=== PATIENT | female | born 1940 | race Caucasian/White ===

== ENCOUNTER 2017-10-11 08:23 | Emergency (ER) | payer MEDICARE, SELFPAY ==
[2017-10-11 08:24] VITALS: BP 131/67; PULSE 88; RESP 16; TEMP 36.7; O2SAT 97; BMI 22.8
--- NOTE | 2017-10-11 08:36 | CT_ITS ---
STUDY: CT ABDOMEN AND PELVIS WITH CONTRAST REASON FOR EXAM: Female, 77 years old. Right lower quadrant and abdominal pain since Saturday. RADIATION DOSAGE (If Supplied By Facility): CTDIvol = ( 9.75 ) mGy, DLP = ( 471.64 ) mGycm TECHNIQUE: Transaxial images were obtained from the dome of the diaphragm to the symphysis pubis without oral contrast. 100 ml of Isovue 300 contrast was administered. Sagittal and coronal images were reconstructed. Individualized dose optimization techniques were used for this CT. COMPARISON: Comparison is made with prior study dated April 11, 2013. FINDINGS: Stable mild degree of increased markings at the lung bases suggestive of scarring. Coronary artery calcification. Mild degree of intrahepatic biliary ductal dilatation. The patient is status post cholecystectomy. The common bile duct is slightly dilated measuring 9.3 mm. This is unchanged. Normal spleen. Normal pancreas. Normal bilateral adrenal glands. Normal right kidney. Normal left kidney. There is a small hiatal hernia. There is evidence of prior subtotal gastric resection and gastric bypass surgery with anastomosis with the proximal small bowel. Normal small intestine. Fecal material is seen in the colon worse in the right hemicolon. Scattered sigmoid diverticula. The appendix is visualized and appears normal. There is diffuse atherosclerotic calcification of the abdominal aorta, without a demonstrated aneurysm. Normal inferior vena cava. Normal retroperitoneum. Normal urinary bladder. The patient is status post ventral hernia repair with mesh. There are diffuse degenerative changes of the visualized lumbar spine. CT/Abdomen/Pelvis W IV Cont ONLY IMPRESSION: Status post gastric surgery and anastomosis. No acute abnormality is seen. Electronically Signed: Terrell Jules MD at 10:36 EDT Tel [phone], Service support ,
--- NOTE | 2017-10-11 08:40 | ED.DCSUM_ITS ---
- ER Visit Summary Date of Service: 10/11/17 Chief Complaint: Abdominal pain History of Present Illness: The patient is a 77 F right lower quadrant abdominal pain for 3 days. The pain sometimes radiates down her right leg and sometimes into her right upper quadrant, but it is mostly in her right lower quadrant. She has chronic diarrhea, but says this has stopped and now she is not having bowel movements. She did have some fecal incontinence when this started, but is no longer having bowel movements. History of Mica-en-Y gastric bypass and cholecystectomy. Also history of pancreatic mass. Physical Examination: Vital signs are unremarkable. Afebrile. Nontoxic and in no acute distress. Heart regular. Lungs clear. Abdomen soft, nontender, nondistended, normal bowel sounds. Back nontender. Skin appears normal. Test Results: Laboratory studies, urinalysis, and CT pending. Emergency Department Course and Treatment: Exam was fairly unremarkable. No sign of obstruction. No infectious symptoms. We will check basic labs, urinalysis, CT given her age and surgical history. Hemoglobin 11.6. CO2 33, glucose 126, creatinine 1.06. Lipase and hepatic function unremarkable. Urinalysis shows positive leuk esterase, positive nitrites, 0-5 white cells and 1+ bacteria. Culture is pending. CT abdomen showed postoperative changes but nothing acute. Patient's vital signs and exam are unremarkable. Laboratory studies reassuring. No sign of sepsis. No sign of organ failure. She does have some evidence of a UTI. I will start her on Keflex. She will follow-up closely with her doctor. Return for any new or worsening issues. Treatment Plan: As above Disposition: Discharged Impression: 1. UTI acute cystitis This note was generated with [employer] dictation software. It may contain incorrect words, spelling, and punctuation that were not noted in review of the chart prior to signing ED Disposition - Plan for ED Patient: Chief Complaint: Abd Pain Referrals: Melissa Montes MD [Primary Care Provider] -
[2017-10-11] MEDS: 0.9% Normal Saline 1,000 ML 125 ML IV (08:55)
[2017-10-11] MEDS: Morphine 2 MG/ML Syringe IV (08:55)
[2017-10-11 08:58] LABS: Absolute Lymphocyte Count 1.94 X10^3/ul (0.83-4.51); Absolute Neutrophil Count 3.1 X10^3/uL (2.0-7.7); Basophil# 0.03 X10^3/uL; Basophil% 0.5 % (0-1); Eosinophil# 0.61 X10^3/uL; Eosinophils% 9.9 % (0-5); Hematocrit 37.3 % (37-47); Hemoglobin 11.6 g/dl (12.0-15.0); Lymphocyte # 1.94 X10^3/ul (4.0); Lymphocyte % 31.4 % (19-41); Mean Corp Hgb Conc 31.1 g/gl (32-36); Mean Corpuscular Hgb 29.4 pg (27.0-32.0); Mean Corpuscular Volume 94.7 fL (81-99); Mean Platelet Vol. 9.5 fl (6.2-12.0); Monocyte# 0.48 X10^3/uL; Monocyte% 7.8 % (0-10); Neutrophil # 3.12 X10^3/uL (2.7-7.7); Neutrophil % 50.4 % (47-70); POSITIVE COUNT NO; POSITIVE DIFFERENTIAL NO; POSITIVE MORPHOLOGY NO; Platelet Count 265 K/mm3 (150-450); RBC Distribution Width CV 12.7 % (11.6-14.6); RBC Distribution Width SD 44.2 fl (35.1-43.9); Red Blood Count 3.94 M/mm3 (4.2-5.4); White Blood Count 6.2 K/mm3 (4.4-11.0)
[2017-10-11 09:13] LABS: AST(SGOT) 14 U/L (15-37); Alanine Aminotransfer ALT/SGPT 16 U/L (13-56); Albumin, Serum 3.7 g/dL (3.2-5.0); Alkaline Phosphatase 96 U/L (45-117); Anion Gap 5 (5-15); BUN 14 mg/dL (7-18); BUN/Creat Ratio 13.2 RATIO (10-20); Calcium,Total 8.8 mg/dL (8.5-10.1); Chloride 103 mmol/L (98-107); Creatinine, Serum 1.06 mg/dL (0.55-1.02); EST Glomerular Filtration Rate 53 mL/min (>60); Est Glom Filt Rate - Afr Amer 65 mL/min (>60); Estimated Creatinine Clearance 35.15 ml/min; Globulin 3.7 g/dL (2.2-4.2); Glucose 126 mg/dL (74-106); Lipase 120 U/L (73-393); Potassium 4.2 mmol/L (3.5-5.1); Protein, Total 7.4 g/dL (6.4-8.2); Sodium Level 141 mmol/L (136-145)
[2017-10-11 10:31] LABS: Mucous, Urine 0 SEEN /hpf (<or=2+); Red Blood Cells-Urine 0 SEEN /hpf (0-5)
[2017-10-11 10:38] LABS: Color, Urine Yellow (Yellow); Glucose, Dipstick Normal (Normal); Ketone-Dipstick Negative (Negative); Leukocyte Esterase-Dipstick 25 /ul (Negative); Nitrite-Dipstick Positive (Negative); Occult Blood-Urine Negative /ul (Negative); Protein-Dipstick Negative (Negative); Urine Bilirubin Dipstick Negative (Negative); Urine Clarity Sl. Cloudy (Clear); Urine Urobilinogen Normal (Normal)
[2017-10-11 10:58] VITALS: BP 126/59; PULSE 62; RESP 15; O2SAT 97
[2017-10-11 10:58] LABS: Bacteria 1+ /hpf (None Seen); Squamous Epithelial Cells - UA 0-5 SEEN /hpf (5-10); White Blood Cells 0-5 SEEN /hpf (0-5)
--- NOTE | 2017-10-11 11:40 | ED.DEP ---
ED Disposition - Plan for ED Patient: Chief Complaint: Abd Pain Instructions: ED UTI Cystitis Female Prescriptions: Cephalexin [Keflex] 500 mg PO Q6 #28 cap Referrals: Melissa Montes MD [Primary Care Provider] -
== END 2017-10-11 12:04 | disposition home or self-care (01) ==
PROVIDERS: Emergency Provider Emergency Medicine; Family Provider Internal Medicine; PCP Internal Medicine
DX: N30.00 Acute cystitis without hematuria (principal); E11.9 Type 2 diabetes mellitus without complications; I10 Essential (primary) hypertension; E03.9 Hypothyroidism, unspecified; K52.9 Noninfective gastroenteritis and colitis, unspecified; G25.81 Restless legs syndrome; Z79.84 Long term (current) use of oral hypoglycemic drugs; Z79.899 Other long term (current) drug therapy; Z98.84 Bariatric surgery status; Z90.49 Acquired absence of other specified parts of digestive tract
CPT/HCPCS: 74177; 80053; 81001; 83690; 85025; 87086; 87088; 87186; 96361; 96374; 99282; J7030; Q9967

== ENCOUNTER → 2018-03-13 11:30 | Outpatient (CLI) | payer MEDICARE, SELFPAY ==
--- NOTE | 2018-03-13 11:35 | RAD_ITS ---
STUDY: X-RAY - PELVIS AND RIGHT HIP REASON FOR EXAM: Female, 77 years old. Low back pain and right hip pain x years. TECHNIQUE: Radiological exam, hip, unilateral, with pelvis when performed; 2 or 3 views. COMPARISON: None. FINDINGS: There is a non-specific bowel gas pattern. Normal visualized soft tissue structures. Normal bilateral iliac wings, sacroiliac joints and visualized sacrum. Normal bilateral superior and inferior pubic rami. Normal pubic symphysis. Normal bilateral ischial tuberosities. Normal visualized femoral head. Normal acetabulum. Normal hip joint. RAD/HIP, UNI W/ Pelvis 2-3 Views IMPRESSION: Normal x-ray examination of the pelvis and right hip. Electronically Signed: Miky Ramos MD at 9:03 EDT , Service support ,
--- NOTE | 2018-03-13 11:35 | RAD_ITS ---
STUDY: X-RAY - LUMBAR SPINE REASON FOR EXAM: Female, 77 years old. Low back pain and right hip pain x years. TECHNIQUE: 5 view(s) of the lumbar spine were obtained. COMPARISON: 12/14/2016. FINDINGS: Normal lumbar lordosis. There is no substantial scoliosis. Mild degenerative anterolisthesis of L3 on L4 is unchanged. Normal vertebral bodies and endplates. Mild L3-L4 disc space height narrowing. The remaining lumbar disc space heights are normal. No suspicious acute fractures. No lytic or blastic lesions. The soft tissue structures are unremarkable. RAD/L/S Spine Min 4 Views IMPRESSION: 1. Mild degenerative anterolisthesis of L3 on L4 with mild L3-L4 disc space height narrowing. 2. No acute fractures or acute osseous abnormality of the lumbar spine. 3. No interval change when compared to 12/14/2016. Electronically Signed: Miky Ramos MD at 9:02 EDT , Service support ,
== END ==
PROVIDERS: Family Provider Internal Medicine; PCP Internal Medicine; Visit Provider Nurse Practitioner Family
DX: M25.551 Pain in right hip (principal); M54.9 Dorsalgia, unspecified
CPT/HCPCS: 72110; 73502

== ENCOUNTER 2018-05-08 07:48 | Inpatient (IN) | payer MEDICARE, SELFPAY ==
[2018-05-08] VITALS (9 sets, daily range): BP systolic 93–119; BP diastolic 42–67; PULSE 97–111; RESP 14–18; TEMP 36.6–36.8; O2SAT 93–100; BMI 21.9; BMI 23.0
--- NOTE | 2018-05-08 08:07 | EKG12_ITS ---
Test Reason : GI BLEED Blood Pressure : / mmHG Vent. Rate : 105 BPM Atrial Rate : 105 BPM P-R Int : 134 ms QRS Dur : 078 ms QT Int : 340 ms P-R-T Axes : 064 -06 063 degrees QTc Int : 449 ms Sinus tachycardia Otherwise normal ECG Confirmed by SAKINA COHEN ([id number]), photographic editor CHANDLER WATSON ([id number]) on 05/12/2018 2:29:20 PM Referred By: JAZMIN Confirmed By:SAKINA COHEN
--- NOTE | 2018-05-08 08:15 | ED.VISSUMM ---
- ER Visit Summary Date of Service: 05/08/18 Chief Complaint: Diarrhea History of Present Illness: The patient is a 78 F with diarrhea. This is the third day. Her bowel movements are loose and dark. She believes she can smell blood. She does have some associated upper abdominal pain. She has a history of a Mica-en-Y gastric bypass which, according to the patient, required surgical revision, years ago. She had had some bleeding at that time. She does not use blood thinners. She has not seen gross blood. She denies any fevers, recent antibiotics, recent hospitalization. Physical Examination: Blood pressure 93/42 and heart rate 111. Otherwise vitals unremarkable. Afebrile. Patient is alert and oriented. Sitting comfortably. Slightly pale. Heart regular. Lungs clear. Upper hemiabdomen is slightly tender to palpation diffusely. No guarding or rebound. Chaperoned rectal exam showed no gross blood, masses, or tenderness. Test Results: EKG, laboratory studies, type and screen pending at this time. CT pending. Emergency Department Course and Treatment: Patient was placed on a monitor. She was treated with a fluid bolus and Protonix. It is unclear at this time if she is bleeding. Hemoccult testing is pending. Type and screen and coags pending. Imaging was ordered because of her pain. She declined pain medicine while awaiting results. Hemoccult testing was positive. Her hemoglobin was normal. Glucose 239, BUN 48, creatinine 4.35. Coags normal. Type and screen done. CT showed pancolitis. Patient will need admission. I spoke with the hospitalist who requested a lactate. She also requested we hold antibiotics until their evaluation first. Treatment Plan: As above Disposition: Admission Impression: 1. Acute kidney injury 2. Pancolitis This note was generated with [employer] dictation software. It may contain incorrect words, spelling, and punctuation that were not noted in review of the chart prior to signing ED Disposition - Plan for ED Patient: Chief Complaint: GI Bleed Referrals: Melissa Montes MD [Primary Care Provider] -
[2018-05-08 08:37] LABS: Absolute Neutrophil Count 6.8 X10^3/uL (2.0-7.7); Basophil# 0.02 X10^3/uL; Eosinophil# 0.01 X10^3/uL; Hematocrit 37.4 % (37-47); Lymphocyte # 1.27 X10^3/ul (4.0); Mean Corp Hgb Conc 32.1 g/gl (32-36); Mean Corpuscular Hgb 30.3 pg (27.0-32.0); Mean Corpuscular Volume 94.4 fL (81-99); Mean Platelet Vol. 10.1 fl (6.2-12.0); Monocyte# 1.85 X10^3/uL; Neutrophil # 6.82 X10^3/uL (2.7-7.7); Platelet Count 331 K/mm3 (150-450); RBC Distribution Width CV 13.3 % (11.6-14.6); RBC Distribution Width SD 45.9 fl (35.1-43.9); Red Blood Count 3.96 M/mm3 (4.2-5.4)
[2018-05-08] MEDS: 0.9% Normal Saline 1,000 ML 1000 ML IV (08:37)
[2018-05-08 08:38] LABS: Differential Indicated SCAN CRITERIA MET; POSITIVE COUNT NO; POSITIVE DIFFERENTIAL YES; POSITIVE MORPHOLOGY YES
[2018-05-08 08:48] LABS: ALB/GLOB Ratio 0.8 RATIO (0.9-2.4); AST(SGOT) 13 U/L (15-37); Alanine Aminotransfer ALT/SGPT 18 U/L (13-56); Albumin, Serum 3.4 g/dL (3.2-5.0); Alkaline Phosphatase 106 U/L (45-117); Anion Gap 9 (5-15); BUN 48 mg/dL (7-18); Calcium,Total 8.2 mg/dL (8.5-10.1); Chloride 106 mmol/L (98-107); Creatinine, Serum 4.35 mg/dL (0.55-1.02); EST Glomerular Filtration Rate 10 mL/min (>60); Est Glom Filt Rate - Afr Amer 13 mL/min (>60); Estimated Creatinine Clearance 8.43 ml/min; Globulin 4.1 g/dL (2.2-4.2); Glucose 239 mg/dL (74-106); Lipase 86 U/L (73-393); Potassium 4.7 mmol/L (3.5-5.1); Protein, Total 7.5 g/dL (6.4-8.2); Sodium Level 132 mmol/L (136-145)
--- NOTE | 2018-05-08 08:56 | CT_ITS ---
STUDY: CT ABDOMEN AND PELVIS WITHOUT CONTRAST REASON FOR EXAM: Female, 78 years old. One-week history of rectal/vaginal bleeding and dizziness. RADIATION DOSAGE (If Supplied By Facility): CTDIvol = ( 10.54 ) mGy, DLP = ( 453.60 ) mGycm TECHNIQUE: Transaxial images were obtained from the dome of the diaphragm to the symphysis pubis with oral contrast, and without intravenous contrast. Sagittal and coronal images were reconstructed. Individualized dose optimization techniques were used for this CT. COMPARISON: Comparison is made with prior study dated October 11, 2017. FINDINGS: Minimal thickening of the left major fissure suggestive of scarring. There is evidence of coronary artery calcification. Normal liver. There are surgical clips in the gallbladder fossa consistent with a prior cholecystectomy. Normal spleen. Normal pancreas. Normal bilateral adrenal glands. Normal right kidney. Normal left kidney. Once again, the patient is status post subtotal gastrectomy. An anastomosis is seen in the region of the second portion of the duodenum. I suspect a duodenal diverticulum. There is thickening of the terminal ileum. Crohn's disease should be ruled out. There is evidence of a mural thickening of the colon with increased markings in the surrounding peritoneal fat suggestive of colitis. This extends into the sigmoid colon. Scattered sigmoid diverticula. The appendix is visualized and appears normal. Normal abdominal aorta. Normal inferior vena cava. Normal retroperitoneum. Normal urinary bladder. There is evidence of a prior anterior abdominal wall hernia repair with a mesh. There are degenerative changes of the visualized lumbar spine. CT/Abdomen/Pel W ORAL Cont Only IMPRESSION: Findings suggestive of a bower colitis with thickening of the terminal ileum. The patient is status post subtotal gastrectomy with anastomosis. Electronically Signed: Terrell Jules MD at 10:38 EST Tel [phone], Service support ,
[2018-05-08 08:58] LABS: Lymphocyte 9 % (19-41); Metamyelocyte 8 % (0-1); Monocyte 15 % (0-10); Neutrophil-Band 15 % (0-5); Neutrophil-Segmented 53 % (47-70)
[2018-05-08 08:59] LABS: Platelet Estimate ADEQUATE (ADEQ); Red Cell Morphology NORM C+C NORMAL (NORM C&C)
[2018-05-08 09:00] LABS: Scan Smear per Review Criteria MANUAL DIFF
[2018-05-08 09:24] LABS: International Normalized Ratio 1.2; Prothrombin Time (Protime)PT. 14.7 SECONDS (11.7-14.9)
[2018-05-08 09:25] LABS: Partial Thromboplast Time 29.3 Seconds (24.1-36.2)
[2018-05-08] MEDS: 0.9% Normal Saline 1,000 ML 150 ML IV ×3 (10:18→21:52)
--- NOTE | 2018-05-08 10:21 | NURSING ---
CALLED MEET [facility] FOR A MED LIST. THEY WILL FAX IT
--- NOTE | 2018-05-08 11:34 | HP.PCM_ITS ---
Problem List (1) Diarrhea Status: Acute (2) Diarrhea Status: Acute (3) Weakness Status: Acute History of Present Illness Date of Admission: 05/08/18 Chief Complaint: diarrhea, generalised weakness The patient is a 78 year old F with an extensive past medical history as listed below. He was admitted through the ED on 05/08/2018 with a complaint of generalized weakness and diarrhea for 1 week. Patient states she ate ice cream about a week ago with a group of friends. Subsequently started having diarrhea and thought it would resolve. Diarrhea however persisted all week and is dark, goes about 3 times a day. She has not noticed any meenakshi blood. She is also been getting progressively weaker and has had to be helped by her to mobilize around the house. She denies any fever or chills, cough or chest pain and admits to mild generalized abdominal pain denies any vomiting. He decided coming to the ED today as his symptoms were not resolving. Blood pressure 106/66 in the ED and vitals were otherwise stable. Chemistry shows sodium of 132 and creatinine of 4.35 with baseline being less than 1. Bicarb was 17 and anion gap was 9. CBC showed no leukocytosis and abdominal CT done showed pancolitis with thickening of the terminal ileum suggesting that Crohn's should be ruled out. She is been admitted to be managed for AK I due to dehydration and generalized debility due to dehydration as well as pancolitis. 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) Hypothyroid (Chronic) Diabetes mellitus (Chronic) Allergies Benzodiazepines Allergy (Verified 05/08/18 07:51) Unknown ciprofloxacin [From Cipro] Allergy (Verified 05/08/18 07:51) Itching ciprofloxacin HCl [From Cipro] Allergy (Verified 05/08/18 07:51) Itching meperidine HCl [From Demerol] Allergy (Verified 05/08/18 07:51) Unknown lorazepam [From Ativan] Adverse Reaction (Verified 05/08/18 07:51) Other physcosis nitrofurantoin [From Macrobid] Adverse Reaction (Verified 05/08/18 07:51) Vomiting nitrofurantoin macrocrystalline [From Macrobid] Adverse Reaction (Verified 05/08/18 07:51) Vomiting Sulfa (Sulfonamide Antibiotics) Adverse Reaction (Verified 05/08/18 07:51) Vomiting Xanthines Adverse Reaction (Verified 05/08/18 07:51) Vomiting Home Medications: Ambulatory Orders Medication Instructions Recorded Cyanocobalamin [Vitamin B12] 1,000 mcg IM UD 04/11/13 Gabapentin [Neurontin] 600 mg PO BID 04/11/13 Glimepiride [Amaryl] 1 mg PO DAILY 04/11/13 Levothyroxine [Synthroid] 25 mcg PO DAILY 04/11/13 Melatonin 10 mg PO QHS 04/11/13 Metformin HCl [Glucophage] 850 mg PO BIDCM 04/11/13 Mirtazapine [Remeron] 15 mg PO QHS 04/11/13 Paroxetine HCl [Paxil] 10 mg PO DAILY 04/11/13 Cyclobenzaprine [Flexeril] 10 mg PO QHS 11/06/15 buPROPion XL [Wellbutrin Xl] 150 mg PO DAILY 11/06/15 Hydrocodone Bitart/Apap 5-325 1 - 2 tablet PO Q4H PRN PRN #12 12/14/16 [[place] 5/325] tablet Acyclovir [Zovirax] 1 applic TOPICAL 5X/DAY 05/08/18 Cholecalciferol (VIT D3) [Vitamin 2,000 unit PO DAILY 05/08/18 D] Lisinopril [Zestril] 10 mg PO BID 05/08/18 Surgical History: cholecystectomy, gastric bypass, - - herniorraphy Psychiatric History: Anxiety 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 Denies: Chills, Fever Eyes: Denies: Blurred vision HEENT: Denies: Head Aches, Sinus Congestion, Sinus Drainage Cardiovascular: Denies: Chest Pain, Chest Pressure, Chest Tightness, Palpitations Respiratory: Denies: Cough, Shortness of Breath, Shortness of breath at rest, Sputum production Gastrointestinal: Reports: Abdominal Pain, Diarrhea, Nausea, - - complains of dark coloured stools- ?melena. Denies: Constipation, Dyspepsia, Hematemesis, Hematochezia, Melena, Vomiting Genitourinary: Denies: Dysuria Musculoskeletal: Denies: Joint Pain, Joint Tenderness Skin: Denies: Rash, Wounds Neurological: Denies: Numbness, Tingling, Focal weakness Psychiatric: Denies: Anxiety, Depression, Homicidal Ideations, Suicidal Ideations Hematologic/ Lymphatic: Denies: Easy Bruising, Easy Bleeding VTE Information - Inpt Only VTE Present on Admission: No VTE Mechan Device Prophylaxis: SCD's Patient Problems: Active and Suspected Problems Diarrhea (Acute) Diarrhea (Acute) Weakness (Acute) - Physical Exam General: Alert, Oriented x3, Cooperative, No apparent distress, Lethargic HEENT: Atraumatic, PERRLA, EOMI, Normocephalic Oral: Dry Mucosa Neck: Supple, No JVD, Negative Carotid Bruits Lungs: Clear to auscultation, Normal air movement, No rhonchi, No wheeze, No rales Cardiovascular: Regular rate, Regular Rhythm, Normal S1, Normal S2, No murmurs Abdomen: Bowel Sounds Present, Soft, Non-Distended, No Hepato-splenomegaly, - - mild generalised tenderness, no guarding or rebound tenderness Extremities: No clubbing, No cyanosis, No edema, Capillary Refill Less than 3 S econds Skin: No rashes, No breakdown Musculoskeletal: No Tenderness to Palpation of Joints or Extremities Lymphatic: No Cervical, Supraclavicular, or Inguinal Adenopathy Neurological: Cranial nerves II-XII grossly intact, Neuro grossly intact, Motor Exam 5/5 strength throughout Psych/Mental Status: Normal Affect, Appropriate, Alert and oriented to time, place, person, mood and affect Vital Signs Temp Pulse Resp BP Pulse Ox 98 F 99 14 106/66 96 05/08/18 07:49 05/08/18 10:07 05/08/18 10:07 05/08/18 10:07 05/08/18 10:07 Oxygen Delivery Method Room Air Weight: 120 lb Body Mass Index (BMI) 21.9 Microbiology Past 72 Hours 05/08/18 08:10 Stool Occult Blood ([facility]) - Final Stool Occult Blood Positive Laboratory Tests Past 24 Hrs 05/08/18 05/08/18 05/08/18 08:15 08:15 08:15 WBC 10.0 RBC 3.96 L Hgb 12.0 Hct 37.4 MCV 94.4 MCH 30.3 MCHC 32.1 RDW 13.3 RDW Differential 45.9 H Plt Count 331 MPV 10.1 Immature Gran % (Auto) DIRECTOR OF PRIMARY Neut % (Auto) DIRECTOR OF PRIMARY Lymph % (Auto) DIRECTOR OF PRIMARY [place] % (Auto) DIRECTOR OF PRIMARY Eos % (Auto) DIRECTOR OF PRIMARY Baso % (Auto) DIRECTOR OF PRIMARY Absolute Neuts (auto) 6.8 Absolute Lymphs (auto) 0.90 Total Counted Not Reportable Neutrophils % (Manual) 53 Band Neutrophils % 15 H Lymphocytes % (Manual) 9 L Monocytes % (Manual) 15 H Metamyelocytes % 8 H Diff Path Review May foll Platelet Estimate ADEQUATE RBC Morphology NORM C+C PT Cancelled INR Cancelled APTT Cancelled Sodium 132 L Potassium 4.7 Chloride 106 Carbon Dioxide 17.0 L Anion Gap 9 BUN 48 H Creatinine 4.35 H Estim Creat Clear Calc 8.43 Est GFR (MDRD) Af Amer 13 L Est GFR (MDRD) Non-Af 10 L BUN/Creatinine Ratio 11.0 Glucose 239 H Calcium 8.2 L Total Bilirubin 0.50 AST 13 L ALT 18 Alkaline Phosphatase 106 Total Protein 7.5 Albumin 3.4 Globulin 4.1 Albumin/Globulin Ratio 0.8 L Lipase 86 Blood Type Antibody Screen 05/08/18 05/08/18 08:15 08:50 WBC RBC Hgb Hct MCV MCH MCHC RDW RDW Differential Plt Count MPV Immature Gran % (Auto) Neut % (Auto) Lymph % (Auto) [place] % (Auto) Eos % (Auto) Baso % (Auto) Absolute Neuts (auto) Absolute Lymphs (auto) Total Counted Neutrophils % (Manual) Band Neutrophils % Lymphocytes % (Manual) Monocytes % (Manual) Metamyelocytes % Diff Path Review Platelet Estimate RBC Morphology PT 14.7 INR 1.2 APTT 29.3 Sodium Potassium Chloride Carbon Dioxide Anion Gap BUN Creatinine Estim Creat Clear Calc Est GFR (MDRD) Af Amer Est GFR (MDRD) Non-Af BUN/Creatinine Ratio Glucose Calcium Total Bilirubin AST ALT Alkaline Phosphatase Total Protein Albumin Globulin Albumin/Globulin Ratio Lipase Blood Type B POSITIVE Antibody Screen NEGATIVE Diagnostic Data Abdomen CT 05/08/18 08:56 IMPRESSION: Findings suggestive of a bower colitis with thickening of the terminal ileum. The patient is status post subtotal gastrectomy with anastomosis. Electronically Signed: Terrell Jules MD at 10:38 EST Tel [phone], Service support , Assessment/Plan All Active Problems Diarrhea (Acute) Diarrhea (Acute) Weakness (Acute) Chronic diarrhea (Acute) Pancreatic mass (Acute) Chest pain at rest (Acute) 78-year-old female admitted with a complaint of diarrhea of one week and generalized weakness. 1. Gastroenteritis * diarrhea hasnt resolved over one week. Stools are dark * very lethargic and dehydrated. Oral mucosa very dry * CT abdomen showed pancolitis with thickening of terminal ileum. is post subtotal gastrectomy with anastomosis. * admit to med surg with telemetry * IV NS @ 150cc/hr * keep NPO for now * check C diff; if negative, give loperamide * stool for ova and parasites and enteric stool pathogens * stool for occult blood * 2. General debility due to diarhea * treat diarrhea as under 1. * PT/OT consult * 3. ROMI likely pre-renal due to dehydration * Creatinine is 4.35 with baseline being less than 1. * Will hydrate with IV fluids and monitor. Will check urine electrolytes. Renal ultrasound. * If creatinine does not improve with IVF, will get nephrology on board. * 3. Nonanion gap acidosis * bicarb is 17,a nd anion gap is 9 * likely due to GI loss from diarrhea * Will likely resolve his diarrhea also resolved. * 4. Hyponatremia: * Likely hypovolemic hypotonic hyponatremia from dehydration. * Will hydrate with IV fluids and monitor. * 5. Hypothyroidism: On Synthroid. Will continue. Will check TSH 6. Diabetes mellitus: On metformin and gimepiride. Will hold this on account of diarrhea and ROMI. Insulin sliding scale. Accu-Cheks AC at bedtime. 6. Hypertension: On lisinopril. Will hold in light of severe AK. Hydralazine as needed 7. Depression: On Wellbutrin and Remeron. DVT prophylaxis: SCDs GI prophylaxis: Famotidine CODE STATUS: Full code Patient has been counseled extensively about different types of CODE STATUS including full code, DNR CCA and DNR CCA. Patient elects for full code. Total [id number] time was 17 minutes. Code Visit Inpatient E&M: 55452 Init Hosp L3 Procedures: 04949 Advncd Care Plan 30 Min
--- NOTE | 2018-05-08 11:54 | NURSING ---
313 KORAM PANCOLITIS, ROMI
[2018-05-08] MEDS: Acetaminophen 325 MG Tablet 975 MG PO (13:22)
[2018-05-08] MEDS: Gabapentin 600 MG Tablet PO (16:17)
[2018-05-08] MEDS: Insulin Lispro 100 UNIT/ML INSULN.PEN SQ ×2 (16:38→22:38)
[2018-05-08 16:40] LABS: Bedside Glucose 168 mg/dL (70-110)
[2018-05-08] MEDS: HYDROcodone Bitartrate/Apap 5/325 Tablet PO (20:09)
[2018-05-08] MEDS: Mirtazapine 15 MG Tablet PO (22:38)
[2018-05-08] MEDS: MELATONIN 10 MG TABLET PO (22:38)
[2018-05-08 22:46] LABS: Bedside Glucose 191 mg/dL (70-110)
[2018-05-09] VITALS (9 sets, daily range): BP systolic 98–126; BP diastolic 47–80; PULSE 99–111; RESP 16–18; TEMP 36.5–36.8; O2SAT 93–97
[2018-05-09 05:14] LABS: Bacteria 0 SEEN /hpf (None Seen); Mucous, Urine 0 SEEN /hpf (<or=2+); Red Blood Cells-Urine 0 SEEN /hpf (0-5); Squamous Epithelial Cells - UA 0 SEEN /hpf (5-10)
[2018-05-09 05:31] LABS: Glucose, Dipstick Normal (Normal); Ketone-Dipstick 5 mg/dl (Negative); Leukocyte Esterase-Dipstick 100 /ul (Negative); Nitrite-Dipstick Positive (Negative); Occult Blood-Urine 50 /ul (Negative); Protein-Dipstick 100 mg/dl (Negative); Specific Gravity, Urine 1.015 (1.002-1.030); Urine Bilirubin Dipstick Negative (Negative); Urine Urobilinogen Normal (Normal)
[2018-05-09 05:39] LABS: Color, Urine Yellow (Yellow); Hyaline Cast 0-5 SEEN /lpf (0-5); Urine Clarity Clear (Clear); White Blood Cells 0-5 SEEN /hpf (0-5)
[2018-05-09] MEDS: 0.9% Normal Saline 1,000 ML 150 ML IV ×3 (06:30→21:21)
[2018-05-09] MEDS: Levothyroxine 25 MCG TABLET PO (06:30)
[2018-05-09 06:41] LABS: Bedside Glucose 105 mg/dL (70-110)
[2018-05-09 06:57] LABS: Absolute Lymphocyte Count 1.73 X10^3/ul (0.83-4.51); Absolute Neutrophil Count 3.8 X10^3/uL (2.0-7.7); Basophil# 0.03 X10^3/uL; Basophil% 0.4 % (0-1); Eosinophil# 0.11 X10^3/uL; Eosinophils% 1.5 % (0-5); Hematocrit 29.7 % (37-47); Hemoglobin 9.6 g/dl (12.0-15.0); Lymphocyte # 1.73 X10^3/ul (4.0); Lymphocyte % 23.9 % (19-41); Mean Corp Hgb Conc 32.3 g/gl (32-36); Mean Corpuscular Hgb 30.5 pg (27.0-32.0); Mean Corpuscular Volume 94.3 fL (81-99); Mean Platelet Vol. 10.3 fl (6.2-12.0); Monocyte# 1.49 X10^3/uL; Monocyte% 20.6 % (0-10); Neutrophil # 3.82 X10^3/uL (2.7-7.7); Neutrophil % 52.8 % (47-70); Platelet Count 265 K/mm3 (150-450); RBC Distribution Width CV 13.1 % (11.6-14.6); RBC Distribution Width SD 43.4 fl (35.1-43.9); Red Blood Count 3.15 M/mm3 (4.2-5.4); White Blood Count 7.2 K/mm3 (4.4-11.0)
[2018-05-09 07:00] LABS: POSITIVE COUNT NO; POSITIVE DIFFERENTIAL NO; POSITIVE MORPHOLOGY NO
[2018-05-09 07:11] LABS: Anion Gap 8 (5-15); BUN 45 mg/dL (7-18); BUN/Creat Ratio 16.4 RATIO (10-20); Chloride 115 mmol/L (98-107); Creatinine, Serum 2.74 mg/dL (0.55-1.02); EST Glomerular Filtration Rate 18 mL/min (>60); Est Glom Filt Rate - Afr Amer 22 mL/min (>60); Estimated Creatinine Clearance 13.38 ml/min; Glucose 104 mg/dL (74-106); Sodium Level 138 mmol/L (136-145)
[2018-05-09] MEDS: buPROPion (XL) 150 MG TABLET.XL PO (09:14)
[2018-05-09] MEDS: Gabapentin 600 MG Tablet PO ×2 (09:14→16:56)
[2018-05-09] MEDS: PARoxetine 10 MG Tablet PO (09:14)
--- NOTE | 2018-05-09 09:30 | CASEMGMT ---
LUDIN BISHOP INITIAL ASSESSMENT D/C PLAN: Home Face to Face with patient for initial transition planning/care coordination assessment. LUDIN BISHOP introduced self and [facility]. Care providers, pharmacy, and demographics verified. PCP: Jyoti Lynch Pharmacy: [facility] Retail day of discharge only. [facility]: Yes Living Will/HPOA: Has both. Copies found in e-chart. , Ramírez, is HPOA LNOK: , Ramírez Living Arrangements: Lives with in a bi-level home. 5 steps to enter. Transportation: Self, . DME: Denies using any DME and denies needs. HHC: Has never used HHC in the past and denies needs. Pt wishes to return home on discharge. No needs identified. CM to follow for any further discharge planning needs that may arise. Jennifer FLOOD RN, CM
--- NOTE | 2018-05-09 10:39 | PCM.PN.HOSP ---
Patient Problems: Active and Suspected Problems Diarrhea (Acute) Diarrhea (Acute) Weakness (Acute) Subjective: Patient seen and examined. She was admitted yesterday with complaint of diarrhea and generalized weaknesses and is been managed for pancolitis and AK I. Patient feels better today though she still having diarrhea. She denies any fever or chills, cough or chest pain, shortness of breath abdominal pain or vomiting. She says the frequency of the diarrhea has reduced but she is still having loose watery stools. C. difficile screen is pending. Vitals/I&O's: Vital Signs Temp Pulse Resp BP Pulse Ox 98.1 F 102 H 18 98/47 L 93 05/09/18 08:41 05/09/18 08:41 05/09/18 08:41 05/09/18 08:41 05/09/18 08:41 Oxygen Delivery Method Room Air Weight: 126 lb Body Mass Index (BMI) 23.0 Intake and Output for Last 24 Hours 05/07/18 05/08/18 05/09/18 23:59 23:59 23:59 Intake Total 2297 / 2297 Balance 2297 / 2297 General: Alert, Oriented x3, Cooperative, No apparent distress HEENT: Atraumatic, PERRLA, EOMI, Normocephalic Oral: Dry Mucosa Neck: Supple, No JVD, Negative Carotid Bruits Lungs: Clear to auscultation, Normal air movement, No rhonchi, No wheeze, No rales Cardiovascular: Regular rate, Regular Rhythm, Normal S1, Normal S2, No murmurs Abdomen: Bowel Sounds Present, Soft, - - mild generalised tenderness, no guarding or rebound tenderness Extremities: No clubbing, No cyanosis, No edema, Capillary Refill Less than 3 Seconds Skin: No rashes, No breakdown Musculoskeletal: No Tenderness to Palpation of Joints or Extremities Lymphatic: No Cervical, Supraclavicular, or Inguinal Adenopathy Neurological: Cranial nerves II-XII grossly intact Psych/Mental Status: Normal Affect, Appropriate, Alert and oriented to time, place, person, mood and affect Microbiology Past 72 Hours 05/08/18 08:10 Stool Stool Occult Blood (ENOCH) - Final Occult Blood Positive Laboratory Results 05/08/18 12:15: Lactic Acid 1.0 05/08/18 16:35: POC Glucose 168 H 05/08/18 22:36: POC Glucose 191 H 05/09/18 04:45: Urine Color Yellow, Urine Clarity Clear, Urine pH 5.0, Ur Specific [place] 1.015, Urine Protein 100 H, Urine Glucose (UA) Normal, Urine Ketones 5 H, Urine Occult Blood 50 H, Urine Nitrite Positive H, Urine Bilirubin Negative, Urine Urobilinogen Normal, Ur Leukocyte Esterase 100 H, Urine RBC 0 SEEN, Urine WBC 0-5 SEEN, Ur Squamous Epith Cells 0 SEEN, Urine Bacteria 0 SEEN, Hyaline Casts 0-5 SEEN, Urine Mucus 0 SEEN 05/09/18 06:28: WBC 7.2, RBC 3.15 L, Hgb 9.6 L, Hct 29.7 L, MCV 94.3, MCH 30.5, MCHC 32.3, RDW 13.1, RDW Differential 43.4, Plt Count 265, MPV 10.3, Immature Gran % (Auto) 0.800, Neut % (Auto) 52.8, Lymph % (Auto) 23.9, [place] % (Auto) 20.6 H, Eos % (Auto) 1.5, Baso % (Auto) 0.4, Absolute Neuts (auto) 3.8, Absolute Lymphs (auto) 1.73, Total Counted Not Reportable 05/09/18 06:28: Sodium 138, Potassium 4.0, Chloride 115 H, Carbon Dioxide 15.0 L, Anion Gap 8, BUN 45 H, Creatinine 2.74 H, Estim Creat Clear Calc 13.38, Est GFR (MDRD) Af Amer 22 L, Est GFR (MDRD) Non-Af 18 L, BUN/Creatinine Ratio 16.4, Glucose 104, Calcium 7.0 L 05/09/18 06:29: POC Glucose [address] 05/08/18 08:56 IMPRESSION: Findings suggestive of a bower colitis with thickening of the terminal ileum. The patient is status post subtotal gastrectomy with anastomosis. Electronically Signed: Terrell Jules MD at 10:38 EST Tel [phone], Service support , Current Medications Hydrocodone Bitart/Acetaminophen ([place] 5mg-325mg) 1 tablet PO Q4H PRN PRN PRN Reason: PAIN Last Admin: 05/08/18 20:09 Dose: 1 tablet Bupropion HCl (Wellbutrin Xl) 150 mg PO DAILY [facility] Last Admin: 05/09/18 09:14 Dose: 150 mg Cholecalciferol (Vitamin D) 2,000 unit PO DAILY [facility] Last Admin: 05/09/18 09:14 Dose: 2,000 unit Cyclobenzaprine HCl (Flexeril) 10 mg PO QHS [facility] Last Admin: 05/08/18 22:38 Dose: 10 mg Dextrose (D50w Syringe) 0 gm IV X1 PRN; Protocol PRN Reason: Hypoglycemia Gabapentin (Neurontin) 600 mg PO BIDCM [facility] Last Admin: 05/09/18 09:14 Dose: 600 mg Glucagon () 1 mg IM .X1 PRN PRN Reason: Hypoglycemia Sodium Chloride () 1,000 mls @ 150 mls/hr IV .Q6H40M [facility] Last Admin: 05/09/18 06:30 Dose: 150 mls/hr Metronidazole (Flagyl) 500 mg in 100 mls @ 100 mls/hr IV Q8 [facility] Last Admin: 05/09/18 06:30 Dose: 100 mls/hr Insulin Human Lispro (Humalog Kwikpen (Bkc)) 0 unit SQ ACHS [facility]; Protocol Last Admin: 05/09/18 06:31 Dose: Not Given Levothyroxine Sodium (Synthroid) 25 mcg PO DAILY@0600 [facility] Last Admin: 05/09/18 06:30 Dose: 25 mcg Melatonin (Melatonin) 10 mg PO QHS [facility] Last Admin: 05/08/18 22:38 Dose: 10 mg Mirtazapine (Remeron) 15 mg PO QHS [facility] Last Admin: 05/08/18 22:38 Dose: 15 mg Paroxetine HCl (Paxil) 10 mg PO DAILY [facility] Last Admin: 05/09/18 09:14 Dose: 10 mg Sodium Chloride () 5 - 30 ml IV UD PRN PRN Reason: SALINE FLUSH Medical Necessity - Tobacco Use Smoking Status: Former smoker Assessment/Plan All Active Problems Diarrhea (Acute) Diarrhea (Acute) Weakness (Acute) Chronic diarrhea (Acute) Pancreatic mass (Acute) Chest pain at rest (Acute) 78-year-old female admitted with a complaint of diarrhea of one week and generalized weakness. 1. Gastroenteritis still having diarrhea though frequency has reduced Does not feel as lethargic as previously. Oral mucosa still dry. CT abdomen showed pancolitis with thickening of terminal ileum. is post subtotal gastrectomy with anastomosis. continue IV NS @ 150cc/hr C diff is pending. If its negative give loperamide. check C diff; if negative, give loperamide stool for ova and parasites and enteric stool pathogens pending Stool for occult blood is positive. Patient did complain of dark stools. Will consult general surgery o/a of findings of terminal ileitis per CT scan and positive stool for occult bloo on flagyl. She is allergic to ciprofloxacin 2. General debility due to diarhea treat diarrhea as under 1. PT/OT consult 3. ROMI likely pre-renal due to dehydration Cr trended down to 2.74 today with IVF NS aministration. Was 4.35 on admission. renal USG pending UA showed leukocyte esterase of 100 and positive nitrite but no bacteria or white blood cells. 4. Nonanion gap acidosis Bicarb is 15. Anion gap is 8. Still think is due to GI losses. will monitor for resolution with improvement in diarrhea if it persists, will consult nephrology 5. Hyponatremia: resolved. Was likely due to dehydration. 6. Hypothyroidism: On Synthroid. 7. Diabetes mellitus: On metformin and gimepiride. Will hold this on account of diarrhea and ROMI. Insulin sliding scale. Accu-Cheks AC at bedtime. 8. Hypertension: On lisinopril. Will hold in light of severe AK. Hydralazine as needed 9. Depression: On Wellbutrin and Remeron. DVT prophylaxis: SCDs GI prophylaxis: Famotidine CODE STATUS: Full code Patient has been counseled extensively about different types of CODE STATUS including full code, DNR CCA and DNR CCA. Patient elects for full code. Total [id number] time was 17 minutes. Code Visit Inpatient E&M: [id number] [facility] Hosp L3
--- NOTE | 2018-05-09 10:46 | US_ITS ---
STUDY: RENAL ULTRASOUND - COMPLETE REASON FOR EXAM: Female, 78 years old. Acute renal failure. TECHNIQUE: Ultrasound evaluation of the kidneys was performed with real-time and static vanegas-scale imaging. COMPARISON: CT of the abdomen and pelvis, May 08, 2018. FINDINGS: RIGHT KIDNEY: Normal location of the right kidney, which is normal in size. The right kidney measures 9.8 cm. There is increased renal cortical echogenicity. The renal cortex measures 11.3 cm. There is no right renal mass or cyst. There are no right renal calculi. There is no right hydronephrosis. DISTAL RIGHT URETER: There is non-visualization of the distal right ureter. There is no demonstrated right ureterovesical junction calculus. There is a visualized right ureteral jet. LEFT KIDNEY: Normal location of the left kidney, which is normal in size. The left kidney measures 9.0 cm. There is increased renal cortical echogenicity The renal cortex measures 1.5 cm. There is no left renal mass or cyst. There are no left renal calculi. There is no left hydronephrosis. DISTAL LEFT URETER: There is non-visualization of the distal left ureter. There is no demonstrated left ureterovesical junction calculus. There is a visualized left ureteral jet. BLADDER: The distended urinary bladder has a volume of 79.6 ml. There is a normal wall thickness of the distended urinary bladder. There is no demonstrated mass within the urinary bladder. There are no demonstrated bladder calculi. US/Kidney and Bladder IMPRESSION: Increased echogenicity of the bilateral renal cortices, suggestive medical renal disease. The study is otherwise unremarkable. Electronically Signed: Kannan Mccann DO at 17:05 EST Tel [phone], Service support ,
--- NOTE | 2018-05-09 10:52 | PN_ITS ---
Patient Problems: Active and Suspected Problems Diarrhea (Acute) Diarrhea (Acute) Weakness (Acute) Subjective: Patient seen and examined. She was admitted yesterday with complaint of diarrhea and generalized weaknesses and is been managed for pancolitis and AK I. Patient feels better today though she still having diarrhea. She denies any fever or chills, cough or chest pain, shortness of breath abdominal pain or vomiting. She says the frequency of the diarrhea has reduced but she is still having loose watery stools. C. difficile screen is pending. Vitals/I&O's: Vital Signs Temp Pulse Resp BP Pulse Ox 98.1 F 102 H 18 98/47 L 93 05/09/18 08:41 05/09/18 08:41 05/09/18 08:41 05/09/18 08:41 05/09/18 08:41 Oxygen Delivery Method Room Air Weight: 126 lb Body Mass Index (BMI) 23.0 Intake and Output for Last 24 Hours 05/07/18 05/08/18 05/09/18 23:59 23:59 23:59 Intake Total 2297 / 2297 Balance 2297 / 2297 General: Alert, Oriented x3, Cooperative, No apparent distress HEENT: Atraumatic, PERRLA, EOMI, Normocephalic Oral: Dry Mucosa Neck: Supple, No JVD, Negative Carotid Bruits Lungs: Clear to auscultation, Normal air movement, No rhonchi, No wheeze, No rales Cardiovascular: Regular rate, Regular Rhythm, Normal S1, Normal S2, No murmurs Abdomen: Bowel Sounds Present, Soft, - - mild generalised tenderness, no guarding or rebound tenderness Extremities: No clubbing, No cyanosis, No edema, Capillary Refill Less than 3 Seconds Skin: No rashes, No breakdown Musculoskeletal: No Tenderness to Palpation of Joints or Extremities Lymphatic: No Cervical, Supraclavicular, or Inguinal Adenopathy Neurological: Cranial nerves II-XII grossly intact Psych/Mental Status: Normal Affect, Appropriate, Alert and oriented to time, place, person, mood and affect Microbiology Past 72 Hours 05/08/18 08:10 Stool Stool Occult Blood (ENOCH) - Final Occult Blood Positive Laboratory Results 05/08/18 12:15: Lactic Acid 1.0 05/08/18 16:35: POC Glucose 168 H 05/08/18 22:36: POC Glucose 191 H 05/09/18 04:45: Urine Color Yellow, Urine Clarity Clear, Urine pH 5.0, Ur Specific [place] 1.015, Urine Protein 100 H, Urine Glucose (UA) Normal, Urine Ketones 5 H, Urine Occult Blood 50 H, Urine Nitrite Positive H, Urine Bilirubin Negative, Urine Urobilinogen Normal, Ur Leukocyte Esterase 100 H, Urine RBC 0 SEEN, Urine WBC 0-5 SEEN, Ur Squamous Epith Cells 0 SEEN, Urine Bacteria 0 SEEN, Hyaline Casts 0-5 SEEN, Urine Mucus 0 SEEN 05/09/18 06:28: WBC 7.2, RBC 3.15 L, Hgb 9.6 L, Hct 29.7 L, MCV 94.3, MCH 30.5, MCHC 32.3, RDW 13.1, RDW Differential 43.4, Plt Count 265, MPV 10.3, Immature Gran % (Auto) 0.800, Neut % (Auto) 52.8, Lymph % (Auto) 23.9, [place] % (Auto) 20.6 H, Eos % (Auto) 1.5, Baso % (Auto) 0.4, Absolute Neuts (auto) 3.8, Absolute Lymphs (auto) 1.73, Total Counted Not Reportable 05/09/18 06:28: Sodium 138, Potassium 4.0, Chloride 115 H, Carbon Dioxide 15.0 L , Anion Gap 8, BUN 45 H, Creatinine 2.74 H, Estim Creat Clear Calc 13.38, Est GFR (MDRD) Af Amer 22 L, Est GFR (MDRD) Non-Af 18 L, BUN/Creatinine Ratio 16.4, Glucose 104, Calcium 7.0 L 05/09/18 06:29: POC Glucose [address] 05/08/18 08:56 IMPRESSION: Findings suggestive of a bower colitis with thickening of the terminal ileum. The patient is status post subtotal gastrectomy with anastomosis. Electronically Signed: Terrell Jules MD at 10:38 EST Tel [phone], Service support , Current Medications Hydrocodone Bitart/Acetaminophen ([place] 5mg-325mg) 1 tablet PO Q4H PRN PRN PRN Reason: PAIN Last Admin: 05/08/18 20:09 Dose: 1 tablet Bupropion HCl (Wellbutrin Xl) 150 mg PO DAILY [facility] Last Admin: 05/09/18 09:14 Dose: 150 mg Cholecalciferol (Vitamin D) 2,000 unit PO DAILY [facility] Last Admin: 05/09/18 09:14 Dose: 2,000 unit Cyclobenzaprine HCl (Flexeril) 10 mg PO QHS [facility] Last Admin: 05/08/18 22:38 Dose: 10 mg Dextrose (D50w Syringe) 0 gm IV X1 PRN; Protocol PRN Reason: Hypoglycemia Gabapentin (Neurontin) 600 mg PO BIDCM [facility] Last Admin: 05/09/18 09:14 Dose: 600 mg Glucagon () 1 mg IM .X1 PRN PRN Reason: Hypoglycemia Sodium Chloride () 1,000 mls @ 150 mls/hr IV .Q6H40M [facility] Last Admin: 05/09/18 06:30 Dose: 150 mls/hr Metronidazole (Flagyl) 500 mg in 100 mls @ 100 mls/hr IV Q8 [facility] Last Admin: 05/09/18 06:30 Dose: 100 mls/hr Insulin Human Lispro (Humalog Kwikpen (Bkc)) 0 unit SQ ACHS [facility]; Protocol Last Admin: 05/09/18 06:31 Dose: Not Given Levothyroxine Sodium (Synthroid) 25 mcg PO DAILY@0600 [facility] Last Admin: 05/09/18 06:30 Dose: 25 mcg Melatonin (Melatonin) 10 mg PO QHS [facility] Last Admin: 05/08/18 22:38 Dose: 10 mg Mirtazapine (Remeron) 15 mg PO QHS [facility] Last Admin: 05/08/18 22:38 Dose: 15 mg Paroxetine HCl (Paxil) 10 mg PO DAILY [facility] Last Admin: 05/09/18 09:14 Dose: 10 mg Sodium Chloride () 5 - 30 ml IV UD PRN PRN Reason: SALINE FLUSH Medical Necessity - Tobacco Use Smoking Status: Former smoker Assessment/Plan All Active Problems Diarrhea (Acute) Diarrhea (Acute) Weakness (Acute) Chronic diarrhea (Acute) Pancreatic mass (Acute) Chest pain at rest (Acute) 78-year-old female admitted with a complaint of diarrhea of one week and generalized weakness. 1. Gastroenteritis * still having diarrhea though frequency has reduced * Does not feel as lethargic as previously. * Oral mucosa still dry. * CT abdomen showed pancolitis with thickening of terminal ileum. is post subtotal gastrectomy with anastomosis. * continue IV NS @ 150cc/hr * C diff is pending. If its negative give loperamide. * check C diff; if negative, give loperamide * stool for ova and parasites and enteric stool pathogens pending * Stool for occult blood is positive. Patient did complain of dark stools. * Will consult general surgery o/a of findings of terminal ileitis per CT scan and positive stool for occult bloo * on flagyl. She is allergic to ciprofloxacin * 2. General debility due to diarhea * treat diarrhea as under 1. * PT/OT consult * 3. ROMI likely pre-renal due to dehydration * Cr trended down to 2.74 today with IVF NS aministration. Was 4.35 on admissi on. * renal USG pending * UA showed leukocyte esterase of 100 and positive nitrite but no bacteria or white blood cells. * 4. Nonanion gap acidosis * Bicarb is 15. Anion gap is 8. Still think is due to GI losses. * will monitor for resolution with improvement in diarrhea * if it persists, will consult nephrology * 5. Hyponatremia: * resolved. Was likely due to dehydration. * * 6. Hypothyroidism: On Synthroid. 7. Diabetes mellitus: On metformin and gimepiride. Will hold this on account of diarrhea and ROMI. Insulin sliding scale. Accu-Cheks AC at bedtime. 8. Hypertension: On lisinopril. Will hold in light of severe AK. Hydralazine as needed 9. Depression: On Wellbutrin and Remeron. DVT prophylaxis: SCDs GI prophylaxis: Famotidine CODE STATUS: Full code Patient has been counseled extensively about different types of CODE STATUS including full code, DNR CCA and DNR CCA. Patient elects for full code. Total muyr-mj-qaer time was 17 minutes. Code Visit Inpatient E&M: [id number] [facility] Hosp L3
[2018-05-09 11:51] LABS: Bedside Glucose 139 mg/dL (70-110)
[2018-05-09 12:46] LABS: Pathologist Review Reviewed
[2018-05-09 16:31] LABS: Urine Chloride 80 mmol/L (Not Establ.)
[2018-05-09 16:38] LABS: Urine Sodium 61 mmol/L (Not Establ.)
[2018-05-09] MEDS: Insulin Lispro 100 UNIT/ML INSULN.PEN SQ ×2 (16:52→21:21)
[2018-05-09 17:00] LABS: Bedside Glucose 178 mg/dL (70-110)
[2018-05-09] MEDS: HYDROcodone Bitartrate/Apap 5/325 Tablet PO (20:09)
[2018-05-09] MEDS: Mirtazapine 15 MG Tablet PO (21:21)
[2018-05-09] MEDS: MELATONIN 10 MG TABLET PO (21:21)
[2018-05-09 21:31] LABS: Bedside Glucose 234 mg/dL (70-110)
[2018-05-10] VITALS (11 sets, daily range): BP systolic 121–138; BP diastolic 69–77; PULSE 87–99; RESP 16; TEMP 36.2–36.5; O2SAT 95–98
[2018-05-10] MEDS: Levothyroxine 25 MCG TABLET PO (05:56)
[2018-05-10] MEDS: 0.9% Normal Saline 1,000 ML 150 ML IV ×3 (05:56→22:02)
[2018-05-10 06:41] LABS: Bedside Glucose 123 mg/dL (70-110)
[2018-05-10] MEDS: Gabapentin 600 MG Tablet PO ×2 (08:16→17:16)
[2018-05-10] MEDS: HYDROcodone Bitartrate/Apap 5/325 Tablet PO ×3 (08:16→23:48)
--- NOTE | 2018-05-10 08:29 | RAD_ITS ---
STUDY: X-RAY - ABDOMEN/PELVIS REASON FOR EXAM: Female, 78 years old. Colitis TECHNIQUE: Two AP supine views of the abdomen and pelvis. COMPARISON: None. FINDINGS: Normal visualized lung bases. There is an unremarkable bowel gas pattern. There is no demonstrated free abdominal air. The visualized liver, spleen and kidneys are grossly normal in size and morphology. Normal soft tissue structures. Normal visualized osseous structures. RAD/Abdomen Single View (Portable) IMPRESSION: Normal x-ray examination of the abdomen and pelvis. Electronically Signed: Pipe Sun MD at 17:04 EST , Service support ,
--- NOTE | 2018-05-10 08:32 | PCM.CONS.GEN ---
Problem List (1) Colitis Status: Acute Reason for Consult Date of Consultation: 05/10/18 Reason for Consultation: Colitis and diarrhea History of Present Illness: The patient is a 78 year old F who reports that she has been having diarrhea for a little over a week. She says that it started when she was eating ice cream. She says she has never had issues like this in the past. She says she has no family history of inflammatory bowel disease. She says there was no gross blood in her stool. She said she was having diarrhea and weakness until last night. Her diarrhea stopped last night and she developed abdominal pain. She describes the abdominal pain is diffuse but worse in the right lower quadrant. She is not having any nausea or vomiting. 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) Hypothyroid (Chronic) Diabetes mellitus (Chronic) Allergies Benzodiazepines Allergy (Verified 05/08/18 07:51) Unknown ciprofloxacin [From Cipro] Allergy (Verified 05/08/18 07:51) Itching ciprofloxacin HCl [From Cipro] Allergy (Verified 05/08/18 07:51) Itching meperidine HCl [From Demerol] Allergy (Verified 05/08/18 07:51) Unknown lorazepam [From Ativan] Adverse Reaction (Verified 05/08/18 07:51) Other physcosis nitrofurantoin [From Macrobid] Adverse Reaction (Verified 05/08/18 07:51) Vomiting nitrofurantoin macrocrystalline [From Macrobid] Adverse Reaction (Verified 05/08/18 07:51) Vomiting Sulfa (Sulfonamide Antibiotics) Adverse Reaction (Verified 05/08/18 07:51) Vomiting Xanthines Adverse Reaction (Verified 05/08/18 07:51) Vomiting Home Medications: Ambulatory Orders Medication Instructions Recorded Cyanocobalamin [Vitamin B12] 1,000 mcg IM UD 04/11/13 Gabapentin [Neurontin] 600 mg PO BID 04/11/13 Glimepiride [Amaryl] 1 mg PO DAILY 04/11/13 Levothyroxine [Synthroid] 25 mcg PO DAILY 04/11/13 Melatonin 10 mg PO QHS 04/11/13 Metformin HCl [Glucophage] 850 mg PO BIDCM 04/11/13 Mirtazapine [Remeron] 15 mg PO QHS 04/11/13 Paroxetine HCl [Paxil] 10 mg PO DAILY 04/11/13 Cyclobenzaprine [Flexeril] 10 mg PO QHS 11/06/15 buPROPion XL [Wellbutrin Xl] 150 mg PO DAILY 11/06/15 Hydrocodone Bitart/Apap 5-325 1 - 2 tablet PO Q4H PRN PRN #12 12/14/16 [[place] 5/325] tablet Acyclovir [Zovirax] 1 applic TOPICAL 5X/DAY 05/08/18 Cholecalciferol (VIT D3) [Vitamin 2,000 unit PO DAILY 05/08/18 D] Lisinopril [Zestril] 10 mg PO BID 05/08/18 Surgical History: cholecystectomy, gastric bypass, - - herniorraphy Psychiatric History: Anxiety MOVEMAN History: No pertinent MOVEMAN history Lives: Spouse/ Significant Other Smoking Status: Former smoker Alcohol: None Drugs: None - *Family History Maternal History Items: Heart Disease Review of Systems Constitutional: Denies: Anorexia, Fever HEENT: Denies: Difficulty Swallowing Cardiovascular: Denies: Chest Pain Respiratory: Denies: Cough, Shortness of Breath Gastrointestinal: Reports: Abdominal Pain, Diarrhea. Denies: Hematemesis, Hematochezia, Nausea, Vomiting Genitourinary: Denies: Dysuria Musculoskeletal: Denies: Joint Tenderness Skin: Denies: Jaundice Neurological: Denies: Focal weakness Hematologic/ Lymphatic: Reports: Anemia Patient Problems: Active and Suspected Problems Diarrhea (Acute) Diarrhea (Acute) Weakness (Acute) Colitis (Acute) - Physical Exam General: Alert, Oriented x3, Cooperative HEENT: Atraumatic Neck: Supple Lungs: Normal air movement Cardiovascular: Regular rate, Regular Rhythm Abdomen: Soft, Non-Distended, Tender - Tender in the right lower quadrant but no guarding or rebound. Extremities: No clubbing Skin: No rashes Musculoskeletal: No Muscle Wasting Neurological: Cranial nerves II-XII grossly intact Psych/Mental Status: Normal Affect Vital Signs Temp Pulse Resp BP Pulse Ox 97.6 F L 90 16 131/69 H 98 05/10/18 07:59 05/10/18 08:05 05/10/18 07:59 05/10/18 07:59 05/10/18 07:59 Oxygen Delivery Method Room Air Weight: 126 lb Body Mass Index (BMI) 23.0 Intake and Output for Last 24 Hours 05/08/18 05/09/18 05/10/18 23:59 23:59 23:59 Intake Total 2297 / 2297 2482 / 2482 Output Total 400 / 400 Balance 1897 / 1897 2482 / 2482 Microbiology Past 72 Hours 05/08/18 08:10 Stool Occult Blood (ENOCH) - Final Stool Occult Blood Positive Laboratory Tests Past 24 Hrs 05/08/18 05/09/18 05/09/18 08:15 16:10 16:10 Diff Path Review Reviewed Ur Random Sodium Urine Potassium 8.0 Urine Chloride 80 05/09/18 16:10 Diff Path Review Ur Random Sodium 61 Urine Potassium Urine Chloride POC Glucose 05/10/18 05/09/18 05/09/18 06:38 21:17 16:50 POC Glucose 123 H 234 H 178 H 05/09/18 11:37 POC Glucose 139 H Clinical Impression(s) from Imaging Studies Abdomen CT 05/08/18 08:56 IMPRESSION: Findings suggestive of a bower colitis with thickening of the terminal ileum. The patient is status post subtotal gastrectomy with anastomosis. Electronically Signed: Terrell Jules MD at 10:38 EST Tel [phone], Service support , Renal Ultrasound 05/09/18 10:46 IMPRESSION: Increased echogenicity of the bilateral renal cortices, suggestive medical renal disease. The study is otherwise unremarkable. Electronically Signed: Kannan Mccann DO at 17:05 EST Tel [phone], Service support , Assessment/Plan All Active Problems Diarrhea (Acute) Diarrhea (Acute) Weakness (Acute) Colitis (Acute) Chronic diarrhea (Acute) Pancreatic mass (Acute) Chest pain at rest (Acute) 78-year-old female with colitis and diarrhea 1. The patient reports that she was having no pain during this episode of diarrhea. CT scan shows pancolitis with inflammation of the terminal ileum. She says that her diarrhea stopped last night but now she is having abdominal pain. I will obtain an x-ray to rule out toxic megacolon and I am waiting on labs. 2. I would recommend backing her diabetic down to clears to allow the colon to rest. 3. As long as her clinical condition does not change I will plan for colonoscopy on Saturday. 4. I explained endoscopy in detail to the patient. I explained the risks including but not limited to stroke or heart attack with anesthesia, perforation of the GI tract, bleeding, infection. I explained that any of these could necessitate further emergency surgery. The patient understands and all questions were answered sufficiently. The patient wishes to proceed with procedure. Joshua Khanna MD Pager: [facility] [address] [place] [address], [address] [place] [address] Office:
--- NOTE | 2018-05-10 08:37 | CON.PCM_ITS ---
Problem List (1) Colitis Status: Acute Reason for Consult Date of Consultation: 05/10/18 Reason for Consultation: Colitis and diarrhea History of Present Illness: The patient is a 78 year old F who reports that she has been having diarrhea for a little over a week. She says that it started when she was eating ice cream. She says she has never had issues like this in the past. She says she has no family history of inflammatory bowel disease. She says there was no gross blood in her stool. She said she was having diarrhea and weakness until last night. Her diarrhea stopped last night and she developed abdominal pain. She describes the abdominal pain is diffuse but worse in the right lower quadrant. She is not having any nausea or vomiting. 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) Hypothyroid (Chronic) Diabetes mellitus (Chronic) Allergies Benzodiazepines Allergy (Verified 05/08/18 07:51) Unknown ciprofloxacin [From Cipro] Allergy (Verified 05/08/18 07:51) Itching ciprofloxacin HCl [From Cipro] Allergy (Verified 05/08/18 07:51) Itching meperidine HCl [From Demerol] Allergy (Verified 05/08/18 07:51) Unknown lorazepam [From Ativan] Adverse Reaction (Verified 05/08/18 07:51) Other physcosis nitrofurantoin [From Macrobid] Adverse Reaction (Verified 05/08/18 07:51) Vomiting nitrofurantoin macrocrystalline [From Macrobid] Adverse Reaction (Verified 05/08/18 07:51) Vomiting Sulfa (Sulfonamide Antibiotics) Adverse Reaction (Verified 05/08/18 07:51) Vomiting Xanthines Adverse Reaction (Verified 05/08/18 07:51) Vomiting Home Medications: Ambulatory Orders Medication Instructions Recorded Cyanocobalamin [Vitamin B12] 1,000 mcg IM UD 04/11/13 Gabapentin [Neurontin] 600 mg PO BID 04/11/13 Glimepiride [Amaryl] 1 mg PO DAILY 04/11/13 Levothyroxine [Synthroid] 25 mcg PO DAILY 04/11/13 Melatonin 10 mg PO QHS 04/11/13 Metformin HCl [Glucophage] 850 mg PO BIDCM 04/11/13 Mirtazapine [Remeron] 15 mg PO QHS 04/11/13 Paroxetine HCl [Paxil] 10 mg PO DAILY 04/11/13 Cyclobenzaprine [Flexeril] 10 mg PO QHS 11/06/15 buPROPion XL [Wellbutrin Xl] 150 mg PO DAILY 11/06/15 Hydrocodone Bitart/Apap 5-325 1 - 2 tablet PO Q4H PRN PRN #12 12/14/16 [[place] 5/325] tablet Acyclovir [Zovirax] 1 applic TOPICAL 5X/DAY 05/08/18 Cholecalciferol (VIT D3) [Vitamin 2,000 unit PO DAILY 05/08/18 D] Lisinopril [Zestril] 10 mg PO BID 05/08/18 Surgical History: cholecystectomy, gastric bypass, - - herniorraphy Psychiatric History: Anxiety [employer]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 Denies: Hematemesis, Hematochezia, Nausea, Vomiting Genitourinary: Denies: Dysuria Musculoskeletal: Denies: Joint Tenderness Skin: Denies: Jaundice Neurological: Denies: Focal weakness Hematologic/ Lymphatic: Reports: Anemia Patient Problems: Active and Suspected Problems Diarrhea (Acute) Diarrhea (Acute) Weakness (Acute) Colitis (Acute) - Physical Exam General: Alert, Oriented x3, Cooperative HEENT: Atraumatic Neck: Supple Lungs: Normal air movement Cardiovascular: Regular rate, Regular Rhythm Abdomen: Soft, Non-Distended, Tender - Tender in the right lower quadrant but no guarding or rebound. Extremities: No clubbing Skin: No rashes Musculoskeletal: No Muscle Wasting Neurological: Cranial nerves II-XII grossly intact Psych/Mental Status: Normal Affect Vital Signs Temp Pulse Resp BP Pulse Ox 97.6 F L 90 16 131/69 H 98 05/10/18 07:59 05/10/18 08:05 05/10/18 07:59 05/10/18 07:59 05/10/18 07:59 Oxygen Delivery Method Room Air Weight: 126 lb Body Mass Index (BMI) 23.0 Intake and Output for Last 24 Hours 05/08/18 05/09/18 05/10/18 23:59 23:59 23:59 Intake Total 2297 / 2297 2482 / 2482 Output Total 400 / 400 Balance 1897 / 1897 2482 / 2482 Microbiology Past 72 Hours 05/08/18 08:10 Stool Occult Blood (ENOCH) - Final Stool Occult Blood Positive Laboratory Tests Past 24 Hrs 05/08/18 05/09/18 05/09/18 08:15 16:10 16:10 Diff Path Review Reviewed Ur Random Sodium Urine Potassium 8.0 Urine Chloride 80 05/09/18 16:10 Diff Path Review Ur Random Sodium 61 Urine Potassium Urine Chloride POC Glucose 05/10/18 05/09/18 05/09/18 06:38 21:17 16:50 POC Glucose 123 H 234 H 178 H 05/09/18 11:37 POC Glucose 139 H Clinical Impression(s) from Imaging Studies Abdomen CT 05/08/18 08:56 IMPRESSION: Findings suggestive of a bower colitis with thickening of the terminal ileum. The patient is status post subtotal gastrectomy with anastomosis. Electronically Signed: Terrell Jules MD at 10:38 EST Tel [phone], Service support , Renal Ultrasound 05/09/18 10:46 IMPRESSION: Increased echogenicity of the bilateral renal cortices, suggestive medical renal disease. The study is otherwise unremarkable. Electronically Signed: Kannan Mccann DO at 17:05 EST Tel [phone], Service support , Assessment/Plan All Active Problems Diarrhea (Acute) Diarrhea (Acute) Weakness (Acute) Colitis (Acute) Chronic diarrhea (Acute) Pancreatic mass (Acute) Chest pain at rest (Acute) 78-year-old female with colitis and diarrhea 1. The patient reports that she was having no pain during this episode of diarrhea. CT scan shows pancolitis with inflammation of the terminal ileum. She says that her diarrhea stopped last night but now she is having abdominal pain. I will obtain an x-ray to rule out toxic megacolon and I am waiting on labs. 2. I would recommend backing her diabetic down to clears to allow the colon to rest. 3. As long as her clinical condition does not change I will plan for colonoscopy on Saturday. 4. I explained endoscopy in detail to the patient. I explained the risks including but not limited to stroke or heart attack with anesthesia, perforation of the GI tract, bleeding, infection. I explained that any of these could necessitate further emergency surgery. The patient understands and all questions were answered sufficiently. The patient wishes to proceed with procedure. Joshua Khanan MD Pager: [facility] [address] [place] [address], [address] [place] [address] Office:
[2018-05-10 08:50] LABS: Absolute Neutrophil Count 3.9 X10^3/uL (2.0-7.7); Basophil# 0.08 X10^3/uL; Basophil% 1.1 % (0-1); Eosinophil# 0.12 X10^3/uL; Eosinophils% 1.7 % (0-5); Hematocrit 28.7 % (37-47); Hemoglobin 9.3 g/dl (12.0-15.0); Lymphocyte % 23.9 % (19-41); Mean Corp Hgb Conc 32.4 g/gl (32-36); Mean Corpuscular Hgb 30.2 pg (27.0-32.0); Mean Corpuscular Volume 93.2 fL (81-99); Mean Platelet Vol. 9.4 fl (6.2-12.0); Monocyte# 1.13 X10^3/uL; Monocyte% 15.9 % (0-10); Neutrophil # 3.87 X10^3/uL (2.7-7.7); Neutrophil % 54.6 % (47-70); Platelet Count 292 K/mm3 (150-450); RBC Distribution Width CV 13.9 % (11.6-14.6); RBC Distribution Width SD 47.2 fl (35.1-43.9); Red Blood Count 3.08 M/mm3 (4.2-5.4); White Blood Count 7.1 K/mm3 (4.4-11.0)
[2018-05-10 08:51] LABS: POSITIVE COUNT YES; POSITIVE DIFFERENTIAL NO; POSITIVE MORPHOLOGY YES
[2018-05-10 09:09] LABS: Anion Gap 7 (5-15); BUN 23 mg/dL (7-18); BUN/Creat Ratio 19.2 RATIO (10-20); Calcium,Total 7.3 mg/dL (8.5-10.1); Chloride 120 mmol/L (98-107); EST Glomerular Filtration Rate 46 mL/min (>60); Est Glom Filt Rate - Afr Amer 56 mL/min (>60); Estimated Creatinine Clearance 30.56 ml/min; Glucose 129 mg/dL (74-106); Potassium 3.8 mmol/L (3.5-5.1); Sodium Level 144 mmol/L (136-145)
[2018-05-10] MEDS: 0.9% NaCl Peripheral Flush Adult/Peds IV (10:10)
[2018-05-10] MEDS: buPROPion (XL) 150 MG TABLET.XL PO (10:10)
[2018-05-10] MEDS: PARoxetine 10 MG Tablet PO (10:11)
--- NOTE | 2018-05-10 11:14 | PCM.PN.HOSP ---
Patient Problems: Active and Suspected Problems Diarrhea (Acute) Diarrhea (Acute) Weakness (Acute) Colitis (Acute) Subjective: Patient seen and examined. Her diarrhea has resolved but she is now having right lower quadrant pain started yesterday. Pain is pretty decent with no aggravating or relieving factors. She denies any fever chills, no chest pain or shortness of breath or vomiting. No single any bleeding per rectum. Labs and vitals reviewed. General surgery on board and is planning for colonoscopy on Saturday and she is now on clear liquid diet to help with bowel rest. Vitals/I&O's: Vital Signs Temp Pulse Resp BP Pulse Ox 97.6 F L 88 16 131/69 H 98 05/10/18 07:59 05/10/18 10:00 05/10/18 07:59 05/10/18 07:59 05/10/18 07:59 Oxygen Delivery Method Room Air Weight: 126 lb Body Mass Index (BMI) 23.0 Intake and Output for Last 24 Hours 05/08/18 05/09/18 05/10/18 23:59 23:59 23:59 Intake Total 2297 / 2297 2482 / 2482 Output Total 400 / 400 Balance 1897 / 1897 2482 / 2482 General: Alert, Oriented x3, Cooperative, No apparent distress HEENT: Atraumatic, PERRLA, EOMI, Normocephalic Oral: Moist Mucosa Neck: Supple, No JVD, Negative Carotid Bruits Lungs: Clear to auscultation, Normal air movement, No rhonchi, No wheeze, No rales Cardiovascular: Regular rate, Regular Rhythm, Normal S1, Normal S2, No murmurs Abdomen: Bowel Sounds Present, Soft, Non-Distended, No Hepato-splenomegaly, - - mild right lower quadrant tenderness, with no guarding or rebound tenderness. Extremities: No clubbing, No cyanosis, No edema, Capillary Refill Less than 3 Seconds Skin: No rashes, No breakdown Musculoskeletal: No Tenderness to Palpation of Joints or Extremities Lymphatic: No Cervical, Supraclavicular, or Inguinal Adenopathy Neurological: Cranial nerves II-XII grossly intact, Neuro grossly intact, Motor Exam 5/5 strength throughout Psych/Mental Status: Normal Affect, Appropriate, Alert and oriented to time, place, person, mood and affect Microbiology Past 72 Hours 05/08/18 08:10 Stool Stool Occult Blood (ENOCH) - Final Occult Blood Positive Laboratory Results 05/08/18 08:15: Diff Path Review Reviewed 05/09/18 11:37: POC Glucose 139 H 05/09/18 16:10: Urine Chloride 80 05/09/18 16:10: Urine Potassium 8.0 05/09/18 16:10: Ur Random Sodium 61 05/09/18 16:50: POC Glucose 178 H 05/09/18 21:17: POC Glucose 234 H 05/10/18 06:38: POC Glucose 123 H 05/10/18 08:17: WBC 7.1, RBC 3.08 L, Hgb 9.3 L, Hct 28.7 L, MCV 93.2, MCH 30.2, MCHC 32.4, RDW 13.9, RDW Differential 47.2 H, Plt Count 292, MPV 9.4, Immature Gran % (Auto) 2.800 H, Neut % (Auto) 54.6, Lymph % (Auto) 23.9, [place] % (Auto) 15.9 H, Eos % (Auto) 1.7, Baso % (Auto) 1.1 H, Absolute Neuts (auto) 3.9, Absolute Lymphs (auto) 1.70, Total Counted Not Reportable, Diff Path Review May 05/10/18 08:17: Sodium 144, Potassium 3.8, Chloride 120 H, Carbon Dioxide 17.0 L, Anion Gap 7, BUN 23 H, Creatinine 1.20 H, Estim Creat Clear Calc 30.56, Est GFR (MDRD) Af Amer 56 L, Est GFR (MDRD) Non-Af 46 L, BUN/Creatinine Ratio 19.2, Glucose 129 H, Calcium 7.3 L Diagnostic Data Abdomen CT 05/08/18 08:56 IMPRESSION: Findings suggestive of a bower colitis with thickening of the terminal ileum. The patient is status post subtotal gastrectomy with anastomosis. Electronically Signed: Terrell Jules MD at 10:38 EST Tel [phone], Service support , Renal Ultrasound 05/09/18 10:46 IMPRESSION: Increased echogenicity of the bilateral renal cortices, suggestive medical renal disease. The study is otherwise unremarkable. Electronically Signed: Kannan Mccann DO at 17:05 EST Tel [phone], Service support , Current Medications Hydrocodone Bitart/Acetaminophen ([place] 5mg-325mg) 1 tablet PO Q4H PRN PRN PRN Reason: PAIN Last Admin: 05/10/18 08:16 Dose: 1 tablet Bupropion HCl (Wellbutrin Xl) 150 mg PO DAILY [facility] Last Admin: 05/10/18 10:10 Dose: 150 mg Cholecalciferol (Vitamin D) 2,000 unit PO DAILY [facility] Last Admin: 05/10/18 10:11 Dose: 2,000 unit Cyclobenzaprine HCl (Flexeril) 10 mg PO QHS [facility] Last Admin: 05/09/18 21:21 Dose: 10 mg Dextrose (D50w Syringe) 0 gm IV X1 PRN; Protocol PRN Reason: Hypoglycemia Gabapentin (Neurontin) 600 mg PO BIDCM [facility] Last Admin: 05/10/18 08:16 Dose: 600 mg Glucagon () 1 mg IM .X1 PRN PRN Reason: Hypoglycemia Sodium Chloride () 1,000 mls @ 150 mls/hr IV .Q6H40M [facility] Last Admin: 05/10/18 05:56 Dose: 150 mls/hr Metronidazole (Flagyl) 500 mg in 100 mls @ 100 mls/hr IV Q8 [facility] Last Admin: 05/10/18 05:56 Dose: 100 mls/hr Insulin Human Lispro (Humalog Kwikpen (Bkc)) 0 unit SQ ACHS [facility]; Protocol Last Admin: 05/10/18 06:42 Dose: Not Given Levothyroxine Sodium (Synthroid) 25 mcg PO DAILY@0600 [facility] Last Admin: 05/10/18 05:56 Dose: 25 mcg Melatonin (Melatonin) 10 mg PO QHS [facility] Last Admin: 05/09/18 21:21 Dose: 10 mg Mirtazapine (Remeron) 15 mg PO QHS [facility] Last Admin: 05/09/18 21:21 Dose: 15 mg Paroxetine HCl (Paxil) 10 mg PO DAILY [facility] Last Admin: 05/10/18 10:11 Dose: 10 mg Sodium Chloride () 5 - 30 ml IV UD PRN PRN Reason: SALINE FLUSH Last Admin: 05/10/18 10:10 Dose: 10 ml Medical Necessity - Tobacco Use Smoking Status: Former smoker Assessment/Plan All Active Problems Diarrhea (Acute) Diarrhea (Acute) Weakness (Acute) Colitis (Acute) Chronic diarrhea (Acute) Pancreatic mass (Acute) Chest pain at rest (Acute) 78-year-old female admitted with a complaint of diarrhea of one week and generalized weakness. 1. Gastroenteritis Diarrhea has resolved. She is now having right lower pain. Stool for enteric pathogen and C. difficile was not done because diarrhea resolved. On IV fluids. General surgery on board. Planning for Colonoscopy on Saturday. KUB ordered to assess for megacolon since diarrhea resolved spontaneously. on IV Flagyl. 2. General debility due to gastroenteritis treat diarrhea as under 1. PT/OT consult 3. ROMI likely pre-renal due to dehydration Creatinine trended down from 4.35 admission to 1.20 with initiation of IV fluids. Renal ultrasound showed mild bilateral echogenicity indicating of medical renal disease. We will continue to monitor. 4. Nonanion gap acidosis Bicarb is 17 today. Anion gap is 7. urine anion gap is -11, indicating a GI cause; and is likely due to diarrhea. will monitor for resolution 5. Hyponatremia: resolved. 6. Hypothyroidism: On Synthroid. 7. Diabetes mellitus: On metformin and gimepiride. Will hold this on account of diarrhea and ROIM. Insulin sliding scale. Accu-Cheks AC at bedtime. 8. Hypertension: Lisinopril on hold on account of severe AK I. As needed hydralazine. 9. Depression: On Wellbutrin and Remeron. DVT prophylaxis: SCDs GI prophylaxis: Famotidine CODE STATUS: Full code Code Visit Inpatient E&M: 35297 Subs Hosp L3
--- NOTE | 2018-05-10 11:23 | PN_ITS ---
Patient Problems: Active and Suspected Problems Diarrhea (Acute) Diarrhea (Acute) Weakness (Acute) Colitis (Acute) Subjective: Patient seen and examined. Her diarrhea has resolved but she is now having right lower quadrant pain started yesterday. Pain is pretty decent with no aggravating or relieving factors. She denies any fever chills, no chest pain or shortness of breath or vomiting. No single any bleeding per rectum. Labs and vitals reviewed. General surgery on board and is planning for colonoscopy on Saturday and she is now on clear liquid diet to help with bowel rest. Vitals/I&O's: Vital Signs Temp Pulse Resp BP Pulse Ox 97.6 F L 88 16 131/69 H 98 05/10/18 07:59 05/10/18 10:00 05/10/18 07:59 05/10/18 07:59 05/10/18 07:59 Oxygen Delivery Method Room Air Weight: 126 lb Body Mass Index (BMI) 23.0 Intake and Output for Last 24 Hours 05/08/18 05/09/18 05/10/18 23:59 23:59 23:59 Intake Total 2297 / 2297 2482 / 2482 Output Total 400 / 400 Balance 1897 / 1897 2482 / 2482 General: Alert, Oriented x3, Cooperative, No apparent distress HEENT: Atraumatic, PERRLA, EOMI, Normocephalic Oral: Moist Mucosa Neck: Supple, No JVD, Negative Carotid Bruits Lungs: Clear to auscultation, Normal air movement, No rhonchi, No wheeze, No rales Cardiovascular: Regular rate, Regular Rhythm, Normal S1, Normal S2, No murmurs Abdomen: Bowel Sounds Present, Soft, Non-Distended, No Hepato-splenomegaly, - - mild right lower quadrant tenderness, with no guarding or rebound tenderness. Extremities: No clubbing, No cyanosis, No edema, Capillary Refill Less than 3 Seconds Skin: No rashes, No breakdown Musculoskeletal: No Tenderness to Palpation of Joints or Extremities Lymphatic: No Cervical, Supraclavicular, or Inguinal Adenopathy Neurological: Cranial nerves II-XII grossly intact, Neuro grossly intact, Motor Exam 5/5 strength throughout Psych/Mental Status: Normal Affect, Appropriate, Alert and oriented to time, place, person, mood and affect Microbiology Past 72 Hours 05/08/18 08:10 Stool Stool Occult Blood (ENOCH) - Final Occult Blood Positive Laboratory Results 05/08/18 08:15: Diff Path Review Reviewed 05/09/18 11:37: POC Glucose 139 H 05/09/18 16:10: Urine Chloride 80 05/09/18 16:10: Urine Potassium 8.0 05/09/18 16:10: Ur Random Sodium 61 05/09/18 16:50: POC Glucose 178 H 05/09/18 21:17: POC Glucose 234 H 05/10/18 06:38: POC Glucose 123 H 05/10/18 08:17: WBC 7.1, RBC 3.08 L, Hgb 9.3 L, Hct 28.7 L, MCV 93.2, MCH 30.2, MCHC 32.4, RDW 13.9, RDW Differential 47.2 H, Plt Count 292, MPV 9.4, Immature Gran % (Auto) 2.800 H, Neut % (Auto) 54.6, Lymph % (Auto) 23.9, [place] % (Auto) 15.9 H, Eos % (Auto) 1.7, Baso % (Auto) 1.1 H, Absolute Neuts (auto) 3.9, Absolute Lymphs (auto) 1.70, Total Counted Not Reportable, Diff Path Review May 05/10/18 08:17: Sodium 144, Potassium 3.8, Chloride 120 H, Carbon Dioxide 17.0 L , Anion Gap 7, BUN 23 H, Creatinine 1.20 H, Estim Creat Clear Calc 30.56, Est GFR (MDRD) Af Amer 56 L, Est GFR (MDRD) Non-Af 46 L, BUN/Creatinine Ratio 19.2, Glucose 129 H, Calcium 7.3 L Diagnostic Data Abdomen CT 05/08/18 08:56 IMPRESSION: Findings suggestive of a bower colitis with thickening of the terminal ileum. The patient is status post subtotal gastrectomy with anastomosis. Electronically Signed: Terrell Jules MD at 10:38 EST Tel [phone], Service support , Renal Ultrasound 05/09/18 10:46 IMPRESSION: Increased echogenicity of the bilateral renal cortices, suggestive medical renal disease. The study is otherwise unremarkable. Electronically Signed: Kannan Mccann DO at 17:05 EST Tel [phone], Service support , Current Medications Hydrocodone Bitart/Acetaminophen ([place] 5mg-325mg) 1 tablet PO Q4H PRN PRN PRN Reason: PAIN Last Admin: 05/10/18 08:16 Dose: 1 tablet Bupropion HCl (Wellbutrin Xl) 150 mg PO DAILY [facility] Last Admin: 05/10/18 10:10 Dose: 150 mg Cholecalciferol (Vitamin D) 2,000 unit PO DAILY [facility] Last Admin: 05/10/18 10:11 Dose: 2,000 unit Cyclobenzaprine HCl (Flexeril) 10 mg PO QHS [facility] Last Admin: 05/09/18 21:21 Dose: 10 mg Dextrose (D50w Syringe) 0 gm IV X1 PRN; Protocol PRN Reason: Hypoglycemia Gabapentin (Neurontin) 600 mg PO BIDCM [facility] Last Admin: 05/10/18 08:16 Dose: 600 mg Glucagon () 1 mg IM .X1 PRN PRN Reason: Hypoglycemia Sodium Chloride () 1,000 mls @ 150 mls/hr IV .Q6H40M [facility] Last Admin: 05/10/18 05:56 Dose: 150 mls/hr Metronidazole (Flagyl) 500 mg in 100 mls @ 100 mls/hr IV Q8 [facility] Last Admin: 05/10/18 05:56 Dose: 100 mls/hr Insulin Human Lispro (Humalog Kwikpen (Bkc)) 0 unit SQ ACHS [facility]; Protocol Last Admin: 05/10/18 06:42 Dose: Not Given Levothyroxine Sodium (Synthroid) 25 mcg PO DAILY@0600 [facility] Last Admin: 05/10/18 05:56 Dose: 25 mcg Melatonin (Melatonin) 10 mg PO QHS [facility] Last Admin: 05/09/18 21:21 Dose: 10 mg Mirtazapine (Remeron) 15 mg PO QHS [facility] Last Admin: 05/09/18 21:21 Dose: 15 mg Paroxetine HCl (Paxil) 10 mg PO DAILY [facility] Last Admin: 05/10/18 10:11 Dose: 10 mg Sodium Chloride () 5 - 30 ml IV UD PRN PRN Reason: SALINE FLUSH Last Admin: 05/10/18 10:10 Dose: 10 ml Medical Necessity - Tobacco Use Smoking Status: Former smoker Assessment/Plan All Active Problems Diarrhea (Acute) Diarrhea (Acute) Weakness (Acute) Colitis (Acute) Chronic diarrhea (Acute) Pancreatic mass (Acute) Chest pain at rest (Acute) 78-year-old female admitted with a complaint of diarrhea of one week and generalized weakness. 1. Gastroenteritis * Diarrhea has resolved. She is now having right lower pain. * Stool for enteric pathogen and C. difficile was not done because diarrhea resolved. * On IV fluids. General surgery on board. Planning for * Colonoscopy on Saturday. * KUB ordered to assess for megacolon since diarrhea resolved spontaneously. * on IV Flagyl. * 2. General debility due to gastroenteritis * treat diarrhea as under 1. * PT/OT consult * 3. ROMI likely pre-renal due to dehydration * Creatinine trended down from 4.35 admission to 1.20 with initiation of IV fluids. * Renal ultrasound showed mild bilateral echogenicity indicating of medical renal disease. * We will continue to monitor. * 4. Nonanion gap acidosis * Bicarb is 17 today. Anion gap is 7. * urine anion gap is -11, indicating a GI cause; and is likely due to diarrhea. * will monitor for resolution * 5. Hyponatremia: * resolved. * * 6. Hypothyroidism: On Synthroid. 7. Diabetes mellitus: On metformin and gimepiride. Will hold this on account of diarrhea and ROMI. Insulin sliding scale. Accu-Cheks AC at bedtime. 8. Hypertension: Lisinopril on hold on account of severe [place] I. As needed hydralazine. 9. Depression: On Wellbutrin and Remeron. DVT prophylaxis: SCDs GI prophylaxis: Famotidine CODE STATUS: Full code Code Visit Inpatient E&M: 89475 Subs Hosp L3
[2018-05-10] MEDS: Insulin Lispro 100 UNIT/ML INSULN.PEN SQ ×3 (11:46→22:01)
[2018-05-10 12:10] LABS: Bedside Glucose 156 mg/dL (70-110)
[2018-05-10 16:46] LABS: Bedside Glucose 171 mg/dL (70-110)
[2018-05-10] MEDS: MELATONIN 10 MG TABLET PO (21:59)
[2018-05-10] MEDS: Mirtazapine 15 MG Tablet PO (22:00)
[2018-05-10 23:56] LABS: Bedside Glucose 174 mg/dL (70-110)
[2018-05-11 02:43] VITALS: PULSE 90
[2018-05-11 03:30] VITALS: BP 147/72; PULSE 92; RESP 16; TEMP 36.4; O2SAT 96
[2018-05-11] MEDS: HYDROcodone Bitartrate/Apap 5/325 Tablet PO ×2 (05:46→12:06)
[2018-05-11] MEDS: 0.9% Normal Saline 1,000 ML 150 ML IV (05:47)
[2018-05-11] MEDS: Levothyroxine 25 MCG TABLET PO (06:18)
[2018-05-11 06:56] LABS: Bedside Glucose 137 mg/dL (70-110)
[2018-05-11 07:08] LABS: Anion Gap 8 (5-15); BUN 9 mg/dL (7-18); BUN/Creat Ratio 10.5 RATIO (10-20); Calcium,Total 7.4 mg/dL (8.5-10.1); Chloride 119 mmol/L (98-107); Creatinine, Serum 0.86 mg/dL (0.55-1.02); EST Glomerular Filtration Rate 68 mL/min (>60); Est Glom Filt Rate - Afr Amer 82 mL/min (>60); Estimated Creatinine Clearance 42.64 ml/min; Glucose 147 mg/dL (74-106); Potassium 3.8 mmol/L (3.5-5.1); Sodium Level 145 mmol/L (136-145)
[2018-05-11 07:14] LABS: Hematocrit 31.1 % (37-47); Hemoglobin 10.1 g/dl (12.0-15.0); Mean Corp Hgb Conc 32.5 g/gl (32-36); Mean Corpuscular Hgb 30.3 pg (27.0-32.0); Mean Corpuscular Volume 93.4 fL (81-99); Mean Platelet Vol. 9.6 fl (6.2-12.0); Platelet Count 315 K/mm3 (150-450); RBC Distribution Width SD 47.7 fl (35.1-43.9); Red Blood Count 3.33 M/mm3 (4.2-5.4); White Blood Count 7.8 K/mm3 (4.4-11.0)
[2018-05-11 07:19] LABS: POSITIVE COUNT YES; POSITIVE DIFFERENTIAL NO; POSITIVE MORPHOLOGY YES
[2018-05-11 07:20] LABS: Differential Indicated MANUAL DIFF
[2018-05-11 07:49] LABS: Basophil 1 % (0-1); Eosinophil 1 % (0-5); Lymphocyte 29 % (19-41); Metamyelocyte 5 % (0-1); Monocyte 3 % (0-10); Myelocyte 3 (0-0); Neutrophil-Band 2 % (0-5); Neutrophil-Segmented 56 % (47-70); Total Cells Counted 100 (MANUAL DIFF)
[2018-05-11 07:50] LABS: Absolute Neutrophil Count 4.5 X10^3/uL (2.0-7.7); Platelet Estimate ADEQUATE (ADEQ); Red Cell Morphology NORM C+C NORMAL (NORM C&C)
[2018-05-11 08:00] VITALS: PULSE 97
[2018-05-11] MEDS: Gabapentin 600 MG Tablet PO ×2 (09:20→16:50)
[2018-05-11] MEDS: buPROPion (XL) 150 MG TABLET.XL PO (09:20)
[2018-05-11] MEDS: PARoxetine 10 MG Tablet PO (09:20)
[2018-05-11 09:22] VITALS: BP 156/86; PULSE 90; RESP 18; TEMP 36.6; O2SAT 96
[2018-05-11 09:27] VITALS: PULSE 80
--- NOTE | 2018-05-11 10:06 | PCM.PN.HOSP ---
Patient Problems: Active and Suspected Problems Diarrhea (Acute) Diarrhea (Acute) Weakness (Acute) Colitis (Acute) Subjective: Patient seen and examined. Diarrhea has stopped. She denies any fever or chills, chest pain, shortness of breath or abdominal pain. Her diabetes is resolved. This is currently a clear liquid diet it is scheduled to have colonoscopy tomorrow. Labs and vitals reviewed. Vitals/I&O's: Vital Signs Temp Pulse Resp BP Pulse Ox 97.9 F 80 18 156/86 H 96 05/11/18 09:22 05/11/18 09:27 05/11/18 09:22 05/11/18 09:22 05/11/18 09:22 Oxygen Delivery Method Room Air Weight: 126 lb 0.013 oz Body Mass Index (BMI) 23.0 Intake and Output for Last 24 Hours 05/09/18 05/10/18 05/11/18 23:59 23:59 23:59 Intake Total 2297 / 2297 4273 / 4273 2254 / 2254 Output Total 400 / 400 200 / 200 Balance 1897 / 1897 4073 / 4073 2254 / 2254 General: Alert, Oriented x3, Cooperative HEENT: Atraumatic, PERRLA, EOMI, Normocephalic Oral: Moist Mucosa Neck: Supple, No JVD, Negative Carotid Bruits Lungs: Clear to auscultation, Normal air movement, No rhonchi, No wheeze, No rales Cardiovascular: Regular rate, Regular Rhythm, Normal S1, Normal S2, No murmurs Abdomen: Bowel Sounds Present, Soft, Non Tender, Non-Distended, No Hepato-splenomegaly Extremities: No clubbing, No cyanosis, No edema, Capillary Refill Less than 3 Seconds Skin: No rashes Musculoskeletal: No Tenderness to Palpation of Joints or Extremities Lymphatic: No Cervical, Supraclavicular, or Inguinal Adenopathy Neurological: Cranial nerves II-XII grossly intact, Neuro grossly intact, Motor Exam 5/5 strength throughout Psych/Mental Status: Normal Affect, Appropriate, Alert and oriented to time, place, person, mood and affect Microbiology Past 72 Hours 05/08/18 08:10 Stool Stool Occult Blood (ENOCH) - Final Occult Blood Positive Laboratory Results 05/10/18 11:40: POC Glucose 156 H 05/10/18 16:31: POC Glucose 171 H 05/10/18 21:53: POC Glucose 174 H 05/11/18 05:54: WBC 7.8, RBC 3.33 L, Hgb 10.1 L, Hct 31.1 L, MCV 93.4, MCH 30.3, MCHC 32.5, RDW 14.0, RDW Differential 47.7 H, Plt Count 315, MPV 9.6, Neut % (Auto) Not Reportable, Absolute Neuts (auto) 4.5, Absolute Lymphs (auto) 2.20, Total Counted 100, Neutrophils % (Manual) 56, Band Neutrophils % 2, Lymphocytes % (Manual) 29, Monocytes % (Manual) 3, Eosinophils % (Manual) 1, Basophils % (Manual) 1, Metamyelocytes % 5 H, Myelocytes % 3 H, Diff Path Review October, Platelet Estimate ADEQUATE, RBC Morphology NORM C+C 05/11/18 05:54: Sodium 145, Potassium 3.8, Chloride 119 H, Carbon Dioxide 18.0 L, Anion Gap 8, BUN 9, Creatinine 0.86, Estim Creat Clear Calc 42.64, Est GFR (MDRD) Af Amer 82, Est GFR (MDRD) Non-Af 68, BUN/Creatinine Ratio 10.5, Glucose 147 H, Calcium 7.4 L 05/11/18 06:15: POC Glucose 137 H Current Medications Hydrocodone Bitart/Acetaminophen ([place] 5mg-325mg) 1 tablet PO Q4H PRN PRN PRN Reason: PAIN Last Admin: 05/11/18 05:46 Dose: 1 tablet Bupropion HCl (Wellbutrin Xl) 150 mg PO DAILY [facility] Last Admin: 05/11/18 09:20 Dose: 150 mg Cholecalciferol (Vitamin D) 2,000 unit PO DAILY [facility] Last Admin: 05/11/18 09:20 Dose: 2,000 unit Cyclobenzaprine HCl (Flexeril) 10 mg PO QHS [facility] Last Admin: 05/10/18 22:00 Dose: 10 mg Dextrose (D50w Syringe) 0 gm IV X1 PRN; Protocol PRN Reason: Hypoglycemia Gabapentin (Neurontin) 600 mg PO BIDCM [facility] Last Admin: 05/11/18 09:20 Dose: 600 mg Glucagon () 1 mg IM .X1 PRN PRN Reason: Hypoglycemia Sodium Chloride () 1,000 mls @ 150 mls/hr IV .Q6H40M [facility] Last Admin: 05/11/18 05:47 Dose: 150 mls/hr Metronidazole (Flagyl) 500 mg in 100 mls @ 100 mls/hr IV Q8 [facility] Last Admin: 05/11/18 05:47 Dose: 100 mls/hr Insulin Human Lispro (Humalog Kwikpen (Bkc)) 0 unit SQ ACHS [facility]; Protocol Last Admin: 05/11/18 06:23 Dose: Not Given Levothyroxine Sodium (Synthroid) 25 mcg PO DAILY@0600 [facility] Last Admin: 05/11/18 06:18 Dose: 25 mcg Melatonin (Melatonin) 10 mg PO QHS [facility] Last Admin: 05/10/18 21:59 Dose: 10 mg Mirtazapine (Remeron) 15 mg PO QHS [facility] Last Admin: 05/10/18 22:00 Dose: 15 mg Paroxetine HCl (Paxil) 10 mg PO DAILY [facility] Last Admin: 05/11/18 09:20 Dose: 10 mg Sodium Chloride () 5 - 30 ml IV UD PRN PRN Reason: SALINE FLUSH Last Admin: 05/10/18 10:10 Dose: 10 ml Sodium Chloride/Electrolytes (Nulytely) 2,000 ml PO X1 ONE Stop: 05/11/18 14:01 Medical Necessity - Tobacco Use Smoking Status: Former smoker Assessment/Plan All Active Problems Diarrhea (Acute) Diarrhea (Acute) Weakness (Acute) Colitis (Acute) Chronic diarrhea (Acute) Pancreatic mass (Acute) Chest pain at rest (Acute) 78-year-old female admitted with a complaint of diarrhea of one week and generalized weakness. 1. Gastroenteritis Diarrhea has resolved. abdominal painhas also resolved Stool for enteric pathogen and C. difficile was not done because diarrhea resolved. On IV fluids. General surgery on board. for colonoscopy tomorrow curently on clear liquid diet. Keep NPO past midnight. bowel prep as per general surgery KUB was normal. 2. General debility due to gastroenteritis treat diarrhea as under 1. PT/OT on board 3. ROMI likely pre-renal due to dehydration resolved. Cr down to 0.86, from 4.35 on admission. Renal ultrasound showed mild bilateral echogenicity indicating of medical renal disease. will decrease IVf and monitor 4. Nonanion gap acidosis Bicarb is 18 today. Anion gap is 8 today urine anion gap was -11, indicating a GI cause; and is likely due to diarrhea. will monitor for resolution 5. Hyponatremia: resolved. 6. Hypothyroidism: On Synthroid. 7. Diabetes mellitus: On metformin and gimepiride. These are currently on hold o/a of diarrhea and ROMI. Insulin sliding scale. Accu-Cheks AC at bedtime. 8. Hypertension: will resume lisinopril as ROMI has resolved. As needed hydralazine. 9. Depression: On Wellbutrin and Remeron. DVT prophylaxis: SCDs GI prophylaxis: Famotidine CODE STATUS: Full code Code Visit Inpatient E&M: 40656 Subs Hosp L2
--- NOTE | 2018-05-11 10:18 | PN_ITS ---
Patient Problems: Active and Suspected Problems Diarrhea (Acute) Diarrhea (Acute) Weakness (Acute) Colitis (Acute) Subjective: Patient seen and examined. Diarrhea has stopped. She denies any fever or chills, chest pain, shortness of breath or abdominal pain. Her diabetes is resolved. This is currently a clear liquid diet it is scheduled to have colonoscopy tomorrow. Labs and vitals reviewed. Vitals/I&O's: Vital Signs Temp Pulse Resp BP Pulse Ox 97.9 F 80 18 156/86 H 96 05/11/18 09:22 05/11/18 09:27 05/11/18 09:22 05/11/18 09:22 05/11/18 09:22 Oxygen Delivery Method Room Air Weight: 126 lb 0.013 oz Body Mass Index (BMI) 23.0 Intake and Output for Last 24 Hours 05/09/18 05/10/18 05/11/18 23:59 23:59 23:59 Intake Total 2297 / 2297 4273 / 4273 2254 / 2254 Output Total 400 / 400 200 / 200 Balance 1897 / 1897 4073 / 4073 2254 / 2254 General: Alert, Oriented x3, Cooperative HEENT: Atraumatic, PERRLA, EOMI, Normocephalic Oral: Moist Mucosa Neck: Supple, No JVD, Negative Carotid Bruits Lungs: Clear to auscultation, Normal air movement, No rhonchi, No wheeze, No rales Cardiovascular: Regular rate, Regular Rhythm, Normal S1, Normal S2, No murmurs Abdomen: Bowel Sounds Present, Soft, Non Tender, Non-Distended, No Hepato- splenomegaly Extremities: No clubbing, No cyanosis, No edema, Capillary Refill Less than 3 Seconds Skin: No rashes Musculoskeletal: No Tenderness to Palpation of Joints or Extremities Lymphatic: No Cervical, Supraclavicular, or Inguinal Adenopathy Neurological: Cranial nerves II-XII grossly intact, Neuro grossly intact, Motor Exam 5/5 strength throughout Psych/Mental Status: Normal Affect, Appropriate, Alert and oriented to time, place, person, mood and affect Microbiology Past 72 Hours 05/08/18 08:10 Stool Stool Occult Blood (ENOCH) - Final Occult Blood Positive Laboratory Results 05/10/18 11:40: POC Glucose 156 H 05/10/18 16:31: POC Glucose 171 H 05/10/18 21:53: POC Glucose 174 H 05/11/18 05:54: WBC 7.8, RBC 3.33 L, Hgb 10.1 L, Hct 31.1 L, MCV 93.4, MCH 30.3, MCHC 32.5, RDW 14.0, RDW Differential 47.7 H, Plt Count 315, MPV 9.6, Neut % (Auto) Not Reportable, Absolute Neuts (auto) 4.5, Absolute Lymphs (auto) 2.20, Total Counted 100, Neutrophils % (Manual) 56, Band Neutrophils % 2, Lymphocytes % (Manual) 29, Monocytes % (Manual) 3, Eosinophils % (Manual) 1, Basophils % (Manual) 1, Metamyelocytes % 5 H, Myelocytes % 3 H, Diff Path Review October, Platelet Estimate ADEQUATE, RBC Morphology NORM C+C 05/11/18 05:54: Sodium 145, Potassium 3.8, Chloride 119 H, Carbon Dioxide 18.0 L , Anion Gap 8, BUN 9, Creatinine 0.86, Estim Creat Clear Calc 42.64, Est GFR (MDRD) Af Amer 82, Est GFR (MDRD) Non-Af 68, BUN/Creatinine Ratio 10.5, Glucose 147 H, Calcium 7.4 L 05/11/18 06:15: POC Glucose 137 H Current Medications Hydrocodone Bitart/Acetaminophen ([place] 5mg-325mg) 1 tablet PO Q4H PRN PRN PRN Reason: PAIN Last Admin: 05/11/18 05:46 Dose: 1 tablet Bupropion HCl (Wellbutrin Xl) 150 mg PO DAILY [facility] Last Admin: 05/11/18 09:20 Dose: 150 mg Cholecalciferol (Vitamin D) 2,000 unit PO DAILY [facility] Last Admin: 05/11/18 09:20 Dose: 2,000 unit Cyclobenzaprine HCl (Flexeril) 10 mg PO QHS [facility] Last Admin: 05/10/18 22:00 Dose: 10 mg Dextrose (D50w Syringe) 0 gm IV X1 PRN; Protocol PRN Reason: Hypoglycemia Gabapentin (Neurontin) 600 mg PO BIDCM [facility] Last Admin: 05/11/18 09:20 Dose: 600 mg Glucagon () 1 mg IM .X1 PRN PRN Reason: Hypoglycemia Sodium Chloride () 1,000 mls @ 150 mls/hr IV .Q6H40M [facility] Last Admin: 05/11/18 05:47 Dose: 150 mls/hr Metronidazole (Flagyl) 500 mg in 100 mls @ 100 mls/hr IV Q8 [facility] Last Admin: 05/11/18 05:47 Dose: 100 mls/hr Insulin Human Lispro (Humalog Kwikpen (Bkc)) 0 unit SQ ACHS [facility]; Protocol Last Admin: 05/11/18 06:23 Dose: Not Given Levothyroxine Sodium (Synthroid) 25 mcg PO DAILY@0600 [facility] Last Admin: 05/11/18 06:18 Dose: 25 mcg Melatonin (Melatonin) 10 mg PO QHS [facility] Last Admin: 05/10/18 21:59 Dose: 10 mg Mirtazapine (Remeron) 15 mg PO QHS [facility] Last Admin: 05/10/18 22:00 Dose: 15 mg Paroxetine HCl (Paxil) 10 mg PO DAILY [facility] Last Admin: 05/11/18 09:20 Dose: 10 mg Sodium Chloride () 5 - 30 ml IV UD PRN PRN Reason: SALINE FLUSH Last Admin: 05/10/18 10:10 Dose: 10 ml Sodium Chloride/Electrolytes (Nulytely) 2,000 ml PO X1 ONE Stop: 05/11/18 14:01 Medical Necessity - Tobacco Use Smoking Status: Former smoker Assessment/Plan All Active Problems Diarrhea (Acute) Diarrhea (Acute) Weakness (Acute) Colitis (Acute) Chronic diarrhea (Acute) Pancreatic mass (Acute) Chest pain at rest (Acute) 78-year-old female admitted with a complaint of diarrhea of one week and generalized weakness. 1. Gastroenteritis * Diarrhea has resolved. abdominal painhas also resolved * Stool for enteric pathogen and C. difficile was not done because diarrhea resolved. * On IV fluids. General surgery on board. * for colonoscopy tomorrow * curently on clear liquid diet. Keep NPO past midnight. * bowel prep as per general surgery * KUB was normal. * 2. General debility due to gastroenteritis * treat diarrhea as under 1. * PT/OT on board * 3. ROMI likely pre-renal due to dehydration * resolved. Cr down to 0.86, from 4.35 on admission. * Renal ultrasound showed mild bilateral echogenicity indicating of medical renal disease. * will decrease IVf and monitor * 4. Nonanion gap acidosis * Bicarb is 18 today. Anion gap is 8 today * urine anion gap was -11, indicating a GI cause; and is likely due to diarrhea. * will monitor for resolution * 5. Hyponatremia: * resolved. * 6. Hypothyroidism: On Synthroid. 7. Diabetes mellitus: On metformin and gimepiride. These are currently on hold o/a of diarrhea and ROMI. Insulin sliding scale. Accu-Cheks AC at bedtime. 8. Hypertension: will resume lisinopril as ROMI has resolved. As needed hydralazine. 9. Depression: On Wellbutrin and Remeron. DVT prophylaxis: SCDs GI prophylaxis: Famotidine CODE STATUS: Full code Code Visit Inpatient E&M: 01640 Subs Hosp L2
[2018-05-11 11:00] LABS: Bedside Glucose 168 mg/dL (70-110)
[2018-05-11] MEDS: Lisinopril 10 MG Tablet PO ×2 (12:00→22:55)
[2018-05-11] MEDS: Insulin Lispro 100 UNIT/ML INSULN.PEN SQ ×2 (12:00→16:51)
[2018-05-11] MEDS: Electrolyte Solution/Peg's 4000 ML 2000 ML PO (14:26)
[2018-05-11] MEDS: 0.9% Normal Saline 1,000 ML 100 ML IV (14:46)
[2018-05-11 18:16] LABS: Bedside Glucose 181 mg/dL (70-110)
[2018-05-11 20:07] VITALS: BP 156/87; PULSE 92; RESP 18; TEMP 36.4; O2SAT 97
[2018-05-11] MEDS: MELATONIN 10 MG TABLET PO (22:55)
[2018-05-11] MEDS: Mirtazapine 15 MG Tablet PO (22:55)
[2018-05-11 23:26] LABS: Bedside Glucose 133 mg/dL (70-110)
[2018-05-12] VITALS (10 sets, daily range): BP systolic 124–173; BP diastolic 68–103; PULSE 76–100; RESP 16–18; TEMP 36.5–38.1; O2SAT 92–100
--- NOTE | 2018-05-12 | COLBX_PTH ---
PATIENT: SONNY DENNIS LOC: MS3 U#:[id number] AGE/SX: 78/F ROOM: PA313 RE05/08/[address]: Dr. Rosa Pond MD : [id number] BED: 1 DIS: 05/12/2018 SPEC #: [id number] RECD: 05/12/18 14:32 STATUS: TERESITA VIC #: [id number] BAUDILIO: 05/12/18 00:[address]: Rosa Pond DEPT: SURGICAL PATHOLOGY RECD BY: Cristopher Watkins ENTERED: 05/12/18 14:32 SP TYPE: COLON BX OTHR DR: MD Dr. Melissa Poe MD Tissues: A - Cecum, NOS B - COLON BIOPSY Procedures: Surgery Specimen Level IV HEADER OPERATION: Colonoscopy (MAC) PRE-OP DIAGNOSIS: Colitis TISSUE SUBMITTED: A. Cecal biopsy, B. Random colonic biopsy MICROSCOPIC DIAGNOSIS A. Cecal biopsy: Diffuse acute colitis. See microscopic description and comment. B. Random biopsy: Diffuse acute colitis. See microscopic description and comment. DIPIKA:vicki 05/13/18 COMMENT Correlation with clinical, endoscopic findings and appropriate followup are necessary. MICROSCOPIC DESCRIPTION Slides are reviewed. A & B. Both specimens show similar morphologic changes, showing fragments of colonic mucosa with diffuse acute on chronic inflammatory cell infiltrate in the lamina propria, cryptitis and crypt abscesses. Significant glandular distortion or granuloma are not seen. GROSS DESCRIPTION A. Received is one container labeled with the patient name and designated cecal biopsy. The specimen consists of two irregular fragments of light coombs soft tissue that in aggregate measure 0.5 x 0.3 x 0.1 cm. The specimen is totally submitted in one cassette. B. Received is one container labeled with the patient name and designated random colon biopsy. The specimen consists of multiple irregular fragments of light coombs soft tissue that in aggregate measure 1.5 x 0.4 x 0.1 cm. The specimen is totally submitted in one cassette. / DIPIKA:vicki 05/12/18 TC: 2 CPT: 39773 x2
[2018-05-12] MEDS: 0.9% Normal Saline 1,000 ML 100 ML IV ×2 (03:06→11:48)
[2018-05-12] MEDS: HYDROcodone Bitartrate/Apap 5/325 Tablet PO ×2 (06:06→13:49)
[2018-05-12] MEDS: Levothyroxine 25 MCG TABLET PO (06:06)
[2018-05-12 06:27] LABS: Anion Gap 11 (5-15); BUN 4 mg/dL (7-18); BUN/Creat Ratio 5.5 RATIO (10-20); Calcium,Total 7.1 mg/dL (8.5-10.1); Chloride 114 mmol/L (98-107); Creatinine, Serum 0.73 mg/dL (0.55-1.02); EST Glomerular Filtration Rate 82 mL/min (>60); Est Glom Filt Rate - Afr Amer 100 mL/min (>60); Estimated Creatinine Clearance 36.67 ml/min; Glucose 141 mg/dL (74-106); Potassium 3.1 mmol/L (3.5-5.1); Sodium Level 144 mmol/L (136-145)
[2018-05-12 06:35] LABS: Hematocrit 29.2 % (37-47); Hemoglobin 9.5 g/dl (12.0-15.0); Mean Corp Hgb Conc 32.5 g/gl (32-36); Mean Corpuscular Hgb 30.2 pg (27.0-32.0); Mean Corpuscular Volume 92.7 fL (81-99); Mean Platelet Vol. 9.4 fl (6.2-12.0); Platelet Count 326 K/mm3 (150-450); RBC Distribution Width SD 47.2 fl (35.1-43.9); Red Blood Count 3.15 M/mm3 (4.2-5.4); White Blood Count 8.1 K/mm3 (4.4-11.0)
[2018-05-12] MEDS: Insulin Lispro 100 UNIT/ML INSULN.PEN SQ ×2 (06:40→16:27)
[2018-05-12 06:41] LABS: Thyroid Stim Hormone (TSH) 2.82 uIU/mL (0.358-3.74)
[2018-05-12 06:42] LABS: Differential Indicated MANUAL DIFF; POSITIVE COUNT YES; POSITIVE DIFFERENTIAL NO; POSITIVE MORPHOLOGY YES
[2018-05-12 06:55] LABS: Bedside Glucose 153 mg/dL (70-110)
[2018-05-12 06:59] LABS: Basophil 1 % (0-1); Eosinophil 1 % (0-5); Lymphocyte 28 % (19-41); Metamyelocyte 1 % (0-1); Monocyte 8 % (0-10); Myelocyte 3 (0-0); Neutrophil-Band 2 % (0-5); Neutrophil-Segmented 56 % (47-70); Platelet Estimate ADEQUATE (ADEQ); Red Cell Morphology NORM C+C NORMAL (NORM C&C); Total Cells Counted 100 (MANUAL DIFF); Toxic Granulation 2+
[2018-05-12 07:00] LABS: Absolute Lymphocyte Count 2.24 X10^3/ul (0.83-4.51); Absolute Neutrophil Count 4.7 X10^3/uL (2.0-7.7); Lymphocyte # 2.24 X10^3/ul (4.0); Neutrophil # 4.67 X10^3/uL (2.7-7.7)
[2018-05-12] MEDS: PARoxetine 10 MG Tablet PO (09:05)
[2018-05-12] MEDS: Lisinopril 10 MG Tablet PO (09:05)
[2018-05-12] MEDS: Gabapentin 600 MG Tablet PO ×2 (09:05→16:29)
[2018-05-12] MEDS: buPROPion (XL) 150 MG TABLET.XL PO (09:05)
[2018-05-12 09:13] LABS: Hemoglobin A1c 7.3 % (4.2-6.3)
--- NOTE | 2018-05-12 10:13 | NURSING ---
left floor around 1000 for colonoscopy. called report to Мария in [facility] at this time.
--- NOTE | 2018-05-12 10:20 | PCM.PN.HOSP ---
Patient Problems: Active and Suspected Problems Diarrhea (Acute) Diarrhea (Acute) Weakness (Acute) Colitis (Acute) Subjective: Patient seen and examined. Diarrhea has stopped. She denies any fever or chills, chest pain, shortness of breath or abdominal pain. She is scheduled to have colonoscopy at 11 AM today. She did screen was negative. Labs and vitals reviewed. Vitals/I&O's: Vital Signs Temp Pulse Resp BP Pulse Ox 98.2 F 91 16 147/87 H 99 05/12/18 08:45 05/12/18 08:45 05/12/18 08:45 05/12/18 10:08 05/12/18 08:45 Oxygen Delivery Method Room Air Weight: 126 lb 0.013 oz Body Mass Index (BMI) 23.0 Intake and Output for Last 24 Hours 05/10/18 05/11/18 05/12/18 23:59 23:59 23:59 Intake Total 4273 / 4273 5900 / 5900 1600 / 1600 Output Total 200 / 200 Balance 4073 / 4073 5900 / 5900 1600 / 1600 General: Alert, Oriented x3, Cooperative, No apparent distress HEENT: Atraumatic, PERRLA, EOMI, Normocephalic Oral: Moist Mucosa Neck: Supple, No JVD, Negative Carotid Bruits Lungs: Clear to auscultation, Normal air movement, No rhonchi, No wheeze, No rales Cardiovascular: Regular rate, Regular Rhythm, Normal S1, Normal S2, No murmurs Abdomen: Bowel Sounds Present, Soft, Non Tender, Non-Distended, No Hepato-splenomegaly Extremities: No clubbing, No cyanosis, No edema, Capillary Refill Less than 3 Seconds Skin: No rashes, No breakdown Musculoskeletal: No Tenderness to Palpation of Joints or Extremities Lymphatic: No Cervical, Supraclavicular, or Inguinal Adenopathy Neurological: Cranial nerves II-XII grossly intact Psych/Mental Status: Normal Affect, Appropriate, Alert and oriented to time, place, person, mood and affect Microbiology Past 72 Hours 05/11/18 14:30 Stool Enteric Bacteriology - Final 05/11/18 14:30 Stool C. difficile DNA Amplification - Final 05/11/18 14:30 Stool Stool Occult Blood (ENOCH) - Final Occult Blood Positive Laboratory Results 05/11/18 10:52: POC Glucose 168 H 05/11/18 16:47: POC Glucose 181 H 05/11/18 22:53: POC Glucose 133 H 05/12/18 05:30: WBC 8.1, RBC 3.15 L, Hgb 9.5 L, Hct 29.2 L, MCV 92.7, MCH 30.2, MCHC 32.5, RDW 14.0, RDW Differential 47.2 H, Plt Count 326, MPV 9.4, Neut % (Auto) Not Reportable, Absolute Neuts (auto) 4.7, Absolute Lymphs (auto) 2.24, Total Counted 100, Neutrophils % (Manual) 56, Band Neutrophils % 2, Lymphocytes % (Manual) 28, Monocytes % (Manual) 8, Eosinophils % (Manual) 1, Basophils % (Manual) 1, Metamyelocytes % 1, Myelocytes % 3 H, Diff Path Review May foll, Toxic Granulation 2+, Platelet Estimate ADEQUATE, RBC Morphology NORM C+C 05/12/18 05:30: Sodium 144, Potassium 3.1 L, Chloride 114 H, Carbon Dioxide 19.0 L, Anion Gap 11, BUN 4 L, Creatinine 0.73, Estim Creat Clear Calc 36.67, Est GFR (MDRD) Af Amer 100, Est GFR (MDRD) Non-Af 82, BUN/Creatinine Ratio 5.5 L, Glucose 141 H, Calcium 7.1 L 05/12/18 05:30: TSH 2.82 05/12/18 05:30: Hemoglobin A1c 7.3 H 05/12/18 06:38: POC Glucose 153 H Current Medications Hydrocodone Bitart/Acetaminophen ([place] 5mg-325mg) 1 tablet PO Q4H PRN PRN PRN Reason: PAIN Last Admin: 05/12/18 06:06 Dose: 1 tablet Bupropion HCl (Wellbutrin Xl) 150 mg PO DAILY [facility] Last Admin: 05/12/18 09:05 Dose: 150 mg Cholecalciferol (Vitamin D) 2,000 unit PO DAILY [facility] Last Admin: 05/12/18 09:05 Dose: 2,000 unit Cyclobenzaprine HCl (Flexeril) 10 mg PO QHS [facility] Last Admin: 05/11/18 22:55 Dose: 10 mg Dextrose (D50w Syringe) 0 gm IV X1 PRN; Protocol PRN Reason: Hypoglycemia Gabapentin (Neurontin) 600 mg PO BIDCM [facility] Last Admin: 05/12/18 09:05 Dose: 600 mg Glucagon () 1 mg IM .X1 PRN PRN Reason: Hypoglycemia Metronidazole (Flagyl) 500 mg in 100 mls @ 100 mls/hr IV Q8 [facility] Last Admin: 05/12/18 06:06 Dose: 100 mls/hr Sodium Chloride () 1,000 mls @ 100 mls/hr IV .Q10H [facility] Last Admin: 05/12/18 03:06 Dose: 100 mls/hr Potassium Chloride (Kcl 10meq/100ml) 10 meq in 100 mls @ 100 mls/hr IV BOLUS Q1H [facility] Stop: 05/12/18 11:59 Last Admin: 05/12/18 09:04 Dose: 100 mls/hr Insulin Human Lispro (Humalog Kwikpen (Bkc)) 0 unit SQ ACHS [facility]; Protocol Last Admin: 05/12/18 06:40 Dose: 1 u Levothyroxine Sodium (Synthroid) 25 mcg PO DAILY@0600 [facility] Last Admin: 05/12/18 06:06 Dose: 25 mcg Lisinopril (Zestril) 10 mg PO BID [facility] Last Admin: 05/12/18 09:05 Dose: 10 mg Melatonin (Melatonin) 10 mg PO QHS [facility] Last Admin: 05/11/18 22:55 Dose: 10 mg Mirtazapine (Remeron) 15 mg PO QHS [facility] Last Admin: 05/11/18 22:55 Dose: 15 mg Paroxetine HCl (Paxil) 10 mg PO DAILY [facility] Last Admin: 05/12/18 09:05 Dose: 10 mg Sodium Chloride () 5 - 30 ml IV UD PRN PRN Reason: SALINE FLUSH Last Admin: 05/10/18 10:10 Dose: 10 ml Medical Necessity - Tobacco Use Smoking Status: Former smoker Assessment/Plan All Active Problems Diarrhea (Acute) Diarrhea (Acute) Weakness (Acute) Colitis (Acute) Chronic diarrhea (Acute) Pancreatic mass (Acute) Chest pain at rest (Acute) 78-year-old female admitted with a complaint of diarrhea of one week and generalized weakness. 1. Gastroenteritis Diarrhea has resolved. abdominal painhas also resolved C Diff screen negative for colonoscopy todayt general surgery on board 2. POsitive FOBT for colonoscopy today 3. General debility due to gastroenteritis treat diarrhea as under 1. PT/OT on board 4. ROMI likely pre-renal due to dehydration resolved. 5. Nonanion gap acidosis resolving. Bicarb is 19 today. Anion gap is 11 today urine anion gap was -11, indicating a GI cause; and is likely due to diarrhea. 6. Hypocalcemia: calcium is 7.1 Albumin has been ~ 3.4, so corrected calcium will still be low. Will replace and monitor 7. Hypokalemia: K is 3.1 today. WIll replace and monitor 8. Hyponatremia: resolved. 9. Hypothyroidism: On Synthroid. 10. Diabetes mellitus: On metformin and gimepiride. will resume after colonoscopy. Accuchecks ACHS. ISS. Accuchecks ACHS 11. Hypertension: will resume lisinopril. PRN hydralazine 12. Depression: On Wellbutrin and Remeron. DVT prophylaxis: SCDs GI prophylaxis: Famotidine CODE STATUS: Full code Code Visit Inpatient E&M: 92140 Subs Hosp L3
--- NOTE | 2018-05-12 10:27 | PN_ITS ---
Patient Problems: Active and Suspected Problems Diarrhea (Acute) Diarrhea (Acute) Weakness (Acute) Colitis (Acute) Subjective: Patient seen and examined. Diarrhea has stopped. She denies any fever or chills, chest pain, shortness of breath or abdominal pain. She is scheduled to have colonoscopy at 11 AM today. She did screen was negative. Labs and vitals reviewed. Vitals/I&O's: Vital Signs Temp Pulse Resp BP Pulse Ox 98.2 F 91 16 147/87 H 99 05/12/18 08:45 05/12/18 08:45 05/12/18 08:45 05/12/18 10:08 05/12/18 08:45 Oxygen Delivery Method Room Air Weight: 126 lb 0.013 oz Body Mass Index (BMI) 23.0 Intake and Output for Last 24 Hours 05/10/18 05/11/18 05/12/18 23:59 23:59 23:59 Intake Total 4273 / 4273 5900 / 5900 1600 / 1600 Output Total 200 / 200 Balance 4073 / 4073 5900 / 5900 1600 / 1600 General: Alert, Oriented x3, Cooperative, No apparent distress HEENT: Atraumatic, PERRLA, EOMI, Normocephalic Oral: Moist Mucosa Neck: Supple, No JVD, Negative Carotid Bruits Lungs: Clear to auscultation, Normal air movement, No rhonchi, No wheeze, No rales Cardiovascular: Regular rate, Regular Rhythm, Normal S1, Normal S2, No murmurs Abdomen: Bowel Sounds Present, Soft, Non Tender, Non-Distended, No Hepato- splenomegaly Extremities: No clubbing, No cyanosis, No edema, Capillary Refill Less than 3 Seconds Skin: No rashes, No breakdown Musculoskeletal: No Tenderness to Palpation of Joints or Extremities Lymphatic: No Cervical, Supraclavicular, or Inguinal Adenopathy Neurological: Cranial nerves II-XII grossly intact Psych/Mental Status: Normal Affect, Appropriate, Alert and oriented to time, place, person, mood and affect Microbiology Past 72 Hours 05/11/18 14:30 Stool Enteric Bacteriology - Final 05/11/18 14:30 Stool C. difficile DNA Amplification - Final 05/11/18 14:30 Stool Stool Occult Blood (ENOCH) - Final Occult Blood Positive Laboratory Results 05/11/18 10:52: POC Glucose 168 H 05/11/18 16:47: POC Glucose 181 H 05/11/18 22:53: POC Glucose 133 H 05/12/18 05:30: WBC 8.1, RBC 3.15 L, Hgb 9.5 L, Hct 29.2 L, MCV 92.7, MCH 30.2, MCHC 32.5, RDW 14.0, RDW Differential 47.2 H, Plt Count 326, MPV 9.4, Neut % (Auto) Not Reportable, Absolute Neuts (auto) 4.7, Absolute Lymphs (auto) 2.24, Total Counted 100, Neutrophils % (Manual) 56, Band Neutrophils % 2, Lymphocytes % (Manual) 28, Monocytes % (Manual) 8, Eosinophils % (Manual) 1, Basophils % (Manual) 1, Metamyelocytes % 1, Myelocytes % 3 H, Diff Path Review May foll, Toxic Granulation 2+, Platelet Estimate ADEQUATE, RBC Morphology NORM C+C 05/12/18 05:30: Sodium 144, Potassium 3.1 L, Chloride 114 H, Carbon Dioxide 19.0 L, Anion Gap 11, BUN 4 L, Creatinine 0.73, Estim Creat Clear Calc 36.67, Est GFR (MDRD) Af Amer 100, Est GFR (MDRD) Non-Af 82, BUN/Creatinine Ratio 5.5 L, Glucose 141 H, Calcium 7.1 L 05/12/18 05:30: TSH 2.82 05/12/18 05:30: Hemoglobin A1c 7.3 H 05/12/18 06:38: POC Glucose 153 H Current Medications Hydrocodone Bitart/Acetaminophen ([place] 5mg-325mg) 1 tablet PO Q4H PRN PRN PRN Reason: PAIN Last Admin: 05/12/18 06:06 Dose: 1 tablet Bupropion HCl (Wellbutrin Xl) 150 mg PO DAILY DEB Last Admin: 05/12/18 09:05 Dose: 150 mg Cholecalciferol (Vitamin D) 2,000 unit PO DAILY DEB Last Admin: 05/12/18 09:05 Dose: 2,000 unit Cyclobenzaprine HCl (Flexeril) 10 mg PO QHS DEB Last Admin: 05/11/18 22:55 Dose: 10 mg Dextrose (D50w Syringe) 0 gm IV X1 PRN; Protocol PRN Reason: Hypoglycemia Gabapentin (Neurontin) 600 mg PO BIDCM [facility] Last Admin: 05/12/18 09:05 Dose: 600 mg Glucagon () 1 mg IM .X1 PRN PRN Reason: Hypoglycemia Metronidazole (Flagyl) 500 mg in 100 mls @ 100 mls/hr IV Q8 [facility] Last Admin: 05/12/18 06:06 Dose: 100 mls/hr Sodium Chloride () 1,000 mls @ 100 mls/hr IV .Q10H [facility] Last Admin: 05/12/18 03:06 Dose: 100 mls/hr Potassium Chloride (Kcl 10meq/100ml) 10 meq in 100 mls @ 100 mls/hr IV BOLUS Q1H [facility] Stop: 05/12/18 11:59 Last Admin: 05/12/18 09:04 Dose: 100 mls/hr Insulin Human Lispro (Humalog Kwikpen (Bkc)) 0 unit SQ ACHS [facility]; Protocol Last Admin: 05/12/18 06:40 Dose: 1 u Levothyroxine Sodium (Synthroid) 25 mcg PO DAILY@0600 [facility] Last Admin: 05/12/18 06:06 Dose: 25 mcg Lisinopril (Zestril) 10 mg PO BID [facility] Last Admin: 05/12/18 09:05 Dose: 10 mg Melatonin (Melatonin) 10 mg PO QHS [facility] Last Admin: 05/11/18 22:55 Dose: 10 mg Mirtazapine (Remeron) 15 mg PO QHS [facility] Last Admin: 05/11/18 22:55 Dose: 15 mg Paroxetine HCl (Paxil) 10 mg PO DAILY [facility] Last Admin: 05/12/18 09:05 Dose: 10 mg Sodium Chloride () 5 - 30 ml IV UD PRN PRN Reason: SALINE FLUSH Last Admin: 05/10/18 10:10 Dose: 10 ml Medical Necessity - Tobacco Use Smoking Status: Former smoker Assessment/Plan All Active Problems Diarrhea (Acute) Diarrhea (Acute) Weakness (Acute) Colitis (Acute) Chronic diarrhea (Acute) Pancreatic mass (Acute) Chest pain at rest (Acute) 78-year-old female admitted with a complaint of diarrhea of one week and generalized weakness. 1. Gastroenteritis * Diarrhea has resolved. abdominal painhas also resolved * C Diff screen negative * for colonoscopy todayt * general surgery on board * * 2. POsitive FOBT * for colonoscopy today * 3. General debility due to gastroenteritis * treat diarrhea as under 1. * PT/OT on board * 4. ROMI likely pre-renal due to dehydration * resolved. * 5. Nonanion gap acidosis * resolving. Bicarb is 19 today. Anion gap is 11 today * urine anion gap was -11, indicating a GI cause; and is likely due to diarrhea. * 6. Hypocalcemia: calcium is 7.1 Albumin has been ~ 3.4, so corrected calcium will still be low. Will replace and monitor 7. Hypokalemia: K is 3.1 today. WIll replace and monitor 8. Hyponatremia: * resolved. * 9. Hypothyroidism: On Synthroid. 10. Diabetes mellitus: On metformin and gimepiride. will resume after colonoscopy. Accuchecks ACHS. ISS. Accuchecks ACHS 11. Hypertension: will resume lisinopril. PRN hydralazine 12. Depression: On Wellbutrin and Remeron. DVT prophylaxis: SCDs GI prophylaxis: Famotidine CODE STATUS: Full code Code Visit Inpatient E&M: 90142 Subs Hosp L3
--- NOTE | 2018-05-12 11:32 | PCM.PN.BLA ---
Progress Note Colon looked essentially normal on colonoscopy, mild colitis. Random biopsies of colon performed. OK to resume clears and advance as tolerated. Discharge home when tolerating diet.
--- NOTE | 2018-05-12 11:40 | OP.ENDO_ITS ---
Patient Name: Giselle Pickett Procedure Date: 05/12/2018 10:49 AM Date of : 1940 Age: 78 Procedure: Colonoscopy Indications: Suspected colitis Providers: Joshua Khanna MD Medicines: Monitored Anesthesia Care Patient Profile: This is a 78 year old female. Refer to note in patient chart for documentation of history and physical. Last Colonoscopy: 5 years ago. Complications: No immediate complications. Estimated blood loss: Minimal. Procedure: Pre-Anesthesia Assessment: - Prior to the procedure, a History and Physical was performed, and patient medications and allergies were reviewed. The patient's tolerance of previous anesthesia was also reviewed. The risks and benefits of the procedure and the sedation options and risks were discussed with the patient. All questions were answered, and informed consent was obtained. Prior Anticoagulants: The patient has taken Lovenox (enoxaparin), last dose was 1 day prior to procedure. After reviewing the risks and benefits, the patient was deemed in satisfactory condition to undergo the procedure. After I obtained informed consent, the scope was passed under direct vision. Throughout the procedure, the patient's blood pressure, pulse, and oxygen saturations were monitored continuously. The colonoscope was introduced through the anus and advanced to the cecum, identified by appendiceal orifice and ileocecal valve. The colonoscopy was performed without difficulty. The patient tolerated the procedure well. The quality of the bowel preparation was good. Scope In: 11:06:16 AM Scope Withdrawal Time 0 hours 19 minutes 7 seconds Scope Out: 11:30:10 AM Total Procedure Duration Time 0 hours 23 minutes 54 seconds Findings: I was unable to intubate terminal ileum due to patient anatomy. Ileocecal valve appeared normal. No bleeding. There was mild inflammation of mucosa. This was patch and diffuse. One biopsy was taken every 10 cm with a cold forceps from the entire colon for evaluation of microscopic colitis. These biopsy specimens were sent to Pathology. The exam was otherwise without abnormality on direct and retroflexion views. Impression: - Erythematous mucosa. Biopsied. - The examination was otherwise normal on direct and retroflexion views. Recommendation: - Return patient to hospital [facility] for observation. - Advance diet as tolerated. - Continue present medications. - Physician's office will call you with pathology results and recommendations for when to repeat colonoscopy. - Repeat colonoscopy is recommended. The colonoscopy date will be determined after pathology results from today's exam become available for review. Procedure Code(s): --- Professional --- 39637, Colonoscopy, flexible; with biopsy, single or multiple Diagnosis Code(s): --- Professional --- K63.89, Other specified diseases of intestine CPT copyright 2017 [employer]. All rights reserved. The codes documented in this report are preliminary and upon yarding supervisor review may be revised to meet current compliance requirements. Joshua Khanna MD 05/12/2018 11:39:35 AM This report has been signed electronically. Number of Addenda: 0 Note Initiated On: 05/12/2018 10:49 AM
[2018-05-12 12:41] LABS: Bedside Glucose 129 mg/dL (70-110)
[2018-05-12 14:05] LABS: Pathologist Review Reviewed
[2018-05-12 14:10] LABS: Pathologist Review Reviewed
[2018-05-12 14:12] LABS: Pathologist Review Reviewed
[2018-05-12 16:35] LABS: Bedside Glucose 292 mg/dL (70-110)
--- NOTE | 2018-05-12 18:29 | PCM.DC ---
- Discharge Diagnoses Current Active Problems: Current Active and Chronic Problems Diarrhea (Acute) Diarrhea (Acute) Weakness (Acute) Colitis (Acute) You will use the following diet at home:: No restrictions - Advance as tolerated Discharge Activity: Return to Normal Activity Call your doctor if you observe: Fever of 101 or Higher, Shortness of breath, Dizziness, Fainting spells Allergies/Adverse Reactions: Allergies Benzodiazepines Allergy (Verified 05/08/18 07:51) Unknown ciprofloxacin [From Cipro] Allergy (Verified 05/08/18 07:51) Itching ciprofloxacin HCl [From Cipro] Allergy (Verified 05/08/18 07:51) Itching meperidine HCl [From Demerol] Allergy (Verified 05/08/18 07:51) Unknown lorazepam [From Ativan] Adverse Reaction (Verified 05/08/18 07:51) Other physcosis nitrofurantoin [From Macrobid] Adverse Reaction (Verified 05/08/18 07:51) Vomiting nitrofurantoin macrocrystalline [From Macrobid] Adverse Reaction (Verified 05/08/18 07:51) Vomiting Sulfa (Sulfonamide Antibiotics) Adverse Reaction (Verified 05/08/18 07:51) Vomiting Xanthines Adverse Reaction (Verified 05/08/18 07:51) Vomiting Medications to take at Discharge Cyanocobalamin [Vitamin B12] 1,000 mcg IM UD 04/11/13 Gabapentin [Neurontin] 600 mg PO BID 04/11/13 Glimepiride [Amaryl] 1 mg PO DAILY 04/11/13 Levothyroxine [Synthroid] 25 mcg PO DAILY 04/11/13 Melatonin 10 mg PO QHS 04/11/13 Metformin HCl [Glucophage] 850 mg PO BIDCM 04/11/13 Mirtazapine [Remeron] 15 mg PO QHS 04/11/13 Paroxetine HCl [Paxil] 10 mg PO DAILY 04/11/13 Cyclobenzaprine [Flexeril] 10 mg PO QHS 11/06/15 buPROPion XL [Wellbutrin Xl] 150 mg PO DAILY 11/06/15 Hydrocodone Bitart/Apap 5-325 [[place] 5/325] 1 - 2 tablet PO Q4H PRN PRN #12 tablet 12/14/16 Acyclovir [Zovirax] 1 applic TOPICAL 5X/DAY 05/08/18 Cholecalciferol (VIT D3) [Vitamin D3] 2,000 unit PO DAILY 05/08/18 Lisinopril [Zestril] 10 mg PO BID 05/08/18 Primary Care Physician: Melissa Montes MD [Primary Care Provider] - Please follow up with your Primary Care Physician in: 1 Week Test Results: Test results from this visit will be discussed in further detail at your follow-up appointment, if applicable. Please Follow Up With: Joshua Khanna MD When: Call for follow up Proposed Discharge Date: 05/12/18
--- NOTE | 2018-05-12 18:34 | DCINST_ITS ---
- Discharge Diagnoses Current Active Problems: Current Active and Chronic Problems Diarrhea (Acute) Diarrhea (Acute) Weakness (Acute) Colitis (Acute) You will use the following diet at home:: No restrictions - Advance as tolerated Discharge Activity: Return to Normal Activity Call your doctor if you observe: Fever of 101 or Higher, Shortness of breath, Dizziness, Fainting spells Allergies/Adverse Reactions: Allergies Benzodiazepines Allergy (Verified 05/08/18 07:51) Unknown ciprofloxacin [From Cipro] Allergy (Verified 05/08/18 07:51) Itching ciprofloxacin HCl [From Cipro] Allergy (Verified 05/08/18 07:51) Itching meperidine HCl [From Demerol] Allergy (Verified 05/08/18 07:51) Unknown lorazepam [From Ativan] Adverse Reaction (Verified 05/08/18 07:51) Other physcosis nitrofurantoin [From Macrobid] Adverse Reaction (Verified 05/08/18 07:51) Vomiting nitrofurantoin macrocrystalline [From Macrobid] Adverse Reaction (Verified 05/08/18 07:51) Vomiting Sulfa (Sulfonamide Antibiotics) Adverse Reaction (Verified 05/08/18 07:51) Vomiting Xanthines Adverse Reaction (Verified 05/08/18 07:51) Vomiting Medications to take at Discharge Cyanocobalamin [Vitamin B12] 1,000 mcg IM UD 04/11/13 Gabapentin [Neurontin] 600 mg PO BID 04/11/13 Glimepiride [Amaryl] 1 mg PO DAILY 04/11/13 Levothyroxine [Synthroid] 25 mcg PO DAILY 04/11/13 Melatonin 10 mg PO QHS 04/11/13 Metformin HCl [Glucophage] 850 mg PO BIDCM 04/11/13 Mirtazapine [Remeron] 15 mg PO QHS 04/11/13 Paroxetine HCl [Paxil] 10 mg PO DAILY 04/11/13 Cyclobenzaprine [Flexeril] 10 mg PO QHS 11/06/15 buPROPion XL [Wellbutrin Xl] 150 mg PO DAILY 11/06/15 Hydrocodone Bitart/Apap 5-325 [[place] 5/325] 1 - 2 tablet PO Q4H PRN PRN #12 tablet 12/14/16 Acyclovir [Zovirax] 1 applic TOPICAL 5X/DAY 05/08/18 Cholecalciferol (VIT D3) [Vitamin D3] 2,000 unit PO DAILY 05/08/18 Lisinopril [Zestril] 10 mg PO BID 05/08/18 Primary Care Physician: Melissa Montes MD [Primary Care Provider] - Please follow up with your Primary Care Physician in: 1 Week Test Results: Test results from this visit will be discussed in further detail at your follow- up appointment, if applicable. Please Follow Up With: Joshua Khanna MD When: Call for follow up Proposed Discharge Date: 05/12/18
--- NOTE | 2018-05-14 19:05 | PCM.DC.SUM ---
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 The patient is status post subtotal gastrectomy with anastomosis. Electronically Signed: Terrell Jules MD at 10:38 EST Tel [phone], Service support , Renal Ultrasound 05/09/18 10:46 IMPRESSION: Increased echogenicity of the bilateral renal cortices, suggestive medical renal disease. The study is otherwise unremarkable. Electronically Signed: Kannan Mccann DO at 17:05 EST Tel [phone], Service support , KUB X-Ray 05/10/18 08:29 IMPRESSION: Normal x-ray examination of the abdomen and pelvis. Electronically Signed: Pipe Sun MD at 17:04 EST , Service support , general surgery- Dr Khanna Operations: None Procedures: Colonoscopy Summary of Care Provided: The patient is a 78 year old F with an extensive past medical history as listed below. He was admitted through the ED on 05/08/2018 with a complaint of generalized weakness and diarrhea for 1 week. Patient states she ate ice cream about a week prior to admission with a group of friends. Subsequently she started having diarrhea and thought it would resolve. Diarrhea however persisted all week and was dark, goes about 3 times a day. She had not noticed any meenakshi blood. She had also been getting progressively weaker and had to be helped by her to mobilize around the house. Chemistry shows sodium of 132 and creatinine of 4.35 with baseline being less than 1. Bicarb was 17 and anion gap was 9. CBC showed no leukocytosis and abdominal CT done showed pancolitis with thickening of the terminal ileum suggesting that Crohn's should be ruled out. She was admitted to be managed for AK I due to dehydration and generalized debility due to dehydration as well as pancolitis. She was started on IV ciprofloxacin. Diarrhea subsequently resolved. C. difficile screen was negative. However she had stool occult blood that tested positive. General surgery was consulted and she had a colonoscopy which only showed mild inflammation of the mucosa which was patchy and diffuse she had biopsies taken. Terminal ileum was not assessed due to patient anatomy. Patient remained stable and tolerated us regular diet afterwards. She was discharged home on 05/12/2018 to follow-up with her primary care doctor. Patient seen and examined prior to discharge. She had no complaints and denied any fever or chills, cough or chest pain, shortness of breath, abdominal pain, diarrhea vomiting. Review of systems otherwise negative. Labs and vitals reviewed. Examination: Vitals: [] Vital Signs Height 5 ft 2 in Weight: 126 lb 0.013 oz Weight in Pounds 126.0 lbs Pulse Ox 100 Temperature 97.8 F Pulse Rate 96 Respiratory Rate 18 Blood Pressure [BP] 147/87 Blood Pressure 151/80 Blood Pressure Position [BP] Semi-Fowlers Blood Pressure Position Semi-Fowlers General: Alert, Oriented x3, Cooperative, No apparent distress HEENT: Atraumatic, PERRLA, EOMI, Normocephalic Oral: Moist Mucosa Neck: Supple, No JVD, Negative Carotid Bruits Lungs: Clear to auscultation, Normal air movement, No rhonchi, No wheeze, No rales Cardiovascular: Regular rate, Regular Rhythm, Normal S1, Normal S2, No murmurs Abdomen: Bowel Sounds Present, Soft, Non Tender, Non-Distended, No Hepato-splenomegaly Extremities: No clubbing, No cyanosis, No edema, Capillary Refill Less than 3 Seconds Skin: No rashes, No breakdown Musculoskeletal: No Tenderness to Palpation of Joints or Extremities Lymphatic: No Cervical, Supraclavicular, or Inguinal Adenopathy Neurological: Cranial nerves II-XII grossly intact Psych/Mental Status: Normal Affect, Appropriate, Alert and oriented to time, place, person, mood and affect Plan as stated above. - Physical Exam Vital Signs Temp Pulse Resp BP Pulse Ox 97.8 F 96 18 151/80 H 100 05/12/18 18:20 05/12/18 18:20 05/12/18 18:20 05/12/18 18:20 05/12/18 18:20 Oxygen Delivery Method Room Air Weight: 126 lb 0.013 oz Body Mass Index (BMI) 23.0 Intake and Output for Last 24 Hours 05/12/18 05/13/18 05/14/18 23:59 23:59 23:59 Intake Total 3684 / 3684 Balance 3684 / 3684 Microbiology Past 72 Hours 05/11/18 14:30 Enteric Bacteriology - Final Stool 05/11/18 14:30 C. difficile DNA Amplification - Final Stool 05/11/18 14:30 Stool Occult Blood ([facility]) - Final Stool Occult Blood Positive Discharge Diet: Low fat/ Low Cholesterol Discharge Activity: Return to Normal Activity Weight Bearing Status: Weight bearing as tolerated Call your doctor if you observe: Fever of 101 or Higher, Shortness of breath, Dizziness, Fainting spells Home Medications: Medications to take at Discharge Cyanocobalamin [Vitamin B12] 1,000 mcg IM UD 04/11/13 Gabapentin [Neurontin] 600 mg PO BID 04/11/13 Glimepiride [Amaryl] 1 mg PO DAILY 04/11/13 Levothyroxine [Synthroid] 25 mcg PO DAILY 04/11/13 Melatonin 10 mg PO QHS 04/11/13 Metformin HCl [Glucophage] 850 mg PO BIDCM 04/11/13 Mirtazapine [Remeron] 15 mg PO QHS 04/11/13 Paroxetine HCl [Paxil] 10 mg PO DAILY 04/11/13 Cyclobenzaprine [Flexeril] 10 mg PO QHS 11/06/15 buPROPion XL [Wellbutrin Xl] 150 mg PO DAILY 11/06/15 Hydrocodone Bitart/Apap 5-325 [[place] 5/325] 1 - 2 tablet PO Q4H PRN PRN #12 tablet 12/14/16 Acyclovir [Zovirax] 1 applic TOPICAL 5X/DAY 05/08/18 Cholecalciferol (VIT D3) [Vitamin D3] 2,000 unit PO DAILY 05/08/18 Lisinopril [Zestril] 10 mg PO BID 05/08/18 Primary Care Physician: Melissa Montes MD [Primary Care Provider] - Please follow up with your Primary Care Physician in: 1 Week Please Follow Up With: Joshua Khanna MD When: Call for follow up Disposition: Home Minutes spent on discharge:: 40 Patient Condition:: Stable Medical Necessity - Tobacco Use Smoking Status: Former smoker Meaningful Use Info Meaningful Use Diagnoses (Choose all that apply): None applicable Code Visit Inpatient E&M: 06650 Disch Hosp
--- NOTE | 2018-05-14 19:10 | DS.PCM_ITS ---
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 The patient is status post subtotal gastrectomy with anastomosis. Electronically Signed: Terrell Jules MD at 10:38 EST Tel [phone], Service support , Renal Ultrasound 05/09/18 10:46 IMPRESSION: Increased echogenicity of the bilateral renal cortices, suggestive medical renal disease. The study is otherwise unremarkable. Electronically Signed: Kannan Mccann DO at 17:05 EST Tel [phone], Service support , KUB X-Ray 05/10/18 08:29 IMPRESSION: Normal x-ray examination of the abdomen and pelvis. Electronically Signed: Pipe Sun MD at 17:04 EST , Service support , general surgery- Dr Khanna Operations: None Procedures: Colonoscopy Summary of Care Provided: The patient is a 78 year old F with an extensive past medical history as listed below. He was admitted through the ED on 05/08/2018 with a complaint of generalized weakness and diarrhea for 1 week. Patient states she ate ice cream about a week prior to admission with a group of friends. Subsequently she started having diarrhea and thought it would resolve. Diarrhea however persisted all week and was dark, goes about 3 times a day. She had not noticed any meenakshi blood. She had also been getting progressively weaker and had to be helped by her to mobilize around the house. Chemistry shows sodium of 132 and creatinine of 4.35 with baseline being less than 1. Bicarb was 17 and anion gap was 9. CBC showed no leukocytosis and abdominal CT done showed pancolitis with thickening of the terminal ileum suggesting that Crohn's should be ruled out. She was admitted to be managed for AK I due to dehydration and generalized debility due to dehydration as well as pancolitis. She was started on IV ciprofloxacin. Diarrhea subsequently resolved. C. difficile screen was negative. However she had stool occult blood that tested positive. General surgery was consulted and she had a colonoscopy which only showed mild inflammation of the mucosa which was patchy and diffuse she had biopsies taken. Terminal ileum was not assessed due to patient anatomy. Patient remained stable and tolerated us regular diet afterwards. She was discharged home on 05/12/2018 to follow-up with her primary care doctor. Patient seen and examined prior to discharge. She had no complaints and denied any fever or chills, cough or chest pain, shortness of breath, abdominal pain, diarrhea vomiting. Review of systems otherwise negative. Labs and vitals reviewed. Examination: Vitals: [] Vital Signs Height 5 ft 2 in Weight: 126 lb 0.013 oz Weight in Pounds 126.0 lbs Pulse Ox 100 Temperature 97.8 F Pulse Rate 96 Respiratory Rate 18 Blood Pressure [BP] 147/87 Blood Pressure 151/80 Blood Pressure Position [BP] Semi-Fowlers Blood Pressure Position Semi-Fowlers General: Alert, Oriented x3, Cooperative, No apparent distress HEENT: Atraumatic, PERRLA, EOMI, Normocephalic Oral: Moist Mucosa Neck: Supple, No JVD, Negative Carotid Bruits Lungs: Clear to auscultation, Normal air movement, No rhonchi, No wheeze, No rales Cardiovascular: Regular rate, Regular Rhythm, Normal S1, Normal S2, No murmurs Abdomen: Bowel Sounds Present, Soft, Non Tender, Non-Distended, No Hepato- splenomegaly Extremities: No clubbing, No cyanosis, No edema, Capillary Refill Less than 3 Seconds Skin: No rashes, No breakdown Musculoskeletal: No Tenderness to Palpation of Joints or Extremities Lymphatic: No Cervical, Supraclavicular, or Inguinal Adenopathy Neurological: Cranial nerves II-XII grossly intact Psych/Mental Status: Normal Affect, Appropriate, Alert and oriented to time, place, person, mood and affect Plan as stated above. - Physical Exam Vital Signs Temp Pulse Resp BP Pulse Ox 97.8 F 96 18 151/80 H 100 05/12/18 18:20 05/12/18 18:20 05/12/18 18:20 05/12/18 18:20 05/12/18 18:20 Oxygen Delivery Method Room Air Weight: 126 lb 0.013 oz Body Mass Index (BMI) 23.0 Intake and Output for Last 24 Hours 05/12/18 05/13/18 05/14/18 23:59 23:59 23:59 Intake Total 3684 / 3684 Balance 3684 / 3684 Microbiology Past 72 Hours 05/11/18 14:30 Enteric Bacteriology - Final Stool 05/11/18 14:30 C. difficile DNA Amplification - Final Stool 05/11/18 14:30 Stool Occult Blood (ENOCH) - Final Stool Occult Blood Positive Discharge Diet: Low fat/ Low Cholesterol Discharge Activity: Return to Normal Activity Weight Bearing Status: Weight bearing as tolerated Call your doctor if you observe: Fever of 101 or Higher, Shortness of breath, Dizziness, Fainting spells Home Medications: Medications to take at Discharge Cyanocobalamin [Vitamin B12] 1,000 mcg IM UD 04/11/13 Gabapentin [Neurontin] 600 mg PO BID 04/11/13 Glimepiride [Amaryl] 1 mg PO DAILY 04/11/13 Levothyroxine [Synthroid] 25 mcg PO DAILY 04/11/13 Melatonin 10 mg PO QHS 04/11/13 Metformin HCl [Glucophage] 850 mg PO BIDCM 04/11/13 Mirtazapine [Remeron] 15 mg PO QHS 04/11/13 Paroxetine HCl [Paxil] 10 mg PO DAILY 04/11/13 Cyclobenzaprine [Flexeril] 10 mg PO QHS 11/06/15 buPROPion XL [Wellbutrin Xl] 150 mg PO DAILY 11/06/15 Hydrocodone Bitart/Apap 5-325 [Sterling 5/325] 1 - 2 tablet PO Q4H PRN PRN #12 tablet 12/14/16 Acyclovir [Zovirax] 1 applic TOPICAL 5X/DAY 05/08/18 Cholecalciferol (VIT D3) [Vitamin D3] 2,000 unit PO DAILY 05/08/18 Lisinopril [Zestril] 10 mg PO BID 05/08/18 Primary Care Physician: Melissa Montes MD [Primary Care Provider] - Please follow up with your Primary Care Physician in: 1 Week Please Follow Up With: Joshua Khanna MD When: Call for follow up Disposition: Home Minutes spent on discharge:: 40 Patient Condition:: Stable Medical Necessity - Tobacco Use Smoking Status: Former smoker Meaningful Use Info Meaningful Use Diagnoses (Choose all that apply): None applicable Code Visit Inpatient E&M: 55112 Disch Hosp
--- NOTE | 2018-05-15 16:03 | CASEMGMT ---
LUDIN BISHOP Discharge Follow-up Phone Call: SEVEN: Triston Strata: 3 Call Date: 05/15/18 Discharge Date: 05/12/18 Time of Call: 1605 Duration: 3 min Admitting Diagnosis: ROMI, Pancolitis LUDIN BISHOP completed follow-up phone call after recent hospitalization. Patient doing well, no questions regarding discharge instructions. Patient has follow-up appt scheduled with PCP.
== END 2018-05-12 18:47 | disposition home or self-care (01) | DRG 392 ==
LOC: ED 08:20 → MS3 11:49
PROVIDERS: Anesthesiology; Surgery; Admitting Provider Student in an Organized Health Care Education/Training Program; Emergency Provider Emergency Medicine; Family Provider Internal Medicine; PCP Internal Medicine; Visit Provider Student in an Organized Health Care Education/Training Program
PROC: 0DJD8ZZ Inspection of Lower Intestinal Tract, Via Natural or Artificial Opening Endoscopic (ICD-10-PCS; CPT 45378; principal; 2018-05-12 10:55)
DX: K52.9 Noninfective gastroenteritis and colitis, unspecified (principal); N17.9 Acute kidney failure, unspecified; E87.2 Acidosis; E87.1 Hypo-osmolality and hyponatremia; E03.9 Hypothyroidism, unspecified; E11.9 Type 2 diabetes mellitus without complications; Z79.84 Long term (current) use of oral hypoglycemic drugs; F32.9 Major depressive disorder, single episode, unspecified; I10 Essential (primary) hypertension; Z90.3 Acquired absence of stomach [part of]; Z87.891 Personal history of nicotine dependence; E83.51 Hypocalcemia; E87.6 Hypokalemia; E86.0 Dehydration; R19.5 Other fecal abnormalities
CPT/HCPCS: 36415; 74018; 74176; 76770; 80048; 80053; 81001; 82274; 82436; 82962; 83036; 83605; 83690; 84133; 84300; 84443; 85025; 85610; 85730; 86850; 86900; 87177; 87209; 87493; 87506; 88305; 93005; 99283; J7030; A4216; J0610; J3490

== ENCOUNTER → 2018-09-05 08:56 | Outpatient (CLI) | payer MEDICARE, SELFPAY ==
--- NOTE | 2018-09-05 09:19 | MRI_ITS ---
STUDY: MRI LUMBAR SPINE WITHOUT CONTRAST REASON FOR EXAM: Female, 78 years old. DDD.RADICULOPATHY pain in bilat buttocks and legs x 4 months. TECHNIQUE: Standardized fat and water weighted pulse sequences were obtained in the sagittal and axial planes. COMPARISON: None FINDINGS: T12-L1: Normal endplates. Normal disc height, hydration and morphology. Normal bilateral facet joints. Normal central canal and bilateral lateral recesses. Normal bilateral intervertebral neural foramina. Normal lumbar lordosis. There is no substantial scoliosis. Normal conus medullaris that terminates at the L1 level. L1-2: Normal endplates. Small right para midline disc herniation impinging on the right L2 nerve root. Normal bilateral facet joints. Normal central canal and bilateral lateral recesses. Normal bilateral intervertebral neural foramina. L2-3: Endplate spondylosis. Decreased disc height and small circumferential disc bulge. Degenerative changes of the bilateral facet joints. Mild narrowing of the central canal and bilateral intervertebral neural foramina. L3-4: Endplate spondylosis. Decreased disc height and large circumferential disc bulge. Degenerative changes of the bilateral facet joints. Severe narrowing of the central canal and bilateral intervertebral neural foramina. L4-5: Endplate spondylosis. Decreased disc height and small circumferential disc bulge. Right para midline and right foraminal disc herniation impinging on the right L5 and right L4 nerve roots. Degenerative changes of the bilateral facet joints. Mild narrowing of the central canal and severe narrowing of the bilateral intervertebral neural foramina. L5-S1: Endplate spondylosis. Decreased disc height and small circumferential disc bulge. Degenerative changes of the bilateral facet joints. Mild narrowing of the central canal and bilateral intervertebral neural foramina. Normal visualized sacral ala. Normal visualized paraspinous soft tissue structures. MRI/Spine Lumbar (Routine) IMPRESSION: Multilevel degenerative changes, as described above. Electronically Signed: Johnathan Abbasi, at 7:22 EST Tel , Service support ,
== END ==
PROVIDERS: Family Provider Internal Medicine; PCP Internal Medicine; Referring Provider Nurse Practitioner Family; Visit Provider Nurse Practitioner Family
DX: M46.96 Unspecified inflammatory spondylopathy, lumbar region (principal); M51.17 Intervertebral disc disorders with radiculopathy, lumbosacral region; M47.27 Other spondylosis with radiculopathy, lumbosacral region
CPT/HCPCS: 72148

== ENCOUNTER 2018-09-25 12:30 | Outpatient (RCR) | payer MEDICARE, SELFPAY ==
--- NOTE | 2018-09-09 10:50 | HP.PTEVAL_ITS ---
Patient's Visit Information SONNY DENNIS is a 78 year old F referred to Physical Therapy by CHRISTOS Gant with a diagnosis of lumbar DDD, sacralitis, radiculopathy, R hip pain. Date of Evaluation: 09/04/18 Physical Therapist: mJ Guy DPT - Visit Plan Frequency: 2x /Week Duration: 4-6 Weeks Plan: Start with postural exercises, core stability, deep water hanging as tolerated in aquatic setting. (Pt. wants to avoid swimming and getting her hair wet). Progress functional postural stability exercises as tolerated. - Subjective Findings: Pt. is here today for her initial evaluation with diagnosis of lumbar DDD, sacralitis, radiculopathy, R hip pain. Pt. reports having increased pain for ~4+ months now that has been progressively getting worse. Pt. reports having pain and tingling in B LEs. Pt. reprots that her pain in bilateral hips now. Pt. reports increased pain with walking and prolonged sitting. Pt. does have some tinglinging into her BLEs. 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 Pt. has not trialed any exercises at this point in time. She has trialed ice and heat without decrease in symptoms. Pt. is hopeful to reduce symptoms in order to get back to all recreational activities without limitations. No recent xrays or MRI. Pt. is to have MRI tomorrow. - Pain lumbar spine Pain Intensity (Out of 10): 5 Pain Intensity Range: 2, 6 B hips Pain Intensity (Out of 10): 5 Pain Intensity Range: 2, 8 - Objective POSTURE: Pt. has decreased lumbar lordosis. Pt. has increased thoracic kyphosis, erect posture increases her symptoms. PALPATION: Pt. has increased tenderness throughout B hips and lumbar spine. Pt. has increased erector spinea symptoms. NEURO: Pt. has normal sensation throughout and normal DTR of BLEs. Pt. is able to rise on heels and toes without issues, but uses balance aide. ROM: LUMBAR SPINE: flexion mod loss increase NW, ext mod loss increase NW, SB min loss bilat increase NW, rotation mod loss bilat increase NW. Pt. has tight B HS and hip flexors. MMT: BLE 4/5 throughout with increased pain with hip flexor testing. Core strength- poor. Difficult to maintain PPT with any core stability exercises. GAIT: Pt. has normal step length bilaterally. Pt. has increased lateral hip sway. Pt. has generally flexed posture in stance and worsens with increased ambulation. STAIRS: Step to pattern with use of BHR. - Goals Goal 1:: Pt. to be I with HEP. Goal Time Frame: 4-6 Weeks Goal 2:: Pt. to have increased lumbar ROM by 25% without increase in symptoms. Goal Time Frame: 4-6 Weeks Goal 3:: Pt. to have increased core and BLE strength by 1/2 grade of all effected musculature. Goal Time Frame: 4-6 Weeks Goal 4:: Pt. to have increased postural awareness evident by maintaining improved posture throughout therapy session. Goal Time Frame: 4-6 Weeks Goal 5:: Pt. to ambulate community distances without AD with 0-2/10 lumbar and B hip pain. Goal Time Frame: 4-6 Weeks Goal 6:: Pt. to sleep throughout the night without increase in symptoms. Goal Time Frame: 4-6 Weeks - Rehabilitation Potential Physical Therapy Diagnosis: lumbar DDD, sacralitis, radiculopathy, R hip pain. Pt. has marked core weakness and decraesed ROM. I would like the patient to work on core stability adn postural exercises in aquatic setting to increase core stability in gravity reduced enviornment Rehabilitation Potential: Fair - Anticipated Interventions Patient/Client Instruction: Educate patient on: Condition, Plan of Care, Risk Factors, Benefits of Fitness Program For the Purpose of:: To improve decision making, To facilitate caregiver knowledge, To improve self management, To prevent re-injury, To improve ability to perform tasks related to life management, To improve tolerance to ADL's Therapeutic Exercise to Include: Strength training, Power training, Endurance training, Balance training, Flexibilty training, Gait and locomotor training, In an aquatic setting, Active ROM, Dynamic Lumbar Stabilization, Genie Exercises For the Purpose of:: To decrease pain, To decrease swelling/inflammation, To increase ROM, To improve nutrient delivery to tissue, To increase oxygenation perfusion, To improve muscle performance and motor function, To decrease level of supervision to perform tasks, To improve ability of physical actions for home/community/work/leisure, To improve gait and locomotor functions, To improve health of tissue, To decrease soft tissue restriction, To increase flexibility/ROM Thank you for the opportunity to evaluate your patient. For Medicare and Medicare HMO plans, please review the plan of care and approve it. It will need to be FAXED BACK to us at [phone] for Medicare purposes. For Medicare only, by signing this I certify the plan of care. Please let me know if there are questions or concerns regarding this plan of care. Physician Signature: Date:
--- NOTE | 2019-03-09 13:43 | HP.PT.NRP ---
HP - Discharge Summary (1) - Patient Information SONNY DENNIS was seen in my office for initial evaluation on 09/04/18. The following Plan of Care was established for this patient: Initial Frequency: 2x /Week Initial Duration: 4-6 Weeks - Anticipated Interventions Patient/Client Instruction: Educate patient on: Condition, Plan of Care, Risk Factors, Benefits of Fitness Program For the Purpose of:: To improve decision making, To facilitate caregiver knowledge, To improve self management, To prevent re-injury, To improve ability to perform tasks related to life management, To improve tolerance to ADL's Therapeutic Exercise to Include: Strength training, Power training, Endurance training, Balance training, Flexibilty training, Gait and locomotor training, In an aquatic setting, Active ROM, Dynamic Lumbar Stabilization, Genie Exercises For the Purpose of:: To decrease pain, To decrease swelling/inflammation, To increase ROM, To improve nutrient delivery to tissue, To increase oxygenation perfusion, To improve muscle performance and motor function, To decrease level of supervision to perform tasks, To improve ability of physical actions for home/community/work/leisure, To improve gait and locomotor functions, To improve health of tissue, To decrease soft tissue restriction, To increase flexibility/ROM This patient was last seen in our office 09/25/18. Pertinent comments regarding their Physical therapy will appear below: Pt. was seen in aquatic setting her her low back pain. Pt. did not attend her last visits and has not been seen in several months. Pt. will be DC from PT at this point in time. At this point I will be discontinuing this patient from physical therapy. I would be happy to see this patient again in the future if found appropriate by the physician. Thank you! Jm Guy, ENDERT
== END 2018-09-25 19:00 | disposition home or self-care (01) ==
LOC: PT 12:30
PROVIDERS: Family Provider Internal Medicine; PCP Internal Medicine; Referring Provider Nurse Practitioner Family; Visit Provider Nurse Practitioner Family
DX: M51.37 Other intervertebral disc degeneration, lumbosacral region (principal); M47.817 Spondylosis without myelopathy or radiculopathy, lumbosacral region; M54.17 Radiculopathy, lumbosacral region; M46.96 Unspecified inflammatory spondylopathy, lumbar region; M25.551 Pain in right hip; M79.10 Myalgia, unspecified site
CPT/HCPCS: 97113; 97161

== ENCOUNTER 2019-03-27 11:00 | Outpatient (RCR) | payer MEDICARE, SELFPAY ==
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
--- NOTE | 2019-03-27 11:27 | HP.PTDCSUM_ITS ---
HP - PT D/C Summary It has been my pleasure to treat SONNY DENNIS under orders from CHRISTOS Sy, for the diagnosis of HECTOR POST MICRODECOMP L3L5, MICRODISC R L45, PL FUSION L3-L5 JANUARY 16 2019 for a total of 9 visit(s). Discharge Date: Please see the following information for a summary of their discharge status. - Subjective Subjective: PATIENT REPORTS SHE IS BETTER. SHE REPORTS THE PAIN SHE HAS NOW IS BESIDE HER INCISION. SHE REPORTS SHE CAN BEND OVER NOW. SHE STATES SHE HELPED HER TRISTEN, USES THE SWIFFER AND IS DOING OTHER HOUSEWORK NOW THAT SHE COULDN'T BEFORE. STATES THAT HER REDUCTION IN PAIN ALONE HAS MADE THE SURGERY WORTH IT. SHE REPORTS HER PAIN COMES AND GOES NOW AND SHE HAS NO PAIN SITTING WITH ME RIGHT NOW. LOW BACK PAIN UP TO 7/10 AT WORST NOW BUT SHE REPORTS SHE CAN GET IT TO GO AWAY QUICKLY JUST BY SITTING DOWN. PATIENT REPORTS SHE WANTS TO TRY TO JUST DO HER HOME EX'S NOW AND JOIN [employer] TO USE THE [employer] WITH [employer]NE[employer]. PEOPLE ARE AMAZED AT HOW WELL I AM GETTING ALONE. GOT A PUPPY. - Pain bilat. LB Pain Intensity (Out of 10): 0 - Overall Improvement % Improvement: 80 - Objective Objective/Function: INDEP GAIT AND TRANSFERS. NO LOB. Motor deficit: HECTOR LE'S 4-5/5 WITH MMT'ING. Sensory deficit: NO. ROM deficit: TIGHT HECTOR HS'S. Dural Signs: NEGATIVE HECTOR LE'S. Lumbar mvmt loss: FLEX - MOD. EXT - AARTI. RSG - AARTI. LSG - AARTI. Core strength: POOR. 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 - Goals Goal 1:: DECREASE C/O HECTOR LOW BACK AND LE SX'S Goal Progress: Goal Met Goal 2:: IMPROVE, BENDING, WALKING, ADL, HOMEMAKING AND RECREATIONAL FUNCTION Goal Progress: Goal Met Goal 3:: INSTRUCT IN PROPHYLAXIS Goal Progress: Goal Met - Plan Plan: D/C TO INDEP EX. PATIENT IS HAPPY TO BE BEING DISCHARGED. - D/C Information If there are questions or concerns regarding this patient's physical therapy, please feel free to call me at [phone]. Thank you for the referral of this patient. Sincerely, Valeri Caal, PT, Cert MDT
== END 2019-03-27 19:00 | disposition home or self-care (01) ==
LOC: PT 11:00
PROVIDERS: Family Provider Internal Medicine; PCP Internal Medicine; Referring Provider Nurse Practitioner Acute Care; Visit Provider Nurse Practitioner Acute Care
DX: Z98.1 Arthrodesis status (principal)
CPT/HCPCS: 97110; 97162; 97530

== ENCOUNTER 2019-04-14 16:11 | Emergency (ER) | payer MEDICARE, SELFPAY ==
[2019-04-14 16:12] VITALS: BP 127/98; PULSE 99; RESP 16; TEMP 36.8; O2SAT 95; BMI 21.9
--- NOTE | 2019-04-14 16:51 | CT_ITS ---
STUDY: CTA HEAD AND NECK WITH CONTRAST REASON FOR EXAM: Female, 78 years old. Headache and neck pain RADIATION DOSAGE (If Supplied By Facility): CTDIvol = ( 25.12 ) mGy, DLP = ( 1207.21 ) mGycm TECHNIQUE: CT angiography was performed with a multi-detector CT scanner. Data acquisition was obtained from the skull base through the vertex following intravenous administration of IV 100mL [id number]-370 100ML. MIP images were reconstructed from the axial data set. Post-processing of the angiographic images was performed, with multiplanar reformation and 3D reconstruction. Individualized dose optimization techniques were used for this CT. COMPARISON: No relevant priors. FINDINGS: Normal bilateral petrous carotid arteries. Moderate calcific plaquing of the right cavernous carotid artery with a normal supraclinoid bifurcation. Moderate calcific plaquing of the left cavernous carotid artery with a normal supraclinoid bifurcation. Normal right A1 segments of the anterior cerebral artery. Normal left A1 segments of the anterior cerebral artery. Anterior communicating artery not visualized consistent with normal variant Normal bilateral A2 segments of the anterior cerebral arteries. Normal right M1 and M2 segments of the middle cerebral arteries, with a normal M1 bifurcation. Normal left M1 and M2 segments of the middle cerebral arteries, with a normal M1 bifurcation. Posterior communicating arteries are not visualized consistent with normal variant. Normal bilateral vertebral arteries. Normal basilar artery with a normal basilar bifurcation. The visualized bilateral superior cerebellar (SCA) arteries are normal. Normal bilateral P1, P2 and visualized P3 segments of the posterior cerebral arteries. There is no demonstrated aneurysm of the [place]. There is no demonstrated abnormality of the visualized brain. AORTIC ARCH: Normal visualized aortic arch. Normal origins of the brachiocephalic, left common carotid, and left subclavian arteries. RIGHT CAROTID ARTERIES: Normal right common carotid artery (CCA). Mild calcific plaquing of the right common carotid bulb. Normal origin of the right internal carotid (ICA) artery without a hemodynamically significant stenosis. Normal visualized cervical portion of the right internal carotid artery. Normal origin of the right external carotid artery (ECA). LEFT CAROTID ARTERIES: Mild calcific plaquing of the left common carotid artery (and left common carotid bulb Normal origin of the left internal carotid (ICA) artery without a hemodynamically significant stenosis. Normal visualized cervical portion of the left internal carotid artery. Normal origin of the left external carotid artery (ECA). VERTEBRAL ARTERIES: Normal bilateral vertebral arteries. CT/CTA Head AND Neck W/ Contrast IMPRESSION: Atherosclerotic disease without evidence for hemodynamically significant stenosis, aneurysm or dissection Electronically Signed: Kwesi Sullivan MD at 18:33 EDT , Service support ,
--- NOTE | 2019-04-14 16:53 | ED.VISSUMM ---
- ER Visit Summary Date of Service: 04/14/19 Chief Complaint: Headache History of Present Illness: The patient is a 78 F presenting with headache. Patient states she woke up with these symptoms last Saturday. She has pain to the right side of her head and neck. It is worsened when she turns her head to the right. She has tried Tylenol at home. She denies recent injury. Denies numbness or weakness. Denies fever. She called her primary care physician and was advised to come to the ED for further evaluation. Physical Examination: Vitals are stable. Patient is afebrile. Alert no acute distress. HEENT exam is unremarkable. Neck is supple. no meningismus. Right paraspinal cervical muscle tenderness. No midline tenderness. Lungs are clear and equal bilaterally. Heart is regular rate and rhythm. Abdomen is soft nontender nondistended. Extremities are unremarkable. Skin is warm and dry. No focal neurologic deficit. Normal strength and sensation Remainder of exam is unremarkable. Emergency Department Course and Treatment: Patient was given morphine, Zofran IV. CTA head and neck show atherosclerotic disease without evidence for hemodynamically significant stenosis, aneurysm or dissection. On reevaluation, patient is resting comfortably. Her pain is likely musculoskeletal in nature. She is given short course of [place] due to multiple allergies. She is advised to follow-up with her primary care physician. Advised return to ED for worsening complaints. Disposition: Discharge home Impression: Neck sprain, headache This note was generated with [employer] dictation software. It may contain incorrect words, spelling, and punctuation that were not noted in review of the chart prior to signing ED Disposition - Plan for ED Patient: Instructions: Neck Sprain/Strain Prescriptions: Hydrocodone Bitart/Apap 5-325 [[place] 5MG-325MG] 1 tab PO Q6H PRN PRN 3 Days #10 tab PRN Reason: Pain Prescription Printed Referrals: Melissa Montes MD [Primary Care Provider] -
[2019-04-14 17:15] VITALS: BP 130/81; PULSE 90; RESP 18; O2SAT 97
[2019-04-14] MEDS: Morphine 2 MG/ML Syringe IV (17:18)
[2019-04-14] MEDS: Ondansetron 4 MG/2 ML Vial IV (17:18)
[2019-04-14 17:53] LABS: Anion Gap 6 (5-15); BUN 25 mg/dL (7-18); BUN/Creat Ratio 18.2 RATIO (10-20); Calcium,Total 8.8 mg/dL (8.5-10.1); Chloride 106 mmol/L (98-107); Creatinine, Serum 1.37 mg/dL (0.55-1.02); EST Glomerular Filtration Rate 40 mL/min (>60); Est Glom Filt Rate - Afr Amer 48 mL/min (>60); Estimated Creatinine Clearance 26.77 ml/min; Glucose 208 mg/dL (74-106); Potassium 4.6 mmol/L (3.5-5.1); Sodium Level 140 mmol/L (136-145)
[2019-04-14 18:21] VITALS: BP 142/67; RESP 18; O2SAT 96
--- NOTE | 2019-04-14 19:00 | DCINST.ED_ITS ---
ED Disposition - Plan for ED Patient: Instructions: Neck Sprain/Strain Prescriptions: Hydrocodone Bitart/Apap 5-325 [[place] 5MG-325MG] 1 tablet PO Q6H PRN PRN 3 Days #10 tablet PRN Reason: Pain Referrals: Melissa Montes MD [Primary Care Provider] -
[2019-04-14 19:13] VITALS: BP 153/79; PULSE 84; RESP 18
== END 2019-04-14 19:15 | disposition home or self-care (01) ==
LOC: ED 17:01
PROVIDERS: Emergency Provider Emergency Medicine; Family Provider Internal Medicine; PCP Internal Medicine
DX: S13.9XXA Sprain of joints and ligaments of unspecified parts of neck, initial encounter (principal); R51 Headache; X58.XXXA Exposure to other specified factors, initial encounter; Y93.9 Activity, unspecified; Y92.9 Unspecified place or not applicable; Y99.9 Unspecified external cause status; E11.9 Type 2 diabetes mellitus without complications; G25.81 Restless legs syndrome; M79.7 Fibromyalgia; Z79.84 Long term (current) use of oral hypoglycemic drugs; Z79.899 Other long term (current) drug therapy; Z98.84 Bariatric surgery status
CPT/HCPCS: 70496; 70498; 80048; 96374; 96375; 99285; Q9967; A4216; J2405

== ENCOUNTER 2019-10-24 11:47 | Emergency (ER) | payer MEDICARE, SELFPAY ==
[2019-10-24 11:49] VITALS: BP 119/64; PULSE 107; RESP 18; TEMP 36.2; O2SAT 94; BMI 22.5
--- NOTE | 2019-10-24 11:59 | RAD_ITS ---
STUDY: X-RAY - PELVIS AND LEFT HIP REASON FOR EXAM: Female, 79 years old. LT HIP PAIN X 3 MONTHS. NKI. HX BACK SURGERY TECHNIQUE: 3 views of the pelvis and hip. COMPARISON: None. FINDINGS: There is a non-specific bowel gas pattern. Normal visualized soft tissue structures. Normal bilateral iliac wings, sacroiliac joints and visualized sacrum. Normal bilateral superior and inferior pubic rami. Normal pubic symphysis. Normal bilateral ischial tuberosities. Normal visualized femoral head. Normal acetabulum. Normal hip joint. RAD/HIP, UNI W/ Pelvis 2-3 Views IMPRESSION: Normal x-ray examination of the pelvis and left hip. Electronically Signed: Miky Ramos MD at 13:05 EDT , Service support ,
--- NOTE | 2019-10-24 12:04 | ED.DCSUM_ITS ---
History of Present Illness Chief Complaint: Lower Extremity Injury Informant: Patient Onset: Weeks Context: Sudden Onset Timing: Continuous Quality: Pain Location: Proximal anterior lateral left thigh Current Severity: Mild Maximum Severity: Severe Worsened by: Certain types of movement especially flexion at the hip Relieved by: Diminished significantly if patient remains still Associated Symptoms: No associated symptoms Narrative: Patient is a 79-year-old woman who hadt fusion performed at the [facility] December 2018. She states she had multi levels. She did follow-up with the surgeon when the pain started. She informed me on further questioning that he believes she has bursitis. She was not prescribed anything for the bursitis. She denies fever, chills night sweats. She denies pain of the left thigh or extremity, discoloration or calf pain. There is no history of trauma. She does have diabetes. States her diabetes is well controlled. She denies foot drop with walking. She states when the pain becomes intense her knee does buckle. She denies bowel bladder dysfunction. She denies saddle paresthesia or anesthesia. 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 (7) Hypothyroid Status: Chronic (8) Postsurgical dumping syndrome Status: Chronic (9) Restless legs syndrome (RLS) Status: Chronic Past Medical History - Allergies and Home Meds Allergies/Adverse Reactions: Allergies Benzodiazepines Allergy (Verified 10/24/19 11:49) Unknown ciprofloxacin [From Cipro] Allergy (Verified 10/24/19 11:49) Itching ciprofloxacin HCl [From Cipro] Allergy (Verified 10/24/19 11:49) Itching meperidine HCl [From Demerol] Allergy (Verified 10/24/19 11:49) Unknown lorazepam [From Ativan] Adverse Reaction (Verified 10/24/19 11:49) Other physcosis nitrofurantoin [From Macrobid] Adverse Reaction (Verified 10/24/19 11:49) Vomiting nitrofurantoin macrocrystalline [From Macrobid] Adverse Reaction (Verified 10/24/19 11:49) Vomiting Sulfa (Sulfonamide Antibiotics) Adverse Reaction (Verified 10/24/19 11:49) Vomiting Xanthines Adverse Reaction (Verified 10/24/19 11:49) Vomiting Primary Care Physician: Melissa Montes MD [Primary Care Provider] - Surgical History: cholecystectomy, gastric bypass, - - herniorraphy Lives: Alone Smoking Status: Former smoker Alcohol: None Drugs: None - Family History Maternal Family History: Reports: Heart Disease Review of Systems General: Denies: Chills, Fever, Sweats Eyes: Denies: Visual changes - bilaterally, Blurred Vision - bilaterally ENT: Denies: Rhinorrhea, Sore throat Cardiovascular: Denies: Chest pain, Palpitations Respiratory: Denies: Dyspnea, Cough, Dyspnea on exertion Gastrointestinal: Denies: Abdominal pain, Nausea, Vomiting, Melena, Hematochezia Genitourinary: Denies: Dysuria, Hematuria, Frequency Musculoskeletal: Reports: Back pain, Extremity Pain. Denies: Myalgias, Arthralgias, Neck pain, Swelling Skin: Denies: Rash, Wounds Neurological: Denies: Headache, Weakness, Parasthesia, Numbness Endocrine: Denies: Polyuria, Polydipsia Hematologic: Denies: Easy bruising, Easy bleeding Physical Exam Vital Signs/Narrative: Vital Signs Temp Pulse Resp BP Pulse Ox 10/24/19 11:49 97.2 F L 107 H 18 119/64 94 Inital Vital Signs reviewed: Yes General: Well nourished, Well developed, No Acute Distress Head: Normocephalic, Atraumatic Eyes: Perrl, EOMI. Negative for: Pale conjunctiva, Scleral icterus ENT: Moist mucous membranes, No rhinorrhea Neck: Supple, Nontender, No lymphadenopathy, No JVD Cardiovascular: Regular rate, Regular rhythm, No murmurs, Normal S1, Normal S2 Respiratory: No distress, CTA bilaterally, Chest nontender Abdomen: Soft, Nontender, Nondistended, Normal bowel sounds Rectal: Deferred Back: Nontender. Negative for: Normal Inspection - Well-healed scar., CVA tenderness Extremities: No edema, Tenderness - Tenderness over the left greater trochanteric region.. Negative for: Nontender Skin: Normal color, No rash, No Trauma. Negative for: Cyanosis, Diaphoresis, Jaundice Neurological: Alert, Oriented x3, Cranial nerves II-XII grossly intact, Normal Strength, Normal DTR - 1+ at the patella and ankle. EHL is intact. Normal sensation over L4-L5 nerve root. Patient unable to bear weight because of pain and reason she was not asked to perform 1 legged squat. Psychological: Normal affect, Normal Mood Diagnostic/Tx/Re-eval Chest X-Ray - ED: Read by ED Physician, - - You x-ray of the hip was interpreted by me at 1232 as negative for fracture. There is no arthritic changes noted. There is no soft tissue swelling noted. There is no foreign body. The lower portion of the lumbar spine is visualized with Miller rods noted bilaterally. 10/24/19 11:59 HIP, UNI W/ Pelvis 2-3 Views [RAD] Stat Laboratory Results 10/24/19 10/24/19 12:05 12:05 WBC 5.8 RBC 3.57 L Hgb 10.8 L Hct 34.6 L MCV 96.9 MCH 30.3 MCHC 31.2 L RDW Std Deviation 43.8 RDW Coeff of Rommel 12.3 Plt Count 317 MPV 9.3 Immature Gran % (Auto) 0.300 Neut % (Auto) 39.6 L Lymph % (Auto) 37.3 [place] % (Auto) 11.3 H Eos % (Auto) 10.1 H Baso % (Auto) 1.4 H Absolute Neuts (auto) 2.3 Absolute Lymphs (auto) 2.17 Nucleated RBC % 0 ESR 12 Sodium 137 Potassium 4.1 Chloride 102 Carbon Dioxide 28.0 Anion Gap 7 BUN 18 Creatinine 1.21 H Estim Creat Clear Calc 29.82 Est GFR (MDRD) Af Amer 55 L Est GFR (MDRD) Non-Af 46 L BUN/Creatinine Ratio 14.9 Glucose 118 H Calcium 9.2 - Medical Decision Making Suspect patient has a left greater trochanter enteric bursitis. Because she is diabetic BMP was obtained to assess glucose, anion gap and electrolytes. Since this has been present for several weeks CBC was obtained as well as ESR. Images were obtained as well. Differential diagnosis is muscle strain, pyogenic bursitis, noninfectious bursitis, doubt DVT based on history and location and doubt due to herniated disc. With a normal white count, ESR and x-ray will treat with burst of prednisone for greater trochanteric bursitis. ED Disposition - Plan for ED Patient: Disposition: Home or Assisted Living Diagnosis: Greater trochanteric bursitis of left hip Instructions: ED Bursitis Prescriptions: Prednisone [Deltasone] 40 mg PO DAILY #10 tab Prescription Printed Referrals: Melissa Montes MD [Primary Care Provider] - 1 Week if not improving
[2019-10-24 12:16] LABS: Absolute Lymphocyte Count 2.17 X10^3/uL (0.83-4.51); Absolute Neutrophil Count 2.3 X10^3/uL (2.0-7.7); Basophil# 0.08 X10^3/uL; Basophil% 1.4 % (0-1); Eosinophil# 0.59 X10^3/uL; Eosinophils% 10.1 % (0-5); Hematocrit 34.6 % (37-47); Hemoglobin 10.8 g/dL (12.0-15.0); Lymphocyte # 2.17 X10^3/ul (4.0); Lymphocyte % 37.3 % (19-41); Mean Corp Hgb Conc 31.2 g/dL (32-36); Mean Corpuscular Hgb 30.3 pg (27.0-32.0); Mean Corpuscular Volume 96.9 fL (81-99); Mean Platelet Vol. 9.3 fl (6.2-12.0); Monocyte# 0.66 X10^3/uL; Monocyte% 11.3 % (0-10); NRBC Flagged by Analyzer 0 % (0-5); Neutrophil % 39.6 % (47-70); Platelet Count 317 K/mm3 (150-450); RBC Distribution Width CV 12.3 % (11.6-14.6); RBC Distribution Width SD 43.8 fl (35.1-43.9); Red Blood Count 3.57 M/mm3 (4.2-5.4); White Blood Count 5.8 K/mm3 (4.4-11.0)
[2019-10-24 12:22] LABS: Erythrocyte Sedimentation Rate 12 mm/hr (0-30)
[2019-10-24 12:27] LABS: Anion Gap 7 (5-15); BUN 18 mg/dL (7-18); BUN/Creat Ratio 14.9 RATIO (10-20); Calcium,Total 9.2 mg/dL (8.5-10.1); Chloride 102 mmol/L (98-107); Creatinine, Serum 1.21 mg/dL (0.55-1.02); EST Glomerular Filtration Rate 46 mL/min (>60); Est Glom Filt Rate - Afr Amer 55 mL/min (>60); Estimated Creatinine Clearance 29.82 ml/min; Glucose 118 mg/dL (74-106); Potassium 4.1 mmol/L (3.5-5.1); Sodium Level 137 mmol/L (136-145)
[2019-10-24] MEDS: predniSONE 20 MG Tablet 60 MG PO (13:03)
[2019-10-24 13:05] VITALS: BP 119/68; PULSE 88; RESP 16; O2SAT 96
== END 2019-10-24 13:13 | disposition home or self-care (01) ==
PROVIDERS: Emergency Provider Emergency Medicine; PCP Internal Medicine
DX: M70.62 Trochanteric bursitis, left hip (principal); Y93.9 Activity, unspecified; E11.9 Type 2 diabetes mellitus without complications; M79.7 Fibromyalgia; K91.1 Postgastric surgery syndromes; E03.9 Hypothyroidism, unspecified; G25.81 Restless legs syndrome; F32.9 Major depressive disorder, single episode, unspecified; Z79.84 Long term (current) use of oral hypoglycemic drugs; Z79.899 Other long term (current) drug therapy; Z88.5 Allergy status to narcotic agent; Z88.2 Allergy status to sulfonamides; Z88.1 Allergy status to other antibiotic agents; Z87.891 Personal history of nicotine dependence; Z98.84 Bariatric surgery status; Z90.49 Acquired absence of other specified parts of digestive tract
CPT/HCPCS: 73502; 80048; 85025; 85652; 99283

== ENCOUNTER 2019-12-09 17:38 | Emergency (ER) | payer MEDICARE, SELFPAY ==
[2019-12-09 17:40] VITALS: BP 150/44; PULSE 110; RESP 18; TEMP 36.1; O2SAT 95; BMI 23.2
--- NOTE | 2019-12-09 17:59 | RAD_ITS ---
STUDY: X-RAY - LUMBAR SPINE REASON FOR EXAM: Female, 79 years old. Chronic back pain. Back surgery. TECHNIQUE: 3 view(s) of the lumbar spine were obtained. COMPARISON: MRI 09/05/2018 FINDINGS: Since prior studies patient has had posterior laminectomy and posterior fixation with radicular screws and posterior rods from L3-L5. Normal alignment and appearance on the lateral view. Disc heights are maintained. On the frontal view, slight dextroconvex scoliosis is seen, also present previously. No compression fractures or acute abnormalities. RAD/Lumbar Spine 2 or 3 Views IMPRESSION: Grossly satisfactory postoperative appearance with no acute abnormality, significant disc narrowing, or malalignment. Electronically Signed: Leo Huerta MD at 18:41 EDT , Service support ,
--- NOTE | 2019-12-09 17:59 | RAD_ITS ---
STUDY: X-RAY - PELVIS AND LEFT HIP REASON FOR EXAM: Female, 79 years old. PT HAS CHRONIC BACK PAIN WITH SURGERY IN MAR 2019. TECHNIQUE: 3 views of the pelvis and hip. COMPARISON: None. FINDINGS: There is a non-specific bowel gas pattern. Normal visualized soft tissue structures. Normal bilateral iliac wings, sacroiliac joints and visualized sacrum. Normal bilateral superior and inferior pubic rami. Normal pubic symphysis. Normal bilateral ischial tuberosities. Normal visualized femoral head. Normal acetabulum. Normal hip joint. RAD/HIP, UNI W/ Pelvis 2-3 Views IMPRESSION: Normal x-ray examination of the pelvis and hip. Electronically Signed: Leo Huerta MD at 18:44 EDT , Service support ,
--- NOTE | 2019-12-09 18:04 | ED.VISSUMM ---
- ER Visit Summary Date of Service: 12/09/19 Chief Complaint: Back and leg pain History of Present Illness: The patient is a 79 F with a history of lower back pain. She had lumbar surgery [address] Florencio Ibrahim. She had been doing well, and then about 6 months ago, she had increasing lower back pain. Denies any interval traumas or procedures. She said the pain is radiating down from her left lower back into her left hip and left knee. She tried Gambell at home, but is having severe pain. Denies any bowel or bladder changes. Denies fevers. Denies any other associated symptoms. Physical Examination: Lumbar inspection is normal. There is some pain on palpation to the left lower lumbar paraspinal region. Straight leg raise is negative. Hips and knees show normal range of motion. Good strength and sensation. Neurovascularly intact. Abdomen soft and nontender. Test Results: X-rays of the lumbar spine and left hip were performed. Emergency Department Course and Treatment: This is likely chronic pain with some sciatica symptoms. Patient received pain medicine and will check x-rays. X-rays show chronic and postoperative changes. No red flag features on exam or history. I believe she is appropriate for outpatient care. She will resume her Gambell at home. Follow-up with her outpatient physician. Return for any new or worsening issues. Treatment Plan: As above Disposition: Discharge Impression: Chronic back pain This note was generated with [employer] dictation software. It may contain incorrect words, spelling, and punctuation that were not noted in review of the chart prior to signing ED Disposition - Plan for ED Patient: Referrals: Melissa Montes MD [Primary Care Provider] -
[2019-12-09] MEDS: Morphine 4 MG/ML Syringe SC (18:08)
--- NOTE | 2019-12-09 18:50 | ED.DEP ---
ED Disposition - Plan for ED Patient: Instructions: ED Back Pain Acute or Chronic Referrals: Melissa Montes MD [Primary Care Provider] -
[2019-12-09 19:09] VITALS: RESP 16
--- OUTSIDE RECORDS SUMMARY | 2020-04-17 11:23 | XMS RPT_ITS | CCD ---
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 ADHESIVE TAPE] - Orthopaedic Surgeons [facility] (51080) Adhesive Tape Other: See 03-03-2013 - [place] [facility] Comments (63475) Benzodiazepines Mental Status Critical, 12-22-2002 - [facility] Change Critical [facility] Orthopaedic Surgeons [facility] (85542) Ciprofloxacin Critical, 11-13-2018 - [facility] Orthopaedic Surgeons [facility] (65625) Ciprofloxacin Itching 04-27-2008 - [place] [facility] (28488) Latex Translations: [ Rash Critical, 12-22-2002 - [facility] LATEX] Critical [facility] Orthopaedic Surgeons [facility] (90364) LORazepam Critical, 11-13-2018 - [facility] Critical [facility]edic Surgeons [facility] (78225) LORazepam Mental Status 12-27-2015 - [place] [facility] Change (53088) Meperidine Critical, 11-13-2018 - [facility] Orthopaedic Surgeons [facility] (08200) Meperidine 05-04-2005 - [facility] (89971) Nitrofurantoin Critical, 11-13-2018 - [facility] Critical [facility] Orthopaedic [facility] (11880) NITROFURANTOIN, GI Upset Moderate 01-10-2009 - [place] [facility] MACROCRYSTALS / (45152) Nitrofurantoin, Monohydrate Sulfacetamide Critical, 11-13-2018 - [facility] Orth[facility]edic [facility] (55778) Sulfonamides Other: See 12-22-2002 - [facility] (Antibiotic) Comments (90061) XANTHINES Critical, 12-22-2002 - [facility] (88961) Medications Medication Name Sig Date Prescriber Location Acetaminophen / HYDROcodone-acetami 01-07-2020 [facility] ([facility] HYDROcodone nophen (NORCO) - [place] [facility] 5-325 mg per tablet 05-01-2020 - Orthop aedic Indications: [facility] 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 Do not start before February 06, 2020. 60 tablet 0 02/06/2020 04/01/2020 Discontinued NORCO 5-325 MG TABS one tablet every six 06-30-2019 [facility] Orthopaedic hours as needed for pain [place] [facility] Surgeons HYDROCODONE-ACETAMINOPHEN [phone] [facility] ([id number]) Brianda Ibrahim DO Comment: Take 1 tablet by mouth every 6 hours as needed for Pain for up to 8 days. May fill today secondary to increased pain after surgery Take 1 tablet by mouth every 6 hours as needed for Pain for up to 30 days. Do not start before January. Take 1 tablet by mouth every 6 hours as needed for Pain for up to 30 days. Acetaminophen / PERCOCET 5-325 MG TABS Take 01-26-2019 - [facility] oxyCODONE 1 tablet by mouth every 6 02-10-2019 [place] [facility] thopaedic hours as needed for pain MATERIAL CHASER-ASSISTANT PROFESSOR OF CHEMISTRY [facility] ter - Orthop aedic OXYCODONE-ACETAMINOPHEN Surg eons [phone] [employer] (06987) [place] MATERIAL [facility]ASER[facility] Acyclovir ACYCLOVIR 5 % OINT apply 11-13-2018 [facility] stal [facility] for 6 days as needed Orthopa edic ACYCLOVIR [place] - [phone] Leigh Romeo [facility] [place] MATERIAL CHASER-[facility] (82776) acyclovir (ZOVIRAX) 5 % 04-25-2012 Mati Montenegro [facility] Orthopaedic ointment Apply [address] - Orthopaedic Surgeons for 7 days for cold sores 15 Cli bria (01783) g 3 04/25/2012 Active Comment: Apply 6 times daily for 7 da ys for cold sores atorvastatin atorvastatin (LIPITOR) 06-23-2019 Mati Montenegro [facility] 20 mg tablet Take 1 Orthopae dic Center - tablet by mouth once Orthopa edic Surgeons daily. 90 tablet 3 Clinic ([id number]) 06/23/2019 Active ATORVASTATIN CALCIUM TABS 1 tab daily 11-13-2018 [facility] - ATORVASTATIN CALCIUM TABS Orthopaedic Surgeons [facility] (73413) [phone] Leigh Larios MATERIAL CHASER[facility] ATORVASTATIN CALCIUM TABS 1 tab daily 11-13-2018 [facility] - ATORVASTATIN CALCIUM TABS [facility]opaedic Surgeons [facility] (05905) [phone] Leigh Larios MATERIAL CHASER[facility] ATORVASTATIN CALCIUM TABS 1 tab daily 11-13-2018 [facility] - ATORVASTATIN CALCIUM TABS [facility] (58823) [phone] Leigh Larios MATERIAL CHASER-[facility] ATORVASTATIN CALCIUM TABS 1 tab daily 11-13-2018 [facility] - ATORVASTATIN CALCIUM TABS Orthopaedic Surgeons [facility] (39869) [phone] Leigh Larios MATERIAL CHASER[facility] Comment: Take 1 tablet by mouth once daily. BD LUER-MARLIN SYRINGE BD LUER-MARLIN SYRINGE 04-04-2017 Mati Brianda Luceroa [facility] 3 mL 23 x 1 syrg 3 mL 23 x 1 syrg ([id number]) USE FOR B-12 INJECTIONS EVERY 3 WEEKS OR DIRECTED 8 Syringe 3 04/04/2017 Active BD LUER-MARLIN SYRINGE 3 mL 23 x 1 04-04-2017 Mati D [facility] (39665) syrg USE FOR B-12 INJECTIONS EVERY 3 WEEKS OR DIRECTED 8 Syringe 3 04/04/2017 Active BD LUER-MARLIN SYRINGE 3 mL 23 x 1 04-04-2017 Mati D [facility] (34857) syrg USE FOR B-12 INJECTIONS EVERY 3 WEEKS OR DIRECTED 8 Syringe 3 04/04/2017 Active BD LUER-MARLIN SYRINGE 3 mL 23 x 1 04-04-2017 Mati D [facility] (09362) syrg USE FOR B-12 INJECTIONS EVERY 3 WEEKS OR DIRECTED 8 Syringe 3 04/04/2017 Active BD LUER-MARLIN SYRINGE 3 mL 23 x 1 04-04-2017 Mati D [facility] (06197) syrg USE FOR B-12 INJECTIONS EVERY 3 WEEKS OR DIRECTED 8 Syringe 3 04/04/2017 Active Comment: USE FOR B-12 INJECTIONS EVER Y 3 WEEKS OR DIRECTED Betamethasone / betamethasone 09-07-2019 Vidal Dennis [place] Betamethasone acetate-betamethasone Clini (87750) acetate sodium phosphate 6 mg injection (CELESTONE) Blood-Glucose Meter Blood-Glucose Meter 03-05-2018 [facility] monitoring [facility]ucose [facility] (33818[facility] Meter of Choice - Kit - Dx: Type 2 DM - Controlled E11.9 Test blood sugar 1 time daily. 1 Each 0 03/05/2018 Active Blood-Glucose Meter monitoring 03-05-2018 Mati D [place] [facility] (08956) kit Glucose Meter of Choice - Kit - Dx: Type 2 DM - Controlled E11.9 Test blood sugar 1 time daily. 1 Each 0 03/05/2018 Active Blood-Glucose Meter monitoring 03-05-2018 Mati D [place] [facility] (46739) kit Glucose Meter of Choice - Kit - Dx: Type 2 DM - Controlled E11.9 Test blood sugar 1 time daily. 1 Each 0 03/05/2018 Active Blood-Glucose Meter monitoring 03-05-2018 Mati D [place] [facility] (19150) kit Glucose Meter of Choice - Kit - Dx: Type 2 DM - Controlled E11.9 Test blood sugar 1 time daily. 1 Each 0 03/05/2018 Active Blood-Glucose Meter monitoring 03-05-2018 Mati D [place] [facility] (95386) kit Glucose Meter of Choice - Kit - Dx: Type 2 DM - Controlled E11.9 Test blood sugar 1 time daily. 1 Each 0 03/05/2018 Active Blood-Glucose Meter monitoring 02-20-2018 Mayra he [facility] (19675) kit Indications: Controlled type 2 diabetes mellitus without complication, without long-term current use of insulin ([facility]) Glucose Meter of Choice, insurance preferred - Kit - Dx: Type 2 DM - Controlled E11.9 1 Each 0 02/20/2018 Active Blood-Glucose Meter monitoring 02-20-2018 [facility] (07507) kit Indications: Controlled type 2 diabetes mellitus without complication, without long-term current use of insulin ([facility]) Glucose Meter of Choice, insurance preferred - Kit - Dx: Type 2 DM - Controlled E11.9 1 Each 0 02/20/2018 Active Blood-Glucose Meter monitoring 02-20-2018 Mayra ([facility] (78432) kit Indications: Controlled type 2 diabetes mellitus without complication, without long-term current use of insulin ([facility]) Glucose Meter of Choice, insurance preferred - Kit - Dx: Type 2 DM - Controlled E11.9 1 Each 0 02/20/2018 Active Blood-Glucose Meter monitoring 02-20-2018 [facility] (42030) kit Indications: Controlled type 2 diabetes mellitus without complication, without long-term current use of insulin ([facility]) Glucose Meter of Choice, insurance preferred - Kit - Dx: Type 2 DM - Controlled E11.9 1 Each 0 02/20/2018 Active Blood-Glucose Meter monitoring 02-20-2018 Mayra ([facility]) [facility] (07013) kit Indications: Controlled type 2 diabetes mellitus without complication, without long-term current use of insulin ([facility]) Glucose Meter of Choice, insurance preferred - Kit - Dx: Type 2 DM - Controlled E11.9 1 Each 0 02/20/2018 Active Comment: Glucose Meter of Choice, ins urance preferred - Kit - Dx: Type 2 DM - Controlled E11.9 Glucose Meter of Choice - Ki t - Dx: Type 2 DM - Controlled E11.9 Test blood sugar 1 time daily. buPROPion buPROPion XL 11-13-2018 Jake ([facility]) [facility] linic (WELLBUTRIN XL) 150 mg Ortho paedic Center - 24 hr tablet Take 1 Orthopae dic Surgeons tablet by mouth once Clinic (19316) daily. ID# [id number] 90 tablet 3 12/10/2019 Active Comment: Take 1 tablet by mouth once daily. ID# [id number] Calcium Carbonate calcium carbonate (CALCIUM Ccf Provi kimmy [facility] (56050) 600 ORAL) Take by mouth. 0 Active calcium carbonate (CALCIUM 600 ORAL) Take by Ccf Provider [facility] (71037) mouth. 0 Active calcium carbonate (CALCIUM 600 ORAL) Take by [facility]cf Provider [facility] (42711) mouth. 0 Active calcium carbonate (CALCIUM 600 ORAL) Take by [facility] Provider [facility] (59187) mouth. 0 Active calcium carbonate (CALCIUM 600 ORAL) Take by [facility] Provider [facility] (86128) mouth. 0 Active Comment: Take by mouth. Cholecalciferol VITAMIN D 1000 UNIT ORAL 11-13-2018 [facility] Orthopaedic TABLET 1 tab daily [place] - [facility] CHOLECALCIFEROL [phone] [facility] (29729) Leigh Larios MATERIAL CHASER-ASSISTANT PROFESSOR OF CHEMISTRY cholecalciferol (VITAMIN D) 01-13-2016 Mati Montenegro [facility] Orthopaedic 1,000 unit tab tablet Take 2 [facility] - Orthopaedic tablets by mouth once daily. 0 [facility] (34936) 01/13/2016 Active Comment: Take 2 tablets by mouth once daily. colesevelam WELCHOL 625 MG TABS 11-13-2018 [facility] 1 tab twice daily Orthopaedi c Center - Orthopaedic Sujey geons [facility] (4433 3) [phone] Leigh Larios MATERIAL CHASER-ASSISTANT PROFESSOR OF CHEMISTRY Cranberry preparation Cranberry Extract Ccf Provider [facility] 200 mg cap Take 800 (35485) mg by mouth. 0 Active Comment: Take 800 mg by mouth. cyclobenzaprine cyclobenzaprine 06-30-2019 Mati Montenegro [facility] (FLEXERIL) 10 mg tablet (441 95) Indications: Fibromyalgia Take 1 tablet by mouth daily at bedtime. ID# [id number] 90 tablet 3 06/30/2019 Active Comment: Take 1 tablet by mouth daily at bedtime. ID# [id number] Docusate docusate sodium (COLACE) 01-07-2020 Jake ([facility] [employer] 100 mg capsule Take 1 (32703 ) capsule by mouth twice daily as needed for Constipation. While taking hydrocodone ([place]) 60 capsule 2 01/07/2020 Active Comment: Take 1 capsule by mouth twic e daily as needed for Constipation. While taking hydrocodone ([place]) Famotidine famotidine (PEPCID) 20 mg 12-10-2019 Jake ([facility]) Cl jennifer Clinic tablet Indications: [place] (55985) gastroesophageal reflux disease Take 1 tablet by mouth twice daily. take for one month while taking celocoxib 60 tablet 0 12/10/2019 Active Comment: Take 1 tablet by mouth twice daily. take for one month while taking celocoxib Furosemide furosemide (LASIX) 20 09-14-2019 Jake ([facility]) [facility] mg tablet Take 1 tablet (441 95) by mouth once daily. as needed for leg swelling. 30 tablet 0 09/14/2019 Active Comment: Take 1 tablet by mouth once daily. as needed for leg swelling. gabapentin gabapentin 12-10-2019 - [facility] ([facility]) [facility] (NEURONTIN) 300 mg 06-10-2020 [place] [facility] capsule Indications: - Ortho paedic Chronic back pain Surgeons C linic greater than 3 months (29527 ) duration Take 2 capsules in the morning, 3 capsules at bedtime 450 capsule 3 12/10/2019 06/10/2020 Active GABAPENTIN 300 MG CAPS 2 caps once 11-13-2018 [facility] Orthopaedic [place] - daily and 3 caps at bedtime [facility] (21953) GABAPENTIN [id number] Sobeida Chavez MATERIAL CHASER-ASSISTANT PROFESSOR OF CHEMISTRY GABAPENTIN 300 MG CAPS 2 caps twice 11-13-2018 [facility] Orthopaedic [place] - daily GABAPENTIN Orth [facility] (68062) [phone] Leigh Larios MATERIAL CHASER-ASSISTANT PROFESSOR OF CHEMISTRY Comment: Take 2 capsules in the morni ng, 3 capsules at bedtime glimepiride glimepiride (AMARYL) 11-13-2018 - [facility] ([facility]) [facility] 1 mg tablet Take 1 03-31-2020 [place] [facility] tablet by mouth - Orthopaedi c daily with Surgeons Clinic breakfast. ID# ([id number]) [id number] 90 tablet 3 03/31/2020 Active Comment: Take 1 tablet by mouth daily with breakfast. ID# [id number] levothyroxine levothyroxine 12-07-2019 - [facility] Lamar [place] [facility] (SYNTHROID) 50 mcg 03-15-2020 [facility] Center tablet Take 1 tablet - Orth[facility] paedic by mouth daily before [facility] breakfast. ID# ([id number]) [id number] 30 tablet 5 03/15/2020 Active LEVOTHYROXINE SODIUM 25 MCG TABS 1 11-13-2018 [facility] Orthopaedic [place] - tab daily LEVOTHYROXINE [facility] (00930) SODIUM [phone] Leigh Larios MATERIAL CHASER-ASSISTANT PROFESSOR OF CHEMISTRY Comment: Take 1 tablet by mouth daily before breakfast. ID# [id number] Lidocaine lidocaine (PF) 10 mg/mL 09-07-2019 Vidal Dennis [facility] (1 %) 2 mL injection (40753) (XYLOCAINE) Lisinopril lisinopril (ZESTRIL, 08-13-2019 Jake ([facility]) [facility] rystal Clinic PRINIVIL) 10 mg tablet Ortho paedic Center - Take 1 tablet by mouth Ortho paedic Surgeons once daily. As directed Clin ic (20490) ID# [id number] 90 tablet 3 08/13/2019 Active LISINOPRIL 10 MG TABS 1 tab twice 11-13-2018 [facility] Orthopaedic [place] - daily LISINOPRIL Orth opaedic [facility] Clinic (66004) [phone] Leigh Larios MATERIAL CHASER-ASSISTANT PROFESSOR OF CHEMISTRY Comment: Take 1 tablet by mouth once daily. As directed ID# [id number] Melatonin melatonin 10 mg tab 10-11-2014 Mat[facility] Indications: Insomnia Orthop aedic Center - Take 10 mg by mouth daily Or thopaedic Surgeons at bedtime. 0 10/11/2014 Cli b[facility] (81848) Active Comment: Take 10 mg by mouth daily at bedtime. metFORMIN metFORMIN (GLUCOPHAGE) 11-13-2018 Jake ([facility]) [facility] 850 mg tablet [facility] nter - Indications: Controlled Orth opaedic Surgeons type 2 diabetes mellitus Cli b[facility] (27812) without complication, without long-term current use of insulin (HCC) Take 1 tablet by mouth twice daily with meals. ID# [id number] 60 tablet 1 11/09/2019 Active Comment: Take 1 tablet by mouth twice daily with meals. ID# [id number] Mirtazapine mirtazapine (REMERON) 11-13-2018 Mati [place] 15 mg tablet Take 1 Orthopae dic Center - tablet by mouth daily Orthop aedic Surgeons at bedtime. ID# Clinic ([id number] 3) [id number] 90 tablet 3 06/23/2019 Active Comment: Take 1 tablet by mouth daily at bedtime. ID# [id number] Multivitamin capsule Multivitamin capsule 10-11-2016 [facility] Take 1 capsule by (01300) mouth once daily. 0 10/11/2016 Active Multivitamin capsule Take 1 capsule 10-11-2016 [facility] (86155) by mouth once daily. 0 10/11/2016 Active Multivitamin capsule Take 1 capsule 10-11-2016 [facility] (57281) by mouth once daily. 0 10/11/2016 Active Multivitamin capsule Take 1 capsule 10-11-2016 [facility] (21251) by mouth once daily. 0 10/11/2016 Active Multivitamin capsule Take 1 capsule 10-11-2016 [facility] (63057) by mouth once daily. 0 10/11/2016 Active Comment: Take 1 capsule by mouth once daily. Nystatin nystatin (MYCOSTATIN) 08-13-2019 Jake ([facility] 100,000 unit/mL (34568) suspension One teaspoon swish in mouth for several minutes then swallow (or expectorate) four times daily. Use until gone. 200 mL 0 08/13/2019 Active Comment: One teaspoon swish in mouth for several minutes then swallow (or expectorate) four times miriam y. Use until gone. PARoxetine PARoxetine (PAXIL) 10 11-13-2018 Mati Montenegro [facility] mg tablet Take 1 tablet Orth [facility] - by mouth once daily. Orthopa edic Surgeons ID# [id number] 90 tablet Clini c (79164) 3 06/23/2019 Active Comment: Take 1 tablet by mouth once daily. ID# [id number] perflutren lipid perflutren lipid 02-04-2020 - Clara Eric nd microspheres microspheres (DEFINITY) 02-03-2021 Jas Iraheta [facility] (65472) (DEFINITY) 1.1 1.1 mg/mL injection (to mg/mL injection be provided with echo (to be provided procedure) Inject 1.3 with echo mL intravenously as procedure) directed. Administration Instructions: If no IV access, insert saline lock prior to administering contrast. Discontinue saline lock post exam. If patient has central line or IVAD, may access for administration according to line specific nursing protocol. Once exam is complete, flush line and de-access per line specific nursing protocol. Diluted IV Bolus: Dilute 1.3 ml of Definity with 8.7 ml of preservative-free saline. 1.3 mL 0 02/04/2020 02/03/2021 Active perflutren lipid 02-04-2020 - [facility] Clini c microspheres (DEFINITY) 1.1 02-03-2021 [place] (441 95) mg/mL injection (to be provided with echo procedure) Inject 1.3 mL intravenously as directed. Administration Instructions: If no IV access, insert saline lock prior to administering contrast. Discontinue saline lock post exam. If patient has central line or IVAD, may access for administration according to line specific nursing protocol. Once exam is complete, flush line and de-access per line specific nursing protocol. Diluted IV Bolus: Dilute 1.3 ml of Definity with 8.7 ml of preservative-free saline. 1.3 mL 0 02/04/2020 02/03/2021 Active perflutren lipid 02-04-2020 - [facility] Clini c microspheres (DEFINITY) 1.1 02-03-2021 [place] (441 95) mg/mL injection (to be provided with echo procedure) Inject 1.3 mL intravenously as directed. Administration Instructions: If no IV access, insert saline lock prior to administering contrast. Discontinue saline lock post exam. If patient has central line or IVAD, may access for administration according to line specific nursing protocol. Once exam is complete, flush line and de-access per line specific nursing protocol. Diluted IV Bolus: Dilute 1.3 ml of Definity with 8.7 ml of preservative-free saline. 1.3 mL 0 02/04/2020 02/03/2021 Active perflutren lipid 02-04-2020 - [facility] Clini c microspheres (DEFINITY) 1.1 02-03-2021 [place] (441 95) mg/mL injection (to be provided with echo procedure) Inject 1.3 mL intravenously as directed. Administration Instructions: If no IV access, insert saline lock prior to administering contrast. Discontinue saline lock post exam. If patient has central line or IVAD, may access for administration according to line specific nursing protocol. Once exam is complete, flush line and de-access per line specific nursing protocol. Diluted IV Bolus: Dilute 1.3 ml of Definity with 8.7 ml of preservative-free saline. 1.3 mL 0 02/04/2020 02/03/2021 Active perflutren lipid 02-04-2020 - [facility] Clini c microspheres (DEFINITY) 1.1 02-03-2021 [place] (441 95) mg/mL injection (to be provided with echo procedure) Inject 1.3 mL intravenously as directed. Administration Instructions: If no IV access, insert saline lock prior to administering contrast. Discontinue saline lock post exam. If patient has central line or IVAD, may access for administration according to line specific nursing protocol. Once exam is complete, flush line and de-access per line specific nursing protocol. Diluted IV Bolus: Dilute 1.3 ml of Definity with 8.7 ml of preservative-free saline. 1.3 mL 0 02/04/2020 02/03/2021 Active perflutren lipid 06-09-2019 - [facility] Clini c microspheres (DEFINITY) 1.1 06-08-2020 [place] (441 95) mg/mL injection (to be provided with echo procedure) Inject 1.3 mL intravenously as directed. 1.3 mL 0 06/09/2019 06/08/2020 [facility]flutren lipid [facility] (DEFINITY) 1.1 06-08-2020 [place] (441 95) mg/mL injection (to be provided with echo procedure) Inject 1.3 mL intravenously as directed. 1.3 mL 0 06/09/2019 06/08/2020 Active perflutren lipid 06-09-2019 [facility] microspheres (DEFINITY) 1.1 06-08-2020 [place] (441 95) mg/mL injection (to be provided with echo procedure) Inject 1.3 mL intravenously as directed. 1.3 mL 0 06/09/2019 06/08/2020 Active perflutren lipid 06-09-2019 - Clara Mark [place] [facility] c microspheres (DEFINITY) 1.1 06-08-2020 [place] (441 95) mg/mL injection (to be provided with echo procedure) Inject 1.3 mL intravenously as directed. 1.3 mL 0 06/09/2019 06/08/2020 Active perflutren lipid 06-09-2019 - Clara Mark [place] [facility] c microspheres (DEFINITY) 1.1 06-08-2020 [place] (441 95) mg/mL injection (to be provided with echo procedure) Inject 1.3 mL intravenously as directed. 1.3 mL 0 06/09/2019 06/08/2020 Active Comment: Inject 1.3 mL intravenously as directed. Administration Instructions: If no IV access, insert saline lock prior to administering contrast. Discontinue saline lock post exam. If patient has central line or IVAD, may access for admi nistration according to line specific nursing protocol. Once exam is complete, flush line and de-access per line specific nursing protocol. Diluted IV Bolus: Dilute 1.3 ml of Definity with 8.7 ml of preservative-free saline. Inject 1.3 mL intravenously as directed. PNV Cmb#[id number] Acid PNV Cmb#[id number] Acid Ccf Provider [facility] ( COMPLETE) 14 mg ( COMPLETE) 14 mg (07960) iron- 400 mcg tab iron- 400 mcg tab Take by mouth. Pt is taking 2 tablets daily 0 Active PNV Cmb#08-Fwqq-Axhrr Acid ( Ccf Provide [facility] ([id number]) COMPLETE) 14 mg iron- 400 mcg tab Take by mouth. Pt is taking 2 tablets daily 0 Active PNV Cmb#73-Ejmf-Jygrr Acid ( [facility] Provide [facility] ([id number]) COMPLETE) 14 mg iron- 400 mcg tab Take by mouth. Pt is taking 2 tablets daily 0 Active PNV Cmb#32-Rrfw-Pprer Acid ( [facility] Provide [facility] ([id number]) COMPLETE) 14 mg iron- 400 mcg tab Take by mouth. Pt is taking 2 tablets daily 0 Active PNV Cmb#24-Vdrr-Naxij Acid ( [facility] Provide [facility] (56305) COMPLETE) 14 mg iron- 400 mcg tab Take by mouth. Pt is taking 2 tablets daily 0 Active Comment: Take by mouth. Pt is taking 2 tablets daily Potassium Chloride potassium chloride SR 05-20-2018 [facility] ([facility]) [facility] (MICRO-K) 10 mEq CR Fish (51235) capsule Take 1 capsule by mouth once daily. once daily for three days then once daily when taking furosemide. 30 capsule 0 05/20/2018 Active Comment: Take 1 capsule by mouth once daily. once daily for three days then once daily when taking furosemide . Vitamin B 12 cyanocobalamin 1,000 10-29-2019 [facility] ([facility]) [facility] mcg/mL 1 mL IM every 3 [facility] paedic [place] - weeks 18 Vial 1 [facility] 10/29/2019 Active Clinic ([id number]) B-12 1000 MCG TABS 1 tab daily 11-13-2018 [facility] Orthopaedic CYANOCOBALAMIN Center - [facility] [phone] Leigh Larios C linic ([id number]) MATERIAL CHASER-ASSISTANT PROFESSOR OF CHEMISTRY cyanocobalamin (VITAMIN B-12) Ccf Provider [facility] Orthopaedic 500 mcg tab tab(s) Take by mouth Center - [facility] once daily. 0 Active Clinic ([id number]) Comment: 1 mL IM every 3 weeks Take by mouth once daily. Vitamin D VITAMIN D 1000 UNIT TABS 1 11-13-2018 [facility] tab daily Orthopa edic Center - CHOLECALCIFEROL [phone] [facility] Leigh Larios MATERIAL CHASER-ASSISTANT PROFESSOR OF CHEMISTRY Clinic (94159) Vitamin E Vitamin E, dl, acetate, Ccf Provider [facility] (VITAMIN E) 400 unit capsule (77867) Take 400 Units by mouth once daily. 0 Active Comment: Take 400 Units by mouth once daily. 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 Deficiency and other Pernicious anemia Active [facility] anemia (27652) Deficiency and other Iron deficiency anemia Active [facility] anemia (85864) Diabetes mellitus Type 2 diabetes mellitus Active 05-07-2005 [facility] without complication without complication - (24460) Disorders of lipid Hyperlipidemia Active [facility] metabolism (95449) Diverticulosis and Diverticulosis of colon Active 10-23-2005 [facility] diverticulitis - (35182) Essential hypertension Hypertensive disorder Active 9 [facility] - (30374) Gastroduodenal ulcer Peptic ulcer Active 10-23-2005 [facility] (except hemorrhage) - (19529)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 244.9, ICD10: E03.9 Most recent labwork within normal limits. 4. Controlled type 2 diabetes mellitus without complication, without long-term current use of insulin (HCC) - ICD9: 250.00, ICD10 : E11.9 Controlled, continue treatment unchanged 5. Essential hypertension - ICD9: 401.9, ICD10: I10 Controlled, continue treatment unchanged 6. Mixed hyperlipidemia - ICD9: 272.2, ICD10: E78.2 7. Iron deficiency anemia, unspecified iron deficiency anemi a type - ICD9: 280.9, ICD10: D50.9 currently without abnormalities 8. Pernicious anemia - ICD9: 281.0, ICD10: D51.0 Jake Fish APRN.CNS cnov on 2020-02-05 CNOV Office Visit (INTMWS) Normal 02-05-20 [facility] SONNY DENNIS ([id number]) [address] [facility] Date Time Provider Department ([id number]) 02/05/20 8:00 AM JAKE FISH ([facility]) INTMWS During your visit today, we recorded the following informati on about you: Pulse Respiration Blood pressure Weight 88/minute 14/minute 108/50 52.6 kg Jake Fish APRN.LAB ASST 02/05/2020 9:25 AM Signed SUBJECTIVE: Sonny M Sonny is a 79 year old female. ADVANCE DIRECTIVE DISCUSSION due on 11/05/2013 URINE ALBUMIN:CREATININE RATIO due on 08/19/2018 DIABETIC FOOT EXAM due on 12/13/2019 HPI Presents today for preoperative visit in internal medicine.. Exploration possible removal fusion L2-L 3 under general anesthesia at [facility] with Dr. Armin Ibrahim 02/08/2020. She was seen by her cardiolo gist Dr.Gregory Iraheta who advised an echocardiogram to check the status of moderate aortic s tenosis prior to her surgery. The echo is scheduled for later today. Without report of shortness of breath on exertion,syncope, presyncope, or chest pain. Limited in activities due to back pain, no noted chest yenny n or shortness of breath with activities reported. No recent hospitalization or infection reported. Preoperative EKG and labs completed at [facility]. EKG completed January 29, 2020 showed sinus rhythm with low voltage in extremity and precordial leads. Early transition of R waves. No ischemic changes or ectopy n oted. Labs 01/28/2020. Metabolic panel: Sodium 137 p otassium 4.3 chloride 100 CO2 25 anion gap 11 glucose 143 BUN 15 creatinine 1.0 2 estimated GFR. CBC: WBK 5.2, Hgb12.9 Hct 38.7 Platelets 370. albumin 4.3. Urine with many bacteri a, positive nitrates, positive leukocytes. No urine culture in fax ed information. HgbA1c 6.8% ACS NSQIP Surgical Risk Calculator 1. Age Group: 75 - 84 years 2. Sex: female 3. Functional Status: Independent 4. Emergency Case: No 5. ASA Class: Mild systemic disease 6. Steroid use for chronic condition: No 7. Ascites within 30 days prior to surgery: No 8. Systemic Sepsis within 48 hours prior to surgery: None 9. Ventilator Dependent: No 10. Disseminated Cancer: No 11. Diabetes: Oral 12. Hypertension requiring medication: Yes 13. Congestive Heart Failure in 30 days prior to surgery: No 14. Dyspnea: No 15. Current Smoker within 1 Year: No 16. History of COPD: No 17. Dialysis: No 18. Acute Renal Failure: No 19. BMI Class Calculation: Normal Review of Systems Constitutional: Negative. Respiratory: Negative. Cardiovascular: Negative. Musculoskeletal: Positive for back pain and gait problem. Objective BP 108/50 Pulse 88 Resp 14 Wt 52.6 kg (116 lb) BMI 2 1.92 kg/m? Physical Exam Vitals signs and nursing note reviewed. Constitutional: General: She is not in acute distress. Appearance: She is normal weight. She is not ill-appearing , toxic-appearing or diaphoretic. HENT: Head: Normocephalic and atraumatic. Eyes: General: No scleral icterus. Right eye: No discharge. Left eye: No discharge. Conjunctiva/sclera: Conjunctivae normal. Cardiovascular: Rate and Rhythm: Normal rate and regular rhythm. Pulses: Carotid pulses are 2+ on the right side and 2+ on the left s ladonna. Radial pulses are 2+ on the right side and 2+ on the left si de. Heart sounds: Murmur (systolic 3/6 RUSB) present. Pulmonary: Effort: Pulmonary effort is normal. Breath sounds: Normal breath sounds. Abdominal: General: Bowel sounds are normal. Palpations: Abdomen is soft. Musculoskeletal: Right lower leg: No edema. Left lower leg: No edema. Skin: General: Skin is warm and dry. Neurological: Mental Status: She is alert and oriented to person, place, and time. Mental status is at baseline. Psychiatric: Mood and Affect: Mood normal. Behavior: Behavior normal. Thought Content: Thought content normal. Judgment: Judgment normal. ALLERGIES Allergen Reactions - Macrobid [Nitrofura* GI Upset - Adhesive Tape (Lisa* Other: See Comments redness - Ativan [Lorazepam] Mental Status Change - Benzodiazepines Mental Status Change ativan--made her loopy while in hospital - Ciprofloxacin Itching Oral Yeast Infection Thrush - Demerol [Meperidine* - Latex Rash Pt notes is a sensitivity, not allergy - Sulfa (Sulfonamide * Other: See Comments Patient was treated for UTI in October 2011 after told nurse gregorio t reaction was just yeast infection (not vomiting as was previously listed) - Xanthines darvon perflutren lipid microspheres (DEFINITY) 1.1 mg/mL inj ection (to be provided with echo procedure) Inject 1.3 mL intravenously as di rected. Administration Instructions: If no IV access, insert saline lock prior to a dministering contrast. Discontinue saline lock post exam. If patient carreno s central line or IVAD, may access for administration according to line specif ic nursing protocol. Once exam is complete, flush line and de-access per line specific nursing protocol.Diluted IV Bolus: Dilute 1.3 ml of Defini ty with 8.7 ml of preservative-free saline. docusate sodium (COLACE) 100 mg capsule Take 1 capsule by mouth twice daily as needed for Constipation. While taking hydrocodone ([place]) [START ON 02/06/2020] HYDROcodone-acetamin ophen (NORCO) 5-325 mg per tablet Take 1 tablet by mouth every 6 hours as needed for Pain for up to 30 days. Do not start before February 06, 2020. HYDROcodone-acetaminophen (NORCO) 5-325 mg per tablet Take 1 tablet by mouth every 6 hours as needed for Pain for up to 30 days. buPROPion XL (WELLBUTRIN XL) 150 mg 24 hr tablet Take 1 tablet by mouth once daily. ID# [id number] gabapentin (NEURONTIN) 300 mg capsule Take 2 capsules in the morning, 3 capsules at bedtime famotidine (PEPCID) 20 mg tablet Take 1 tablet b y mouth twice daily. take for one month while taking celocoxib levothyroxine (SYNTHROID) 50 mcg tablet Take 1 tablet by m outh daily before breakfast. ID# [id number] metFORMIN (GLUCOPHAGE) 850 mg tablet Take 1 tablet by mouth twice daily with meals. ID# [id number] metFORMIN (GLUCOPHAGE) 850 mg tablet Take 1 tablet by mouth twice daily with meals. ID# [id number] cyanocobalamin 1,000 mcg/mL 1 mL IM every 3 weeks furosemide (LASIX) 20 mg tablet Take 1 tablet by mouth once daily. as needed for leg swelling. lisinopril (ZESTRIL, PRINIVIL) 10 mg tab let Take 1 tablet by mouth once daily. As directed ID# [id number] nystatin (MYCOSTATIN) 100,000 unit/mL suspension One t easpoon swish in mouth for several minutes then swallow (or expectorate ) four times daily. Use until gone. cyclobenzaprine (FLEXERIL) 10 mg tablet Take 1 tablet by angela th daily at bedtime. ID# [id number] atorvastatin (LIPITOR) 20 mg tablet Take 1 tablet by mouth o nce daily. mirtazapine (REMERON) 15 mg tablet Take 1 tablet by mouth daily at bedtime. ID# [id number] PARoxetine (PAXIL) 10 mg tab let Take 1 tablet by mouth once daily. ID# [id number] perflutren lipid microspheres (DEFINITY) 1.1 mg/mL inj ection (to be provided with echo procedure) Inject 1.3 mL intravenously as directed . calcium carbonate (CALCIUM 600 ORAL) Take by mouth. Vitamin E, dl, acetate, (VITAMIN E) 400 unit capsule T génesis 400 Units by mouth once daily. cyanocobalamin (VITAMIN B-12) 500 mcg tab tab(s) Take by angela th once daily. Cranberry Extract 200 mg cap Take 800 mg by mouth. blood sugar diagnostic (BLOOD GLUCOSE TEST) test strip Test blood sugar(s) 1 times daily. Dx: Type 2 DM - Controlled E11.9 Insulin: No glimepiride (AMARYL) 1 mg tablet Take 1 tablet b y mouth daily with breakfast. ID# [id number] PNV Cmb#[id number] Acid ( COM PLETE) 14 mg iron- 400 mcg tab Take by mouth. Pt is taking 2 tablets daily potassium chloride SR (MICRO-K) 10 mEq C R capsule Take 1 capsule by mouth once daily. once daily for three days then once daily when taking furosemide. Blood-Glucose Meter monitoring kit Glucose Meter of Choice - Kit - Dx: Type 2 DM - Controlled E11.9 Test blood sugar 1 time daily. Lancets lancets Test blood sugar(s) 1 times miriam y. Dx: Type 2 DM - Controlled E11.9 Insulin: No Blood-Glucose Meter monitori ng kit Glucose Meter of Choice, insurance preferred - Kit - Dx: Type 2 DM - Controlled E11.9 blood sugar diagnostic (BLOOD GLUCOSE TEST) test strip Test blood sugar(s) 1x daily. Dx: Controlled DM type 2. Insulin: No BD LUER-MARLIN SYRINGE 3 mL 23 x 1 syrg US E FOR B-12 INJECTIONS EVERY 3 WEEKS OR DIRECTED Multivitamin capsule Take 1 capsule by mouth once daily. cholecalciferol (VITAMIN D) 1,000 unit t ab tablet Take 2 tablets by mouth once daily. melatonin 10 mg tab Take 10 mg by mouth daily at bedtime. acyclovir (ZOVIRAX) 5 % ointment Apply 6 times daily for 7 days for cold sores Lancets (ACCU-CHEK MULTICLIX LANCET) Misc lancets Use as ins tructed PAST MEDICAL HISTORY Diagnosis Date - Abdominal pain, generalized - Abdominal pain, right upper quadrant - Abdominal pain, unspecified site - Anxiety state, unspecified - Depressive disorder, not elsewhere classified - Disorder of bone and cartilage, unspecified osteopenia - Diverticulosis of colon (without mention of hemorrhage) - DJD (degenerative joint disease) - Essential hypertension 01/06/2016 - Fibromyalgia - Iron deficiency anemia, unspecified - Other and unspecified hyperlipidemia - Pernicious anemia - Type II or unspecified type diabetes mellitus without ment ion of complication, not stated as uncontrolled dx'd early 30s Social History Tobacco Use - Smoking status: Former Smoker Packs/day: 1.00 Years: 5.00 Pack years: 5.00 Types: Cigarettes Quit date: 01/05/1971 Years since quittin.1 - Smokeless tobacco: Never Used Substance Use Topics - Alcohol use: Yes Comment: Rarely - Drug use: No Creatinine Date Value Ref Range Status 12/08/2019 0.96 0.58 - 0.96 mg/dL Final 05/07/2019 1.19 (H) 0.58 - 0.96 mg/dL Final 12/15/2018 1.23 (H) 0.58 - 0.96 mg/dL Final 07/16/2018 0.93 0.58 - 0.96 mg/dL Final Component Latest Ref Rng AND Units 12/08/2019 Protein, Total 6.3 - 8.0 g/dL 7.1 Albumin 3.9 - 4.9 g/dL 4.4 Calcium 8.5 - 10.2 mg/dL 9.9 Bilirubin, Total 0.2 - 1.3 mg/dL 0.2 Alkaline Phosphatase 34 - 123 U/L 65 AST 13 - 35 U/L 24 Glucose 74 - 99 mg/dL 117 (H) BUN 7 - 21 mg/dL 13 Creatinine 0.58 - 0.96 mg/dL 0.96 Sodium 136 - 144 mmol/L 138 Potassium 3.7 - 5.1 mmol/L 4.6 Chloride 97 - 105 mmol/L 98 CO2 22 - 30 mmol/L 25 Anion Gap 9 - 18 mmol/L 15 ALT 7 - 38 U/L 13 eGFR- >60 eGFR-All Other Races . 56 WBC 3.70 - 11.00 k/uL 5.25 RBC 3.90 - 5.20 m/uL 3.92 Hemoglobin 11.5 - 15.5 g/dL 12.0 Hematocrit 36.0 - 46.0 % 38.5 MCV 80.0 - 100.0 fL 98.2 MCH 26.0 - 34.0 pG 30.6 MCHC 30.5 - 36.0 g/dL 31.2 RDW-CV 11.5 - 15.0 % 13.1 Platelet Count 150 - 400 k/uL 333 MPV 9.0 - 12.7 fL 10.0 Absolute nRBC <0.01 k/uL <0.01 Cholesterol, Total <200 mg/dL 132 Triglyceride <150 mg/dL 100 HDL Cholesterol >39 mg/dL 64 LDL Cholesterol <100 mg/dL 48 Non HDL Cholesterol <130 mg/dL 68 Fasting Time hrs 12 VLDL Cholesterol <30 mg/dL 20 TC:HDL Ratio <5.10 2.06 LDL:HDL Ratio <2.54 0.75 Hemoglobin A1C 4.3 - 5.6 % 7.2 (H) Estimated Average Glucose mg/dL 160 TSH 0.270 - 4.200 uU/mL 2.880 Free T4 0.9 - 1.7 ng/dL 1.3 Echo 09/15/2018 CONCLUSIONS: - Exam indication: Aortic valve disorder - The left ventricle is smal l. Left ventricular systolic function is normal. EF = 68 ? 5% (2D 4-ch.) Grade I left ventricular diastolic dysfun ction. - The right ventricle is nor mal in size. Right ventricular systolic function is normal. - The visualized aorta is borderline dilated with a ma ximal dimension of 3.9 cm. - There is moderate aortic v alve stenosis caused by calcified valve. AV area is 1.11 cm? (0.69 cm?/m?) by continuity, VTI. The peak gr adient is 22 mmHg, the mean gradient is 12 mmHg and the dimensionless valve index is 0.43. Valve morphology is ?difficult to ascertain by limitations of this study. The valve appears nerve then ?gradients would suggest. Clinical correlation is suggested. - Mild degenerative changes of the mitral valve leafle ts with severe annular calcification. ASSESSMENT/PLAN: 1. Preop exam for internal medicine - ICD9: V72.83, ICD10: Z01.818 (primary diagnosis) She has been seen by her car diologist Dr. Iraheta, echocardiogram to be completed later today. From internal medicine perspective she is low risk for compl ications. ACS-NSQIP risk calculation Risk 2.7% for serious complicatio n -3.5% any complication. [facility] labwork showed possible UTI, culture not included, n o voiced symptoms today, consider treatment if indicated for UTI prior to surg bon. 2. Nonrheumatic aortic valve stenosis - ICD9: 424.1, ICD10: I35.0 see above 3. Acquired hypothyroidism - ICD9: 244.9, ICD10: E03.9 Most recent labwork within normal limits. 4. Controlled type 2 diabetes mellitus w ithout complication, without long-term current use of insulin (HCC) - ICD9: 250.00, ICD10: E11.9 Controlled, continue treatment unchanged 5. Essential hypertension - ICD9: 401.9, ICD10: I10 Controlled, continue treatment unchanged 6. Mixed hyperlipidemia - ICD9: 272.2, ICD10: E78.2 7. Iron deficiency anemia, unspecified iron deficiency anemi a type - ICD9: 280.9, ICD10: D50.9 currently without abnormalities 8. Pernicious anemia - ICD9: 281.0, ICD10: D51.0 Jake Fish APRN.LAB ASST Referring Provider: SELF [[id number]] Allergies As of Date: 02/05/2020 Noted Allergy Reaction MACROBID (NITROFURANTOIN MONOHYD/*01/10/2009 8 - GI Upset ADHESIVE TAPE (ROSINS) 03/03/2013 14 - Other: See Comments Comments: redness ATIVAN (LORAZEPAM) 12/27/2015 1 - Mental Status Change BENZODIAZEPINES 12/22/2002 1 - Mental Status Change Comments: ativan--made her loopy while in hospital CIPROFLOXACIN 04/27/2008 9 - Itching Comments: Oral Yeast Infection Thrush DEMEROL (MEPERIDINE HCL) 05/04/2005 LATEX 12/22/2002 2 - Rash Comments: Pt notes is a sensitivity, not allergy SULFA (SULFONAMIDE ANTIBIOTICS) 12/22/2002 14 - Other: See C omments Comments: Patient was treated for UTI in October 2011 after told nurse that reaction was just yeast infection (not vomiting as was previously listed) XANTHINES 12/22/2002 Comments: matti Date Reviewed: 02/05/2020 Reviewed by: Magali Choudhury LPN - Fully Assessed Reason for Visit: Pre-Op Exam [87] Primary Visit Diagnosis:Preop exam for internal medicine [Z0 1.818] Other Visit Diagnoses:Nonrheumatic aortic valve stenosis [I3 5.0] Acquired hypothyroidism [E03.9] Controlled type 2 diabetes mellitus without complication, without long-term current use of insulin (HCC) [E11.9] Essential hypertension [I10] Mixed hyperlipidemia [E78.2] Iron deficiency anemia, unspecified iron deficiency anemia type [D50.9] Pernicious anemia [D51.0] Gastroesophageal reflux disease, esophagitis presence not specified [K21.9] Urge incontinence [N39.41] Prescriptions as of 02/05/2020 Sig: PERFLUTREN LIPID MICROSPHERES* Inject 1.3 mL intravenously a * DOCUSATE SODIUM 100 MG CAPSULE Take 1 capsule by mouth twice * HYDROCODONE 5 MG-ACETAMINOPHE* Take 1 tablet by mouth every * HYDROCODONE 5 MG-ACETAMINOPHE* Take 1 tablet by mouth every * BUPROPION XL 150 MG TAB Take 1 tablet by mouth once d* GABAPENTIN 300 MG CAPSULE Take 2 capsules in the mornin* FAMOTIDINE 20 MG TABLET Take 1 tablet by mouth twice * LEVOTHYROXINE 50 MCG TABLET Take 1 tablet by mouth daily * METFORMIN 850 MG TABLET Take 1 tablet by mouth twice * METFORMIN 850 MG TABLET Take 1 tablet by mouth twice * CYANOCOBALAMIN (VIT B-12) 1,0* 1 mL IM every 3 weeks FUROSEMIDE 20 MG TABLET Take 1 tablet by mouth once d* LISINOPRIL 10 MG TABLET Take 1 tablet by mouth once d* NYSTATIN 100,000 UNIT/ML ORAL* One teaspoon swish in mouth f * CYCLOBENZAPRINE 10 MG TABLET Take 1 tablet by mouth daily * ATORVASTATIN 20 MG TABLET Take 1 tablet by mouth once d* MIRTAZAPINE 15 MG TABLET Take 1 tablet by mouth daily * PAROXETINE 10 MG TABLET Take 1 tablet by mouth once d* PERFLUTREN LIPID MICROSPHERES* Inject 1.3 mL intravenously a * CALCIUM 600 ORAL Take by mouth. VITAMIN E 400 UNIT CAPSULE Take 400 Units by mouth once * CYANOCOBALAMIN (VIT B-12) 500* Take by mouth once daily. CRANBERRY EXTRACT 200 MG CAPS* Take 800 mg by mouth. BLOOD SUGAR DIAGNOSTIC STRIPS Test blood sugar(s) 1 times d* GLIMEPIRIDE 1 MG TABLET Take 1 tablet by mouth daily * VITS,CALCIUM 21-IRON* Take by mouth. Pt is taking 2 * POTASSIUM CHLORIDE ER 10 MEQ * Take 1 capsule by mouth once * BLOOD-GLUCOSE METER KIT Glucose Meter of Choice - Kit* LANCETS Test blood sugar(s) 1 times d* BLOOD-GLUCOSE METER KIT Glucose Meter of Choice, insu* BLOOD SUGAR DIAGNOSTIC STRIPS Test blood sugar(s) 1x daily.* BD LUER-MARLIN SYRINGE 3 ML 23 X* USE FOR B-12 INJECTIONS EVERY * MULTIVITAMIN CAPSULE Take 1 capsule by mouth once * CHOLECALCIFEROL (VITAMIN D3) * Take 2 tablets by mouth once * MELATONIN 10 MG TABLET Take 10 mg by mouth daily at * ACYCLOVIR 5 % TOPICAL OINTMENT Apply 6 times daily for 7 day * LANCETS Use as instructed Problem List As Of Date 02/05/2020 Noted Resolved ROTATOR CUFF SYND NOS [M71.9, M67.919] 12/22/2002 Lateral epicondylitis of elbow [M77.10] 12/22/2002 0 JOINT PAIN-UP/ARM [M25.529] 02/02/2003 TRIGGER FINGER [M65.30] 03/30/2003 More... Follow-up examination following surgery [V67.0] 07/18/2004 1 Other tenosynovitis of hand and wrist [M65.849,*05/01/2005 1 Hyperlipidemia [E78.5] More... Iron deficiency anemia [D50.9] More... PERNICIOUS ANEMIA [D51.0] More... More... More... Diabetes mellitus type 2, controlled, without c*05/07/2005 More... Pain in soft tissues of limb [M79.609] 05/15/2005 04/18/2010 INSOMNIA NOS [G47.00] 07/25/2005 More... OSTEOPENIA [M89.9, M94.9] 10/23/2005 More... PEPTIC ULCER NOS [K27.9] 10/23/2005 Unspecified ventral hernia without mention of o*10/23/2005 1 DIVERTICULOSIS OF COLON W/O BLEED [K57.30] 10/23/2005 IRRITABLE COLON [K58.9] 11/28/2005 Abdominal pain, right upper quadrant [R10.11] 04/05/2006 RECURRENT UTI's [N39.0] 03/22/2008 04/18/2010 Fibromyalgia [M79.7] 06/29/2008 More... Abdominal pain, other specified site [R10.9] 06/29/200803/31 HEMORRHOIDS NOS [K64.9] 06/29/2008 DISLOC DIST RADIOULN-CLOSE [S63.016A] 07/13/2008 Abdominal pain, generalized [R10.84] 10/29/2008 04/18/2010 PULMONARY NODULE [R22.2] 01/17/2009 More... ATROPHIC VAGINITIS [N95.2] 01/17/2009 FELIPE (Generalized Anxiety Disorder) [F41.1] 03/20/2010 Cervicalgia [M54.2] 05/22/2010 Other physical therapy [CPY4279] 06/21/2010 01/06/2016 Other specified disorder of bladder [596.8] 07/25/201001/05 Recurrent UTI [N39.0] 07/03/2011 01/06/2016 Polypharmacy [Z79.899] 07/03/2011 Abnormality of urethral meatus [Q64.70] 07/16/2011 Generalized abdominal pain [R10.84] 07/16/2011 Urinary retention [R33.9] 07/16/2011 Hypothyroidism [E03.9] 01/07/2012 Urgency of urination [R39.15] 03/19/2012 Urge incontinence [N39.41] 03/19/2012 Trigger index finger of right hand [M65.321] 12/25/2012 DJD (degenerative joint disease) [M19.90] Marital conflict [Z63.0] 03/15/2014 Vitamin D deficiency [E55.9] 07/13/2014 Attention deficit hyperactivity disorder (ADHD)*02/10/2015 Bilateral low back pain with right-sided sciati*06/02/2015 Right hip pain [M25.551] 06/02/2015 Recurrent major depressive disorder, in partial*09/26/2015 Pain in right hip [M25.551] 10/25/2015 Trochanteric bursitis of both hips [M70.61, M70*10/25/2015 Chronic bilateral low back pain without sciatic*10/25/2015 Trigger little finger of left hand [M65.352] 01/23/2016 Trigger ring finger of left hand [M65.342] 01/23/2016 Trigger middle finger of left hand [M65.332] 01/23/2016 Bilateral hip pain [M25.551, M25.552] 09/20/2016 Greater trochanteric bursitis of both hips [M70*09/20/2016 Status post bariatric surgery [Z98.84] 10/11/2016 Dysuria [R30.0] 11/21/2017 Nonrheumatic aortic valve stenosis [I35.0] 12/19/2018 HTN, goal below 130/80 [I10] 12/19/2018 Lumbar back pain with radiculopathy affecting l*10/13/2019 Encounter Status:Closed by FISH JAKE VEGA on 02/05/20 progress on 2020-01 PROGRESS HNO ID: [id number] Normal 02-04-2020 [facility] Author: Clara Iraheta, DO [place] ([id number]) Service: ? Author Type: Physician Type: Progress Notes Filed: 02/04/2020 2:52 PM Note Text: [facility] [place] [facility] OUTPATIENT VISIT DATE February 04, 2020 PRIMARY CARE PHYSICIAN: Mati Montenegro MD [address] [place] [address] HISTORY OF PRESENT ILLNESS: Ms. Dennis is a 79 year old female. The patient returns f or follow-up secondary history of aortic stenosis in the moderate range r eports needing preoperative recommendations and treatment options prior to proposed back surgery. The patient denies chest discomfort, dyspnea, ortho pnea, paroxysmal nocturnal dyspnea, palpations, near-syncope or sy ncope. She has additional history of hypertension, hyperlipidemia and d iabetes. She has not had her echocardiogram checked in over a year. Her E KG performed today demonstrates normal sinus rhythm with low voltage but is otherwise normal. PLAN AND RECOMMENDATIONS: The patient remained stable without symptoms of suggest catrina na or cardiac decompensation. We will update an echo cardiac exam as soon as possible. She is apparently having surgical intervention to her back i n the next 2 working days. If her echocardiogram demonstrates stability o f her aortic stenosis, should be acceptable although at least moderate ri sk. Should there be progression, surgery may need to be delayed. We hav e made no additions or changes. Dietary and lifestyle medication were reemphasized to facilitate risk factor reduction. We will look for to see ing her in 6 months time regardless. Vitals: BP 110/62 Pulse 95 Ht 154.9 cm (5' 1) Wt 53.1 kg (117 lb) SpO2 96% BMI 22.11 kg/m? Physical Exam Constitutional: Appearance: She is well-developed. HENT: Head: Normocephalic and atraumatic. Eyes: Pupils: Pupils are equal, round, and reactive to light. Neck: Musculoskeletal: Normal range of motion and neck supple. Thyroid: No thyromegaly. Vascular: No JVD. Cardiovascular: Rate and Rhythm: Normal rate and regular rhythm. Heart sounds: Murmur present. Crescendo decrescendo systolic murmur present with a grade of 2/6. No friction rub. No gallop. Pulmonary: Effort: Pulmonary effort is normal. No respiratory distress. Breath sounds: Normal breath sounds. No wheezing or rales. Abdominal: General: Bowel sounds are normal. Palpations: Abdomen is soft. Musculoskeletal: Normal range of motion. Skin: General: Skin is warm and dry. Coloration: Skin is not pale. Neurological: Mental Status: She is alert and oriented to person, place, a nd time. Cranial Nerves: No cranial nerve deficit. Psychiatric: Behavior: Behavior normal. Thought Content: Thought content normal. Judgment: Judgment normal. Review of Systems Constitutional: Negative for activity change and fatigue. HENT: Negative for ear pain and facial swelling. Eyes: Negative for pain and discharge. Respiratory: Negative for chest tightness and shortness of b reath. Cardiovascular: Negative for chest pain, palpitations and le g swelling. Gastrointestinal: Negative for abdominal pain, blood in stoo l, nausea and vomiting. Endocrine: Negative for cold intolerance and heat intoleranc e. Genitourinary: Negative for frequency and hematuria. Musculoskeletal: Positive for gait problem and myalgias. Neg ative for arthralgias. Skin: Negative for color change, pallor and rash. Allergic/Immunologic: Negative for immunocompromised state. Neurological: Negative for dizziness, syncope, light-headedn ess and headaches. Hematological: Negative for adenopathy. Does not bruise/blee d easily. Psychiatric/Behavioral: Negative for confusion. The patient is not nervous/anxious. PAST MEDICAL HISTORY Diagnosis Date - Abdominal pain, generalized - Abdominal pain, right upper quadrant - Abdominal pain, unspecified site - Anxiety state, unspecified - Depressive disorder, not elsewhere classified - Disorder of bone and cartilage, unspecified osteopenia - Diverticulosis of colon (without mention of hemorrhage) - DJD (degenerative joint disease) - Essential hypertension 01/06/2016 - Fibromyalgia - Iron deficiency anemia, unspecified - Other and unspecified hyperlipidemia - Pernicious anemia - Type II or unspecified type diabetes mellitus without ment ion of complication, not stated as uncontrolled dx'd early 30s PAST SURGICAL HISTORY Procedure Laterality Date - COLONOSCOP W/ OR W/O BRS SPEC 01/29 Colonoscopy - COLONOSCOP W/ OR W/O BRSH SPEC 01/29, 04/05/06 - COLONOSCOPY W/BX 10/29/08 Diverticulosis - COLONOSCOPY W/BX 07/18/11 Repeat in - EGD W/O BRSH SPECIMEN W/BX 10/02, 04/05/06 - EGD W/O BRSH SPECIMEN W/BX 10/29/08 Patent gastrojejunostomy - EGD W/O OR W/BRUSH/WASH EGD - HYSTEROSCOPY, DIAGNOSTIC (SEPARATE 1997 Hysteroscopy - INCISE FINGER TENDON SHEATH 02/20/2013 Right index trigger finger release - LIGATE FALLOPIAN TUBE Tubal ligation - PAST SURGICAL HISTORY OF vagotomy - PAST SURGICAL HISTORY OF 2005 Right thumb and middle trigger finger release - PAST SURGICAL HISTORY OF Right shoulder - PAST SURGICAL HISTORY OF 1997 Right elbow - [facility] - PAST SURGICAL HISTORY OF Left 01-27-16 left middle, ring and small trigger finger releases - REMOVAL GALLBLADDER 1974 Cholecystectomy - REMV STOM,PART,DISTAL,GASTRODUOD 07/04/2000 Gastrectomy, partial, X-2 - REPAIR INCISIONAL HERNIA,REDUCIBLE 06/25/2001 Hernia repair, incisional - WRIST ARTHROSCOP,EXCIS TRIANG CART 2008 Right wrist Social History Tobacco Use - Smoking status: Former Smoker Packs/day: 1.00 Years: 5.00 Pack years: 5.00 Types: Cigarettes Quit date: 01/05/1971 Years since quittin.1 - Smokeless tobacco: Never Used Substance Use Topics - Alcohol use: Yes Comment: Rarely - Drug use: No FAMILY HISTORY Problem Relation Age of Onset - Stroke Mother - Hypertension Mother - Heart Mother - Stroke Father - Hypertension Father - Heart Brother - other (Lung Cancer) Brother mesothelioma - Heart Sister - other (Parkinson's Disease) Sister - Cancer Daughter melanoma - Ovarian cancer Sister diagnosed at Stage IV - Arthritis Sister Through out the whole family ALLERGIES Allergen Reactions - Macrobid [Nitrofura* GI Upset - Adhesive Tape (Lisa* Other: See Comments redness - Ativan [Lorazepam] Mental Status Change - Benzodiazepines Mental Status Change ativan--made her loopy while in hospital - Ciprofloxacin Itching Oral Yeast Infection Thrush - Demerol [Meperidine* - Latex Rash Pt notes is a sensitivity, not allergy - Sulfa (Sulfonamide * Other: See Comments Patient was treated for UTI in October 2011 after told nurse gregorio t reaction was just yeast infection (not vomiting as was previously lis rod) - Xanthines darvon CURRENT MEDICATIONS: docusate sodium (COLACE) 100 mg capsule Take 1 capsule by mo uth twice daily as needed for Constipation. While taking hydrocodone ( [place]) [START ON 02/06/2020] HYDROcodone-acetaminophen (NORCO) 5-325 mg per tablet Take 1 tablet by mouth every 6 hours as needed for Pain for up to 30 days. Do not start before February 06, 2020. HYDROcodone-acetaminophen (NORCO) 5-325 mg per tablet Take 1 tablet by mouth every 6 hours as needed for Pain for up to 30 days. buPROPion XL (WELLBUTRIN XL) 150 mg 24 hr tablet Take 1 tabl et by mouth once daily. ID# [id number] gabapentin (NEURONTIN) 300 mg capsule Take 2 capsules in the morning, 3 capsules at bedtime famotidine (PEPCID) 20 mg tablet Take 1 tablet by mouth twic e daily. take for one month while taking celocoxib levothyroxine (SYNTHROID) 50 mcg tablet Take 1 tablet by angela th daily before breakfast. ID# [id number] metFORMIN (GLUCOPHAGE) 850 mg tablet Take 1 tablet by mouth twice daily with meals. ID# [id number] metFORMIN (GLUCOPHAGE) 850 mg tablet Take 1 tablet by mouth twice daily with meals. ID# [id number] cyanocobalamin 1,000 mcg/mL 1 mL IM every 3 weeks furosemide (LASIX) 20 mg tablet Take 1 tablet by mouth once daily. as needed for leg swelling. lisinopril (ZESTRIL, PRINIVIL) 10 mg tablet Take 1 tablet by mouth once daily. As directed ID# [id number] nystatin (MYCOSTATIN) 100,000 unit/mL suspension One teaspoo n swish in mouth for several minutes then swallow (or expectorate) four times daily. Use until gone. cyclobenzaprine (FLEXERIL) 10 mg tablet Take 1 tablet by angela th daily at bedtime. ID# [id number] atorvastatin (LIPITOR) 20 mg tablet Take 1 tablet by mouth o nce daily. mirtazapine (REMERON) 15 mg tablet Take 1 tablet by mouth da eb at bedtime. ID# [id number] PARoxetine (PAXIL) 10 mg tablet Take 1 tablet by mouth once daily. ID# [id number] perflutren lipid microspheres (DEFINITY) 1.1 mg/mL injection (to be provided with echo procedure) Inject 1.3 mL intravenously as directed. calcium carbonate (CALCIUM 600 ORAL) Take by mouth. Vitamin E, dl, acetate, (VITAMIN E) 400 unit capsule Take 40 0 Units by mouth once daily. cyanocobalamin (VITAMIN B-12) 500 mcg tab tab(s) Take by angela th once daily. Cranberry Extract 200 mg cap Take 800 mg by mouth. blood sugar diagnostic (BLOOD GLUCOSE TEST) test strip Test blood sugar(s) 1 times daily. Dx: Type 2 DM - Controlled E11.9 Insulin: No glimepiride (AMARYL) 1 mg tablet Take 1 tablet by mouth miriam y with breakfast. ID# [id number] PNV Cmb#[id number] Acid ( COMPLETE) 14 mg iron- 4 00 mcg tab Take by mouth. Pt is taking 2 tablets daily potassium chloride SR (MICRO-K) 10 mEq CR capsule Take 1 cap emily by mouth once daily. once daily for three days then once daily when t aking furosemide. Blood-Glucose Meter monitoring kit Glucose Meter of Choice - Kit - Dx: Type 2 DM - Controlled E11.9 Test blood sugar 1 time daily. Lancets lancets Test blood sugar(s) 1 times daily. Dx: Type 2 DM - Controlled E11.9 Insulin: No Blood-Glucose Meter monitoring kit Glucose Meter of Choice, insurance preferred - Kit - Dx: Type 2 DM - Controlled E11.9 blood sugar diagnostic (BLOOD GLUCOSE TEST) test strip Test blood sugar(s) 1x daily. Dx: Controlled DM type 2. Insulin: No BD LUER-MARLIN SYRINGE 3 mL 23 x 1 syrg USE FOR B-12 INJECTION S EVERY 3 WEEKS OR DIRECTED Multivitamin capsule Take 1 capsule by mouth once daily. cholecalciferol (VITAMIN D) 1,000 unit tab tablet Take 2 tab lets by mouth once daily. melatonin 10 mg tab Take 10 mg by mouth daily at bedtime. acyclovir (ZOVIRAX) 5 % ointment Apply 6 times daily for 7 d ays for cold sores Lancets (ACCU-CHEK MULTICLIX LANCET) Misc lancets Use as ins tructed Clara Iraheta DO, FACC, FACOI Clinical and Preventive Cardiology Department of Medicine and Division of Cardiology, [facility] Staff Registered Representative, Kavita Sutton Department o f Cardiovascular Medicine/Heart and Vascular [place], [facility] Clinical visitor services information assistant Profressor of Medicine, [facility] ? [facility] Please note: This note has been produced using [employer] software and may contain errors related to that system including gram angelica, punctuation, spelling, words, gender and phrases that may be inappropriate. ecg complete on ECG COMPLETE NAME : SONNY DENNIS Normal 0 02-04-2020 [facility] PID : [id number] Alejandro quintana ([id number]) : 1940 Gender : Female Race : ORD : [id number] Procedure Date : Feb 04 2020 14:03:41 Edit Date : Feb 18 2020 08:55:01 Diagnosis:NORMAL SINUS RHYTHM LOW VOLTAGE QRS, CONSIDER PU LMONARY DISEASE, PERICARDIAL EFFUSION, OR NORMAL VARIANT BORDERLINE ECG Confirmed by MD IRAHETA GREGORY () on 02/18/2020 8:54:59 AM Ventricular Rate : 95 BPM Atrial Rate : 95 BPM P-R Interval : 132 ms QRS Duration : 60 ms Q-T Interval : 340 ms QTC Calculation(Bazett) : 427 ms P Cardinal : 73 degrees R Cardinal : 16 degrees T Cardinal : 47 degrees Test Reason : Location : 158 : [facility] Overread By : MD IRAHETA GREGORY Edited By : MD IRAHETA GREGORY Referred By : CLARA IRAHETA Acquired by : madi WATERS on 2020-02-04 CNPN Telephone (FAMPWS) Normal 02-04-[address] [place] [facility] SONNY DENNIS ([id number]) 1940 [facility] Date Time Provider Department ([id number]) 02/04/20 MATI MONTENEGRO During your visit today, we recorded the following informati on about you: Enrrique Wagner LPN 02/04/2020 4:32 PM Signed Efraín from Dr Florencio Ibrahim's office calling stati ng pt is having spine surgery 02/07. Pt saw Dr Iraheta in cardiology today and wants pt to do an updated echo which is scheduled tomorrow at [address] Iraheta wrote that as long as echo shows stability of aortic stenosis surgery matt uld be acceptable although it would be at least moderate risk. Office is questioning if you would feel comfortable writing on the form (pt has 8 am appt with you tomorro w) that she is cleared medically pending results of cardiac testing. She is afraid that with the testing done at 2 pm and not sure how late you w ould be in the office that it is cutting it close to have pt cleared. Please contact office if you are not comfortable in doing this. Form was previously faxed to Dr Wanda eaton. Call Efraín [phone] ext [phone] ok to ms. Enrrique Polo PN Jake Fish, NBA.LAB ASST 02/04/2020 5:[address] Iraheta office? I can complete the pro op form that notes she is seeing card iologist and completing an echo. I'm assuming he will send along his note as well to the surg aura Allergies As of Date: 02/04/2020 Noted Allergy Reaction MACROBID (NITROFURANTOIN MONOHYD/*01/10/2009 8 - GI Upset ADHESIVE TAPE (ROSINS) 03/03/2013 14 - Other: See Comments Comments: redness ATIVAN (LORAZEPAM) 12/27/2015 1 - Mental Status Change BENZODIAZEPINES 12/22/2002 1 - Mental Status Change Comments: ativan--made her loopy while in hospital CIPROFLOXACIN 04/27/2008 9 - Itching Comments: Oral Yeast Infection Thrush DEMEROL (MEPERIDINE HCL) 05/04/2005 LATEX 12/22/2002 2 - Rash Comments: Pt notes is a sensitivity, not allergy SULFA (SULFONAMIDE ANTIBIOTICS) 12/22/2002 14 - Other: See C omments Comments: Patient was treated for UTI in October 2011 after told nurse that reaction was just yeast infection (not vomiting as was previously listed) XANTHINES 12/22/2002 Comments: matti Date Reviewed: 02/04/2020 Reviewed by: Clara Iraheta DO - Fully Assessed Reason for Visit: Pre-Op Exam [87] Prescriptions as of 02/04/2020 Sig: PERFLUTREN LIPID MICROSPHERES* Inject 1.3 mL intravenously a * DOCUSATE SODIUM 100 MG CAPSULE Take 1 capsule by mouth twice * HYDROCODONE 5 MG-ACETAMINOPHE* Take 1 tablet by mouth every * HYDROCODONE 5 MG-ACETAMINOPHE* Take 1 tablet by mouth every * BUPROPION XL 150 MG TAB Take 1 tablet by mouth once d* GABAPENTIN 300 MG CAPSULE Take 2 capsules in the mornin* FAMOTIDINE 20 MG TABLET Take 1 tablet by mouth twice * LEVOTHYROXINE 50 MCG TABLET Take 1 tablet by mouth daily * METFORMIN 850 MG TABLET Take 1 tablet by mouth twice * METFORMIN 850 MG TABLET Take 1 tablet by mouth twice * CYANOCOBALAMIN (VIT B-12) 1,0* 1 mL IM every 3 weeks FUROSEMIDE 20 MG TABLET Take 1 tablet by mouth once d* LISINOPRIL 10 MG TABLET Take 1 tablet by mouth once d* NYSTATIN 100,000 UNIT/ML ORAL* One teaspoon swish in mouth f * CYCLOBENZAPRINE 10 MG TABLET Take 1 tablet by mouth daily * ATORVASTATIN 20 MG TABLET Take 1 tablet by mouth once d* MIRTAZAPINE 15 MG TABLET Take 1 tablet by mouth daily * PAROXETINE 10 MG TABLET Take 1 tablet by mouth once d* PERFLUTREN LIPID MICROSPHERES* Inject 1.3 mL intravenously a * CALCIUM 600 ORAL Take by mouth. VITAMIN E 400 UNIT CAPSULE Take 400 Units by mouth once * CYANOCOBALAMIN (VIT B-12) 500* Take by mouth once daily. CRANBERRY EXTRACT 200 MG CAPS* Take 800 mg by mouth. BLOOD SUGAR DIAGNOSTIC STRIPS Test blood sugar(s) 1 times d* GLIMEPIRIDE 1 MG TABLET Take 1 tablet by mouth daily * VITS,CALCIUM 21-IRON* Take by mouth. Pt is taking 2 * POTASSIUM CHLORIDE ER 10 MEQ * Take 1 capsule by mouth once * BLOOD-GLUCOSE METER KIT Glucose Meter of Choice - Kit* LANCETS Test blood sugar(s) 1 times d* BLOOD-GLUCOSE METER KIT Glucose Meter of Choice, insu* BLOOD SUGAR DIAGNOSTIC STRIPS Test blood sugar(s) 1x daily.* BD LUER-MARLIN SYRINGE 3 ML 23 X* USE FOR B-12 INJECTIONS EVERY * MULTIVITAMIN CAPSULE Take 1 capsule by mouth once * CHOLECALCIFEROL (VITAMIN D3) * Take 2 tablets by mouth once * MELATONIN 10 MG TABLET Take 10 mg by mouth daily at * ACYCLOVIR 5 % TOPICAL OINTMENT Apply 6 times daily for 7 day * LANCETS Use as instructed Problem List As Of Date 02/04/2020 Noted Resolved ROTATOR CUFF SYND NOS [M71.9, M67.919] 12/22/2002 Lateral epicondylitis of elbow [M77.10] 12/22/2002 0 JOINT PAIN-UP/ARM [M25.529] 02/02/2003 TRIGGER FINGER [M65.30] 03/30/2003 More... Follow-up examination following surgery [V67.0] 07/18/2004 1 Other tenosynovitis of hand and wrist [M65.849,*05/01/2005 1 Hyperlipidemia [E78.5] More... Iron deficiency anemia [D50.9] More... PERNICIOUS ANEMIA [D51.0] More... More... More... Diabetes mellitus type 2, controlled, without c*05/07/2005 More... Pain in soft tissues of limb [M79.609] 05/15/2005 04/18/2010 INSOMNIA NOS [G47.00] 07/25/2005 More... OSTEOPENIA [M89.9, M94.9] 10/23/2005 More... PEPTIC ULCER NOS [K27.9] 10/23/2005 Unspecified ventral hernia without mention of o*10/23/2005 1 DIVERTICULOSIS OF COLON W/O BLEED [K57.30] 10/23/2005 IRRITABLE COLON [K58.9] 11/28/2005 Abdominal pain, right upper quadrant [R10.11] 04/05/2006 RECURRENT UTI's [N39.0] 03/22/2008 04/18/2010 Fibromyalgia [M79.7] 06/29/2008 More... Abdominal pain, other specified site [R10.9] 06/29/200803/31 HEMORRHOIDS NOS [K64.9] 06/29/2008 DISLOC DIST RADIOULN-CLOSE [S63.016A] 07/13/2008 Abdominal pain, generalized [R10.84] 10/29/2008 04/18/2010 PULMONARY NODULE [R22.2] 01/17/2009 More... ATROPHIC VAGINITIS [N95.2] 01/17/2009 FELIPE (Generalized Anxiety Disorder) [F41.1] 03/20/2010 Cervicalgia [M54.2] 05/22/2010 Other physical therapy [CGA1325] 06/21/2010 01/06/2016 Other specified disorder of bladder [596.8] 07/25/201001/05 Recurrent UTI [N39.0] 07/03/2011 01/06/2016 Polypharmacy [Z79.899] 07/03/2011 Abnormality of urethral meatus [Q64.70] 07/16/2011 Generalized abdominal pain [R10.84] 07/16/2011 Urinary retention [R33.9] 07/16/2011 Hypothyroidism [E03.9] 01/07/2012 Urgency of urination [R39.15] 03/19/2012 Urge incontinence [N39.41] 03/19/2012 Trigger index finger of right hand [M65.321] 12/25/2012 DJD (degenerative joint disease) [M19.90] Marital conflict [Z63.0] 03/15/2014 Vitamin D deficiency [E55.9] 07/13/2014 Attention deficit hyperactivity disorder (ADHD)*02/10/2015 Bilateral low back pain with right-sided sciati*06/02/2015 Right hip pain [M25.551] 06/02/2015 Recurrent major depressive disorder, in partial*09/26/2015 Pain in right hip [M25.551] 10/25/2015 Trochanteric bursitis of both hips [M70.61, M70*10/25/2015 Chronic bilateral low back pain without sciatic*10/25/2015 Trigger little finger of left hand [M65.352] 01/23/2016 Trigger ring finger of left hand [M65.342] 01/23/2016 Trigger middle finger of left hand [M65.332] 01/23/2016 Bilateral hip pain [M25.551, M25.552] 09/20/2016 Greater trochanteric bursitis of both hips [M70*09/20/2016 Status post bariatric surgery [Z98.84] 10/11/2016 Dysuria [R30.0] 11/21/2017 Nonrheumatic aortic valve stenosis [I35.0] 12/19/2018 HTN, goal below 130/80 [I10] 12/19/2018 Lumbar back pain with radiculopathy affecting l*10/13/2019 Encounter Status:Closed by MAGALI CHOUDHURY LPN on 02/05/20 cnov on 2020-02-04 CNOV Office Visit (GAETANO) Normal 02-04-[address] [place] [facility] SONNY DENNIS ([id number]) 1940 [facility] Time Provider Department ([id number]) 02/04/20 2:00 PM CLARA IRAHETA During your visit today, we recorded the following informati on about you: Pulse Blood pressure Weight Height 95/minute 110/62 53.1 kg 1.549 m Clara Iraheta DO, 02/04/2020 2:52 PM [facility] [place] [facility] OUTPATIENT VISIT DATE February 04, 2020 PRIMARY CARE PHYSICIAN: Mati Montenegro MD [address] [place] [address] HISTORY OF PRESENT ILLNESS: Ms. Dennis is a 79 year old female. The patient returns f or follow-up secondary history of aortic stenosis in the moderate range r eports needing preoperative recommendations and treatment options prior to proposed back surgery. The patient denies chest discomfort, dyspnea, orthopnea, paroxysmal nocturnal dyspnea, palpations, near-syncope or syncope. She has additional history of hypertension, hyperlipidemia and diabetes. She carreno s not had her echocardiogram checked in over a year. Her EKG performed t isabel demonstrates normal sinus rhythm with low voltage but is otherwise normal . PLAN AND RECOMMENDATIONS: The patient remained stable without symptoms of suggest catrina na or cardiac decompensation. We will update an echo cardiac exam as soon as possible. She is apparently having surgical intervention to her back in the next 2 working days. If her echocardiogram demonstrates stability of her ao rtic stenosis, should be acceptable although at least moderate risk. Should there be progression, surgery may need to be delayed. We have made no additions or changes. Dietary and lifestyle medicatio n were reemphasized to facilitate risk factor reduction. We will look for to seeing her in 6 months time regardless. Vitals: BP 110/62 Pulse 95 Ht 154.9 cm (5' 1) Wt 53.1 kg (117 lb) SpO2 96% BMI 22.11 kg/m? Physical Exam Constitutional: Appearance: She is well-developed. HENT: Head: Normocephalic and atraumatic. Eyes: Pupils: Pupils are equal, round, and reactive to light. Neck: Musculoskeletal: Normal range of motion and neck supple. Thyroid: No thyromegaly. Vascular: No JVD. Cardiovascular: Rate and Rhythm: Normal rate and regular rhythm. Heart sounds: Murmur present. Crescendo decrescendo systolic murmur present with a grade of 2/6. No friction rub. No gallop. Pulmonary: Effort: Pulmonary effort is normal. No respiratory distress. Breath sounds: Normal breath sounds. No wheezing or rales. Abdominal: General: Bowel sounds are normal. Palpations: Abdomen is soft. Musculoskeletal: Normal range of motion. Skin: General: Skin is warm and dry. Coloration: Skin is not pale. Neurological: Mental Status: She is alert and oriented to person, place, a nd time. Cranial Nerves: No cranial nerve deficit. Psychiatric: Behavior: Behavior normal. Thought Content: Thought content normal. Judgment: Judgment normal. Review of Systems Constitutional: Negative for activity change and fatigue. HENT: Negative for ear pain and facial swelling. Eyes: Negative for pain and discharge. Respiratory: Negative for chest tightness and shortness of b reath. Cardiovascular: Negative for chest pain, palpitations and le g swelling. Gastrointestinal: Negative for abdominal pain, blood in stoo l, nausea and vomiting. Endocrine: Negative for cold intolerance and heat intoleranc e. Genitourinary: Negative for frequency and hematuria. Musculoskeletal: Positive for gait problem and myalgias. Neg ative for arthralgias. Skin: Negative for color change, pallor and rash. Allergic/Immunologic: Negative for immunocompromised state. Neurological: Negative for dizziness, sy ncope, light-headedness and headaches. Hematological: Negative for adenopathy. Does not bruise/blee d easily. Psychiatric/Behavioral: Negative for confusion. The patient is not nervous/anxious. PAST MEDICAL HISTORY Diagnosis Date - Abdominal pain, generalized - Abdominal pain, right upper quadrant - Abdominal pain, unspecified site - Anxiety state, unspecified - Depressive disorder, not elsewhere classified - Disorder of bone and cartilage, unspecified osteopenia - Diverticulosis of colon (without mention of hemorrhage) - DJD (degenerative joint disease) - Essential hypertension 01/06/2016 - Fibromyalgia - Iron deficiency anemia, unspecified - Other and unspecified hyperlipidemia - Pernicious anemia - Type II or unspecified type diabetes mellitus without ment ion of complication, not stated as uncontrolled dx'd early 30s PAST SURGICAL HISTORY Procedure Laterality Date - COLONOSCOP W/ OR W/O [facility] SPEC 01/29 Colonoscopy - COLONOSCOP W/ OR W/O [facility] SPEC 01/29, 04/05/06 - COLONOSCOPY W/BX 10/29/08 Diverticulosis - COLONOSCOPY W/BX 07/18/11 Repeat in - EGD W/O [facility] SPECIMEN W/BX 10/02, 04/05/06 - EGD W/O [facility] SPECIMEN W/BX 10/29/08 Patent gastrojejunostomy - EGD W/O OR W/BRUSH/WASH EGD - HYSTEROSCOPY, DIAGNOSTIC (SEPARATE 1997 Hysteroscopy - INCISE FINGER TENDON SHEATH 02/20/2013 Right index trigger finger release - LIGATE FALLOPIAN TUBE Tubal ligation - PAST SURGICAL HISTORY OF vagotomy - PAST SURGICAL HISTORY OF 2005 Right thumb and middle trigger finger release - PAST SURGICAL HISTORY OF Right shoulder - PAST SURGICAL HISTORY OF 1997 Right elbow - [facility] - PAST SURGICAL HISTORY OF Left 29-16 left middle, ring and small trigger finger releases - REMOVAL GALLBLADDER 1974 Cholecystectomy - REMV STOM,PART,DISTAL,GASTRODUOD 07/04/2000 Gastrectomy, partial, X-2 - REPAIR INCISIONAL HERNIA,REDUCIBLE 06/25/2001 Hernia repair, incisional - WRIST ARTHROSCOP,EXCIS TRIANG CART 2008 Right wrist Social History Tobacco Use - Smoking status: Former Smoker Packs/day: 1.00 Years: 5.00 Pack years: 5.00 Types: Cigarettes Quit date: 01/05/1971 Years since quittin.1 - Smokeless tobacco: Never Used Substance Use Topics - Alcohol use: Yes Comment: Rarely - Drug use: No FAMILY HISTORY Problem Relation Age of Onset - Stroke Mother - Hypertension Mother - Heart Mother - Stroke Father - Hypertension Father - Heart Brother - other (Lung Cancer) Brother mesothelioma - Heart Sister - other (Parkinson's Disease) Sister - Cancer Daughter melanoma - Ovarian cancer Sister diagnosed at Stage IV - Arthritis Sister Through out the whole family ALLERGIES Allergen Reactions - Macrobid [Nitrofura* GI Upset - Adhesive Tape (Lisa* Other: See Comments redness - Ativan [Lorazepam] Mental Status Change - Benzodiazepines Mental Status Change ativan--made her loopy while in hospital - Ciprofloxacin Itching Oral Yeast Infection Thrush - Demerol [Meperidine* - Latex Rash Pt notes is a sensitivity, not allergy - Sulfa (Sulfonamide * Other: See Comments Patient was treated for UTI in October 2011 after told nurse gregorio t reaction was just yeast infection (not vomiting as was previously listed) - Xanthines darvon CURRENT MEDICATIONS: docusate sodium (COLACE) 100 mg capsule Take 1 capsule by mouth twice daily as needed for Constipation. While taking hydrocodone ([place]) [START ON 02/06/2020] HYDROcodone-acetamin ophen (NORCO) 5-325 mg per tablet Take 1 tablet by mouth every 6 hours as needed for Pain for up to 30 days. Do not start before February 06, 2020. HYDROcodone-acetaminophen (NORCO) 5-325 mg per tablet Take 1 tablet by mouth every 6 hours as needed for Pain for up to 30 days. buPROPion XL (WELLBUTRIN XL) 150 mg 24 hr tablet Take 1 tablet by mouth once daily. ID# [id number] gabapentin (NEURONTIN) 300 mg capsule Take 2 capsules in the morning, 3 capsules at bedtime famotidine (PEPCID) 20 mg tablet Take 1 tablet b y mouth twice daily. take for one month while taking celocoxib levothyroxine (SYNTHROID) 50 mcg tablet Take 1 tablet by m outh daily before breakfast. ID# [id number] metFORMIN (GLUCOPHAGE) 850 mg tablet Take 1 tablet by mouth twice daily with meals. ID# [id number] metFORMIN (GLUCOPHAGE) 850 mg tablet Take 1 tablet by mouth twice daily with meals. ID# [id number] cyanocobalamin 1,000 mcg/mL 1 mL IM every 3 weeks furosemide (LASIX) 20 mg tablet Take 1 tablet by mouth once daily. as needed for leg swelling. lisinopril (ZESTRIL, PRINIVIL) 10 mg tab let Take 1 tablet by mouth once daily. As directed ID# [id number] nystatin (MYCOSTATIN) 100,000 unit/mL suspension One t easpoon swish in mouth for several minutes then swallow (or expectorate ) four times daily. Use until gone. cyclobenzaprine (FLEXERIL) 10 mg tablet Take 1 tablet by angela th daily at bedtime. ID# [id number] atorvastatin (LIPITOR) 20 mg tablet Take 1 tablet by mouth o nce daily. mirtazapine (REMERON) 15 mg tablet Take 1 tablet by mouth daily at bedtime. ID# [id number] PARoxetine (PAXIL) 10 mg tab let Take 1 tablet by mouth once daily. ID# [id number] perflutren lipid microspheres (DEFINITY) 1.1 mg/mL inj ection (to be provided with echo procedure) Inject 1.3 mL intravenously as directed . calcium carbonate (CALCIUM 600 ORAL) Take by mouth. Vitamin E, dl, acetate, (VITAMIN E) 400 unit capsule T génesis 400 Units by mouth once daily. cyanocobalamin (VITAMIN B-12) 500 mcg tab tab(s) Take by angela th once daily. Cranberry Extract 200 mg cap Take 800 mg by mouth. blood sugar diagnostic (BLOOD GLUCOSE TEST) test strip Test blood sugar(s) 1 times daily. Dx: Type 2 DM - Controlled E11.9 Insulin: No glimepiride (AMARYL) 1 mg tablet Take 1 tablet b y mouth daily with breakfast. ID# [id number] PNV Cmb#[id number] Acid ( COM PLETE) 14 mg iron- 400 mcg tab Take by mouth. Pt is taking 2 tablets daily potassium chloride SR (MICRO-K) 10 mEq C R capsule Take 1 capsule by mouth once daily. once daily for three days then once daily when taking furosemide. Blood-Glucose Meter monitoring kit Glucose Meter of Choice - Kit - Dx: Type 2 DM - Controlled E11.9 Test blood sugar 1 time daily. Lancets lancets Test blood sugar(s) 1 times miriam y. Dx: Type 2 DM - Controlled E11.9 Insulin: No Blood-Glucose Meter monitori ng kit Glucose Meter of Choice, insurance preferred - Kit - Dx: Type 2 DM - Controlled E11.9 blood sugar diagnostic (BLOOD GLUCOSE TEST) test strip Test blood sugar(s) 1x daily. Dx: Controlled DM type 2. Insulin: No BD LUER-MARLIN SYRINGE 3 mL 23 x 1 syrg US E FOR B-12 INJECTIONS EVERY 3 WEEKS OR DIRECTED Multivitamin capsule Take 1 capsule by mouth once daily. cholecalciferol (VITAMIN D) 1,000 unit t ab tablet Take 2 tablets by mouth once daily. melatonin 10 mg tab Take 10 mg by mouth daily at bedtime. acyclovir (ZOVIRAX) 5 % ointment Apply 6 times daily for 7 days for cold sores Lancets (ACCU-CHEK MULTICLIX LANCET) Misc lancets Use as ins tructed Clara Iraheta, DO, FACC, FACOI Clinical and Preventive Cardiology Department of Medicine and Division of Cardiology, [facility] Staff Registered Representative, [facility] Depart ment of Cardiovascular Medicine/Heart and Vascular [place], [facility] Clinical visitor services information assistant Profressor of Medicine, [facility] ? [facility] Please note: This note has been produced using speech recognition software and may contain errors related to that system including varinder, punctuation, spelling, words, gender and phrases that may be inappropriat e. Referring Provider: CLARA IRAHETA [[id number]] Allergies As of Date: 02/04/2020 Noted Allergy Reaction MACROBID (NITROFURANTOIN MONOHYD/*01/10/2009 8 - GI Upset ADHESIVE TAPE (ROSINS) 03/03/2013 14 - Other: See Comments Comments: redness ATIVAN (LORAZEPAM) 12/27/2015 1 - Mental Status Change BENZODIAZEPINES 12/22/2002 1 - Mental Status Change Comments: ativan--made her loopy while in hospital CIPROFLOXACIN 04/27/2008 9 - Itching Comments: Oral Yeast Infection Thrush DEMEROL (MEPERIDINE HCL) 05/04/2005 LATEX 12/22/2002 2 - Rash Comments: Pt notes is a sensitivity, not allergy SULFA (SULFONAMIDE ANTIBIOTICS) 12/22/2002 14 - Other: See C amina Comments: Patient was treated for UTI in October 2011 after told nurse that reaction was just yeast infection (not vomiting as was previously listed) XANTHINES 12/22/2002 Comments: darvon Date Reviewed: 02/04/2020 Reviewed by: Clara Iraheta DO - Fully Assessed Reason for Visit: CARD New Patient Consult [1228] Primary Visit Diagnosis:Nonrheumatic aortic valve stenosis [ I35.0] Other Visit Diagnoses:HTN, goal below 130/80 [I10] Mixed hyperlipidemia [E78.2] Preop cardiovascular exam [Z01.810] Order(s):ECG COMPLETE [ECG01] Order #: [id number] FUTURE ECHO [732960] Order #: [id number]: 1 FUTURE perflutren lipid microspheres (DEFINITY) 1.1 mg/mL injection (to be provided with echo procedure)Inject 1.3 mL intravenously as directed. Administration Instructions: If no IV access, insert saline lock prior to administering contrast. Discontinue saline lock post exam . If patient has central line or IVAD, may access for administrat ion according to line specific nursing protocol. Once exam is co mplete, flush line and de-access per line specific nursing protocol. Diluted IV Bolus: Dilute 1.3 ml of Definity with 8.7 ml of preservative-free saline.Disp: 1.3 mLRfl: 0 Prescriptions as of 02/04/2020 Sig: DOCUSATE SODIUM 100 MG CAPSULE Take 1 capsule by mouth twice * HYDROCODONE 5 MG-ACETAMINOPHE* Take 1 tablet by mouth every * HYDROCODONE 5 MG-ACETAMINOPHE* Take 1 tablet by mouth every * BUPROPION XL 150 MG TAB Take 1 tablet by mouth once d* GABAPENTIN 300 MG CAPSULE Take 2 capsules in the mornin* FAMOTIDINE 20 MG TABLET Take 1 tablet by mouth twice * LEVOTHYROXINE 50 MCG TABLET Take 1 tablet by mouth daily * METFORMIN 850 MG TABLET Take 1 tablet by mouth twice * METFORMIN 850 MG TABLET Take 1 tablet by mouth twice * CYANOCOBALAMIN (VIT B-12) 1,0* 1 mL IM every 3 weeks FUROSEMIDE 20 MG TABLET Take 1 tablet by mouth once d* LISINOPRIL 10 MG TABLET Take 1 tablet by mouth once d* NYSTATIN 100,000 UNIT/ML ORAL* One teaspoon swish in mouth f * CYCLOBENZAPRINE 10 MG TABLET Take 1 tablet by mouth daily * ATORVASTATIN 20 MG TABLET Take 1 tablet by mouth once d* MIRTAZAPINE 15 MG TABLET Take 1 tablet by mouth daily * PAROXETINE 10 MG TABLET Take 1 tablet by mouth once d* PERFLUTREN LIPID MICROSPHERES* Inject 1.3 mL intravenously a * CALCIUM 600 ORAL Take by mouth. VITAMIN E 400 UNIT CAPSULE Take 400 Units by mouth once * CYANOCOBALAMIN (VIT B-12) 500* Take by mouth once daily. CRANBERRY EXTRACT 200 MG CAPS* Take 800 mg by mouth. BLOOD SUGAR DIAGNOSTIC STRIPS Test blood sugar(s) 1 times d* GLIMEPIRIDE 1 MG TABLET Take 1 tablet by mouth daily * VITS,CALCIUM 21-IRON* Take by mouth. Pt is taking 2 * POTASSIUM CHLORIDE ER 10 MEQ * Take 1 capsule by mouth once * BLOOD-GLUCOSE METER KIT Glucose Meter of Choice - Kit* LANCETS Test blood sugar(s) 1 times d* BLOOD-GLUCOSE METER KIT Glucose Meter of Choice, insu* BLOOD SUGAR DIAGNOSTIC STRIPS Test blood sugar(s) 1x daily.* BD LUER-MARLIN SYRINGE 3 ML 23 X* USE FOR B-12 INJECTIONS EVERY * MULTIVITAMIN CAPSULE Take 1 capsule by mouth once * CHOLECALCIFEROL (VITAMIN D3) * Take 2 tablets by mouth once * MELATONIN 10 MG TABLET Take 10 mg by mouth daily at * ACYCLOVIR 5 % TOPICAL OINTMENT Apply 6 times daily for 7 day * LANCETS Use as instructed PERFLUTREN LIPID MICROSPHERES* Inject 1.3 mL intravenously a * Problem List As Of Date 02/04/2020 Noted Resolved ROTATOR CUFF SYND NOS [M71.9, M67.919] 12/22/2002 Lateral epicondylitis of elbow [M77.10] 12/22/2002 0 JOINT PAIN-UP/ARM [M25.529] 02/02/2003 TRIGGER FINGER [M65.30] 03/30/2003 More... Follow-up examination following surgery [V67.0] 07/18/2004 1 Other tenosynovitis of hand and wrist [M65.849,*05/01/2005 1 Hyperlipidemia [E78.5] More... Iron deficiency anemia [D50.9] More... PERNICIOUS ANEMIA [D51.0] More... More... More... Diabetes mellitus type 2, controlled, without c*05/07/2005 More... Pain in soft tissues of limb [M79.609] 05/15/2005 04/18/2010 INSOMNIA NOS [G47.00] 07/25/2005 More... OSTEOPENIA [M89.9, M94.9] 10/23/2005 More... PEPTIC ULCER NOS [K27.9] 10/23/2005 Unspecified ventral hernia without mention of o*10/23/2005 1 DIVERTICULOSIS OF COLON W/O BLEED [K57.30] 10/23/2005 IRRITABLE COLON [K58.9] 11/28/2005 Abdominal pain, right upper quadrant [R10.11] 04/05/2006 RECURRENT UTI's [N39.0] 03/22/2008 04/18/2010 Fibromyalgia [M79.7] 06/29/2008 More... Abdominal pain, other specified site [R10.9] 06/29/200803/31 HEMORRHOIDS NOS [K64.9] 06/29/2008 DISLOC DIST RADIOULN-CLOSE [S63.016A] 07/13/2008 Abdominal pain, generalized [R10.84] 10/29/2008 04/18/2010 PULMONARY NODULE [R22.2] 01/17/2009 More... ATROPHIC VAGINITIS [N95.2] 01/17/2009 FELIPE (Generalized Anxiety Disorder) [F41.1] 03/20/2010 Cervicalgia [M54.2] 05/22/2010 Other physical therapy [SHW9701] 06/21/2010 01/06/2016 Other specified disorder of bladder [596.8] 07/25/201001/05 Recurrent UTI [N39.0] 07/03/2011 01/06/2016 Polypharmacy [Z79.899] 07/03/2011 Abnormality of urethral meatus [Q64.70] 07/16/2011 Generalized abdominal pain [R10.84] 07/16/2011 Urinary retention [R33.9] 07/16/2011 Hypothyroidism [E03.9] 01/07/2012 Urgency of urination [R39.15] 03/19/2012 Urge incontinence [N39.41] 03/19/2012 Trigger index finger of right hand [M65.321] 12/25/2012 DJD (degenerative joint disease) [M19.90] Marital conflict [Z63.0] 03/15/2014 Vitamin D deficiency [E55.9] 07/13/2014 Attention deficit hyperactivity disorder (ADHD)*02/10/2015 Bilateral low back pain with right-sided sciati*06/02/2015 Right hip pain [M25.551] 06/02/2015 Recurrent major depressive disorder, in partial*09/26/2015 Pain in right hip [M25.551] 10/25/2015 Trochanteric bursitis of both hips [M70.61, M70*10/25/2015 Chronic bilateral low back pain without sciatic*10/25/2015 Trigger little finger of left hand [M65.352] 01/23/2016 Trigger ring finger of left hand [M65.342] 01/23/2016 Trigger middle finger of left hand [M65.332] 01/23/2016 Bilateral hip pain [M25.551, M25.552] 09/20/2016 Greater trochanteric bursitis of both hips [M70*09/20/2016 Status post bariatric surgery [Z98.84] 10/11/2016 Dysuria [R30.0] 11/21/2017 Nonrheumatic aortic valve stenosis [I35.0] 12/19/2018 HTN, goal below 130/80 [I10] 12/19/2018 Lumbar back pain with radiculopathy affecting l*10/13/2019 Prescriptions ordered this encounter Disp Refills Start End PERFLUTREN LIPID MICROSPHERES 1.1 MG* 1.3 * 0 02/04/202011/2020 Class: In Office Route: INTRAVENOUS Sig: Inject 1.3 mL intravenously as directed. Ad ministration Instructions: If no IV access, insert saline lock prior to administering cont rast. Discontinue saline lock post exam. If patient has central li ne or IVAD, may access for administration according to line specific chidi sing protocol. Once exam is complete, flush line and de-access pe r line specific nursing protocol. Diluted IV Bolus: Dilute 1.3 ml of Definity with 8.7 ml of preservative-free saline. Disposition: Return in about 6 months (around 08/06/2020), or if symptoms worsen or fail to improve, for Follow-up. Follow-up and Disposition History Recorded Letter Text Encounter Status:Closed by CLARA IRAHETA on 02/04/20 madi on 2020-01-29 [facility] Telephone (GAETANO) Normal 01-29-[address] [facility] SONNY DENNIS ([id number]) 1940 [facility] Date Time Provider Department ([id number]) 01/29/20 CLARA IRAHETA During your visit today, we recorded the following informati on about you: Mariano Elizabeth, RN, RN 01/29/2020 3:16 PM Signed Received cardiac risk assessment request. Forward to Ivelisse Aquino for review. Magdalena Ellison RN, RN 02/04/2020 3:59 PM Signed Sharon from Dr Ibrahim's office wants cardiac clear ance for pt's surgery Saturday. Informed her pt has echo tomorrow at 2pm to determine her ri sk assessment. Request that we fax results with Dr Levin s recommendations written on it after. Fax number is [phone] Phone number [phone] Magdalena Ellison, RN, RN 02/05/2020 4:09 PM Signed Faxed signed form and all documentation to provided number. Allergies As of Date: 01/29/2020 Noted Allergy Reaction MACROBID (NITROFURANTOIN MONOHYD/*01/10/2009 8 - GI Upset ADHESIVE TAPE (ROSINS) 03/03/2013 14 - Other: See Comments Comments: redness ATIVAN (LORAZEPAM) 12/27/2015 1 - Mental Status Change BENZODIAZEPINES 12/22/2002 1 - Mental Status Change Comments: ativan--made her loopy while in hospital CIPROFLOXACIN 04/27/2008 9 - Itching Comments: Oral Yeast Infection Thrush DEMEROL (MEPERIDINE HCL) 05/04/2005 LATEX 12/22/2002 2 - Rash Comments: Pt notes is a sensitivity, not allergy SULFA (SULFONAMIDE ANTIBIOTICS) 12/22/2002 14 - Other: See C omments Comments: Patient was treated for UTI in October 2011 after told nurse that reaction was just yeast infection (not vomiting as was previously listed) XANTHINES 12/22/2002 Comments: darvon Date Reviewed: 01/07/2020 Reviewed by: Jake ([employer]) Abe - Fully Assessed Reason for Visit: cardiac risk assessment [Other] Cmt: [facility] Prescriptions as of 01/29/2020 Sig: DOCUSATE SODIUM 100 MG CAPSULE Take 1 capsule by mouth twice * HYDROCODONE 5 MG-ACETAMINOPHE* Take 1 tablet by mouth every * HYDROCODONE 5 MG-ACETAMINOPHE* Take 1 tablet by mouth every * BUPROPION XL 150 MG TAB Take 1 tablet by mouth once d* GABAPENTIN 300 MG CAPSULE Take 2 capsules in the mornin* FAMOTIDINE 20 MG TABLET Take 1 tablet by mouth twice * LEVOTHYROXINE 50 MCG TABLET Take 1 tablet by mouth daily * METFORMIN 850 MG TABLET Take 1 tablet by mouth twice * METFORMIN 850 MG TABLET Take 1 tablet by mouth twice * CYANOCOBALAMIN (VIT B-12) 1,0* 1 mL IM every 3 weeks FUROSEMIDE 20 MG TABLET Take 1 tablet by mouth once d* LISINOPRIL 10 MG TABLET Take 1 tablet by mouth once d* NYSTATIN 100,000 UNIT/ML ORAL* One teaspoon swish in mouth f * CYCLOBENZAPRINE 10 MG TABLET Take 1 tablet by mouth daily * ATORVASTATIN 20 MG TABLET Take 1 tablet by mouth once d* MIRTAZAPINE 15 MG TABLET Take 1 tablet by mouth daily * PAROXETINE 10 MG TABLET Take 1 tablet by mouth once d* PERFLUTREN LIPID MICROSPHERES* Inject 1.3 mL intravenously a * CALCIUM 600 ORAL Take by mouth. VITAMIN E 400 UNIT CAPSULE Take 400 Units by mouth once * CYANOCOBALAMIN (VIT B-12) 500* Take by mouth once daily. CRANBERRY EXTRACT 200 MG CAPS* Take 800 mg by mouth. BLOOD SUGAR DIAGNOSTIC STRIPS Test blood sugar(s) 1 times d* GLIMEPIRIDE 1 MG TABLET Take 1 tablet by mouth daily * VITS,CALCIUM 21-IRON* Take by mouth. Pt is taking 2 * POTASSIUM CHLORIDE ER 10 MEQ * Take 1 capsule by mouth once * BLOOD-GLUCOSE METER KIT Glucose Meter of Choice - Kit* LANCETS Test blood sugar(s) 1 times d* BLOOD-GLUCOSE METER KIT Glucose Meter of Choice, insu* BLOOD SUGAR DIAGNOSTIC STRIPS Test blood sugar(s) 1x daily.* BD LUER-MARLIN SYRINGE 3 ML 23 X* USE FOR B-12 INJECTIONS EVERY * MULTIVITAMIN CAPSULE Take 1 capsule by mouth once * CHOLECALCIFEROL (VITAMIN D3) * Take 2 tablets by mouth once * MELATONIN 10 MG TABLET Take 10 mg by mouth daily at * ACYCLOVIR 5 % TOPICAL OINTMENT Apply 6 times daily for 7 day * LANCETS Use as instructed Problem List As Of Date 01/29/2020 Noted Resolved ROTATOR CUFF SYND NOS [M71.9, M67.919] 12/22/2002 Lateral epicondylitis of elbow [M77.10] 12/22/2002 0 JOINT PAIN-UP/ARM [M25.529] 02/02/2003 TRIGGER FINGER [M65.30] 03/30/2003 More... Follow-up examination following surgery [V67.0] 07/18/2004 1 Other tenosynovitis of hand and wrist [M65.849,*05/01/2005 1 Hyperlipidemia [E78.5] More... Iron deficiency anemia [D50.9] More... PERNICIOUS ANEMIA [D51.0] More... More... More... Diabetes mellitus type 2, controlled, without c*05/07/2005 More... Pain in soft tissues of limb [M79.609] 05/15/2005 04/18/2010 INSOMNIA NOS [G47.00] 07/25/2005 More... OSTEOPENIA [M89.9, M94.9] 10/23/2005 More... PEPTIC ULCER NOS [K27.9] 10/23/2005 Unspecified ventral hernia without mention of o*10/23/2005 1 DIVERTICULOSIS OF COLON W/O BLEED [K57.30] 10/23/2005 IRRITABLE COLON [K58.9] 11/28/2005 Abdominal pain, right upper quadrant [R10.11] 04/05/2006 RECURRENT UTI's [N39.0] 03/22/2008 04/18/2010 Fibromyalgia [M79.7] 06/29/2008 More... Abdominal pain, other specified site [R10.9] 06/29/200803/31 HEMORRHOIDS NOS [K64.9] 06/29/2008 DISLOC DIST RADIOULN-CLOSE [S63.016A] 07/13/2008 Abdominal pain, generalized [R10.84] 10/29/2008 04/18/2010 PULMONARY NODULE [R22.2] 01/17/2009 More... ATROPHIC VAGINITIS [N95.2] 01/17/2009 FELIPE (Generalized Anxiety Disorder) [F41.1] 03/20/2010 Cervicalgia [M54.2] 05/22/2010 Other physical therapy [[id number]] 06/21/2010 01/06/2016 Other specified disorder of bladder [596.8] 07/25/201001/05 Recurrent UTI [N39.0] 07/03/2011 01/06/2016 Polypharmacy [Z79.899] 07/03/2011 Abnormality of urethral meatus [Q64.70] 07/16/2011 Generalized abdominal pain [R10.84] 07/16/2011 Urinary retention [R33.9] 07/16/2011 Hypothyroidism [E03.9] 01/07/2012 Urgency of urination [R39.15] 03/19/2012 Urge incontinence [N39.41] 03/19/2012 Trigger index finger of right hand [M65.321] 12/25/2012 DJD (degenerative joint disease) [M19.90] Marital conflict [Z63.0] 03/15/2014 Vitamin D deficiency [E55.9] 07/13/2014 Attention deficit hyperactivity disorder (ADHD)*02/10/2015 Bilateral low back pain with right-sided sciati*06/02/2015 Right hip pain [M25.551] 06/02/2015 Recurrent major depressive disorder, in partial*09/26/2015 Pain in right hip [M25.551] 10/25/2015 Trochanteric bursitis of both hips [M70.61, M70*10/25/2015 Chronic bilateral low back pain without sciatic*10/25/2015 Trigger little finger of left hand [M65.352] 01/23/2016 Trigger ring finger of left hand [M65.342] 01/23/2016 Trigger middle finger of left hand [M65.332] 01/23/2016 Bilateral hip pain [M25.551, M25.552] 09/20/2016 Greater trochanteric bursitis of both hips [M70*09/20/2016 Status post bariatric surgery [Z98.84] 10/11/2016 Dysuria [R30.0] 11/21/2017 Nonrheumatic aortic valve stenosis [I35.0] 12/19/2018 HTN, goal below 130/80 [I10] 12/19/2018 Lumbar back pain with radiculopathy affecting l*10/13/2019 Encounter Status:Closed by MARIANO ELIZABETH on 01/29/20 cnpn on 2020[facility]01[facility] Normal 01-12-[address] [facility] SONNY DENNIS ([id number]) 1940 [facility] Date Time Provider Department ([id number]) 01/12/20 JAKE FISH ([facility]) FAMPWS During your visit today, we recorded the following informati on about you: Radha Owens LPN 01/12/2020 4:21 PM Signed Patient calling for the results of last lab work. Alphonso montiel advise. Rdaha Fish APRN.JANNY 01/12/2020 4:33 PM Signed Tox screen and pain panel not completed in November. All labs in acceptable range (metabolic panel, CBC HgbA1c, thyroid). Stable DM control. OK to mail a copy of her labs if she wants a copy Component Latest Ref Rng AND Units 02/18/2018 10/24/2018201812/08/2019 Hemoglobin A1C 4.3 - 5.6 % 7.1 (H) 6.6 (H) 7.0 (H) 7.2 (H) Estimated Average Glucose mg/dL 157 143 154 160 Component Latest Ref Rng AND Units 12/08/2019 Protein, Total 6.3 - 8.0 g/dL 7.1 Albumin 3.9 - 4.9 g/dL 4.4 Calcium 8.5 - 10.2 mg/dL 9.9 Bilirubin, Total 0.2 - 1.3 mg/dL 0.2 Alkaline Phosphatase 34 - 123 U/L 65 AST 13 - 35 U/L 24 Glucose 74 - 99 mg/dL 117 (H) BUN 7 - 21 mg/dL 13 Creatinine 0.58 - 0.96 mg/dL 0.96 Sodium 136 - 144 mmol/L 138 Potassium 3.7 - 5.1 mmol/L 4.6 Chloride 97 - 105 mmol/L 98 CO2 22 - 30 mmol/L 25 Anion Gap 9 - 18 mmol/L 15 ALT 7 - 38 U/L 13 eGFR- >60 eGFR-All Other Races . 56 WBC 3.70 - 11.00 k/uL 5.25 RBC 3.90 - 5.20 m/uL 3.92 Hemoglobin 11.5 - 15.5 g/dL 12.0 Hematocrit 36.0 - 46.0 % 38.5 MCV 80.0 - 100.0 fL 98.2 MCH 26.0 - 34.0 pG 30.6 MCHC 30.5 - 36.0 g/dL 31.2 RDW-CV 11.5 - 15.0 % 13.1 Platelet Count 150 - 400 k/uL 333 MPV 9.0 - 12.7 fL 10.0 Absolute nRBC <0.01 k/uL <0.01 Cholesterol, Total <200 mg/dL 132 Triglyceride <150 mg/dL 100 HDL Cholesterol >39 mg/dL 64 LDL Cholesterol <100 mg/dL 48 Non HDL Cholesterol <130 mg/dL 68 Fasting Time hrs 12 VLDL Cholesterol <30 mg/dL 20 TC:HDL Ratio <5.10 2.06 LDL:HDL Ratio <2.54 0.75 Hemoglobin A1C 4.3 - 5.6 % 7.2 (H) Estimated Average Glucose mg/dL 160 TSH 0.270 - 4.200 uU/mL 2.880 Free T4 0.9 - 1.7 ng/dL 1.3 Verito E Christina RAMOS 01/13/2020 9:50 AM Signed Left message to call office and speak to nurse re: Non-urgen t results. Verito Vasquez LPN Verito He Christina RAMOS 01/21/2020 3:10 PM Signed Patient notified of below results/recommendation, she has already received a copy of Labs results. Patient did not want to schedule Lab Appt, she will just sto p in. Verito Vasquez LPN Allergies As of Date: 01/12/2020 Noted Allergy Reaction MACROBID (NITROFURANTOIN MONOHYD/*01/10/2009 8 - GI Upset ADHESIVE TAPE (ROSINS) 03/03/2013 14 - Other: See Comments Comments: redness ATIVAN (LORAZEPAM) 12/27/2015 1 - Mental Status Change BENZODIAZEPINES 12/22/2002 1 - Mental Status Change Comments: ativan--made her loopy while in hospital CIPROFLOXACIN 04/27/2008 9 - Itching Comments: Oral Yeast Infection Thrush DEMEROL (MEPERIDINE HCL) 05/04/2005 LATEX 12/22/2002 2 - Rash Comments: Pt notes is a sensitivity, not allergy SULFA (SULFONAMIDE ANTIBIOTICS) 12/22/2002 14 - Other: See C omments Comments: Patient was treated for UTI in October 2011 after told nurse that reaction was just yeast infection (not vomiting as was previously listed) XANTHINES 12/22/2002 Comments: monaevon Date Reviewed: 01/07/2020 Reviewed by: Jkae (Chief Of Harbor Patrol) Abe - Fully Assessed Reason for Visit: Results [95] Prescriptions as of 01/12/2020 Sig: DOCUSATE SODIUM 100 MG CAPSULE Take 1 capsule by mouth twice * HYDROCODONE 5 MG-ACETAMINOPHE* Take 1 tablet by mouth every * HYDROCODONE 5 MG-ACETAMINOPHE* Take 1 tablet by mouth every * BUPROPION XL 150 MG TAB Take 1 tablet by mouth once d* GABAPENTIN 300 MG CAPSULE Take 2 capsules in the mornin* FAMOTIDINE 20 MG TABLET Take 1 tablet by mouth twice * LEVOTHYROXINE 50 MCG TABLET Take 1 tablet by mouth daily * METFORMIN 850 MG TABLET Take 1 tablet by mouth twice * METFORMIN 850 MG TABLET Take 1 tablet by mouth twice * CYANOCOBALAMIN (VIT B-12) 1,0* 1 mL IM every 3 weeks FUROSEMIDE 20 MG TABLET Take 1 tablet by mouth once d* LISINOPRIL 10 MG TABLET Take 1 tablet by mouth once d* NYSTATIN 100,000 UNIT/ML ORAL* One teaspoon swish in mouth f * CYCLOBENZAPRINE 10 MG TABLET Take 1 tablet by mouth daily * ATORVASTATIN 20 MG TABLET Take 1 tablet by mouth once d* MIRTAZAPINE 15 MG TABLET Take 1 tablet by mouth daily * PAROXETINE 10 MG TABLET Take 1 tablet by mouth once d* PERFLUTREN LIPID MICROSPHERES* Inject 1.3 mL intravenously a * CALCIUM 600 ORAL Take by mouth. VITAMIN E 400 UNIT CAPSULE Take 400 Units by mouth once * CYANOCOBALAMIN (VIT B-12) 500* Take by mouth once daily. CRANBERRY EXTRACT 200 MG CAPS* Take 800 mg by mouth. BLOOD SUGAR DIAGNOSTIC STRIPS Test blood sugar(s) 1 times d* GLIMEPIRIDE 1 MG TABLET Take 1 tablet by mouth daily * VITS,CALCIUM 21-IRON* Take by mouth. Pt is taking 2 * POTASSIUM CHLORIDE ER 10 MEQ * Take 1 capsule by mouth once * BLOOD-GLUCOSE METER KIT Glucose Meter of Choice - Kit* LANCETS Test blood sugar(s) 1 times d* BLOOD-GLUCOSE METER KIT Glucose Meter of Choice, insu* BLOOD SUGAR DIAGNOSTIC STRIPS Test blood sugar(s) 1x daily.* BD LUER-MARLIN SYRINGE 3 ML 23 X* USE FOR B-12 INJECTIONS EVERY * MULTIVITAMIN CAPSULE Take 1 capsule by mouth once * CHOLECALCIFEROL (VITAMIN D3) * Take 2 tablets by mouth once * MELATONIN 10 MG TABLET Take 10 mg by mouth daily at * ACYCLOVIR 5 % TOPICAL OINTMENT Apply 6 times daily for 7 day * LANCETS Use as instructed Problem List As Of Date 01/12/2020 Noted Resolved ROTATOR CUFF SYND NOS [M71.9, M67.919] 12/22/2002 Lateral epicondylitis of elbow [M77.10] 12/22/2002 0 JOINT PAIN-UP/ARM [M25.529] 02/02/2003 TRIGGER FINGER [M65.30] 03/30/2003 More... Follow-up examination following surgery [V67.0] 07/18/2004 1 Other tenosynovitis of hand and wrist [M65.849,*05/01/2005 1 Hyperlipidemia [E78.5] More... Iron deficiency anemia [D50.9] More... PERNICIOUS ANEMIA [D51.0] More... More... More... Diabetes mellitus type 2, controlled, without c*05/07/2005 More... Pain in soft tissues of limb [M79.609] 05/15/2005 04/18/2010 INSOMNIA NOS [G47.00] 07/25/2005 More... OSTEOPENIA [M89.9, M94.9] 10/23/2005 More... PEPTIC ULCER NOS [K27.9] 10/23/2005 Unspecified ventral hernia without mention of o*10/23/2005 1 DIVERTICULOSIS OF COLON W/O BLEED [K57.30] 10/23/2005 IRRITABLE COLON [K58.9] 11/28/2005 Abdominal pain, right upper quadrant [R10.11] 04/05/2006 RECURRENT UTI's [N39.0] 03/22/2008 04/18/2010 Fibromyalgia [M79.7] 06/29/2008 More... Abdominal pain, other specified site [R10.9] 06/29/200803/31 HEMORRHOIDS NOS [K64.9] 06/29/2008 DISLOC DIST RADIOULN-CLOSE [S63.016A] 07/13/2008 Abdominal pain, generalized [R10.84] 10/29/2008 04/18/2010 PULMONARY NODULE [R22.2] 01/17/2009 More... ATROPHIC VAGINITIS [N95.2] 01/17/2009 FELIPE (Generalized Anxiety Disorder) [F41.1] 03/20/2010 Cervicalgia [M54.2] 05/22/2010 Other physical therapy [EDF9874] 06/21/2010 01/06/2016 Other specified disorder of bladder [596.8] 07/25/201001/05 Recurrent UTI [N39.0] 07/03/2011 01/06/2016 Polypharmacy [Z79.899] 07/03/2011 Abnormality of urethral meatus [Q64.70] 07/16/2011 Generalized abdominal pain [R10.84] 07/16/2011 Urinary retention [R33.9] 07/16/2011 Hypothyroidism [E03.9] 01/07/2012 Urgency of urination [R39.15] 03/19/2012 Urge incontinence [N39.41] 03/19/2012 Trigger index finger of right hand [M65.321] 12/25/2012 DJD (degenerative joint disease) [M19.90] Marital conflict [Z63.0] 03/15/2014 Vitamin D deficiency [E55.9] 07/13/2014 Attention deficit hyperactivity disorder (ADHD)*02/10/2015 Bilateral low back pain with right-sided sciati*06/02/2015 Right hip pain [M25.551] 06/02/2015 Recurrent major depressive disorder, in partial*09/26/2015 Pain in right hip [M25.551] 10/25/2015 Trochanteric bursitis of both hips [M70.61, M70*10/25/2015 Chronic bilateral low back pain without sciatic*10/25/2015 Trigger little finger of left hand [M65.352] 01/23/2016 Trigger ring finger of left hand [M65.342] 01/23/2016 Trigger middle finger of left hand [M65.332] 01/23/2016 Bilateral hip pain [M25.551, M25.552] 09/20/2016 Greater trochanteric bursitis of both hips [M70*09/20/2016 Status post bariatric surgery [Z98.84] 10/11/2016 Dysuria [R30.0] 11/21/2017 Nonrheumatic aortic valve stenosis [I35.0] 12/19/2018 HTN, goal below 130/80 [I10] 12/19/2018 Lumbar back pain with radiculopathy affecting l*10/13/2019 Encounter Status:Closed by VERITO VASQUEZ LPN on 01/21/20 progress on 2019-12 PROGRESS HNO ID: [id number] Normal 01-07-2020 [facility] Author: Jake (Chief Of Harbor Patrol) Abe Santiago ([id number]) Service: ? Author Type: Nurse Specialist Type: Progress Notes Filed: 01/07/2020 12:22 PM Note Text: DISTANCE HEALTH VISIT This Team Access Model visit is a phone encounter. It requir ed patient-provider interaction for the medical decision making as documented below. Sonny Dennis is a 79 year old female seen for [facility] e follow up. Subjective HPI excerpted from last visit: She is s/p lumbar fusion 01/05/[address] Florencio Ibrahim [facility], intially felt she was doing better following surgery, but carreno s had trouble with left sided low back pain radiation down left leg recent ly. She was seen at [facility] emergency departm ent yesterday for back and leg pain. She had lumbar surgery [address] Florencio Ibrahim. She noted doing well until about 6 months ago and has had increasing lower back pain since that time. No injury or tra lisandra or intervening procedures. She notes pain in low back on the le ft side into her left hip and left knee. She reported trying [place] at [facility] but was having severe pain. No bowel or bladder changes no fever no other associated symptoms. Exam in ER showed negative straight leg raise, hip and knee showed normal range of motion good strength and sen sation neurovascularly intact, some pain palpation left lower lumba r paraspinal region. X-ray of lumbar spine and left hip were performed an d showed chronic changes only, no acute. Impression was chronic pain with some sciatica noted. She was treated with pain medication, advise d to resume [place] at home to follow-up in outpatient setting. Today she notes she is not sure if gabapentin is helping prisca y much. She reports not sedated with current dosing. Reports Norfolk does help. She reports receiving morphine in the ER yesterday and this did help but caused her to sleep in this morning. She still takes Tylenol for back pain, has not noticed much difference with this. She did see pain management previously in [place] but did not find relief wit h this provider. Does not have upcoming appointment with Dr. Ibrahim , back surgeon. Last visit her dose of gabapentin was increased. She notes that the dose increase did not seem to help much. She was also started on Celebrex which also did not seem to help very much. She notes she is getting relief of pain with [place]. No repor rod adverse effects. PDMP website checked and validated. All prescriptions have b een APPROPRIATELY filled. No suspicious activity was identified. 01/07/2020 by Jake Fish APRN.LAB ASST Since last year she has been seen by her surgeon Dr. Ibrahim, Xrays completed, MRI scheduled at [facility]. To be seen in [facility] up 01/17. She notes that he thought she may have had impingement off a nd nerve causing her pain. Review of Systems Constitutional: Negative. Respiratory: Negative. Cardiovascular: Negative. Musculoskeletal: Positive for back pain. Objective There were no vitals taken for this visit. PHYSICAL EXAMINATION: General: Answering questions appropriately in full sentences without cough wheeze or shortness of breath ALLERGIES Allergen Reactions - Macrobid [Nitrofura* GI Upset - Adhesive Tape (Lisa* Other: See Comments redness - Ativan [Lorazepam] Mental Status Change - Benzodiazepines Mental Status Change ativan--made her loopy while in hospital - Ciprofloxacin Itching Oral Yeast Infection Thrush - Demerol [Meperidine* - Latex Rash Pt notes is a sensitivity, not allergy - Sulfa (Sulfonamide * Other: See Comments Patient was treated for UTI in October 2011 after told nurse gregorio t reaction was just yeast infection (not vomiting as was previously lis rod) - Xanthines darvon Current Outpatient Medications Medication Sig - docusate sodium (COLACE) 100 mg capsule Take 1 capsule by mouth twice daily as needed for Constipation. While taking hydrocodone ( Norfolk) - [START ON 02/06/2020] HYDROcodone-acetaminophen (NORCO) 5-32 5 mg per tablet Take 1 tablet by mouth every 6 hours as needed for Pa in for up to 30 days. Do not start before February 06, 2020. - HYDROcodone-acetaminophen (NORCO) 5-325 mg per tablet Take 1 tablet by mouth every 6 hours as needed for Pain for up to 30 days. - buPROPion XL (WELLBUTRIN XL) 150 mg 24 hr tablet Take 1 ta blet by mouth once daily. ID# [id number] - gabapentin (NEURONTIN) 300 mg capsule Take 2 capsules in t he morning, 3 capsules at bedtime - famotidine (PEPCID) 20 mg tablet Take 1 tablet by mouth tw ice daily. take for one month while taking celocoxib - levothyroxine (SYNTHROID) 50 mcg tablet Take 1 tablet by m outh daily before breakfast. ID# [id number] - metFORMIN (GLUCOPHAGE) 850 mg tablet Take 1 tablet by mout h twice daily with meals. ID# [id number] - metFORMIN (GLUCOPHAGE) 850 mg tablet Take 1 tablet by mout h twice daily with meals. ID# [id number] - cyanocobalamin 1,000 mcg/mL 1 mL IM every 3 weeks - furosemide (LASIX) 20 mg tablet Take 1 tablet by mouth onc e daily. as needed for leg swelling. - lisinopril (ZESTRIL, PRINIVIL) 10 mg tablet Take 1 tablet by mouth once daily. As directed ID# [id number] - nystatin (MYCOSTATIN) 100,000 unit/mL suspension One teasp oon swish in mouth for several minutes then swallow (or expectorate) four times daily. Use until gone. - cyclobenzaprine (FLEXERIL) 10 mg tablet Take 1 tablet by m outh daily at bedtime. ID# [id number] - atorvastatin (LIPITOR) 20 mg tablet Take 1 tablet by mouth once daily. - mirtazapine (REMERON) 15 mg tablet Take 1 tablet by mouth daily at bedtime. ID# [id number] - PARoxetine (PAXIL) 10 mg tablet Take 1 tablet by mouth onc e daily. ID# [id number] - perflutren lipid microspheres (DEFINITY) 1.1 mg/mL injecti on (to be provided with echo procedure) Inject 1.3 mL intravenously as directed. - calcium carbonate (CALCIUM 600 ORAL) Take by mouth. - Vitamin E, dl, acetate, (VITAMIN E) 400 unit capsule Take 400 Units by mouth once daily. - cyanocobalamin (VITAMIN B-12) 500 mcg tab tab(s) Take by m outh once daily. - Cranberry Extract 200 mg cap Take 800 mg by mouth. - blood sugar diagnostic (BLOOD GLUCOSE TEST) test strip Willie t blood sugar(s) 1 times daily. Dx: Type 2 DM - Controlled E11.9 Ins ulin: No - glimepiride (AMARYL) 1 mg tablet Take 1 tablet by mouth da eb with breakfast. ID# [id number] - PNV Cmb#[id number] Acid ( COMPLETE) 14 mg iron- 400 mcg tab Take by mouth. Pt is taking 2 tablets daily - potassium chloride SR (MICRO-K) 10 mEq CR capsule Take 1 c apsule by mouth once daily. once daily for three days then once daily when taking furosemide. - Blood-Glucose Meter monitoring kit Glucose Meter of Choice - Kit - Dx: Type 2 DM - Controlled E11.9 Test blood sugar 1 time daily. - Lancets lancets Test blood sugar(s) 1 times daily. Dx: Typ e 2 DM - Controlled E11.9 Insulin: No - Blood-Glucose Meter monitoring kit Glucose Meter of Choice , insurance preferred - Kit - Dx: Type 2 DM - Controlled E11.9 - blood sugar diagnostic (BLOOD GLUCOSE TEST) test strip Willie t blood sugar(s) 1x daily. Dx: Controlled DM type 2. Insulin: No - BD LUER-MARLIN SYRINGE 3 mL 23 x 1 syrg USE FOR B-12 INJECTI ONS EVERY 3 WEEKS OR DIRECTED - Multivitamin capsule Take 1 capsule by mouth once daily. - cholecalciferol (VITAMIN D) 1,000 unit tab tablet Take 2 t ablets by mouth once daily. - melatonin 10 mg tab Take 10 mg by mouth daily at bedtime. - acyclovir (ZOVIRAX) 5 % ointment Apply 6 times daily for 7 days for cold sores - Lancets (ACCU-CHEK MULTICLIX LANCET) Misc lancets Use as i nstructed Current Facility-Administered Medications Medication Dose Route Frequency - betamethasone acetate-betamethasone sodium phosphate 6 mg injection (CELESTONE) 6 mg Injection - FOR ORTHO USE ONLY - lidocaine (PF) 10 mg/mL (1 %) 2 mL injection (XYLOCAINE) 2 mL Injection - FOR ORTHO USE ONLY - betamethasone acetate-betamethasone sodium phosphate 6 mg injection (CELESTONE) 6 mg Injection - FOR ORTHO USE ONLY - lidocaine (PF) 10 mg/mL (1 %) 2 mL injection (XYLOCAINE) 2 mL Injection - FOR ORTHO USE ONLY Component Latest Ref Rng AND Units 12/08/2019 Protein, Total 6.3 - 8.0 g/dL 7.1 Albumin 3.9 - 4.9 g/dL 4.4 Calcium 8.5 - 10.2 mg/dL 9.9 Bilirubin, Total 0.2 - 1.3 mg/dL 0.2 Alkaline Phosphatase 34 - 123 U/L 65 AST 13 - 35 U/L 24 Glucose 74 - 99 mg/dL 117 (H) BUN 7 - 21 mg/dL 13 Creatinine 0.58 - 0.96 mg/dL 0.96 Sodium 136 - 144 mmol/L 138 Potassium 3.7 - 5.1 mmol/L 4.6 Chloride 97 - 105 mmol/L 98 CO2 22 - 30 mmol/L 25 Anion Gap 9 - 18 mmol/L 15 ALT 7 - 38 U/L 13 eGFR- >60 eGFR-All Other Races . 56 WBC 3.70 - 11.00 k/uL 5.25 RBC 3.90 - 5.20 m/uL 3.92 Hemoglobin 11.5 - 15.5 g/dL 12.0 Hematocrit 36.0 - 46.0 % 38.5 MCV 80.0 - 100.0 fL 98.2 MCH 26.0 - 34.0 pG 30.6 MCHC 30.5 - 36.0 g/dL 31.2 RDW-CV 11.5 - 15.0 % 13.1 Platelet Count 150 - 400 k/uL 333 MPV 9.0 - 12.7 fL 10.0 Absolute nRBC <0.01 k/uL <0.01 Cholesterol, Total <200 mg/dL 132 Triglyceride <150 mg/dL 100 HDL Cholesterol >39 mg/dL 64 LDL Cholesterol <100 mg/dL 48 Non HDL Cholesterol <130 mg/dL 68 Fasting Time hrs 12 VLDL Cholesterol <30 mg/dL 20 TC:HDL Ratio <5.10 2.06 LDL:HDL Ratio <2.54 0.75 Hemoglobin A1C 4.3 - 5.6 % 7.2 (H) Estimated Average Glucose mg/dL 160 TSH 0.270 - 4.200 uU/mL 2.880 Free T4 0.9 - 1.7 ng/dL 1.3 Assessment and Plan 1.. Chronic bilateral low back pain with bilateral sciatica - ICD9: 724.2, 724.3, 338.29, ICD10: M54.42, M54.41, G89.29 s/p fusion with increased pain, recent ER visit for low back pain. Since last here she has been seen by her spine surgeon Dr. Agueda johansen at [facility]. An x-ray was completed. MRI is scheduled. Fo llow-up visit is scheduled. She reports he did not make any changes to her medications. At her last visit here her dose of gabapentin w as increased. She notes not much change with this increase. She will marco nue on this dose unchanged for now. Celebrex did not seem to help with her back pain, will disco ntinue that for now. Consideration for addition of Cymbalta to her current medica tions but she is already on Wellbutrin and paroxetine so holding off on th at for now. She is getting relief from [place] for her pain so we will inc rease the dose, currently taking twice daily typically, can increase t o 3 times daily as needed. Addition of Colace in the event she has con stipation while taking these medications. ER visit for concerning or red flag symptoms. follow up PCP 6 mos, continue with Q2 mo visits for chronic pain medication. 30 min spent in visit Jake Fish APRN.LAB ASST clinical summary: [email or web address] on 2019-12-31 OOP 12-31-2019 - 12-31-2019 [facility] [place] ([id number]) progress on 2019-11 PROGRESS HNO ID: [id number] Normal 12-22-2019 [facility] Author: Juany (Rac) Jessica [place] ([id number]) Service: ? Author Type: Diplomat of Acupuncture Type: Progress Notes Filed: 12/22/2019 9:19 AM Note Text: Sonny Dennis a 79 year old female presents to the ac upuncture clinic on 12/22/19 for an initial consultation. Patient identity confirmed by name and : Yes SUBJECTIVE Chief Complaint: Left hip pain The patient's history is well detailed in the EMR. Patient seen today for left hip pain. Patient had a back sujey vishal in December 2018 and the left hip pain started in March 2019. There were no previous injuries to her hip. The pain is constant with a sh rod, burning, and aching sensation. Patient notice the pain starts in her left calf and radiate laterally and upward to her left hip and left lower back. The pain does not go to the right side of her back. The pain is worst when she is walking and alleviate when sitting. However, sitting will tr igger a throbbing sensation in her leg. Overall pain 10/10. Past Medical History Relevant to Chief Complaint: Yes PAIN ASSESSMENT: CURRENTLY HAVING PAIN; LOCATION/DISTRIBUTIO N: left hip/leg PAIN SCALE: 10 on 0-10 scale per patient PAIN CHARACTER: aching, burning and sharp AGGRAVATING FACTORS: walking ALLEVIATING FACTORS: sitting Treatments to Date Relevant to Chief Complaint: MD and PT SECONDARY COMPLAINT: None The same as above if there is a secondary REVIEW OF SYSTEMS: Overall Temperature and KD Function: Cold Hands, Cold Feet, Sensation of hot body temperature, Perspire easily and Fatigue Overall Energy (SONAL, KD Function): Negative for shortness of breath, general weakness, easily catch colds, and feeling worse afte r exercise. Blood (LV, SP, HT Function):Negative for dizziness and float ing black spots. HT Function: Negative for palpations, anxiety, sores on the tip of tongue, restlessness, mental confusion, chest pain, frequent vivid d priya, and waking un-refreshed. SONAL Function: Dry Mouth SP Function: Gurgling noise in stomach and Poor appetite SP, ST, LI, SI Function: Loose stool, diarrhea, and hemorrho ids ST Function: Negative for acid reflux, GERD, large appetite, bad breath, mouth sores, bleeding/swollen AND painful gums, ulcers, belc kimmy, hiccups, stomach pain, and vomiting. LV, GB Function: Frustruated, irritable/angry, depressed, sa d, and worry Eyes (LV Functions): Dry KD, BL Function: Sore/weak knees, Lower back Pain, Poor corinna ry and Frequent UTI, High pitched ear ringing Urination: Dark yellow OBJECTIVE Physical Exam Tenderness bilateral hip Pain with palpation Yes ROM slightly limited Visual inspection Redness None Edema None Gait/Ambulation Need a cane to assist with walking d/t left hip pain Imaging reports Images on file 06/04/2019 XR Hip Images have been reviewed Yes IMPRESSION: No acute osseous finding left hip. ?Left hip is maintained. ? Chondrocalcinosis. RESULT: No fracture or dislocation. ?Joint spaces are maintained. ? Chondrocalcinosis. ?SI joints and pubic symphysis are intact . ? Postsurgical changes in the lower lumbar spine. TCM Tongue: n/a at this time TCM Pulse: Right: middle-thin, rapid; deep-weak, small; Left : middle-long, wiry, and rapid; deep-weak GENERAL APPEARANCE Alert Pleasant Normal ASSESSMENT Patient presents with signs and symptoms consistent with the diagnosis. Patient would benefit from acupuncture therapy to address li sted deficiencies and return to PLOF. Pt was educated on symptoms , prognosis, plan of care and activity modifications. Pt verbalized under standing and agreed to begin care. TCM Pattern: Left hip pain due to Qi and blood stagnation le ading to internal heat with Liver Qi stagnation with underlying Splee n and Kidney Qi deficiency TCM Treatment Principle: Soothe Qi, Remove blood stasis, Manny ar heat Plan of Care: Counseled patient on risks of acupuncture treatment includin g pain, infection, bleeding, and no relief of pain. Patient agreed t o treatment and provided consent. The patient was positioned comfortably . There was no evidence of infection at the site of needle insertions. Counseled patient on differences between Shared Acupuncture Medical Appointment and Private Visit follow-ups. Patient is a suitable candidate for Shared Acupuncture Medic al Appointments (VANDA): No Treatment schedule: Acupuncture once a week. Then re-evaluat ed for therapeutic effect. Prognosis: Fair SHORT TERM GOALS: Reduce pain by 20% - 25% in 6 weeks. Improve ROM by 20% - 25% in 6 weeks Improve ADLs CORRECTION GOALS: Reduce pain by 50% - 55% in 3 months. Improve ROM by 50% - 55% in 3 months . INFORMED CONSENT CAPTURE: RBAPC and equipment discussed with patient and Informed Cons ent was gathered. Intake form located in patient file. ACUPUNCTURE TREATMENT Treatment/Needle Set 1, Supine: Points: UB40-B, GB30-B, GB31-B, Ren12-C, Ren4-C 15 minutes face to face with patient for set 1 Treatment/Needle Set 2, Supine: Points: PC6-B, ST36-B, GB34-B, KY6-B, LV3-B 16 minutes face to face with patient for set 2 Adjunct techniques used: TDP Infrared Heat Lamp TDP lamp applied to feet # of needles inserted: 18 # of needles withdrawn: 18 Patient tolerated the procedure well. TCM topicals used: none [place] Protocol Safety Checklist Worksheet Complete? : Ye s Home-Going Instructions: Avoid anything cold (food/drinks) at this time. If applying heat/cold packs, should try to alternate between the two (10 minutes w arm and 5 minutes cold). Provider Name: Ayaz Arzate 30 Total minutes face to face time spent with patient Acupuncture and Cuban herbal therapy is not a substitute f or conventional medical diagnosis and treatment. Patient agrees that either: 1. A diagnostic exam has been performed by a physician or ch iropractor within the last six months regarding the condition for which they are seeking acupuncture treatment. or 2. If no diagnostic exam by a physician or chiropractor has been done within the last six months regarding the condition for which patient is seeking treatment, the Applications Programmer, per [place] Law, recommends that this diagnostic exam be performed. cnov on 2019-12-22 CNOV Office Visit (WELCIM) Normal 12-22-19 [facility] SONNY DENNIS ([id number]) 1940 [facility] Date Time Provider Department ([id number]) 12/22/19 8:00 AM [facility] During your visit today, we recorded the following informati on about you: Ayaz Arzate 12/22/2019 9:19 AM Signed Sonny Dennis a 79 ye ar old female presents to the acupuncture clinic on 12/22/19 for an initial consultation. Patient identity confirmed by name and : Yes SUBJECTIVE Chief Complaint: Left hip pain The patient's history is well detailed in the EMR. Patient seen today for left hip pain. Patient carreno d a back surgery in December 2018 and the left hip pain started in March 2019. There were no previous injuries to her hip. The pain is constant with a sharp, bu rning, and aching sensation. Patient notice the pain starts in her left calf a nd radiate laterally and upward to her left hip and left lower back. The pain does not go to the right side of her back. The pain is worst when she is walking and alleviate when sitting. However, sitting will trigger a throbbing sensation in her leg. Overall pain 10/10. Past Medical History Relevant to Chief Complaint: Yes PAIN ASSESSMENT: CURRENTLY HAVING PAIN; LOCATION/DISTRIBUT ION: left hip/leg PAIN SCALE: 10 on 0-10 scale per patient PAIN CHARACTER: aching, burning and sharp AGGRAVATING FACTORS: walking ALLEVIATING FACTORS: sitting Treatments to Date Relevant to Chief Complaint: MD and PT SECONDARY COMPLAINT: None The same as above if there is a secondary REVIEW OF SYSTEMS: Overall Temperature and KD Function: Cold Hands, Cold Feet, Sensation of hot body temperature, Perspire easily and Fatigue Overall Energy (SONAL, KD Function): Negative for shortness o f breath, general weakness, easily catch colds, and feeling worse after exerci se. Blood (LV, SP, HT Function):Negative for dizziness and floating black spots. HT Function: Negative for palpations, anxiety, sores on the tip of tongue, restlessness, mental confusion, chest pain, freq uent vivid dreams, and waking un-refreshed. SONAL Function: Dry Mouth SP Function: Gurgling noise in stomach and Poor appetite SP, ST, LI, SI Function: Loose stool, diarrhea, and hemorrho ids ST Function: Negative for acid reflux, G ERD, large appetite, bad breath, mouth sores, bleeding/swollen AND painful gums, ulcers, belc kimmy, hiccups, stomach pain, and vomiting. LV, GB Function: Frustruated, irritable/angry, depressed, sa d, and worry Eyes (LV Functions): Dry KD, BL Function: Sore/weak knees, Lower back Pain, Poor me raya and Frequent UTI, High pitched ear ringing Urination: Dark yellow OBJECTIVE Physical Exam Tenderness bilateral hip Pain with palpation Yes ROM slightly limited Visual inspection Redness None Edema None Gait/Ambulation Need a cane to assist with walking d/t left hip pain Imaging reports Images on file 06/04/2019 XR Hip Images have been reviewed Yes IMPRESSION: No acute osseous finding left hip. ?Left hip is maintained. ? Chondrocalcinosis. RESULT: No fracture or dislocation. ?Joint spaces are maintained. ? Chondrocalcinosis. ?SI joints and pubic symphysis are intact . ? Postsurgical changes in the lower lumbar spine. TCM Tongue: n/a at this time TCM Pulse: Right: middle-thin, rapid; deep-weak, small; Left : middle-long, wiry, and rapid; deep-weak GENERAL APPEARANCE Alert Pleasant Normal ASSESSMENT Patient presents with signs and symptoms consistent with the diagnosis. Patient would benefit from acupuncture therapy to address listed def iciencies and return to PLOF. Pt was educated on symptoms, prognosis, plan of care and activity modifications. Pt verbalized understand ing and agreed to begin care. TCM Pattern: Left hip pain due to Qi and blood s tagnation leading to internal heat with Liver Qi stagnation with underlying Sp kameron and Kidney Qi deficiency TCM Treatment Principle: Soothe Qi, Remove blood stasis, Manny ar heat Plan of Care: Counseled patient on risks of acupunctur e treatment including pain, infection, bleeding, and no relief of pain. Patient agreed to treatment and provided consent. The patient was positioned comfortably. There was n o evidence of infection at the site of needle insertions. Counseled patient on differe nces between Shared Acupuncture Medical Appointment and Private Visit follow-ups. Patient is a suitable candidate for Shared Acupuncture Med ical Appointments (VANDA): No Treatment schedule: Acupuncture once a w hopi. Then re-evaluated for therapeutic effect. Prognosis: Fair SHORT TERM GOALS: Reduce pain by 20% - 25% in 6 weeks. Improve ROM by 20% - 25% in 6 weeks Improve ADLs CORRECTION GOALS: Reduce pain by 50% - 55% in 3 months. Improve ROM by 50% - 55% in 3 months . INFORMED CONSENT CAPTURE: RBAPC and equipment discussed with patient and I nformed Consent was gathered. Intake form located in patient file. ACUPUNCTURE TREATMENT Treatment/Needle Set 1, Supine: Points: UB40-B, GB30-B, GB31-B, Ren12-C, Ren4-C 15 minutes face to face with patient for set 1 Treatment/Needle Set 2, Supine: Points: PC6-B, ST36-B, GB34-B, KY6-B, LV3-B 16 minutes face to face with patient for set 2 Adjunct techniques used: TDP Infrared Heat Lamp TDP lamp applied to feet # of needles inserted: 18 # of needles withdrawn: 18 Patient tolerated the procedure well. TCM topicals used: none [place] Protocol Safety Checklist Worksheet Complete? : Ye s Home-Going Instructions: Avoid anything cold (food/drinks) at this time. If bari lying heat/cold packs, should try to alternate between the two (10 virginie willie warm and 5 minutes cold). Provider Name: Juany Young, R Ac 30 Total minutes face to face time spent with patient Acupuncture and Cuban herbal therapy is not a substitute for conventional medical diagnosis and treatment. Patient agrees that either: 1. A diagnostic exam has been performed by a phy sician or chiropractor within the last six months regarding the condition for which they a re seeking acupuncture treatment. or 2. If no diagnostic exam by a physician or chiropracto r has been done within the last six months regarding the condition for which patien t is seeking treatment, the Applications Programmer, per [place] Law, recomme nds that this diagnostic exam be performed. Referring Provider: SELF [[id number]] Allergies As of Date: 12/22/2019 Noted Allergy Reaction MACROBID (NITROFURANTOIN MONOHYD/*01/10/2009 8 - GI Upset ADHESIVE TAPE (ROSINS) 03/03/2013 14 - Other: See Comments Comments: redness ATIVAN (LORAZEPAM) 12/27/2015 1 - Mental Status Change BENZODIAZEPINES 12/22/2002 1 - Mental Status Change Comments: ativan--made her loopy while in hospital CIPROFLOXACIN 04/27/2008 9 - Itching Comments: Oral Yeast Infection Thrush DEMEROL (MEPERIDINE HCL) 05/04/2005 LATEX 12/22/2002 2 - Rash Comments: Pt notes is a sensitivity, not allergy SULFA (SULFONAMIDE ANTIBIOTICS) 12/22/2002 14 - Other: See C omments Comments: Patient was treated for UTI in October 2011 after told nurse that reaction was just yeast infection (not vomiting as was previously listed) XANTHINES 12/22/2002 Comments: matti Date Reviewed: 12/22/2019 Reviewed by: Juany GarzaBanner Behavioral Health HospitalKarina Young - Fully Assessed Reason for Visit: Left Hip Pain [1555] Primary Visit Diagnosis:Chronic left hip pain [M25.552, G89. 29] Prescriptions as of 12/22/2019 Sig: CELECOXIB 200 MG CAPSULE Take 1 capsule by mouth once * HYDROCODONE 5 MG-ACETAMINOPHE* Take 1 tablet by mouth every * HYDROCODONE 5 MG-ACETAMINOPHE* Take 1 tablet by mouth every * BUPROPION XL 150 MG TAB Take 1 tablet by mouth once d* GABAPENTIN 300 MG CAPSULE Take 2 capsules in the mornin* FAMOTIDINE 20 MG TABLET Take 1 tablet by mouth twice * LEVOTHYROXINE 50 MCG TABLET Take 1 tablet by mouth daily * METFORMIN 850 MG TABLET Take 1 tablet by mouth twice * METFORMIN 850 MG TABLET Take 1 tablet by mouth twice * CYANOCOBALAMIN (VIT B-12) 1,0* 1 mL IM every 3 weeks FUROSEMIDE 20 MG TABLET Take 1 tablet by mouth once d* LISINOPRIL 10 MG TABLET Take 1 tablet by mouth once d* NYSTATIN 100,000 UNIT/ML ORAL* One teaspoon swish in mouth f * CYCLOBENZAPRINE 10 MG TABLET Take 1 tablet by mouth daily * ATORVASTATIN 20 MG TABLET Take 1 tablet by mouth once d* MIRTAZAPINE 15 MG TABLET Take 1 tablet by mouth daily * PAROXETINE 10 MG TABLET Take 1 tablet by mouth once d* PERFLUTREN LIPID MICROSPHERES* Inject 1.3 mL intravenously a * CALCIUM 600 ORAL Take by mouth. VITAMIN E 400 UNIT CAPSULE Take 400 Units by mouth once * CYANOCOBALAMIN (VIT B-12) 500* Take by mouth once daily. CRANBERRY EXTRACT 200 MG CAPS* Take 800 mg by mouth. BLOOD SUGAR DIAGNOSTIC STRIPS Test blood sugar(s) 1 times d* GLIMEPIRIDE 1 MG TABLET Take 1 tablet by mouth daily * VITS,CALCIUM 21-IRON* Take by mouth. Pt is taking 2 * POTASSIUM CHLORIDE ER 10 MEQ * Take 1 capsule by mouth once * BLOOD-GLUCOSE METER KIT Glucose Meter of Choice - Kit* LANCETS Test blood sugar(s) 1 times d* BLOOD-GLUCOSE METER KIT Glucose Meter of Choice, insu* BLOOD SUGAR DIAGNOSTIC STRIPS Test blood sugar(s) 1x daily.* BD LUER-MARLIN SYRINGE 3 ML 23 X* USE FOR B-12 INJECTIONS EVERY * MULTIVITAMIN CAPSULE Take 1 capsule by mouth once * CHOLECALCIFEROL (VITAMIN D3) * Take 2 tablets by mouth once * MELATONIN 10 MG TABLET Take 10 mg by mouth daily at * ACYCLOVIR 5 % TOPICAL OINTMENT Apply 6 times daily for 7 day * LANCETS Use as instructed Problem List As Of Date 12/22/2019 Noted Resolved ROTATOR CUFF SYND NOS [M71.9, M67.919] 12/22/2002 Lateral epicondylitis of elbow [M77.10] 12/22/2002 0 JOINT PAIN-UP/ARM [M25.529] 02/02/2003 TRIGGER FINGER [M65.30] 03/30/2003 More... Follow-up examination following surgery [V67.0] 07/18/2004 1 Other tenosynovitis of hand and wrist [M65.849,*05/01/2005 1 Hyperlipidemia [E78.5] More... Iron deficiency anemia [D50.9] More... PERNICIOUS ANEMIA [D51.0] More... More... More... Diabetes mellitus type 2, controlled, without c*05/07/2005 More... Pain in soft tissues of limb [M79.609] 05/15/2005 04/18/2010 INSOMNIA NOS [G47.00] 07/25/2005 More... OSTEOPENIA [M89.9, M94.9] 10/23/2005 More... PEPTIC ULCER NOS [K27.9] 10/23/2005 Unspecified ventral hernia without mention of o*10/23/2005 1 DIVERTICULOSIS OF COLON W/O BLEED [K57.30] 10/23/2005 IRRITABLE COLON [K58.9] 11/28/2005 Abdominal pain, right upper quadrant [R10.11] 04/05/2006 RECURRENT UTI's [N39.0] 03/22/2008 04/18/2010 Fibromyalgia [M79.7] 06/29/2008 More... Abdominal pain, other specified site [R10.9] 06/29/200803/31 HEMORRHOIDS NOS [K64.9] 06/29/2008 DISLOC DIST RADIOULN-CLOSE [S63.016A] 07/13/2008 Abdominal pain, generalized [R10.84] 10/29/2008 04/18/2010 PULMONARY NODULE [R22.2] 01/17/2009 More... ATROPHIC VAGINITIS [N95.2] 01/17/2009 FELIPE (Generalized Anxiety Disorder) [F41.1] 03/20/2010 Cervicalgia [M54.2] 05/22/2010 Other physical therapy [QFP9281] 06/21/2010 01/06/2016 Other specified disorder of bladder [596.8] 07/25/201001/05 Recurrent UTI [N39.0] 07/03/2011 01/06/2016 Polypharmacy [Z79.899] 07/03/2011 Abnormality of urethral meatus [Q64.70] 07/16/2011 Generalized abdominal pain [R10.84] 07/16/2011 Urinary retention [R33.9] 07/16/2011 Hypothyroidism [E03.9] 01/07/2012 Urgency of urination [R39.15] 03/19/2012 Urge incontinence [N39.41] 03/19/2012 Trigger index finger of right hand [M65.321] 12/25/2012 DJD (degenerative joint disease) [M19.90] Marital conflict [Z63.0] 03/15/2014 Vitamin D deficiency [E55.9] 07/13/2014 Attention deficit hyperactivity disorder (ADHD)*02/10/2015 Bilateral low back pain with right-sided sciati*06/02/2015 Right hip pain [M25.551] 06/02/2015 Recurrent major depressive disorder, in partial*09/26/2015 Pain in right hip [M25.551] 10/25/2015 Trochanteric bursitis of both hips [M70.61, M70*10/25/2015 Chronic bilateral low back pain without sciatic*10/25/2015 Trigger little finger of left hand [M65.352] 01/23/2016 Trigger ring finger of left hand [M65.342] 01/23/2016 Trigger middle finger of left hand [M65.332] 01/23/2016 Bilateral hip pain [M25.551, M25.552] 09/20/2016 Greater trochanteric bursitis of both hips [M70*09/20/2016 Status post bariatric surgery [Z98.84] 10/11/2016 Dysuria [R30.0] 11/21/2017 Nonrheumatic aortic valve stenosis [I35.0] 12/19/2018 HTN, goal below 130/80 [I10] 12/19/2018 Lumbar back pain with radiculopathy affecting l*10/13/2019 Encounter Status:Closed by JUANY YOUNG on 12/22/19 progress on 2019-11 PROGRESS HNO ID: [id number] Normal 12-10-2019 [facility] Author: Jake (Janny) Abe Santiago ([id number]) Service: ? Author Type: Nurse Specialist Type: Progress Notes Filed: 12/10/2019 8:46 AM Note Text: She was seen at [facility] emergency departm ent yesterday for back and leg pain. She had lumbar surgery [address] Florencio Ibrahim. She noted doing well until about 6 months ago and has had increasing lower back pain since that time. No injury or tra lisandra or intervening procedures. She notes pain in low back on the le ft side into her left hip and left knee. She reported trying [place] at naresh e but was having severe pain. No bowel or bladder changes no fever no other associated symptoms. Exam in ER showed negative straight leg raise, hip and knee showed normal range of motion good strength and sen sation neurovascularly intact, some pain palpation left lower lumba r paraspinal region. X-ray of lumbar spine and left hip were performed an d showed chronic changes only, no acute. Impression was chronic pain with some sciatica noted. She was treated with pain medication, advise d to resume [place] at home to follow-up in outpatient setting. PROGRESS HNO ID: [id number] Normal 12-10-2019 [facility] Author: Jake (Chief Of Harbor Patrol) Abe [place] ([id number]) Service: ? Author Type: Nurse Specialist Type: Progress Notes Filed: 12/10/2019 9:40 AM Note Text: DISTANCE HEALTH VISIT This Team Access Model visit is a phone encounter. It requir ed patient-provider interaction for the medical decision making as documented below. Sonny Dennis is a 79 year old female seen for [facility] e follow up. Subjective She is s/p lumbar fusion 01/05/[address] Florencio Ibrahim [facility], intially felt she was doing better following surgery, but carreno s had trouble with left sided low back pain radiation down left leg recent ly. She was seen at [facility] emergency departm ent yesterday for back and leg pain. She had lumbar surgery [address] Florencio Ibrahim. She noted doing well until about 6 months ago and has had increasing lower back pain since that time. No injury or tra lisandra or intervening procedures. She notes pain in low back on the le ft side into her left hip and left knee. She reported trying [place] at naresh e but was having severe pain. No bowel or bladder changes no fever no other associated symptoms. Exam in ER showed negative straight leg raise, hip and knee showed normal range of motion good strength and sen sation neurovascularly intact, some pain palpation left lower lumba r paraspinal region. X-ray of lumbar spine and left hip were performed an d showed chronic changes only, no acute. Impression was chronic pain with some sciatica noted. She was treated with pain medication, advise d to resume [place] at home to follow-up in outpatient setting. Today she notes she is not sure if gabapentin is helping prisca y much. She reports not sedated with current dosing. Reports [place] does help. She reports receiving morphine in the ER yesterday and this did help but caused her to sleep in this morning. She still takes Tylenol for back pain, has not noticed much difference with this. She did see pain management previously in [place] but did not find relief wit h this provider. Does not have upcoming appointment with Dr. Ibrahim , back surgeon. Has seen Dr. Iraheta for follow up of aortic stenosis. Ms. Prasad fierro indicates daily that she is without headache, chest pain, pr esyncope or syncope, palpitations, dyspnea, peripheral edema, orthopnea, fatigue and PND. DIABETES MELLITUS: She notes that her blood sugars have rece ntly been higher, recently is 198, 288. She was recently on methylpred nisolone. Without excessive thirst or increased frequency of urination , chest pain or dyspnea , numbness, tingling or pain in extremities, new or unusual visual symptoms, low sugar/hypoglycemic reactions, weight lo ss/gain, lightheadedness/dizziness and bowel changes/loose stools. Arcenio miles's last HgA1C was Hemoglobin A1C (%) Date Value 12/08/2019 7.2 05/07/2019 7.0 Hypothyroidism. She is doing well on her current dose of Syn throid. Denies fatigue, cold intolerance, constipation and swelling in feet. TSH (uU/mL) Date Value 12/08/2019 2.880 05/07/2019 5.690 HTN: Last 3 Encounter BP Readings: Date: BP: 10/13/2019 88/56 07/06/2019 100/48 06/23/2019 114/62 05/07/2019 106/60 04/16/2019 128/60 12/19/2018 112/58 12/12/2018 122/60 12/09/2018 116/62 11/27/2018 112/62 11/17/2018 122/68 10/24/2018 130/70 09/04/2018 134/64 06/03/2018 138/70 05/20/2018 130/72 02/20/2018 136/70 01/02/2018 90/60 12/03/2017 130/80 Mood seems good, stable, no voiced concerns. Review of Systems Constitutional: Negative. Respiratory: Negative. Cardiovascular: Negative. Musculoskeletal: Positive for back pain. Objective There were no vitals taken for this visit. PHYSICAL EXAMINATION: General: Answering questions appropriately in full sentences without cough wheeze or shortness of breath ALLERGIES Allergen Reactions - Macrobid [Nitrofura* GI Upset - Adhesive Tape (Lisa* Other: See Comments redness - Ativan [Lorazepam] Mental Status Change - Benzodiazepines Mental Status Change ativan--made her loopy while in hospital - Ciprofloxacin Itching Oral Yeast Infection Thrush - Demerol [Meperidine* - Latex Rash Pt notes is a sensitivity, not allergy - Sulfa (Sulfonamide * Other: See Comments Patient was treated for UTI in October 2011 after told nurse gregorio t reaction was just yeast infection (not vomiting as was previously lis rod) - Xanthines darvon Current Outpatient Medications Medication Sig - levothyroxine (SYNTHROID) 50 mcg tablet Take 1 tablet by m outh daily before breakfast. ID# [id number] - HYDROcodone-acetaminophen (NORCO) 5-325 mg per tablet Take 1 tablet by mouth every 6 hours as needed for Pain for up to 14 days. - metFORMIN (GLUCOPHAGE) 850 mg tablet Take 1 tablet by mout h twice daily with meals. ID# [id number] - metFORMIN (GLUCOPHAGE) 850 mg tablet Take 1 tablet by mout h twice daily with meals. ID# [id number] - cyanocobalamin 1,000 mcg/mL 1 mL IM every 3 weeks - gabapentin (NEURONTIN) 300 mg capsule Take 2 capsules by m outh twice daily for 180 days. ID# [id number] - furosemide (LASIX) 20 mg tablet Take 1 tablet by mouth onc e daily. as needed for leg swelling. (Patient not taking: Reported on ) - lisinopril (ZESTRIL, PRINIVIL) 10 mg tablet Take 1 tablet by mouth once daily. As directed ID# [id number] - nystatin (MYCOSTATIN) 100,000 unit/mL suspension One teasp oon swish in mouth for several minutes then swallow (or expectorate) four times daily. Use until gone. (Patient not taking: Reported on 11/16/2019 ) - famotidine (PEPCID) 20 mg tablet Take 1 tablet by mouth tw ice daily. (Patient not taking: Reported on 11/16/2019 ) - cyclobenzaprine (FLEXERIL) 10 mg tablet Take 1 tablet by m outh daily at bedtime. ID# [id number] - atorvastatin (LIPITOR) 20 mg tablet Take 1 tablet by mouth once daily. - mirtazapine (REMERON) 15 mg tablet Take 1 tablet by mouth daily at bedtime. ID# [id number] - PARoxetine (PAXIL) 10 mg tablet Take 1 tablet by mouth onc e daily. ID# [id number] - perflutren lipid microspheres (DEFINITY) 1.1 mg/mL injecti on (to be provided with echo procedure) Inject 1.3 mL intravenously as directed. - calcium carbonate (CALCIUM 600 ORAL) Take by mouth. - Vitamin E, dl, acetate, (VITAMIN E) 400 unit capsule Take 400 Units by mouth once daily. - cyanocobalamin (VITAMIN B-12) 500 mcg tab tab(s) Take by m outh once daily. - Cranberry Extract 200 mg cap Take 800 mg by mouth. - blood sugar diagnostic (BLOOD GLUCOSE TEST) test strip Willie t blood sugar(s) 1 times daily. Dx: Type 2 DM - Controlled E11.9 Ins ulin: No - glimepiride (AMARYL) 1 mg tablet Take 1 tablet by mouth da eb with breakfast. ID# [id number] - PNV Cmb#50-Xgsy-Louzy Acid ( COMPLETE) 14 mg iron- 400 mcg tab Take by mouth. Pt is taking 2 tablets daily - buPROPion XL (WELLBUTRIN XL) 150 mg 24 hr tablet Take 1 ta blet by mouth once daily. ID# [id number] - potassium chloride SR (MICRO-K) 10 mEq CR capsule Take 1 c apsule by mouth once daily. once daily for three days then once daily when taking furosemide. (Patient not taking: Reported on 07/06/2019 ) - Blood-Glucose Meter monitoring kit Glucose Meter of Choice - Kit - Dx: Type 2 DM - Controlled E11.9 Test blood sugar 1 time daily. - Lancets lancets Test blood sugar(s) 1 times daily. Dx: Typ e 2 DM - Controlled E11.9 Insulin: No - Blood-Glucose Meter monitoring kit Glucose Meter of Choice , insurance preferred - Kit - Dx: Type 2 DM - Controlled E11.9 - blood sugar diagnostic (BLOOD GLUCOSE TEST) test strip Willie t blood sugar(s) 1x daily. Dx: Controlled DM type 2. Insulin: No - BD LUER-MARLIN SYRINGE 3 mL 23 x 1 syrg USE FOR B-12 INJECTI ONS EVERY 3 WEEKS OR DIRECTED - Multivitamin capsule Take 1 capsule by mouth once daily. - cholecalciferol (VITAMIN D) 1,000 unit tab tablet Take 2 t ablets by mouth once daily. - melatonin 10 mg tab Take 10 mg by mouth daily at bedtime. - acyclovir (ZOVIRAX) 5 % ointment Apply 6 times daily for 7 days for cold sores - Lancets (ACCU-CHEK MULTICLIX LANCET) Misc lancets Use as i nstructed Current Facility-Administered Medications Medication Dose Route Frequency - betamethasone acetate-betamethasone sodium phosphate 6 mg injection (CELESTONE) 6 mg Injection - FOR ORTHO USE ONLY - lidocaine (PF) 10 mg/mL (1 %) 2 mL injection (XYLOCAINE) 2 mL Injection - FOR ORTHO USE ONLY - betamethasone acetate-betamethasone sodium phosphate 6 mg injection (CELESTONE) 6 mg Injection - FOR ORTHO USE ONLY - lidocaine (PF) 10 mg/mL (1 %) 2 mL injection (XYLOCAINE) 2 mL Injection - FOR ORTHO USE ONLY Component Latest Ref Rng AND Units 12/08/2019 Protein, Total 6.3 - 8.0 g/dL 7.1 Albumin 3.9 - 4.9 g/dL 4.4 Calcium 8.5 - 10.2 mg/dL 9.9 Bilirubin, Total 0.2 - 1.3 mg/dL 0.2 Alkaline Phosphatase 34 - 123 U/L 65 AST 13 - 35 U/L 24 Glucose 74 - 99 mg/dL 117 (H) BUN 7 - 21 mg/dL 13 Creatinine 0.58 - 0.96 mg/dL 0.96 Sodium 136 - 144 mmol/L 138 Potassium 3.7 - 5.1 mmol/L 4.6 Chloride 97 - 105 mmol/L 98 CO2 22 - 30 mmol/L 25 Anion Gap 9 - 18 mmol/L 15 ALT 7 - 38 U/L 13 eGFR- >60 eGFR-All Other Races . 56 WBC 3.70 - 11.00 k/uL 5.25 RBC 3.90 - 5.20 m/uL 3.92 Hemoglobin 11.5 - 15.5 g/dL 12.0 Hematocrit 36.0 - 46.0 % 38.5 MCV 80.0 - 100.0 fL 98.2 MCH 26.0 - 34.0 pG 30.6 MCHC 30.5 - 36.0 g/dL 31.2 RDW-CV 11.5 - 15.0 % 13.1 Platelet Count 150 - 400 k/uL 333 MPV 9.0 - 12.7 fL 10.0 Absolute nRBC <0.01 k/uL <0.01 Cholesterol, Total <200 mg/dL 132 Triglyceride <150 mg/dL 100 HDL Cholesterol >39 mg/dL 64 LDL Cholesterol <100 mg/dL 48 Non HDL Cholesterol <130 mg/dL 68 Fasting Time hrs 12 VLDL Cholesterol <30 mg/dL 20 TC:HDL Ratio <5.10 2.06 LDL:HDL Ratio <2.54 0.75 Hemoglobin A1C 4.3 - 5.6 % 7.2 (H) Estimated Average Glucose mg/dL 160 TSH 0.270 - 4.200 uU/mL 2.880 Free T4 0.9 - 1.7 ng/dL 1.3 Assessment and Plan 1. Essential hypertension - ICD9: 401.9, ICD10: I10 (primary diagnosis) - good control - Continue current medication(s) - Encouraged dietary sodium restriction/DASH diet - Recommended regular aerobic exercise. - Goal of BP <130/80 2. Chronic bilateral low back pain with bilateral sciatica - ICD9: 724.2, 724.3, 338.29, ICD10: M54.42, M54.41, G89.29 s/p fusion with increased pain, recent ER visit for low back pain. Today increased her dose of gabapentin from 600 mg twice yamilex ly to 600 mg in the morning and 100 mg at bedtime. Addition of Celebrex for 1 month to see if this helps, take with famotidine to protect stomach, avoid GERD symptoms. Will refer to local pain management with [facility], Dr Lopez. 3. Controlled type 2 diabetes mellitus without complication, without long-term current use of insulin (HCC) - ICD9: 250.00, ICD10 : E11.9 Controlled. - Continue current medications - HGB A1C - COMP METABOLIC PANEL - CBC - LIPID PANEL BASIC - ALBUMIN/CREAT RATIO RND UR 4. Hyperlipidemia, unspecified hyperlipidemia type - ICD9: 2 72.4, ICD10: E78.5 - COMP METABOLIC PANEL - LIPID PANEL BASIC 5. Iron deficiency anemia, unspecified iron deficiency anemi a type - ICD9: 280.9, ICD10: D50.9 - CBC 6. Acquired hypothyroidism - ICD9: 244.9, ICD10: E03.9 - Instructed patient on importance of taking on an empty sto mach either first thing in the morning or at bedtime. Stable - COMP METABOLIC PANEL 7. Pernicious anemia - ICD9: 281.0, ICD10: D51.0 - VITAMIN B12 BLOOD 8. Folate deficiency - ICD9: 266.2, ICD10: E53.8 9. TSH (thyroid-stimulating hormone deficiency) - ICD9: 244. 8, ICD10: E03.8 - TSH BLD - T4 FREE/FREE THYROX 10. Nonrheumatic aortic valve stenosis - ICD9: 424.1, ICD10: I35.[address] Iraheta, NO current CP, syncope or other ca rdiac complaints follow up one month back pain, follow up PCP 6 mos, continue with Q2 mo visits for chronic pain medication. 30 min spent in visit Jake Fish APRN.LAB ASST tsh on 2019-12-08 TSH Qn 2.880 0.270-4.200 uU/mL Normal 12-08-2019 [facility] (11097) Comment: Performed By: #### LIPB, TSH , HBA1C, CMP, CBC, FT4 ####[facility] [address] [place], [place] [phone] lipid panel, basic on 2019-12-08 Cholesterol [Mass/Vol] 132 <200 mg/dL Normal 12-07- 020 [facility] (10698) Comment: Result Comment: <200 mg/dL, Desirable 200-239 mg/dL, Borderline hi gh >239 mg/dL, High Performed By: #### LIPB, TSH , HBA1C, CMP, CBC, FT4 ####[facility] [place], [place] [phone] Cholesterol in HDL 64 >39 mg/dL Normal 12-08-2019 [facility] [Mass/Vol] (23453) Comment: Result Comment: 40-59 mg/dL, Acceptable >59 mg/dL, High: Negative ri sk factor for coronary heart disease <40 mg/dL, Low: Positive ris k factor for coronary heart disease Performed By: #### LIPB, TSH , HBA1C, CMP, CBC, FT4 ####[place] [address] [place], [place] [phone] Cholesterol in LDL 48 <100 mg/dL Normal 12-08-2019 [facility] [Mass/Vol] [place] (99846) Comment: Result Comment: <100 mg/dL, Optimal 100-129 mg/dL, Near optimal/ above optimal 130-159 mg/dL, Borderline hi gh 160-189 mg/dL, High >189 mg/dL, Very high Secondary prevention optimal LDL Cholesterol levels are recommended to be < 70 mg/dL Performed By: #### LIPB, TSH , HBA1C, CMP, CBC, FT4 ####[facility] [place], [place] [phone] Fasting Time 12 hrs Normal 12-08-2019 [facility] (23088) Comment: Performed By: #### LIPB, TSH , HBA1C, CMP, CBC, FT4 ####[place] [address] [place], [place] [phone] LDL:HDL Ratio 0.75 <2.54 Normal 12-08-2019 [facility] (58441) Comment: Result Comment: Reference: 1. National Cholesterol Educ ation Program ATP III Guideline At-A-Glance Quick Desk Reference: National Heart, Lung, and Blood [place]. National Institutes of Health. 2001: NIH Publication No. 01-3305. 2. An International Atherosc lerosis Society position paper: global recommendations for the management of dyslipidemia: executive summary, Atherosclerosis. 2014: 232(2):410-413. Performed By: #### LIPB, TSH , HBA1C, CMP, CBC, FT4 ####[place] [address] [place], [place] [phone] Non HDL Cholesterol 68 <130 mg/dL Normal 12-08-2019 [facility] (59836) Comment: Result Comment: <130 mg/dL, Optimal 130-159 mg/dL, Near optimal/ above optimal 160-189 mg/dL, Borderline hi gh 190-219 mg/dL, High >219 mg/dL, Very high Secondary prevention optimal non HDL Cholesterol levels are recommended to be < 100 mg/dL Performed By: #### LIPB, TSH , HBA1C, CMP, CBC, FT4 ####[place] [address] [place], [place] [phone] TC:HDL Ratio 2.06 <5.10 Normal 12-08-2019 [facility] (46992) Comment: Performed By: #### LIPB, TSH , HBA1C, CMP, CBC, FT4 ####[place] [address] [place], [place] [phone] Triglyceride [Mass/Vol] 100 <150 mg/dL Normal 2019 [facility] (82833) Comment: Result Comment: <150 mg/dL, Normal 150-199 mg/dL, Borderline hi gh 200-499 mg/dL, High >499 mg/dL, Very high Performed By: #### LIPB, TSH , HBA1C, CMP, CBC, FT4 ####[place] [address] [place], [place] [phone] VLDL Cholesterol 20 <30 mg/dL Normal 12-08-2019 [facility] (82208) Comment: Performed By: #### LIPB, TSH , HBA1C, CMP, CBC, FT4 ####[place] [address] [place], [place] [phone] hemoglobin a1c on 2 HbA1c (Bld) [Mass fraction] 7.2 4.3-5.6 % High [facility] (45163) Comment: Result Comment: [place] Jessica betes Association guidelines indicate that patients with HgbA1c in the range 5.7-6.4% are at increased risk for development of diabetes, and intervention by lifestyle modification may be beneficial. HgbA1c greater o r equal to 6.5% is considered diagnostic of diabetes. Performed By: #### LIPB, TSH , HBA1C, CMP, CBC, FT4 ####[place] [address] [place], [place] [phone] HbA1c (Bld) [Mass fraction] 160 mg/dL Normal [facility] (79448) Comment: Result Comment: eAG: (Estima rod average glucose) is a calculated value from HgbA1c and is training representative of the average blood glucose level in the last 2-3 month period. Performed By: #### LIPB, TSH , HBA1C, CMP, CBC, FT4 ####[place] [address] [place] [phone] free t4 on Free T4 [Mass/Vol] 1.3 0.9-1.7 ng/dL Normal 12-08-2019 [facility] (92973) Comment: Performed By: #### LIPB, TSH , HBA1C, CMP, CBC, FT4 ####[place] [address] [place], [place] [phone] comp metabolic panel on 2019-12-08 Albumin [Mass/Vol] 4.4 3.9-4.9 g/dL Normal 12-08-2019 [facility] (61619) Comment: Performed By: #### LIPB, TSH , HBA1C, CMP, CBC, FT4 ####[place] [address] [place], [place] [phone] ALP [Catalytic activity/Vol] 65 34-123 U/L Normal 0 12-08-2019 [facility] (89790) Comment: Performed By: #### LIPB, TSH , HBA1C, CMP, CBC, FT4 ####[place] [address] [place], [place] [phone] ALT [Catalytic activity/Vol] 13 7-38 U/L Normal 0 12-08-2019 [facility] (56946) Comment: Performed By: #### LIPB, TSH , HBA1C, CMP, CBC, FT4 ####[facility] [place], [place] [phone] Anion gap [Moles/Vol] 15 9-18 mmol/L Normal 12-08-19 20 [facility] (92774) Comment: Performed By: #### LIPB, TSH , HBA1C, CMP, CBC, FT4 ####[facility] [place], [place] [phone] AST [Catalytic activity/Vol] 24 13-35 U/L Normal 0 12-08-2019 [facility] (52426) Comment: Performed By: #### LIPB, TSH , HBA1C, CMP, CBC, FT4 ####[facility] [place], [place] [phone] Bilirubin [Mass/Vol] 0.2 0.2-1.3 mg/dL Normal 0 [facility] (85692) Comment: Performed By: #### LIPB, TSH , HBA1C, CMP, CBC, FT4 ####[facility] [place], [place] [phone] Calcium [Mass/Vol] 9.9 8.5-10.2 mg/dL Normal 12-08-2019 [facility] (31780) Comment: Performed By: #### LIPB, TSH , HBA1C, CMP, CBC, FT4 ####[facility] [address] [place], [place] [phone] Chloride [Moles/Vol] 98 97-105 mmol/L Normal 0 [facility] (78351) Comment: Performed By: #### LIPB, TSH , HBA1C, CMP, CBC, FT4 ####[facility] [place], [place] [phone] CO2 [Moles/Vol] 25 22-30 mmol/L Normal 12-08-2019 [facility] (14926) Comment: Performed By: ####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 daily. CRANBERRY EXTRACT 200 MG CAPS* Take 800 mg by mouth. BLOOD SUGAR DIAGNOSTIC STRIPS Test blood sugar(s) 1 times d* GLIMEPIRIDE 1 MG TABLET Take 1 tablet by mouth daily * VITS,CALCIUM 21-IRON* Take by mouth. Pt is taking 2 * BUPROPION XL 150 MG TAB Take 1 tablet by mouth once d* POTASSIUM CHLORIDE ER 10 MEQ * Take 1 capsule by mouth once * Patient not taking: Reported on 07/06/2019 BLOOD-GLUCOSE METER KIT Glucose Meter of Choice - Kit* LANCETS Test blood sugar(s) 1 times d* BLOOD-GLUCOSE METER KIT Glucose Meter of Choice, insu* BLOOD SUGAR DIAGNOSTIC STRIPS Test blood sugar(s) 1x daily.* BD LUER-MARLIN SYRINGE 3 ML 23 X* USE FOR B-12 INJECTIONS EVERY * MULTIVITAMIN CAPSULE Take 1 capsule by mouth once * CHOLECALCIFEROL (VITAMIN D3) * Take 2 tablets by mouth once * MELATONIN 10 MG TABLET Take 10 mg by mouth daily at * ACYCLOVIR 5 % TOPICAL OINTMENT Apply 6 times daily for 7 day * LANCETS Use as instructed Problem List As Of Date 11/23/2019 Noted Resolved ROTATOR CUFF SYND NOS [M71.9, M67.919] 12/22/2002 Lateral epicondylitis of elbow [M77.10] 12/22/2002 0 JOINT PAIN-UP/ARM [M25.529] 02/02/2003 TRIGGER FINGER [M65.30] 03/30/2003 More... Follow-up examination following surgery [V67.0] 07/18/2004 1 Other tenosynovitis of hand and wrist [M65.849,*05/01/2005 1 Hyperlipidemia [E78.5] More... Iron deficiency anemia [D50.9] More... PERNICIOUS ANEMIA [D51.0] More... More... More... Diabetes mellitus type 2, controlled, without c*05/07/2005 More... Pain in soft tissues of limb [M79.609] 05/15/2005 04/18/2010 INSOMNIA NOS [G47.00] 07/25/2005 More... OSTEOPENIA [M89.9, M94.9] 10/23/2005 More... PEPTIC ULCER NOS [K27.9] 10/23/2005 Unspecified ventral hernia without mention of o*10/23/2005 1 DIVERTICULOSIS OF COLON W/O BLEED [K57.30] 10/23/2005 IRRITABLE COLON [K58.9] 11/28/2005 Abdominal pain, right upper quadrant [R10.11] 04/05/2006 RECURRENT UTI's [N39.0] 03/22/2008 04/18/2010 Fibromyalgia [M79.7] 06/29/2008 More... Abdominal pain, other specified site [R10.9] 06/29/200803/31 HEMORRHOIDS NOS [K64.9] 06/29/2008 DISLOC DIST RADIOULN-CLOSE [S63.016A] 07/13/2008 Abdominal pain, generalized [R10.84] 10/29/2008 04/18/2010 PULMONARY NODULE [R22.2] 01/17/2009 More... 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] 07/16/2011 Generalized abdominal pain [R10.84] 07/16/2011 Urinary retention [R33.9] 07/16/2011 Hypothyroidism [E03.9] 01/07/2012 Urgency of urination [R39.15] 03/19/2012 Urge incontinence [N39.41] 03/19/2012 Trigger index finger of right hand [M65.321] 12/25/2012 DJD (degenerative joint disease) [M19.90] Marital conflict [Z63.0] 03/15/2014 Vitamin D deficiency [E55.9] 07/13/2014 Attention deficit hyperactivity disorder (ADHD)*02/10/2015 Bilateral low back pain with right-sided sciati*06/02/2015 Right hip pain [M25.551] 06/02/2015 Recurrent major depressive disorder, in partial*09/26/2015 Pain in right hip [M25.551] 10/25/2015 Trochanteric bursitis of both hips [M70.61, M70*10/25/2015 Chronic bilateral low back pain without sciatic*10/25/2015 Trigger little finger of left hand [M65.352] 01/23/2016 Trigger ring finger of left hand [M65.342] 01/23/2016 Trigger middle finger of left hand [M65.332] 01/23/2016 Bilateral hip pain [M25.551, M25.552] 09/20/2016 Greater trochanteric bursitis of both hips [M70*09/20/2016 Status post bariatric surgery [Z98.84] 10/11/2016 Dysuria [R30.0] 11/21/2017 Nonrheumatic aortic valve stenosis [I35.0] 12/19/2018 HTN, goal below 130/80 [I10] 12/19/2018 Lumbar back pain with radiculopathy affecting l*10/13/2019 Prescriptions ordered this encounter Disp Refills Start End HYDROCODONE 5 MG-ACETAMINOPHEN 325 M* 56 t* 0 11/24/201903/2020 Route: ORAL Sig: Take 1 tablet by mouth every 6 hours as needed for Pain for up to 14 days. Medications Discontinued During This Encounter HYDROcodone-acetaminophen (NORCO) 5-* 56 t* 0 10/26/201911/23 Route: ORAL Sig: Take 1 tablet by mouth every 6 hours as needed for Pain for up to 14 days. Do not start before October 26, 2019. Disc: Reason for discontinue is not on file. Encounter Status:Closed by TREASURE BALLARD on 11/27/19 progress on 2019-10 PROGRESS HNO ID: [id number] Normal 11-16-2019 [facility] Author: Vidal Dennis [place] Service: ? ([id number]) Author Type: Physician Type: Progress Notes Filed: 11/16/2019 12:37 PM Note Text: Vidal Dennis MD Department of Orthopaedics Orthopaedics [address] [facility] [address] Dept: [phone] Dept November 16, 2019 CHIEF COMPLAINT: Established Patient and Pain of the Left Hi p HPI Patient returns with quite a bit of trouble in the left hip and even down to the knee. She reports 10 out of 10 sharp and stabbing yenny n. She did state that the previous injection helped a small amount. Is also a bit of a difficult situation as she has a long history of lumbar is sues and prior surgery. Therapy for the leg has given her troubles in the p ast as well. ASSESSMENT: M70.62 Trochanteric bursitis of left hip (primary encounter diagnosis) M25.552 Left hip pain PLAN: She certainly has tenderness directly over the greater troch anter and short external rotators. Certainly a component of this is fr om bursitis, though difficult to tell what other symptoms she is having s econdary to a limited exam. Her plain films of the hip appear to show only some mild arthritis and I do not suspect this is joint pathology. I do not think it can all be related to radiculopathy as well. We will give her a repeat injection today. I really encourag ed her with continued strengthening and stretching exercises. Even a TEN S unit may be helpful. Ms. Sonny M Sonny was advised as to contrast therapie s and/or to take analgesics/anti-inflammatories as needed and all contra indications were reviewed. OBJECTIVE: Ms. Sonny Dennis is a pleasant 79 year old in no bari arent distress. Gen:There were no vitals taken for this visit. nl development, non obese, no deformities ENT: Normocephalic, normal hearing, moist mucosa CV: Pulses:DP/PT= 2+ and symmetric, capillary refill < 2 sec s, no peripheral edema/varicosities Skin: no rash, bruising or lesions. Good turgor. Psych: cooperative and appropriate, alert and oriented x 3, good mood and affect. Musculoskeletal: Quite a labored gait as well as difficulty getting up to the exam table. She is exquisitely tender over the greater trochanter and ab ductors, short external rotators. Pain with resisted abduction as well. Large Joint Arthro/Inj: L greater trochanteric bursa The risks, benefits and alternatives of the procedure were r eviewed with the patient/surrogate, who agreed to proceed. Written Consent Obtained: N/A Sign In Communication: Completed Time Out: Time Out completed The Time-Out verifies the correct patient, procedure, side /site, position (if applicable) and completion and review of [facility] r isk assessment/protocols (if appropriate): Affirmation of Time Out: Yes Signout Discussion: Yes 11/16/2019 9:29 AM The procedure site was prepped in the usual sterile fashion. Allergies were reviewed Site: L greater trochanteric bursa Medications: 6 mg betamethasone acetate-betamethasone sodium phosphate 6 mg/mL Anesthetics: 2 mL lidocaine (PF) 10 mg/mL (1 %) Outcome: Tolerated well, no immediate complications Post-injection instructions were reviewed with the patient a nd the patient voiced understanding of these instructions. Imaging: Deferred today Supporting Subjective Information Below: Past Surgical History: PAST SURGICAL HISTORY Procedure Laterality Date - COLONOSCOP W/ OR W/O [facility] SPEC 01/29 Colonoscopy - COLONOSCOP W/ OR W/O [facility] SPEC 01/29, 04/05/06 - COLONOSCOPY W/BX 10/29/08 Diverticulosis - COLONOSCOPY W/BX 07/18/11 Repeat in - EGD W/O [facility] SPECIMEN W/BX 10/02, 04/05/06 - EGD W/O [facility] SPECIMEN W/BX 10/29/08 Patent gastrojejunostomy - EGD W/O OR W/BRUSH/WASH EGD - HYSTEROSCOPY, DIAGNOSTIC (SEPARATE 1997 Hysteroscopy - INCISE FINGER TENDON SHEATH 02/20/2013 Right index trigger finger release - LIGATE FALLOPIAN TUBE Tubal ligation - PAST SURGICAL HISTORY OF vagotomy - PAST SURGICAL HISTORY OF 2005 Right thumb and middle trigger finger release - PAST SURGICAL HISTORY OF Right shoulder - PAST SURGICAL HISTORY OF 1997 Right elbow - [facility] - PAST SURGICAL HISTORY OF Left 01-27-16 left middle, ring and small trigger finger releases - REMOVAL GALLBLADDER 1974 Cholecystectomy - REMV STOM,PART,DISTAL,GASTRODUOD 07/04/2000 Gastrectomy, partial, X-2 - REPAIR INCISIONAL HERNIA,REDUCIBLE 06/25/2001 Hernia repair, incisional - WRIST ARTHROSCOP,EXCIS TRIANG CART 2008 Right wrist Medications: Current Outpatient Medications Medication Sig - metFORMIN (GLUCOPHAGE) 850 mg tablet Take 1 tablet by mout h twice daily with meals. ID# [id number] - cyanocobalamin 1,000 mcg/mL 1 mL IM every 3 weeks - HYDROcodone-acetaminophen (NORCO) 5-325 mg per tablet Take 1 tablet by mouth every 6 hours as needed for Pain for up to 14 days. Do not start before October 26, 2019. - levothyroxine (SYNTHROID) 50 mcg tablet Take 1 tablet by m outh daily before breakfast. ID# [id number] - gabapentin (NEURONTIN) 300 mg capsule Take 2 capsules by m outh twice daily for 180 days. ID# [id number] - lisinopril (ZESTRIL, PRINIVIL) 10 mg tablet Take 1 tablet by mouth once daily. As directed ID# [id number] - cyclobenzaprine (FLEXERIL) 10 mg tablet Take 1 tablet by m outh daily at bedtime. ID# [id number] - atorvastatin (LIPITOR) 20 mg tablet Take 1 tablet by mouth once daily. - mirtazapine (REMERON) 15 mg tablet Take 1 tablet by mouth daily at bedtime. ID# [id number] - PARoxetine (PAXIL) 10 mg tablet Take 1 tablet by mouth onc e daily. ID# [id number] - calcium carbonate (CALCIUM 600 ORAL) Take by mouth. - Vitamin E, dl, acetate, (VITAMIN E) 400 unit capsule Take 400 Units by mouth once daily. - cyanocobalamin (VITAMIN B-12) 500 mcg tab tab(s) Take by m outh once daily. - Cranberry Extract 200 mg cap Take 800 mg by mouth. - blood sugar diagnostic (BLOOD GLUCOSE TEST) test strip Willie t blood sugar(s) 1 times daily. Dx: Type 2 DM - Controlled E11.9 Ins ulin: No - glimepiride (AMARYL) 1 mg tablet Take 1 tablet by mouth da eb with breakfast. ID# [id number] - PNV Cmb#55-[id number] Acid ( COMPLETE) 14 mg iron- 400 mcg tab Take by mouth. Pt is taking 2 tablets daily - buPROPion XL (WELLBUTRIN XL) 150 mg 24 hr tablet Take 1 ta blet by mouth once daily. ID# [id number] - Blood-Glucose Meter monitoring kit Glucose Meter of Choice - Kit - Dx: Type 2 DM - Controlled E11.9 Test blood sugar 1 time daily. - Lancets lancets Test blood sugar(s) 1 times daily. Dx: Typ e 2 DM - Controlled E11.9 Insulin: No - Blood-Glucose Meter monitoring kit Glucose Meter of Choice , insurance preferred - Kit - Dx: Type 2 DM - Controlled E11.9 - blood sugar diagnostic (BLOOD GLUCOSE TEST) test strip Willie t blood sugar(s) 1x daily. Dx: Controlled DM type 2. Insulin: No - Multivitamin capsule Take 1 capsule by mouth once daily. - cholecalciferol (VITAMIN D) 1,000 unit tab tablet Take 2 t ablets by mouth once daily. - melatonin 10 mg tab Take 10 mg by mouth daily at bedtime. - Lancets (ACCU-CHEK MULTICLIX LANCET) Misc lancets Use as i nstructed - metFORMIN (GLUCOPHAGE) 850 mg tablet Take 1 tablet by mout h twice daily with meals. ID# [id number] - furosemide (LASIX) 20 mg tablet Take 1 tablet by mouth onc e daily. as needed for leg swelling. (Patient not taking: Reported on ) - nystatin (MYCOSTATIN) 100,000 unit/mL suspension One teasp oon swish in mouth for several minutes then swallow (or expectorate) four times daily. Use until gone. (Patient not taking: Reported on 11/16/2019 ) - famotidine (PEPCID) 20 mg tablet Take 1 tablet by mouth tw ice daily. (Patient not taking: Reported on 11/16/2019 ) - perflutren lipid microspheres (DEFINITY) 1.1 mg/mL injecti on (to be provided with echo procedure) Inject 1.3 mL intravenously as directed. - potassium chloride SR (MICRO-K) 10 mEq CR capsule Take 1 c apsule by mouth once daily. once daily for three days then once daily when taking furosemide. (Patient not taking: Reported on 07/06/2019 ) - BD LUER-MARLIN SYRINGE 3 mL 23 x 1 syrg USE FOR B-12 INJECTI ONS EVERY 3 WEEKS OR DIRECTED - acyclovir (ZOVIRAX) 5 % ointment Apply 6 times daily for 7 days for cold sores Current Facility-Administered Medications Medication Dose Route Frequency - betamethasone acetate-betamethasone sodium phosphate 6 mg injection (CELESTONE) 6 mg Injection - FOR ORTHO USE ONLY - lidocaine (PF) 10 mg/mL (1 %) 2 mL injection (XYLOCAINE) 2 mL Injection - FOR ORTHO USE ONLY Allergies: Macrobid [Nitrofurantoin Monohyd/M-Cryst]; Adhesi ve Tape (Rosins); Ativan [Lorazepam]; Benzodiazepines; Ciprofloxacin ; Demerol [Meperidine Hcl]; Latex; Sulfa (Sulfonamide Antibiotics); Xa nthines ROS: General (negative for fatigue, malaise, weight loss/gain) HEENT (negative for headache, earache, recent vision changes , sinus pain, sore throat) Respiratory (no recent shortness of breath, hem optysis) CV (negative for chest tightness, palpitations) Musculoskeletal (see HPI) Psych (no depression, anxiety) This note was partially generated using Compliance Control recogni tion system, and there may be some incorrect words, spellings, and punctu ation that were not noted in checking the note before saving. Vidal Dennis MD PROGRESS HNO ID: [id number] Normal 11-16-2019 [facility] Author: Syl Arreola [facility] Service: ? ([id number]) Author Type: ? Type: Progress Notes Filed: 11/16/2019 12:37 PM Note Text: AMB ROOMING INTAKE FLOWSHEET DATA Risk Screening Do you have concerns about personal safety or safety in the home?: No Pain Pain Level: 10 Pain Location: Knee-Left Description: Sharp, Stabbing Duration Amount of Time: (ongoing) Frequency: Continuous Intervention: Medication, Cold Patient here today 10 weeks post visit trochanteric bursitis left hip with injection given. Patient states injection only helped a smal l amount. She reports pain the entire thigh and into the left buttock. Stairs are really difficult for her. cnov on 2019-11-16 CNOV Office Visit (ORTHWS) Normal 11-16-[address] [place] [facility] SONNY DENNIS ([id number]) 1940 [facility] Date Time Provider Department ([id number]) 11/16/19 9:20 AM VIDAL DENNIS During your visit today, we recorded the following informati on about you: Syl Arreola Ma 11/16/2019 12:37 PM Signed [facility] ROOMING INTAKE FLOWSHEET DATA Risk Screening Do you have concerns about personal safety or safety in the home?: No Pain Pain Level: 10 Pain Location: Knee-Left Description: Sharp, Stabbing Duration Amount of Time: (ongoing) Frequency: Continuous Intervention: Medication, Cold Patient here today 10 weeks post visit trochanteric bursitis left hip with injection given. Patient states injection only helped a smal l amount. She reports pain the entire thigh and into the left buttock. Sta irs are really difficult for her. Vidal Dennis MD 11/16/2019 12:37 PM Signed Vidal Dennis MD Department of Orthopaedics Orthopaedics [address] [place] [id number] Dept: [phone] Dept November 16, 2019 CHIEF COMPLAINT: Established Patient and Pain of the Left Hi p HPI Patient returns with quite a bit of trouble in the lef t hip and even down to the knee. She reports 10 out of 10 sharp and stabbing pain. She did state that the previous injection helped a small amount. Is also a bit of a difficult situation as she has a long history of lumbar issu es and prior surgery. Therapy for the leg has given her troubles in the p ast as well. ASSESSMENT: M70.62 Trochanteric bursitis of left hip (primary encounter diagnosis) M25.552 Left hip pain PLAN: She certainly has tenderness directly over the greater tro chanter and short external rotators. Certainly a component of this is from bur sitis, though difficult to tell what other symptoms she is having secondar y to a limited exam. Her plain films of the hip appear to show only some mild arthritis and I do not suspect this is joint pathology. I do not think it can all be related to radiculopathy as well. We will give her a repeat injection today. I really encourag ed her with continued strengthening and stretching exercises. Even a TEN S unit may be helpful. Ms. Sonny Dennis was advised as to contrast th erapies and/or to take analgesics/anti-inflammatories as needed and all contraindic ations were reviewed. OBJECTIVE: Ms. Sonny Dennis is a pleasant 79 year old in no a pparent distress. Gen:There were no vitals taken for this visit. nl development, non obese, no deformities ENT: Normocephalic, normal hearing, moist mucosa CV: Pulses:DP/PT= 2+ and symmetric, capillary refill < 2 secs, no peripheral edema/varicosities Skin: no rash, bruising or lesions. Good turgor. Psych: cooperative and appropriate, alert and oriented x 3, good mood and affect. Musculoskeletal: Quite a labored gait as well as difficulty getting up to the exam table. She is exquisitely tender over t he greater trochanter and abductors, short external rotators. Pain with resisted abduction as well. Large Joint Arthro/Inj: L greater trochanteric bursa The risks, benefits and alternatives of the procedure were reviewed with the patient/surrogate, who agreed to proceed. Written Consent Obtained: N/A Sign In Communication: Completed Time Out: Time Out completed The Time-Out verifies the correct patient, procedure, side/site, position (if applicable) and completion and review of fire risk assessm ent/protocols (if appropriate): Affirmation of Time Out: Yes Signout Discussion: Yes 11/16/2019 9:29 AM The procedure site was prepped in the usual sterile fashion. Allergies were reviewed Site: L greater trochanteric bursa Medications: 6 mg betamethasone acetate- betamethasone sodium phosphate 6 mg/mL Anesthetics: 2 mL lidocaine (PF) 10 mg/mL (1 %) Outcome: Tolerated well, no immediate complications Post-injection instructions were reviewed with the patient a nd the patient voiced understanding of these instructions. Imaging: Deferred today Supporting Subjective Information Below: Past Surgical History: PAST SURGICAL HISTORY Procedure Laterality Date - COLONOSCOP W/ OR W/O BRSH SPEC 01/29 Colonoscopy - COLONOSCOP W/ OR W/O BRSH SPEC 01/29, 04/05/06 - COLONOSCOPY W/BX 10/29/08 Diverticulosis - COLONOSCOPY W/BX 07/18/11 Repeat in - EGD W/O BRSH SPECIMEN W/BX 10/02, 04/05/06 - EGD W/O BRSH SPECIMEN W/BX 10/29/08 Patent gastrojejunostomy - EGD W/O OR W/BRUSH/WASH EGD - HYSTEROSCOPY, DIAGNOSTIC (SEPARATE 1997 Hysteroscopy - INCISE FINGER TENDON SHEATH 02/20/2013 Right index trigger finger release - LIGATE FALLOPIAN TUBE Tubal ligation - PAST SURGICAL HISTORY OF vagotomy - PAST SURGICAL HISTORY OF 2005 Right thumb and middle trigger finger release - PAST SURGICAL HISTORY OF Right shoulder - PAST SURGICAL HISTORY OF 1997 Right elbow - [facility] - PAST SURGICAL HISTORY OF Left 16 left middle, ring and small trigger finger releases - REMOVAL GALLBLADDER 1974 Cholecystectomy - REMV STOM,PART,DISTAL,GASTRODUOD 07/04/2000 Gastrectomy, partial, X-2 - REPAIR INCISIONAL HERNIA,REDUCIBLE 06/25/2001 Hernia repair, incisional - WRIST ARTHROSCOP,EXCIS TRIANG CART 2008 Right wrist Medications: Current Outpatient Medications Medication Sig - metFORMIN (GLUCOPHAGE) 850 mg tablet T génesis 1 tablet by mouth twice daily with meals. ID# [id number] - cyanocobalamin 1,000 mcg/mL 1 mL IM every 3 weeks - HYDROcodone-acetaminophen (NORCO) 5-32 5 mg per tablet Take 1 tablet by mouth every 6 hours as needed for Pain for up to 14 da ys. Do not start before October 26, 2019. - levothyroxine (SYNTHROID) 50 mcg tablet Take 1 tablet by mouth daily before breakfast. ID# [id number] - gabapentin (NEURONTIN) 300 mg capsule Take 2 capsule s by mouth twice daily for 180 days. ID# [id number] - lisinopril (ZESTRIL, PRINIVIL) 10 mg tablet Take 1 tablet by mouth once daily. As directed ID# [id number] - cyclobenzaprine (FLEXERIL) 10 mg tablet Take 1 tablet by m outh daily at bedtime. ID# [id number] - atorvastatin (LIPITOR) 20 mg tablet Take 1 tablet by mouth once daily. - mirtazapine (REMERON) 15 mg tablet Take 1 tabl et by mouth daily at bedtime. ID# [id number] - PARoxetine (PAXIL) 10 mg tablet Take 1 tablet by mouth onc e daily. ID# [id number] - calcium carbonate (CALCIUM 600 ORAL) Take by mouth. - Vitamin E, dl, acetate, (VITAMIN E) 40 0 unit capsule Take 400 Units by mouth once daily. - cyanocobalamin (VITAMIN B-12) 500 mcg tab tab(s) Sofiya e by mouth once daily. - Cranberry Extract 200 mg cap Take 800 mg by mouth. - blood sugar diagnostic (BLOOD GLUCOSE TEST) test strip Test blood sugar(s) 1 times daily. Dx: Type 2 DM - Controlled E11.9 Insulin: No - glimepiride (AMARYL) 1 mg tablet Take 1 tablet by mouth daily with breakfast. ID# [id number] - PNV Cmb#74-Sllg-Rqsuz Acid ( COMPLETE) 14 mg iron- 400 mcg tab Take by mouth. Pt is taking 2 tablets daily - buPROPion XL (WELLBUTRIN XL) 150 mg 24 hr tablet Take 1 tablet by mouth once daily. ID# [id number] - Blood-Glucose Meter monitoring kit Glucose Met er of Choice - Kit - Dx: Type 2 DM - Controlled E11.9 Test blood sugar 1 time daily. - Lancets lancets Test blood sugar(s) 1 times daily. Dx: Typ e 2 DM - Controlled E11.9 Insulin: No - Blood-Glucose Meter monitoring kit Glucose Meter of Choice , insurance preferred - Kit - Dx: Type 2 DM - Controlled E11.9 - blood sugar diagnostic (BL OOD GLUCOSE TEST) test strip Test blood sugar(s) 1x daily. Dx: Controlled DM type 2. Insulin: No - Multivitamin capsule Take 1 capsule by mouth once daily. - cholecalciferol (VITAMIN D) 1,000 unit tab tablet Take 2 tablets by mouth once daily. - melatonin 10 mg tab Take 10 mg by mouth daily at bedtime. - Lancets (ACCU-CHEK MULTICLIX LANCET) Misc lancets Use as i nstructed - metFORMIN (GLUCOPHAGE) 850 mg tablet T génesis 1 tablet by mouth twice daily with meals. ID# [id number] - furosemide (LASIX) 20 mg tablet Take 1 tablet by mouth once daily. as needed for leg swelling. (Patient not taking: Reported on 11/16/2019 ) - nystatin (MYCOSTATIN) 100,000 unit/mL suspension One teaspoon swish in mouth for several minutes then swallow (or expectorate ) four times daily. Use until gone. (Patient not taking: Reported on 11/16/2019 ) - famotidine (PEPCID) 20 mg tablet Take 1 tablet by mouth twice daily. (Patient not taking: Reported on 11/16/2019 ) - perflutren lipid microspheres (DEFINIT Y) 1.1 mg/mL injection (to be provided with echo procedure) Inject 1.3 mL intravenously as directed . - potassium chloride SR (MICRO-K) 10 mEq CR capsule Take 1 capsule by mouth once daily. once daily for three days then once daily when taking furosemide. (Patient not taking: Reported on 07/06/2019 ) - BD LUER-MARLIN SYRINGE 3 mL 23 x 1 syrg USE FOR B-12 INJECTIONS EVERY 3 WEEKS OR DIRECTED - acyclovir (ZOVIRAX) 5 % ointment Apply 6 times daily for 7 days for cold sores Current Facility-Administered Medications Medication Dose Route Frequency - betamethasone acetate-betamethasone sodium phosphate 6 mg injection (CELESTONE) 6 mg Injection - FOR ORTHO USE ONLY - lidocaine (PF) 10 mg/mL (1 %) 2 mL injection (XYLOCAINE) 2 mL Injection - FOR ORTHO USE ONLY Allergies: Macrobid [Nitrofurantoin Monohyd/M-Cr yst]; Adhesive Tape (Rosins); Ativan [Lorazepam]; Benzodiazepines; Ciprofloxac in; Demerol [Meperidine Hcl]; Latex; Sulfa (Sulfonamide Antibiotics); Xanthines ROS: General (negative for fatigue, malaise, weight loss/gain) HEENT (negative for headache, earache, r ecent vision changes, sinus pain, sore throat) Respiratory (no recent shortness of breath, hemoptys is) CV (negative for chest tightness, palpitations) Musculoskeletal (see HPI) Psych (no depression, anxiety) This note was partially generated using [employer] system, and there may be some incorrect words, spellings, and punctuat ion that were not noted in checking the note before saving. Vidal Dennis MD Referring Provider: JAKE FISH ([facility]) [[id number]] Allergies As of Date: 11/16/2019 Noted Allergy Reaction MACROBID (NITROFURANTOIN MONOHYD/*01/10/2009 8 - GI Upset ADHESIVE TAPE (ROSINS) 03/03/2013 14 - Other: See Comments Comments: redness ATIVAN (LORAZEPAM) 12/27/2015 1 - Mental Status Change BENZODIAZEPINES 12/22/2002 1 - Mental Status Change Comments: ativan--made her loopy while in hospital CIPROFLOXACIN 04/27/2008 9 - Itching Comments: Oral Yeast Infection Thrush DEMEROL (MEPERIDINE HCL) 05/04/2005 LATEX 12/22/2002 2 - Rash Comments: Pt notes is a sensitivity, not allergy SULFA (SULFONAMIDE ANTIBIOTICS) 12/22/2002 14 - Other: See C omments Comments: Patient was treated for UTI in October 2011 after told nurse that reaction was just yeast infection (not vomiting as was previously listed) XANTHINES 12/22/2002 Comments: matti Date Reviewed: 11/16/2019 Reviewed by: Vidal Dennis - Fully Assessed Reason for Visit: Established Patient [175] Pain [78] Primary Visit Diagnosis:Trochanteric bursitis of left hip [M 70.62] Other Visit Diagnosis:Left hip pain [M25.552] Order(s):CONSULT TO ORTHOPAEDICS [9031] Order #: [id number] ty: 1 Large Joint Arthro/Inj: L greater trochanteric bursa [[id number] ] Order #: [id number] betamethasone acetate-betamethasone sodium phosphate 6 mg in jection (CELESTONE)Disp: Rfl: lidocaine (PF) 10 mg/mL (1 %) 2 mL injection (XYLOCAINE)Disp : Rfl: Prescriptions as of 11/16/2019 Sig: METFORMIN 850 MG TABLET Take 1 tablet by mouth twice * CYANOCOBALAMIN (VIT B-12) 1,0* 1 mL IM every 3 weeks HYDROCODONE 5 MG-ACETAMINOPHE* Take 1 tablet by mouth every * LEVOTHYROXINE 50 MCG TABLET Take 1 tablet by mouth daily * GABAPENTIN 300 MG CAPSULE Take 2 capsules by mouth twic* LISINOPRIL 10 MG TABLET Take 1 tablet by mouth once d* CYCLOBENZAPRINE 10 MG TABLET Take 1 tablet by mouth daily * ATORVASTATIN 20 MG TABLET Take 1 tablet by mouth once d* MIRTAZAPINE 15 MG TABLET Take 1 tablet by mouth daily * PAROXETINE 10 MG TABLET Take 1 tablet by mouth once d* CALCIUM 600 ORAL Take by mouth. VITAMIN E 400 UNIT CAPSULE Take 400 Units by mouth once * CYANOCOBALAMIN (VIT B-12) 500* Take by mouth once daily. CRANBERRY EXTRACT 200 MG CAPS* Take 800 mg by mouth. BLOOD SUGAR DIAGNOSTIC STRIPS Test blood sugar(s) 1 times d* GLIMEPIRIDE 1 MG TABLET Take 1 tablet by mouth daily * VITS,CALCIUM 21-IRON* Take by mouth. Pt is taking 2 * BUPROPION XL 150 MG TAB Take 1 tablet by mouth once d* BLOOD-GLUCOSE METER KIT Glucose Meter of Choice - Kit* LANCETS Test blood sugar(s) 1 times d* BLOOD-GLUCOSE METER KIT Glucose Meter of Choice, insu* BLOOD SUGAR DIAGNOSTIC STRIPS Test blood sugar(s) 1x daily.* MULTIVITAMIN CAPSULE Take 1 capsule by mouth once * CHOLECALCIFEROL (VITAMIN D3) * Take 2 tablets by mouth once * MELATONIN 10 MG TABLET Take 10 mg by mouth daily at * LANCETS Use as instructed METFORMIN 850 MG TABLET Take 1 tablet by mouth twice * FUROSEMIDE 20 MG TABLET Take 1 tablet by mouth once d* Patient not taking: Reported on 11/16/2019 NYSTATIN 100,000 UNIT/ML ORAL* One teaspoon swish in mouth f * Patient not taking: Reported on 11/16/2019 FAMOTIDINE 20 MG TABLET Take 1 tablet by mouth twice * Patient not taking: Reported on 11/16/2019 PERFLUTREN LIPID MICROSPHERES* Inject 1.3 mL intravenously a * POTASSIUM CHLORIDE ER 10 MEQ * Take 1 capsule by mouth once * Patient not taking: Reported on 07/06/2019 BD LUER-MARLIN SYRINGE 3 ML 23 X* USE FOR B-12 INJECTIONS EVERY * ACYCLOVIR 5 % TOPICAL OINTMENT Apply 6 times daily for 7 day * Medication notes this encounter FUROSEMIDE 20 MG TABLET >> Syl Arreola Ma 11/16/2019 9:02 AM >> SYL ARREOLA MA Mon November 16, 2019 9:02 AM Takes PRN. Problem List As Of Date 11/16/2019 Noted Resolved ROTATOR CUFF SYND NOS [M71.9, M67.919] 12/22/2002 Lateral epicondylitis of elbow [M77.10] 12/22/2002 0 JOINT PAIN-UP/ARM [M25.529] 02/02/2003 TRIGGER FINGER [M65.30] 03/30/2003 More... Follow-up examination following surgery [V67.0] 07/18/2004 1 Other tenosynovitis of hand and wrist [M65.849,*05/01/2005 1 Hyperlipidemia [E78.5] More... Iron deficiency anemia [D50.9] More... PERNICIOUS ANEMIA [D51.0] More... More... More... Diabetes mellitus type 2, controlled, without c*05/07/2005 More... Pain in soft tissues of limb [M79.609] 05/15/2005 04/18/2010 INSOMNIA NOS [G47.00] 07/25/2005 More... OSTEOPENIA [M89.9, M94.9] 10/23/2005 More... PEPTIC ULCER NOS [K27.9] 10/23/2005 Unspecified ventral hernia without mention of o*10/23/2005 1 DIVERTICULOSIS OF COLON W/O BLEED [K57.30] 10/23/2005 IRRITABLE COLON [K58.9] 11/28/2005 Abdominal pain, right upper quadrant [R10.11] 04/05/2006 RECURRENT UTI's [N39.0] 03/22/2008 04/18/2010 Fibromyalgia [M79.7] 06/29/2008 More... Abdominal pain, other specified site [R10.9] 06/29/200803/31 HEMORRHOIDS NOS [K64.9] 06/29/2008 DISLOC DIST RADIOULN-CLOSE [S63.016A] 07/13/2008 Abdominal pain, generalized [R10.84] 10/29/2008 04/18/2010 PULMONARY NODULE [R22.2] 01/17/2009 More... ATROPHIC VAGINITIS [N95.2] 01/17/2009 FELIPE (Generalized Anxiety Disorder) [F41.1] 03/20/2010 Cervicalgia [M54.2] 05/22/2010 Other physical therapy [[id number]] 06/21/2010 01/06/2016 Other specified disorder of bladder [596.8] 07/25/201001/05 Recurrent UTI [N39.0] 07/03/2011 01/06/2016 Polypharmacy [Z79.899] 07/03/2011 Abnormality of urethral meatus [Q64.70] 07/16/2011 Generalized abdominal pain [R10.84] 07/16/2011 Urinary retention [R33.9] 07/16/2011 Hypothyroidism [E03.9] 01/07/2012 Urgency of urination [R39.15] 03/19/2012 Urge incontinence [N39.41] 03/19/2012 Trigger index finger of right hand [M65.321] 12/25/2012 DJD (degenerative joint disease) [M19.90] Marital conflict [Z63.0] 03/15/2014 Vitamin D deficiency [E55.9] 07/13/2014 Attention deficit hyperactivity disorder (ADHD)*02/10/2015 Bilateral low back pain with right-sided sciati*06/02/2015 Right hip pain [M25.551] 06/02/2015 Recurrent major depressive disorder, in partial*09/26/2015 Pain in right hip [M25.551] 10/25/2015 Trochanteric bursitis of both hips [M70.61, M70*10/25/2015 Chronic bilateral low back pain without sciatic*10/25/2015 Trigger little finger of left hand [M65.352] 01/23/2016 Trigger ring finger of left hand [M65.342] 01/23/2016 Trigger middle finger of left hand [M65.332] 01/23/2016 Bilateral hip pain [M25.551, M25.552] 09/20/2016 Greater trochanteric bursitis of both hips [M70*09/20/2016 Status post bariatric surgery [Z98.84] 10/11/2016 Dysuria [R30.0] 11/21/2017 Nonrheumatic aortic valve stenosis [I35.0] 12/19/2018 HTN, goal below 130/80 [I10] 12/19/2018 Lumbar back pain with radiculopathy affecting l*10/13/2019 Prescriptions ordered this encounter Disp Refills Start End BETAMETHASONE ACETATE AND SODIUM NORIS* 11/16/2019 Route: Inj-ORTHO LIDOCAINE (PF) 10 MG/ML (1 %) INJECT* 11/16/2019 Route: Inj-ORTHO Encounter Status:Closed by VIDAL DENNIS MD on 11/16/19 obsolete on 2019-10 OBSOLETE Refill (INTMWS) Normal 11-09-[address] [facility] SONNY DENNIS ([id number]) 1940 [facility] Time Provider Department ([id number]) 11/09/19 JAKE FISH (JANNY) INTMWS During your visit today, we recorded the following informati on about you: Radha Parnell RN 11/09/2019 9:44 AM Signed Patient has been identified by name and date of : Yes Patient phones for refill(s): Pending Prescriptions Disp Refills METFORMIN 850 MG TABLET 180 tablet 3 Sig: Take 1 tablet by mouth twice daily with meals. ID# [id number] ROSARIO: No METFORMIN 850 MG TABLET 60 tablet 1 Sig: Take 1 tablet by mouth twice daily with meals. ID# [id number] ROSARIO: No Date of last office visit in primary care: 07/06/19, future ap pt. 12/07/19 Last 2 Encounter Wt Readings: Date: Wt: 07/06/2019 53.5 kg (118 lb) 06/23/2019 55.3 kg (122 lb) Previous labs/tests for medication: Diabetes: Hemoglobin A1C (%) Date Value 05/07/2019 7.0 10/24/2018 6.6 Please advise. Thank you. Radha Parnell RN Allergies As of Date: 11/09/2019 Noted Allergy Reaction MACROBID (NITROFURANTOIN MONOHYD/*01/10/2009 8 - GI Upset ADHESIVE TAPE (ROSINS) 03/03/2013 14 - Other: See Comments Comments: redness ATIVAN (LORAZEPAM) 12/27/2015 1 - Mental Status Change BENZODIAZEPINES 12/22/2002 1 - Mental Status Change Comments: ativan--made her loopy while in hospital CIPROFLOXACIN 04/27/2008 9 - Itching Comments: Oral Yeast Infection Thrush DEMEROL (MEPERIDINE HCL) 05/04/2005 LATEX 12/22/2002 2 - Rash Comments: Pt notes is a sensitivity, not allergy SULFA (SULFONAMIDE ANTIBIOTICS) 12/22/2002 14 - Other: See C omments Comments: Patient was treated for UTI in October 2011 after told nurse that reaction was just yeast infection (not vomiting as was previously listed) XANTHINES 12/22/2002 Comments: darvon Date Reviewed: 09/07/2019 Reviewed by: Vidal Dennis - Fully Assessed Reason for Visit: Refill Request [94] Visit Diagnosis:Controlled type 2 diabetes mellitus without complication, without long-term current use of insulin (HCC) [E11.9] Order(s):metFORMIN (GLUCOPHAGE) 850 mg tabletTake 1 tablet b y mouth twice daily with meals. ID# [id number]: 180 tabletRfl: 3 metFORMIN (GLUCOPHAGE) 850 mg tabletTake 1 tablet by mouth t wice daily with meals. ID# [id number]: 60 tabletRfl: 1 Prescriptions as of 11/09/2019 Sig: METFORMIN 850 MG TABLET Take 1 tablet by mouth twice * METFORMIN 850 MG TABLET Take 1 tablet by mouth twice * METHYLPREDNISOLONE 4 MG TABLE* Follow dosing instructions, t * OXAPROZIN 600 MG TABLET Take 1 tablet by mouth once d* CYANOCOBALAMIN (VIT B-12) 1,0* 1 mL IM every 3 weeks HYDROCODONE 5 MG-ACETAMINOPHE* Take 1 tablet by mouth every * LEVOTHYROXINE 50 MCG TABLET Take 1 tablet by mouth daily * GABAPENTIN 300 MG CAPSULE Take 2 capsules by mouth twic* FUROSEMIDE 20 MG TABLET Take 1 tablet by mouth once d* LISINOPRIL 10 MG TABLET Take 1 tablet by mouth once d* NYSTATIN 100,000 UNIT/ML ORAL* One teaspoon swish in mouth f * FAMOTIDINE 20 MG TABLET Take 1 tablet by mouth twice * CYCLOBENZAPRINE 10 MG TABLET Take 1 tablet by mouth daily * ATORVASTATIN 20 MG TABLET Take 1 tablet by mouth once d* MIRTAZAPINE 15 MG TABLET Take 1 tablet by mouth daily * PAROXETINE 10 MG TABLET Take 1 tablet by mouth once d* PERFLUTREN LIPID MICROSPHERES* Inject 1.3 mL intravenously a * CALCIUM 600 ORAL Take by mouth. VITAMIN E 400 UNIT CAPSULE Take 400 Units by mouth once * CYANOCOBALAMIN (VIT B-12) 500* Take by mouth once daily. CRANBERRY EXTRACT 200 MG CAPS* Take 800 mg by mouth. BLOOD SUGAR DIAGNOSTIC STRIPS Test blood sugar(s) 1 times d* GLIMEPIRIDE 1 MG TABLET Take 1 tablet by mouth daily * VITS,CALCIUM 21-IRON* Take by mouth. Pt is taking 2 * BUPROPION XL 150 MG TAB Take 1 tablet by mouth once d* POTASSIUM CHLORIDE ER 10 MEQ * Take 1 capsule by mouth once * Patient not taking: Reported on 07/06/2019 BLOOD-GLUCOSE METER KIT Glucose Meter of Choice - Kit* LANCETS Test blood sugar(s) 1 times d* BLOOD-GLUCOSE METER KIT Glucose Meter of Choice, insu* BLOOD SUGAR DIAGNOSTIC STRIPS Test blood sugar(s) 1x daily.* BD LUER-MARLIN SYRINGE 3 ML 23 X* USE FOR B-12 INJECTIONS EVERY * MULTIVITAMIN CAPSULE Take 1 capsule by mouth once * CHOLECALCIFEROL (VITAMIN D3) * Take 2 tablets by mouth once * MELATONIN 10 MG TABLET Take 10 mg by mouth daily at * ACYCLOVIR 5 % TOPICAL OINTMENT Apply 6 times daily for 7 day * LANCETS Use as instructed Problem List As Of Date 11/09/2019 Noted Resolved ROTATOR CUFF SYND NOS [M71.9, M67.919] 12/22/2002 Lateral epicondylitis of elbow [M77.10] 12/22/2002 0 JOINT PAIN-UP/ARM [M25.529] 02/02/2003 TRIGGER FINGER [M65.30] 03/30/2003 More... Follow-up examination following surgery [V67.0] 07/18/2004 1 Other tenosynovitis of hand and wrist [M65.849,*05/01/2005 1 Hyperlipidemia [E78.5] More... Iron deficiency anemia [D50.9] More... PERNICIOUS ANEMIA [D51.0] More... More... More... Diabetes mellitus type 2, controlled, without c*05/07/2005 More... Pain in soft tissues of limb [M79.609] 05/15/2005 04/18/2010 INSOMNIA NOS [G47.00] 07/25/2005 More... OSTEOPENIA [M89.9, M94.9] 10/23/2005 More... PEPTIC ULCER NOS [K27.9] 10/23/2005 Unspecified ventral hernia without mention of o*10/23/2005 1 DIVERTICULOSIS OF COLON W/O BLEED [K57.30] 10/23/2005 IRRITABLE COLON [K58.9] 11/28/2005 Abdominal pain, right upper quadrant [R10.11] 04/05/2006 RECURRENT UTI's [N39.0] 03/22/2008 04/18/2010 Fibromyalgia [M79.7] 06/29/2008 More... Abdominal pain, other specified site [R10.9] 06/29/200803/31 HEMORRHOIDS NOS [K64.9] 06/29/2008 DISLOC DIST RADIOULN-CLOSE [S63.016A] 07/13/2008 Abdominal pain, generalized [R10.84] 10/29/2008 04/18/2010 PULMONARY NODULE [R22.2] 01/17/2009 More... ATROPHIC VAGINITIS [N95.2] 01/17/2009 FELIPE (Generalized Anxiety Disorder) [F41.1] 03/20/2010 Cervicalgia [M54.2] 05/22/2010 Other physical therapy [[id number]] 06/21/2010 01/06/2016 Other specified disorder of bladder [596.8] 07/25/201001/05 Recurrent UTI [N39.0] 07/03/2011 01/06/2016 Polypharmacy [Z79.899] 07/03/2011 Abnormality of urethral meatus [Q64.70] 07/16/2011 Generalized abdominal pain [R10.84] 07/16/2011 Urinary retention [R33.9] 07/16/2011 Hypothyroidism [E03.9] 01/07/2012 Urgency of urination [R39.15] 03/19/2012 Urge incontinence [N39.41] 03/19/2012 Trigger index finger of right hand [M65.321] 12/25/2012 DJD (degenerative joint disease) [M19.90] Marital conflict [Z63.0] 03/15/2014 Vitamin D deficiency [E55.9] 07/13/2014 Attention deficit hyperactivity disorder (ADHD)*02/10/2015 Bilateral low back pain with right-sided sciati*06/02/2015 Right hip pain [M25.551] 06/02/2015 Recurrent major depressive disorder, in partial*09/26/2015 Pain in right hip [M25.551] 10/25/2015 Trochanteric bursitis of both hips [M70.61, M70*10/25/2015 Chronic bilateral low back pain without sciatic*10/25/2015 Trigger little finger of left hand [M65.352] 01/23/2016 Trigger ring finger of left hand [M65.342] 01/23/2016 Trigger middle finger of left hand [M65.332] 01/23/2016 Bilateral hip pain [M25.551, M25.552] 09/20/2016 Greater trochanteric bursitis of both hips [M70*09/20/2016 Status post bariatric surgery [Z98.84] 10/11/2016 Dysuria [R30.0] 11/21/2017 Nonrheumatic aortic valve stenosis [I35.0] 12/19/2018 HTN, goal below 130/80 [I10] 12/19/2018 Lumbar back pain with radiculopathy affecting l*10/13/2019 Prescriptions ordered this encounter Disp Refills Start End METFORMIN 850 MG TABLET 180 * 3 11/09/2019 Class: [employer] [facility] Home Delivery Route: ORAL Sig: Take 1 tablet by mouth twice daily with meals. ID# [id number] METFORMIN 850 MG TABLET 60 t* 1 11/09/2019 Cmt: Short term supply until mail order arrives Route: ORAL Sig: Take 1 tablet by mouth twice daily with meals. ID# [id number] Medications Discontinued During This Encounter metFORMIN (GLUCOPHAGE) 850 mg tablet 180 * 3 09/04/2018 020 Route: ORAL Sig: Take 1 tablet by mouth twice daily with meals. ID# [id number] Disc: Reason for discontinue is not on file. Encounter Status:Closed by JAKE BLACKMON on 11/09/19 paulinon on [facility]11[facility] Normal 11-06-[address] [place] [facility] SONNY DENNIS ([id number]) 1940 [facility] Date Time Provider Department ([id number]) 11/06/19 MATI MONTENEGRO INTMWS During your visit today, we recorded the following informati on about you: Arley Glover RN 11/06/2019 2:08 PM Signed Pt called, verified by name and birthdate. Pt st ates she is having ongoing lt hip/thigh pain. Pt states pa in woke her up this morning in tears. Pt states she is not taking anything for pain control at this time. Please advise Arley Pond APRN.PAULINO 11/06/2019 4:05 PM Signed Can try medrol dose pack. I see patient is prescribed norco, she make use this as well for severe pain if she has any available. Otherwis e the medrol dose pack and ES Tylenol. The following approved medic ation requests have been transmitted electronically. Signed Prescriptions Disp Refills methylPREDNISolone (MEDROL, VIDYA,) 4 mg Dose-Pack 1 Package 0 Sig: Follow dosing instructions, take with food. Authorizing Provider: MAYRA POND ([facility]) Mayra Pond APRN.PAULINO Damon Ma 11/06/2019 4:14 PM Signed Patient notified. Arley Glover RN 11/06/2019 4:46 PM Signed Pt called, verified by name and birthdate. Reviewed below no te with pt. Pt upset that she has norco rx to take. Pt states s he does not have any. Advised pt to contact [facility] about this rx. Arley Glover RN Allergies As of Date: 11/06/2019 Noted Allergy Reaction MACROBID (NITROFURANTOIN MONOHYD/*01/10/2009 8 - GI Upset ADHESIVE TAPE (ROSINS) 03/03/2013 14 - Other: See Comments Comments: redness ATIVAN (LORAZEPAM) 12/27/2015 1 - Mental Status Change BENZODIAZEPINES 12/22/2002 1 - Mental Status Change Comments: ativan--made her loopy while in hospital CIPROFLOXACIN 04/27/2008 9 - Itching Comments: Oral Yeast Infection Thrush DEMEROL (MEPERIDINE HCL) 05/04/2005 LATEX 12/22/2002 2 - Rash Comments: Pt notes is a sensitivity, not allergy SULFA (SULFONAMIDE ANTIBIOTICS) 12/22/2002 14 - Other: See C omments Comments: Patient was treated for UTI in October 2011 after told nurse that reaction was just yeast infection (not vomiting as was previously listed) XANTHINES 12/22/2002 Comments: darvon Date Reviewed: 09/07/2019 Reviewed by: Vidal Dennis - Fully Assessed Reason for Visit: Pain [78] Order(s):methylPREDNISolone (MEDROL, VIDYA,) 4 mg Dose-PackFol low dosing instructions, take with food.Disp: 1 PackageRfl: 0 Prescriptions as of 11/06/2019 Sig: METHYLPREDNISOLONE 4 MG TABLE* Follow dosing instructions, t * OXAPROZIN 600 MG TABLET Take 1 tablet by mouth once d* CYANOCOBALAMIN (VIT B-12) 1,0* 1 mL IM every 3 weeks HYDROCODONE 5 MG-ACETAMINOPHE* Take 1 tablet by mouth every * LEVOTHYROXINE 50 MCG TABLET Take 1 tablet by mouth daily * GABAPENTIN 300 MG CAPSULE Take 2 capsules by mouth twic* FUROSEMIDE 20 MG TABLET Take 1 tablet by mouth once d* LISINOPRIL 10 MG TABLET Take 1 tablet by mouth once d* NYSTATIN 100,000 UNIT/ML ORAL* One teaspoon swish in mouth f * FAMOTIDINE 20 MG TABLET Take 1 tablet by mouth twice * CYCLOBENZAPRINE 10 MG TABLET Take 1 tablet by mouth daily * ATORVASTATIN 20 MG TABLET Take 1 tablet by mouth once d* MIRTAZAPINE 15 MG TABLET Take 1 tablet by mouth daily * PAROXETINE 10 MG TABLET Take 1 tablet by mouth once d* PERFLUTREN LIPID MICROSPHERES* Inject 1.3 mL intravenously a * CALCIUM 600 ORAL Take by mouth. VITAMIN E 400 UNIT CAPSULE Take 400 Units by mouth once * CYANOCOBALAMIN (VIT B-12) 500* Take by mouth once daily. CRANBERRY EXTRACT 200 MG CAPS* Take 800 mg by mouth. BLOOD SUGAR DIAGNOSTIC STRIPS Test blood sugar(s) 1 times d* GLIMEPIRIDE 1 MG TABLET Take 1 tablet by mouth daily * VITS,CALCIUM 21-IRON* Take by mouth. Pt is taking 2 * BUPROPION XL 150 MG TAB Take 1 tablet by mouth once d* METFORMIN 850 MG TABLET Take 1 tablet by mouth twice * POTASSIUM CHLORIDE ER 10 MEQ * Take 1 capsule by mouth once * Patient not taking: Reported on 07/06/2019 BLOOD-GLUCOSE METER KIT Glucose Meter of Choice - Kit* LANCETS Test blood sugar(s) 1 times d* BLOOD-GLUCOSE METER KIT Glucose Meter of Choice, insu* BLOOD SUGAR DIAGNOSTIC STRIPS Test blood sugar(s) 1x daily.* BD LUER-MARLIN SYRINGE 3 ML 23 X* USE FOR B-12 INJECTIONS EVERY * MULTIVITAMIN CAPSULE Take 1 capsule by mouth once * CHOLECALCIFEROL (VITAMIN D3) * Take 2 tablets by mouth once * MELATONIN 10 MG TABLET Take 10 mg by mouth daily at * ACYCLOVIR 5 % TOPICAL OINTMENT Apply 6 times daily for 7 day * LANCETS Use as instructed Problem List As Of Date 11/06/2019 Noted Resolved ROTATOR CUFF SYND NOS [M71.9, M67.919] 12/22/2002 Lateral epicondylitis of elbow [M77.10] 12/22/2002 0 JOINT PAIN-UP/ARM [M25.529] 02/02/2003 TRIGGER FINGER [M65.30] 03/30/2003 More... Follow-up examination following surgery [V67.0] 07/18/2004 1 Other tenosynovitis of hand and wrist [M65.849,*05/01/2005 1 Hyperlipidemia [E78.5] More... Iron deficiency anemia [D50.9] More... PERNICIOUS ANEMIA [D51.0] More... More... More... Diabetes mellitus type 2, controlled, without c*05/07/2005 More... Pain in soft tissues of limb [M79.609] 05/15/2005 04/18/2010 INSOMNIA NOS [G47.00] 07/25/2005 More... OSTEOPENIA [M89.9, M94.9] 10/23/2005 More... PEPTIC ULCER NOS [K27.9] 10/23/2005 Unspecified ventral hernia without mention of o*10/23/2005 1 DIVERTICULOSIS OF COLON W/O BLEED [K57.30] 10/23/2005 IRRITABLE COLON [K58.9] 11/28/2005 Abdominal pain, right upper quadrant [R10.11] 04/05/2006 RECURRENT UTI's [N39.0] 03/22/2008 04/18/2010 Fibromyalgia [M79.7] 06/29/2008 More... Abdominal pain, other specified site [R10.9] 06/29/200803/31 HEMORRHOIDS NOS [K64.9] 06/29/2008 DISLOC DIST RADIOULN-CLOSE [S63.016A] 07/13/2008 Abdominal pain, generalized [R10.84] 10/29/2008 04/18/2010 PULMONARY NODULE [R22.2] 01/17/2009 More... ATROPHIC VAGINITIS [N95.2] 01/17/2009 FELIPE (Generalized Anxiety Disorder) [F41.1] 03/20/2010 Cervicalgia [M54.2] 05/22/2010 Other physical therapy [[id number]] 06/21/2010 01/06/2016 Other specified disorder of bladder [596.8] 07/25/201001/05 Recurrent UTI [N39.0] 07/03/2011 01/06/2016 Polypharmacy [Z79.899] 07/03/2011 Abnormality of urethral meatus [Q64.70] 07/16/2011 Generalized abdominal pain [R10.84] 07/16/2011 Urinary retention [R33.9] 07/16/2011 Hypothyroidism [E03.9] 01/07/2012 Urgency of urination [R39.15] 03/19/2012 Urge incontinence [N39.41] 03/19/2012 Trigger index finger of right hand [M65.321] 12/25/2012 DJD (degenerative joint disease) [M19.90] Marital conflict [Z63.0] 03/15/2014 Vitamin D deficiency [E55.9] 07/13/2014 Attention deficit hyperactivity disorder (ADHD)*02/10/2015 Bilateral low back pain with right-sided sciati*06/02/2015 Right hip pain [M25.551] 06/02/2015 Recurrent major depressive disorder, in partial*09/26/2015 Pain in right hip [M25.551] 10/25/2015 Trochanteric bursitis of both hips [M70.61, M70*10/25/2015 Chronic bilateral low back pain without sciatic*10/25/2015 Trigger little finger of left hand [M65.352] 01/23/2016 Trigger ring finger of left hand [M65.342] 01/23/2016 Trigger middle finger of left hand [M65.332] 01/23/2016 Bilateral hip pain [M25.551, M25.552] 09/20/2016 Greater trochanteric bursitis of both hips [M70*09/20/2016 Status post bariatric surgery [Z98.84] 10/11/2016 Dysuria [R30.0] 11/21/2017 Nonrheumatic aortic valve stenosis [I35.0] 12/19/2018 HTN, goal below 130/80 [I10] 12/19/2018 Lumbar back pain with radiculopathy affecting l*10/13/2019 Prescriptions ordered this encounter Disp Refills Start End METHYLPREDNISOLONE 4 MG TABLETS IN A* 1 Pa* 0 11/06/2019 Sig: Follow dosing instructions, take with food. Encounter Status:Closed by CIERA DAMON MA on 11/06/19 cnpn on 2019-10-29 [facility] Normal 10-29-[address] [facility] SONNY DENNIS ([id number]) 1940 [facility] Date Time Provider Department ([id number]) 10/29/19 MATI MONTENEGRO INTMWS During your visit today, we recorded the following informati on about you: Agueda Goldstein RN 10/29/2019 2:01 PM Signed Patient requesting refill on B12 inj. Pended. Also reports E R prescribed prednisone 40 mg daily for 10 days on, 10-24-19, for bursitis in left leg. She is out of medication and ER advised her to call pcp for refill. Please advise patient. Jake Fish APRN.LAB ASST 10/29/2019 5:06 PM Signed Please get ER record to verify dosing of prednisone Ivis Montelongo LPN 10/30/2019 11:03 AM Signed Printed and in POD to review. The rx was prednisone 40 mg daily #10. Jake Fish APRN.LAB ASST 10/30/2019 11:39 AM Signed No mention of repeating prednisone, only to foll ow up with PCP in one week in ER record. did suspect hip bursitis. If still having pain, may resume daypro, refill sent to [facility]. Can offer appt with ortho doctor if she would fabrice rucker, may be able to treat with injection. Creatinine Date Value Ref Range Status 05/07/2019 1.19 (H) 0.58 - 0.96 mg/dL Final 12/15/2018 1.23 (H) 0.58 - 0.96 mg/dL Final 07/16/2018 0.93 0.58 - 0.96 mg/dL Final 07/10/2018 1.02 (H) 0.58 - 0.96 mg/dL Final If back pain present, recommend follow u p with [facility] doctor - history of spinal fusion, donovan rods on [facility] XR. Ivis Lon NITRATOR OPERATOR 10/31/2019 8:46 AM Signed Called pt and all reviewed. She would fabrice rucker an ortho consult. Please call pt to arrange consult. Zeina Dennis Pss 11/04/2019 1:41 PM Signed Patient scheduled for 11/[address] Dennis. Patient voiced u nderstanding. Allergies As of Date: 10/29/2019 Noted Allergy Reaction MACROBID (NITROFURANTOIN MONOHYD/*01/10/2009 8 - GI Upset ADHESIVE TAPE (ROSINS) 03/03/2013 14 - Other: See Comments Comments: redness ATIVAN (LORAZEPAM) 12/27/2015 1 - Mental Status Change BENZODIAZEPINES 12/22/2002 1 - Mental Status Change Comments: ativan--made her loopy while in hospital CIPROFLOXACIN 04/27/2008 9 - Itching Comments: Oral Yeast Infection Thrush DEMEROL (MEPERIDINE HCL) 05/04/2005 LATEX 12/22/2002 2 - Rash Comments: Pt notes is a sensitivity, not allergy SULFA (SULFONAMIDE ANTIBIOTICS) 12/22/2002 14 - Other: See C omments Comments: Patient was treated for UTI in October 2011 after told nurse that reaction was just yeast infection (not vomiting as was previously listed) XANTHINES 12/22/2002 Comments: darvon Date Reviewed: 09/07/2019 Reviewed by: Vidal Dennis - Fully Assessed Reason for Visit: Medication [Other] Primary Visit Diagnosis:Left hip pain [M25.552] Order(s):cyanocobalamin 1,000 mcg/mL1 mL IM every 3 we eksDisp: 18 VialRfl: 1 oxaprozin (DAYPRO) 600 mg tabletTake 1 tablet by mouth once daily for 15 days.Disp: 15 tabletRfl: 0 CONSULT TO ORTHOPAEDICS [9023] Order #: [id number]: 1 FUT URE Prescriptions as of 10/29/2019 Sig: OXAPROZIN 600 MG TABLET Take 1 tablet by mouth once d* CYANOCOBALAMIN (VIT B-12) 1,0* 1 mL IM every 3 weeks HYDROCODONE 5 MG-ACETAMINOPHE* Take 1 tablet by mouth every * LEVOTHYROXINE 50 MCG TABLET Take 1 tablet by mouth daily * GABAPENTIN 300 MG CAPSULE Take 2 capsules by mouth twic* FUROSEMIDE 20 MG TABLET Take 1 tablet by mouth once d* LISINOPRIL 10 MG TABLET Take 1 tablet by mouth once d* NYSTATIN 100,000 UNIT/ML ORAL* One teaspoon swish in mouth f * FAMOTIDINE 20 MG TABLET Take 1 tablet by mouth twice * CYCLOBENZAPRINE 10 MG TABLET Take 1 tablet by mouth daily * ATORVASTATIN 20 MG TABLET Take 1 tablet by mouth once d* MIRTAZAPINE 15 MG TABLET Take 1 tablet by mouth daily * PAROXETINE 10 MG TABLET Take 1 tablet by mouth once d* PERFLUTREN LIPID MICROSPHERES* Inject 1.3 mL intravenously a * CALCIUM 600 ORAL Take by mouth. VITAMIN E 400 UNIT CAPSULE Take 400 Units by mouth once * CYANOCOBALAMIN (VIT B-12) 500* Take by mouth once daily. CRANBERRY EXTRACT 200 MG CAPS* Take 800 mg by mouth. BLOOD SUGAR DIAGNOSTIC STRIPS Test blood sugar(s) 1 times d* GLIMEPIRIDE 1 MG TABLET Take 1 tablet by mouth daily * VITS,CALCIUM 21-IRON* Take by mouth. Pt is taking 2 * BUPROPION XL 150 MG TAB Take 1 tablet by mouth once d* METFORMIN 850 MG TABLET Take 1 tablet by mouth twice * POTASSIUM CHLORIDE ER 10 MEQ * Take 1 capsule by mouth once * Patient not taking: Reported on 07/06/2019 BLOOD-GLUCOSE METER KIT Glucose Meter of Choice - Kit* LANCETS Test blood sugar(s) 1 times d* BLOOD-GLUCOSE METER KIT Glucose Meter of Choice, insu* BLOOD SUGAR DIAGNOSTIC STRIPS Test blood sugar(s) 1x daily.* BD LUER-MARLIN SYRINGE 3 ML 23 X* USE FOR B-12 INJECTIONS EVERY * MULTIVITAMIN CAPSULE Take 1 capsule by mouth once * CHOLECALCIFEROL (VITAMIN D3) * Take 2 tablets by mouth once * MELATONIN 10 MG TABLET Take 10 mg by mouth daily at * ACYCLOVIR 5 % TOPICAL OINTMENT Apply 6 times daily for 7 day * LANCETS Use as instructed Problem List As Of Date 10/29/2019 Noted Resolved ROTATOR CUFF SYND NOS [M71.9, M67.919] 12/22/2002 Lateral epicondylitis of elbow [M77.10] 12/22/2002 0 JOINT PAIN-UP/ARM [M25.529] 02/02/2003 TRIGGER FINGER [M65.30] 03/30/2003 More... Follow-up examination following surgery [V67.0] 07/18/2004 1 Other tenosynovitis of hand and wrist [M65.849,*05/01/2005 1 Hyperlipidemia [E78.5] More... Iron deficiency anemia [D50.9] More... PERNICIOUS ANEMIA [D51.0] More... More... More... Diabetes mellitus type 2, controlled, without c*05/07/2005 More... Pain in soft tissues of limb [M79.609] 05/15/2005 04/18/2010 INSOMNIA NOS [G47.00] 07/25/2005 More... OSTEOPENIA [M89.9, M94.9] 10/23/2005 More... PEPTIC ULCER NOS [K27.9] 10/23/2005 Unspecified ventral hernia without mention of o*10/23/2005 1 DIVERTICULOSIS OF COLON W/O BLEED [K57.30] 10/23/2005 IRRITABLE COLON [K58.9] 11/28/2005 Abdominal pain, right upper quadrant [R10.11] 04/05/2006 RECURRENT UTI's [N39.0] 03/22/2008 04/18/2010 Fibromyalgia [M79.7] 06/29/2008 More... Abdominal pain, other specified site [R10.9] 06/29/200803/31 HEMORRHOIDS NOS [K64.9] 06/29/2008 DISLOC DIST RADIOULN-CLOSE [S63.016A] 07/13/2008 Abdominal pain, generalized [R10.84] 10/29/2008 04/18/2010 PULMONARY NODULE [R22.2] 01/17/2009 More... ATROPHIC VAGINITIS [N95.2] 01/17/2009 FELIPE (Generalized Anxiety Disorder) [F41.1] 03/20/2010 Cervicalgia [M54.2] 05/22/2010 Other physical therapy [[id number]] 06/21/2010 01/06/2016 Other specified disorder of bladder [596.8] 07/25/201001/05 Recurrent UTI [N39.0] 07/03/2011 01/06/2016 Polypharmacy [Z79.899] 07/03/2011 Abnormality of urethral meatus [Q64.70] 07/16/2011 Generalized abdominal pain [R10.84] 07/16/2011 Urinary retention [R33.9] 07/16/2011 Hypothyroidism [E03.9] 01/07/2012 Urgency of urination [R39.15] 03/19/2012 Urge incontinence [N39.41] 03/19/2012 Trigger index finger of right hand [M65.321] 12/25/2012 DJD (degenerative joint disease) [M19.90] Marital conflict [Z63.0] 03/15/2014 Vitamin D deficiency [E55.9] 07/13/2014 Attention deficit hyperactivity disorder (ADHD)*02/10/2015 Bilateral low back pain with right-sided sciati*06/02/2015 Right hip pain [M25.551] 06/02/2015 Recurrent major depressive disorder, in partial*09/26/2015 Pain in right hip [M25.551] 10/25/2015 Trochanteric bursitis of both hips [M70.61, M70*10/25/2015 Chronic bilateral low back pain without sciatic*10/25/2015 Trigger little finger of left hand [M65.352] 01/23/2016 Trigger ring finger of left hand [M65.342] 01/23/2016 Trigger middle finger of left hand [M65.332] 01/23/2016 Bilateral hip pain [M25.551, M25.552] 09/20/2016 Greater trochanteric bursitis of both hips [M70*09/20/2016 Status post bariatric surgery [Z98.84] 10/11/2016 Dysuria [R30.0] 11/21/2017 Nonrheumatic aortic valve stenosis [I35.0] 12/19/2018 HTN, goal below 130/80 [I10] 12/19/2018 Lumbar back pain with radiculopathy affecting l*10/13/2019 Prescriptions ordered this encounter Disp Refills Start End CYANOCOBALAMIN (VIT B-12) 1,000 MCG/* 18 V* 1 10/29/2019 Si mL IM every 3 weeks OXAPROZIN 600 MG TABLET 15 t* 0 10/30/2019 11/14/2019 Route: ORAL Sig: Take 1 tablet by mouth once daily for 15 days. Medications Discontinued During This Encounter cyanocobalamin 1,000 mcg/mL soln 18 V* 1 11/27/2018 10/29/2019 Si mL IM every 3 weeks Disc: Reason for discontinue is not on file. oxaprozin (DAYPRO) 600 mg tablet 14 t* 0 10/06/2019 10/30/2019 Route: ORAL Sig: Take 1 tablet by mouth once daily. Disc: Reason for discontinue is not on file. Encounter Status:Closed by ZEINA RODRIGUEZ on 11/04/19 cnpn on 2019-10-26 CNPN Telephone (PTWS) Normal 10-26-[address] [facility] SONNY DENNIS ([id number]) 1940 [facility] Time Provider Department ([id number]) 10/26/19 KRANTHI LARKIN (PT) PTWS During your visit today, we recorded the following informati on about you: Kranthi Larkin, PT 10/26/2019 10:33 AM Signed Pt called this morning to report that she had increased leg pain over the weekend and difficulty walking. She reports that she was r eferred to ED for evaluation and therefore she was seen at [facility] on Saturd ay 10/24/19. Pt reports being told that the source of her pain was an inflamed bu rsa and that she should rest and not participate in thera py. She has canceled future telehealth visits and stated that she w ould call if she had any future issues or PT needs. Kranthi Larkin PT Allergies As of Date: 10/26/2019 Noted Allergy Reaction MACROBID (NITROFURANTOIN MONOHYD/*01/10/2009 8 - GI Upset ADHESIVE TAPE (ROSINS) 03/03/2013 14 - Other: See Comments Comments: redness ATIVAN (LORAZEPAM) 12/27/2015 1 - Mental Status Change BENZODIAZEPINES 12/22/2002 1 - Mental Status Change Comments: ativan--made her loopy while in hospital CIPROFLOXACIN 04/27/2008 9 - Itching Comments: Oral Yeast Infection Thrush DEMEROL (MEPERIDINE HCL) 05/04/2005 LATEX 12/22/2002 2 - Rash Comments: Pt notes is a sensitivity, not allergy SULFA (SULFONAMIDE ANTIBIOTICS) 12/22/2002 14 - Other: See C omments Comments: Patient was treated for UTI in October 2011 after told nurse that reaction was just yeast infection (not vomiting as was previously listed) XANTHINES 12/22/2002 Comments: matti Date Reviewed: 09/07/2019 Reviewed by: Vidal Dennis - Fully Assessed Reason for Visit: ER F/U [41] Prescriptions as of 10/26/2019 Sig: HYDROCODONE 5 MG-ACETAMINOPHE* Take 1 tablet by mouth every * OXAPROZIN 600 MG TABLET Take 1 tablet by mouth once d* LEVOTHYROXINE 50 MCG TABLET Take 1 tablet by mouth daily * GABAPENTIN 300 MG CAPSULE Take 2 capsules by mouth twic* FUROSEMIDE 20 MG TABLET Take 1 tablet by mouth once d* LISINOPRIL 10 MG TABLET Take 1 tablet by mouth once d* NYSTATIN 100,000 UNIT/ML ORAL* One teaspoon swish in mouth f * FAMOTIDINE 20 MG TABLET Take 1 tablet by mouth twice * CYCLOBENZAPRINE 10 MG TABLET Take 1 tablet by mouth daily * ATORVASTATIN 20 MG TABLET Take 1 tablet by mouth once d* MIRTAZAPINE 15 MG TABLET Take 1 tablet by mouth daily * PAROXETINE 10 MG TABLET Take 1 tablet by mouth once d* PERFLUTREN LIPID MICROSPHERES* Inject 1.3 mL intravenously a * CALCIUM 600 ORAL Take by mouth. VITAMIN E 400 UNIT CAPSULE Take 400 Units by mouth once * CYANOCOBALAMIN (VIT B-12) 500* Take by mouth once daily. CRANBERRY EXTRACT 200 MG CAPS* Take 800 mg by mouth. BLOOD SUGAR DIAGNOSTIC STRIPS Test blood sugar(s) 1 times d* GLIMEPIRIDE 1 MG TABLET Take 1 tablet by mouth daily * VITS,CALCIUM 21-IRON* Take by mouth. Pt is taking 2 * CYANOCOBALAMIN (VIT B-12) 1,0* 1 mL IM every 3 weeks BUPROPION XL 150 MG TAB Take 1 tablet by mouth once d* METFORMIN 850 MG TABLET Take 1 tablet by mouth twice * POTASSIUM CHLORIDE ER 10 MEQ * Take 1 capsule by mouth once * Patient not taking: Reported on 07/06/2019 BLOOD-GLUCOSE METER KIT Glucose Meter of Choice - Kit* LANCETS Test blood sugar(s) 1 times d* BLOOD-GLUCOSE METER KIT Glucose Meter of Choice, insu* BLOOD SUGAR DIAGNOSTIC STRIPS Test blood sugar(s) 1x daily.* BD LUER-MARLIN SYRINGE 3 ML 23 X* USE FOR B-12 INJECTIONS EVERY * MULTIVITAMIN CAPSULE Take 1 capsule by mouth once * CHOLECALCIFEROL (VITAMIN D3) * Take 2 tablets by mouth once * MELATONIN 10 MG TABLET Take 10 mg by mouth daily at * ACYCLOVIR 5 % TOPICAL OINTMENT Apply 6 times daily for 7 day * LANCETS Use as instructed Problem List As Of Date 10/26/2019 Noted Resolved ROTATOR CUFF SYND NOS [M71.9, M67.919] 12/22/2002 Lateral epicondylitis of elbow [M77.10] 12/22/2002 0 JOINT PAIN-UP/ARM [M25.529] 02/02/2003 TRIGGER FINGER [M65.30] 03/30/2003 More... Follow-up examination following surgery [V67.0] 07/18/2004 1 Other tenosynovitis of hand and wrist [M65.849,*05/01/2005 1 Hyperlipidemia [E78.5] More... Iron deficiency anemia [D50.9] More... PERNICIOUS ANEMIA [D51.0] More... More... More... Diabetes mellitus type 2, controlled, without c*05/07/2005 More... Pain in soft tissues of limb [M79.609] 05/15/2005 04/18/2010 INSOMNIA NOS [G47.00] 07/25/2005 More... OSTEOPENIA [M89.9, M94.9] 10/23/2005 More... PEPTIC ULCER NOS [K27.9] 10/23/2005 Unspecified ventral hernia without mention of o*10/23/2005 1 DIVERTICULOSIS OF COLON W/O BLEED [K57.30] 10/23/2005 IRRITABLE COLON [K58.9] 11/28/2005 Abdominal pain, right upper quadrant [R10.11] 04/05/2006 RECURRENT UTI's [N39.0] 03/22/2008 04/18/2010 Fibromyalgia [M79.7] 06/29/2008 More... Abdominal pain, other specified site [R10.9] 06/29/200803/31 HEMORRHOIDS NOS [K64.9] 06/29/2008 DISLOC DIST RADIOULN-CLOSE [S63.016A] 07/13/2008 Abdominal pain, generalized [R10.84] 10/29/2008 04/18/2010 PULMONARY NODULE [R22.2] 01/17/2009 More... ATROPHIC VAGINITIS [N95.2] 01/17/2009 FELIPE (Generalized Anxiety Disorder) [F41.1] 03/20/2010 Cervicalgia [M54.2] 05/22/2010 Other physical therapy [[id number]] 06/21/2010 01/06/2016 Other specified disorder of bladder [596.8] 07/25/201001/05 Recurrent UTI [N39.0] 07/03/2011 01/06/2016 Polypharmacy [Z79.899] 07/03/2011 Abnormality of urethral meatus [Q64.70] 07/16/2011 Generalized abdominal pain [R10.84] 07/16/2011 Urinary retention [R33.9] 07/16/2011 Hypothyroidism [E03.9] 01/07/2012 Urgency of urination [R39.15] 03/19/2012 Urge incontinence [N39.41] 03/19/2012 Trigger index finger of right hand [M65.321] 12/25/2012 DJD (degenerative joint disease) [M19.90] Marital conflict [Z63.0] 03/15/2014 Vitamin D deficiency [E55.9] 07/13/2014 Attention deficit hyperactivity disorder (ADHD)*02/10/2015 Bilateral low back pain with right-sided sciati*06/02/2015 Right hip pain [M25.551] 06/02/2015 Recurrent major depressive disorder, in partial*09/26/2015 Pain in right hip [M25.551] 10/25/2015 Trochanteric bursitis of both hips [M70.61, M70*10/25/2015 Chronic bilateral low back pain without sciatic*10/25/2015 Trigger little finger of left hand [M65.352] 01/23/2016 Trigger ring finger of left hand [M65.342] 01/23/2016 Trigger middle finger of left hand [M65.332] 01/23/2016 Bilateral hip pain [M25.551, M25.552] 09/20/2016 Greater trochanteric bursitis of both hips [M70*09/20/2016 Status post bariatric surgery [Z98.84] 10/11/2016 Dysuria [R30.0] 11/21/2017 Nonrheumatic aortic valve stenosis [I35.0] 12/19/2018 HTN, goal below 130/80 [I10] 12/19/2018 Lumbar back pain with radiculopathy affecting l*10/13/2019 Encounter Status:Closed by KRANHTI LARKIN PT on 10/26/19 progress on 2019-09 PROGRESS HNO ID: [id number] Normal 10-20-2019 [facility] Author: Kranthi (Davion) Chaya Santiago ([id number]) Service: ? Author Type: Physical Therapist Type: Progress Notes Filed: 10/20/2019 11:15 AM Note Text: [facility] PHYSICAL THERAPY TELEVISIT NOTE Patient initiated and consented to Televisit to consult chiquis jauregui their Physical Therapy reason for Televisit is [facility]. Persons Present: patient Chief Complaint/Reason: L lumbar radiculopathy. SUBJECTIVE: Pt reports that overall she is feeling much bett er today than she was yesterday. Yesterday she called to report a sig nificant increase in pain that made it very difficult for her to walk . Therapist clarified her HEP instructions yesterday. Since that time he r pain has been a lot better. She attributes the improvements to the HEP issued at evaluation that was clarified yesterday. Reported Functional Gains: Improved tolerance for standing, sitting and walking Improved quality of movement Increased independence with HEP Decreased intensity of pain Pain: Yes: Low back / Lumbar Spine left; Intensity: 4/10 at most. Pain is described as aching. Duration of pain is constant and dull. Duration of pain is constant. Hip left; Intensity: 4/10 at most. Pain is described as achi ng. Duration of pain is constant and dull. Duration of pain is constant. Thigh left; Intensity: 4/10 at most. Pain is described as ac kimmy. Duration of pain is constant and dull. Duration of pain is constant. Pt reports that pain is constant but varies in intensity. HOME PROGRAM REVIEW AND RECOMMENDATIONS: L SKTC and DKTC iss ued at evaluation were reviewed and corrected again with continuati on encouraged to tolerance. This has been effective with pain management andrea baker yesterday. Two new core strengthening exercises added to HEP today: supine isometric abdominal exercise via shoulder extension w ith 2 second hold 2x10 and supine mini-crunches 2x10 in pain-free range. Handout created and texted to patient at her request. She does not k now how to use [employer] and does not have a functioning email account. I f text method does not work, a handout will be mailed to her. PLAN: Plan: Follow up phone call in 1 weeks for re-check and HEP modification prn. She will call sooner prn. Total Time Spent: 11-20 minutes Kranthi Larkin PT cntherapy on 10-19 CNTHERAPY OT/PT/Speech Visit (PTWS) Normal - [facility] SONNY DENNIS ([id number]) 1940 [facility] Date Time Provider Department [facility] 10/20/19 10:45 AM KRANTHI LARKIN (PT) PTWS ([id number]) Date Time Provider Department [facility] 10/20/2019 10:45 AM [id number], BRENT (PT) PTWS [facility] R Reason for Visit: Rehab Televisit [8152] Physical Therapy [503] Primary Visit Diagnosis:Lumbar back pain with radiculopathy affecting left lower extremity [M54.16] Allergies As of Date: 10/20/2019 Noted Allergy Reaction MACROBID (NITROFURANTOIN MONOHYD/*01/10/2009 8 - GI Upset ADHESIVE TAPE (ROSINS) 03/03/2013 14 - Other: See Comments Comments: redness ATIVAN (LORAZEPAM) 12/27/2015 1 - Mental Status Change BENZODIAZEPINES 12/22/2002 1 - Mental Status Change Comments: ativan--made her loopy while in hospital CIPROFLOXACIN 04/27/2008 9 - Itching Comments: Oral Yeast Infection Thrush DEMEROL (MEPERIDINE HCL) 05/04/2005 LATEX 12/22/2002 2 - Rash Comments: Pt notes is a sensitivity, not allergy SULFA (SULFONAMIDE ANTIBIOTICS) 12/22/2002 14 - Other: See Palmira huynh Comments: Patient was treated for UTI in October 2011 after told nurse that reaction was just yeast infection (not vomiting as was previously listed) XANTHINES 12/22/2002 Comments: matti Date Reviewed: 09/07/2019 Reviewed by: Vidal Dennis - Fully Assessed Prescriptions as of 10/20/2019 Sig: OXAPROZIN 600 MG TABLET Take 1 tablet by mouth once d* HYDROCODONE 5 MG-ACETAMINOPHE* Take 1 tablet by mouth every * LEVOTHYROXINE 50 MCG TABLET Take 1 tablet by mouth daily * GABAPENTIN 300 MG CAPSULE Take 2 capsules by mouth twic* FUROSEMIDE 20 MG TABLET Take 1 tablet by mouth once d* LISINOPRIL 10 MG TABLET Take 1 tablet by mouth once d* NYSTATIN 100,000 UNIT/ML ORAL* One teaspoon swish in mouth f * FAMOTIDINE 20 MG TABLET Take 1 tablet by mouth twice * CYCLOBENZAPRINE 10 MG TABLET Take 1 tablet by mouth daily * ATORVASTATIN 20 MG TABLET Take 1 tablet by mouth once d* MIRTAZAPINE 15 MG TABLET Take 1 tablet by mouth daily * PAROXETINE 10 MG TABLET Take 1 tablet by mouth once d* PERFLUTREN LIPID MICROSPHERES* Inject 1.3 mL intravenously a * CALCIUM 600 ORAL Take by mouth. VITAMIN E 400 UNIT CAPSULE Take 400 Units by mouth once * CYANOCOBALAMIN (VIT B-12) 500* Take by mouth once daily. CRANBERRY EXTRACT 200 MG CAPS* Take 800 mg by mouth. BLOOD SUGAR DIAGNOSTIC STRIPS Test blood sugar(s) 1 times d* GLIMEPIRIDE 1 MG TABLET Take 1 tablet by mouth daily * VITS,CALCIUM 21-IRON* Take by mouth. Pt is taking 2 * CYANOCOBALAMIN (VIT B-12) 1,0* 1 mL IM every 3 weeks BUPROPION XL 150 MG TAB Take 1 tablet by mouth once d* METFORMIN 850 MG TABLET Take 1 tablet by mouth twice * POTASSIUM CHLORIDE ER 10 MEQ * Take 1 capsule by mouth once * Patient not taking: Reported on 07/06/2019 BLOOD-GLUCOSE METER KIT Glucose Meter of Choice - Kit* LANCETS Test blood sugar(s) 1 times d* BLOOD-GLUCOSE METER KIT Glucose Meter of Choice, insu* BLOOD SUGAR DIAGNOSTIC STRIPS Test blood sugar(s) 1x daily.* BD LUER-MARLIN SYRINGE 3 ML 23 X* USE FOR B-12 INJECTIONS EVERY * MULTIVITAMIN CAPSULE Take 1 capsule by mouth once * CHOLECALCIFEROL (VITAMIN D3) * Take 2 tablets by mouth once * MELATONIN 10 MG TABLET Take 10 mg by mouth daily at * ACYCLOVIR 5 % TOPICAL OINTMENT Apply 6 times daily for 7 day * LANCETS Use as instructed Progress Notes: Kranthi Larkin, PT 10/20/2019 11:15 AM Signed [facility] PHYSICAL THERAPY TELEVISIT NOTE Patient initiated and consen rod to Televisit to consult regarding their Physical Therapy reason for Televisit is based on COVID-19 guidelines . Persons Present: patient Chief Complaint/Reason: L lumbar radiculopathy. SUBJECTIVE: Pt reports that overall she is feeli ng much better today than she was yesterday. Yesterday she called to report a signif icant increase in pain that made it very difficult for her to walk. Therapist loretta fied her HEP instructions yesterday. Since that time her pain has been a lot better. She attributes the improvements to the HEP i ssued at evaluation that was clarified yesterday. Reported Functional Gains: I mproved tolerance for standing, sitting and walking Improved quality of movement Increased independence with HEP Decreased intensity of pain Pain: Yes: Low back / Lumbar Spine left; Intensity: 4/10 at most. Pain is described as aching. Duratio n of pain is constant and dull. Duration of pain is constant. Hip left; Intensity: 4/10 at most. Pain is described as aching. Duration of pain is constant and dull. Duration of pain is constant. Thigh left; Intensity: 4/10 at most. Pain is consuelo cribed as aching. Duration of pain is constant and dull. Duration of pain is constant. Pt reports that pain is constant but varies in intensity. HOME PROGRAM REVIEW AND RECOMMENDATIONS: L SKTC and DKTC issued at evaluation were reviewed and corrected again with continuation en couraged to tolerance. This has been effective with pain management since yesterday . Two new core strengthening exercises adde d to HEP today: supine isometric abdominal exercise via shoulder extension with 2 second hold 2x10 and supine mini-crunches 2x10 in pain-free range. Handout created and texted to patient at he r request. She does not know how to use [employer] and does not have a functioning email account. If text method does not work, a handout will be mailed to he r. PLAN: Plan: Follow up phone call in 1 weeks for re-check and HEP modification prn. She will call sooner prn. Total Time Spent: 11-20 minutes Kranthi Larkin PT cnpn on 2019-10-20 CNPN Telephone (INTMWS) Normal 10-20-[address] [place] [facility] SONNY DENNIS ([id number]) 1940 [facility] Date Time Provider Department ([id number]) 10/20/19 MATI MONTENEGRO INTMERA During your visit today, we recorded the following informati on about you: Radha Owens LPN 10/20/2019 4:54 PM Signed Patient calling to see what she needs to do to g et a refill on her [place]. She does not have a smart phone. Can she do another phone apt or does it have to be a virtual apt. She was thinking maybe she could go thru her special effects technician maybe. Please advise. She has only 2 days of [place] left. PH: . Radha Montelongo LPN 10/21/2019 9:59 AM Signed Not really sure what else to do. pcp has said what is needed for refills. nursing has nothing else to add. Mati Montenegro MD 10/22/2019 8:55 AM Signed The prescription was written for her to take 1 p ill 4 times daily for 14 days and filled 10/11 so should last till 10/25. Her PT distance health note indicated pain was starting to i mprove. Can give a refill since have not changed medication from wha t she was on before--just gave more in setting of inc reased pain. But need to make sure not taking more than prescribed without discussing to avoid unintentional overdose. See how many pills she has left and how she has been taking it. Plan on at least a telephone visit in [facility] if not able to bring her in for Face to Face visit in October (depends on COVID [address] [facility]) Ivis Montelongo RACHEL 10/22/2019 10:03 AM Signed Called pt and she reports she had been t aking them every 6 hours but trying to strength this out. When asked how she been taki ng them the last couple days she says again every 6 hours. She says she has 28 pills left. Mati Montenegro MD 10/22/2019 4:48 PM Signed Will send RX so may get on or after 10/25 --since has 28 pill, that will last at least until that day. When she called 10/19, Radha put in th e note that patient said she only had a couple days worth of pills left (that would've been 8 pills). So it does look like she was a ble to stretch out the pills since has more pills left than if was taking one 4 times daily routine ly. Hoping that as pain continues to improve, then will ab le to cut back on RXs. The following approved medic ation requests have been transmitted electronically. Signed Prescriptions Disp Refills HYDROcodone-acetaminophen (NORCO) 5-325 mg per tablet 56 tab let 0 Sig: Take 1 tablet by mouth every 6 hours as needed for Pain for up to 14 days. Do not start before October 26, 2019. JOSE Class: C-II ROSARIO: No Authorizing Provider: MATI MONTENEGRO MD Allergies As of Date: 10/20/2019 Noted Allergy Reaction MACROBID (NITROFURANTOIN MONOHYD/*01/10/2009 8 - GI Upset ADHESIVE TAPE (ROSINS) 03/03/2013 14 - Other: See Comments Comments: redness ATIVAN (LORAZEPAM) 12/27/2015 1 - Mental Status Change BENZODIAZEPINES 12/22/2002 1 - Mental Status Change Comments: ativan--made her loopy while in hospital CIPROFLOXACIN 04/27/2008 9 - Itching Comments: Oral Yeast Infection Thrush DEMEROL (MEPERIDINE HCL) 05/04/2005 LATEX 12/22/2002 2 - Rash Comments: Pt notes is a sensitivity, not allergy SULFA (SULFONAMIDE ANTIBIOTICS) 12/22/2002 14 - Other: See C omments Comments: Patient was treated for UTI in October 2011 after told nurse that reaction was just yeast infection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 Take 1 tablet by mouth daily * PAROXETINE 10 MG TABLET Take 1 tablet by mouth once d* PERFLUTREN LIPID MICROSPHERES* Inject 1.3 mL intravenously a * CALCIUM 600 ORAL Take by mouth. VITAMIN E 400 UNIT CAPSULE Take 400 Units by mouth once * CYANOCOBALAMIN (VIT B-12) 500* Take by mouth once daily. CRANBERRY EXTRACT 200 MG CAPS* Take 800 mg by mouth. BLOOD SUGAR DIAGNOSTIC STRIPS Test blood sugar(s) 1 times d* GLIMEPIRIDE 1 MG TABLET Take 1 tablet by mouth daily * VITS,CALCIUM 21-IRON* Take by mouth. Pt is taking 2 * CYANOCOBALAMIN (VIT B-12) 1,0* 1 mL IM every 3 weeks BUPROPION XL 150 MG TAB Take 1 tablet by mouth once d* METFORMIN 850 MG TABLET Take 1 tablet by mouth twice * POTASSIUM CHLORIDE ER 10 MEQ * Take 1 capsule by mouth once * Patient not taking: Reported on 07/06/2019 BLOOD-GLUCOSE METER KIT Glucose Meter of Choice - Kit* LANCETS Test blood sugar(s) 1 times d* BLOOD-GLUCOSE METER KIT Glucose Meter of Choice, insu* BLOOD SUGAR DIAGNOSTIC STRIPS Test blood sugar(s) 1x daily.* BD LUER-MARLIN SYRINGE 3 ML 23 X* USE FOR B-12 INJECTIONS EVERY * MULTIVITAMIN CAPSULE Take 1 capsule by mouth once * CHOLECALCIFEROL (VITAMIN D3) * Take 2 tablets by mouth once * MELATONIN 10 MG TABLET Take 10 mg by mouth daily at * ACYCLOVIR 5 % TOPICAL OINTMENT Apply 6 times daily for 7 day * LANCETS Use as instructed Problem List As Of Date 09/28/2019 Noted Resolved ROTATOR CUFF SYND NOS [M71.9, M67.919] 12/22/2002 Lateral epicondylitis of elbow [M77.10] 12/22/2002 0 JOINT PAIN-UP/ARM [M25.529] 02/02/2003 TRIGGER FINGER [M65.30] 03/30/2003 More... Follow-up examination following surgery [V67.0] 07/18/2004 1 Other tenosynovitis of hand and wrist [M65.849,*05/01/2005 1 Hyperlipidemia [E78.5] More... Iron deficiency anemia [D50.9] More... PERNICIOUS ANEMIA [D51.0] More... More... More... Diabetes mellitus type 2, controlled, without c*05/07/2005 More... Pain in soft tissues of limb [M79.609] 05/15/2005 04/18/2010 INSOMNIA NOS [G47.00] 07/25/2005 More... OSTEOPENIA [M89.9, M94.9] 10/23/2005 More... PEPTIC ULCER NOS [K27.9] 10/23/2005 Unspecified ventral hernia without mention of o*10/23/2005 1 DIVERTICULOSIS OF COLON W/O BLEED [K57.30] 10/23/2005 IRRITABLE COLON [K58.9] 11/28/2005 Abdominal pain, right upper quadrant [R10.11] 04/05/2006 RECURRENT UTI's [N39.0] 03/22/2008 04/18/2010 Fibromyalgia [M79.7] 06/29/2008 More... Abdominal pain, other specified site [R10.9] 06/29/200803/31 HEMORRHOIDS NOS [K64.9] 06/29/2008 DISLOC DIST RADIOULN-CLOSE [S63.016A] 07/13/2008 Abdominal pain, generalized [R10.84] 10/29/2008 04/18/2010 PULMONARY NODULE [R22.2] 01/17/2009 More... ATROPHIC VAGINITIS [N95.2] 01/17/2009 FELIPE (Generalized Anxiety Disorder) [F41.1] 03/20/2010 Cervicalgia [M54.2] 05/22/2010 Other physical therapy [[id number]] 06/21/2010 01/06/2016 Other specified disorder of bladder [596.8] 07/25/201001/05 Recurrent UTI [N39.0] 07/03/2011 01/06/2016 Polypharmacy [Z79.899] 07/03/2011 Abnormality of urethral meatus [Q64.70] 07/16/2011 Generalized abdominal pain [R10.84] 07/16/2011 Urinary retention [R33.9] 07/16/2011 Hypothyroidism [E03.9] 01/07/2012 Urgency of urination [R39.15] 03/19/2012 Urge incontinence [N39.41] 03/19/2012 Trigger index finger of right hand [M65.321] 12/25/2012 DJD (degenerative joint disease) [M19.90] Marital conflict [Z63.0] 03/15/2014 Vitamin D deficiency [E55.9] 07/13/2014 Attention deficit hyperactivity disorder (ADHD)*02/10/2015 Bilateral low back pain with right-sided sciati*06/02/2015 Right hip pain [M25.551] 06/02/2015 Recurrent major depressive disorder, in partial*09/26/2015 Pain in right hip [M25.551] 10/25/2015 Trochanteric bursitis of both hips [M70.61, M70*10/25/2015 Chronic bilateral low back pain without sciatic*10/25/2015 Trigger little finger of left hand [M65.352] 01/23/2016 Trigger ring finger of left hand [M65.342] 01/23/2016 Trigger middle finger of left hand [M65.332] 01/23/2016 Bilateral hip pain [M25.551, M25.552] 09/20/2016 Greater trochanteric bursitis of both hips [M70*09/20/2016 Status post bariatric surgery [Z98.84] 10/11/2016 Dysuria [R30.0] 11/21/2017 Nonrheumatic aortic valve stenosis [I35.0] 12/19/2018 HTN, goal below 130/80 [I10] 12/19/2018 Encounter Status:Closed by CHELSEA FARRIS LPN on 09/29/19 obsolete on 2019-08 OBSOLETE Refill (INTMWS) Normal 09-23-[address] [facility] SONNY DENNIS ([id number]) 1940 [facility] Time Provider Department ([id number]) 09/23/19 MATI MONTENEGRO INTMWS During your visit today, we recorded the following informati on about you: Mauro Romeo [facility] 09/23/2019 11:46 AM Signed Patient stated she was taking 2, 25 mcg Levothyr oxines, but the list shows 1, 50 mcg in the am before breakfast. Please review and then submit to mail order please, Thanks, Mauro Owens LPN 09/23/2019 12:11 PM Signed Patient also having severe left leg pain, no red ness but it is warm to touch. She had surgery in December. Dr. Radha Owens LPN 09/23/2019 1:[address] Dennis gave her an injection 2 weeks ago and patient doi [facility]. Was not able to go to PT. Patient has some [place] left over and she is wondering if she can take this. Reports again in severe pain to the point it makes her cry. Please advise patient. Mati Montenegro MD 09/23/2019 2:17 PM Signed [facility] Prescriptions shows filled levothyroxine 50 mcg pil ls in 08/04/19 oer medication dispense history. Looks fabrice rucker was sent for 30 instead of 90 pills in August by [facility] have her check her bottle to see if says 25 or 50 since might have been taking two 50's by mistake or she still has been taking prior bottl e of 25s Looks should have been getti ng 50mcg pills since last May but that as sent to [facility] of [facility] then August was sent again for only 30 pills so she might have been getting 25 mg pills instead. For now, local RX till straighten this out The following approved medic ation requests have been transmitted electronically. Signed Prescriptions Disp Refills levothyroxine (SYNTHROID) 50 mcg tablet 30 tablet 2 Sig: Take 1 tablet by mouth daily before breakfast. ID# [id number] ROSARIO: No Authorizing Provider: MATI MONTENEGRO MD Last RX for hydrocodone was from 08/19/19 Okay to take what she has left for pain that is severe Virtual visit if need to address pain meds before November appoi kellie Ballard 09/23/2019 4:56 PM Signed Patient returned call and message from provider given with v oiced understanding. She says she has been taking the 25 mcg pills . Allergies As of Date: 09/23/2019 Noted Allergy Reaction MACROBID (NITROFURANTOIN MONOHYD/*01/10/2009 8 - GI Upset ADHESIVE TAPE (ROSINS) 03/03/2013 14 - Other: See Comments Comments: redness ATIVAN (LORAZEPAM) 12/27/2015 1 - Mental Status Change BENZODIAZEPINES 12/22/2002 1 - Mental Status Change Comments: ativan--made her loopy while in hospital CIPROFLOXACIN 04/27/2008 9 - Itching Comments: Oral Yeast Infection Thrush DEMEROL (MEPERIDINE HCL) 05/04/2005 LATEX 12/22/2002 2 - Rash Comments: Pt notes is a sensitivity, not allergy SULFA (SULFONAMIDE ANTIBIOTICS) 12/22/2002 14 - Other: See C omments Comments: Patient was treated for UTI in October 2011 after told nurse that reaction was just yeast infection (not vomiting as was previously listed) XANTHINES 12/22/2002 Comments: matti Date Reviewed: 09/07/2019 Reviewed by: Vidal Dennis - Fully Assessed Reason for Visit: Refill Request [94] Order(s):levothyroxine (SYNTHROID) 50 mcg tabletTake 1 tablet by mouth daily before breakfast. ID# [id number]: 30 tabletRfl: 2 Prescriptions as of 09/23/2019 Sig: LEVOTHYROXINE 50 MCG TABLET Take 1 tablet by mouth daily * GABAPENTIN 300 MG CAPSULE Take 2 capsules by mouth twic* FUROSEMIDE 20 MG TABLET Take 1 tablet by mouth once d* HYDROCODONE 5 MG-ACETAMINOPHE* Take 0.5-1 tablets by mouth o * LISINOPRIL 10 MG TABLET Take 1 tablet by mouth once d* NYSTATIN 100,000 UNIT/ML ORAL* One teaspoon swish in mouth f * FAMOTIDINE 20 MG TABLET Take 1 tablet by mouth twice * CYCLOBENZAPRINE 10 MG TABLET Take 1 tablet by mouth daily * ATORVASTATIN 20 MG TABLET Take 1 tablet by mouth once d* MIRTAZAPINE 15 MG TABLET Take 1 tablet by mouth daily * PAROXETINE 10 MG TABLET Take 1 tablet by mouth once d* PERFLUTREN LIPID MICROSPHERES* Inject 1.3 mL intravenously a * CALCIUM 600 ORAL Take by mouth. VITAMIN E 400 UNIT CAPSULE Take 400 Units by mouth once * CYANOCOBALAMIN (VIT B-12) 500* Take by mouth once daily. CRANBERRY EXTRACT 200 MG CAPS* Take 800 mg by mouth. BLOOD SUGAR DIAGNOSTIC STRIPS Test blood sugar(s) 1 times d* GLIMEPIRIDE 1 MG TABLET Take 1 tablet by mouth daily * VITS,CALCIUM 21-IRON* Take by mouth. Pt is taking 2 * CYANOCOBALAMIN (VIT B-12) 1,0* 1 mL IM every 3 weeks BUPROPION XL 150 MG TAB Take 1 tablet by mouth once d* METFORMIN 850 MG TABLET Take 1 tablet by mouth twice * POTASSIUM CHLORIDE ER 10 MEQ * Take 1 capsule by mouth once * Patient not taking: Reported on 07/06/2019 BLOOD-GLUCOSE METER KIT Glucose Meter of Choice - Kit* LANCETS Test blood sugar(s) 1 times d* BLOOD-GLUCOSE METER KIT Glucose Meter of Choice, insu* BLOOD SUGAR DIAGNOSTIC STRIPS Test blood sugar(s) 1x daily.* BD LUER-MARLIN SYRINGE 3 ML 23 X* USE FOR B-12 INJECTIONS EVERY * MULTIVITAMIN CAPSULE Take 1 capsule by mouth once * CHOLECALCIFEROL (VITAMIN D3) * Take 2 tablets by mouth once * MELATONIN 10 MG TABLET Take 10 mg by mouth daily at * ACYCLOVIR 5 % TOPICAL OINTMENT Apply 6 times daily for 7 day * LANCETS Use as instructed Problem List As Of Date 09/23/2019 Noted Resolved ROTATOR CUFF SYND NOS [M71.9, M67.919] 12/22/2002 Lateral epicondylitis of elbow [M77.10] 12/22/2002 0 JOINT PAIN-UP/ARM [M25.529] 02/02/2003 TRIGGER FINGER [M65.30] 03/30/2003 More... Follow-up examination following surgery [V67.0] 07/18/2004 1 Other tenosynovitis of hand and wrist [M65.849,*05/01/2005 1 Hyperlipidemia [E78.5] More... Iron deficiency anemia [D50.9] More... PERNICIOUS ANEMIA [D51.0] More... More... More... Diabetes mellitus type 2, controlled, without c*05/07/2005 More... Pain in soft tissues of limb [M79.609] 05/15/2005 04/18/2010 INSOMNIA NOS [G47.00] 07/25/2005 More... OSTEOPENIA [M89.9, M94.9] 10/23/2005 More... PEPTIC ULCER NOS [K27.9] 10/23/2005 Unspecified ventral hernia without mention of o*10/23/2005 1 DIVERTICULOSIS OF COLON W/O BLEED [K57.30] 10/23/2005 IRRITABLE COLON [K58.9] 11/28/2005 Abdominal pain, right upper quadrant [R10.11] 04/05/2006 RECURRENT UTI's [N39.0] 03/22/2008 04/18/2010 Fibromyalgia [M79.7] 06/29/2008 More... Abdominal pain, other specified site [R10.9] 06/29/200803/31 HEMORRHOIDS NOS [K64.9] 06/29/2008 DISLOC DIST RADIOULN-CLOSE [S63.016A] 07/13/2008 Abdominal pain, generalized [R10.84] 10/29/2008 04/18/2010 PULMONARY NODULE [R22.2] 01/17/2009 More... ATROPHIC VAGINITIS [N95.2] 01/17/2009 FELIPE (Generalized Anxiety Disorder) [F41.1] 03/20/2010 Cervicalgia [M54.2] 05/22/2010 Other physical therapy [[id number]] 06/21/2010 01/06/2016 Other specified disorder of bladder [596.8] 07/25/201001/05 Recurrent UTI [N39.0] 07/03/2011 01/06/2016 Polypharmacy [Z79.899] 07/03/2011 Abnormality of urethral meatus [Q64.70] 07/16/2011 Generalized abdominal pain [R10.84] 07/16/2011 Urinary retention [R33.9] 07/16/2011 Hypothyroidism [E03.9] 01/07/2012 Urgency of urination [R39.15] 03/19/2012 Urge incontinence [N39.41] 03/19/2012 Trigger index finger of right hand [M65.321] 12/25/2012 DJD (degenerative joint disease) [M19.90] Marital conflict [Z63.0] 03/15/2014 Vitamin D deficiency [E55.9] 07/13/2014 Attention deficit hyperactivity disorder (ADHD)*02/10/2015 Bilateral low back pain with right-sided sciati*06/02/2015 Right hip pain [M25.551] 06/02/2015 Recurrent major depressive disorder, in partial*09/26/2015 Pain in right hip [M25.551] 10/25/2015 Trochanteric bursitis of both hips [M70.61, M70*10/25/2015 Chronic bilateral low back pain without sciatic*10/25/2015 Trigger little finger of left hand [M65.352] 01/23/2016 Trigger ring finger of left hand [M65.342] 01/23/2016 Trigger middle finger of left hand [M65.332] 01/23/2016 Bilateral hip pain [M25.551, M25.552] 09/20/2016 Greater trochanteric bursitis of both hips [M70*09/20/2016 Status post bariatric surgery [Z98.84] 10/11/2016 Dysuria [R30.0] 11/21/2017 Nonrheumatic aortic valve stenosis [I35.0] 12/19/2018 HTN, goal below 130/80 [I10] 12/19/2018 Prescriptions ordered this encounter Disp Refills Start End LEVOTHYROXINE 50 MCG TABLET 30 t* 2 09/23/2019 Route: ORAL Sig: Take 1 tablet by mouth daily before breakfast. ID# [id number] Medications Discontinued During This Encounter levothyroxine (SYNTHROID) 50 mcg tab* 30 t* 11 08/03/201909/22 Route: ORAL Sig: Take 1 tablet by mouth daily before breakfast. ID# [id number] Disc: Reason for discontinue is not on file. Encounter Status:Closed by IVIS MONTELONGO LPN on 09/23/19 cnpn on 2019-09-17 CNPN Telephone (FAMPWS) Normal 09-17-2019 [place] SONNY Lopez ([id number]) 1940 [facility] Date Time Provider Department ([id number]) 09/17/19 MATI MONTENEGROWS During your visit today, we recorded the following informati on about you: Mayra Ruiz LPN 09/17/2019 4:30 PM Signed Pt calls to state she had an injection w/ Dr. Dennis on 09/06 for L hip bursitis. She states she called Dr. Dennis today with upda te on pain level and was told she needed to contact PCP for rx. (See p dax note from Dr. Dennis- recommended NSAIDS if ok per PCP). She states pain is L uppe r leg (L knee to L hip) rates pain 10/10, sharp, constant. She states she is currently using aleve 2 tablets every 8hrs, ice and heat. This nurse ask ed several times if pt was using Aleve that often, pt states yes. She does intend to start PT on Saturday unless this gets cancelled d/t COVID19 concerns. Please advise. Mayra Fish APRN.[facility] 09/18/2019 11:48 AM Signed Aleve should be Q 12 hours If she is taking one OTC strength Q 8 hours that is OK (3 pe r day). No more than 4 OTC strength Aleve per day. She has history of ulcer, would take with food, add PP I or H2 jaguar if not already taking. NSAID for one month, then reassess. PCP may have alternate recommendations Martinez Hairston [facility] 09/18/2019 2:10 PM Signed Patient is notified of all information and verbalizes unders kofi Hairston [facility] September 18, 2019 2:10 PM Allergies As of Date: 09/17/2019 Noted Allergy Reaction MACROBID (NITROFURANTOIN MONOHYD/*01/10/2009 8 - GI Upset ADHESIVE TAPE (ROSINS) 03/03/2013 14 - Other: See Comments Comments: redness ATIVAN (LORAZEPAM) 12/27/2015 1 - Mental Status Change BENZODIAZEPINES 12/22/2002 1 - Mental Status Change Comments: ativan--made her loopy while in hospital CIPROFLOXACIN 04/27/2008 9 - Itching Comments: Oral Yeast Infection Thrush DEMEROL (MEPERIDINE HCL) 05/04/2005 LATEX 12/22/2002 2 - Rash Comments: Pt notes is a sensitivity, not allergy SULFA (SULFONAMIDE ANTIBIOTICS) 12/22/2002 14 - Other: See C omments Comments: Patient was treated for UTI in October 2011 after told nurse that reaction was just yeast infection (not vomiting as was previously listed) XANTHINES 12/22/2002 Comments: matti Date Reviewed: 09/07/2019 Reviewed by: Vidal Dennis - Fully Assessed Reason for Visit: Pain [78] Prescriptions as of 09/17/2019 Sig: GABAPENTIN 300 MG CAPSULE Take 2 capsules by mouth twic* FUROSEMIDE 20 MG TABLET Take 1 tablet by mouth once d* HYDROCODONE 5 MG-ACETAMINOPHE* Take 0.5-1 tablets by mouth o * LISINOPRIL 10 MG TABLET Take 1 tablet by mouth once d* NYSTATIN 100,000 UNIT/ML ORAL* One teaspoon swish in mouth f * LEVOTHYROXINE 50 MCG TABLET Take 1 tablet by mouth daily * FAMOTIDINE 20 MG TABLET Take 1 tablet by mouth twice * CYCLOBENZAPRINE 10 MG TABLET Take 1 tablet by mouth daily * ATORVASTATIN 20 MG TABLET Take 1 tablet by mouth once d* MIRTAZAPINE 15 MG TABLET Take 1 tablet by mouth daily * PAROXETINE 10 MG TABLET Take 1 tablet by mouth once d* PERFLUTREN LIPID MICROSPHERES* Inject 1.3 mL intravenously a * CALCIUM 600 ORAL Take by mouth. VITAMIN E 400 UNIT CAPSULE Take 400 Units by mouth once * CYANOCOBALAMIN (VIT B-12) 500* Take by mouth once daily. CRANBERRY EXTRACT 200 MG CAPS* Take 800 mg by mouth. BLOOD SUGAR DIAGNOSTIC STRIPS Test blood sugar(s) 1 times d* GLIMEPIRIDE 1 MG TABLET Take 1 tablet by mouth daily * VITS,CALCIUM 21-IRON* Take by mouth. Pt is taking 2 * CYANOCOBALAMIN (VIT B-12) 1,0* 1 mL IM every 3 weeks BUPROPION XL 150 MG TAB Take 1 tablet by mouth once d* METFORMIN 850 MG TABLET Take 1 tablet by mouth twice * POTASSIUM CHLORIDE ER 10 MEQ * Take 1 capsule by mouth once * Patient not taking: Reported on 07/06/2019 BLOOD-GLUCOSE METER KIT Glucose Meter of Choice - Kit* LANCETS Test blood sugar(s) 1 times d* BLOOD-GLUCOSE METER KIT Glucose Meter of Choice, insu* BLOOD SUGAR DIAGNOSTIC STRIPS Test blood sugar(s) 1x daily.* BD LUER-MARLIN SYRINGE 3 ML 23 X* USE FOR B-12 INJECTIONS EVERY * MULTIVITAMIN CAPSULE Take 1 capsule by mouth once * CHOLECALCIFEROL (VITAMIN D3) * Take 2 tablets by mouth once * MELATONIN 10 MG TABLET Take 10 mg by mouth daily at * ACYCLOVIR 5 % TOPICAL OINTMENT Apply 6 times daily for 7 day * LANCETS Use as instructed Problem List As Of Date 09/17/2019 Noted Resolved ROTATOR CUFF SYND NOS [M71.9, M67.919] 12/22/2002 Lateral epicondylitis of elbow [M77.10] 12/22/2002 0 JOINT PAIN-UP/ARM [M25.529] 02/02/2003 TRIGGER FINGER [M65.30] 03/30/2003 More... Follow-up examination following surgery [V67.0] 07/18/2004 1 Other tenosynovitis of hand and wrist [M65.849,*05/01/2005 1 Hyperlipidemia [E78.5] More... Iron deficiency anemia [D50.9] More... PERNICIOUS ANEMIA [D51.0] More... More... More... Diabetes mellitus type 2, controlled, without c*05/07/2005 More... Pain in soft tissues of limb [M79.609] 05/15/2005 04/18/2010 INSOMNIA NOS [G47.00] 07/25/2005 More... OSTEOPENIA [M89.9, M94.9] 10/23/2005 More... PEPTIC ULCER NOS [K27.9] 10/23/2005 Unspecified ventral hernia without mention of o*10/23/2005 1 DIVERTICULOSIS OF COLON W/O BLEED [K57.30] 10/23/2005 IRRITABLE COLON [K58.9] 11/28/2005 Abdominal pain, right upper quadrant [R10.11] 04/05/2006 RECURRENT UTI's [N39.0] 03/22/2008 04/18/2010 Fibromyalgia [M79.7] 06/29/2008 More... Abdominal pain, other specified site [R10.9] 06/29/200803/31 HEMORRHOIDS NOS [K64.9] 06/29/2008 DISLOC DIST RADIOULN-CLOSE [S63.016A] 07/13/2008 Abdominal pain, generalized [R10.84] 10/29/2008 04/18/2010 PULMONARY NODULE [R22.2] 01/17/2009 More... ATROPHIC VAGINITIS [N95.2] 01/17/2009 FELIPE (Generalized Anxiety Disorder) [F41.1] 03/20/2010 Cervicalgia [M54.2] 05/22/2010 Other physical therapy [[id number]] 06/21/2010 01/06/2016 Other specified disorder of bladder [596.8] 07/25/201001/05 Recurrent UTI [N39.0] 07/03/2011 01/06/2016 Polypharmacy [Z79.899] 07/03/2011 Abnormality of urethral meatus [Q64.70] 07/16/2011 Generalized abdominal pain [R10.84] 07/16/2011 Urinary retention [R33.9] 07/16/2011 Hypothyroidism [E03.9] 01/07/2012 Urgency of urination [R39.15] 03/19/2012 Urge incontinence [N39.41] 03/19/2012 Trigger index finger of right hand [M65.321] 12/25/2012 DJD (degenerative joint disease) [M19.90] Marital conflict [Z63.0] 03/15/2014 Vitamin D deficiency [E55.9] 07/13/2014 Attention deficit hyperactivity disorder (ADHD)*02/10/2015 Bilateral low back pain with right-sided sciati*06/02/2015 Right hip pain [M25.551] 06/02/2015 Recurrent major depressive disorder, in partial*09/26/2015 Pain in right hip [M25.551] 10/25/2015 Trochanteric bursitis of both hips [M70.61, M70*10/25/2015 Chronic bilateral low back pain without sciatic*10/25/2015 Trigger little finger of left hand [M65.352] 01/23/2016 Trigger ring finger of left hand [M65.342] 01/23/2016 Trigger middle finger of left hand [M65.332] 01/23/2016 Bilateral hip pain [M25.551, M25.552] 09/20/2016 Greater trochanteric bursitis of both hips [M70*09/20/2016 Status post bariatric surgery [Z98.84] 10/11/2016 Dysuria [R30.0] 11/21/2017 Nonrheumatic aortic valve stenosis [I35.0] 12/19/2018 HTN, goal below 130/80 [I10] 12/19/2018 Encounter Status:Closed by MARTINEZ HAIRSTON CMA on 09/18/19 cnpn on 2019-09-16 CNPN Telephone (ORTHWS) Normal 09-16-[address] [place] [facility] SONNY DENNIS ([id number]) 1940 [facility] Date Time Provider Department ([id number]) 09/16/19 VIDAL DENNIS During your visit today, we recorded the following informati on about you: Candaec Luukadi Stephen 09/16/2019 3:15 PM Signed Patient calling stating that she is still having pain in L leg and hip. Rates pain 8-10/10 and states it is sharp and stabbing. Patient had injection at [facility] on 09/06 OV. Vidal Dennis MD 09/17/2019 8:49 AM Signed She has a condition that requires physical therapy and yaquelin atments. There is nothing from a surgical standpoint that can help hip bursiti s. I would recommend a stretching and strengthening program and treatme nts with PT. NSAIDs if her medical condit ions allow, would get the OK from her PCP for that. Teresa Naranjo Ma 09/17/2019 4:22 PM Signed Patient called and given provider's resp onse. States she has therapy scheduled and verbalized understanding. Allergies As of Date: 09/16/2019 Noted Allergy Reaction MACROBID (NITROFURANTOIN MONOHYD/*01/10/2009 8 - GI Upset ADHESIVE TAPE (ROSINS) 03/03/2013 14 - Other: See Comments Comments: redness ATIVAN (LORAZEPAM) 12/27/2015 1 - Mental Status Change BENZODIAZEPINES 12/22/2002 1 - Mental Status Change Comments: ativan--made her loopy while in hospital CIPROFLOXACIN 04/27/2008 9 - Itching Comments: Oral Yeast Infection Thrush DEMEROL (MEPERIDINE HCL) 05/04/2005 LATEX 12/22/2002 2 - Rash Comments: Pt notes is a sensitivity, not allergy SULFA (SULFONAMIDE ANTIBIOTICS) 12/22/2002 14 - Other: See C omments Comments: Patient was treated for UTI in October 2011 after told nurse that reaction was just yeast infection (not vomiting as was previously listed) XANTHINES 12/22/2002 Comments: darvon Date Reviewed: 09/07/2019 Reviewed by: Vidal Dennis - Fully Assessed Reason for Visit: Patient Update [1234] Prescriptions as of 09/16/2019 Sig: GABAPENTIN 300 MG CAPSULE Take 2 capsules by mouth twic* FUROSEMIDE 20 MG TABLET Take 1 tablet by mouth once d* HYDROCODONE 5 MG-ACETAMINOPHE* Take 0.5-1 tablets by mouth o * LISINOPRIL 10 MG TABLET Take 1 tablet by mouth once d* NYSTATIN 100,000 UNIT/ML ORAL* One teaspoon swish in mouth f * LEVOTHYROXINE 50 MCG TABLET Take 1 tablet by mouth daily * FAMOTIDINE 20 MG TABLET Take 1 tablet by mouth twice * CYCLOBENZAPRINE 10 MG TABLET Take 1 tablet by mouth daily * ATORVASTATIN 20 MG TABLET Take 1 tablet by mouth once d* MIRTAZAPINE 15 MG TABLET Take 1 tablet by mouth daily * PAROXETINE 10 MG TABLET Take 1 tablet by mouth once d* PERFLUTREN LIPID MICROSPHERES* Inject 1.3 mL intravenously a * CALCIUM 600 ORAL Take by mouth. VITAMIN E 400 UNIT CAPSULE Take 400 Units by mouth once * CYANOCOBALAMIN (VIT B-12) 500* Take by mouth once daily. CRANBERRY EXTRACT 200 MG CAPS* Take 800 mg by mouth. BLOOD SUGAR DIAGNOSTIC STRIPS Test blood sugar(s) 1 times d* GLIMEPIRIDE 1 MG TABLET Take 1 tablet by mouth daily * VITS,CALCIUM 21-IRON* Take by mouth. Pt is taking 2 * CYANOCOBALAMIN (VIT B-12) 1,0* 1 mL IM every 3 weeks BUPROPION XL 150 MG TAB Take 1 tablet by mouth once d* METFORMIN 850 MG TABLET Take 1 tablet by mouth twice * POTASSIUM CHLORIDE ER 10 MEQ * Take 1 capsule by mouth once * Patient not taking: Reported on 07/06/2019 BLOOD-GLUCOSE METER KIT Glucose Meter of Choice - Kit* LANCETS Test blood sugar(s) 1 times d* BLOOD-GLUCOSE METER KIT Glucose Meter of Choice, insu* BLOOD SUGAR DIAGNOSTIC STRIPS Test blood sugar(s) 1x daily.* BD LUER-MARLIN SYRINGE 3 ML 23 X* USE FOR B-12 INJECTIONS EVERY * MULTIVITAMIN CAPSULE Take 1 capsule by mouth once * CHOLECALCIFEROL (VITAMIN D3) * Take 2 tablets by mouth once * MELATONIN 10 MG TABLET Take 10 mg by mouth daily at * ACYCLOVIR 5 % TOPICAL OINTMENT Apply 6 times daily for 7 day * LANCETS Use as instructed Problem List As Of Date 09/16/2019 Noted Resolved ROTATOR CUFF SYND NOS [M71.9, M67.919] 12/22/2002 Lateral epicondylitis of elbow [M77.10] 12/22/2002 0 JOINT PAIN-UP/ARM [M25.529] 02/02/2003 TRIGGER FINGER [M65.30] 03/30/2003 More... Follow-up examination following surgery [V67.0] 07/18/2004 1 Other tenosynovitis of hand and wrist [M65.849,*05/01/2005 1 Hyperlipidemia [E78.5] More... Iron deficiency anemia [D50.9] More... PERNICIOUS ANEMIA [D51.0] More... More... More... Diabetes mellitus type 2, controlled, without c*05/07/2005 More... Pain in soft tissues of limb [M79.609] 05/15/2005 04/18/2010 INSOMNIA NOS [G47.00] 07/25/2005 More... OSTEOPENIA [M89.9, M94.9] 10/23/2005 More... PEPTIC ULCER NOS [K27.9] 10/23/2005 Unspecified ventral hernia without mention of o*10/23/2005 1 DIVERTICULOSIS OF COLON W/O BLEED [K57.30] 10/23/2005 IRRITABLE COLON [K58.9] 11/28/2005 Abdominal pain, right upper quadrant [R10.11] 04/05/2006 RECURRENT UTI's [N39.0] 03/22/2008 04/18/2010 Fibromyalgia [M79.7] 06/29/2008 More... Abdominal pain, other specified site [R10.9] 06/29/200803/31 HEMORRHOIDS NOS [K64.9] 06/29/2008 DISLOC DIST RADIOULN-CLOSE [S63.016A] 07/13/2008 Abdominal pain, generalized [R10.84] 10/29/2008 04/18/2010 PULMONARY NODULE [R22.2] 01/17/2009 More... ATROPHIC VAGINITIS [N95.2] 01/17/2009 FELIPE (Generalized Anxiety Disorder) [F41.1] 03/20/2010 Cervicalgia [M54.2] 05/22/2010 Other physical therapy [[id number]] 06/21/2010 01/06/2016 Other specified disorder of bladder [596.8] 07/25/201001/05 Recurrent UTI [N39.0] 07/03/2011 01/06/2016 Polypharmacy [Z79.899] 07/03/2011 Abnormality of urethral meatus [Q64.70] 07/16/2011 Generalized abdominal pain [R10.84] 07/16/2011 Urinary retention [R33.9] 07/16/2011 Hypothyroidism [E03.9] 01/07/2012 Urgency of urination [R39.15] 03/19/2012 Urge incontinence [N39.41] 03/19/2012 Trigger index finger of right hand [M65.321] 12/25/2012 DJD (degenerative joint disease) [M19.90] Marital conflict [Z63.0] 03/15/2014 Vitamin D deficiency [E55.9] 07/13/2014 Attention deficit hyperactivity disorder (ADHD)*02/10/2015 Bilateral low back pain with right-sided sciati*06/02/2015 Right hip pain [M25.551] 06/02/2015 Recurrent major depressive disorder, in partial*09/26/2015 Pain in right hip [M25.551] 10/25/2015 Trochanteric bursitis of both hips [M70.61, M70*10/25/2015 Chronic bilateral low back pain without sciatic*10/25/2015 Trigger little finger of left hand [M65.352] 01/23/2016 Trigger ring finger of left hand [M65.342] 01/23/2016 Trigger middle finger of left hand [M65.332] 01/23/2016 Bilateral hip pain [M25.551, M25.552] 09/20/2016 Greater trochanteric bursitis of both hips [M70*09/20/2016 Status post bariatric surgery [Z98.84] 10/11/2016 Dysuria [R30.0] 11/21/2017 Nonrheumatic aortic valve stenosis [I35.0] 12/19/2018 HTN, goal below 130/80 [I10] 12/19/2018 Encounter Status:Closed by TERESA NARANJO MA on 09/17/19 obsolete on 2019-08 OBSOLETE Refill (INTMWS) Normal 09-14-[address] [facility] SONNY DENNIS ([id number]) 1940 [facility] Date Time Provider Department ([id number]) 09/14/19 MATI MONTENEGRO INTMWS During your visit today, we recorded the following informati on about you: Denise Traore Pss 09/14/2019 4:10 PM Signed Patient has been identified by name and date of : Yes Pending Prescriptions Disp Refills GABAPENTIN 300 MG CAPSULE 360 capsule 1 Sig: Take 2 capsules by mouth twice daily for 180 days. ID# [id number] ROSARIO: No FUROSEMIDE 20 MG TABLET 30 tablet 0 Sig: Take 1 tablet by mouth once daily. as needed for leg sw elling. ROSARIO: No RX INSTRUCTIONS: Patient aware RX will be sent to pharmacy. No need to notify patient. Patient aware RX escripted to mail away pharmacy. No n eed to notify patient. Denise Traore Pss Jake Fish APRN.LAB ASST 09/14/2019 4:49 PM Signed rx sent Allergies As of Date: 09/14/2019 Noted Allergy Reaction MACROBID (NITROFURANTOIN MONOHYD/*01/10/2009 8 - GI Upset ADHESIVE TAPE (ROSINS) 03/03/2013 14 - Other: See Comments Comments: redness ATIVAN (LORAZEPAM) 12/27/2015 1 - Mental Status Change BENZODIAZEPINES 12/22/2002 1 - Mental Status Change Comments: ativan--made her loopy while in hospital CIPROFLOXACIN 04/27/2008 9 - Itching Comments: Oral Yeast Infection Thrush DEMEROL (MEPERIDINE HCL) 05/04/2005 LATEX 12/22/2002 2 - Rash Comments: Pt notes is a sensitivity, not allergy SULFA (SULFONAMIDE ANTIBIOTICS) 12/22/2002 14 - Other: See C omments Comments: Patient was treated for UTI in October 2011 after told nurse that reaction was just yeast infection (not vomiting as was previously listed) XANTHINES 12/22/2002 Comments: kiaran Date Reviewed: 09/07/2019 Reviewed by: Vidal Dennis - Fully Assessed Reason for Visit: Refill Request [94] Visit Diagnosis:Chronic back pain greater than 3 months duration [M54.9, G89.29] Order(s):gabapentin (NEURONTIN) 300 mg capsuleTake 2 c apsules by mouth twice daily for 180 days. ID# [id number]: 360 capsuleRfl: 1 furosemide (LASIX) 20 mg tabletTake 1 tablet by mouth once d aily. as needed for leg swelling.Disp: 30 tabletRfl: 0 Prescriptions as of 09/14/2019 Sig: GABAPENTIN 300 MG CAPSULE Take 2 capsules by mouth twic* FUROSEMIDE 20 MG TABLET Take 1 tablet by mouth once d* HYDROCODONE 5 MG-ACETAMINOPHE* Take 0.5-1 tablets by mouth o * LISINOPRIL 10 MG TABLET Take 1 tablet by mouth once d* NYSTATIN 100,000 UNIT/ML ORAL* One teaspoon swish in mouth f * LEVOTHYROXINE 50 MCG TABLET Take 1 tablet by mouth daily * FAMOTIDINE 20 MG TABLET Take 1 tablet by mouth twice * CYCLOBENZAPRINE 10 MG TABLET Take 1 tablet by mouth daily * ATORVASTATIN 20 MG TABLET Take 1 tablet by mouth once d* MIRTAZAPINE 15 MG TABLET Take 1 tablet by mouth daily * PAROXETINE 10 MG TABLET Take 1 tablet by mouth once d* PERFLUTREN LIPID MICROSPHERES* Inject 1.3 mL intravenously a * CALCIUM 600 ORAL Take by mouth. VITAMIN E 400 UNIT CAPSULE Take 400 Units by mouth once * CYANOCOBALAMIN (VIT B-12) 500* Take by mouth once daily. CRANBERRY EXTRACT 200 MG CAPS* Take 800 mg by mouth. BLOOD SUGAR DIAGNOSTIC STRIPS Test blood sugar(s) 1 times d* GLIMEPIRIDE 1 MG TABLET Take 1 tablet by mouth daily * VITS,CALCIUM 21-IRON* Take by mouth. Pt is taking 2 * CYANOCOBALAMIN (VIT B-12) 1,0* 1 mL IM every 3 weeks BUPROPION XL 150 MG TAB Take 1 tablet by mouth once d* METFORMIN 850 MG TABLET Take 1 tablet by mouth twice * POTASSIUM CHLORIDE ER 10 MEQ * Take 1 capsule by mouth once * Patient not taking: Reported on 07/06/2019 BLOOD-GLUCOSE METER KIT Glucose Meter of Choice - Kit* LANCETS Test blood sugar(s) 1 times d* BLOOD-GLUCOSE METER KIT Glucose Meter of Choice, insu* BLOOD SUGAR DIAGNOSTIC STRIPS Test blood sugar(s) 1x daily.* BD LUER-MARLIN SYRINGE 3 ML 23 X* USE FOR B-12 INJECTIONS EVERY * MULTIVITAMIN CAPSULE Take 1 capsule by mouth once * CHOLECALCIFEROL (VITAMIN D3) * Take 2 tablets by mouth once * MELATONIN 10 MG TABLET Take 10 mg by mouth daily at * ACYCLOVIR 5 % TOPICAL OINTMENT Apply 6 times daily for 7 day * LANCETS Use as instructed Problem List As Of Date 09/14/2019 Noted Resolved ROTATOR CUFF SYND NOS [M71.9, M67.919] 12/22/2002 Lateral epicondylitis of elbow [M77.10] 12/22/2002 0 JOINT PAIN-UP/ARM [M25.529] 02/02/2003 TRIGGER FINGER [M65.30] 03/30/2003 More... Follow-up examination following surgery [V67.0] 07/18/2004 1 Other tenosynovitis of hand and wrist [M65.849,*05/01/2005 1 Hyperlipidemia [E78.5] More... Iron deficiency anemia [D50.9] More... PERNICIOUS ANEMIA [D51.0] More... More... More... Diabetes mellitus type 2, controlled, without c*05/07/2005 More... Pain in soft tissues of limb [M79.609] 05/15/2005 04/18/2010 INSOMNIA NOS [G47.00] 07/25/2005 More... OSTEOPENIA [M89.9, M94.9] 10/23/2005 More... PEPTIC ULCER NOS [K27.9] 10/23/2005 Unspecified ventral hernia without mention of o*10/23/2005 1 DIVERTICULOSIS OF COLON W/O BLEED [K57.30] 10/23/2005 IRRITABLE COLON [K58.9] 11/28/2005 Abdominal pain, right upper quadrant [R10.11] 04/05/2006 RECURRENT UTI's [N39.0] 03/22/2008 04/18/2010 Fibromyalgia [M79.7] 06/29/2008 More... Abdominal pain, other specified site [R10.9] 06/29/200803/31 HEMORRHOIDS NOS [K64.9] 06/29/2008 DISLOC DIST RADIOULN-CLOSE [S63.016A] 07/13/2008 Abdominal pain, generalized [R10.84] 10/29/2008 04/18/2010 PULMONARY NODULE [R22.2] 01/17/2009 More... ATROPHIC VAGINITIS [N95.2] 01/17/2009 FELIPE (Generalized Anxiety Disorder) [F41.1] 03/20/2010 Cervicalgia [M54.2] 05/22/2010 Other physical therapy [[id number]] 06/21/2010 01/06/2016 Other specified disorder of bladder [596.8] 07/25/201001/05 Recurrent UTI [N39.0] 07/03/2011 01/06/2016 Polypharmacy [Z79.899] 07/03/2011 Abnormality of urethral meatus [Q64.70] 07/16/2011 Generalized abdominal pain [R10.84] 07/16/2011 Urinary retention [R33.9] 07/16/2011 Hypothyroidism [E03.9] 01/07/2012 Urgency of urination [R39.15] 03/19/2012 Urge incontinence [N39.41] 03/19/2012 Trigger index finger of right hand [M65.321] 12/25/2012 DJD (degenerative joint disease) [M19.90] Marital conflict [Z63.0] 03/15/2014 Vitamin D deficiency [E55.9] 07/13/2014 Attention deficit hyperactivity disorder (ADHD)*02/10/2015 Bilateral low back pain with right-sided sciati*06/02/2015 Right hip pain [M25.551] 06/02/2015 Recurrent major depressive disorder, in partial*09/26/2015 Pain in right hip [M25.551] 10/25/2015 Trochanteric bursitis of both hips [M70.61, M70*10/25/2015 Chronic bilateral low back pain without sciatic*10/25/2015 Trigger little finger of left hand [M65.352] 01/23/2016 Trigger ring finger of left hand [M65.342] 01/23/2016 Trigger middle finger of left hand [M65.332] 01/23/2016 Bilateral hip pain [M25.551, M25.552] 09/20/2016 Greater trochanteric bursitis of both hips [M70*09/20/2016 Status post bariatric surgery [Z98.84] 10/11/2016 Dysuria [R30.0] 11/21/2017 Nonrheumatic aortic valve stenosis [I35.0] 12/19/2018 HTN, goal below 130/80 [I10] 12/19/2018 Prescriptions ordered this encounter Disp Refills Start End GABAPENTIN 300 MG CAPSULE 360 * 1 09/14/2019 03/12/2020 Route: ORAL Sig: Take 2 capsules by mouth twice daily for 180 days. ID# [id number] FUROSEMIDE 20 MG TABLET 30 t* 0 09/14/2019 Route: ORAL Sig: Take 1 tablet by mouth once daily. as needed for leg sw elling. Medications Discontinued During This Encounter gabapentin (NEURONTIN) 300 mg capsule 360 * 1 09/04/20182019 Route: ORAL Sig: Take 2 capsules by mouth twice daily for 180 days. ID# [id number] Disc: Reason for discontinue is not on file. furosemide (LASIX) 20 mg tablet 30 t* 0 05/26/2019 09/14/2019 Route: ORAL Sig: Take 1 tablet by mouth once daily. as needed for leg sw elling. Disc: Reason for discontinue is not on file. Encounter Status:Closed by ABE VEGACARLOSI on 09/14/19 progress on 2019-08 PROGRESS HNO ID: [id number] Normal 09-07-2019 [facility] Author: Vidal Dennis [place] Service: ? ([id number]) Author Type: Physician Type: Progress Notes Filed: 09/07/2019 9:16 AM Note Text: Vidal Dennis MD Department of Orthopaedics Orthopa[facility] [address] [facility] [address] Dept: [phone] Dept September 07, 2019 CHIEF COMPLAINT: Established Patient and Pain of the Left Hi p AMB ROOMING INTAKE FLOWSHEET DATA Risk Screening Do you have concerns about personal safety or safety in the home?: No Pain Pain Level: 10 Pain Location: Hip-Left Description: Sharp, Stabbing Duration Amount of Time: 2 Duration Units: Months Frequency: Continuous Intervention: Medication, Cold Patient here today with her spouse for left hip pain x 2 mon ths. She did have low back surgery 12/2018 and was doing great until the h ip started bothering her. Back surgeon referred patient to return to [place] in management. She did have an injection with pain management s hortly after this pain started and she did not get any relief. X-ray at [facility] on 06/04/2019. ASSESSMENT: M25.552 Greater trochanteric pain syndrome of left lower ext remity PLAN: Patient would like a cortisone injection in the office today . Physical therapy program as advised. FOLLOW UP INSTRUCTIONS: As needed Ms. Sonny Dennis was advised as to contrast therapie s and/or to take analgesics/anti-inflammatories as needed and all contra indications were reviewed. OBJECTIVE: Ms. Sonny Dennis is a pleasant 79 year old in no bari arent distress. Gen:There were no vitals taken for this visit. nl development, non obese, no deformities ENT: Normocephalic, normal hearing, moist mucosa CV: Pulses:DP/PT= 2+ and symmetric, capillary refill < 2 sec s, no peripheral edema/varicosities Skin: no rash, bruising or lesions. Good turgor. Psych: cooperative and appropriate, alert and oriented x 3, good mood and affect. Musculoskeletal: Patient with an antalgic gait to the left. Exquisite tendern ess to palpation over the greater trochanter. Pain with resisted ab duction. Gentle flexion and internal rotation is without pain of the hip. Good range of motion of the hip. Large Joint Arthro/Inj: L greater trochanteric bursa The risks, benefits and alternatives of the procedure were r eviewed with the patient/surrogate, who agreed to proceed. Written Consent Obtained: N/A Sign In Communication: Completed Time Out: Time Out completed The Time-Out verifies the correct patient, procedure, side /site, position (if applicable) and completion and review of fire r isk assessment/protocols (if appropriate): Affirmation of Time Out: Yes Signout Discussion: Yes 09/07/2019 9:07 AM The procedure site was prepped in the usual sterile fashion. Allergies were reviewed Site: L greater trochanteric bursa Medications: 6 mg betamethasone acetate-betamethasone sodium phosphate 6 mg/mL Anesthetics: 2 mL lidocaine (PF) 10 mg/mL (1 %) Outcome: Tolerated well, no immediate complications Post-injection instructions were reviewed with the patient a nd the patient voiced understanding of these instructions. IMAGING: IMPRESSION: No acute osseous finding left hip. ?Left hip is maintained. ? Chondrocalcinosis. Salesperson Parts: WILLIE ? Transcribe Date/Time: May 12:03P Dictated by : DAMARI DOHERTY MD This examination was interpreted and the report reviewed and electronically signed by: DAMARI DOHERTY MD on May 12:04PM ?EST Results-Findings * * *Final Report* * * DATE OF EXAM: May ?9:54AM ? WOX ? [id number] ?- ?XR HIP 3V PELV+ AP/LAT LT ?/ [id number] PROCEDURE REASON: Left leg pain ?? ? * * * * Physician Interpretation * * * * ?EXAMINATION: ?XR HIP 3V PELV+ AP/LAT LT CLINICAL HISTORY: ? Left sided groin pain that radiates down the left leg x 1 week without injury Left leg pain Technique: ? XR HIP 3V PELV+ AP/LAT LT -- LEFT with 3 views on 3 images Comparison: None RESULT: No fracture or dislocation. ?Joint spaces are maintained. ? Chondrocalcinosis. ?SI joints and pubic symphysis are intact . ? Postsurgical changes in the lower lumbar spine. Supporting Subjective Information Below: Past Medical History: PAST MEDICAL HISTORY Diagnosis Date - Abdominal pain, generalized - Abdominal pain, right upper quadrant - Abdominal pain, unspecified site - Anxiety state, unspecified - Depressive disorder, not elsewhere classified - Disorder of bone and cartilage, unspecified osteopenia - Diverticulosis of colon (without mention of hemorrhage) - DJD (degenerative joint disease) - Essential hypertension 01/06/2016 - Fibromyalgia - Iron deficiency anemia, unspecified - Other and unspecified hyperlipidemia - Pernicious anemia - Type II or unspecified type diabetes mellitus without ment ion of complication, not stated as uncontrolled dx'd early 30s Past Surgical History: PAST SURGICAL HISTORY Procedure Laterality Date - COLONOSCOP W/ OR W/O [facility] SPEC 01/29 Colonoscopy - COLONOSCOP W/ OR W/O [facility] SPEC 01/29, 04/05/06 - COLONOSCOPY W/BX 10/29/08 Diverticulosis - COLONOSCOPY W/BX 07/18/11 Repeat in - EGD W/O [facility] SPECIMEN W/BX 10/02, 04/05/06 - EGD W/O [facility] SPECIMEN W/BX 10/29/08 Patent gastrojejunostomy - EGD W/O OR W/BRUSH/WASH EGD - HYSTEROSCOPY, DIAGNOSTIC (SEPARATE 1998 Hysteroscopy - INCISE FINGER TENDON SHEATH 02/20/2013 Right index trigger finger release - LIGATE FALLOPIAN TUBE Tubal ligation - PAST SURGICAL HISTORY OF vagotomy - PAST SURGICAL HISTORY OF 2005 Right thumb and middle trigger finger release - PAST SURGICAL HISTORY OF Right shoulder - PAST SURGICAL HISTORY OF 1997 Right elbow - [facility] - PAST SURGICAL HISTORY OF Left 16 left middle, ring and small trigger finger releases - REMOVAL GALLBLADDER 1974 Cholecystectomy - REMV STOM,PART,DISTAL,GASTRODUOD 07/04/2000 Gastrectomy, partial, X-2 - REPAIR INCISIONAL HERNIA,REDUCIBLE 06/25/2001 Hernia repair, incisional - WRIST ARTHROSCOP,EXCIS TRIANG CART 2008 Right wrist Family History: FAMILY HISTORY Problem Relation Age of Onset - Stroke Mother - Hypertension Mother - Heart Mother - Stroke Father - Hypertension Father - Heart Brother - other (Lung Cancer) Brother mesothelioma - Heart Sister - other (Parkinson's Disease) Sister - Cancer Daughter melanoma - Ovarian cancer Sister diagnosed at Stage IV - Arthritis Sister Through out the whole family Social History: Social History Tobacco Use - Smoking status: Former Smoker Packs/day: 1.00 Years: 5.00 Pack years: 5.00 Types: Cigarettes Last attempt to quit: 01/05/1971 Years since quittin.7 - Smokeless tobacco: Never Used Substance Use Topics - Alcohol use: Yes Comment: Rarely - Drug use: No Medications: Current Outpatient Medications Medication Sig - HYDROcodone-acetaminophen (NORCO) 5-325 mg per tablet Take 0.5-1 tablets by mouth once daily as needed for up to 60 days. - lisinopril (ZESTRIL, PRINIVIL) 10 mg tablet Take 1 tablet by mouth once daily. As directed ID# [id number] - levothyroxine (SYNTHROID) 50 mcg tablet Take 1 tablet by m outh daily before breakfast. ID# [id number] - famotidine (PEPCID) 20 mg tablet Take 1 tablet by mouth tw ice daily. - cyclobenzaprine (FLEXERIL) 10 mg tablet Take 1 tablet by m outh daily at bedtime. ID# [id number] - atorvastatin (LIPITOR) 20 mg tablet Take 1 tablet by mouth once daily. - mirtazapine (REMERON) 15 mg tablet Take 1 tablet by mouth daily at bedtime. ID# [id number] - PARoxetine (PAXIL) 10 mg tablet Take 1 tablet by mouth onc e daily. ID# [id number] - furosemide (LASIX) 20 mg tablet Take 1 tablet by mouth onc e daily. as needed for leg swelling. - calcium carbonate (CALCIUM 600 ORAL) Take by mouth. - Vitamin E, dl, acetate, (VITAMIN E) 400 unit capsule Take 400 Units by mouth once daily. - cyanocobalamin (VITAMIN B-12) 500 mcg tab tab(s) Take by m outh once daily. - Cranberry Extract 200 mg cap Take 800 mg by mouth. - blood sugar diagnostic (BLOOD GLUCOSE TEST) test strip Willie t blood sugar(s) 1 times daily. Dx: Type 2 DM - Controlled E11.9 Ins ulin: No - glimepiride (AMARYL) 1 mg tablet Take 1 tablet by mouth da eb with breakfast. ID# [id number] - PNV Cmb#[id number] Acid ( COMPLETE) 14 mg iron- 400 mcg tab Take by mouth. Pt is taking 2 tablets daily - buPROPion XL (WELLBUTRIN XL) 150 mg 24 hr tablet Take 1 ta blet by mouth once daily. ID# [id number] - gabapentin (NEURONTIN) 300 mg capsule Take 2 capsules by m outh twice daily for 180 days. ID# [id number] - metFORMIN (GLUCOPHAGE) 850 mg tablet Take 1 tablet by mout h twice daily with meals. ID# [id number] - Blood-Glucose Meter monitoring kit Glucose Meter of Choice - Kit - Dx: Type 2 DM - Controlled E11.9 Test blood sugar 1 time daily. - Lancets lancets Test blood sugar(s) 1 times daily. Dx: Typ e 2 DM - Controlled E11.9 Insulin: No - Blood-Glucose Meter monitoring kit Glucose Meter of Choice , insurance preferred - Kit - Dx: Type 2 DM - Controlled E11.9 - blood sugar diagnostic (BLOOD GLUCOSE TEST) test strip Willie t blood sugar(s) 1x daily. Dx: Controlled DM type 2. Insulin: No - BD LUER-MARLIN SYRINGE 3 mL 23 x 1 syrg USE FOR B-12 INJECTI ONS EVERY 3 WEEKS OR DIRECTED - Multivitamin capsule Take 1 capsule by mouth once daily. - cholecalciferol (VITAMIN D) 1,000 unit tab tablet Take 2 t ablets by mouth once daily. - melatonin 10 mg tab Take 10 mg by mouth daily at bedtime. - Lancets (ACCU-CHEK MULTICLIX LANCET) Misc lancets Use as i nstructed - nystatin (MYCOSTATIN) 100,000 unit/mL suspension One teasp oon swish in mouth for several minutes then swallow (or expectorate) four times daily. Use until gone. - perflutren lipid microspheres (DEFINITY) 1.1 mg/mL injecti on (to be provided with echo procedure) Inject 1.3 mL intravenously as directed. - cyanocobalamin 1,000 mcg/mL soln 1 mL IM every 3 weeks - potassium chloride SR (MICRO-K) 10 mEq CR capsule Take 1 c apsule by mouth once daily. once daily for three days then once daily when taking furosemide. (Patient not taking: Reported on 07/06/2019 ) - acyclovir (ZOVIRAX) 5 % ointment Apply 6 times daily for 7 days for cold sores No current facility-administered medications for this visit. Allergies: Macrobid [Nitrofurantoin Monohyd/M-Cryst]; Adhesi ve Tape (Rosins); Ativan [Lorazepam]; Benzodiazepines; Ciprofloxacin ; Demerol [Meperidine Hcl]; Latex; Sulfa (Sulfonamide Antibiotics); Xa nthines ROS: General (negative for fatigue, malaise, weight loss/gain) HEENT (negative for headache, earache, recent vision changes , sinus pain, sore throat) Respiratory (no recent shortness of breath, hemoptysis) CV (negative for chest tightness, palpitations) Musculoskeletal (see HPI) Psych (no depression, anxiety) REFERRING PHYSICIAN: Ms. VelozSonny M Sonny was referred t o az for consultation by the following physician. This consultation n ote will be sent to the following physician by either mail or electronic medical record. Mati Montenegro MD [address] [facility] [address] This note was partially generated using [employer] recogni tion system, and there may be some incorrect words, spellings, and punctu ation that were not noted in checking the note before saving. Vidal Dennis MD cnov on 2019-09-07 CNOV Office Visit (JÚNIOR) Normal 09-07-19 [facility] SONNY DENNIS ([id number]) 1940 [address] [place] Date Time Provider Department () 09/07/19 9:00 AM VIDAL DENNIS During your visit today, we recorded the following informati on about you: Vidal Dennis MD 09/07/2019 9:16 AM Signed Vidal Dennis MD Department of Orthopaedics Orthopaedics [address] [facility] [address] Dept: [phone] Dept September 07, 2019 CHIEF COMPLAINT: Established Patient and Pain of the Left Hi p AMB ROOMING INTAKE FLOWSHEET DATA Risk Screening Do you have concerns about personal safety or safety in the home?: No Pain Pain Level: 10 Pain Location: Hip-Left Description: Sharp, Stabbing Duration Amount of Time: 2 Duration Units: Months Frequency: Continuous Intervention: Medication, Cold Patient here today with her spouse for left hip pain x 2 months. She did have low back surgery 12/2018 and was doing great until the hip started bothering her. Back surgeon referred patient to return to pain management. She did have an injection with pain management shortly after this pain started and she did not get any relief. X-ray at [facility] on 06/04/2019. ASSESSMENT: M25.552 Greater trochanteric pain syndrome of left lower ext remity PLAN: Patient would like a cortisone injection in the office today. Physical therapy program as advised. FOLLOW UP INSTRUCTIONS: As needed Ms. Sonny Dennis was advised as to contrast th erapies and/or to take analgesics/anti-inflammatories as needed and all contraindic ations were reviewed. OBJECTIVE: Ms. Sonny Dennis is a pleasant 79 year old in no a pparent distress. Gen:There were no vitals taken for this visit. nl development, non obese, no deformities ENT: Normocephalic, normal hearing, moist mucosa CV: Pulses:DP/PT= 2+ and symmetric, capillary refill < 2 secs, no peripheral edema/varicosities Skin: no rash, bruising or lesions. Good turgor. Psych: cooperative and appropriate, alert and oriented x 3, good mood and affect. Musculoskeletal: Patient with an antalgic gait to the left. Exquisite t enderness to palpation over the greater trochanter. Pain with resisted abduction. Gentle flexion and internal rotation is without pain of the hip. Good range of motion of the hip. Large Joint Arthro/Inj: L greater trochanteric bursa The risks, benefits and alternatives of the procedure were reviewed with the patient/surrogate, who agreed to proceed. Written Consent Obtained: N/A Sign In Communication: Completed Time Out: Time Out completed The Time-Out verifies the correct patient, procedure, side/site, position (if applicable) and completion and review of fire risk assessm ent/protocols (if appropriate): Affirmation of Time Out: Yes Signout Discussion: Yes 09/07/2019 9:07 AM The procedure site was prepped in the usual sterile fashion. Allergies were reviewed Site: L greater trochanteric bursa Medications: 6 mg betamethasone acetate- betamethasone sodium phosphate 6 mg/mL Anesthetics: 2 mL lidocaine (PF) 10 mg/mL (1 %) Outcome: Tolerated well, no immediate complications Post-injection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 ATIVAN (LORAZEPAM) 12/27/2015 1 - Mental Status Change BENZODIAZEPINES 12/22/2002 1 - Mental Status Change Comments: ativan--made her loopy while in hospital CIPROFLOXACIN 04/27/2008 9 - Itching Comments: Oral Yeast Infection Thrush DEMEROL (MEPERIDINE HCL) 05/04/2005 LATEX 12/22/2002 2 - Rash Comments: Pt notes is a sensitivity, not allergy SULFA (SULFONAMIDE ANTIBIOTICS) 12/22/2002 14 - Other: See C amina Comments: Patient was treated for UTI in October 2011 after told nurse that reaction was just yeast infection (not vomiting as was previously listed) XANTHINES 12/22/2002 Comments: matti Date Reviewed: 07/06/2019 Reviewed by: Chelsea Farris LPN - Fully Assessed Reason for Visit: Refill Request [94] Order(s):lisinopril (ZESTRIL, PRINIVIL) 10 mg tabletTake 1 t ablet by mouth once daily. As directed ID# [id number]: 90 tabletRfl: 3 Prescriptions as of 08/13/2019 Sig: LISINOPRIL 10 MG TABLET Take 1 tablet by mouth once d* LEVOTHYROXINE 50 MCG TABLET Take 1 tablet by mouth daily * FAMOTIDINE 20 MG TABLET Take 1 tablet by mouth twice * CYCLOBENZAPRINE 10 MG TABLET Take 1 tablet by mouth daily * ATORVASTATIN 20 MG TABLET Take 1 tablet by mouth once d* MIRTAZAPINE 15 MG TABLET Take 1 tablet by mouth daily * PAROXETINE 10 MG TABLET Take 1 tablet by mouth once d* HYDROCODONE 5 MG-ACETAMINOPHE* Take 0.5-1 tablets by mouth o * PERFLUTREN LIPID MICROSPHERES* Inject 1.3 mL intravenously a * FUROSEMIDE 20 MG TABLET Take 1 tablet by mouth once d* CALCIUM 600 ORAL Take by mouth. VITAMIN E 400 UNIT CAPSULE Take 400 Units by mouth once * CYANOCOBALAMIN (VIT B-12) 500* Take by mouth once daily. CRANBERRY EXTRACT 200 MG CAPS* Take 800 mg by mouth. BLOOD SUGAR DIAGNOSTIC STRIPS Test blood sugar(s) 1 times d* GLIMEPIRIDE 1 MG TABLET Take 1 tablet by mouth daily * VITS,CALCIUM 21-IRON* Take by mouth. Pt is taking 2 * CYANOCOBALAMIN (VIT B-12) 1,0* 1 mL IM every 3 weeks BUPROPION XL 150 MG TAB Take 1 tablet by mouth once d* GABAPENTIN 300 MG CAPSULE Take 2 capsules by mouth twic* METFORMIN 850 MG TABLET Take 1 tablet by mouth twice * POTASSIUM CHLORIDE ER 10 MEQ * Take 1 capsule by mouth once * Patient not taking: Reported on 07/06/2019 BLOOD-GLUCOSE METER KIT Glucose Meter of Choice - Kit* LANCETS Test blood sugar(s) 1 times d* BLOOD-GLUCOSE METER KIT Glucose Meter of Choice, insu* BLOOD SUGAR DIAGNOSTIC STRIPS Test blood sugar(s) 1x daily.* BD LUER-MARLIN SYRINGE 3 ML 23 X* USE FOR B-12 INJECTIONS EVERY * MULTIVITAMIN CAPSULE Take 1 capsule by mouth once * CHOLECALCIFEROL (VITAMIN D3) * Take 2 tablets by mouth once * MELATONIN 10 MG TABLET Take 10 mg by mouth daily at * ACYCLOVIR 5 % TOPICAL OINTMENT Apply 6 times daily for 7 day * LANCETS Use as instructed Problem List As Of Date 08/13/2019 Noted Resolved ROTATOR CUFF SYND NOS [M71.9, M67.919] 12/22/2002 Lateral epicondylitis of elbow [M77.10] 12/22/2002 0 JOINT PAIN-UP/ARM [M25.529] 02/02/2003 TRIGGER FINGER [M65.30] 03/30/2003 More... Follow-up examination following surgery [V67.0] 07/18/2004 1 Other tenosynovitis of hand and wrist [M65.849,*05/01/2005 1 Hyperlipidemia [E78.5] More... Iron deficiency anemia [D50.9] More... PERNICIOUS ANEMIA [D51.0] More... More... More... Diabetes mellitus type 2, controlled, without c*05/07/2005 More... Pain in soft tissues of limb [M79.609] 05/15/2005 04/18/2010 INSOMNIA NOS [G47.00] 07/25/2005 More... OSTEOPENIA [M89.9, M94.9] 10/23/2005 More... PEPTIC ULCER NOS [K27.9] 10/23/2005 Unspecified ventral hernia without mention of o*10/23/2005 1 DIVERTICULOSIS OF COLON W/O BLEED [K57.30] 10/23/2005 IRRITABLE COLON [K58.9] 11/28/2005 Abdominal pain, right upper quadrant [R10.11] 04/05/2006 RECURRENT UTI's [N39.0] 03/22/2008 04/18/2010 Fibromyalgia [M79.7] 06/29/2008 More... Abdominal pain, other specified site [R10.9] 06/29/200803/31 HEMORRHOIDS NOS [K64.9] 06/29/2008 DISLOC DIST RADIOULN-CLOSE [S63.016A] 07/13/2008 Abdominal pain, generalized [R10.84] 10/29/2008 04/18/2010 PULMONARY NODULE [R22.2] 01/17/2009 More... ATROPHIC VAGINITIS [N95.2] 01/17/2009 FELIPE (Generalized Anxiety Disorder) [F41.1] 03/20/2010 Cervicalgia [M54.2] 05/22/2010 Other physical therapy [[id number]] 06/21/2010 01/06/2016 Other specified disorder of bladder [596.8] 07/25/201001/05 Recurrent UTI [N39.0] 07/03/2011 01/06/2016 Polypharmacy [Z79.899] 07/03/2011 Abnormality of urethral meatus [Q64.70] 07/16/2011 Generalized abdominal pain [R10.84] 07/16/2011 Urinary retention [R33.9] 07/16/2011 Hypothyroidism [E03.9] 01/07/2012 Urgency of urination [R39.15] 03/19/2012 Urge incontinence [N39.41] 03/19/2012 Trigger index finger of right hand [M65.321] 12/25/2012 DJD (degenerative joint disease) [M19.90] Marital conflict [Z63.0] 03/15/2014 Vitamin D deficiency [E55.9] 07/13/2014 Attention deficit hyperactivity disorder (ADHD)*02/10/2015 Bilateral low back pain with right-sided sciati*06/02/2015 Right hip pain [M25.551] 06/02/2015 Recurrent major depressive disorder, in partial*09/26/2015 Pain in right hip [M25.551] 10/25/2015 Trochanteric bursitis of both hips [M70.61, M70*10/25/2015 Chronic bilateral low back pain without sciatic*10/25/2015 Trigger little finger of left hand [M65.352] 01/23/2016 Trigger ring finger of left hand [M65.342] 01/23/2016 Trigger middle finger of left hand [M65.332] 01/23/2016 Bilateral hip pain [M25.551, M25.552] 09/20/2016 Greater trochanteric bursitis of both hips [M70*09/20/2016 Status post bariatric surgery [Z98.84] 10/11/2016 Dysuria [R30.0] 11/21/2017 Nonrheumatic aortic valve stenosis [I35.0] 12/19/2018 HTN, goal below 130/80 [I10] 12/19/2018 Prescriptions ordered this encounter Disp Refills Start End LISINOPRIL 10 MG TABLET 90 t* 3 08/13/2019 Route: ORAL Sig: Take 1 tablet by mouth once daily. As directed ID# [id number] Medications Discontinued During This Encounter lisinopril (ZESTRIL, PRINIVIL) 10 mg* 05/11/2019 08/13/2019 Class: Med Update Route: ORAL Sig: Take 1 tablet by mouth once daily. As directed ID# [id number] Disc: Reason for discontinue is not on file. Encounter Status:Closed by JAKE BLACKMON on 08/13/19 progress on 2019-08 PROGRESS HNO ID: [id number] Normal 08-11-2019 [facility] Author: Juan Luis Santiago ([id number]) Service: ? Author Type: Psychologist Type: Progress Notes Filed: 08/11/2019 2:55 PM Note Text: [facility] Progress Note Sonny Romeo Sonny 08/11/2019 [id number] Provider: Juan Luis Oreilly, PHD CPT Code: 44245 Psychotherapy 38-52 minutes Time: Approximately 50 minutes was spent in therapy. Parties Present: Patient Patient Presentation/Concerns: Pt had successful back surgery and then a problem w her left leg... bursitis... which hasnt been resolved w shots so will contin ue to seek help mood: generally better they are considering a trip with the new and old dogs discussed coping at length and how she tends to get overly i nvolved in trying to get family members to do what she thinks is best Mental Status: Mood: variable Affect: mood-congruent Thoughts/Associations:goal directed Suicidal/Homicidal Ideation: None expressed or evidenced Other Observations: None Therapy Focus Self-care, Stress management, Mood/affect regulation, Family relationships and Self-esteem MEDICATIONS: Per medical record: Current Outpatient Medications Medication Sig - levothyroxine (SYNTHROID) 50 mcg tablet Take 1 tablet by m outh daily before breakfast. ID# [id number] - famotidine (PEPCID) 20 mg tablet Take 1 tablet by mouth tw ice daily. - cyclobenzaprine (FLEXERIL) 10 mg tablet Take 1 tablet by m outh daily at bedtime. ID# [id number] - atorvastatin (LIPITOR) 20 mg tablet Take 1 tablet by mouth once daily. - mirtazapine (REMERON) 15 mg tablet Take 1 tablet by mouth daily at bedtime. ID# [id number] - PARoxetine (PAXIL) 10 mg tablet Take 1 tablet by mouth onc e daily. ID# [id number] - HYDROcodone-acetaminophen (NORCO) 5-325 mg per tablet Take 0.5-1 tablets by mouth once daily as needed for up to 60 days. - perflutren lipid microspheres (DEFINITY) 1.1 mg/mL injecti on (to be provided with echo procedure) Inject 1.3 mL intravenously as directed. - furosemide (LASIX) 20 mg tablet Take 1 tablet by mouth onc e daily. as needed for leg swelling. - lisinopril (ZESTRIL, PRINIVIL) 10 mg tablet Take 1 tablet by mouth once daily. As directed ID# [id number] - calcium carbonate (CALCIUM 600 ORAL) Take by mouth. - Vitamin E, dl, acetate, (VITAMIN E) 400 unit capsule Take 400 Units by mouth once daily. - cyanocobalamin (VITAMIN B-12) 500 mcg tab tab(s) Take by m outh once daily. - Cranberry Extract 200 mg cap Take 800 mg by mouth. - blood sugar diagnostic (BLOOD GLUCOSE TEST) test strip Willie t blood sugar(s) 1 times daily. Dx: Type 2 DM - Controlled E11.9 Ins ulin: No - glimepiride (AMARYL) 1 mg tablet Take 1 tablet by mouth da eb with breakfast. ID# [id number] - PNV Cmb#44-Cowq-Ocook Acid ( COMPLETE) 14 mg iron- 400 mcg tab Take by mouth. Pt is taking 2 tablets daily - cyanocobalamin 1,000 mcg/mL soln 1 mL IM every 3 weeks - buPROPion XL (WELLBUTRIN XL) 150 mg 24 hr tablet Take 1 ta blet by mouth once daily. ID# [id number] - gabapentin (NEURONTIN) 300 mg capsule Take 2 capsules by m outh twice daily for 180 days. ID# [id number] - metFORMIN (GLUCOPHAGE) 850 mg tablet Take 1 tablet by mout h twice daily with meals. ID# [id number] - potassium chloride SR (MICRO-K) 10 mEq CR capsule Take 1 c apsule by mouth once daily. once daily for three days then once daily when taking furosemide. (Patient not taking: Reported on 07/06/2019 ) - Blood-Glucose Meter monitoring kit Glucose Meter of Choice - Kit - Dx: Type 2 DM - Controlled E11.9 Test blood sugar 1 time daily. - Lancets lancets Test blood sugar(s) 1 times daily. Dx: Typ e 2 DM - Controlled E11.9 Insulin: No - Blood-Glucose Meter monitoring kit Glucose Meter of Choice , insurance preferred - Kit - Dx: Type 2 DM - Controlled E11.9 - blood sugar diagnostic (BLOOD GLUCOSE TEST) test strip Willie t blood sugar(s) 1x daily. Dx: Controlled DM type 2. Insulin: No - BD LUER-MARLIN SYRINGE 3 mL 23 x 1 syrg USE FOR B-12 INJECTI ONS EVERY 3 WEEKS OR DIRECTED - Multivitamin capsule Take 1 capsule by mouth once daily. - cholecalciferol (VITAMIN D) 1,000 unit tab tablet Take 2 t ablets by mouth once daily. - melatonin 10 mg tab Take 10 mg by mouth daily at bedtime. - acyclovir (ZOVIRAX) 5 % ointment Apply 6 times daily for 7 days for cold sores - Lancets (ACCU-CHEK MULTICLIX LANCET) Misc lancets Use as i nstructed No current facility-administered medications for this visit. Psychiatric Medication Issues: see med record DIAGNOSIS: AXIS I: FELIPE ? ADHD, Combined Type Depression ?? AXIS II : Deferred ? AXIS III : See [facility] medical notes ? AXIS IV: Problems related to the social environment and Othe r psychosocial and environmental problems ? AXIS V: GAF: 60 -60-51 Moderate symptoms or moderate difficu lty in social, occupational or school functioning Treatment Modality/Interventions: Cognitive Behavioral Reassurance/Supportive Insight oriented Problem solving TREATMENT ASSESSMENT/PROGRESS: . Progressing satisfactorily. TREATMENT PLAN/GOALS: Continue in therapy focusing on self-c are, interpersonal relationships, assertiveness skills, stress ma nagement, affect management, anxiety management and self-esteem. Next appointment: as scheduled Juan Luis Oreilly, PHD obsolete on 2019-07 OBSOLETE Refill (INTMWS) Normal 07-31-[address] [facility] SONNY DENNIS ([id number]) 1940 [facility] Date Time Provider Department ([id number]) 07/31/19 MATI MONTENEGRO INTMWS During your visit today, we recorded the following informati on about you: Ally Tan Pss 07/31/2019 8:40 AM Signed Patient has been identified by name and date of : Yes Pending Prescriptions Disp Refills LEVOTHYROXINE 50 MCG TABLET 30 tablet 5 Sig: Take 1 tablet by mouth daily before breakfast. ID# [id number] ROSARIO: No RX INSTRUCTIONS: Patient aware RX escripted to mail away pharmacy. No n eed to notify patient. Ally Tan [facility] Verito Vasquez LPN 08/03/2019 2:46 PM Signed Patient has been identified by name and date of : Yes Patient phones for refill(s): Pending Prescriptions Disp Refills LEVOTHYROXINE 50 MCG TABLET 30 tablet 5 Sig: Take 1 tablet by mouth daily before breakfast. ID# [id number] ROSARIO: No Date of last office visit in primary care: 07/06/2019 6 month follow-up scheduled: 12/07/2019 Last 2 Encounter Wt Readings: Date: Wt: 07/06/2019 53.5 kg (118 lb) 06/23/2019 55.3 kg (122 lb) Previous labs/tests for medication: Thyroid: TSH (uU/mL) Date Value 05/07/2019 5.690 Verito Vasquez LPN Allergies As of Date: 07/31/2019 Noted Allergy Reaction MACROBID (NITROFURANTOIN MONOHYD/*01/10/2009 8 - GI Upset ADHESIVE TAPE (ROSINS) 03/03/2013 14 - Other: See Comments Comments: redness ATIVAN (LORAZEPAM) 12/27/2015 1 - Mental Status Change BENZODIAZEPINES 12/22/2002 1 - Mental Status Change Comments: ativan--made her loopy while in hospital CIPROFLOXACIN 04/27/2008 9 - Itching Comments: Oral Yeast Infection Thrush DEMEROL (MEPERIDINE HCL) 05/04/2005 LATEX 12/22/2002 2 - Rash Comments: Pt notes is a sensitivity, not allergy SULFA (SULFONAMIDE ANTIBIOTICS) 12/22/2002 14 - Other: See C omments Comments: Patient was treated for UTI in October 2011 after told nurse that reaction was just yeast infection (not vomiting as was previously listed) XANTHINES 12/22/2002 Comments: matti Date Reviewed: 07/06/2019 Reviewed by: Chelsea Farris LPN - Fully Assessed Reason for Visit: Refill Request [94] Order(s):levothyroxine (SYNTHROID) 50 mcg tabletTake 1 tablet by mouth daily before breakfast. ID# [id number]: 30 tabletRfl: 11 Prescriptions as of 07/31/2019 Sig: LEVOTHYROXINE 50 MCG TABLET Take 1 tablet by mouth daily * FAMOTIDINE 20 MG TABLET Take 1 tablet by mouth twice * CYCLOBENZAPRINE 10 MG TABLET Take 1 tablet by mouth daily * ATORVASTATIN 20 MG TABLET Take 1 tablet by mouth once d* MIRTAZAPINE 15 MG TABLET Take 1 tablet by mouth daily * PAROXETINE 10 MG TABLET Take 1 tablet by mouth once d* HYDROCODONE 5 MG-ACETAMINOPHE* Take 0.5-1 tablets by mouth o * PERFLUTREN LIPID MICROSPHERES* Inject 1.3 mL intravenously a * FUROSEMIDE 20 MG TABLET Take 1 tablet by mouth once d* LISINOPRIL 10 MG TABLET Take 1 tablet by mouth once d* CALCIUM 600 ORAL Take by mouth. VITAMIN E 400 UNIT CAPSULE Take 400 Units by mouth once * CYANOCOBALAMIN (VIT B-12) 500* Take by mouth once daily. CRANBERRY EXTRACT 200 MG CAPS* Take 800 mg by mouth. BLOOD SUGAR DIAGNOSTIC STRIPS Test blood sugar(s) 1 times d* GLIMEPIRIDE 1 MG TABLET Take 1 tablet by mouth daily * VITS,CALCIUM 21-IRON* Take by mouth. Pt is taking 2 * CYANOCOBALAMIN (VIT B-12) 1,0* 1 mL IM every 3 weeks BUPROPION XL 150 MG TAB Take 1 tablet by mouth once d* GABAPENTIN 300 MG CAPSULE Take 2 capsules by mouth twic* METFORMIN 850 MG TABLET Take 1 tablet by mouth twice * POTASSIUM CHLORIDE ER 10 MEQ * Take 1 capsule by mouth once * Patient not taking: Reported on 07/06/2019 BLOOD-GLUCOSE METER KIT Glucose Meter of Choice - Kit* LANCETS Test blood sugar(s) 1 times d* BLOOD-GLUCOSE METER KIT Glucose Meter of Choice, insu* BLOOD SUGAR DIAGNOSTIC STRIPS Test blood sugar(s) 1x daily.* BD LUER-MARLIN SYRINGE 3 ML 23 X* USE FOR B-12 INJECTIONS EVERY * MULTIVITAMIN CAPSULE Take 1 capsule by mouth once * CHOLECALCIFEROL (VITAMIN D3) * Take 2 tablets by mouth once * MELATONIN 10 MG TABLET Take 10 mg by mouth daily at * ACYCLOVIR 5 % TOPICAL OINTMENT Apply 6 times daily for 7 day * LANCETS Use as instructed Problem List As Of Date 07/31/2019 Noted Resolved ROTATOR CUFF SYND NOS [M71.9, M67.919] 12/22/2002 Lateral epicondylitis of elbow [M77.10] 12/22/2002 0 JOINT PAIN-UP/ARM [M25.529] 02/02/2003 TRIGGER FINGER [M65.30] 03/30/2003 More... Follow-up examination following surgery [V67.0] 07/18/2004 1 Other tenosynovitis of hand and wrist [M65.849,*05/01/2005 1 Hyperlipidemia [E78.5] More... Iron deficiency anemia [D50.9] More... PERNICIOUS ANEMIA [D51.0] More... More... More... Diabetes mellitus type 2, controlled, without c*05/07/2005 More... Pain in soft tissues of limb [M79.609] 05/15/2005 04/18/2010 INSOMNIA NOS [G47.00] 07/25/2005 More... OSTEOPENIA [M89.9, M94.9] 10/23/2005 More... PEPTIC ULCER NOS [K27.9] 10/23/2005 Unspecified ventral hernia without mention of o*10/23/2005 1 DIVERTICULOSIS OF COLON W/O BLEED [K57.30] 10/23/2005 IRRITABLE COLON [K58.9] 11/28/2005 Abdominal pain, right upper quadrant [R10.11] 04/05/2006 RECURRENT UTI's [N39.0] 03/22/2008 04/18/2010 Fibromyalgia [M79.7] 06/29/2008 More... Abdominal pain, other specified site [R10.9] 06/29/200803/31 HEMORRHOIDS NOS [K64.9] 06/29/2008 DISLOC DIST RADIOULN-CLOSE [S63.016A] 07/13/2008 Abdominal pain, generalized [R10.84] 10/29/2008 04/18/2010 PULMONARY NODULE [R22.2] 01/17/2009 More... ATROPHIC VAGINITIS [N95.2] 01/17/2009 FELIPE (Generalized Anxiety Disorder) [F41.1] 03/20/2010 Cervicalgia [M54.2] 05/22/2010 Other physical therapy [[id number]] 06/21/2010 01/06/2016 Other specified disorder of bladder [596.8] 07/25/201001/05 Recurrent UTI [N39.0] 07/03/2011 01/06/2016 Polypharmacy [Z79.899] 07/03/2011 Abnormality of urethral meatus [Q64.70] 07/16/2011 Generalized abdominal pain [R10.84] 07/16/2011 Urinary retention [R33.9] 07/16/2011 Hypothyroidism [E03.9] 01/07/2012 Urgency of urination [R39.15] 03/19/2012 Urge incontinence [N39.41] 03/19/2012 Trigger index finger of right hand [M65.321] 12/25/2012 DJD (degenerative joint disease) [M19.90] Marital conflict [Z63.0] 03/15/2014 Vitamin D deficiency [E55.9] 07/13/2014 Attention deficit hyperactivity disorder (ADHD)*02/10/2015 Bilateral low back pain with right-sided sciati*06/02/2015 Right hip pain [M25.551] 06/02/2015 Recurrent major depressive disorder, in partial*09/26/2015 Pain in right hip [M25.551] 10/25/2015 Trochanteric bursitis of both hips [M70.61, M70*10/25/2015 Chronic bilateral low back pain without sciatic*10/25/2015 Trigger little finger of left hand [M65.352] 01/23/2016 Trigger ring finger of left hand [M65.342] 01/23/2016 Trigger middle finger of left hand [M65.332] 01/23/2016 Bilateral hip pain [M25.551, M25.552] 09/20/2016 Greater trochanteric bursitis of both hips [M70*09/20/2016 Status post bariatric surgery [Z98.84] 10/11/2016 Dysuria [R30.0] 11/21/2017 Nonrheumatic aortic valve stenosis [I35.0] 12/19/2018 HTN, goal below 130/80 [I10] 12/19/2018 Prescriptions ordered this encounter Disp Refills Start End LEVOTHYROXINE 50 MCG TABLET 30 t* 11 08/03/2019 Route: ORAL Sig: Take 1 tablet by mouth daily before breakfast. ID# [id number] Medications Discontinued During This Encounter levothyroxine (SYNTHROID) 50 mcg tab* 30 t* 5 05/12/201908/03 Route: ORAL Sig: Take 1 tablet by mouth daily before breakfast. ID# [id number] Disc: Reason for discontinue is not on file. Encounter Status:Closed by JAKE BLACKMON on 08/03/19 obsolete on 2019-07 OBSOLETE Refill (INTMWS) Normal 07-23-[address] [facility] SONNY DENNIS ([id number]) 1940 [facility] Date Time Provider Department ([id number]) 07/23/19 MATI MONTENEGRO INTMWS During your visit today, we recorded the following informati on about you: Denise Traore Pss 07/23/2019 4:26 PM Signed Patient has been identified by name and date of : Yes famotidine (PEPCID) 20 mg tablet (Discontinued) 60 tablet 1 RX INSTRUCTIONS: Patient aware RX will be sent to pharmacy. No need to notify patient. Denise Traore Pss Jake Fish APRN.LAB ASST 07/24/2019 9:55 AM Signed Please verify if taking, noted to be discontinued by PCP . Ivis Montelongo NITRATOR OPERATOR 07/24/2019 11:16 AM Signed Called pt and she says she has developed heartbu rn. This is why she is asking for a refill. Allergies As of Date: 07/23/2019 Noted Allergy Reaction MACROBID (NITROFURANTOIN MONOHYD/*01/10/2009 8 - GI Upset ADHESIVE TAPE (ROSINS) 03/03/2013 14 - Other: See Comments Comments: redness ATIVAN (LORAZEPAM) 12/27/2015 1 - Mental Status Change BENZODIAZEPINES 12/22/2002 1 - Mental Status Change Comments: ativan--made her loopy while in hospital CIPROFLOXACIN 04/27/2008 9 - Itching Comments: Oral Yeast Infection Thrush DEMEROL (MEPERIDINE HCL) 05/04/2005 LATEX 12/22/2002 2 - Rash Comments: Pt notes is a sensitivity, not allergy SULFA (SULFONAMIDE ANTIBIOTICS) 12/22/2002 14 - Other: See C omments Comments: Patient was treated for UTI in October 2011 after told nurse that reaction was just yeast infection (not vomiting as was previously listed) XANTHINES 12/22/2002 Comments: matti Date Reviewed: 07/06/2019 Reviewed by: Chelsea Farris LPN - Fully Assessed Reason for Visit: Refill Request [94] Primary Visit Diagnosis:Gastroesophageal reflux disease, esophagitis presence not specified [K21.9] Order(s):famotidine (PEPCID) 20 mg tabletTake 1 tablet by [facility] twice daily.Disp: 60 tabletRfl: 2 Prescriptions as of 07/23/2019 Sig: FAMOTIDINE 20 MG TABLET Take 1 tablet by mouth twice * CYCLOBENZAPRINE 10 MG TABLET Take 1 tablet by mouth daily * ATORVASTATIN 20 MG TABLET Take 1 tablet by mouth once d* MIRTAZAPINE 15 MG TABLET Take 1 tablet by mouth daily * PAROXETINE 10 MG TABLET Take 1 tablet by mouth once d* HYDROCODONE 5 MG-ACETAMINOPHE* Take 0.5-1 tablets by mouth o * PERFLUTREN LIPID MICROSPHERES* Inject 1.3 mL intravenously a * FUROSEMIDE 20 MG TABLET Take 1 tablet by mouth once d* LEVOTHYROXINE 50 MCG TABLET Take 1 tablet by mouth daily * LISINOPRIL 10 MG TABLET Take 1 tablet by mouth once d* CALCIUM 600 ORAL Take by mouth. VITAMIN E 400 UNIT CAPSULE Take 400 Units by mouth once * CYANOCOBALAMIN (VIT B-12) 500* Take by mouth once daily. CRANBERRY EXTRACT 200 MG CAPS* Take 800 mg by mouth. BLOOD SUGAR DIAGNOSTIC STRIPS Test blood sugar(s) 1 times d* GLIMEPIRIDE 1 MG TABLET Take 1 tablet by mouth daily * VITS,CALCIUM 21-IRON* Take by mouth. Pt is taking 2 * CYANOCOBALAMIN (VIT B-12) 1,0* 1 mL IM every 3 weeks BUPROPION XL 150 MG TAB Take 1 tablet by mouth once d* GABAPENTIN 300 MG CAPSULE Take 2 capsules by mouth twic* METFORMIN 850 MG TABLET Take 1 tablet by mouth twice * POTASSIUM CHLORIDE ER 10 MEQ * Take 1 capsule by mouth once * Patient not taking: Reported on 07/06/2019 BLOOD-GLUCOSE METER KIT Glucose Meter of Choice - Kit* LANCETS Test blood sugar(s) 1 times d* BLOOD-GLUCOSE METER KIT Glucose Meter of Choice, insu* BLOOD SUGAR DIAGNOSTIC STRIPS Test blood sugar(s) 1x daily.* BD LUER-MARLIN SYRINGE 3 ML 23 X* USE FOR B-12 INJECTIONS EVERY * MULTIVITAMIN CAPSULE Take 1 capsule by mouth once * CHOLECALCIFEROL (VITAMIN D3) * Take 2 tablets by mouth once * MELATONIN 10 MG TABLET Take 10 mg by mouth daily at * ACYCLOVIR 5 % TOPICAL OINTMENT Apply 6 times daily for 7 day * LANCETS Use as instructed Problem List As Of Date 07/23/2019 Noted Resolved ROTATOR CUFF SYND NOS [M71.9, M67.919] 12/22/2002 Lateral epicondylitis of elbow [M77.10] 12/22/2002 0 JOINT PAIN-UP/ARM [M25.529] 02/02/2003 TRIGGER FINGER [M65.30] 03/30/2003 More... Follow-up examination following surgery [V67.0] 07/18/2004 1 Other tenosynovitis of hand and wrist [M65.849,*05/01/2005 1 Hyperlipidemia [E78.5] More... Iron deficiency anemia [D50.9] More... PERNICIOUS ANEMIA [D51.0] More... More... More... Diabetes mellitus type 2, controlled, without c*05/07/2005 More... Pain in soft tissues of limb [M79.609] 05/15/2005 04/18/2010 INSOMNIA NOS [G47.00] 07/25/2005 More... OSTEOPENIA [M89.9, M94.9] 10/23/2005 More... PEPTIC ULCER NOS [K27.9] 10/23/2005 Unspecified ventral hernia without mention of o*10/23/2005 1 DIVERTICULOSIS OF COLON W/O BLEED [K57.30] 10/23/2005 IRRITABLE COLON [K58.9] 11/28/2005 Abdominal pain, right upper quadrant [R10.11] 04/05/2006 RECURRENT UTI's [N39.0] 03/22/2008 04/18/2010 Fibromyalgia [M79.7] 06/29/2008 More... Abdominal pain, other specified site [R10.9] 06/29/200803/31 HEMORRHOIDS NOS [K64.9] 06/29/2008 DISLOC DIST RADIOULN-CLOSE [S63.016A] 07/13/2008 Abdominal pain, generalized [R10.84] 10/29/2008 04/18/2010 PULMONARY NODULE [R22.2] 01/17/2009 More... ATROPHIC VAGINITIS [N95.2] 01/17/2009 FELIPE (Generalized Anxiety Disorder) [F41.1] 03/20/2010 Cervicalgia [M54.2] 05/22/2010 Other physical therapy [[id number]] 06/21/2010 01/06/2016 Other specified disorder of bladder [596.8] 07/25/201001/05 Recurrent UTI [N39.0] 07/03/2011 01/06/2016 Polypharmacy [Z79.899] 07/03/2011 Abnormality of urethral meatus [Q64.70] 07/16/2011 Generalized abdominal pain [R10.84] 07/16/2011 Urinary retention [R33.9] 07/16/2011 Hypothyroidism [E03.9] 01/07/2012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 Take 1 tablet by mouth once daily. As directed ID# [id number] calcium carbonate (CALCIUM 600 ORAL) Take by mouth. Vitamin E, dl, acetate, (VITAMIN E) 400 unit capsule Take 40 0 Units by mouth once daily. cyanocobalamin (VITAMIN B-12) 500 mcg tab tab(s) Take by angela th once daily. Cranberry Extract 200 mg cap Take 800 mg by mouth. HYDROcodone-acetaminophen (NORCO) 5-325 mg per tablet Take 0 .5-1 tablets by mouth twice daily as needed for up to 60 days. famotidine (PEPCID) 20 mg tablet Take 1 tablet by mouth twic e daily. blood sugar diagnostic (BLOOD GLUCOSE TEST) test strip Test blood sugar(s) 1 times daily. Dx: Type 2 DM - Controlled E11.9 Insulin: No glimepiride (AMARYL) 1 mg tablet Take 1 tablet by mouth miriam y with breakfast. ID# [id number] PNV Cmb#[id number] Acid ( COMPLETE) 14 mg iron- 4 00 mcg tab Take by mouth. Pt is taking 2 tablets daily cyanocobalamin 1,000 mcg/mL soln 1 mL IM every 3 weeks buPROPion XL (WELLBUTRIN XL) 150 mg 24 hr tablet Take 1 tabl et by mouth once daily. ID# [id number] atorvastatin (LIPITOR) 20 mg tablet Take 1 tablet by mouth o nce daily. metFORMIN (GLUCOPHAGE) 850 mg tablet Take 1 tablet by mouth twice daily with meals. ID# [id number] cyclobenzaprine (FLEXERIL) 10 mg tablet Take 1 tablet by angela th daily at bedtime. ID# [id number] mirtazapine (REMERON) 15 mg tablet Take 1 tablet by mouth da eb at bedtime. ID# [id number] potassium chloride SR (MICRO-K) 10 mEq CR capsule Take 1 cap emily by mouth once daily. once daily for three days then once daily when t aking furosemide. Blood-Glucose Meter monitoring kit Glucose Meter of Choice - Kit - Dx: Type 2 DM - Controlled E11.9 Test blood sugar 1 time daily. Lancets lancets Test blood sugar(s) 1 times daily. Dx: Type 2 DM - Controlled E11.9 Insulin: No Blood-Glucose Meter monitoring kit Glucose Meter of Choice, insurance preferred - Kit - Dx: Type 2 DM - Controlled E11.9 blood sugar diagnostic (BLOOD GLUCOSE TEST) test strip Test blood sugar(s) 1x daily. Dx: Controlled DM type 2. Insulin: No PARoxetine (PAXIL) 10 mg tablet Take 1 tablet by mouth once daily. ID# [id number] BD LUER-MARLIN SYRINGE 3 mL 23 x 1 syrg USE FOR B-12 INJECTION S EVERY 3 WEEKS OR DIRECTED Multivitamin capsule Take 1 capsule by mouth once daily. cholecalciferol (VITAMIN D) 1,000 unit tab tablet Take 2 tab lets by mouth once daily. melatonin 10 mg tab Take 10 mg by mouth daily at bedtime. acyclovir (ZOVIRAX) 5 % ointment Apply 6 times daily for 7 d ays for cold sores Lancets (ACCU-CHEK MULTICLIX LANCET) Misc lancets Use as ins tructed gabapentin (NEURONTIN) 300 mg capsule Take 2 capsules by angela th twice daily for 180 days. ID# [id number] Clara Iraheta, DO, FACC, FACOI Clinical and Preventive Cardiology [facility] cnov on 2019-06-09 CNOV Office Visit ([facility]ARD[facility]) Normal 06-09-20 19 [place] SONNY Lopez ([id number]) 1940 [facility] Time Provider Department ([id number]) 06/09/19 1:20 PM CLARA IRAHETA During your visit today, we recorded the following informati on about you: Pulse Blood pressure Weight Height 98/minute 98/56 55.9 kg 1.562 m Clara Iraheta DO, 06/09/2019 1:54 PM Signed [facility] OUT[facility]IENT VISIT DATE June 09, 2019 PRIMARY CARE PHYSICIAN: Mati Montenegro MD [address] [place] [address] HISTORY OF PRESENT ILLNESS: Ms. Dennis is a 79 year old female. The patient returns f or follow up secondary history of moderate aortic stenosis. Additional hi story includes hypertension, hyperlipidemia, diabetes mellitus, degenerat karen disc disease, pernicious anemia and recent diagnosis of ADD. The patient d enies chest discomfort, dyspnea, orthopnea, paroxysmal nocturnal dyspnea , palpations, near-syncope or syncope. Her main complaint is groin disco mfort on the left and left leg discomfort which occurred shortly after her lei k surgery. PLAN AND RECOMMENDATIONS: The patient appears stable without appar ent symptoms that would suggest angina or cardiac decompensation. She remains nervous g iven her ADHD. Her heart rate and blood pressure appear reasonably well controlled. Recent cholesterol profile was favorable. We will reevaluate her aortic stenosi s prior to her next visit in one year's time. We have made no additio ns or changes. Dietary and lifestyle modification were reemphasized. Vitals: BP 98/56 (BP Site: Left Arm, BP Position: Sitting, BP Cuff Size: Large Adult) Pulse 98 Ht 156.2 cm (5' 1.5) Wt 55.9 kg (123 lb 4.8 oz) SpO2 100% BMI 22.92 kg/m? Physical Exam Constitutional: Appearance: She is well-developed. HENT: Head: Normocephalic and atraumatic. Eyes: Pupils: Pupils are equal, round, and reactive to light. Neck: Musculoskeletal: Normal range of motion and neck supple. Thyroid: No thyromegaly. Vascular: No JVD. Cardiovascular: Rate and Rhythm: Normal rate and regular rhythm. Heart sounds: Murmur present. Crescendo decrescendo systolic murmur present with a grade of 2/6. No friction rub. No gallop. Pulmonary: Effort: Pulmonary effort is normal. No respiratory distress. Breath sounds: Normal breath sounds. No wheezing or rales. Abdominal: General: Bowel sounds are normal. Palpations: Abdomen is soft. Musculoskeletal: Normal range of motion. Skin: General: Skin is warm and dry. Coloration: Skin is not pale. Neurological: Mental Status: She is alert and oriented to person, place, a nd time. Cranial Nerves: No cranial nerve deficit. Psychiatric: Behavior: Behavior normal. Thought Content: Thought content normal. Judgment: Judgment normal. Review of Systems Constitutional: Negative for activity change and fatigue. HENT: Negative for ear pain and facial swelling. Eyes: Negative for pain and discharge. Respiratory: Negative for chest tightness and shortness of b reath. Cardiovascular: Negative for chest pain, palpitations and le g swelling. Gastrointestinal: Negative for abdominal pain, blood in stoo l, nausea and vomiting. Endocrine: Negative for cold intolerance and heat intoleranc e. Genitourinary: Negative for frequency and hematuria. Musculoskeletal: Negative for arthralgias and gait problem. Skin: Negative for color change, pallor and rash. Allergic/Immunologic: Negative for immunocompromised state. Neurological: Negative for dizziness, sy ncope, light-headedness and headaches. Hematological: Negative for adenopathy. Does not bruise/blee d easily. Psychiatric/Behavioral: Negative for confusion. The patient is not nervous/anxious. PAST MEDICAL HISTORY Diagnosis Date - Abdominal pain, generalized - Abdominal pain, right upper quadrant - Abdominal pain, unspecified site - Anxiety state, unspecified - Depressive disorder, not elsewhere classified - Disorder of bone and cartilage, unspecified osteopenia - Diverticulosis of colon (without mention of hemorrhage) - DJD (degenerative joint disease) - Essential hypertension 01/06/2016 - Fibromyalgia - Iron deficiency anemia, unspecified - Other and unspecified hyperlipidemia - Pernicious anemia - Type II or unspecified type diabetes mellitus without ment ion of complication, not stated as uncontrolled dx'd early 30s PAST SURGICAL HISTORY Procedure Laterality Date - COLONOSCOP W/ OR W/O BRSH SPEC 01/29 Colonoscopy - COLONOSCOP W/ OR W/O BRSH SPEC 01/29, 04/05/06 - COLONOSCOPY W/BX 10/29/08 Diverticulosis - COLONOSCOPY W/BX 07/18/11 Repeat in - EGD W/O BRSH SPECIMEN W/BX 10/02, 04/05/06 - EGD W/O BRSH SPECIMEN W/BX 10/29/08 Patent gastrojejunostomy - EGD W/O OR W/BRUSH/WASH EGD - HYSTEROSCOPY, DIAGNOSTIC (SEPARATE 1997 Hysteroscopy - INCISE FINGER TENDON SHEATH 02/20/2013 Right index trigger finger release - LIGATE FALLOPIAN TUBE Tubal ligation - PAST SURGICAL HISTORY OF vagotomy - PAST SURGICAL HISTORY OF 2005 Right thumb and middle trigger finger release - PAST SURGICAL HISTORY OF Right shoulder - PAST SURGICAL HISTORY OF 1997 Right elbow - [facility] - PAST SURGICAL HISTORY OF Left 01-27-16 left middle, ring and small trigger finger releases - REMOVAL GALLBLADDER 1974 Cholecystectomy - REMV STOM,PART,DISTAL,GASTRODUOD 07/04/2000 Gastrectomy, partial, X-2 - REPAIR INCISIONAL HERNIA,REDUCIBLE 06/25/2001 Hernia repair, incisional - WRIST ARTHROSCOP,EXCIS TRIANG CART 2008 Right wrist Social History Tobacco Use - Smoking status: Former Smoker Packs/day: 1.00 Years: 5.00 Pack years: 5.00 Types: Cigarettes Last attempt to quit: 01/05/1971 Years since quittin.4 - Smokeless tobacco: Never Used Substance Use Topics - Alcohol use: Yes Comment: Rarely - Drug use: No FAMILY HISTORY Problem Relation Age of Onset - Stroke Mother - Hypertension Mother - Heart Mother - Stroke Father - Hypertension Father - Heart Brother - other (Lung Cancer) Brother mesothelioma - Heart Sister - other (Parkinson's Disease) Sister - Cancer Daughter melanoma - Ovarian cancer Sister diagnosed at Stage IV - Arthritis Sister Through out the whole family ALLERGIES Allergen Reactions - Macrobid [Nitrofura* GI Upset - Adhesive Tape (Lisa* Other: See Comments redness - Ativan [Lorazepam] Mental Status Change - Benzodiazepines Mental Status Change ativan--made her loopy while in hospital - Ciprofloxacin Itching Oral Yeast Infection Thrush - Demerol [Meperidine* - Latex Rash Pt notes is a sensitivity, not allergy - Sulfa (Sulfonamide * Other: See Comments Patient was treated for UTI in October 2011 after told nurse gregorio t reaction was just yeast infection (not vomiting as was previously listed) - Xanthines darvon CURRENT MEDICATIONS: furosemide (LASIX) 20 mg tablet Take 1 tablet by mouth once daily. as needed for leg swelling. levothyroxine (SYNTHROID) 50 mcg tablet Take 1 tablet by m outh daily before breakfast. ID# [id number] lisinopril (ZESTRIL, PRINIVIL) 10 mg tab let Take 1 tablet by mouth once daily. As directed ID# [id number] calcium carbonate (CALCIUM 600 ORAL) Take by mouth. Vitamin E, dl, acetate, (VITAMIN E) 400 unit capsule T génesis 400 Units by mouth once daily. cyanocobalamin (VITAMIN B-12) 500 mcg tab tab(s) Take by angela once daily. Cranberry Extract 200 mg cap Take 800 mg by mouth. HYDROcodone-acetaminophen (NORCO) 5-325 mg per tablet Take 0.5-1 tablets by mouth twice daily as needed for up to 60 days. famotidine (PEPCID) 20 mg tablet Take 1 tablet by mouth twic e daily. blood sugar diagnostic (BLOOD GLUCOSE TEST) test strip Test blood sugar(s) 1 times daily. Dx: Type 2 DM - Controlled E11.9 Insulin: No glimepiride (AMARYL) 1 mg tablet Take 1 tablet b y mouth daily with breakfast. ID# [id number] PNV Cmb#[id number] Acid ( COM PLETE) 14 mg iron- 400 mcg tab Take by mouth. Pt is taking 2 tablets daily cyanocobalamin 1,000 mcg/mL soln 1 mL IM every 3 weeks buPROPion XL (WELLBUTRIN XL) 150 mg 24 hr tablet Take 1 tablet by mouth once daily. ID# [id number] atorvastatin (LIPITOR) 20 mg tablet Take 1 tablet by mouth o nce daily. metFORMIN (GLUCOPHAGE) 850 mg tablet Take 1 tablet by mouth twice daily with meals. ID# [id number] cyclobenzaprine (FLEXERIL) 10 mg tablet Take 1 tablet by angela th daily at bedtime. ID# [id number] mirtazapine (REMERON) 15 mg tablet Take 1 tablet by mouth daily at bedtime. ID# [id number] potassium chloride SR (MICRO-K) 10 mEq C R capsule Take 1 capsule by mouth once daily. once daily for three days then once daily when taking furosemide. Blood-Glucose Meter monitoring kit Glucose Meter of Choice - Kit - Dx: Type 2 DM - Controlled E11.9 Test blood sugar 1 time daily. Lancets lancets Test blood sugar(s) 1 times miriam y. Dx: Type 2 DM - Controlled E11.9 Insulin: No Blood-Glucose Meter monitori ng kit Glucose Meter of Choice, insurance preferred - Kit - Dx: Type 2 DM - Controlled E11.9 blood sugar diagnostic (BLOOD GLUCOSE TEST) test strip Test blood sugar(s) 1x daily. Dx: Controlled DM type 2. Insulin: No PARoxetine (PAXIL) 10 mg tab let Take 1 tablet by mouth once daily. ID# [id number] BD LUER-MARLIN SYRINGE 3 mL 23 x 1 syrg US E FOR B-12 INJECTIONS EVERY 3 WEEKS OR DIRECTED Multivitamin capsule Take 1 capsule by mouth once daily. cholecalciferol (VITAMIN D) 1,000 unit t ab tablet Take 2 tablets by mouth once daily. melatonin 10 mg tab Take 10 mg by mouth daily at bedtime. acyclovir (ZOVIRAX) 5 % ointment Apply 6 times daily for 7 days for cold sores Lancets (ACCU-CHEK MULTICLIX LANCET) Misc lancets Use as ins tructed gabapentin (NEURONTIN) 300 mg capsule Ta ke 2 capsules by mouth twice daily for 180 days. ID# [id number] Clara Iraheta DO, FACC, FAC Clinical and Preventive Cardiology [facility] Referring Provider: CLARA IRAHETA [[id number]] Allergies As of Date: 06/09/2019 Noted Allergy Reaction MACROBID (NITROFURANTOIN MONOHYD/*01/10/2009 8 - GI Upset ADHESIVE TAPE (ROSINS) 03/03/2013 14 - Other: See Comments Comments: redness ATIVAN (LORAZEPAM) 12/27/2015 1 - Mental Status Change BENZODIAZEPINES 12/22/2002 1 - Mental Status Change Comments: ativan--made her loopy while in hospital CIPROFLOXACIN 04/27/2008 9 - Itching Comments: Oral Yeast Infection Thrush DEMEROL (MEPERIDINE HCL) 05/04/2005 LATEX 12/22/2002 2 - Rash Comments: Pt notes is a sensitivity, not allergy SULFA (SULFONAMIDE ANTIBIOTICS) 12/22/2002 14 - Other: See C omments Comments: Patient was treated for UTI in October 2011 after told nurse that reaction was just yeast infection (not vomiting as was previously listed) XANTHINES 12/22/2002 Comments: darvon Date Reviewed: 06/09/2019 Reviewed by: Clara Iraheta DO - Fully Assessed Reason for Visit: Established Patient [175] Primary Visit Diagnosis:Nonrheumatic aortic valve stenosis [ I35.0] Other Visit Diagnoses:HTN, goal below 130/80 [I10] Mixed hyperlipidemia [E78.2] Order(s):ECHO [[id number]] Order #: [id number]: 1 FUTURE perflutren lipid microspheres (DEFINTego) 1.1 mg/mL injection (to be provided with echo procedure)Inject 1.3 mL intravenously as directed.Disp: 1.3 mLRfl: 0 Prescriptions as of 06/09/2019 Sig: FUROSEMIDE 20 MG TABLET Take 1 tablet by mouth once d* LEVOTHYROXINE 50 MCG TABLET Take 1 tablet by mouth daily * LISINOPRIL 10 MG TABLET Take 1 tablet by mouth once d* CALCIUM 600 ORAL Take by mouth. VITAMIN E 400 UNIT CAPSULE Take 400 Units by mouth once * CYANOCOBALAMIN (VIT B-12) 500* Take by mouth once daily. CRANBERRY EXTRACT 200 MG CAPS* Take 800 mg by mouth. HYDROCODONE 5 MG-ACETAMINOPHE* Take 0.5-1 tablets by mouth t * FAMOTIDINE 20 MG TABLET Take 1 tablet by mouth twice * BLOOD SUGAR DIAGNOSTIC STRIPS Test blood sugar(s) 1 times d* GLIMEPIRIDE 1 MG TABLET Take 1 tablet by mouth daily * VITS,CALCIUM 21-IRON* Take by mouth. Pt is taking 2 * CYANOCOBALAMIN (VIT B-12) 1,0* 1 mL IM every 3 weeks BUPROPION XL 150 MG TAB Take 1 tablet by mouth once d* ATORVASTATIN 20 MG TABLET Take 1 tablet by mouth once d* METFORMIN 850 MG TABLET Take 1 tablet by mouth twice * CYCLOBENZAPRINE 10 MG TABLET Take 1 tablet by mouth daily * MIRTAZAPINE 15 MG TABLET Take 1 tablet by mouth daily * POTASSIUM CHLORIDE ER 10 MEQ * Take 1 capsule by mouth once * BLOOD-GLUCOSE METER KIT Glucose Meter of Choice - Kit* LANCETS Test blood sugar(s) 1 times d* BLOOD-GLUCOSE METER KIT Glucose Meter of Choice, insu* BLOOD SUGAR DIAGNOSTIC STRIPS Test blood sugar(s) 1x daily.* PAROXETINE 10 MG TABLET Take 1 tablet by mouth once d* BD LUER-MARLIN SYRINGE 3 ML 23 X* USE FOR B-12 INJECTIONS EVERY * MULTIVITAMIN CAPSULE Take 1 capsule by mouth once * CHOLECALCIFEROL (VITAMIN D3) * Take 2 tablets by mouth once * MELATONIN 10 MG TABLET Take 10 mg by mouth daily at * ACYCLOVIR 5 % TOPICAL OINTMENT Apply 6 times daily for 7 day * LANCETS Use as instructed PERFLUTREN LIPID MICROSPHERES* Inject 1.3 mL intravenously a * GABAPENTIN 300 MG CAPSULE Take 2 capsules by mouth twic* Problem List As Of Date 06/09/2019 Noted Resolved ROTATOR CUFF SYND NOS [M71.9, M67.919] 12/22/2002 Lateral epicondylitis of elbow [M77.10] 12/22/2002 0 JOINT PAIN-UP/ARM [M25.529] 02/02/2003 TRIGGER FINGER [M65.30] 03/30/2003 More... Follow-up examination following surgery [V67.0] 07/18/2004 1 Other tenosynovitis of hand and wrist [M65.849,*05/01/2005 1 Hyperlipidemia [E78.5] More... Iron deficiency anemia [D50.9] More... PERNICIOUS ANEMIA [D51.0] More... More... More... Diabetes mellitus type 2, controlled, without c*05/07/2005 More... Pain in soft tissues of limb [M79.609] 05/15/2005 04/18/2010 INSOMNIA NOS [G47.00] 07/25/2005 More... OSTEOPENIA [M89.9, M94.9] 10/23/2005 More... PEPTIC ULCER NOS [K27.9] 10/23/2005 Unspecified ventral hernia without mention of o*10/23/2005 1 DIVERTICULOSIS OF COLON W/O BLEED [K57.30] 10/23/2005 IRRITABLE COLON [K58.9] 11/28/2005 Abdominal pain, right upper quadrant [R10.11] 04/05/2006 RECURRENT UTI's [N39.0] 03/22/2008 04/18/2010 Fibromyalgia [M79.7] 06/29/2008 More... Abdominal pain, other specified site [R10.9] 06/29/200803/31 HEMORRHOIDS NOS [K64.9] 06/29/2008 DISLOC DIST RADIOULN-CLOSE [S63.016A] 07/13/2008 Abdominal pain, generalized [R10.84] 10/29/2008 04/18/2010 PULMONARY NODULE [R22.2] 01/17/2009 More... ATROPHIC VAGINITIS [N95.2] 01/17/2009 FELIPE (Generalized Anxiety Disorder) [F41.1] 03/20/2010 Cervicalgia [M54.2] 05/22/2010 Other physical therapy [XCM6609] 06/21/2010 01/06/2016 Other specified disorder of bladder [596.8] 07/25/201001/05 Recurrent UTI [N39.0] 07/03/2011 01/06/2016 Polypharmacy [Z79.899] 07/03/2011 Abnormality of urethral meatus [Q64.70] 07/16/2011 Generalized abdominal pain [R10.84] 07/16/2011 Urinary retention [R33.9] 07/16/2011 Hypothyroidism [E03.9] 01/07/2012 Urgency of urination [R39.15] 03/19/2012 Urge incontinence [N39.41] 03/19/2012 Trigger index finger of right hand [M65.321] 12/25/2012 DJD (degenerative joint disease) [M19.90] Marital conflict [Z63.0] 03/15/2014 Vitamin D deficiency [E55.9] 07/13/2014 Attention deficit hyperactivity disorder (ADHD)*02/10/2015 Bilateral low back pain with right-sided sciati*06/02/2015 Right hip pain [M25.551] 06/02/2015 Recurrent major depressive disorder, in partial*09/26/2015 Pain in right hip [M25.551] 10/25/2015 Trochanteric bursitis of both hips [M70.61, M70*10/25/2015 Chronic bilateral low back pain without sciatic*10/25/2015 Trigger little finger of left hand [M65.352] 01/23/2016 Trigger ring finger of left hand [M65.342] 01/23/2016 Trigger middle finger of left hand [M65.332] 01/23/2016 Bilateral hip pain [M25.551, M25.552] 09/20/2016 Greater trochanteric bursitis of both hips [M70*09/20/2016 Status post bariatric surgery [Z98.84] 10/11/2016 Dysuria [R30.0] 11/21/2017 Nonrheumatic aortic valve stenosis [I35.0] 12/19/2018 HTN, goal below 130/80 [I10] 12/19/2018 Prescriptions ordered this encounter Disp Refills Start End PERFLUTREN LIPID MICROSPHERES 1.1 MG* 1.3 * 0 06/09/201903/2020 Class: In Office Route: INTRAVENOUS Sig: Inject 1.3 mL intravenously as directed. Disposition: Return in about 1 year (around 06/09/2020), or if symptoms worsen or fail to improve, for Follow-up. Follow-up and Disposition History Recorded Letter Text Encounter Status:Closed by CLARA IRAHETA on 06/09/19 madi on [facility] Normal 06-05-[address] [place] [facility] SONNY DENNIS ([id number]) 1940 F [place] Date Time Provider Department ([id number]) 06/05/19 [facility] MONTENEGROP[facility] During your visit today, we recorded the following informati on about you: Teresa Irwin LPN, RACHEL 06/05/2019 8:38 AM Signed ----- Message from Michelle (Paulino) Podlogar sent at 06/04/2019 2:05 PM EST ----- Please call and let patient know her x-ray shows arthritis w ith calcium deposits. Recommend using the tylenol an s some heat. If not getting any better let me know. Thanks, Michelle Podlogar, MATERIAL CHASER.PAULINO Irwin LPN, RACHEL 06/05/2019 8:47 AM Signed Message sent via my chart. Jovita Paul RAMOS 06/06/2019 8:49 AM Signed Pt called, results given. Allergies As of Date: 06/05/2019 Noted Allergy Reaction MACROBID (NITROFURANTOIN MONOHYD/*01/10/2009 8 - GI Upset ADHESIVE TAPE (ROSINS) 03/03/2013 14 - Other: See Comments Comments: redness ATIVAN (LORAZEPAM) 12/27/2015 1 - Mental Status Change BENZODIAZEPINES 12/22/2002 1 - Mental Status Change Comments: ativan--made her loopy while in hospital CIPROFLOXACIN 04/27/2008 9 - Itching Comments: Oral Yeast Infection Thrush DEMEROL (MEPERIDINE HCL) 05/04/2005 LATEX 12/22/2002 2 - Rash Comments: Pt notes is a sensitivity, not allergy SULFA (SULFONAMIDE ANTIBIOTICS) 12/22/2002 14 - Other: See C omments Comments: Patient was treated for UTI in October 2011 after told nurse that reaction was just yeast infection (not vomiting as was previously listed) XANTHINES 12/22/2002 Comments: monaevon Date Reviewed: 06/04/2019 Reviewed by: Teresa Romeo (Rachel) RACHEL Irwin - Fully Assessed Reason for Visit: Results [95] Prescriptions as of 06/05/2019 Sig: FUROSEMIDE 20 MG TABLET Take 1 tablet by mouth once d* LEVOTHYROXINE 50 MCG TABLET Take 1 tablet by mouth daily * LISINOPRIL 10 MG TABLET Take 1 tablet by mouth once d* CALCIUM 600 ORAL Take by mouth. VITAMIN E 400 UNIT CAPSULE Take 400 Units by mouth once * CYANOCOBALAMIN (VIT B-12) 500* Take by mouth once daily. CRANBERRY EXTRACT 200 MG CAPS* Take 800 mg by mouth. HYDROCODONE 5 MG-ACETAMINOPHE* Take 0.5-1 tablets by mouth t * FAMOTIDINE 20 MG TABLET Take 1 tablet by mouth twice * Patient not taking: Reported on 05/07/2019 BLOOD SUGAR DIAGNOSTIC STRIPS Test blood sugar(s) 1 times d* GLIMEPIRIDE 1 MG TABLET Take 1 tablet by mouth daily * VITS,CALCIUM 21-IRON* Take by mouth. Pt is taking 2 * CYANOCOBALAMIN (VIT B-12) 1,0* 1 mL IM every 3 weeks BUPROPION XL 150 MG TAB Take 1 tablet by mouth once d* ATORVASTATIN 20 MG TABLET Take 1 tablet by mouth once d* GABAPENTIN 300 MG CAPSULE Take 2 capsules by mouth twic* METFORMIN 850 MG TABLET Take 1 tablet by mouth twice * CYCLOBENZAPRINE 10 MG TABLET Take 1 tablet by mouth daily * MIRTAZAPINE 15 MG TABLET Take 1 tablet by mouth daily * POTASSIUM CHLORIDE ER 10 MEQ * Take 1 capsule by mouth once * Patient not taking: Reported on 09/04/2018 BLOOD-GLUCOSE METER KIT Glucose Meter of Choice - Kit* LANCETS Test blood sugar(s) 1 times d* BLOOD-GLUCOSE METER KIT Glucose Meter of Choice, insu* BLOOD SUGAR DIAGNOSTIC STRIPS Test blood sugar(s) 1x daily.* PAROXETINE 10 MG TABLET Take 1 tablet by mouth once d* BD LUER-MARLIN SYRINGE 3 ML 23 X* USE FOR B-12 INJECTIONS EVERY * MULTIVITAMIN CAPSULE Take 1 capsule by mouth once * Patient not taking: Reported on 12/09/2018 CHOLECALCIFEROL (VITAMIN D3) * Take 2 tablets by mouth once * MELATONIN 10 MG TABLET Take 10 mg by mouth daily at * ACYCLOVIR 5 % TOPICAL OINTMENT Apply 6 times daily for 7 day * LANCETS Use as instructed Problem List As Of Date 06/05/2019 Noted Resolved ROTATOR CUFF SYND NOS [M71.9, M67.919] 12/22/2002 Lateral epicondylitis of elbow [M77.10] 12/22/2002 0 JOINT PAIN-UP/ARM [M25.529] 02/02/2003 TRIGGER FINGER [M65.30] 03/30/2003 More... Follow-up examination following surgery [V67.0] 07/18/2004 1 Other tenosynovitis of hand and wrist [M65.849,*05/01/2005 1 Hyperlipidemia [E78.5] More... Iron deficiency anemia [D50.9] More... PERNICIOUS ANEMIA [D51.0] More... More... More... Diabetes mellitus type 2, controlled, without c*05/07/2005 More... Pain in soft tissues of limb [M79.609] 05/15/2005 04/18/2010 INSOMNIA NOS [G47.00] 07/25/2005 More... OSTEOPENIA [M89.9, M94.9] 10/23/2005 More... PEPTIC ULCER NOS [K27.9] 10/23/2005 Unspecified ventral hernia without mention of o*10/23/2005 1 DIVERTICULOSIS OF COLON W/O BLEED [K57.30] 10/23/2005 IRRITABLE COLON [K58.9] 11/28/2005 Abdominal pain, right upper quadrant [R10.11] 04/05/2006 RECURRENT UTI's [N39.0] 03/22/2008 04/18/2010 Fibromyalgia [M79.7] 06/29/2008 More... Abdominal pain, other specified site [R10.9] 06/29/200803/31 HEMORRHOIDS NOS [K64.9] 06/29/2008 DISLOC DIST RADIOULN-CLOSE [S63.016A] 07/13/2008 Abdominal pain, generalized [R10.84] 10/29/2008 04/18/2010 PULMONARY NODULE [R22.2] 01/17/2009 More... ATROPHIC VAGINITIS [N95.2] 01/17/2009 FELIPE (Generalized Anxiety Disorder) [F41.1] 03/20/2010 Cervicalgia [M54.2] 05/22/2010 Other physical therapy [DBP6456] 06/21/2010 01/06/2016 Other specified disorder of bladder [596.8] 07/25/201001/05 Recurrent UTI [N39.0] 07/03/2011 01/06/2016 Polypharmacy [Z79.899] 07/03/2011 Abnormality of urethral meatus [Q64.70] 07/16/2011 Generalized abdominal pain [R10.84] 07/16/2011 Urinary retention [R33.9] 07/16/2011 Hypothyroidism [E03.9] 01/07/2012 Urgency of urination [R39.15] 03/19/2012 Urge incontinence [N39.41] 03/19/2012 Trigger index finger of right hand [M65.321] 12/25/2012 DJD (degenerative joint disease) [M19.90] Marital conflict [Z63.0] 03/15/2014 Vitamin D deficiency [E55.9] 07/13/2014 Attention deficit hyperactivity disorder (ADHD)*02/10/2015 Bilateral low back pain with right-sided sciati*06/02/2015 Right hip pain [M25.551] 06/02/2015 Recurrent major depressive disorder, in partial*09/26/2015 Pain in right hip [M25.551] 10/25/2015 Trochanteric bursitis of both hips [M70.61, M70*10/25/2015 Chronic bilateral low back pain without sciatic*10/25/2015 Trigger little finger of left hand [M65.352] 01/23/2016 Trigger ring finger of left hand [M65.342] 01/23/2016 Trigger middle finger of left hand [M65.332] 01/23/2016 Bilateral hip pain [M25.551, M25.552] 09/20/2016 Greater trochanteric bursitis of both hips [M70*09/20/2016 Status post bariatric surgery [Z98.84] 10/11/2016 Dysuria [R30.0] 11/21/2017 Nonrheumatic aortic valve stenosis [I35.0] 12/19/2018 HTN, goal below 130/80 [I10] 12/19/2018 Encounter Status:Closed by TERESA IRWIN LPN on 06/05/19 xr hip 3v pelv+ ap/lat lt on 2019-06-04 XR HIP 3V PELV+ * * *Final Report* * * Normal 1 08-05-2018 [facility] AP/LAT LT DATE OF EXAM: Jun 04 2019 9:54AM [place] ([id number]) WOX [id number] - XR HIP 3V PELV+ AP/LAT LT / PROCEDURE REASON: Left leg pain * * * * Physician Interpretation * * * * EXAMINATION: XR HIP 3V PELV+ AP/LAT LT CLINICAL HISTORY: Left sided groin pain that radiates down t he left leg x 1 week without injury Left leg pain Technique: XR HIP 3V PELV+ AP/LAT LT -- LEFT with 3 views on 3 images Comparison: None RESULT: No fracture or dislocation. Joint spaces are maintained. Chondrocalcinosis. SI joints and pubic symphysis are intact. Postsurgical changes in the lower lumbar spine. IMPRESSION: No acute osseous finding left hip. Left hip is maintained. Chondrocalcinosis. Salesperson Parts: PSCB Transcribe Date/Time: Jun 04 2019 12:03P Dictated by : DAMARI DOHERTY MD This examination was interpreted and the report reviewed and electronically signed by: DAMARI DOHERTY MD on Jun 04 2019 12:04PM EST [id number] progress on 2019-05 PROGRESS HNO ID: [id number] Normal 06-04-2019 [facility] Author: Adelaida Polo () Deja Vuong ([id number]) Service: ? Author Type: Data Migration Consultant Type: Progress Notes Filed: 06/04/2019 9:55 AM Note Text: Radiology Service Progress Note PATIENT NAME: Sonny Dennis DATE OF SERVICE: June 04, 2019 TIME: 9:40 AM PATIENT IDENTITY VERIFICATION COMPLETED USING TWO (2) IDENTI FIERS: Name and Date of confirmed by patient verbally. PATIENT GENDER DATA: Female. status: : No status: NO. PATIENT RELEVANT IMPLANT DATA REVIEWED: Not Applicable RADIOLOGY DEPARTMENT: General X-ray: Exam(s) Completed: Pelv is X-Ray: Pelvis with Hip Right PERIPHERAL IV DATA: Not applicable SIGNED BY: RT Alberto June 04, 2019 9:40 AM PROGRESS HNO ID: [id number] Normal 06-04-2019 [facility] Author: Michelle Gray) Tanmay Santiago ([id number]) Service: ? Author Type: Nurse Practitioner Type: Progress Notes Filed: 06/04/2019 11:47 AM Note Text: 06/04/2019 Patient presents with: Thigh Pain: starts at top of lft groin goes into top of thig h down to knee started a week ago SUBJECTIVE: This is a 79 year old that is here today for Abo ve Complaints. Back surgery in December ONSET: one week LOCATION: left groin area ( however points to left lower abd ominal area) left thigh- anteriorly DURATION: intermittent CHARACTERISTICS: sharp AGGRAVATING FEATURES: when puts heel down, getting up from s itting position ALLEVIATING FEATURES: walking on the tips of her toes and he r prescribed vicodin Denies fevers, chills, weight loss, extremity numbness, ting ling, weakness, groin numbness, abdominal pain, nausea, vomiting, constipation, diarrhea, hematochezia, melana, or dysuria. PAST MEDICAL HISTORY Diagnosis Date - Abdominal pain, generalized - Abdominal pain, right upper quadrant - Abdominal pain, unspecified site - Anxiety state, unspecified - Depressive disorder, not elsewhere classified - Disorder of bone and cartilage, unspecified osteopenia - Diverticulosis of colon (without mention of hemorrhage) - DJD (degenerative joint disease) - Essential hypertension 01/06/2016 - Fibromyalgia - Iron deficiency anemia, unspecified - Other and unspecified hyperlipidemia - Pernicious anemia - Type II or unspecified type diabetes mellitus without ment ion of complication, not stated as uncontrolled dx'd early 30s ALLERGIES Macrobid [Nitrofurantoin Monohyd/M-Cryst]; Adhesiv e Tape (Rosins); Ativan [Lorazepam]; Benzodiazepines; Ciprofloxacin ; Demerol [Meperidine Hcl]; Latex; Sulfa (Sulfonamide Antibiotics); Xa nthines MEDICATIONS Current Outpatient Medications Medication Sig - furosemide (LASIX) 20 mg tablet Take 1 tablet by mouth onc e daily. as needed for leg swelling. - levothyroxine (SYNTHROID) 50 mcg tablet Take 1 tablet by m outh daily before breakfast. ID# [id number] - lisinopril (ZESTRIL, PRINIVIL) 10 mg tablet Take 1 tablet by mouth once daily. As directed ID# [id number] - calcium carbonate (CALCIUM 600 ORAL) Take by mouth. - Vitamin E, dl, acetate, (VITAMIN E) 400 unit capsule Take 400 Units by mouth once daily. - cyanocobalamin (VITAMIN B-12) 500 mcg tab tab(s) Take by m outh once daily. - Cranberry Extract 200 mg cap Take 800 mg by mouth. - HYDROcodone-acetaminophen (NORCO) 5-325 mg per tablet Take 0.5-1 tablets by mouth twice daily as needed for up to 60 days. - blood sugar diagnostic (BLOOD GLUCOSE TEST) test strip Willie t blood sugar(s) 1 times daily. Dx: Type 2 DM - Controlled E11.9 Ins ulin: No - glimepiride (AMARYL) 1 mg tablet Take 1 tablet by mouth da eb with breakfast. ID# [id number] - PNV Cmb#[id number] Acid ( COMPLETE) 14 mg iron- 400 mcg tab Take by mouth. Pt is taking 2 tablets daily - cyanocobalamin 1,000 mcg/mL soln 1 mL IM every 3 weeks - buPROPion XL (WELLBUTRIN XL) 150 mg 24 hr tablet Take 1 ta blet by mouth once daily. ID# [id number] - atorvastatin (LIPITOR) 20 mg tablet Take 1 tablet by mouth once daily. - metFORMIN (GLUCOPHAGE) 850 mg tablet Take 1 tablet by mout h twice daily with meals. ID# [id number] - cyclobenzaprine (FLEXERIL) 10 mg tablet Take 1 tablet by m outh daily at bedtime. ID# [id number] - mirtazapine (REMERON) 15 mg tablet Take 1 tablet by mouth daily at bedtime. ID# [id number] - Blood-Glucose Meter monitoring kit Glucose Meter of Choice - Kit - Dx: Type 2 DM - Controlled E11.9 Test blood sugar 1 time daily. - Lancets lancets Test blood sugar(s) 1 times daily. Dx: Typ e 2 DM - Controlled E11.9 Insulin: No - Blood-Glucose Meter monitoring kit Glucose Meter of Choice , insurance preferred - Kit - Dx: Type 2 DM - Controlled E11.9 - blood sugar diagnostic (BLOOD GLUCOSE TEST) test strip Willie t blood sugar(s) 1x daily. Dx: Controlled DM type 2. Insulin: No - PARoxetine (PAXIL) 10 mg tablet Take 1 tablet by mouth onc e daily. ID# [id number] - BD LUER-MARLIN SYRINGE 3 mL 23 x 1 syrg USE FOR B-12 INJECTI ONS EVERY 3 WEEKS OR DIRECTED - cholecalciferol (VITAMIN D) 1,000 unit tab tablet Take 2 t ablets by mouth once daily. - melatonin 10 mg tab Take 10 mg by mouth daily at bedtime. - acyclovir (ZOVIRAX) 5 % ointment Apply 6 times daily for 7 days for cold sores - Lancets (ACCU-CHEK MULTICLIX LANCET) Misc lancets Use as i nstructed - famotidine (PEPCID) 20 mg tablet Take 1 tablet by mouth tw ice daily. (Patient not taking: Reported on 05/07/2019 ) - gabapentin (NEURONTIN) 300 mg capsule Take 2 capsules by m outh twice daily for 180 days. ID# [id number] - potassium chloride SR (MICRO-K) 10 mEq CR capsule Take 1 c apsule by mouth once daily. once daily for three days then once daily when taking furosemide. (Patient not taking: Reported on 09/04/2018 ) - Multivitamin capsule Take 1 capsule by mouth once daily. ( Patient not taking: Reported on 12/09/2018 ) No current facility-administered medications for this visit. Medications and allergies reviewed by this provider. SOCIAL HISTORY Social History Tobacco Use - Smoking status: Former Smoker Packs/day: 1.00 Years: 5.00 Pack years: 5.00 Types: Cigarettes Last attempt to quit: 01/05/1971 Years since quittin.4 - Smokeless tobacco: Never Used Substance Use Topics - Alcohol use: Yes Comment: Rarely - Drug use: No REVIEW OF SYSTEMS All other reviewed and negative other than HPI. OBJECTIVE: BP 110/62 (BP Site: Left Arm, BP Position: Sitting, BP Cuff Size: Regular Adult) Pulse 64 Resp 16 Wt 55.8 kg (123 lb 1.9 oz) B WV 22.89 kg/m? . Vital signs reviewed by this provider. APPEARANCE Well appearing, alert, in no acute distress, well -hydrated, well nourished. HEART RRR with normal S1 and S2, , no gallops, no JVD apprec iated LUNG clear to auscultation. N wheezes, rhonchi or rales ABDOMEN bowel sounds normoactive, no bruits, soft, non-tende r, non-distended. TTP LLQ just above groin region. No rebound t enderness or guarding EXTREMITIES Extremities normal, No deformities, No skin disc oloration and No edema SKIN Skin color, texture, turgor normal, no suspicious rashe s or lesions to exposed skin Right hip: without swelling and loss of ROM. Pain over great er trochanter area, right thigh, and above right groin area with external and internal rotion ASSESSMENT/PLAN: 1. Left leg pain - ICD9: 729.5, ICD10: M79.605 (primary diag nosis) - consider arthritis vs bursitis - recommend ice or heat for 15 minutes at a time - tylenol for pain due to decreased renal function - XR HIP GENERAL 3V PELV/AP/LAT LT - follow-up pending x-ray 2. Lower abdominal pain - ICD9: 789.09, ICD10: R10.30 - with pain being just above groin possibly referred from hi p as she has no there complaints that would direct me to think she has di verticulitis - no red flag exam findings - red flag symptoms discussed, verbalizes understanding - follow-up if persists or worsens to ER with red flag sympt oms Michelle Donato APRN.CNP Prescription instructions reviewed with patient as applicabl e. Patient advised if symptoms do not improve or if symptoms worsen rian ner, to contact their primary care physician. Potential red flag sym ptoms discussed with the patient. Reviewed appropriate action plan to take if red flag symptoms occur. Patient agreeable to treatment plan . cnov on 2019-06-04 [facility] Office Visit (FAMPWS) Normal 06-04-[address] [place] [facility] SONNY DENNIS ([id number]) 1940 [facility] Date Time Provider Department ([id number]) 06/04/19 8:40 AM MICHELLE DONATO (PAULINO) [facility] During your visit today, we recorded the following informati on about you: Pulse Respiration Blood pressure Weight 64/minute 16/minute 110/62 55.8 kg Michelle Donato APRN.CNP 06/04/2019 11:47 AM Signed 06/04/2019 Patient presents with: Thigh Pain: starts at top of lft groin goes into top of thig h down to knee started a week ago SUBJECTIVE: This is a 79 yea r old that is here today for Above Complaints. Back surgery in December ONSET: one week LOCATION: left groin area ( however points to le ft lower abdominal area) left thigh- anteriorly DURATION: intermittent CHARACTERISTICS: sharp AGGRAVATING FEATURES: when puts heel down, getting up from sitting position ALLEVIATING FEATURES: walkin g on the tips of her toes and her prescribed vicodin Denies fevers, chills, weight loss, extremity numbness, ti ngling, weakness, groin numbness, abdominal pain, nausea, vomiting, constipati on, diarrhea, hematochezia, melana, or dysuria. PAST MEDICAL HISTORY Diagnosis Date - Abdominal pain, generalized - Abdominal pain, right upper quadrant - Abdominal pain, unspecified site - Anxiety state, unspecified - Depressive disorder, not elsewhere classified - Disorder of bone and cartilage, unspecified osteopenia - Diverticulosis of colon (without mention of hemorrhage) - DJD (degenerative joint disease) - Essential hypertension 01/06/2016 - Fibromyalgia - Iron deficiency anemia, unspecified - Other and unspecified hyperlipidemia - Pernicious anemia - Type II or unspecified type diabetes mellitus without ment ion of complication, not stated as uncontrolled dx'd early 30s ALLERGIES Macrobid [Nitrofurantoin Monohyd/M-Cryst]; A dhesive Tape (Rosins); Ativan [Lorazepam]; Benzodiazepines; Ciprofloxac in; Demerol [Meperidine Hcl]; Latex; Sulfa (Sulfonamide Antibiotics); Xanthines MEDICATIONS Current Outpatient Medications Medication Sig - furosemide (LASIX) 20 mg tablet Take 1 tablet by mouth once daily. as needed for leg swelling. - levothyroxine (SYNTHROID) 50 mcg tablet Take 1 tablet by mouth daily before breakfast. ID# [id number] - lisinopril (ZESTRIL, PRINIVIL) 10 mg tablet Take 1 tablet by mouth once daily. As directed ID# [id number] - calcium carbonate (CALCIUM 600 ORAL) Take by mouth. - Vitamin E, dl, acetate, (VITAMIN E) 40 0 unit capsule Take 400 Units by mouth once daily. - cyanocobalamin (VITAMIN B-12) 500 mcg tab tab(s) Sofiya e by mouth once daily. - Cranberry Extract 200 mg cap Take 800 mg by mouth. - HYDROcodone-acetaminophen (NORCO) 5-325 mg per tablet Take 0.5-1 tablets by mouth twice daily as needed for up to 60 days. - blood sugar diagnostic (BLOOD GLUCOSE TEST) test strip Test blood sugar(s) 1 times daily. Dx: Type 2 DM - Controlled E11.9 Insulin: No - glimepiride (AMARYL) 1 mg tablet Take 1 tablet by mouth daily with breakfast. ID# [id number] - PNV Cmb#26-Gxim-Ghyes Acid ( COMPLETE) 14 mg iron- 400 mcg tab Take by mouth. Pt is taking 2 tablets daily - cyanocobalamin 1,000 mcg/mL soln 1 mL IM every 3 weeks - buPROPion XL (WELLBUTRIN XL) 150 mg 24 hr tablet Take 1 tablet by mouth once daily. ID# [id number] - atorvastatin (LIPITOR) 20 mg tablet Take 1 tablet by mouth once daily. - metFORMIN (GLUCOPHAGE) 850 mg tablet T génesis 1 tablet by mouth twice daily with meals. ID# [id number] - cyclobenzaprine (FLEXERIL) 10 mg tablet Take 1 tablet by m outh daily at bedtime. ID# [id number] - mirtazapine (REMERON) 15 mg tablet Take 1 tabl et by mouth daily at bedtime. ID# [id number] - Blood-Glucose Meter monitoring kit Glucose Met er of Choice - Kit - Dx: Type 2 DM - Controlled E11.9 Test blood sugar 1 time daily. - Lancets lancets Test blood sugar(s) 1 times daily. Dx: Typ e 2 DM - Controlled E11.9 Insulin: No - Blood-Glucose Meter monitoring kit Glucose Meter of Choice , insurance preferred - Kit - Dx: Type 2 DM - Controlled E11.9 - blood sugar diagnostic (BL OOD GLUCOSE TEST) test strip Test blood sugar(s) 1x daily. Dx: Controlled DM type 2. Insulin: No - PARoxetine (PAXIL) 10 mg tablet Take 1 tablet by mouth onc e daily. ID# [id number] - BD LUER-MARLIN SYRINGE 3 mL 23 x 1 syrg USE FOR B-12 INJECTIONS EVERY 3 WEEKS OR DIRECTED - cholecalciferol (VITAMIN D) 1,000 unit tab tablet Take 2 tablets by mouth once daily. - melatonin 10 mg tab Take 10 mg by mouth daily at bedtime. - acyclovir (ZOVIRAX) 5 % ointment Apply 6 times daily for 7 days for cold sores - Lancets (ACCU-CHEK MULTICLIX LANCET) Mis lancets Use as i nstructed - famotidine (PEPCID) 20 mg tablet Take 1 tablet by mouth twice daily. (Patient not taking: Reported on 05/07/2019 ) - gabapentin (NEURONTIN) 300 mg capsule Take 2 capsule s by mouth twice daily for 180 days. ID# [id number] - potassium chloride SR (MICRO-K) 10 mEq CR capsule Take 1 capsule by mouth once daily. once daily for three days then once daily when taking furosemide. (Patient not taking: Reported on 09/04/2018 ) - Multivitamin capsule Take 1 capsule by mouth once daily. (Patient not taking: Reported on 12/09/2018 ) No current facility-administered medications for this visit. Medications and allergies reviewed by this provider. SOCIAL HISTORY Social History Tobacco Use - Smoking status: Former Smoker Packs/day: 1.00 Years: 5.00 Pack years: 5.00 Types: Cigarettes Last attempt to quit: 01/05/1971 Years since quittin.4 - Smokeless tobacco: Never Used Substance Use Topics - Alcohol use: Yes Comment: Rarely - Drug use: No REVIEW OF SYSTEMS All other reviewed and negative other than HPI. OBJECTIVE: BP 110/62 (BP Site: Left Arm, BP Position: Sitting, BP Cuff Size: Regular Adult) Pulse 64 Resp 16 Wt 55.8 kg (123 lb 1.9 oz) B WV 22.89 kg/m? . Vital signs reviewed by this provider. APPEARANCE Well appearing, alert, in no acute distress, we ll-hydrated, well nourished. HEART RRR with normal S1 and S2, , no gallops, no JVD apprec iated LUNG clear to auscultation. N wheezes, rhonchi or rales ABDOMEN bowel sounds normoactive, no bruits, sof t, non-tender, non-distended. TTP LLQ just above groin region. No rebound tenderness or gu arding EXTREMITIES Extremities normal, No deformities, No ski n discoloration and No edema SKIN Skin color, texture, turgor normal, no suspicious seema hes or lesions to exposed skin Right hip: without swelling and loss of ROM. Pain over great er trochanter area, right thigh, and above right groin area with external and internal rotion ASSESSMENT/PLAN: 1. Left leg pain - ICD9: 729.5, ICD10: M79.605 (primary diag nosis) - consider arthritis vs bursitis - recommend ice or heat for 15 minutes at a time - tylenol for pain due to decreased renal function - XR HIP GENERAL 3V PELV/AP/LAT LT - follow-up pending x-ray 2. Lower abdominal pain - ICD9: 789.09, ICD10: R10.30 - with pain being just above groin possibly referred from hip as she has no there complaints that would direct me to think she has diver ticulitis - no red flag exam findings - red flag symptoms discussed, verbalizes understanding - follow-up if persists or worsens to ER with red flag sympt oms Michelle Podlogar, MATERIAL CHASER.ASSISTANT PROFESSOR OF CHEMISTRY Prescription instructions reviewed with patient as applicable. Patient advised if symptoms do not improve or if symptoms worsen sooner, to contact their primary care physician. Potential red flag symptoms discusse d with the patient. Reviewed appropriate action plan to sofiya e if red flag symptoms occur. Patient agreeable to treatment plan. Referring Provider: SELF [[id number]] Allergies As of Date: 06/04/2019 Noted Allergy Reaction MACROBID (NITROFURANTOIN MONOHYD/*01/10/2009 8 - GI Upset ADHESIVE TAPE (ROSINS) 03/03/2013 14 - Other: See Comments Comments: redness ATIVAN (LORAZEPAM) 12/27/2015 1 - Mental Status Change BENZODIAZEPINES 12/22/2002 1 - Mental Status Change Comments: ativan--made her loopy while in hospital CIPROFLOXACIN 04/27/2008 9 - Itching Comments: Oral Yeast Infection Thrush DEMEROL (MEPERIDINE HCL) 05/04/2005 LATEX 12/22/2002 2 - Rash Comments: Pt notes is a sensitivity, not allergy SULFA (SULFONAMIDE ANTIBIOTICS) 12/22/2002 14 - Other: See C omments Comments: Patient was treated for UTI in October 2011 after told nurse that reaction was just yeast infection (not vomiting as was previously listed) XANTHINES 12/22/2002 Comments: darvon Date Reviewed: 06/04/2019 Reviewed by: Teresa Romeo (Director Pediatric) RACHEL Irwin - Fully Assessed Reason for Visit: Thigh Pain [1586] Cmt: starts at top of lft groin goes into top of thigh down to knee started a week ago Primary Visit Diagnosis:Left leg pain [M79.605] Other Visit Diagnosis:Lower abdominal pain [R10.30] Order(s):XR HIP GENERAL 3V PELV/AP/LAT L T [[id number]] Order #: [id number] FUTURE Prescriptions as of 06/04/2019 Sig: FUROSEMIDE 20 MG TABLET Take 1 tablet by mouth once d* LEVOTHYROXINE 50 MCG TABLET Take 1 tablet by mouth daily * LISINOPRIL 10 MG TABLET Take 1 tablet by mouth once d* CALCIUM 600 ORAL Take by mouth. VITAMIN E 400 UNIT CAPSULE Take 400 Units by mouth once * CYANOCOBALAMIN (VIT B-12) 500* Take by mouth once daily. CRANBERRY EXTRACT 200 MG CAPS* Take 800 mg by mouth. HYDROCODONE 5 MG-ACETAMINOPHE* Take 0.5-1 tablets by mouth t * BLOOD SUGAR DIAGNOSTIC STRIPS Test blood sugar(s) 1 times d* GLIMEPIRIDE 1 MG TABLET Take 1 tablet by mouth daily * VITS,CALCIUM 21-IRON* Take by mouth. Pt is taking 2 * CYANOCOBALAMIN (VIT B-12) 1,0* 1 mL IM every 3 weeks BUPROPION XL 150 MG TAB Take 1 tablet by mouth once d* ATORVASTATIN 20 MG TABLET Take 1 tablet by mouth once d* METFORMIN 850 MG TABLET Take 1 tablet by mouth twice * CYCLOBENZAPRINE 10 MG TABLET Take 1 tablet by mouth daily * MIRTAZAPINE 15 MG TABLET Take 1 tablet by mouth daily * BLOOD-GLUCOSE METER KIT Glucose Meter of Choice - Kit* LANCETS Test blood sugar(s) 1 times d* BLOOD-GLUCOSE METER KIT Glucose Meter of Choice, insu* BLOOD SUGAR DIAGNOSTIC STRIPS Test blood sugar(s) 1x daily.* PAROXETINE 10 MG TABLET Take 1 tablet by mouth once d* BD LUER-MARLIN SYRINGE 3 ML 23 X* USE FOR B-12 INJECTIONS EVERY * CHOLECALCIFEROL (VITAMIN D3) * Take 2 tablets by mouth once * MELATONIN 10 MG TABLET Take 10 mg by mouth daily at * ACYCLOVIR 5 % TOPICAL OINTMENT Apply 6 times daily for 7 day * LANCETS Use as instructed FAMOTIDINE 20 MG TABLET Take 1 tablet by mouth twice * Patient not taking: Reported on 05/07/2019 GABAPENTIN 300 MG CAPSULE Take 2 capsules by mouth twic* POTASSIUM CHLORIDE ER 10 MEQ * Take 1 capsule by mouth once * Patient not taking: Reported on 09/04/2018 MULTIVITAMIN CAPSULE Take 1 capsule by mouth once * Patient not taking: Reported on 12/09/2018 Problem List As Of Date 06/04/2019 Noted Resolved ROTATOR CUFF SYND NOS [M71.9, M67.919] 12/22/2002 Lateral epicondylitis of elbow [M77.10] 12/22/2002 0 JOINT PAIN-UP/ARM [M25.529] 02/02/2003 TRIGGER FINGER [M65.30] 03/30/2003 More... Follow-up examination following surgery [V67.0] 07/18/2004 1 Other tenosynovitis of hand and wrist [M65.849,*05/01/2005 1 Hyperlipidemia [E78.5] More... Iron deficiency anemia [D50.9] More... PERNICIOUS ANEMIA [D51.0] More... More... More... Diabetes mellitus type 2, controlled, without c*05/07/2005 More... Pain in soft tissues of limb [M79.609] 05/15/2005 04/18/2010 INSOMNIA NOS [G47.00] 07/25/2005 More... OSTEOPENIA [M89.9, M94.9] 10/23/2005 More... PEPTIC ULCER NOS [K27.9] 10/23/2005 Unspecified ventral hernia without mention of o*10/23/2005 1 DIVERTICULOSIS OF COLON W/O BLEED [K57.30] 10/23/2005 IRRITABLE COLON [K58.9] 11/28/2005 Abdominal pain, right upper quadrant [R10.11] 04/05/2006 RECURRENT UTI's [N39.0] 03/22/2008 04/18/2010 Fibromyalgia [M79.7] 06/29/2008 More... Abdominal pain, other specified site [R10.9] 06/29/200803/31 HEMORRHOIDS NOS [K64.9] 06/29/2008 DISLOC DIST RADIOULN-CLOSE [S63.016A] 07/13/2008 Abdominal pain, generalized [R10.84] 10/29/2008 04/18/2010 PULMONARY NODULE [R22.2] 01/17/2009 More... 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] 07/16/2011 Generalized abdominal pain [R10.84] 07/16/2011 Urinary retention [R33.9] 07/16/2011 Hypothyroidism [E03.9] 01/07/2012 Urgency of urination [R39.15] 03/19/2012 Urge incontinence [N39.41] 03/19/2012 Trigger index finger of right hand [M65.321] 12/25/2012 DJD (degenerative joint disease) [M19.90] Marital conflict [Z63.0] 03/15/2014 Vitamin D deficiency [E55.9] 07/13/2014 Attention deficit hyperactivity disorder (ADHD)*02/10/2015 Bilateral low back pain with right-sided sciati*06/02/2015 Right hip pain [M25.551] 06/02/2015 Recurrent major depressive disorder, in partial*09/26/2015 Pain in right hip [M25.551] 10/25/2015 Trochanteric bursitis of both hips [M70.61, M70*10/25/2015 Chronic bilateral low back pain without sciatic*10/25/2015 Trigger little finger of left hand [M65.352] 01/23/2016 Trigger ring finger of left hand [M65.342] 01/23/2016 Trigger middle finger of left hand [M65.332] 01/23/2016 Bilateral hip pain [M25.551, M25.552] 09/20/2016 Greater trochanteric bursitis of both hips [M70*09/20/2016 Status post bariatric surgery [Z98.84] 10/11/2016 Dysuria [R30.0] 11/21/2017 Nonrheumatic aortic valve stenosis [I35.0] 12/19/2018 HTN, goal below 130/80 [I10] 12/19/2018 Follow-up and Disposition History Recorded Encounter Status:Closed by MICHELLE DONATO CNP on 06/04/19 obsolete on 2019-05 OBSOLETE Refill (INTMWS) Normal 06-02-[address] [facility] SONNY DENNIS ([id number]) 1940 [facility] Time Provider Department ([id number]) 06/02/19 MATI MONTENEGRO INTMWS During your visit today, we recorded the following informati on about you: Allergies As of Date: 06/02/2019 Noted Allergy Reaction MACROBID (NITROFURANTOIN MONOHYD/*01/10/2009 8 - GI Upset ADHESIVE TAPE (ROSINS) 03/03/2013 14 - Other: See Comments Comments: redness ATIVAN (LORAZEPAM) 12/27/2015 1 - Mental Status Change BENZODIAZEPINES 12/22/2002 1 - Mental Status Change Comments: ativan--made her loopy while in hospital CIPROFLOXACIN 04/27/2008 9 - Itching Comments: Oral Yeast Infection Thrush DEMEROL (MEPERIDINE HCL) 05/04/2005 LATEX 12/22/2002 2 - Rash Comments: Pt notes is a sensitivity, not allergy SULFA (SULFONAMIDE ANTIBIOTICS) 12/22/2002 14 - Other: See C omments Comments: Patient was treated for UTI in October 2011 after told nurse that reaction was just yeast infection (not vomiting as was previously listed) XANTHINES 12/22/2002 Comments: matti Date Reviewed: 05/07/2019 Reviewed by: Magali Choudhury LPN - Fully Assessed Reason for Visit: Refill Request [94] Refill Request [94] Reason For Visit History Recorded Prescriptions as of 06/02/2019 Sig: X FUROSEMIDE 20 MG TABLET Take 1 tablet by mouth once d* X LEVOTHYROXINE 50 MCG TABLET Take 1 tablet by mouth daily * X LISINOPRIL 10 MG TABLET Take 1 tablet by mouth once d* CALCIUM 600 ORAL Take by mouth. VITAMIN E 400 UNIT CAPSULE Take 400 Units by mouth once * CYANOCOBALAMIN (VIT B-12) 500* Take by mouth once daily. CRANBERRY EXTRACT 200 MG CAPS* Take 800 mg by mouth. X HYDROCODONE 5 MG-ACETAMINOPHE* Take 0.5-1 tablets by mouth t* X FAMOTIDINE 20 MG TABLET Take 1 tablet by mouth twice * BLOOD SUGAR DIAGNOSTIC STRIPS Test blood sugar(s) 1 times d* GLIMEPIRIDE 1 MG TABLET Take 1 tablet by mouth daily * VITS,CALCIUM 21-IRON* Take by mouth. Pt is taking 2 * CYANOCOBALAMIN (VIT B-12) 1,0* 1 mL IM every 3 weeks BUPROPION XL 150 MG TAB Take 1 tablet by mouth once d* X ATORVASTATIN 20 MG TABLET Take 1 tablet by mouth once d* METFORMIN 850 MG TABLET Take 1 tablet by mouth twice * X GABAPENTIN 300 MG CAPSULE Take 2 capsules by mouth twic* X CYCLOBENZAPRINE 10 MG TABLET Take 1 tablet by mouth daily * X MIRTAZAPINE 15 MG TABLET Take 1 tablet by mouth daily * POTASSIUM CHLORIDE ER 10 MEQ * Take 1 capsule by mouth once * Patient not taking: Reported on 07/06/2019 BLOOD-GLUCOSE METER KIT Glucose Meter of Choice - Kit* LANCETS Test blood sugar(s) 1 times d* BLOOD-GLUCOSE METER KIT Glucose Meter of Choice, insu* BLOOD SUGAR DIAGNOSTIC STRIPS Test blood sugar(s) 1x daily.* X PAROXETINE 10 MG TABLET Take 1 tablet by mouth once d* BD LUER-MARLIN SYRINGE 3 ML 23 X* USE FOR B-12 INJECTIONS EVERY * MULTIVITAMIN CAPSULE Take 1 capsule by mouth once * CHOLECALCIFEROL (VITAMIN D3) * Take 2 tablets by mouth once * MELATONIN 10 MG TABLET Take 10 mg by mouth daily at * ACYCLOVIR 5 % TOPICAL OINTMENT Apply 6 times daily for 7 day * LANCETS Use as instructed Problem List As Of Date 06/02/2019 Noted Resolved ROTATOR CUFF SYND NOS [M71.9, M67.919] 12/22/2002 Lateral epicondylitis of elbow [M77.10] 12/22/2002 10/19/201 0 JOINT PAIN-UP/ARM [M25.529] 02/02/2003 TRIGGER FINGER [M65.30] 03/30/2003 More... Follow-up examination following surgery [V67.0] 07/18/2004 1 Other tenosynovitis of hand and wrist [M65.849,*05/01/2005 1 Hyperlipidemia [E78.5] More... Iron deficiency anemia [D50.9] More... PERNICIOUS ANEMIA [D51.0] More... More... More... Diabetes mellitus type 2, controlled, without c*05/07/2005 More... Pain in soft tissues of limb [M79.609] 05/15/2005 04/18/2010 INSOMNIA NOS [G47.00] 07/25/2005 More... OSTEOPENIA [M89.9, M94.9] 10/23/2005 More... PEPTIC ULCER NOS [K27.9] 10/23/2005 Unspecified ventral hernia without mention of o*10/23/2005 1 DIVERTICULOSIS OF COLON W/O BLEED [K57.30] 10/23/2005 IRRITABLE COLON [K58.9] 11/28/2005 Abdominal pain, right upper quadrant [R10.11] 04/05/2006 RECURRENT UTI's [N39.0] 03/22/2008 04/18/2010 Fibromyalgia [M79.7] 06/29/2008 More... Abdominal pain, other specified site [R10.9] 06/29/200803/31 HEMORRHOIDS NOS [K64.9] 06/29/2008 DISLOC DIST RADIOULN-CLOSE [S63.016A] 07/13/2008 Abdominal pain, generalized [R10.84] 10/29/2008 04/18/2010 PULMONARY NODULE [R22.2] 01/17/2009 More... 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] 07/16/2011 Generalized abdominal pain [R10.84] 07/16/2011 Urinary retention [R33.9] 07/16/2011 Hypothyroidism [E03.9] 01/07/2012 Urgency of urination [R39.15] 03/19/2012 Urge incontinence [N39.41] 03/19/2012 Trigger index finger of right hand [M65.321] 12/25/2012 DJD (degenerative joint disease) [M19.90] Marital conflict [Z63.0] 03/15/2014 Vitamin D deficiency [E55.9] 07/13/2014 Attention deficit hyperactivity disorder (ADHD)*02/10/2015 Bilateral low back pain with right-sided sciati*06/02/2015 Right hip pain [M25.551] 06/02/2015 Recurrent major depressive disorder, in partial*09/26/2015 Pain in right hip [M25.551] 10/25/2015 Trochanteric bursitis of both hips [M70.61, M70*10/25/2015 Chronic bilateral low back pain without sciatic*10/25/2015 Trigger little finger of left hand [M65.352] 01/23/2016 Trigger ring finger of left hand [M65.342] 01/23/2016 Trigger middle finger of left hand [M65.332] 01/23/2016 Bilateral hip pain [M25.551, M25.552] 09/20/2016 Greater trochanteric bursitis of both hips [M70*09/20/2016 Status post bariatric surgery [Z98.84] 10/11/2016 Dysuria [R30.0] 11/21/2017 Nonrheumatic aortic valve stenosis [I35.0] 12/19/2018 HTN, goal below 130/80 [I10] 12/19/2018 Encounter Status:Closed by IVIS MONTELONGO LPN on 10/26/19 obsolete on 2019-05 OBSOLETE Refill (INTMWS) Normal 05-29-[address] [facility] SONNYSONNY Agueda ([id number]) 1940 [facility] Date Time Provider Department ([id number]) 05/29/19 MATI MONTENEGRO INTMERA During your visit today, we recorded the following informati on about you: Maile Rincon Pss 05/29/2019 8:10 AM Signed Patient's request for medication is as follows: Pending Prescriptions Disp Refills CYCLOBENZAPRINE 10 MG TABLET 90 tablet 3 Sig: Take 1 tablet by mouth daily at bedtime. ID# [id number] ROSARIO: No Prescription(s) as above. Please process accordingly. Maile Anne M Kiran Goldstein RN 05/29/2019 9:27 AM Signed Spoke with patient and infor med her, current Rx should last her to Jul at [facility]. Patient is not sure if she has [facility] or [facility]. Will delete request, patient will check at home, and call back if needs medication refilled with name of pharmacy. Allergies As of Date: 05/29/2019 Noted Allergy Reaction MACROBID (NITROFURANTOIN MONOHYD/*01/10/2009 8 - GI Upset ADHESIVE TAPE (ROSINS) 03/03/2013 14 - Other: See Comments Comments: redness ATIVAN (LORAZEPAM) 12/27/2015 1 - Mental Status Change BENZODIAZEPINES 12/22/2002 1 - Mental Status Change Comments: ativan--made her loopy while in hospital CIPROFLOXACIN 04/27/2008 9 - Itching Comments: Oral Yeast Infection Thrush DEMEROL (MEPERIDINE HCL) 05/04/2005 LATEX 12/22/2002 2 - Rash Comments: Pt notes is a sensitivity, not allergy SULFA (SULFONAMIDE ANTIBIOTICS) 12/22/2002 14 - Other: See Palmira huynh Comments: Patient was treated for UTI in October 2011 after told nurse that reaction was just yeast infection (not vomiting as was previously listed) XANTHINES 12/22/2002 Comments: matti Date Reviewed: 05/07/2019 Reviewed by: Magali Choudhury LPN - Fully Assessed Reason for Visit: Refill Request [94] Visit Diagnosis:Fibromyalgia [M79.7] Prescriptions as of 05/29/2019 Sig: FUROSEMIDE 20 MG TABLET Take 1 tablet by mouth once d* LEVOTHYROXINE 50 MCG TABLET Take 1 tablet by mouth daily * LISINOPRIL 10 MG TABLET Take 1 tablet by mouth once d* CALCIUM 600 ORAL Take by mouth. VITAMIN E 400 UNIT CAPSULE Take 400 Units by mouth once * CYANOCOBALAMIN (VIT B-12) 500* Take by mouth once daily. CRANBERRY EXTRACT 200 MG CAPS* Take 800 mg by mouth. HYDROCODONE 5 MG-ACETAMINOPHE* Take 0.5-1 tablets by mouth t * FAMOTIDINE 20 MG TABLET Take 1 tablet by mouth twice * Patient not taking: Reported on 05/07/2019 BLOOD SUGAR DIAGNOSTIC STRIPS Test blood sugar(s) 1 times d* GLIMEPIRIDE 1 MG TABLET Take 1 tablet by mouth daily * VITS,CALCIUM 21-IRON* Take by mouth. Pt is taking 2 * CYANOCOBALAMIN (VIT B-12) 1,0* 1 mL IM every 3 weeks BUPROPION XL 150 MG TAB Take 1 tablet by mouth once d* ATORVASTATIN 20 MG TABLET Take 1 tablet by mouth once d* GABAPENTIN 300 MG CAPSULE Take 2 capsules by mouth twic* METFORMIN 850 MG TABLET Take 1 tablet by mouth twice * CYCLOBENZAPRINE 10 MG TABLET Take 1 tablet by mouth daily * MIRTAZAPINE 15 MG TABLET Take 1 tablet by mouth daily * POTASSIUM CHLORIDE ER 10 MEQ * Take 1 capsule by mouth once * Patient not taking: Reported on 09/04/2018 BLOOD-GLUCOSE METER KIT Glucose Meter of Choice - Kit* LANCETS Test blood sugar(s) 1 times d* BLOOD-GLUCOSE METER KIT Glucose Meter of Choice, insu* BLOOD SUGAR DIAGNOSTIC STRIPS Test blood sugar(s) 1x daily.* PAROXETINE 10 MG TABLET Take 1 tablet by mouth once d* BD LUER-MARLIN SYRINGE 3 ML 23 X* USE FOR B-12 INJECTIONS EVERY * MULTIVITAMIN CAPSULE Take 1 capsule by mouth once * Patient not taking: Reported on 12/09/2018 CHOLECALCIFEROL (VITAMIN D3) * Take 2 tablets by mouth once * MELATONIN 10 MG TABLET Take 10 mg by mouth daily at * ACYCLOVIR 5 % TOPICAL OINTMENT Apply 6 times daily for 7 day * LANCETS Use as instructed Problem List As Of Date 05/29/2019 Noted Resolved ROTATOR CUFF SYND NOS [M71.9, M67.919] 12/22/2002 Lateral epicondylitis of elbow [M77.10] 12/22/2002 0 JOINT PAIN-UP/ARM [M25.529] 02/02/2003 TRIGGER FINGER [M65.30] 03/30/2003 More... Follow-up examination following surgery [V67.0] 07/18/2004 1 Other tenosynovitis of hand and wrist [M65.849,*05/01/2005 1 Hyperlipidemia [E78.5] More... Iron deficiency anemia [D50.9] More... PERNICIOUS ANEMIA [D51.0] More... More... More... Diabetes mellitus type 2, controlled, without c*05/07/2005 More... Pain in soft tissues of limb [M79.609] 05/15/2005 04/18/2010 INSOMNIA NOS [G47.00] 07/25/2005 More... OSTEOPENIA [M89.9, M94.9] 10/23/2005 More... PEPTIC ULCER NOS [K27.9] 10/23/2005 Unspecified ventral hernia without mention of o*10/23/2005 1 DIVERTICULOSIS OF COLON W/O BLEED [K57.30] 10/23/2005 IRRITABLE COLON [K58.9] 11/28/2005 Abdominal pain, right upper quadrant [R10.11] 04/05/2006 RECURRENT UTI's [N39.0] 03/22/2008 04/18/2010 Fibromyalgia [M79.7] 06/29/2008 More... Abdominal pain, other specified site [R10.9] 06/29/200803/31 HEMORRHOIDS NOS [K64.9] 06/29/2008 DISLOC DIST RADIOULN-CLOSE [S63.016A] 07/13/2008 Abdominal pain, generalized [R10.84] 10/29/2008 04/18/2010 PULMONARY NODULE [R22.2] 01/17/2009 More... ATROPHIC VAGINITIS [N95.2] 01/17/2009 FELIPE (Generalized Anxiety Disorder) [F41.1] 03/20/2010 Cervicalgia [M54.2] 05/22/2010 Other physical therapy [[id number]] 06/21/2010 01/06/2016 Other specified disorder of bladder [596.8] 07/25/201001/05 Recurrent UTI [N39.0] 07/03/2011 01/06/2016 Polypharmacy [Z79.899] 07/03/2011 Abnormality of urethral meatus [Q64.70] 07/16/2011 Generalized abdominal pain [R10.84] 07/16/2011 Urinary retention [R33.9] 07/16/2011 Hypothyroidism [E03.9] 01/07/2012 Urgency of urination [R39.15] 03/19/2012 Urge incontinence [N39.41] 03/19/2012 Trigger index finger of right hand [M65.321] 12/25/2012 DJD (degenerative joint disease) [M19.90] Marital conflict [Z63.0] 03/15/2014 Vitamin D deficiency [E55.9] 07/13/2014 Attention deficit hyperactivity disorder (ADHD)*02/10/2015 Bilateral low back pain with right-sided sciati*06/02/2015 Right hip pain [M25.551] 06/02/2015 Recurrent major depressive disorder, in partial*09/26/2015 Pain in right hip [M25.551] 10/25/2015 Trochanteric bursitis of both hips [M70.61, M70*10/25/2015 Chronic bilateral low back pain without sciatic*10/25/2015 Trigger little finger of left hand [M65.352] 01/23/2016 Trigger ring finger of left hand [M65.342] 01/23/2016 Trigger middle finger of left hand [M65.332] 01/23/2016 Bilateral hip pain [M25.551, M25.552] 09/20/2016 Greater trochanteric bursitis of both hips [M70*09/20/2016 Status post bariatric surgery [Z98.84] 10/11/2016 Dysuria [R30.0] 11/21/2017 Nonrheumatic aortic valve stenosis [I35.0] 12/19/2018 HTN, goal below 130/80 [I10] 12/19/2018 Encounter Status:Closed by Agueda GOLDSTEIN RN on 05/29/19 obsolete on 2019-05 OBSOLETE Refill (INTMWS) Normal 05-26-[address] [facility] SONNY DENNIS ([id number]) 1940 [facility] Date Time Provider Department ([id number]) 05/26/19 MATI MONTENEGRO INTMWS During your visit today, we recorded the following informati on about you: Verito Vasquez LPN 05/26/2019 3:56 PM Signed Patient has been identified by name and date of : Yes Patient phones for refill(s): Pending Prescriptions Disp Refills FUROSEMIDE 20 MG TABLET 30 tablet 0 Sig: Take 1 tablet by mouth once daily. as needed for leg sw elling. ROSARIO: No Date of last office visit in primary care: 05/07/2019 6 month follow-up scheduled w/PCP: 06/23/2019 Verito Vasquez LPN Allergies As of Date: 05/26/2019 Noted Allergy Reaction MACROBID (NITROFURANTOIN MONOHYD/*01/10/2009 8 - GI Upset ADHESIVE TAPE (ROSINS) 03/03/2013 14 - Other: See Comments Comments: redness ATIVAN (LORAZEPAM) 12/27/2015 1 - Mental Status Change BENZODIAZEPINES 12/22/2002 1 - Mental Status Change Comments: ativan--made her loopy while in hospital CIPROFLOXACIN 04/27/2008 9 - Itching Comments: Oral Yeast Infection Thrush DEMEROL (MEPERIDINE HCL) 05/04/2005 LATEX 12/22/2002 2 - Rash Comments: Pt notes is a sensitivity, not allergy SULFA (SULFONAMIDE ANTIBIOTICS) 12/22/2002 14 - Other: See C omments Comments: Patient was treated for UTI in October 2011 after told nurse that reaction was just yeast infection (not vomiting as was previously listed) XANTHINES 12/22/2002 Comments: matti Date Reviewed: 05/07/2019 Reviewed by: Magali Choudhury LPN - Fully Assessed Reason for Visit: Refill Request [94] Order(s):furosemide (LASIX) 20 mg tabletTake 1 t ablet by mouth once daily. as needed for leg swelling.Disp: 30 tabletRfl: 0 Prescriptions as of 05/26/2019 Sig: FUROSEMIDE 20 MG TABLET Take 1 tablet by mouth once d* LEVOTHYROXINE 50 MCG TABLET Take 1 tablet by mouth daily * LISINOPRIL 10 MG TABLET Take 1 tablet by mouth once d* CALCIUM 600 ORAL Take by mouth. VITAMIN E 400 UNIT CAPSULE Take 400 Units by mouth once * CYANOCOBALAMIN (VIT B-12) 500* Take by mouth once daily. CRANBERRY EXTRACT 200 MG CAPS* Take 800 mg by mouth. HYDROCODONE 5 MG-ACETAMINOPHE* Take 0.5-1 tablets by mouth t * FAMOTIDINE 20 MG TABLET Take 1 tablet by mouth twice * Patient not taking: Reported on 05/07/2019 BLOOD SUGAR DIAGNOSTIC STRIPS Test blood sugar(s) 1 times d* GLIMEPIRIDE 1 MG TABLET Take 1 tablet by mouth daily * VITS,CALCIUM 21-IRON* Take by mouth. Pt is taking 2 * CYANOCOBALAMIN (VIT B-12) 1,0* 1 mL IM every 3 weeks BUPROPION XL 150 MG TAB Take 1 tablet by mouth once d* ATORVASTATIN 20 MG TABLET Take 1 tablet by mouth once d* GABAPENTIN 300 MG CAPSULE Take 2 capsules by mouth twic* METFORMIN 850 MG TABLET Take 1 tablet by mouth twice * CYCLOBENZAPRINE 10 MG TABLET Take 1 tablet by mouth daily * MIRTAZAPINE 15 MG TABLET Take 1 tablet by mouth daily * POTASSIUM CHLORIDE ER 10 MEQ * Take 1 capsule by mouth once * Patient not taking: Reported on 09/04/2018 BLOOD-GLUCOSE METER KIT Glucose Meter of Choice - Kit* LANCETS Test blood sugar(s) 1 times d* BLOOD-GLUCOSE METER KIT Glucose Meter of Choice, insu* BLOOD SUGAR DIAGNOSTIC STRIPS Test blood sugar(s) 1x daily.* PAROXETINE 10 MG TABLET Take 1 tablet by mouth once d* BD LUER-MARLIN SYRINGE 3 ML 23 X* USE FOR B-12 INJECTIONS EVERY * MULTIVITAMIN CAPSULE Take 1 capsule by mouth once * Patient not taking: Reported on 12/09/2018 CHOLECALCIFEROL (VITAMIN D3) * Take 2 tablets by mouth once * MELATONIN 10 MG TABLET Take 10 mg by mouth daily at * ACYCLOVIR 5 % TOPICAL OINTMENT Apply 6 times daily for 7 day * LANCETS Use as instructed Problem List As Of Date 05/26/2019 Noted Resolved ROTATOR CUFF SYND NOS [M71.9, M67.919] 12/22/2002 Lateral epicondylitis of elbow [M77.10] 12/22/2002 0 JOINT PAIN-UP/ARM [M25.529] 02/02/2003 TRIGGER FINGER [M65.30] 03/30/2003 More... Follow-up examination following surgery [V67.0] 07/18/2004 1 Other tenosynovitis of hand and wrist [M65.849,*05/01/2005 1 Hyperlipidemia [E78.5] More... Iron deficiency anemia [D50.9] More... PERNICIOUS ANEMIA [D51.0] More... More... More... Diabetes mellitus type 2, controlled, without c*05/07/2005 More... Pain in soft tissues of limb [M79.609] 05/15/2005 04/18/2010 INSOMNIA NOS [G47.00] 07/25/2005 More... OSTEOPENIA [M89.9, M94.9] 10/23/2005 More... PEPTIC ULCER NOS [K27.9] 10/23/2005 Unspecified ventral hernia without mention of o*10/23/2005 1 DIVERTICULOSIS OF COLON W/O BLEED [K57.30] 10/23/2005 IRRITABLE COLON [K58.9] 11/28/2005 Abdominal pain, right upper quadrant [R10.11] 04/05/2006 RECURRENT UTI's [N39.0] 03/22/2008 04/18/2010 Fibromyalgia [M79.7] 06/29/2008 More... Abdominal pain, other specified site [R10.9] 06/29/200803/31 HEMORRHOIDS NOS [K64.9] 06/29/2008 DISLOC DIST RADIOULN-CLOSE [S63.016A] 07/13/2008 Abdominal pain, generalized [R10.84] 10/29/2008 04/18/2010 PULMONARY NODULE [R22.2] 01/17/2009 More... ATROPHIC VAGINITIS [N95.2] 01/17/2009 FELIPE (Generalized Anxiety Disorder) [F41.1] 03/20/2010 Cervicalgia [M54.2] 05/22/2010 Other physical therapy [OGR3998] 06/21/2010 01/06/2016 Other specified disorder of bladder [596.8] 07/25/201001/05 Recurrent UTI [N39.0] 07/03/2011 01/06/2016 Polypharmacy [Z79.899] 07/03/2011 Abnormality of urethral meatus [Q64.70] 07/16/2011 Generalized abdominal pain [R10.84] 07/16/2011 Urinary retention [R33.9] 07/16/2011 Hypothyroidism [E03.9] 01/07/2012 Urgency of urination [R39.15] 03/19/2012 Urge incontinence [N39.41] 03/19/2012 Trigger index finger of right hand [M65.321] 12/25/2012 DJD (degenerative joint disease) [M19.90] Marital conflict [Z63.0] 03/15/2014 Vitamin D deficiency [E55.9] 07/13/2014 Attention deficit hyperactivity disorder (ADHD)*02/10/2015 Bilateral low back pain with right-sided sciati*06/02/2015 Right hip pain [M25.551] 06/02/2015 Recurrent major depressive disorder, in partial*09/26/2015 Pain in right hip [M25.551] 10/25/2015 Trochanteric bursitis of both hips [M70.61, M70*10/25/2015 Chronic bilateral low back pain without sciatic*10/25/2015 Trigger little finger of left hand [M65.352] 01/23/2016 Trigger ring finger of left hand [M65.342] 01/23/2016 Trigger middle finger of left hand [M65.332] 01/23/2016 Bilateral hip pain [M25.551, M25.552] 09/20/2016 Greater trochanteric bursitis of both hips [M70*09/20/2016 Status post bariatric surgery [Z98.84] 10/11/2016 Dysuria [R30.0] 11/21/2017 Nonrheumatic aortic valve stenosis [I35.0] 12/19/2018 HTN, goal below 130/80 [I10] 12/19/2018 Prescriptions ordered this encounter Disp Refills Start End FUROSEMIDE 20 MG TABLET 30 t* 0 05/26/2019 Route: ORAL Sig: Take 1 tablet by mouth once daily. as needed for leg sw elling. Medications Discontinued During This Encounter furosemide (LASIX) 20 mg tablet 30 t* 0 03/20/2019 05/26/2019 Route: ORAL Sig: Take 1 tablet by mouth once daily. as needed for leg sw elling. Disc: Reason for discontinue is not on file. Encounter Status:Closed by [facility] BL[facility]MON [facility] Normal 05-11-[address] [place] [facility] SONNY DENNIS ([id number]) 1940 F [place] Date Time Provider Department ([id number]) 05/11/19 JAKE FISH (JANNY) INTMWS During your visit today, we recorded the following informati on about you: Jake Fish APRN.JANNY 05/11/2019 3:58 PM Signed CBC is improved from last check, continue with iron suppleme ntation B12 is acceptable. Metabolic panel shows albumin is improved, continue with pro tein intake. BUN and creatinine show slight elevation , about the same as when last checked. Potassium is a bit increased Would decrease lisinopril to 10 mg once daily (decrease from 10 mg twice daily) Hemoglobin A1c slightly increased from previous at 7% TSH slightly elevated. If feeling fatigued, weight gai n can increase dose of levothyroxine. Route back to me if she would lik e to try an increased dose of levothyorixine. Would recheck BMP in 1-2 weeks, thyroid levels in 6-12 wee ks, orders placed Component Latest Ref Rng AND Units 07/10/2018 07/16/2018201812/05/2018 12/15/2018 05/07/2019 WBC 3.70 - 11.00 k/uL 6.73 7.25 6.47 9.63 5.76 RBC 3.90 - 5.20 m/uL 3.70 (L) 3.42 (L) 3.64 (L) 3.20 (L) 3.5 7 (L) Hemoglobin 11.5 - 15.5 g/dL 11.0 (L) 10.1 (L) 11.2 (L) 9.7 ( L) 10.7 (L) Hematocrit 36.0 - 46.0 % 36.2 33.8 (L) 36.7 32.1 (L) 35.3 (L ) MCV 80.0 - 100.0 fL 97.8 98.8 100.8 (H) 100.3 (H) 98.9 MCH 26.0 - 34.0 pG 29.7 29.5 30.8 30.3 30.0 MCHC 30.5 - 36.0 g/dL 30.4 (L) 29.9 (L) 30.5 30.2 (L) 30.3 ( L) RDW-CV 11.5 - 15.0 % 13.3 13.7 13.2 12.6 14.4 Platelet Count 150 - 400 k/uL 297 334 307 301 342 MPV 9.0 - 12.7 fL 10.4 10.6 10.6 10.7 10.7 Neut% % 62.5 Abs Neut (ANC) 1.45 - 7.50 k/uL 4.18 Lymph% % 23.8 Abs Lymph 1.00 - 4.00 k/uL 1.60 [place]% % 10.8 Abs [place] <0.87 k/uL 0.73 Eosin% % 2.5 Abs Eosin <0.46 k/uL 0.17 Baso% % 0.4 Abs Baso <0.11 k/uL 0.03 Nucleated Reds 0 /100 WBC 0.0 Absolute nRBC <0.01 k/uL <0.01 <0.01 <0.01 <0.01 <0.01 Diff Type Auto Diff Protein, Total 6.3 - 8.0 g/dL 6.4 6.9 Albumin 3.9 - 4.9 g/dL 3.7 (L) 4.3 Calcium 8.5 - 10.2 mg/dL 8.7 9.2 8.7 9.7 Bilirubin, Total 0.2 - 1.3 mg/dL <0.2 (L) 0.2 Alkaline Phosphatase 34 - 123 U/L 80 84 AST 13 - 35 U/L 17 19 Glucose 74 - 99 mg/dL 99 148 (H) 166 (H) 89 BUN 7 - 21 mg/dL 18 19 21 22 (H) Creatinine 0.58 - 0.96 mg/dL 1.02 (H) 0.93 1.23 (H) 1.19 (H) Sodium 136 - 144 mmol/L 137 139 138 136 Potassium 3.7 - 5.1 mmol/L 5.4 (H) 4.9 4.1 5.9 (H) Chloride 97 - 105 mmol/L 98 101 100 98 CO2 22 - 30 mmol/L 24 20 (L) 23 27 Anion Gap 9 - 18 mmol/L 15 18 15 11 ALT 7 - 38 U/L 19 12 13 eGFR- >60 >60 51 53 eGFR-All Other Races . 52 58 42 44 Cholesterol, Total <200 mg/dL 188 135 120 Triglyceride <150 mg/dL 105 90 105 HDL Cholesterol >39 mg/dL 59 56 56 LDL Cholesterol <100 mg/dL 108 (H) 61 43 Non HDL Cholesterol <130 mg/dL 129 79 64 Fasting Time hrs 4 0 12 VLDL Cholesterol <30 mg/dL 21 18 21 TC:HDL Ratio <5.10 3.19 2.41 2.14 LDL:HDL Ratio <2.54 1.83 1.09 0.77 Iron 41 - 186 ug/dL 61 TIBC 232 - 386 ug/dL 285 Transferrin Saturation 15 - 57 % 21 Hemoglobin A1C 4.3 - 5.6 % 6.6 (H) 7.0 (H) Estimated Average Glucose mg/dL 143 154 CRP <0.9 mg/dL 0.1 WSR 0 - 20 mm/hr 16 CK 42 - 196 U/L 92 TSH 0.270 - 4.200 uU/mL 5.690 (H) Free T4 0.9 - 1.7 ng/dL 1.1 Vitamin B12 232 - 1,245 pg/mL >2,000 (H) Magali rCuzjamari NITRATOR OPERATOR 05/11/2019 4:37 PM Signed Patient notified of lab results and recommendations and verb alized understanding. Patient has been feeling very fat igue lately and would like to see if we could increase the levothyroxine to see if that he lps. Jake Fish, MATERIAL CHASER.LAB ASST 05/12/2019 7:36 AM Signed Rx sent Alicia James NITRATOR OPERATOR 05/12/2019 9:10 AM Signed left message on machine rx for thyroid was sent to [facility]. Mauro Romeo Pss 05/12/2019 10:03 AM Signed Patient called back, given information below and was asking if she could pick this information up in a printed form. I advised her since she is driving that if she ever stops by, we can do that for her. She said she is not current with her My Chart. While talking I noticed an issue with her schedule on 06/23/19. She sees Dr. Montenegro in [place] at 10:20 am and then has to be in [place] with Registered Representative, Dr. Iraheta at 11:40 am. She is going to call back or stop by to have Dr. Chester major eduled. Thank you, Mauro Romeo Pss Allergies As of Date: 05/11/2019 Noted Allergy Reaction MACROBID (NITROFURANTOIN MONOHYD/*01/10/2009 8 - GI Upset ADHESIVE TAPE (ROSINS) 03/03/2013 14 - Other: See Comments Comments: redness ATIVAN (LORAZEPAM) 12/27/2015 1 - Mental Status Change BENZODIAZEPINES 12/22/2002 1 - Mental Status Change Comments: ativan--made her loopy while in hospital CIPROFLOXACIN 04/27/2008 9 - Itching Comments: Oral Yeast Infection Thrush DEMEROL (MEPERIDINE HCL) 05/04/2005 LATEX 12/22/2002 2 - Rash Comments: Pt notes is a sensitivity, not allergy SULFA (SULFONAMIDE ANTIBIOTICS) 12/22/2002 14 - Other: See C amina Comments: Patient was treated for UTI in October 2011 after told nurse that reaction was just yeast infection (not vomiting as was previously listed) XANTHINES 12/22/2002 Comments: darvon Date Reviewed: 05/07/2019 Reviewed by: Magali Choudhury LPN - Fully Assessed Reason for Visit: Results [95] Primary Visit Diagnosis:Elevated TSH [R79.89] Other Visit Diagnoses:Hyperkalemia [E87.5] Elevated serum creatinine [R79.89] Order(s):lisinopril (ZESTRIL, PRINIVIL) 10 mg tabletTake 1 t ablet by mouth once daily. As directed ID# [id number]: Rfl: BASIC METABOLIC PNL [SQBMP] Order #: [id number] FUTURE TSH BLD [SQTSH] Order #: [id number] FUTURE T4 FREE/FREE THYROX [SQFT4] Order #: [id number] FUTURE levothyroxine (SYNTHROID) 50 mcg tabletTake 1 tablet by mout h daily before breakfast. ID# [id number]: 30 tabletRfl: 5 Prescriptions as of 05/11/2019 Sig: LEVOTHYROXINE 50 MCG TABLET Take 1 tablet by mouth daily * LISINOPRIL 10 MG TABLET Take 1 tablet by mouth once d* CALCIUM 600 ORAL Take by mouth. VITAMIN E 400 UNIT CAPSULE Take 400 Units by mouth once * CYANOCOBALAMIN (VIT B-12) 500* Take by mouth once daily. CRANBERRY EXTRACT 200 MG CAPS* Take 800 mg by mouth. HYDROCODONE 5 MG-ACETAMINOPHE* Take 0.5-1 tablets by mouth t * FAMOTIDINE 20 MG TABLET Take 1 tablet by mouth twice * Patient not taking: Reported on 05/07/2019 BLOOD SUGAR DIAGNOSTIC STRIPS Test blood sugar(s) 1 times d* GLIMEPIRIDE 1 MG TABLET Take 1 tablet by mouth daily * FUROSEMIDE 20 MG TABLET Take 1 tablet by mouth once d* VITS,CALCIUM 21-IRON* Take by mouth. Pt is taking 2 * CYANOCOBALAMIN (VIT B-12) 1,0* 1 mL IM every 3 weeks BUPROPION XL 150 MG TAB Take 1 tablet by mouth once d* ATORVASTATIN 20 MG TABLET Take 1 tablet by mouth once d* GABAPENTIN 300 MG CAPSULE Take 2 capsules by mouth twic* METFORMIN 850 MG TABLET Take 1 tablet by mouth twice * CYCLOBENZAPRINE 10 MG TABLET Take 1 tablet by mouth daily * MIRTAZAPINE 15 MG TABLET Take 1 tablet by mouth daily * POTASSIUM CHLORIDE ER 10 MEQ * Take 1 capsule by mouth once * Patient not taking: Reported on 09/04/2018 BLOOD-GLUCOSE METER KIT Glucose Meter of Choice - Kit* LANCETS Test blood sugar(s) 1 times d* BLOOD-GLUCOSE METER KIT Glucose Meter of Choice, insu* BLOOD SUGAR DIAGNOSTIC STRIPS Test blood sugar(s) 1x daily.* PAROXETINE 10 MG TABLET Take 1 tablet by mouth once d* BD LUER-MARLIN SYRINGE 3 ML 23 X* USE FOR B-12 INJECTIONS EVERY * MULTIVITAMIN CAPSULE Take 1 capsule by mouth once * Patient not taking: Reported on 12/09/2018 CHOLECALCIFEROL (VITAMIN D3) * Take 2 tablets by mouth once * MELATONIN 10 MG TABLET Take 10 mg by mouth daily at * ACYCLOVIR 5 % TOPICAL OINTMENT Apply 6 times daily for 7 day * LANCETS Use as instructed Problem List As Of Date 05/11/2019 Noted Resolved ROTATOR CUFF SYND NOS [M71.9, M67.919] 12/22/2002 Lateral epicondylitis of elbow [M77.10] 12/22/2002 0 JOINT PAIN-UP/ARM [M25.529] 02/02/2003 TRIGGER FINGER [M65.30] 03/30/2003 More... Follow-up examination following surgery [V67.0] 07/18/2004 1 Other tenosynovitis of hand and wrist [M65.849,*05/01/2005 1 Hyperlipidemia [E78.5] More... Iron deficiency anemia [D50.9] More... PERNICIOUS ANEMIA [D51.0] More... More... More... Diabetes mellitus type 2, controlled, without c*05/07/2005 More... Pain in soft tissues of limb [M79.609] 05/15/2005 04/18/2010 INSOMNIA NOS [G47.00] 07/25/2005 More... OSTEOPENIA [M89.9, M94.9] 10/23/2005 More... PEPTIC ULCER NOS [K27.9] 10/23/2005 Unspecified ventral hernia without mention of o*10/23/2005 1 DIVERTICULOSIS OF COLON W/O BLEED [K57.30] 10/23/2005 IRRITABLE COLON [K58.9] 11/28/2005 Abdominal pain, right upper quadrant [R10.11] 04/05/2006 RECURRENT UTI's [N39.0] 03/22/2008 04/18/2010 Fibromyalgia [M79.7] 06/29/2008 More... Abdominal pain, other specified site [R10.9] 06/29/200803/31 HEMORRHOIDS NOS [K64.9] 06/29/2008 DISLOC DIST RADIOULN-CLOSE [S63.016A] 07/13/2008 Abdominal pain, generalized [R10.84] 10/29/2008 04/18/2010 PULMONARY NODULE [R22.2] 01/17/2009 More... ATROPHIC VAGINITIS [N95.2] 01/17/2009 FELIPE (Generalized Anxiety Disorder) [F41.1] 03/20/2010 Cervicalgia [M54.2] 05/22/2010 Other physical therapy [[id number]] 06/21/2010 01/06/2016 Other specified disorder of bladder [596.8] 07/25/201001/05 Recurrent UTI [N39.0] 07/03/2011 01/06/2016 Polypharmacy [Z79.899] 07/03/2011 Abnormality of urethral meatus [Q64.70] 07/16/2011 Generalized abdominal pain [R10.84] 07/16/2011 Urinary retention [R33.9] 07/16/2011 Hypothyroidism [E03.9] 01/07/2012 Urgency of urination [R39.15] 03/19/2012 Urge incontinence [N39.41] 03/19/2012 Trigger index finger of right hand [M65.321] 12/25/2012 DJD (degenerative joint disease) [M19.90] Marital conflict [Z63.0] 03/15/2014 Vitamin D deficiency [E55.9] 07/13/2014 Attention deficit hyperactivity disorder (ADHD)*02/10/2015 Bilateral low back pain with right-sided sciati*06/02/2015 Right hip pain [M25.551] 06/02/2015 Recurrent major depressive disorder, in partial*09/26/2015 Pain in right hip [M25.551] 10/25/2015 Trochanteric bursitis of both hips [M70.61, M70*10/25/2015 Chronic bilateral low back pain without sciatic*10/25/2015 Trigger little finger of left hand [M65.352] 01/23/2016 Trigger ring finger of left hand [M65.342] 01/23/2016 Trigger middle finger of left hand [M65.332] 01/23/2016 Bilateral hip pain [M25.551, M25.552] 09/20/2016 Greater trochanteric bursitis of both hips [M70*09/20/2016 Status post bariatric surgery [Z98.84] 10/11/2016 Dysuria [R30.0] 11/21/2017 Nonrheumatic aortic valve stenosis [I35.0] 12/19/2018 HTN, goal below 130/80 [I10] 12/19/2018 Prescriptions ordered this encounter Disp Refills Start End LISINOPRIL 10 MG TABLET 05/11/2019 Class: Med Update Route: ORAL Sig: Take 1 tablet by mouth once daily. As directed ID# [id number] LEVOTHYROXINE 50 MCG TABLET 30 t* 5 05/12/2019 Route: ORAL Sig: Take 1 tablet by mouth daily before breakfast. ID# [id number] Medications Discontinued During This Encounter lisinopril (ZESTRIL, PRINIVIL) 10 mg* 180 * 3 07/22/201805/01 Class: [employer] [facility] Delivery Route: ORAL Sig: Take 1 tablet by mouth twice daily. As directed ID# [id number] Disc: Reason for discontinue is not on file. levothyroxine (SYNTHROID) 25 mcg tab* 90 t* 4 03/26/201905/01 Route: ORAL Sig: Take 1 tablet by mouth daily before breakfast. ID# [id number] Disc: Reason for discontinue is not on file. Encounter Status:Closed by JAKE BLACKMON on 05/12/19 vitamin b12 on 2018 Cobalamin (Vitamin B12) >2000 232-1245 pg/mL High 2018 [facility] [Mass/Vol] [place] ([id number]) Comment: Performed By: #### CBC, LIPB , B12, HBA1C, CMP, FT4, TSH ####[facility] [id number] [place], [place] [phone] tsh on 2019-05-07 TSH Qn 5.690 0.270-4.200 uU/mL High 05-07-2019 [facility] ([id number]) Comment: Performed By: #### CBC, LIPB , B12, HBA1C, CMP, FT4, TSH ####[facility] [id number] [place], [place] [phone] progress on 2019-05 PROGRESS HNO ID: [id number] Normal 05-07-2019 [facility] Author: Jake (Chief Of [employer] Patrol) [facility] ([id number]) Service: ? Author Type: Nurse Specialist Type: Progress Notes Filed: 05/07/2019 10:31 AM Note Text: This note was created using NoteWriter. Subjective Sonny Dennis is a 79 year old female. HPI She is s/p lumbar fusion 01/05/[address] Florencio Ibrahim [facility], feels she is doing better following surgery. Has seen Dr. Iraheta for follow up of aortic stenosis. Ms. Prasad fierro indicates that she is without headache, chest pain, palpitat ions, dyspnea, peripheral edema, orthopnea, fatigue and PND. DIABETES MELLITUS without excessive thirst or increased freq uency of urination, chest pain or dyspnea , numbness, tingling or yenny n in extremities, new or unusual visual symptoms, low sugar/hypog lycemic reactions, weight loss/gain, lightheadedness/dizziness and b owel changes/loose stools. Patient's last HgA1C was Hemoglobin A1C (%) Date Value 10/24/2018 6.6 02/18/2018 7.1 Hypothyroidism. She is doing well on her current dose of Syn throid. Denies fatigue, cold intolerance, constipation and swelling in feet. TSH (uU/mL) Date Value 06/02/2018 1.730 03/07/2017 1.840 HTN: Last 14 Encounter BP Readings: Date: BP: 05/07/2019 106/60 04/16/2019 128/60 12/19/2018 112/58 12/12/2018 122/60 12/09/2018 116/62 11/27/2018 112/62 11/17/2018 122/68 10/24/2018 130/70 09/04/2018 134/64 06/03/2018 138/70 05/20/2018 130/72 02/20/2018 136/70 01/02/2018 90/60 12/03/2017 130/80 Mood seems good, stable, no voiced concerns. Reports taking gabapentin and hydrocodone for back pain, chr onic. Has had injections which have helped somewhat. Review of Systems Constitutional: Negative. Respiratory: Negative. Cardiovascular: Negative. Musculoskeletal: Positive for back pain. Objective BP 106/60 (BP Site: Right Arm, BP Position: Sitting, BP Cuff Size: Regular Adult) Pulse 92 Resp 16 Wt 54 kg (119 lb) BMI 22.12 kg/m? Physical Exam Constitutional: She is oriented to person, place, and time. She appears well-developed and well-nourished. No distress. HENT: Head: Normocephalic and atraumatic. Eyes: Conjunctivae are normal. Right eye exhibits no dischar ge. Left eye exhibits no discharge. No scleral icterus. Neck: No JVD present. No thyromegaly present. Cardiovascular: Normal rate, regular rhythm and intact dista l pulses. Exam reveals no gallop and no friction rub. Murmur (3/6 at base and apex, best heard at base) heard. Pulmonary/Chest: Effort normal and breath sounds normal. No stridor. No respiratory distress. She has no wheezes. Abdominal: Soft. Bowel sounds are normal. She exhibits no di stension. There is no tenderness. There is no guarding. Musculoskeletal: She exhibits no edema. Neurological: She is alert and oriented to person, place, an d time. Skin: Skin is warm and dry. She is not diaphoretic. Psychiatric: She has a normal mood and affect. Nursing note and vitals reviewed. Component Latest Ref Rng AND Units 07/10/2018 07/16/2018201812/05/2018 WBC 3.70 - 11.00 k/uL 6.73 7.25 6.47 RBC 3.90 - 5.20 m/uL 3.70 (L) 3.42 (L) 3.64 (L) Hemoglobin 11.5 - 15.5 g/dL 11.0 (L) 10.1 (L) 11.2 (L) Hematocrit 36.0 - 46.0 % 36.2 33.8 (L) 36.7 MCV 80.0 - 100.0 fL 97.8 98.8 100.8 (H) MCH 26.0 - 34.0 pG 29.7 29.5 30.8 MCHC 30.5 - 36.0 g/dL 30.4 (L) 29.9 (L) 30.5 RDW-CV 11.5 - 15.0 % 13.3 13.7 13.2 Platelet Count 150 - 400 k/uL 297 334 307 MPV 9.0 - 12.7 fL 10.4 10.6 10.6 Neut% % 62.5 Abs Neut (ANC) 1.45 - 7.50 k/uL 4.18 Lymph% % 23.8 Abs Lymph 1.00 - 4.00 k/uL 1.60 [place]% % 10.8 Abs [place] <0.87 k/uL 0.73 Eosin% % 2.5 Abs Eosin <0.46 k/uL 0.17 Baso% % 0.4 Abs Baso <0.11 k/uL 0.03 Nucleated Reds 0 /100 WBC 0.0 Absolute nRBC <0.01 k/uL <0.01 <0.01 <0.01 Diff Type Auto Diff Glucose 74 - 99 mg/dL 99 148 (H) BUN 7 - 21 mg/dL 18 19 Creatinine 0.58 - 0.96 mg/dL 1.02 (H) 0.93 Sodium 136 - 144 mmol/L 137 139 Potassium 3.7 - 5.1 mmol/L 5.4 (H) 4.9 Chloride 97 - 105 mmol/L 98 101 CO2 22 - 30 mmol/L 24 20 (L) Anion Gap 9 - 18 mmol/L 15 18 Calcium 8.5 - 10.2 mg/dL 8.7 9.2 eGFR- >60 >60 eGFR-All Other Races . 52 58 Cholesterol, Total <200 mg/dL 188 135 Triglyceride <150 mg/dL 105 90 HDL Cholesterol >39 mg/dL 59 56 LDL Cholesterol <100 mg/dL 108 (H) 61 Non HDL Cholesterol <130 mg/dL 129 79 Fasting Time hrs 4 0 VLDL Cholesterol <30 mg/dL 21 18 TC:HDL Ratio <5.10 3.19 2.41 LDL:HDL Ratio <2.54 1.83 1.09 Iron 41 - 186 ug/dL 61 TIBC 232 - 386 ug/dL 285 Transferrin Saturation 15 - 57 % 21 Hemoglobin A1C 4.3 - 5.6 % 6.6 (H) Estimated Average Glucose mg/dL 143 CRP <0.9 mg/dL 0.1 WSR 0 - 20 mm/hr 16 ALT 7 - 38 U/L 19 CK 42 - 196 U/L 92 Component Latest Ref Rng AND Units 01/04/2016 05/21/2016201602/15/2017 08/19/2017 02/18/2018 10/24/2018 Hemoglobin A1C 4.3 - 5.6 % 7.3 (H) 7.8 (H) 7.0 (H) 7.0 (H) 7 .0 (H) 7.1 (H) 6.6 (H) Estimated Average Glucose mg/dL 163 177 154 154 154 157 143 Component Latest Ref Rng AND Units 02/15/2017 08/19/2017201812/05/2018 Triglyceride <150 mg/dL 67 80 105 90 Cholesterol, Total <200 mg/dL 208 (H) 179 188 135 HDL Cholesterol >39 mg/dL 84 62 59 56 VLDL Cholesterol <30 mg/dL 13 16 21 18 LDL Cholesterol <100 mg/dL 111 101 (H) 108 (H) 61 Fasting Time hrs 14 12 4 0 TC:HDL Ratio <5.10 2.48 2.89 3.19 2.41 LDL:HDL Ratio <2.54 1.32 1.63 1.83 1.09 Non HDL Cholesterol <130 mg/dL 124 117 129 79 ALLERGIES Allergen Reactions - Macrobid [Nitrofura* GI Upset - Adhesive Tape (Lisa* Other: See Comments redness - Ativan [Lorazepam] Mental Status Change - Benzodiazepines Mental Status Change ativan--made her loopy while in hospital - Ciprofloxacin Itching Oral Yeast Infection Thrush - Demerol [Meperidine* - Latex Rash Pt notes is a sensitivity, not allergy - Sulfa (Sulfonamide * Other: See Comments Patient was treated for UTI in October 2011 after told nurse gregorio t reaction was just yeast infection (not vomiting as was previously lis rod) - Xanthines darvon Current Outpatient Medications: calcium carbonate (CALCIUM 600 ORAL) Take by mouth. Vitamin E, dl, acetate, (VITAMIN E) 400 unit capsule Take 40 0 Units by mouth once daily. cyanocobalamin (VITAMIN B-12) 500 mcg tab tab(s) Take by angela th once daily. Cranberry Extract 200 mg cap Take 800 mg by mouth. HYDROcodone-acetaminophen (NORCO) 5-325 mg per tablet Take 0 .5-1 tablets by mouth twice daily as needed for up to 60 days. blood sugar diagnostic (BLOOD GLUCOSE TEST) test strip Test blood sugar(s) 1 times daily. Dx: Type 2 DM - Controlled E11.9 Insulin: No levothyroxine (SYNTHROID) 25 mcg tablet Take 1 tablet by angela th daily before breakfast. ID# [id number] glimepiride (AMARYL) 1 mg tablet Take 1 tablet by mouth miriam y with breakfast. ID# [id number] furosemide (LASIX) 20 mg tablet Take 1 tablet by mouth once daily. as needed for leg swelling. PNV Cmb#25-Qyok-Vccea Acid ( COMPLETE) 14 mg iron- 4 00 mcg tab Take by mouth. Pt is taking 2 tablets daily cyanocobalamin 1,000 mcg/mL soln 1 mL IM every 3 weeks buPROPion XL (WELLBUTRIN XL) 150 mg 24 hr tablet Take 1 tabl et by mouth once daily. ID# [id number] atorvastatin (LIPITOR) 20 mg tablet Take 1 tablet by mouth o nce daily. gabapentin (NEURONTIN) 300 mg capsule Take 2 capsules by angela th twice daily for 180 days. ID# [id number] metFORMIN (GLUCOPHAGE) 850 mg tablet Take 1 tablet by mouth twice daily with meals. ID# [id number] cyclobenzaprine (FLEXERIL) 10 mg tablet Take 1 tablet by angela th daily at bedtime. ID# [id number] lisinopril (ZESTRIL, PRINIVIL) 10 mg tablet Take 1 tablet by mouth twice daily. As directed ID# [id number] mirtazapine (REMERON) 15 mg tablet Take 1 tablet by mouth da eb at bedtime. ID# [id number] Blood-Glucose Meter monitoring kit Glucose Meter of Choice - Kit - Dx: Type 2 DM - Controlled E11.9 Test blood sugar 1 time daily. Lancets lancets Test blood sugar(s) 1 times daily. Dx: Type 2 DM - Controlled E11.9 Insulin: No Blood-Glucose Meter monitoring kit Glucose Meter of Choice, insurance preferred - Kit - Dx: Type 2 DM - Controlled E11.9 blood sugar diagnostic (BLOOD GLUCOSE TEST) test strip Test blood sugar(s) 1x daily. Dx: Controlled DM type 2. Insulin: No PARoxetine (PAXIL) 10 mg tablet Take 1 tablet by mouth once daily. ID# [id number] LUER-MARLIN SYRINGE 3 mL 23 x 1 syrg USE FOR B-12 INJECTION S EVERY 3 WEEKS OR DIRECTED cholecalciferol (VITAMIN D) 1,000 unit tab tablet Take 2 tab lets by mouth once daily. melatonin 10 mg tab Take 10 mg by mouth daily at bedtime. acyclovir (ZOVIRAX) 5 % ointment Apply 6 times daily for 7 d ays for cold sores Lancets (ACCU-CHEK MULTICLIX LANCET) Misc lancets Use as ins tructed famotidine (PEPCID) 20 mg tablet Take 1 tablet by mouth twic e daily. (Patient not taking: Reported on 05/07/2019 ) potassium chloride SR (MICRO-K) 10 mEq CR capsule Take 1 cap emily by mouth once daily. once daily for three days then once daily when t aking furosemide. (Patient not taking: Reported on 09/04/2018 ) Multivitamin capsule Take 1 capsule by mouth once daily. (Arcenio miles not taking: Reported on 12/09/2018 ) No current facility-administered medications for this visit. Assessment and Plan 1. Essential hypertension - ICD9: 401.9, ICD10: I10 (primary diagnosis) - good control - Continue current medication(s) - Encouraged dietary sodium restriction/DASH diet - Recommended regular aerobic exercise. - Goal of BP <130/80 2. Chronic bilateral low back pain with bilateral sciatica - ICD9: 724.2, 724.3, 338.29, ICD10: M54.42, M54.41, G89.29 s/p fusion with decreased pain 3. Controlled type 2 diabetes mellitus without complication, without long-term current use of insulin (HCC) - ICD9: 250.00, ICD10 : E11.9 Controlled. - Continue current medications - HGB A1C - COMP METABOLIC PANEL - CBC - LIPID PANEL BASIC - ALBUMIN/CREAT RATIO RND UR 4. Hyperlipidemia, unspecified hyperlipidemia type - ICD9: 2 72.4, ICD10: E78.5 - COMP METABOLIC PANEL - LIPID PANEL BASIC 5. Iron deficiency anemia, unspecified iron deficiency anemi a type - ICD9: 280.9, ICD10: D50.9 - CBC 6. Acquired hypothyroidism - ICD9: 244.9, ICD10: E03.9 - Instructed patient on importance of taking on an empty sto mach either first thing in the morning or at bedtime. Stable - COMP METABOLIC PANEL 7. Pernicious anemia - ICD9: 281.0, ICD10: D51.0 - VITAMIN B12 BLOOD 8. Folate deficiency - ICD9: 266.2, ICD10: E53.8 9. TSH (thyroid-stimulating hormone deficiency) - ICD9: 244. 8, ICD10: E03.8 - TSH BLD - T4 FREE/FREE THYROX 10. Nonrheumatic aortic valve stenosis - ICD9: 424.1, ICD10: I35.[address] Iraheta, NO current CP, syncope or other ca rdiac complaints Jake Fish, NBA.LAB ASST lipid panel, basic on 2019-05-07 Cholesterol [Mass/Vol] 120 <200 mg/dL Normal 019 [facility] ([id number]) Comment: Result Comment: <200 mg/dL, Desirable 200-239 mg/dL, Borderline hi gh >239 mg/dL, High Performed By: #### CBC, LIPB , B12, HBA1C, CMP, FT4, TSH ####[facility] [address] [place], [place] [phone] Cholesterol in HDL 56 >39 mg/dL Normal 05-07-2019 [facility] [Mass/Vol] ([id number]) Comment: Result Comment: 40-59 mg/dL, Acceptable >59 mg/dL, High: Negative ri sk factor for coronary heart disease <40 mg/dL, Low: Positive ris k factor for coronary heart disease Performed By: #### CBC, LIPB , B12, HBA1C, CMP, FT4, TSH ####[facility] [address] [place], [place] [phone] Cholesterol in LDL 43 <100 mg/dL Normal 05-07-2019 [facility] [Mass/Vol] [place] ([address]183) Comment: Result Comment: <100 mg/dL, Optimal 100-129 mg/dL, Near optimal/ above optimal 130-159 mg/dL, Borderline hi gh 160-189 mg/dL, High >189 mg/dL, Very high Secondary prevention optimal LDL Cholesterol levels are recommended to be < 70 mg/dL Performed By: #### CBC, LIPB , B12, HBA1C, CMP, FT4, TSH ####[facility] [place], [place] [phone] Fasting Time 12 hrs Normal 05-07-2019 [facility] ([id number]) Comment: Performed By: #### CBC, LIPB , B12, HBA1C, CMP, FT4, TSH ####[place] [address] [address], [place] [phone] LDL:HDL Ratio 0.77 <2.54 Normal 05-07-2019 [facility] (25197) Comment: Result Comment: Reference: 1. National Cholesterol Educ ation Program ATP III Guideline At-A-Glance Quick Desk Reference: National Heart, Lung, and Blood [place]. National Institutes of Health. 2001: NIH Publication No. 01-3305. 2. An International Atherosc lerosis Society position paper: global recommendations for the management of dyslipidemia: executive summary, Atherosclerosis. 2014: 232(2):410-413. Performed By: #### CBC, LIPB , B12, HBA1C, CMP, FT4, TSH ####[place] [address] [address], [place] [phone] Non HDL Cholesterol 64 <130 mg/dL Normal 05-07-2019 [facility] ([id number]) Comment: Result Comment: <130 mg/dL, Optimal 130-159 mg/dL, Near optimal/ above optimal 160-189 mg/dL, Borderline hi gh 190-219 mg/dL, High >219 mg/dL, Very high Secondary prevention optimal non HDL Cholesterol levels are recommended to be < 100 mg/dL Performed By: #### CBC, LIPB , B12, HBA1C, CMP, FT4, TSH ####[place] [address] [place], [place] [phone] TC:HDL Ratio 2.14 <5.10 Normal 05-07-2019 [facility] (80173) Comment: Performed By: #### CBC, LIPB , B12, HBA1C, CMP, FT4, TSH ####[place] [address] [place], [place] [phone] Triglyceride [Mass/Vol] 105 <150 mg/dL Normal 2018 [facility] (01225) Comment: Result Comment: <150 mg/dL, Normal 150-199 mg/dL, Borderline hi gh 200-499 mg/dL, High >499 mg/dL, Very high Performed By: #### CBC, LIPB , B12, HBA1C, CMP, FT4, TSH ####[place] [address] [place], [place] [phone] VLDL Cholesterol 21 <30 mg/dL Normal 05-07-2019 [facility] ([id number]) Comment: Performed By: #### CBC, LIPB , B12, HBA1C, CMP, FT4, TSH ####[place] [address] [place], [place] [phone] hemoglobin a1c on HbA1c (Bld) [Mass fraction] 154 mg/dL Normal [facility] (57659) Comment: Result Comment: eAG: (Estima rod average glucose) is a calculated value from HgbA1c and is training representative of the average blood glucose level in the last 2-3 month period. Performed By: #### CBC, LIPB , B12, HBA1C, CMP, FT4, TSH ####[place] [address] [place], [place] [phone] HbA1c (Bld) [Mass fraction] 7.0 4.3-5.6 % High [facility] (75573) Comment: Result Comment: [place] Jessica betes Association guidelines indicate that patients with HgbA1c in the range 5.7-6.4% are at increased risk for development of diabetes, and intervention by lifestyle modification may be beneficial. HgbA1c greater o r equal to 6.5% is considered diagnostic of diabetes. Performed By: #### CBC, LIPB , B12, HBA1C, CMP, FT4, TSH ####[place] [address] [place] [phone] free t4 on Free T4 [Mass/Vol] 1.1 0.9-1.7 ng/dL Normal 05-07-2019 [facility] ([id number]) Comment: Performed By: #### CBC, LIPB , B12, HBA1C, CMP, FT4, TSH ####[place] [address] [place] [phone] comp metabolic panel on 2019-05-07 Albumin [Mass/Vol] 4.3 3.9-4.9 g/dL Normal 05-07-2019 [facility] (47032) Comment: Performed By: #### CBC, LIPB , B12, HBA1C, CMP, FT4, TSH ####[place] [address] [place] [phone] ALP [Catalytic activity/Vol] 84 34-123 U/L Normal 1 07-07-2018 [facility] (36172) Comment: Performed By: #### CBC, LIPB , B12, HBA1C, CMP, FT4, TSH ####[place] [address] [place], [place] [phone] ALT [Catalytic activity/Vol] 13 7-38 U/L Normal 1 07-07-2018 [facility] (93705) Comment: Performed By: #### CBC, LIPB , B12, HBA1C, CMP, FT4, TSH ####[place] [address] [place], [place] [phone] Anion gap [Moles/Vol] 11 9-18 mmol/L Normal 05-07-20 [facility] (50476) Comment: Performed By: #### CBC, LIPB , B12, HBA1C, CMP, FT4, TSH ####[place] [address] [place], [place] [phone] AST [Catalytic activity/Vol] 19 13-35 U/L Normal 1 07-07-2018 [facility] (35411) Comment: Performed By: #### CBC, LIPB , B12, HBA1C, CMP, FT4, TSH ####[facility] [place], [place] [phone] Bilirubin [Mass/Vol] 0.2 0.2-1.3 mg/dL Normal 9 [facility] (43042) Comment: Performed By: #### CBC, LIPB , B12, HBA1C, CMP, FT4, TSH ####[place] [address] [place], [place] [phone] Calcium [Mass/Vol] 9.7 8.5-10.2 mg/dL Normal 05-07-2019 [facility] (69698) Comment: Performed By: #### CBC, LIPB , B12, HBA1C, CMP, FT4, TSH ####[place] [address] [place], [place] [phone] Chloride [Moles/Vol] 98 97-105 mmol/L Normal 9 [facility] (26232) Comment: Performed By: #### CBC, LIPB , B12, HBA1C, CMP, FT4, TSH ####[place] [address] [place], [place] [phone] CO2 [Moles/Vol] 27 22-30 mmol/L Normal 05-07-2019 [facility] (52287) Comment: Performed By: #### CBC, LIPB , B12, HBA1C, CMP, FT4, TSH ####[place] [address] [place], [place] [phone] Creatinine [Mass/Vol] 1.19 0.58-0.96 mg/dL High 05-07-20 [facility] (11593) Comment: Performed By: #### CBC, LIPB , B12, HBA1C, CMP, FT4, TSH ####[place] [address] [place], [place] [phone] eGFR- Amer. 53 Normal 05-07-2019 [facility] (14937) Comment: Performed By: #### CBC, LIPB , B12, HBA1C, CMP, FT4, TSH ####[facility] [address], [place] [phone] GFR/1.73 sq M predicted among 44 . Normal 05-07-2019 [facility] non-blacks MDRD (S/P/Bld) [Vol (26029) rate/Area] Comment: Result Comment: eGFR (Estima rod GFR) Units of measure: mL/min/1.73 meters squared eGFR is derived from the ree xpressed MDRD Study equation using the following parameters: serum creatinine, age, gender and race. The creatinine assay has been calibrated to be traceable to IDMS. An eGFR <60 mL/min/1.73m2 fo r >3 months is consistent with chronic kidney disease. Refer to KDOQI guidelines for clinical interpretation. In patients with unstable re nal function, e.g. those with acute kidney injury, the eGFR may not accurately reflect actual GFR. Performed By: #### CBC, LIPB , B12, HBA1C, CMP, FT4, TSH ####[facility] [address] [place], [place] [phone] Glucose [Mass/Vol] 89 74-99 mg/dL Normal 05-07-2019 [facility] (74954) Comment: Result Comment: The [place] Diabetes Association (ADA) provides guidance for cutoff values for fasting glucose and random glucose. The ADA defines fasting as no caloric intake for at least 8 hours. Fas ting plasma glucose results between 100 to 125 mg/dL indicate increased risk for diabetes (prediabetes). Fasting plasma glucose resul ts greater than or equal to 126 mg/dL meet the criteria for diagnosis of diabetes. In the absence of unequivocal hyperglycemia, results should be confirmed by repeat testing. In a patient with classic s ymptoms of hyperglycemia or hyperglycemic crisis, random plasma glucose results greater than or equal to 200 mg/dL meet the criteria for diagnosis of diabetes. Reference: Standards of [facility] Care in Diabetes 2016, [place] Diabetes Association. Diabetes Care. 2016.39(Suppl 1). Performed By: #### CBC, LIPB , B12, HBA1C, CMP, FT4, TSH ####[place] [address] [place], [place] [phone] Potassium [Moles/Vol] 5.9 3.7-5.1 mmol/L High 05-07-20 [facility] (99195) Comment: Performed By: #### CBC, LIPB , B12, HBA1C, CMP, FT4, TSH ####[address] [place], [place] [phone] Protein [Mass/Vol] 6.9 6.3-8.0 g/dL Normal 05-07-2019 [facility] (06606) Comment: Performed By: #### CBC, LIPB , B12, HBA1C, CMP, FT4, TSH ####[address] [phone] Sodium [Moles/Vol] 136 136-144 mmol/L Normal 05-07-2019 [facility] (67139) Comment: Performed By: #### CBC, LIPB , B12, HBA1C, CMP, FT4, TSH ####[address], [place] [phone] Urea nitrogen [Mass/Vol] 22 7-21 mg/dL High 05-07 [facility] (35379) Comment: Performed By: #### CBC, LIPB , B12, HBA1C, CMP, FT4, TSH ####[address], [place] [phone] cnov on 2019-05-07 CNOV Office Visit (INTMWS) Normal 05-07-[address] [place] [address] [facility] SONNY DENNIS ([id number]) 1940 [facility] Date Time Provider Department ([id number]) 05/07/19 9:40 AM JAKE FISH (JANNY) INTMWS During your visit today, we recorded the following informati on about you: Pulse Respiration Blood pressure Weight 92/minute 16/minute 106/60 54 kg Jake Fish APRN.CNS 05/07/2019 10:31 AM Signed This note was created using NoteWriter. Subjective Sonny Dennis is a 79 year old female. HPI She is s/p lumbar fusion 01/05/[address] Florencio Ibrahim [facility], feels she is doing better following surgery. Has seen Dr. Iraheta for follow up of aortic stenosis. Agueda Dennis indicates that she is without headache, chest pain, palpitations, dy spnea, peripheral edema, orthopnea, fatigue and PND. DIABETES MELLITUS without ex cessive thirst or increased frequency of urination, chest pain or dyspnea , numbness, tingling or pain in extrem ities, new or unusual visual symptoms, low sugar/hypoglycemic reacti ons, weight loss/gain, lightheadedness/dizziness and bowel changes/loose stools. Arcenio miles's last HgA1C was Hemoglobin A1C (%) Date Value 10/24/2018 6.6 02/18/2018 7.1 Hypothyroidism. She is doing well on her current dose of Syn throid. Denies fatigue, cold intolerance, constipation and swelling in feet . TSH (uU/mL) Date Value 06/02/2018 1.730 03/07/2017 1.840 HTN: Last 14 Encounter BP Readings: Date: BP: 05/07/2019 106/60 04/16/2019 128/60 12/19/2018 112/58 12/12/2018 122/60 12/09/2018 116/62 11/27/2018 112/62 11/17/2018 122/68 10/24/2018 130/70 09/04/2018 134/64 06/03/2018 138/70 05/20/2018 130/72 02/20/2018 136/70 01/02/2018 90/60 12/03/2017 130/80 Mood seems good, stable, no voiced concerns. Reports taking gabapentin and hydrocodone for back pain, chr onic. Has had injections which have helped somewhat. Review of Systems Constitutional: Negative. Respiratory: Negative. Cardiovascular: Negative. Musculoskeletal: Positive for back pain. Objective BP 106/60 (BP Site: Right Arm, BP Position: Sitting, BP Cuff Size: Regular Adult) Pulse 92 Resp 16 Wt 54 kg (119 lb) BMI 22.12 kg/m? Physical Exam Constitutional: She is oriented to person, place, and time. She appears well-developed and well-nourished. No distress. HENT: Head: Normocephalic and atraumatic. Eyes: Conjunctivae are normal. Right eye exhibits no dischar ge. Left eye exhibits no discharge. No scleral icterus. Neck: No JVD present. No thyromegaly present. Cardiovascular: Normal rate, regular rhythm and intact dista l pulses. Exam reveals no gallop and no friction rub. Murmur (3/6 at base and apex, best heard at base) heard. Pulmonary/Chest: Effort normal and breath sounds normal. No stridor. No respiratory distress. She has no wheezes. Abdominal: Soft. Bowel sounds are normal . She exhibits no distension. There is no tenderness. There is no guarding. Musculoskeletal: She exhibits no edema. Neurological: She is alert and oriented to person, place, an d time. Skin: Skin is warm and dry. She is not diaphoretic. Psychiatric: She has a normal mood and affect. Nursing note and vitals reviewed. Component Latest Ref Rng AND Units 07/10/2018 07/16/2018201812/05/2018 WBC 3.70 - 11.00 k/uL 6.73 7.25 6.47 RBC 3.90 - 5.20 m/uL 3.70 (L) 3.42 (L) 3.64 (L) Hemoglobin 11.5 - 15.5 g/dL 11.0 (L) 10.1 (L) 11.2 (L) Hematocrit 36.0 - 46.0 % 36.2 33.8 (L) 36.7 MCV 80.0 - 100.0 fL 97.8 98.8 100.8 (H) MCH 26.0 - 34.0 pG 29.7 29.5 30.8 MCHC 30.5 - 36.0 g/dL 30.4 (L) 29.9 (L) 30.5 RDW-CV 11.5 - 15.0 % 13.3 13.7 13.2 Platelet Count 150 - 400 k/uL 297 334 307 MPV 9.0 - 12.7 fL 10.4 10.6 10.6 Neut% % 62.5 Abs Neut (ANC) 1.45 - 7.50 k/uL 4.18 Lymph% % 23.8 Abs Lymph 1.00 - 4.00 k/uL 1.60 [place]% % 10.8 Abs [place] <0.87 k/uL 0.73 Eosin% % 2.5 Abs Eosin <0.46 k/uL 0.17 Baso% % 0.4 Abs Baso <0.11 k/uL 0.03 Nucleated Reds 0 /100 WBC 0.0 Absolute nRBC <0.01 k/uL <0.01 <0.01 <0.01 Diff Type Auto Diff Glucose 74 - 99 mg/dL 99 148 (H) BUN 7 - 21 mg/dL 18 19 Creatinine 0.58 - 0.96 mg/dL 1.02 (H) 0.93 Sodium 136 - 144 mmol/L 137 139 Potassium 3.7 - 5.1 mmol/L 5.4 (H) 4.9 Chloride 97 - 105 mmol/L 98 101 CO2 22 - 30 mmol/L 24 20 (L) Anion Gap 9 - 18 mmol/L 15 18 Calcium 8.5 - 10.2 mg/dL 8.7 9.2 eGFR- >60 >60 eGFR-All Other Races . 52 58 Cholesterol, Total <200 mg/dL 188 135 Triglyceride <150 mg/dL 105 90 HDL Cholesterol >39 mg/dL 59 56 LDL Cholesterol <100 mg/dL 108 (H) 61 Non HDL Cholesterol <130 mg/dL 129 79 Fasting Time hrs 4 0 VLDL Cholesterol <30 mg/dL 21 18 TC:HDL Ratio <5.10 3.19 2.41 LDL:HDL Ratio <2.54 1.83 1.09 Iron 41 - 186 ug/dL 61 TIBC 232 - 386 ug/dL 285 Transferrin Saturation 15 - 57 % 21 Hemoglobin A1C 4.3 - 5.6 % 6.6 (H) Estimated Average Glucose mg/dL 143 CRP <0.9 mg/dL 0.1 WSR 0 - 20 mm/hr 16 ALT 7 - 38 U/L 19 CK 42 - 196 U/L 92 Component Latest Ref Rng AND Units 01/04/2016 05/21/2016201602/15/2017 08/19/2017 02/18/2018 10/24/2018 Hemoglobin A1C 4.3 - 5.6 % 7.3 (H) 7.8 ( H) 7.0 (H) 7.0 (H) 7.0 (H) 7.1 (H) 6.6 (H) Estimated Average Glucose mg/dL 163 177 154 154 154 157 143 Component Latest Ref Rng AND Units 02/15/2017 08/19/2017201812/05/2018 Triglyceride <150 mg/dL 67 80 105 90 Cholesterol, Total <200 mg/dL 208 (H) 179 188 135 HDL Cholesterol >39 mg/dL 84 62 59 56 VLDL Cholesterol <30 mg/dL 13 16 21 18 LDL Cholesterol <100 mg/dL 111 101 (H) 108 (H) 61 Fasting Time hrs 14 12 4 0 TC:HDL Ratio <5.10 2.48 2.89 3.19 2.41 LDL:HDL Ratio <2.54 1.32 1.63 1.83 1.09 Non HDL Cholesterol <130 mg/dL 124 117 129 79 ALLERGIES Allergen Reactions - Macrobid [Nitrofura* GI Upset - Adhesive Tape (Lisa* Other: See Comments redness - Ativan [Lorazepam] Mental Status Change - Benzodiazepines Mental Status Change ativan--made her loopy while in hospital - Ciprofloxacin Itching Oral Yeast Infection Thrush - Demerol [Meperidine* - Latex Rash Pt notes is a sensitivity, not allergy - Sulfa (Sulfonamide * Other: See Comments Patient was treated for UTI in October 2011 after told nurse gregorio t reaction was just yeast infection (not vomiting as was previously listed) - Xanthines darvon Current Outpatient Medications: calcium carbonate (CALCIUM 600 ORAL) Take by mouth. Vitamin E, dl, acetate, (VITAMIN E) 400 unit capsule T génesis 400 Units by mouth once daily. cyanocobalamin (VITAMIN B-12) 500 mcg tab tab(s) Take by angela th once daily. Cranberry Extract 200 mg cap Take 800 mg by mouth. HYDROcodone-acetaminophen (NORCO) 5-325 mg per tablet Take 0.5-1 tablets by mouth twice daily as needed for up to 60 days. blood sugar diagnostic (BLOOD GLUCOSE TEST) test strip Test blood sugar(s) 1 times daily. Dx: Type 2 DM - Controlled E11.9 Insulin: No levothyroxine (SYNTHROID) 25 mcg tablet Take 1 tablet by m outh daily before breakfast. ID# [id number] glimepiride (AMARYL) 1 mg tablet Take 1 tablet b y mouth daily with breakfast. ID# [id number] furosemide (LASIX) 20 mg tablet Take 1 tablet by mouth once daily. as needed for leg swelling. PNV Cmb#[id number] Acid ( COM PLETE) 14 mg iron- 400 mcg tab Take by mouth. Pt is taking 2 tablets daily cyanocobalamin 1,000 mcg/mL soln 1 mL IM every 3 weeks buPROPion XL (WELLBUTRIN XL) 150 mg 24 hr tablet Take 1 tablet by mouth once daily. ID# [id number] atorvastatin (LIPITOR) 20 mg tablet Take 1 tablet by mouth o nce daily. gabapentin (NEURONTIN) 300 mg capsule Ta ke 2 capsules by mouth twice daily for 180 days. ID# [id number] metFORMIN (GLUCOPHAGE) 850 mg tablet Take 1 tablet by mouth twice daily with meals. ID# [id number] cyclobenzaprine (FLEXERIL) 10 mg tablet Take 1 tablet by angela th daily at bedtime. ID# [id number] lisinopril (ZESTRIL, PRINIVI L) 10 mg tablet Take 1 tablet by mouth twice daily. As directed ID# [id number] mirtazapine (REMERON) 15 mg tablet Take 1 tablet by mouth daily at bedtime. ID# [id number] Blood-Glucose Meter monitoring kit Glucose Meter of Choice - Kit - Dx: Type 2 DM - Controlled E11.9 Test blood sugar 1 time daily. Lancets lancets Test blood sugar(s) 1 times miriam y. Dx: Type 2 DM - Controlled E11.9 Insulin: No Blood-Glucose Meter monitori ng kit Glucose Meter of Choice, insurance preferred - Kit - Dx: Type 2 DM - Controlled E11.9 blood sugar diagnostic (BLOOD GLUCOSE TEST) test strip Test blood sugar(s) 1x daily. Dx: Controlled DM type 2. Insulin: No PARoxetine (PAXIL) 10 mg tab let Take 1 tablet by mouth once daily. ID# [id number] LUER-MARLIN SYRINGE 3 mL 23 x 1 syrg US E FOR B-12 INJECTIONS EVERY 3 WEEKS OR DIRECTED cholecalciferol (VITAMIN D) 1,000 unit t ab tablet Take 2 tablets by mouth once daily. melatonin 10 mg tab Take 10 mg by mouth daily at bedtime. acyclovir (ZOVIRAX) 5 % ointment Apply 6 times daily for 7 days for cold sores Lancets (ACCU-CHEK MULTICLIX LANCET) Misc lancets Use as ins tructed famotidine (PEPCID) 20 mg tablet Take 1 tablet b y mouth twice daily. (Patient not taking: Reported on 05/07/2019 ) potassium chloride SR (MICRO-K) 10 mEq C R capsule Take 1 capsule by mouth once daily. once daily for three days then once daily when taking furosemide. (Patient not taking: Reported on 09/04/2018 ) Multivitamin capsule Take 1 capsule by mouth onc e daily. (Patient not taking: Reported on 12/09/2018 ) No current facility-administered medications for this visit. Assessment and Plan 1. Essential hypertension - ICD9: 401.9, ICD10: I10 (primary diagnosis) - good control - Continue current medication(s) - Encouraged dietary sodium restriction/DASH diet - Recommended regular aerobic exercise. - Goal of BP <130/80 2. Chronic bilateral low back pain with bilateral sciatica - ICD9: 724.2, 724.3, 338.29, ICD10: M54.42, M54.41, G89.29 s/p fusion with decreased pain 3. Controlled type 2 diabetes mellitus w ithout complication, without long-term current use of insulin (HCC) - ICD9: 250.00, ICD10: E11.9 Controlled. - Continue current medications - HGB A1C - COMP METABOLIC PANEL - CBC - LIPID PANEL BASIC - ALBUMIN/CREAT RATIO RND UR 4. Hyperlipidemia, unspecified hyperlipi demia type - ICD9: 272.4, ICD10: E78.5 - COMP METABOLIC PANEL - LIPID PANEL BASIC 5. Iron deficiency anemia, unspecified iron deficiency anemi a type - ICD9: 280.9, ICD10: D50.9 - CBC 6. Acquired hypothyroidism - ICD9: 244.9, ICD10: E03.9 - Instructed patient on importance of taking on an empty stomach either first thing in the morning or at bedtime. Stable - COMP METABOLIC PANEL 7. Pernicious anemia - ICD9: 281.0, ICD10: D51.0 - VITAMIN B12 BLOOD 8. Folate deficiency - ICD9: 266.2, ICD10: E53.8 9. TSH (thyroid-stimulating hormone deficiency) - ICD9: 24 4.8, ICD10: E03.8 - TSH BLD - T4 FREE/FREE THYROX 10. Nonrheumatic aortic valve stenosis - ICD9: 424.1, ICD10: I35.[address] Iraheta, NO current CP, syncope or ot her cardiac complaints Jake Fish, NBA.LAB ASST Referring Provider: SELF [[id number]] Allergies As of Date: 05/07/2019 Noted Allergy Reaction MACROBID (NITROFURANTOIN MONOHYD/*01/10/2009 8 - GI Upset ADHESIVE TAPE (ROSINS) 03/03/2013 14 - Other: See Comments Comments: redness ATIVAN (LORAZEPAM) 12/27/2015 1 - Mental Status Change BENZODIAZEPINES 12/22/2002 1 - Mental Status Change Comments: ativan--made her loopy while in hospital CIPROFLOXACIN 04/27/2008 9 - Itching Comments: Oral Yeast Infection Thrush DEMEROL (MEPERIDINE HCL) 05/04/2005 LATEX 12/22/2002 2 - Rash Comments: Pt notes is a sensitivity, not allergy SULFA (SULFONAMIDE ANTIBIOTICS) 12/22/2002 14 - Other: See C omments Comments: Patient was treated for UTI in October 2011 after told nurse that reaction was just yeast infection (not vomiting as was previously listed) XANTHINES 12/22/2002 Comments: matti Date Reviewed: 05/07/2019 Reviewed by: Magali Choudhury LPN - Fully Assessed Reason for Visit: Diabetes [34] Primary Visit Diagnosis:Essential hypertension [I10] Other Visit Diagnoses:Chronic bilateral low back pain with bilateral sciatica [M54.42, M54.41, G89.29] Controlled type 2 diabetes mellitus without complication, without long-term current use of insulin (HCC) [E11.9] Hyperlipidemia, unspecified hyperlipidemia type [E78.5] Iron deficiency anemia, unspecified iron deficiency anemia type [D50.9] Acquired hypothyroidism [E03.9] Pernicious anemia [D51.0] Folate deficiency [E53.8] TSH (thyroid-stimulating hormone deficiency) [E03.8] Nonrheumatic aortic valve stenosis [I35.0] Order(s):HGB A1C [MEPFO3M] Order #: [id number] FUTURE COMP METABOLIC PANEL [SQCMP] Order #: [id number] FUTURE CBC [SQCBC] Order #: [id number] FUTURE LIPID PANEL BASIC [SQLIPB] Order #: [id number] FUTURE TSH BLD [SQTSH] Order #: [id number] FUTURE T4 FREE/FREE THYROX [SQFT4] Order #: [id number] FUTURE ALBUMIN/CREAT RATIO RND UR [SQUACR] Order #: [id number] VITAMIN B12 BLOOD [SQB12] Order #: [id number] FUTURE Prescriptions as of 05/07/2019 Sig: CALCIUM 600 ORAL Take by mouth. VITAMIN E 400 UNIT CAPSULE Take 400 Units by mouth once * CYANOCOBALAMIN (VIT B-12) 500* Take by mouth once daily. CRANBERRY EXTRACT 200 MG CAPS* Take 800 mg by mouth. HYDROCODONE 5 MG-ACETAMINOPHE* Take 0.5-1 tablets by mouth t * BLOOD SUGAR DIAGNOSTIC STRIPS Test blood sugar(s) 1 times d* LEVOTHYROXINE 25 MCG TABLET Take 1 tablet by mouth daily * GLIMEPIRIDE 1 MG TABLET Take 1 tablet by mouth daily * FUROSEMIDE 20 MG TABLET Take 1 tablet by mouth once d* VITS,CALCIUM 21-IRON* Take by mouth. Pt is taking 2 * CYANOCOBALAMIN (VIT B-12) 1,0* 1 mL IM every 3 weeks BUPROPION XL 150 MG TAB Take 1 tablet by mouth once d* ATORVASTATIN 20 MG TABLET Take 1 tablet by mouth once d* GABAPENTIN 300 MG CAPSULE Take 2 capsules by mouth twic* METFORMIN 850 MG TABLET Take 1 tablet by mouth twice * CYCLOBENZAPRINE 10 MG TABLET Take 1 tablet by mouth daily * LISINOPRIL 10 MG TABLET Take 1 tablet by mouth twice * MIRTAZAPINE 15 MG TABLET Take 1 tablet by mouth daily * BLOOD-GLUCOSE METER KIT Glucose Meter of Choice - Kit* LANCETS Test blood sugar(s) 1 times d* BLOOD-GLUCOSE METER KIT Glucose Meter of Choice, insu* BLOOD SUGAR DIAGNOSTIC STRIPS Test blood sugar(s) 1x daily.* PAROXETINE 10 MG TABLET Take 1 tablet by mouth once d* BD LUER-MARLIN SYRINGE 3 ML 23 X* USE FOR B-12 INJECTIONS EVERY * CHOLECALCIFEROL (VITAMIN D3) * Take 2 tablets by mouth once * MELATONIN 10 MG TABLET Take 10 mg by mouth daily at * ACYCLOVIR 5 % TOPICAL OINTMENT Apply 6 times daily for 7 day * LANCETS Use as instructed FAMOTIDINE 20 MG TABLET Take 1 tablet by mouth twice * Patient not taking: Reported on 05/07/2019 POTASSIUM CHLORIDE ER 10 MEQ * Take 1 capsule by mouth once * Patient not taking: Reported on 09/04/2018 MULTIVITAMIN CAPSULE Take 1 capsule by mouth once * Patient not taking: Reported on 12/09/2018 Problem List As Of Date 05/07/2019 Noted Resolved ROTATOR CUFF SYND NOS [M71.9, M67.919] INVALID FOR* Lateral epicondylitis of elbow [M77.10] INVALID FOR*04/18/20 10 JOINT PAIN-UP/ARM [M25.529] INVALID FOR* TRIGGER FINGER [M65.30] INVALID FOR* More... Follow-up examination following surgery [V67.0] INVALID FOR* 04/18/2010 Other tenosynovitis of hand and wrist [M65.849,*INVALID FOR* 04/18/2010 Hyperlipidemia [E78.5] More... Iron deficiency anemia [D50.9] More... PERNICIOUS ANEMIA [D51.0] More... More... More... Diabetes mellitus type 2, controlled, without c*INVALID FOR* More... Pain in soft tissues of limb [M79.609] INVALID FOR* 0 INSOMNIA NOS [G47.00] INVALID FOR* More... OSTEOPENIA [M89.9, M94.9] INVALID FOR* More... 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 Abdominal pain, other specified site [R10.9] INVALID FOR* HEMORRHOIDS NOS [K64.9] INVALID FOR* DISLOC DIST RADIOULN-CLOSE [S63.016A] INVALID FOR* Abdominal pain, generalized [R10.84] INVALID FOR*04/18/2010 PULMONARY NODULE [R22.2] INVALID FOR* More... ATROPHIC VAGINITIS [N95.2] INVALID FOR* FELIPE (Generalized Anxiety Disorder) [F41.1] INVALID FOR* Cervicalgia [M54.2] INVALID FOR* Other physical therapy [RKQ3790] INVALID FOR*01/06/2016 Other specified disorder of bladder [596.8] INVALID FOR*01/2016 Recurrent UTI [N39.0] INVALID FOR*01/06/2016 Polypharmacy [Z79.899] INVALID FOR* Abnormality of urethral meatus [Q64.70] INVALID FOR* Generalized abdominal pain [R10.84] INVALID FOR* Urinary retention [R33.9] INVALID FOR* Hypothyroidism [E03.9] INVALID FOR* Urgency of urination [R39.15] INVALID FOR* Urge incontinence [N39.41] INVALID FOR* Trigger index finger of right hand [M65.321] INVALID FOR* DJD (degenerative joint disease) [M19.90] Marital conflict [Z63.0] INVALID FOR* Vitamin D deficiency [E55.9] INVALID FOR* Attention deficit hyperactivity disorder (ADHD)*INVALID FOR* Bilateral low back pain with right-sided sciati*INVALID FOR* Right hip pain [M25.551] INVALID FOR* Recurrent major depressive disorder, in partial*INVALID FOR* Pain in right hip [M25.551] INVALID FOR* Trochanteric bursitis of both hips [M70.61, M70*INVALID FOR* Chronic bilateral low back pain without sciatic*INVALID FOR* Trigger little finger of left hand [M65.352] INVALID FOR* Trigger ring finger of left hand [M65.342] INVALID FOR* Trigger middle finger of left hand [M65.332] INVALID FOR* Bilateral hip pain [M25.551, M25.552] INVALID FOR* Greater trochanteric bursitis of both hips [M70*INVALID FOR* Status post bariatric surgery [Z98.84] INVALID FOR* Dysuria [R30.0] INVALID FOR* Nonrheumatic aortic valve stenosis [I35.0] INVALID FOR* HTN, goal below 130/80 [I10] INVALID FOR* Disposition: Return in about 6 months (around 11/05/2019). Follow-up and Disposition History Recorded Encounter Status:Closed by JAKE BLACKMON on 05/07/19 cbc on 2019-05-07 Absolute nRBC <0.01 <0.01 Normal 05-07-2019 [facility] ([id number]) Comment: Performed By: #### CBC, LIPB , B12, HBA1C, CMP, FT4, TSH ####[place] [address] [address] [place] [phone] Erythrocyte distribution 14.4 11.5-15.0 % Normal 05-07 [facility] width (RBC) [Ratio] [place] (99271) Comment: Performed By: #### CBC, LIPB , B12, HBA1C, CMP, FT4, TSH ####[place] [address] [place] [phone] Hematocrit (Bld) [Volume 35.3 36.0-46.0 % Low 05-07 [facility] fraction] ([id number]) Comment: Performed By: #### CBC, LIPB , B12, HBA1C, CMP, FT4, TSH ####[place] [address] [place], [place] [phone] Hemoglobin (Bld) 10.7 11.5-15.5 g/dL Low 05-07-2019 [facility] [Mass/Vol] [place] (18086) Comment: Performed By: #### CBC, LIPB , B12, HBA1C, CMP, FT4, TSH ####[place] [address] [place], [place] [phone] MCH (RBC) [Entitic mass] 30.0 26.0-34.0 pG Normal 05-07 [facility] (27061) Comment: Performed By: #### CBC, LIPB , B12, HBA1C, CMP, FT4, TSH ####[place] [address] [place], [place] [phone] MCHC (RBC) [Mass/Vol] 30.3 30.5-36.0 g/dL Low 05-07-20 19 [facility] (30073) Comment: Performed By: #### CBC, LIPB , B12, HBA1C, CMP, FT4, TSH ####[place] [address] [place], [place] [phone] MCV (RBC) [Entitic vol] 98.9 80.0-100.0 fL Normal 05-07 [facility] (90902) Comment: Performed By: #### CBC, LIPB , B12, HBA1C, CMP, FT4, TSH ####[place] [address] [place], [place] [phone] Platelet mean volume 10.7 9.0-12.7 fL Normal 9 [facility] (d) [Entitic vol] [place] (29961) Comment: Performed By: #### CBC, LIPB , B12, HBA1C, CMP, FT4, TSH ####[place] [address] [place], [place] [phone] Platelets (d) [#/Vol] 342 150-400 k/uL Normal 2018 [facility] (18001) Comment: Performed By: #### CBC, LIPB , B12, HBA1C, CMP, FT4, TSH ####[place] [address] [place], [place] [phone] RBC (Bld) [#/Vol] 3.57 3.90-5.20 m/uL Low 05-07-2019 [facility] (71278) Comment: Performed By: #### CBC, LIPB , B12, HBA1C, CMP, FT4, TSH ####[place] [address] [place], [place] [phone] WBC (Bld) [#/Vol] 5.76 3.70-11.00 k/uL Normal 05-07-2019 [facility] (62214) Comment: Performed By: #### CBC, LIPB , B12, HBA1C, CMP, FT4, TSH ####[place] [phone] toxicology screen,ur on 2019-04-24 Amphetamines, Urine Negative Negative Normal 04-24-2019 [facility] (23372) Comment: Result Comment: Cutoff thres hold at 1000 ng/mL. Performed By: #### UTOX2 ### #[place] [phone] Barbiturates, Urine Negative Negative Normal 04-24-2019 [facility] (75685) Comment: Result Comment: Cutoff thres hold at 200 ng/mL. Performed By: #### UTOX2 ### #[place] [phone] Benzodiazepines, Ur Negative Negative Normal 04-24-2019 [facility] (42939) Comment: Result Comment: Cutoff thres hold at 200 ng/mL. Performed By: #### UTOX2 ### #[place] [address] [address] [phone] Cannabinoids, Urine Negative Negative Normal 04-24-2019 [facility] (37310) Comment: Result Comment: Cutoff thres hold at 50 ng/mL. Performed By: #### UTOX2 ### #[place] [phone] Cocaine, Urine Negative Negative Normal 04-24-2019 [facility] (20183) Comment: Result Comment: Cutoff thres hold at 300 ng/mL. Performed By: #### UTOX2 ### #[place] [address] [address] [phone] Ethanol, Urine <11 <11 Normal 04-24-2019 [facility] (53741) Comment: Performed By: #### UTOX2 ### #[place] [address] [address], [place] [phone] Opiates, Urine Negative Negative Normal 04-24-2019 [facility] (86590) Comment: Result Comment: Cutoff thres hold at 300 ng/mL. Performed By: #### UTOX2 ### #[facility] [place], [place] [phone] Oxycodone, Urine Negative Negative Normal 04-24-2019 [facility] (64785) Comment: Result Comment: Cutoff thres hold at 100 ng/mL. Comment: Immunoassay screen only. Polisher Balance Screwhead ss reactivity with other substances can occur with immunoassay screening. Detection of any drug(s) in this urine toxicology panel is presumptive only. These tests are for med ical purposes only and shoul d not be used for compliance monitoring, legal, or forensic use. Samples should be within nor mal physiological conditions (e.g. pH). This assay does not include adulteration/specimen validity testing. In clinical settings, confir matory testing is at the practitioner's discretion [1]. If clinically indicated, confirmation by high specificity, quantitative methodology, which includes adulteration/speci men validity testing, may be requested on the same specimen through Client Services ([phone]) if contacted within 48 hours of initial testing. [1]Substance Abuse and [facility] Administration (2012). Clinical Drug Testing in Primary Care Technical Assistance Publication Series 32. Department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 Cancer Daughter melanoma - Ovarian cancer Sister diagnosed at Stage IV - Arthritis Sister Through out the whole family Social History Tobacco Use - Smoking status: Former Smoker Packs/day: 1.00 Years: 5.00 Pack years: 5.00 Types: Cigarettes Last attempt to quit: 01/05/1971 Years since quittin.3 - Smokeless tobacco: Never Used Substance Use Topics - Alcohol use: Yes Comment: Rarely - Drug use: No Past medical history, appointments, medications, allergies r zenawed. Pertinent Lab/Diagnostic Studies are reviewed and discussed today Current Outpatient Medications: - blood sugar diagnostic (BLOOD GLUCOSE TEST) test strip - levothyroxine (SYNTHROID) 25 mcg tablet - glimepiride (AMARYL) 1 mg tablet - furosemide (LASIX) 20 mg tablet - PNV Cmb#30-Oijx-Kefkz Acid ( COMPLETE) 14 mg iron- 400 mcg tab - cyanocobalamin 1,000 mcg/mL soln - buPROPion XL (WELLBUTRIN XL) 150 mg 24 hr tablet - HYDROcodone-acetaminophen (NORCO) 5-325 mg per tablet - atorvastatin (LIPITOR) 20 mg tablet - gabapentin (NEURONTIN) 300 mg capsule - metFORMIN (GLUCOPHAGE) 850 mg tablet - cyclobenzaprine (FLEXERIL) 10 mg tablet - lisinopril (ZESTRIL, PRINIVIL) 10 mg tablet - mirtazapine (REMERON) 15 mg tablet - potassium chloride SR (MICRO-K) 10 mEq CR capsule - Blood-Glucose Meter monitoring kit - Lancets lancets - Blood-Glucose Meter monitoring kit - blood sugar diagnostic (BLOOD GLUCOSE TEST) test strip - PARoxetine (PAXIL) 10 mg tablet - BD LUER-MARLIN SYRINGE 3 mL 23 x 1 syrg - Multivitamin capsule - cholecalciferol (VITAMIN D) 1,000 unit tab tablet - melatonin 10 mg tab - acyclovir (ZOVIRAX) 5 % ointment - Lancets (ACCU-CHEK MULTICLIX LANCET) [facility] lancets Review of Systems CONSTITUTIONAL: No fevers, chills night sweats, unintended w eight loss CARDIOVASCULAR: No chest pain, dyspnea, palpitations, orth opnea, PND, ankle edema. PULM: No dyspnea, unexplained cough. GI: No dysphagia/odynophagia, problematic reflux, constipati on, diarrhea, changes in stool habits, hematochezia, melena. : No new urinary complaints, including dysuria, chilo s hematuria or pyuria. NEURO: No new balance problems, peripheral weakness/pa resthesias or numbness of concern. Physical Exam BP 128/60 (BP Site: Left Arm, BP Position: Sitting, BP Cuff Size: Regular Adult) Pulse 96 Resp 12 Ht 156.2 cm (5' 1.5) Wt 53. 5 kg (118 lb) SpO2 95% BMI 21.93 kg/m? General appearance: Well bari earing, alert, in no acute distress, well nourished. Skin: Skin color, texture, turgor normal, no suspicious rash es or lesions Head: Normocephalic, no masses, lesions, tenderness or abnor malities Eyes: Anicteric sclera. Pupils are equally round and reactiv e to light. Extraocular movements are intact. Neck: posterior neck muscles near the occiput ar e hurting her. Hurting her to the touch. No weakness of the neck or stiffness, she also has normal range of movement Lungs: Lungs clear to auscultation. No wheezing, rhonchi, ra les Heart: RRR without murmur, gallop, or rubs. Extremities: No deformities, edema, skin discolo ration, clubbing or cyanosis. Good capillary refill. ASSESSMENT/PLAN: 1. Neck pain - ICD9: 723.1, ICD10: M54.2 (primary diagnosis) Take pepcid when on the steroid. Report back if not better in a weeks time Went over the side effect profile for the drug with the regine ent, mentioned every one of it , discussed appropriate concerns , alternatives and benefits of the drug, - METHYLPREDNISOLONE 4 MG TABLETS IN A DOSE PACK 2. Muscle pain - ICD9: 729.1, ICD10: M79.10 - METHYLPREDNISOLONE 4 MG TABLETS IN A DOSE PACK PEREZ JOHNSTON MD Referring Provider: SELF [[id number]] Allergies As of Date: 04/16/2019 Noted Allergy Reaction MACROBID (NITROFURANTOIN MONOHYD/*01/10/2009 8 - GI Upset ADHESIVE TAPE (ROSINS) 03/03/2013 14 - Other: See Comments Comments: redness ATIVAN (LORAZEPAM) 12/27/2015 1 - Mental Status Change BENZODIAZEPINES 12/22/2002 1 - Mental Status Change Comments: ativan--made her loopy while in hospital CIPROFLOXACIN 04/27/2008 9 - Itching Comments: Oral Yeast Infection Thrush DEMEROL (MEPERIDINE HCL) 05/04/2005 LATEX 12/22/2002 2 - Rash Comments: Pt notes is a sensitivity, not allergy SULFA (SULFONAMIDE ANTIBIOTICS) 12/22/2002 14 - Other: See C omnico Comments: Patient was treated for UTI in October 2011 after told nurse that reaction was just yeast infection (not vomiting as was previously listed) XANTHINES 12/22/2002 Comments: matti Date Reviewed: 04/16/2019 Reviewed by: Jessie Laguna NITRATOR OPERATOR - Fully Assessed Reason for Visit: Established Patient [175] Cmt: patient- ER alee w up h/a's Primary Visit Diagnosis:Neck pain [M54.2] Other Visit Diagnosis:Muscle pain [M79.10] Order(s):methylPREDNISolone (MEDROL, VIDYA,) 4 mg Dose-PackFol low dosing instructions, take with food.Disp: 1 PackageRfl: 0 famotidine (PEPCID) 20 mg tabletTake 1 tablet by mouth twice daily.Disp: 60 tabletRfl: 1 Prescriptions as of 04/16/2019 Sig: METHYLPREDNISOLONE 4 MG TABLE* Follow dosing instructions, t * FAMOTIDINE 20 MG TABLET Take 1 tablet by mouth twice * BLOOD SUGAR DIAGNOSTIC STRIPS Test blood sugar(s) 1 times d* LEVOTHYROXINE 25 MCG TABLET Take 1 tablet by mouth daily * GLIMEPIRIDE 1 MG TABLET Take 1 tablet by mouth daily * FUROSEMIDE 20 MG TABLET Take 1 tablet by mouth once d* VITS,CALCIUM 21-IRON* Take by mouth. Pt is taking 2 * CYANOCOBALAMIN (VIT B-12) 1,0* 1 mL IM every 3 weeks BUPROPION XL 150 MG TAB Take 1 tablet by mouth once d* HYDROCODONE 5 MG-ACETAMINOPHE* Take 0.5-1 tablets by mouth t * ATORVASTATIN 20 MG TABLET Take 1 tablet by mouth once d* GABAPENTIN 300 MG CAPSULE Take 2 capsules by mouth twic* METFORMIN 850 MG TABLET Take 1 tablet by mouth twice * CYCLOBENZAPRINE 10 MG TABLET Take 1 tablet by mouth daily * LISINOPRIL 10 MG TABLET Take 1 tablet by mouth twice * MIRTAZAPINE 15 MG TABLET Take 1 tablet by mouth daily * POTASSIUM CHLORIDE ER 10 MEQ * Take 1 capsule by mouth once * Patient not taking: Reported on 09/04/2018 BLOOD-GLUCOSE METER KIT Glucose Meter of Choice - Kit* LANCETS Test blood sugar(s) 1 times d* BLOOD-GLUCOSE METER KIT Glucose Meter of Choice, insu* BLOOD SUGAR DIAGNOSTIC STRIPS Test blood sugar(s) 1x daily.* PAROXETINE 10 MG TABLET Take 1 tablet by mouth once d* BD LUER-MARLIN SYRINGE 3 ML 23 X* USE FOR B-12 INJECTIONS EVERY * MULTIVITAMIN CAPSULE Take 1 capsule by mouth once * Patient not taking: Reported on 12/09/2018 CHOLECALCIFEROL (VITAMIN D3) * Take 2 tablets by mouth once * MELATONIN 10 MG TABLET Take 10 mg by mouth daily at * ACYCLOVIR 5 % TOPICAL OINTMENT Apply 6 times daily for 7 day * LANCETS Use as instructed Problem List As Of Date 04/16/2019 Noted Resolved ROTATOR CUFF SYND NOS [M71.9, M67.919] INVALID FOR* Lateral epicondylitis of elbow [M77.10] INVALID FOR*04/18/20 10 JOINT PAIN-UP/ARM [M25.529] INVALID FOR* TRIGGER FINGER [M65.30] INVALID FOR* More... Follow-up examination following surgery [V67.0] INVALID FOR* 04/18/2010 Other tenosynovitis of hand and wrist [M65.849,*INVALID FOR* 04/18/2010 Hyperlipidemia [E78.5] More... Iron deficiency anemia [D50.9] More... PERNICIOUS ANEMIA [D51.0] More... More... More... Diabetes mellitus type 2, controlled, without c*INVALID FOR* More... Pain in soft tissues of limb [M79.609] INVALID FOR* 0 INSOMNIA NOS [G47.00] INVALID FOR* More... OSTEOPENIA [M89.9, M94.9] INVALID FOR* More... 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 Abdominal pain, other specified site [R10.9] INVALID FOR* HEMORRHOIDS NOS [K64.9] INVALID FOR* DISLOC DIST RADIOULN-CLOSE [S63.016A] INVALID FOR* Abdominal pain, generalized [R10.84] INVALID FOR*04/18/2010 PULMONARY NODULE [R22.2] INVALID FOR* More... ATROPHIC VAGINITIS [N95.2] INVALID FOR* FELIPE (Generalized Anxiety Disorder) [F41.1] INVALID FOR* Cervicalgia [M54.2] INVALID FOR* Other physical therapy [[id number]] INVALID FOR*01/06/2016 Other specified disorder of bladder [596.8] INVALID FOR*01/2016 Recurrent UTI [N39.0] INVALID FOR*01/06/2016 Polypharmacy [Z79.899] INVALID FOR* Abnormality of urethral meatus [Q64.70] INVALID FOR* Generalized abdominal pain [R10.84] INVALID FOR* Urinary retention [R33.9] INVALID FOR* Hypothyroidism [E03.9] INVALID FOR* Urgency of urination [R39.15] INVALID FOR* Urge incontinence [N39.41] INVALID FOR* Trigger index finger of right hand [M65.321] INVALID FOR* DJD (degenerative joint disease) [M19.90] Marital conflict [Z63.0] INVALID FOR* Vitamin D deficiency [E55.9] INVALID FOR* Attention deficit hyperactivity disorder (ADHD)*INVALID FOR* Bilateral low back pain with right-sided sciati*INVALID FOR* Right hip pain [M25.551] INVALID FOR* Recurrent major depressive disorder, in partial*INVALID FOR* Pain in right hip [M25.551] INVALID FOR* Trochanteric bursitis of both hips [M70.61, M70*INVALID FOR* Chronic bilateral low back pain without sciatic*INVALID FOR* Trigger little finger of left hand [M65.352] INVALID FOR* Trigger ring finger of left hand [M65.342] INVALID FOR* Trigger middle finger of left hand [M65.332] INVALID FOR* Bilateral hip pain [M25.551, M25.552] INVALID FOR* Greater trochanteric bursitis of both hips [M70*INVALID FOR* Status post bariatric surgery [Z98.84] INVALID FOR* Dysuria [R30.0] INVALID FOR* Nonrheumatic aortic valve stenosis [I35.0] INVALID FOR* HTN, goal below 130/80 [I10] INVALID FOR* Prescriptions ordered this encounter Disp Refills Start End METHYLPREDNISOLONE 4 MG TABLETS IN A* 1 Pa* 0 04/16/2019 Sig: Follow dosing instructions, take with food. FAMOTIDINE 20 MG TABLET 60 t* 1 04/16/2019 Route: ORAL Sig: Take 1 tablet by mouth twice daily. Encounter Status:Closed by PEREZ JOHNSTON MD on 04/16/19 clinical summary: [email or web address] on 2019-01-29 OOP 01-29-2019 - 01-29-2019 [facility] ([id number]) Vital Signs Vital Sign Description Value / Unit Date Location The following section is limited to 5 en tries per type and includes entries from the following time range: 20190129 - [id number] 0. NEGATED: Highlighted 23.7 kg/m2 02-18-2020 - 02-18-2020 [facility] rowBMI (Body Mass Index) [facility] ([id number]) NEGATED: Highlighted 23.7 kg/m2 12-31-2019 - 12-31-2019 [facility] rowBMI (Body Mass Index) [facility] ([id number]) NEGATED: Highlighted 22.21 kg/m2 06-30-2019 - 06-30-2019 [facility] rowBMI (Body Mass Index) [facility] ([id number]) NEGATED: Highlighted 23.68 kg/m2 01-29-2019 - 01-29-2019 [facility] rowBMI (Body Mass Index) [facility] ([id number]) NEGATED: Highlighted 57 kg 02-18-2020 - 02-18-2020 [facility] ([id number]) NEGATED: Highlighted 56.7 kg 02-18-2020 - 02-18-2020 [facility] rowBody weight [facility] ([id number]) NEGATED: Highlighted 56.7 kg 12-31-2019 - 12-31-2019 [facility] rowBody weight [facility] ([id number]) NEGATED: Highlighted 57 kg 12-31-2019 - 12-31-2019 [facility] rowBody weight [facility] ([id number]) NEGATED: Highlighted 54.89 kg 06-30-2019 - 06-30-2019 [facility] rowBody weight [facility] ([id number]) NEGATED: Highlighted 74 mm[Hg] 02-18-2020 - 02-18-2020 [facility] rowBP Diastolic [facility] ([id number]) NEGATED: Highlighted 62 mm[Hg] 06-30-2019 - 06-30-2019 [facility] rowBP Diastolic [facility] ([id number]) NEGATED: Highlighted 78 mm[Hg] 01-29-2019 - 01-29-2019 [facility] rowBP Diastolic [facility] ([id number]) NEGATED: Highlighted 122 mm[Hg] 02-18-2020 - 02-18-2020 [facility] rowBP Systolic [facility] ([id number]) NEGATED: Highlighted 105 mm[Hg] 06-30-2019 - 06-30-2019 [facility] rowBP Systolic [facility] ([id number]) NEGATED: Highlighted 114 mm[Hg] 01-29-2019 - 01-29-2019 [facility] rowBP Systolic [facility] ([id number]) NEGATED: Highlighted 2+ 06-30-2019 - 06-30-2019 [facility] rowHeart rate [facility] ([id number]) NEGATED: Highlighted 154.94 cm 02-18-2020 - 02-18-2020 [facility] rowHeight [facility] ([id number]) NEGATED: Highlighted 155 cm 02-18-2020 - 02-18-2020 [facility] rowHeight [facility] ([id number]) NEGATED: Highlighted 155 cm 12-31-2019 - 12-31-2019 [facility] rowHeight [facility] ([id number]) NEGATED: Highlighted 154.94 cm 12-31-2019 - 12-31-2019 [facility] rowHeight [facility] ([id number]) NEGATED: Highlighted 157.48 cm 06-30-2019 - 06-30-2019 [facility] rowHeight [facility] ([id number]) NEGATED: Highlighted 102 /min 02-18-2020 - 02-18-2020 [facility] rowPulse (Heart Rate) [facility] ([id number]) NEGATED: Highlighted 92 /min 06-30-2019 - 06-30-2019 [facility] rowPulse (Heart Rate) [facility] ([id number]) NEGATED: Highlighted 81 /min 01-29-2019 - 01-29-2019 [facility] rowPulse (Heart Rate) [facility] ([id number]) Encounters Date Type Reason Provider Location 03-25-2020 - Patient encounter External Provider [facility] 03-25-2020 procedure 02-18-2020 - Patient encounter [facility] 02-18-2020 [facility] - [facility] ([id number]) 12-31-2019 - Patient encounter [facility]ida [facility] 12-31-2019 procedure [facility] ([id number]) 06-30-2019 - Patient encounter [facility] 07-04-2019 procedure [facility] - [facility] ([id number]) 01-29-2019 - Patient encounter [facility] 01-29-2019 procedure [facility] ([id number]) 01-29-2019 - Pt evaluation Sobeida Velazquez [facility] 01-29-2019 [facility] ([id number]) 04-01-2020 - Refill Chronic low back [facility] 04-01-2020 pain [place] Comment: Refill Request 03-31-2020 - 03-31-2020 Refill [facility] [place] Comment: Refill Request 03-15-2020 - 03-15-2020 Refill [facility] [place] Comment: Refill Request 03-25-2020 Results Only External External-Non[facility] Provider 02-24-2020 - Telephone Chronic low [facility] 02-24-2020 encounter back pain [place] Comment: Medication Question Procedures Procedure Name Date Provider Location EXTERNAL IMAGING 03-25-2020 External Provider [facility] ([id number]) NEGATED: Highlighted 02-18-2020 - [facility] rowDocumentation of current 02-18-2020 [facility] ([id number]) Blood pressure within normal 02-18-2020 - [facility]ida Velazquez [facility] parameters - no follow-up 02-18-2020 [facility] - required [facility] ([id number]) Documentation of current 02-18-2020 - [facility] medications 02-18-2020 [facility] ([id number]) Pain assessment documented 02-18-2020 - [facility] as positive - follow-up 02-18-2020 [facility] - documented [facility] ([id number]) Tobacco non-user 02-18-2020 - [facility] 02-18-2020 [facility] ([id number]) NEGATED: Highlighted 12-31-2019 - [facility] rowDocumentation of current 12-31-2019 [facility] ([id number]) Blood pressure screening not 12-31-2019 - [facility] performed - reason not given 12-31-2019 [facility] - [facility] ([id number]) BMI documented within normal 12-31-2019 - [facility] parameters - no follow-up 12-31-2019 [facility] - plan is required [facility] ([id number]) Documentation of current 12-31-2019 - [facility] ([id number]) Pain assessment documented 12-31-2019 - [facility]obeida Chavez [facility] as positive - follow-up 12-31-2019 [facility] - documented [facility] ([id number]) Tobacco non-user 12-31-2019 - [facility] 12-31-2019 [facility] ([id number]) NEGATED: Highlighted 06-30-2019 - [facility] rowDocumentation of current 06-30-2019 [facility] ([id number]) Blood pressure within normal 06-30-2019 - Armin Ibrahim DO [facility] parameters - no follow-up 07-04-2019 [facility] - [facility] ([id number]) Documentation of current 06-30-2019 - Armin Reynlodsa l [facility] medications 07-04-[address] [facility] ([id number]) Fall plan of care docd 06-30-2019 - Armin Ibrahim DO [facility] 07-04-[address] [facility] ([id number]) Fall risk assessment docd 06-30-2019 - [facility]in [facility] 07-04-[facility] ([id number]) Pain assessment documented 06-30-2019 - Armin Ibrahim [facility] as positive - follow-up 07-04-2019 [facility] - documented [facility] ([id number]) Ptfalls assess-docd ge2>/yr 06-30-2019 - [facility]in [facility] 07-04-[facility] ([id number]) Tobacco non-user 06-30-2019 - Armin Lamar Patrice HAGAN [facility] 07-04-[facility] ([id number]) NEGATED: Highlighted 01-29-2019 - [facility] rowDocumentation of current 01-29-2019 [facility] ([id number]) Blood pressure within normal 01-29-2019 - Sobeida Chavez [facility] parameters - no follow-up 01-29-2019 [facility] - required [facility] ([id number]) BMI documented within normal 01-29-2019 - Sobeida Velazquez [facility] parameters - no follow-up 01-29-2019 [facility] - plan is required [facility] ([id number]) Documentation of current 01-29-2019 - [facility] ([id number]) Pain assessment documented 01-29-2019 - [facility] as positive - follow-up 01-29-2019 [facility] - documented [facility] ([id number]) Tobacco non-user 01-29-2019 - [facility]-29-[facility] ([id number]) Colonoscopy 05-12-2018 - [facility] 05-12-2018 ([id number]) Plan of Treatment Plan Description Date Location COLONOSCOPY COLONOSCOPY 05-12-2028 - [facility] 05-12-2028 ([id number]) DTAP,TDAP,TD (3 - Td) DTAP,TDAP,TD (3 - Td) 01-08-2028 - [facility] 01-08-2028 ([id number]) ANNUAL PCP TEAM CHRONIC ANNUAL PCP TEAM CHRONIC 02-04-2021 - [facility] DISEASE VISIT DISEASE VISIT 02-04-2021 ([id number]) BP CONTROLLED (<130/80) BP CONTROLLED (<130/80) 02-04-2021 - [facility] 02-04-2021 ([id number]) LDL CHOLESTEROL LDL CHOLESTEROL 12-07-2020 - [facility] 12-07-2020 ([id number]) DILATED RETINAL EXAM DILATED RETINAL EXAM 11-09-2020 - [facility] 11-09-2020 ([id number]) HBA1C HBA1C 06-08-2020 - [facility] 06-08-2020 ([id number]) INFLUENZA (#1) INFLUENZA (#1) 2020 - [facility] 03-01-2020 ([id number]) Appointment Appointment 02-18-2020 - [facility] 02-18-[address] [facility] ([id number]) XR LUMBAR 2-3 VWS XR LUMBAR 2-3 VWS 02-18-2020 - [facility] AP/LAT AP/LAT 02-18-[address] [facility] ([id number]) Appointment Appointment 01-18-2020 - [facility] 01-18-[address] [facility] ([id number]) Appointment Appointment 12-31-2019 - [facility] 12-31-[address] [facility] ([id number]) MRI lumbar with and MRI lumbar with and 12-31-2019 - [facility] without contrast without contrast 12-31-2019 [facility] - [facility] ([id number]) XR LUMBAR 4VWS FLEX/EX XR LUMBAR 4VWS FLEX/EX 12-31-2019 - [facility] 12-31-[facility] ([id number]) DIABETIC FOOT EXAM DIABETIC FOOT EXAM 12-13-2019 - [facility] 12-13-2019 ([id number]) XR LUMBAR 4VWS FLEX/EX XR LUMBAR 4VWS FLEX/EX 06-30-2019 - [facility] 06-30-[address] [facility] ([id number]) Appointment Appointment 03-31-2019 - [facility] 03-31-[address] [facility] ([id number]) Appointment no information 01-29-2019 - [facility] 01-29-[address] [facility] ([id number]) XR LUMBAR 2-3 VWS XR LUMBAR 2-3 VWS 01-29-2019 - [facility] AP/LAT AP/LAT 01-29-[address] [facility] - [facility] ([id number]) URINE URINE 08-19-2018 - [facility] ALBUMIN:CREATININE ALBUMIN:CREATININE 08-19-2018 ([id number]) RATIO RATIO ADVANCE DIRECTIVE ADVANCE DIRECTIVE 11-05-2013 - [facility] inic DISCUSSION DISCUSSION 11-05-2013 ([id number]) Patient education \cps-sql1\CPS_PtEducati [facility] on\CDC_FALL_PREVENTION. Orthopae dic Center - pdf [facility]opa[facility] Surg [facility] ([id number]) no information [facility] ([id number]) Immunizations Vaccine Notes Status Date Location DT(PEDIATRIC) diphtheria and tetanus (completed) 03-21-1999 - [facility] toxoids, adsorbed for 03-21-1999 ([id number] ) pediatric use Influenza Vaccine, influenza virus (completed) 05-21-2013 - [facility] Split-Non Spec vaccine, unspecified 05-21-2013 (4419 5) formulation Influenza Vaccine, influenza virus (completed) 03-26-2012 - [facility] Split-Non Spec vaccine, unspecified 03-26-2012 (4419 5) formulation Influenza Vaccine, influenza virus (completed) 03-29-2010 - [facility] Split-Non Spec vaccine, unspecified 03-29-2010 (4419 5) formulation Influenza Vaccine, influenza virus (completed) 05-07-2005 - [facility] Split-Non Spec vaccine, unspecified 05-07-2005 (4419 5) formulation Influenza Seasonal - influenza, high dose (completed) 04-27-2019 - [facility] High Dose - Age 65+ seasonal, 04-27-2019 ([id number]) preservative-free Influenza Seasonal - influenza, high dose (completed) 05-18-2015 - [facility] High Dose - Age 65+ seasonal, 05-18-2015 ([id number]) preservative-free Influenza Seasonal - influenza, high dose (completed) 02-16-2014 - [facility] High Dose - Age 65+ seasonal, 02-16-2014 ([id number]) preservative-free Influenza Seasonal influenza, seasonal, (completed) 02-28-2018 - [facility] Inj Age 3+ injectable 02-28-2018 ([id number]) Pneumococcal-13 Vac pneumococcal conjugate (completed) 10-11-2016 - [facility] Conjugate vaccine, 13 valent 10-11-2016 ([id number]) Pneumovax pneumococcal (completed) [facility], 04-25-2012 (441 95) 23 valent Pneumovax pneumococcal (completed) [facility]-18-2002 [facility] polys[facility], 05-18-2002 (441 95) 23 valent Tdap (Age 7+) tetanus toxoid, reduced (completed) 01-07-2018 - [facility] diphtheria toxoid, and 01-07-2018 (4419 5) acellular pertussis vaccine, adsorbed Zoster Recombinant zoster vaccine (completed) 03-10-2018 - [facility] (Shingrix) recombinant 03-10-2018 ([id number]) Zoster Recombinant zoster vaccine (completed) 01-30-2018 - [facility] (Shingrix) recombinant 01-30-2018 ([id number]) Payers Payer Name Policy Number Location [employer] MED[employer]ARE [id number] [facility] ([id number] 195) The following information is from the original human readable contentNo Payer Records Found Social History Type Social History Date Location Description Assertion Unknown if ever smoked 01-29-2019 [id number][facility] Tobacco smoking status Former smoker 02-05-2020 [facility] NHIS 02-05-2020 ([id number]) History of tobacco use Current smoker 01-05-1971 [facility] ([id number]) History of tobacco use Cigarette Smoker 01-05-1971 [facility] ([id number]) Cigarettes smoked 02-05-2020 - [facility] ic current (pack per day) 02-05-2020 ([id number]) - Reported Tobacco use and Never used 02-05-2020 [facility] exposure 02-05-2020 ([id number]) Alcohol intake Current drinker of 02-05-2020 [facility]ria alcohol (finding) 02-05-2020 ([id number]) Sex Assigned At Not on file [facility] ([id number]) Exposure to SARS-CoV-2 Not sure [facility] (event) ([id number]) The following information is from the original human readable contentNo Social History Records Found Medical Equipment Equipment Code (if Equipment Original Equipment Procedure Code ( if Dates provided) Text (if provided) Identifier (if provided) provided) Test blood sugar(s) 08-23-20 18 1x daily. Dx: Controlled DM type 2. Insulin: No Use as instructed 03-23-2011 Use as instructed 03-23-2011 Test blood sugar(s) 05-20 18 1 times daily. Dx: Type 2 DM - Controlled E11.9 Insulin: No Test blood sugar(s) 02-20-20 18 1x daily. Dx: Controlled DM type 2. Insulin: No Test blood sugar(s) 10--20 19 1 times daily. Dx: Type 2 DM - Controlled E11.9 Insulin: No Use as instructed 03-23-2011 Test blood sugar(s) 05-20 18 1 times daily. Dx: Type 2 DM - Controlled E11.9 Insulin: No Test blood sugar(s) 10--20 19 1 times daily. Dx: Type 2 DM - Controlled E11.9 Insulin: No Test blood sugar(s) 20 18 1x daily. Dx: Controlled DM type 2. Insulin: No Test blood sugar(s) --20 19 1 times daily. Dx: Type 2 DM - Controlled E11.9 Insulin: No Test blood sugar(s) 05-20 18 1 times daily. Dx: Type 2 DM - Controlled E11.9 Insulin: No Test blood sugar(s) 20 18 1x daily. Dx: Controlled DM type 2. Insulin: No Test blood sugar(s) 10--20 19 1 times daily. Dx: Type 2 DM - Controlled E11.9 Insulin: No Use as instructed 03-23-2011 Test blood sugar(s) 05-20 18 1 times daily. Dx: Type 2 DM - Controlled E11.9 Insulin: No Test blood sugar(s) 10--20 19 1 times daily. Dx: Type 2 DM - Controlled E11.9 Insulin: No Test blood sugar(s) 02-20-20 18 1x daily. Dx: Controlled DM type 2. Insulin: No Use as instructed 03-23-2011 Test blood sugar(s) 03-05-20 18 1 times daily. Dx: Type 2 DM - Controlled E11.9 Insulin: No Chief Complaint Chief Complaint Description Start Date back post Bilateral posterior microdecompression L3-L5; microdiscectomy right L4-L5; Posterolateral fusion L3-L5 on 01/16/2019 Preliminary chief complaint data, not yet signed by the author as of Chief Complaint Description Start Date lower back post Bilateral posterior microdecompression L3-L5; microdiscectomy right L4-L5; Posterolateral fusion L3-L5 on 01/16/2019 Preliminary chief complaint data, not yet signed by the author as of Chief Complaint Description Start Date lower back post Bilateral posterior microdecompression L3-L5; microdiscectomy right L4-L5; Posterolateral fusion L3-L5 on 01/16/2019 Preliminary chief complaint data, not yet signed by the author as of Chief Complaint Description Start Date bilateral back post Revision bilateral microdecompression microdiscectomy L2-3 explore L3-5 fusion possible instrumentation removal fusion and re-instrumentation L2-3 on 02/08/2020 Preliminary chief complaint data, not yet signed by the author as of Advance Directives No Advanced Directives Records Found Documents on File Type Date Recorded 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 Advance Directive(s) 08/16/2006 12:00 AM Advance Directive(s) 11/05/2008 9:30 PM Advance Directive(s) 01/27/2016 10:36 AM Assessments Diagnosis 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 Family History There may be information available, but it has not been provided by the sender.There may be information available, but it has not been provided by the sender.There may be information available, but it has not been provided by the sender.There may be information available, but it has not been provided by the sender.No Family History Records Found History of Present Illness There may be information available, but it has not been provided by the sender.There may be information available, but it has not been provided by the sender.There may be information available, but it has not been provided by the sender.There may be information available, but it has not been provided by the sender. History of Past Illness Problem Noted Date Resolved Date Recurrent UTI 07/03/2011 01/06/2016 Other specified disorder of bladder 07/25/201001/2016 Other physical therapy 06/21/2010 01/06/2016 Abdominal pain, generalized 10/29/2008 04/18/2010 Abdominal pain, other specified site 06/29/2008 RECURRENT UTI's 03/22/2008 04/18/2010 Abdominal pain, right upper quadrant 04/05/2006 Ventral hernia, unspecified, without mention of obstruction 10/23/2005 04/18/2010 or gangrene Pain in limb 05/15/2005 04/18/2010 Other tenosynovitis of hand and wrist 05/01/2005 Follow-up examination following surgery 07/18/2004 04/18/2010 Lateral epicondylitis of elbow 12/22/2002 0 Problem Noted Date Resolved Date Recurrent UTI 07/03/2011 01/06/2016 Other specified disorder of bladder 07/25/201001/2016 Other physical therapy 06/21/2010 01/06/2016 Abdominal pain, generalized 10/29/2008 04/18/2010 Abdominal pain, other specified site 06/29/2008 RECURRENT UTI's 03/22/2008 04/18/2010 Abdominal pain, right upper quadrant 04/05/2006 Ventral hernia, unspecified, without mention of obstruction 10/23/2005 04/18/2010 or gangrene Pain in limb 05/15/2005 04/18/2010 Other tenosynovitis of hand and wrist 05/01/2005 Follow-up examination following surgery 07/18/2004 04/18/2010 Lateral epicondylitis of elbow 12/22/2002 0 Problem Noted Date Resolved Date Recurrent UTI 07/03/2011 01/06/2016 Other specified disorder of bladder 07/25/201001/2016 Other physical therapy 06/21/2010 01/06/2016 Abdominal pain, generalized 10/29/2008 04/18/2010 Abdominal pain, other specified site 06/29/2008 RECURRENT UTI's 03/22/2008 04/18/2010 Abdominal pain, right upper quadrant 04/05/2006 Ventral hernia, unspecified, without mention of obstruction 10/23/2005 04/18/2010 or gangrene Pain in limb 05/15/2005 04/18/2010 Other tenosynovitis of hand and wrist 05/01/2005 Follow-up examination following surgery 07/18/2004 04/18/2010 Lateral epicondylitis of elbow 12/22/2002 0 Summary Purpose Additional Source Comments FOR RECORDS PERTAINING TO PATIENTS WHO ARE OR HAVE BEEN ENROLLED IN A CHEMICAL DEPENDENCY/SUBSTANCE ABUSE PROGRAM, SOME INFORMATION MAY BE OMITTED. This clinical summary was aggregated from multiple sources. Caution should be exercised in using it in the provision of clinical care. This summary normalizes information from multiple sources, and as a consequence, information in this document may materially changethe coding, format and clinical context of patient data. In addition, data may be omittedin some cases. CLINICAL DECISIONS SHOULD BE BASED ON THE PRIMARY CLINICAL RECORDS. [facility] provides no warranty or guarantee of the accuracy or completeness of information in this document. UNRECOGNIZED CONTENT PROVIDED BELOW FOR UNRECOGNIZED SECTION Reason for Visit Reason For Visit Description Start Date Postop - 1st visit Preliminary reason for visit data, not yet signed by the author as of back post Bilateral posterior microdecompression L3-L5; microdiscectomy right L4-L5; Posterolateral fusion L3-L5 on 01/16/2019 Reason For Visit Description Start Date Postop - subsequent visit Preliminary reason for visit data, not yet signed by the author as of lower back post Bilateral posterior microdecompression L3-L5; microdiscectomy right L4-L5; Posterolateral fusion L3-L5 on 01/16/2019 Reason For Visit Description Start Date Postop - subsequent visit Preliminary reason for visit data, not yet signed by the author as of lower back post Bilateral posterior microdecompression L3-L5; microdiscectomy right L4-L5; Posterolateral fusion L3-L5 on 01/16/2019 Reason For Visit Description Start Date Postop - 1st visit Preliminary reason for visit data, not yet signed by the author as of bilateral back post Revision bilateral microdecompression microdiscectomy L2-3 explore L3-5 fusion possible instrumentation removal fusion and re-instrumentation L2-3 on 02/08/2020 Reason Onset Date Comments Medication Question 02/24/2020 Reason Onset Date Comments Refill Request 03/15/2020 Reason Onset Date Comments Refill Request 03/31/2020 Reason Onset Date Comments Refill Request 04/01/2020 UNRECOGNIZED CONTENT PROVIDED BELOW FOR UNRECOGNIZED SECTION Source Comments In the event this information is protected by the Federal Confidentiality of Alcohol and Drug Abuse Patient Records regulations: The Federal rules restrict any use of the information to criminally investigate or prosecute any alcohol or drug abuse patient.[facility] the event this information is protected by the Federal Confidentiality of Alcohol and Drug Abuse Patient Records regulations: The Federal rules restrict any use of the information to criminally investigate or prosecute any alcohol or drug abuse patient.[facility] Hospital[facility] the event this information is protected by the Federal Confidentiality of Alcohol and Drug Abuse Patient Records regulations: The Federal rules restrict any use of the information to criminally investigate or prosecute any alcohol or drug abuse patient.[facility] HospitalIn the event this information is protected by the Federal Confidentiality of Alcohol and Drug Abuse Patient Records regulations: The Federal rules restrict any use of the information to criminally investigate or prosecute any alcohol or drug abuse patient.[facility] HospitalIn the event this information is protected by the Federal Confidentiality of Alcohol and Drug Abuse Patient Records regulations: The Federal rules restrict any use of the information to criminally investigate or prosecute any alcohol or drug abuse patient.[facility] UNRECOGNIZED CONTENT PROVIDED BELOW FOR UNRECOGNIZED SECTION Miscellaneous Notes Telephone Encounter - Mayra Ruiz LPN - 02/26/2020 1:13 PM EDTPt returned call to office. Notified of the same. Mayra Ruiz LPN elephone Encounter - Ivis Montelongo LPN - 02/26/2020 11:02 AM EDTMessage left for pt to return call to a nurse. elephone Encounter - Mati Montenegro - 02/25/2020 4:53 PM EDT Patient did not fill a RX for oxycontin. Noted that surgeon will be taking over pain meds 03/04.Looks like needed to take 3 to 4 pills a day after surgery. Okay RX. The following approved medication requests have been transmitted electronically. Signed Prescriptions Disp Refills HYDROcodone-acetaminophen (NORCO) 5-325 mg per tablet 32 tablet 0 Sig: Take 1 tablet by mouth every 6 hours as needed for Pain for up to 8 days. May fill today secondary to increased pain after surgery JOSE Class: C-II ROSARIO: No Authorizing Provider: MATI MONTENEGRO MD elephone Encounter - Jake FishChief [employer]) - 02/25/2020 3:14 PM EDTShe has an active norco script through Mar 07. Was filled on 02/05. Will check with Mati Montenegro MD to see if she wants to give additional elephone Encounter - Beata Das - 02/25/2020 10:08 AM EDTPatient is calling to check on the status; she is requesting a phone call today, please. Telephone Encounter - Arley Glover RN - 02/24/2020 10:17 AM EDTPt called, verified by name and birthdate. Pt states she had surgery and was given Oxycontin but didnot use them. Pt states she took her [place] instead. Pt is now out of [place] and wants to know if PCP will write [place] to last until 03-04-2020. Pt states her surgeon will begin writing narcotics for her at that time. Please advise Arley Glover RN documented in this encounterTelephone Encounter - Chelsea Farris LPN - 03/15/2020 10:11 AM EDT Call from patient requesting refill. Pending Prescriptions Disp Refills LEVOTHYROXINE 50 MCG TABLET 30 tablet 5 Sig: Take 1 tablet by mouth daily before breakfast. ID# [id number] ROSARIO: No Patient last seen 02/05/2020 Chelsea Farris LPN elephone Encounter - Susan Mcgill - 03/15/2020 8:26 AM EDT Patient has been identified by name and date of : Yes Last office visit in this department: 02/05/2020 RX INSTRUCTIONS: Patient aware RX will be sent to pharmacy. No need to notify patient. Patient phones requesting refills as follows: Pending Prescriptions Disp Refills LEVOTHYROXINE 50 MCG TABLET 30 tablet 2 Sig: Take 1 tablet by mouth daily before breakfast. ID# [id number] ROSARIO: No Please review and advise. Susan Naranjo Pss documented in this encounterTelephone Encounter - Denise Parker - 03/31/2020 10:00 AM EDT Patient has been identified by name and date of : Yes Pending Prescriptions Disp Refills GLIMEPIRIDE 1 MG TABLET 90 tablet 3 Sig: Take 1 tablet by mouth daily with breakfast. ID# [id number] ROSARIO: No RX INSTRUCTIONS: Patient aware RX escripted to mail away pharmacy. No need to notify patient. Denise Traore Pss documented in this encounterTelephone Encounter - Mati Montenegro - 04/01/2020 8:00 PM EDT The following approved medication requests have been transmitted electronically. Signed Prescriptions Disp Refills HYDROcodone-acetaminophen (NORCO) 5-325 mg per tablet 60 tablet 0 Sig: Take 1 tablet by mouth every 6 hours as needed for Pain for up to 30 days. JOSE Class: C-II ROSARIO: No Authorizing Provider: MATI MONTENEGRO MD Make sure has follow up Looks like no longer following for post op pain with surgeon. She has October appointment with Jake elephone Encounter - Bobbi Quinonez - 04/01/2020 4:19 PM EDT Patient has been identified by name and date of : Yes Pending Prescriptions Disp Refills HYDROCODONE 5 MG-ACETAMINOPHEN 325 MG TABLET 60 tablet 0 Sig: Take 1 tablet by mouth every 6 hours as needed for Pain for up to 30 days. JOSE Class: C-II ROSARIO: No RX INSTRUCTIONS: Patient aware RX will be sent to pharmacy. No need to notify patient. Bobbi Quinonez documented in this encounter UNRECOGNIZED CONTENT PROVIDED BELOW FOR UNRECOGNIZED SECTION INFORMATION SOURCE DATE CREATED AUTHOR AUTHOR'S ORGANIZATIO N 04/14/2020 [facility] Manny mcdaniel
--- OUTSIDE RECORDS SUMMARY | 2020-04-17 11:24 | XMS RPT_ITS | CCD ---
:1940 External Reference #:[id number] Author Organization [facility] Care Team Providers Name Role Phone Kathy CARDIAC TECH-BUSINESS SERVICES CLERK Unavailable Brianda Ibrahim DO Unavailable Brianda Montenegro Primary Care Provider Brianda Ibrahim Unavailable Allergies Reported Allergen Reaction(s) Severity Date of Location Onset Adhesive Tape Critical, 11-13-2018 - [facility] Translations: [ [facility] ADHESIVE TAPE] - [facility] ([id number]) Adhesive Tape Other: See 03-03-2013 - [facility] Comments (66850) Benzodiazepines Mental Status Critical, 12-22-2002 - [place] [facility] Change Critical [facility] (54067) Ciprofloxacin Critical, 11-13-2018 - [facility] (37655) Ciprofloxacin Itching 04-27-2008 - [facility] (00833) Latex Translations: [ Rash Critical, 12-22-2002 - [facility] LATEX] Critical [facility] (53809) LORazepam Critical, 11-13-2018 - [facility] Critical Orthopaedic [facility] (18005) LORazepam Mental Status 12-27-2015 - [facility] Change (74540) Meperidine Critical, 11-13-2018 - [facility] (65957) Meperidine 05-04-2005 - [facility] (31926) Nitrofurantoin Critical, 11-13-2018 - [place] [facility] Critical Orthopaedic [facility] Orthopaedic [facility] (73224) NITROFURANTOIN, GI Upset Moderate 01-10-2009 - [facility] MACROCRYSTALS / (58432) Nitrofurantoin, Monohydrate Sulfacetamide Critical, 11-13-2018 - [facility] Orthopaedic [facility] Orthopaedic [facility] (33405) Sulfonamides Other: See 12-22-2002 - [facility] (Antibiotic) Comments (12496) XANTHINES Critical, 12-22-2002 - [facility] (85255) Medications Medication Name Sig Date Prescriber Location Acetaminophen / HYDROcodone-acetami 01-07-2020 Jake (Tablet Technician) [facility] HYDROcodone nophen (NORCO) - [place] [facility] enter 5-325 mg per tablet 05-01-2020 - Orthop aedic Indications: [facility] Chronic bilateral (68712) low back pain with bilateral sciatica , Chronic back pain greater than 3 months duration , Fibromyalgia Take 1 tablet by mouth every 6 hours as needed for Pain for up to 30 days. Do not start before February 06, 2020. 60 tablet 0 02/06/2020 04/01/2020 Discontinued NORCO 5-325 MG TABS one tablet every six 06-30-2019 [facility] Orthopaedic hours as needed for pain [place] - [facility] HYDROCODONE-ACETAMINOPHEN [phone] [facility] (70966) Brianda Ibrahim DO Comment: Take 1 tablet [...] PERCOCET 5-325 MG TABS Take 01-26-2019 - [facility] oxyCODONE 1 tablet by mouth every 6 02-10-2019 [place] Or thopaedic hours as needed for pain CARDIAC TECH-BUSINESS SERVICES CLERK [facility] ter - Orthop aedic OXYCODONE-ACETAMINOPHEN Surg eons [phone] [facility] (78957) [place] CARDIAC TECH-[facility] Acyclovir ACYCLOVIR 5 % OINT apply 11-13-2018 [facility] stal [facility] for 6 days as needed Orthopa edic ACYCLOVIR [place] - [phone] Leigh Romeo [facility] [place] CARDIAC TECH-[facility] (28883) acyclovir (ZOVIRAX) 5 % 04-25-2012 Mati Montenegro [facility] Orthopaedic ointment Apply [address] - [facility]geons for 7 days for cold sores 15 Cli bria (64979) g 3 04/25/2012 Active Comment: Apply 6 times daily for 7 da ys for cold sores atorvastatin atorvastatin (LIPITOR) 06-23-2019 Mati Montenegro [facility] 20 mg tablet Take 1 Orthopae dic Center - tablet by mouth once Orthopa edic Surgeons daily. 90 tablet 3 Clinic ([id number]) 06/23/2019 Active ATORVASTATIN CALCIUM TABS 1 tab daily 11-13-2018 [facility] - ATORVASTATIN CALCIUM TABS [facility] (31542) [phone] Leigh Larios CARDIAC TECH-[facility] ATORVASTATIN CALCIUM TABS 1 tab daily 11-13-2018 [facility] - ATORVASTATIN CALCIUM TABS [facility] (41840) [id number] Leigh Larios CARDIAC TECH-[facility] ATORVASTATIN CALCIUM TABS 1 tab daily 11-13-2018 [facility] - ATORVASTATIN CALCIUM TABS [facility] (24987) [phone] Leigh Larios CARDIAC TECH-[facility] ATORVASTATIN CALCIUM TABS 1 tab daily 11-13-2018 [facility] - ATORVASTATIN CALCIUM TABS [facility] (86247) [phone] Leigh Larios CARDIAC TECH-[facility] Comment: Take 1 tablet by mouth once daily. BD LUER-MARLIN SYRINGE BD LUER-MARLIN SYRINGE 04-04-2017 Mati Brianda Luceroa [facility] 3 mL 23 x 1 syrg 3 mL 23 x 1 syrg ([id number]) USE FOR B-12 INJECTIONS EVERY 3 WEEKS OR DIRECTED 8 Syringe 3 04/04/2017 Active BD LUER-MARLIN SYRINGE 3 mL 23 x 1 04-04-2017 Mati D [facility] (59864) syrg USE FOR B-12 INJECTIONS EVERY 3 WEEKS OR DIRECTED 8 Syringe 3 04/04/2017 Active BD LUER-MARLIN SYRINGE 3 mL 23 x 1 04-04-2017 Mati D [facility] (39807) syrg USE FOR B-12 INJECTIONS EVERY 3 WEEKS OR DIRECTED 8 Syringe 3 04/04/2017 Active BD LUER-MARLIN SYRINGE 3 mL 23 x 1 04-04-2017 Mati D [facility] (48869) syrg USE FOR B-12 INJECTIONS EVERY 3 WEEKS OR DIRECTED 8 Syringe 3 04/04/2017 Active BD LUER-MARLIN SYRINGE 3 mL 23 x 1 04-04-2017 Mati D [facility] (58842) syrg USE FOR B-12 INJECTIONS EVERY 3 WEEKS OR DIRECTED 8 Syringe 3 04/04/2017 Active Comment: USE FOR B-12 INJECTIONS EVER Y 3 WEEKS OR DIRECTED Betamethasone / betamethasone 09-07-2019 Vidal Dennis [facility] Betamethasone acetate-betamethasone Clini (18409) acetate sodium phosphate 6 mg injection (CELESTONE) Blood-Glucose Meter Blood-Glucose Meter 03-05-[address] [facility]ucose [facility] (74393[facility] Meter of Choice - Kit - Dx: Type 2 DM - Controlled E11.9 Test blood sugar 1 time daily. 1 Each 0 03/05/2018 Active Blood-Glucose Meter monitoring 03-05-2018 Mat[place] D [place] [facility] (47096) kit Glucose Meter of Choice - Kit - Dx: Type 2 DM - Controlled E11.9 Test blood sugar 1 time daily. 1 Each 0 03/05/2018 Active Blood-Glucose Meter monitoring 03-05-2018 Mati D [place] [facility] (67080) kit Glucose Meter of Choice - Kit - Dx: Type 2 DM - Controlled E11.9 Test blood sugar 1 time daily. 1 Each 0 03/05/2018 Active Blood-Glucose Meter monitoring 03-05-2018 Mat[place] D [place] [facility] (21414) kit Glucose Meter of Choice - Kit - Dx: Type 2 DM - Controlled E11.9 Test blood sugar 1 time daily. 1 Each 0 03/05/2018 Active Blood-Glucose Meter monitoring 03-05-2018 Mat[place] D [place] [facility] (96427) kit Glucose Meter of Choice - Kit - Dx: Type 2 DM - Controlled E11.9 Test blood sugar 1 time daily. 1 Each 0 03/05/2018 Active Blood-Glucose Meter monitoring 02-20-2018 Mayra he [facility] (10748) kit Indications: Controlled type 2 diabetes mellitus without complication, without long-term current use of insulin ([facility]) Glucose Meter of Choice, insurance preferred - Kit - Dx: Type 2 DM - Controlled E11.9 1 Each 0 02/20/2018 Active Blood-Glucose Meter monitoring 02-20-2018 [facility]ra [facility] (22256) kit Indications: Controlled type 2 diabetes mellitus without complication, without long-term current use of insulin ([facility]) Glucose Meter of Choice, insurance preferred - Kit - Dx: Type 2 DM - Controlled E11.9 1 Each 0 02/20/2018 Active Blood-Glucose Meter monitoring 02-20-2018 Mayra ([facility]) [facility] (33187) kit Indications: Controlled type 2 diabetes mellitus without complication, without long-term current use of insulin ([facility]) Glucose Meter of Choice, insurance preferred - Kit - Dx: Type 2 DM - Controlled E11.9 1 Each 0 02/20/2018 Active Blood-Glucose Meter monitoring 02-20-2018 Mayra [employer] [facility] (03326) kit Indications: Controlled type 2 diabetes mellitus without complication, without long-term current use of insulin ([facility]) Glucose Meter of Choice, insurance preferred - Kit - Dx: Type 2 DM - Controlled E11.9 1 Each 0 02/20/2018 Active Blood-Glucose Meter monitoring 02-20-2018 Mayra ([facility]) [facility] (25203) kit Indications: Controlled type 2 diabetes mellitus without complication, without long-term current use of insulin ([facility]) Glucose Meter of Choice, insurance preferred - [...] time daily. buPROPion buPROPion XL 11-13-2018 Jake ([facility]) Abe Chavis linic (WELLBUTRIN XL) 150 mg Ortho paedic Center - 24 hr tablet Take 1 Orthopae dic Surgeons tablet by mouth once Clinic (29444) daily. ID# [id number] 90 tablet 3 12/10/2019 Active Comment: Take 1 tablet by mouth once daily. ID# [id number] Calcium Carbonate calcium carbonate (CALCIUM Ccf Provi kimmy [facility] (91565) 600 ORAL) Take by mouth. 0 Active calcium carbonate (CALCIUM 600 ORAL) Take by Ccf Provider [facility] (83451) mouth. 0 Active calcium carbonate (CALCIUM 600 ORAL) Take by Ccf Provider [facility] (75426) mouth. 0 Active calcium carbonate (CALCIUM 600 ORAL) Take by Ccf Provider [facility] (03311) mouth. 0 Active calcium carbonate (CALCIUM 600 ORAL) Take by Ccf Provider [facility] (46434) mouth. 0 Active Comment: Take by mouth. Cholecalciferol VITAMIN D 1000 UNIT ORAL 11-13-2018 [facility] Orthopaedic TABLET 1 tab daily [place] - Orthopaedic CHOLECALCIFEROL [phone] [facility] Clinic (30358) Leigh Larios CARDIAC TECH-BUSINESS SERVICES CLERK cholecalciferol (VITAMIN D) 01-13-2016 Mati Montenegro [facility] Orthopaedic 1,000 unit tab tablet Take 2 [facility] - Orthopaedic tablets by mouth once daily. 0 S [facility] (28824) 01/13/2016 Active Comment: Take 2 tablets by mouth once daily. colesevelam WELCHOL 625 MG TABS 11-13-2018 [facility] 1 tab twice daily Orthopaedi c Center - Orthopaedic Sujey geons [facility] (4433 3) [phone] Leigh Larios CARDIAC TECH-BUSINESS SERVICES CLERK Cranberry preparation Cranberry Extract Ccf Provider [facility] 200 mg cap Take 800 (80009) mg by mouth. 0 Active Comment: Take 800 mg by mouth. cyclobenzaprine cyclobenzaprine 06-30-2019 Mati Montenegro [facility] (FLEXERIL) 10 mg tablet (441 95) Indications: Fibromyalgia Take 1 tablet by mouth daily at bedtime. ID# [id number] 90 tablet 3 06/30/2019 Active Comment: Take 1 tablet by mouth daily at bedtime. ID# [id number] Docusate docusate sodium (COLACE) 01-07-2020 Jake (Tablet Technician) [facility] 100 mg capsule Take 1 (26882 ) capsule by mouth twice daily as needed for Constipation. While taking hydrocodone ([place]) 60 capsule 2 01/07/2020 Active Comment: Take 1 capsule by mouth twic e daily as needed for Constipation. While taking hydrocodone ([place]) Famotidine famotidine (PEPCID) 20 mg 12-10-2019 Jake ([facility]) Cl jennifer Clinic tablet Indications: Fish (67188) gastroesophageal reflux disease Take 1 tablet by mouth twice daily. take for one month while taking celocoxib 60 tablet 0 12/10/2019 Active Comment: Take 1 tablet by mouth twice daily. take for one month while taking celocoxib Furosemide furosemide (LASIX) 20 09-14-2019 Jake ([facility]) [facility] mg tablet Take 1 tablet (441 95) by mouth once daily. as needed for leg swelling. 30 tablet 0 09/14/2019 Active Comment: Take 1 tablet by mouth once daily. as needed for leg swelling. gabapentin gabapentin 12-10-2019 - [facility] ([facility]) [facility] (NEURONTIN) 300 mg 06-10-2020 [place] [facility] capsule Indications: - Ortho paedic Chronic back pain Surgeons C linic greater than 3 months (93878 ) duration Take 2 capsules in the morning, 3 capsules at bedtime 450 capsule 3 12/10/2019 06/10/2020 Active GABAPENTIN 300 MG CAPS 2 caps once 11-13-2018 [facility] Orthopaedic [place] - daily and 3 caps at bedtime Orth [facility] Surgeons Clinic (35588) GABAPENTIN [id number] Sobeida Chavez CARDIAC TECH-BUSINESS SERVICES CLERK GABAPENTIN 300 MG CAPS 2 caps twice 11-13-2018 [facility] Orthopaedic [place] - daily GABAPENTIN Orth [facility] (93294) [phone] Leigh Larios CARDIAC TECH-BUSINESS SERVICES CLERK Comment: Take 2 capsules in the morni ng, 3 capsules at bedtime glimepiride glimepiride (AMARYL) 11-13-2018 - [facility] ([facility]) [facility] 1 mg tablet Take 1 03-31-2020 [place] [facility] tablet by mouth - Orthopaedi c daily with Surgeons Clinic breakfast. ID# ([id number]) [id number] 90 tablet 3 03/31/2020 Active Comment: Take 1 tablet by mouth daily with breakfast. ID# [id number] levothyroxine levothyroxine 12-07-2019 - [facility] [place]ar [place] [facility] (SYNTHROID) 50 mcg 03-15-2020 Orthopaed ic Center tablet Take 1 tablet - Orth[facility] paedic by mouth daily [facility] breakfast. ID# ([id number]) [id number] 30 tablet 5 03/15/2020 Active LEVOTHYROXINE SODIUM 25 MCG TABS 1 11-13-2018 [facility] Orthopaedic [place] - tab daily LEVOTHYROXINE Orthopaedic [facility] (11675) SODIUM [id number] Leigh Larios CARDIAC TECH-BUSINESS SERVICES CLERK Comment: Take 1 tablet by mouth daily before breakfast. ID# [id number] Lidocaine lidocaine (PF) 10 mg/mL 09-07-2019 Vidal Dennis jennifer Clinic (1 %) 2 mL injection (08258) (XYLOCAINE) Lisinopril lisinopril (ZESTRIL, 08-13-2019 Jake ([facility]) [facility] rystal Clinic PRINIVIL) 10 mg tablet Ortho paedic Center - Take 1 tablet by mouth Ortho paedic Surgeons once daily. As directed Clin ic (54994) ID# [id number] 90 tablet 3 08/13/2019 Active LISINOPRIL 10 MG TABS 1 tab twice 11-13-2018 [facility] Orthopaedic [place] - daily LISINOPRIL Orth opaedic Surgeons Clinic (32151) [id number] Leigh Larios CARDIAC TECH-BUSINESS SERVICES CLERK Comment: Take 1 tablet by mouth once daily. As directed ID# [id number] Melatonin melatonin 10 mg tab 10-11-2014 Mati Mont[place] [facility] Indications: Insomnia Orthop aedic Center - Take 10 mg by mouth daily Or thopaedic Surgeons at bedtime. 0 10/11/2014 Cli bria (36837) Active Comment: Take 10 mg by mouth daily at bedtime. metFORMIN metFORMIN (GLUCOPHAGE) 11-13-2018 Jake ([facility]) [facility] 850 mg tablet [facility] nter - Indications: Controlled Orth opaedic Surgeons type 2 diabetes mellitus Cli bria (92505) without complication, without long-term current use of insulin (HCC) Take 1 tablet by mouth twice daily with meals. ID# [id number] 60 tablet 1 11/09/2019 Active Comment: Take 1 tablet by mouth twice daily with meals. ID# [id number] Mirtazapine mirtazapine (REMERON) 11-13-2018 Mat[facility] [place] [facility] 15 mg tablet Take 1 Orthopae dic Center - tablet by mouth daily Orthop aedic Surgeons at bedtime. ID# Clinic (4433 3) [id number] 90 tablet 3 06/23/2019 Active Comment: Take 1 tablet by mouth daily at bedtime. ID# [id number] Multivitamin capsule Multivitamin capsule 10-11-2016 [facility] Take 1 capsule by (54192) mouth once daily. 0 10/11/2016 Active Multivitamin capsule Take 1 capsule 10-11-2016 [facility] (36156) by mouth once daily. 0 10/11/2016 Active Multivitamin capsule Take 1 capsule 10-11-2016 [facility] (69969) by mouth once daily. 0 10/11/2016 Active Multivitamin capsule Take 1 capsule 10-11-2016 [facility] (01233) by mouth once daily. 0 10/11/2016 Active Multivitamin capsule Take 1 capsule 10-11-2016 [facility] (73064) by mouth once daily. 0 10/11/2016 Active Comment: Take 1 capsule by mouth once daily. Nystatin nystatin (MYCOSTATIN) 08-13-2019 Jake (Tablet Technician) [facility] 100,000 unit/mL (46129) suspension One teaspoon swish in mouth for several minutes then swallow (or expectorate) four times daily. Use until gone. 200 mL 0 08/13/2019 Active Comment: One teaspoon swish in mouth for several minutes then swallow (or expectorate) four times miriam y. Use until gone. PARoxetine PARoxetine (PAXIL) 10 11-13-2018 Mati Montenegro [facility] mg tablet Take 1 tablet Orth [facility] - by mouth once daily. Orthopa edic Surgeons ID# [id number] 90 tablet Clini c (86646) 3 06/23/2019 Active Comment: Take 1 tablet by mouth once daily. ID# [id number] perflutren lipid perflutren lipid 02-04-2020 - [place] Eric nd microspheres microspheres (DEFINITY) 02-03-2021 Jas Iraheta Cli b[facility] (62747) (DEFINITY) 1.1 1.1 mg/mL injection (to mg/mL [...] 02/04/2020 02/03/2021 Active perflutren lipid 02-04-2020 - [facility] Clini c microspheres (DEFINITY) 1.1 02-03-2021 [place] [...] 02/04/2020 02/03/2021 Active perflutren lipid 02-04-2020 - [facility] Clini c microspheres (DEFINITY) 1.1 02-03-2021 [place] [...] 02/04/2020 02/03/2021 Active perflutren lipid 02-04-2020 - [facility] Clini c microspheres (DEFINITY) 1.1 02-03-2021 [place] [...] 02/04/2020 02/03/2021 Active perflutren lipid 02-04-2020 - [facility] Clini c microspheres (DEFINITY) 1.1 02-03-2021 [place] [...] 02/04/2020 02/03/2021 Active perflutren lipid 06-09-2019 - [facility] Clini c microspheres (DEFINITY) 1.1 06-08-2020 [place] (441 95) mg/mL injection (to be provided with echo procedure) Inject 1.3 mL intravenously as directed. 1.3 mL 0 06/09/2019 06/08/2020 Active perflutren lipid [facility] micro[facility] (DEFINITY) 1.1 06-08-2020 [place] (441 95) mg/mL injection (to be provided with echo procedure) Inject 1.3 mL intravenously as directed. 1.3 mL 0 06/09/2019 06/08/2020 Active perflutren lipid 06-09-2019 [facility] microspheres (DEFINITY) 1.1 06-08-2020 [place] (441 95) mg/mL injection (to be provided with echo procedure) Inject 1.3 mL intravenously as directed. 1.3 mL 0 06/09/2019 06/08/2020 Active perflutren lipid 06-09-2019 - Clara Mark [facility] Clini c microspheres (DEFINITY) 1.1 06-08-2020 [place] (441 95) mg/mL injection (to be provided with echo procedure) Inject 1.3 mL intravenously as directed. 1.3 mL 0 06/09/2019 06/08/2020 Active perflutren lipid 06-09-2019 - Clara Mark [facility] Clini c microspheres (DEFINITY) 1.1 06-08-2020 [place] [...] Inject 1.3 mL intravenously as directed. PNV Cmb#22-Umem-Beqho Acid PNV Cmb#14-Zbqm-Uqlcs Acid Ccf Provider [facility] ( COMPLETE) 14 mg ( COMPLETE) 14 mg (42610) iron- 400 mcg tab iron- 400 mcg tab Take by mouth. Pt is taking 2 tablets daily 0 Active PNV Cmb#87-Ebwj-Xpiom Acid ( Ccf Provide [facility] (02013) COMPLETE) 14 mg iron- 400 mcg tab Take by mouth. Pt is taking 2 tablets daily 0 Active PNV Cmb#29-Fwos-Beahr Acid ( Ccf Provide [facility] (96097) COMPLETE) 14 mg iron- 400 mcg tab Take by mouth. Pt is taking 2 tablets daily 0 Active PNV Cmb#87-Cnmt-Ntpap Acid ( Ccf Provide [facility] (87551) COMPLETE) 14 mg iron- 400 mcg tab Take by mouth. Pt is taking 2 tablets daily 0 Active PNV Cmb#67-Ukgx-Vrook Acid ( Ccf Provide [facility] (43755) COMPLETE) 14 mg iron- 400 mcg tab Take by mouth. Pt is taking 2 tablets daily 0 Active Comment: Take by mouth. Pt is taking 2 tablets daily Potassium Chloride potassium chloride SR 05-20-2018 [facility] ([facility]) [facility] (MICRO-K) 10 mEq CR Fish (61276) capsule Take 1 capsule by mouth once daily. once daily for three days then once daily when taking furosemide. 30 capsule 0 05/20/2018 Active Comment: Take 1 capsule by mouth once daily. once daily for three days then once daily when taking furosemide . Vitamin B 12 cyanocobalamin 1,000 10-29-2019 [facility] ([facility]) [facility] mcg/mL 1 mL IM every 3 [facility] paedic [place] - weeks 18 Vial 1 Orthopaedic Surgeons 10/29/2019 Active Clinic (25 521) B-12 1000 MCG TABS 1 tab daily 11-13-2018 [facility] Orthopaedic CYANOCOBALAMIN Center - Orthopaedic Surgeons [phone] Leigh Larios C linic (34189) CARDIAC TECH-BUSINESS SERVICES CLERK cyanocobalamin (VITAMIN B-12) Ccf Provider [facility] Orthopaedic 500 mcg tab tab(s) Take by mouth Center - Orthopaedic Surgeons once daily. 0 Active Clinic (802 48) Comment: 1 mL IM every 3 weeks Take by mouth once daily. Vitamin D VITAMIN D 1000 UNIT TABS 1 11-13-2018 [facility] tab daily Orthopa edic Center - CHOLECALCIFEROL [phone] Orthopaedic Surgeons Leigh Larios CARDIAC TECH-BUSINESS SERVICES CLERK Clinic (07928) Vitamin E Vitamin E, dl, acetate, Ccf Provider [facility] (VITAMIN E) 400 unit capsule (13973) Take 400 Units by mouth once daily. 0 Active Comment: Take 400 Units by mouth once daily. 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 Deficiency and other Pernicious anemia Active [facility] anemia (10146) Deficiency and other Iron deficiency anemia Active [facility] anemia (39692) Diabetes mellitus Type 2 diabetes mellitus Active 05-07-2005 [facility] without complication without complication - (23253) Disorders of lipid Hyperlipidemia Active [facility] metabolism (62563) Diverticulosis and Diverticulosis of colon Active 10-23-2005 [facility] diverticulitis - (72170) Essential hypertension Hypertensive disorder Active 9 [facility] - (28818) Gastroduodenal ulcer Peptic ulcer Active 10-23-2005 [facility] (except hemorrhage) - (79242) Genitourinary symptoms Urge incontinence of Active 07-16-2011 [facility] and ill-defined urine - (14683) conditions Heart valve disorders Aortic stenosis, Active 12-19-2018 [facility] non-rheumatic - (94805) Menopausal disorders Atrophic vaginitis Active 01-17-2009 [facility] - (58267) 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 - (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 Nutritional deficiencies Vitamin D deficiency Active 07-13-19 15 [facility] - (08664) Osteoarthritis Osteoarthritis Active [facility] lin (43758) Other acquired Acquired scoliosis Active 12-31-2019 [facility] deformities - Orthopaedic [facility] ter - Orthopaedic Surgeons [facility] (35678) Other acquired Spondylolisthesis Active 11-13-2018 [facility] deformities - Orthopaedic [facility] - Orthopaedic Surgeons [facility] (87841) Other bone disease and Disorder of skeletal Active 10-23-2005 [facility] musculoskeletal system - (76630) deformities Other connective tissue Bilateral trochanteric Active 016 [facility] disease bursitis - (36553) Other connective tissue Fibromyalgia Active 06-29-2008 [facility] disease - (76807) Other gastrointestinal Irritable bowel syndrome Active 2005 [facility] disorders - (82213) Other nervous system Chronic back pain greater Active [facility] disorders than three months (32185) duration Other non-traumatic Pain in right hip joint Active 06-02-2015 [facility] joint disorders - (33175) Spondylosis; Displacement of lumbar Active 05-22-2010 [facility] intervertebral disc intervertebral disc - [facility] disorders; other back without myelopathy - [facility]opaedic [facility] (89887) Thyroid disorders Hypothyroidism Active 01-07-2012 [facility] - (28026) Unclassified History of lumbar fusion Active 01-26-2019 [facility] - [facility] [address] - [facility] (71807) Unclassified Polypharmacy Active 07-03-2011 [facility] c - (60246) Unclassified Finding of region of Active 01-17-2009 [facility] thorax - (72909) Past or Other Problems Category Problem Name Status Date Location Abdominal pain Generalized [facility]28401) Administrative/social Marital conflict Completed 03-15-2014 [facility] admission (23672) Hemorrhoids Hemorrhoids Completed 06-29-2008 - [facility] c (60596) Joint disorders and Closed traumatic Completed 07-13-2008 - [facility] dislocations; dislocation of (16540) trauma-related distal radioulnar joint of wrist Other bone disease and Disorder of bone Completed 11-13-2018 [facility] deformities - [facility] (18799) Other connective tissue Trochanteric Completed 09-20-2016 [facility] disease bursitis (27842) Other connective tissue Triggering of digit Completed 12-25-2012 - [facility] disease (74715) Other connective tissue Acquired trigger Completed 03-30-2003 - [facility] disease finger (77551) Other connective tissue Soft tissue lesion Completed 12-22-2002 [facility] disease of shoulder region (57213) Other gastrointestinal History of bariatric Completed 10-11-2016 - [facility] disorders surgical procedure (16670) Other non-traumatic Hip pain Completed 09-20-2016 [facility] joint disorders (20329) Other non-traumatic Arthralgia of the Completed 02-02-2003 [facility] joint disorders upper arm (56320) Other non-traumatic Disorder of shoulder Completed 12-22-2002 [facility] joint disorders (55481) Residual codes; Insomnia Completed 07-25-2005 - [facility] inic unclassified (97233) Unclassified Problem [facility]opa[facility] [address] - [facility] (38149) Results Result Name Value Range Unit Interpretation Flag Date Location progress on 2020-03 PROGRESS HNO ID: [id number] Normal 04-14-2020 [facility] Author: Jake Ji) Abe Santiago ([id number]) Service: ? Author Type: Nurse Specialist Type: Progress Notes Filed: 04/14/2020 10:03 AM Note Text: SUBJECTIVE: Sonny Dennis is a 79 year old female. ADVANCE DIRECTIVE DISCUSSION due on 11/05/2013 URINE ALBUMIN:CREATININE RATIO due on 08/19/2018 DIABETIC FOOT EXAM due on 12/13/2019 HPI Chronic low back pain continues to be managed with gabapenti n and [place]. Notes she has reduced frequency of [place] with relief at the lower dose. Notes she has also reduced her dose of gabapentin. Without r eport of adverse effects, no reported OIC or sedation. No red flag co mplaints. Separately requests that she see stitcher utility and have echoc ardiogram in [place] rather than traveling to [place]. Has aortic stenosis , no chest pain, [...] by mouth miriam y with breakfast. ID# [id number] levothyroxine (SYNTHROID) 50 mcg tablet Take 1 tablet by angela daily before breakfast. ID# [id number] docusate sodium (COLACE) 100 mg capsule Take 1 capsule by mo uth twice daily as needed for Constipation. While taking hydrocodone ( [place]) buPROPion XL (WELLBUTRIN XL) 150 mg 24 hr tablet Take 1 tabl et by mouth once daily. ID# [id number] gabapentin (NEURONTIN) 300 mg capsule Take 2 capsules in the morning, 3 capsules at bedtime famotidine (PEPCID) 20 mg tablet Take 1 tablet by mouth twic e daily. take for one month while taking celocoxib metFORMIN (GLUCOPHAGE) 850 mg tablet Take 1 tablet by mouth twice daily with meals. ID# [id number] cyanocobalamin 1,000 mcg/mL 1 mL IM every 3 weeks furosemide (LASIX) 20 mg tablet Take 1 tablet by mouth once daily. as needed for leg swelling. lisinopril (ZESTRIL, PRINIVIL) 10 mg tablet Take 1 tablet by mouth once daily. As directed ID# [id number] nystatin (MYCOSTATIN) 100,000 unit/mL suspension One teaspoo n swish in mouth for several minutes then swallow (or expectorate) four times daily. Use until gone. cyclobenzaprine (FLEXERIL) 10 mg tablet Take 1 tablet by angela th daily at bedtime. ID# [id number] atorvastatin (LIPITOR) 20 mg tablet Take 1 tablet by mouth o nce daily. mirtazapine (REMERON) 15 mg tablet Take 1 tablet by mouth da eb at bedtime. ID# [id number] PARoxetine (PAXIL) 10 mg tablet Take 1 tablet by mouth once daily. ID# [id number] calcium carbonate (CALCIUM 600 ORAL) Take by [...] DM - Controlled E11.9 Insulin: No PNV Cmb#21-Omwb-Toszj Acid ( COMPLETE) 14 mg iron- 4 [...] by mouth twice daily with meals. ID# [id number] perflutren lipid microspheres (DEFINITY) 1.1 mg/mL injection [...] if able. Would like to see a stitcher utility and have echocardiogram in [place], consult placed Continue Q2 mo follow up Jake Fish APRN.JANNY cnov on 2020-04-14 CNOV Office Visit (INTMWS) Normal 04-14- 20 [place] SONNY DENNIS ([id number]) 1940 [address] [place] Date Time Provider Department ([id number]) 04/14/20 8:40 AM JAKE FISH (JANNY) INTMWS During your visit today, we recorded the following informati on about you: Pulse Respiration Blood pressure Weight 100/minute 16/minute 126/56 51.7 kg Jake Fish APRN.FINANCIAL AID MANAGER 04/14/2020 10:03 AM Signed SUBJECTIVE: Sonny Dennis is a 79 year old female. ADVANCE DIRECTIVE DISCUSSION due on 11/05/2013 URINE ALBUMIN:CREATININE RATIO due on 08/19/2018 DIABETIC FOOT EXAM due on 12/13/2019 HPI Chronic low back pain continues to be ma naged with gabapentin and [place]. Notes she has reduced frequency of [place] with relief at the lowe r dose. Notes she has also reduced her dose of gabapentin. Without report of adverse effects, no reported OIC or sedation. No red flag complaints. Separately requests that she see stitcher utility and have echoc ardiogram in [place] rather than traveling to [place]. Has aortic st enosis, no chest pain, [...] b y mouth daily with breakfast. ID# [id number] levothyroxine (SYNTHROID) 50 mcg tablet Take 1 tablet by m outh daily before breakfast. ID# [id number] docusate sodium (COLACE) 100 mg capsule Take 1 capsule by mouth twice daily as needed for Constipation. While taking hydrocodone ([place]) buPROPion XL (WELLBUTRIN XL) 150 mg 24 hr tablet Take 1 tablet by mouth once daily. ID# [id number] gabapentin (NEURONTIN) 300 mg capsule Take 2 capsules in the morning, 3 capsules at bedtime famotidine (PEPCID) 20 mg tablet Take 1 tablet b y mouth twice daily. take for one month while taking celocoxib metFORMIN (GLUCOPHAGE) 850 mg tablet Take 1 tablet by mouth twice daily with meals. ID# [id number] cyanocobalamin 1,000 mcg/mL 1 mL IM every 3 weeks furosemide (LASIX) 20 mg tablet Take 1 tablet by mouth once daily. as needed for leg swelling. lisinopril (ZESTRIL, PRINIVIL) 10 mg tab let Take 1 tablet by mouth once daily. As directed ID# [id number] nystatin (MYCOSTATIN) 100,000 unit/mL suspension One t easpoon swish in mouth for several minutes then swallow (or expectorate ) four times daily. Use until gone. cyclobenzaprine (FLEXERIL) 10 mg tablet Take 1 tablet by angela th daily at bedtime. ID# [id number] atorvastatin (LIPITOR) 20 mg tablet Take 1 tablet by mouth o nce daily. mirtazapine (REMERON) 15 mg tablet Take 1 tablet by mouth daily at bedtime. ID# [id number] PARoxetine (PAXIL) 10 mg tab let Take 1 tablet by mouth once daily. ID# [id number] calcium carbonate (CALCIUM 600 ORAL) Take by [...] DM - Controlled E11.9 Insulin: No PNV Cmb#81-Asmh-Fehid Acid ( COM PLETE) 14 mg iron- [...] by mouth twice daily with meals. ID# [id number] perflutren lipid microspheres (DEFINITY) 1.1 mg/mL inj [...] if able. Would like to see a stitcher utility and have echocardiogr am in [place], consult placed Continue Q2 mo follow up Jake Fish APRN.FINANCIAL AID MANAGER Referring Provider: SELF [200] Allergies As of [...] tablet by mouth daily at bedtime. ID# [id number]: 90 tabletRfl: 3 PARoxetine (PAXIL) 10 mg tabletTake 1 tablet by mouth once d aily. ID# [id number]: 90 tabletRfl: 3 furosemide (LASIX) 20 mg tabletTake 1 tablet by mouth once d aily. as needed for leg swelling.Disp: 30 tabletRfl: 0 ALBUMIN/CREAT RATIO RND UR [SQUACR] Order #: [id number] gabapentin (NEURONTIN) 300 mg capsuleTake 2 capsules in the morning, 2 capsules at bedtimeDisp: 450 capsuleRfl: 3 CONSULT TO CARDIOLOGY [9004] Order #: [id number]: 1 FUTUR E [START ON 05/01/2020] HYDROcodone-acetaminophen [...] 03/20/2010 Cervicalgia [M54.2] 05/22/2010 Other physical therapy [[id number]] 06/21/2010 01/06/2016 Other specified disorder of bladder [...] tablet by mouth daily at bedtime. ID# [id number] PAROXETINE 10 MG TABLET 90 t* 3 04/14/2020 Route: ORAL Sig: Take 1 tablet by mouth once daily. ID# [id number] FUROSEMIDE 20 MG TABLET 30 t* 0 [...] 1 tablet by mouth once daily. ID# [id number] - cyclobenzaprine (FLEXERIL) 10 mg tablet (Discontinued) Take 1 tablet by mouth daily at bedtime. ID# [id number] - furosemide (LASIX) 20 mg tablet (Discontinued) [...] on 2020-03 OBSOLETE Refill (INTMWS) Normal 04-01-2020 [facility] SONNY DENNIS ([id number]) 1940 [facility] Date Time Provider Department (54934) 04/01/20 MATI MONTENEGRO INTAguedaWS During your visit [...] 03/20/2010 Cervicalgia [M54.2] 05/22/2010 Other physical therapy [[id number]] 06/21/2010 01/06/2016 Other specified disorder of bladder [...] on 2020-03 OBSOLETE Refill (INTMWS) Normal 03-31-2020 [facility] SONNY DENNIS ([id number]) 1940 [facility] Time Provider Department (85238) 03/31/20 MATI MONTENEGRO INTMWS During your visit [...] (AMARYL) 1 mg tabletTake 1 tablet by [facility] daily with breakfast. ID# [id number]: 90 tabletRfl: 3 Prescriptions as of 03/31/2020 [...] 03/20/2010 Cervicalgia [M54.2] 05/22/2010 Other physical therapy [[id number]] 06/21/2010 01/06/2016 Other specified disorder of bladder [...] tablet by mouth daily with breakfast. ID# [id number] Encounter Status:Closed by JAKE BLACKMON on 03/31/20 obsolete on 2020-03 OBSOLETE Refill (INTMWS) Normal 03-15-2020 [facility] SONNY DENNIS ([id number]) 1940 [facility] Date Time Provider Department (17673) 03/15/20 MATI MONTENEGRO INTMWS During your visit [...] tablet by mouth daily before breakfast. ID# [id number]: 30 tabletRfl: 5 Prescriptions as of 03/15/2020 [...] 03/20/2010 Cervicalgia [M54.2] 05/22/2010 Other physical therapy [[id number]] 06/21/2010 01/06/2016 Other specified disorder of bladder [...] tablet by mouth daily before breakfast. ID# [id number] Encounter Status:Closed by MATI MONTENEGRO MD on 03/15/20 cnpn [facility]02[facility]) Normal 02-24-2020 [place] SONNY DENNIS ([id number]) 1940 [facility] Date Time Provider Department ([id number]) 02/24/20 MATI MONTENEGRO INTMWS During your visit today, we recorded the following informati on about you: Arley Glover RN 02/24/2020 10:18 AM Signed Pt called, verified by name and birthdate. Pt states s he had surgery and was given Oxycontin but did not use them. Pt states she took her [place] instead. Pt is now out of [place] and wants to know if PCP will write No rco to last until 03-04-2020. Pt states her surgeon will begin writing rhina cotics for her at that time. Please advise Arley Roaching Pss 02/25/2020 10:09 AM Signed Patient is calling to check on the status; she is requesting a phone call today, please. Jake Fish APRN.FINANCIAL AID MANAGER 02/25/2020 3:19 PM Signed She has an [...] Fully Assessed Reason for Visit: Medication Question [9708] Visit Diagnoses:Chronic bilateral low back pain with [...] 03/20/2010 Cervicalgia [M54.2] 05/22/2010 Other physical therapy [[id number]] 06/21/2010 01/06/2016 Other specified disorder of bladder [...] hmspatientid on 2020-02-18 OOP 02-18-2020 - 02-18-2020 [facility] - [facility] [place] ([id number]) progress on 2020-01 PROGRESS HNO ID: [id number] Normal 02-05-2020 [facility] Author: Jake ([facility]) [facility] ([id number]) Service: ? Author Type: Nurse Specialist Type: Progress Notes Filed: 02/05/2020 9:25 AM Note Text: SUBJECTIVE: Sonny Dennis is a 79 year old female. ADVANCE DIRECTIVE DISCUSSION due on 11/05/2013 URINE ALBUMIN:CREATININE RATIO due on 08/19/2018 DIABETIC FOOT EXAM due on 12/13/2019 HPI Presents today for preoperative visit in internal medicine.. Exploration possible removal fusion L2-L3 under general anesthesia at [facility] with Dr. Armin Ibrahim 02/08/2020. She was seen by her stitcher utility Dr.Gregory Iraheta who advise d an echocardiogram [...] reported. Preoperative EKG and labs completed at [facility]. EKG c ompleted January 29, 2020 showed [...] 100 mg capsule Take 1 capsule by [facility] twice daily as needed for Constipation. While taking hydrocodone ( [place]) [START ON 02/06/2020] HYDROcodone-acetaminophen (NORCO) 5-325 mg [...] tabl et by mouth once daily. ID# [id number] gabapentin (NEURONTIN) 300 mg capsule Take 2 capsules in the morning, 3 capsules at bedtime famotidine (PEPCID) 20 mg tablet Take 1 tablet by mouth twic e daily. take for one month while taking celocoxib levothyroxine (SYNTHROID) 50 mcg tablet Take 1 tablet by angela th daily before breakfast. ID# [id number] metFORMIN (GLUCOPHAGE) 850 mg tablet Take 1 tablet by mouth twice daily with meals. ID# GOCIUM2V metFORMIN (GLUCOPHAGE) 850 mg tablet Take 1 tablet by mouth twice daily with meals. ID# PUCPYO6N cyanocobalamin 1,000 mcg/mL 1 mL IM every 3 weeks furosemide (LASIX) 20 mg tablet Take 1 tablet by mouth once daily. as needed for leg swelling. lisinopril (ZESTRIL, PRINIVIL) 10 mg tablet Take 1 tablet by mouth once daily. As directed ID# NYNETD9S nystatin (MYCOSTATIN) 100,000 unit/mL suspension One teaspoo n swish in mouth for several minutes then swallow (or expectorate) four times daily. Use until gone. cyclobenzaprine (FLEXERIL) 10 mg tablet Take 1 tablet by angela th daily at bedtime. ID# [id number] atorvastatin (LIPITOR) 20 mg tablet Take 1 tablet by mouth o nce daily. mirtazapine (REMERON) 15 mg tablet Take 1 tablet by mouth da eb at bedtime. ID# [id number] PARoxetine (PAXIL) 10 mg tablet Take 1 tablet by mouth once daily. ID# [id number] perflutren lipid microspheres (DEFINITY) 1.1 mg/mL injection [...] by mouth miriam y with breakfast. ID# [id number] PNV Cmb#29-Hhoe-Nkhdd Acid ( COMPLETE) 14 mg iron- 4 [...] for cold sores Lancets (ACCU-CHEK MULTICLIX LANCET) [facility] lancets Use as ins tructed PAST MEDICAL [...] diagnosis) She has been seen by her stitcher utility Dr. Iraheta, echocardiog laura to be completed [...] 2020-02-05 CNOV Office Visit (INTMWS) Normal 02-05-20 [facility] SONNY DENNIS ([id number]) 1940 [facility] Date Time Provider Department ([id number]) 02/05/20 8:00 AM JAKE FISH ([facility]) INTMWS During your visit today, we recorded the following informati on about you: Pulse Respiration Blood pressure Weight 88/minute 14/minute 108/50 52.6 kg Jake Fish APRN.FINANCIAL AID MANAGER 02/05/2020 9:25 AM Signed SUBJECTIVE: Sonny M Sonny is a 79 year old female. ADVANCE DIRECTIVE DISCUSSION due on 11/05/2013 URINE ALBUMIN:CREATININE RATIO due on 08/19/2018 DIABETIC FOOT EXAM due on 12/13/2019 HPI Presents today for preoperative visit in internal medicine.. Exploration possible removal fusion L2-L [address] [facility] with Dr. Armin Ibrahim 02/08/2020. She was [...] reported. Preoperative EKG and labs completed at [facility]. EKG completed January 29, 2020 showed sinus [...] as needed for Constipation. While taking hydrocodone ([place]) [START ON 02/06/2020] HYDROcodone-acetamin ophen (NORCO) 5-325 [...] 1 tablet by mouth once daily. ID# [id number] gabapentin (NEURONTIN) 300 mg capsule Take 2 capsules in the morning, 3 capsules at bedtime famotidine (PEPCID) 20 mg tablet Take 1 tablet b y mouth twice daily. take for one month while taking celocoxib levothyroxine (SYNTHROID) 50 mcg tablet Take 1 tablet by m outh daily before breakfast. ID# [id number] metFORMIN (GLUCOPHAGE) 850 mg tablet Take 1 tablet by mouth twice daily with meals. ID# [id number] metFORMIN (GLUCOPHAGE) 850 mg tablet Take 1 tablet by mouth twice daily with meals. ID# ANLUBE8O cyanocobalamin 1,000 mcg/mL 1 mL IM every 3 weeks furosemide (LASIX) 20 mg tablet Take 1 tablet by mouth once daily. as needed for leg swelling. lisinopril (ZESTRIL, PRINIVIL) 10 mg tab let Take 1 tablet by mouth once daily. As directed ID# [id number] nystatin (MYCOSTATIN) 100,000 unit/mL suspension One t easpoon swish in mouth for several minutes then swallow (or expectorate ) four times daily. Use until gone. cyclobenzaprine (FLEXERIL) 10 mg tablet Take 1 tablet by angela th daily at bedtime. ID# MAOKXA2L atorvastatin (LIPITOR) 20 mg tablet Take 1 tablet by mouth o nce daily. mirtazapine (REMERON) 15 mg tablet Take 1 tablet by mouth daily at bedtime. ID# [id number] PARoxetine (PAXIL) 10 mg tab let Take 1 tablet by mouth once daily. ID# AOPPMO8V perflutren lipid microspheres (DEFINITY) 1.1 mg/mL inj [...] b y mouth daily with breakfast. ID# [id number] PNV Cmb#42-Bogq-Yymuv Acid ( COM PLETE) 14 mg iron- [...] - ICD9: 281.0, ICD10: D51.0 Jake Fish APRN.FINANCIAL AID MANAGER Referring Provider: SELF [200] Allergies As of [...] 03/20/2010 Cervicalgia [M54.2] 05/22/2010 Other physical therapy [[id number]] 06/21/2010 01/06/2016 Other specified disorder of bladder [...] 02/05/20 progress on 2020-01 PROGRESS HNO ID: [id number] Normal 02-04-2020 [facility] Author: Clara Iraheta, DO [place] ([id number]) Service: ? Author Type: Physician Type: Progress Notes Filed: 02/04/2020 2:52 PM Note Text: [facility] SECTION OF REGIONAL CARDIOLOGY [facility] OUTPATIENT VISIT DATE February 04, 2020 PRIMARY CARE PHYSICIAN: Mati Montenegro MD [address] [place] [address] HISTORY OF PRESENT ILLNESS: Ms. Dennis is [...] SURGICAL HISTORY OF 1997 Right elbow - [facility] - PAST SURGICAL HISTORY OF Left 01-27-16 [...] needed for Constipation. While taking hydrocodone ( [place]) [START ON 02/06/2020] HYDROcodone-acetaminophen (NORCO) 5-325 mg [...] tabl et by mouth once daily. ID# [id number] gabapentin (NEURONTIN) 300 mg capsule Take 2 capsules in the morning, 3 capsules at bedtime famotidine (PEPCID) 20 mg tablet Take 1 tablet by mouth twic e daily. take for one month while taking celocoxib levothyroxine (SYNTHROID) 50 mcg tablet Take 1 tablet by angela th daily before breakfast. ID# [id number] metFORMIN (GLUCOPHAGE) 850 mg tablet Take 1 tablet by mouth twice daily with meals. ID# [id number] metFORMIN (GLUCOPHAGE) 850 mg tablet Take 1 tablet by mouth twice daily with meals. ID# QRITNY6P cyanocobalamin 1,000 mcg/mL 1 mL IM every 3 weeks furosemide (LASIX) 20 mg tablet Take 1 tablet by mouth once daily. as needed for leg swelling. lisinopril (ZESTRIL, PRINIVIL) 10 mg tablet Take 1 tablet by mouth once daily. As directed ID# HBRKOT1P nystatin (MYCOSTATIN) 100,000 unit/mL suspension One teaspoo n swish in mouth for several minutes then swallow (or expectorate) four times daily. Use until gone. cyclobenzaprine (FLEXERIL) 10 mg tablet Take 1 tablet by angela th daily at bedtime. ID# [id number] atorvastatin (LIPITOR) 20 mg tablet Take 1 tablet by mouth o nce daily. mirtazapine (REMERON) 15 mg tablet Take 1 tablet by mouth da eb at bedtime. ID# [id number] PARoxetine (PAXIL) 10 mg tablet Take 1 tablet by mouth once daily. ID# [id number] perflutren lipid microspheres (DEFINITY) 1.1 mg/mL injection [...] by mouth miriam y with breakfast. ID# [id number] PNV Cmb#49-Dmvp-Osrcy Acid ( COMPLETE) 14 mg iron- 4 [...] Department of Medicine and Division of Cardiology, [facility] Staff Supervisor Steno Pool, Kavita Sutton Department o f Cardiovascular Medicine/Heart and Vascular [place], [facility] Clinical assistant signal maintainer Profressor of Medicine, [facility] ? [facility] Please note: This note has been produced using Coeurative software and may contain errors related to that system including gram angelica, punctuation, spelling, words, gender and phrases that may be inappropriate. ecg complete on ECG COMPLETE NAME : SONNY DENNIS Normal 0 02-04-2020 [facility] PID : [id number] Alejandro quintana ([id number]) : 1940 Gender : Female Race : ORD : [id number] Procedure Date : Feb 04 2020 14:03:41 [...] ms QTC Calculation(Bazett) : 427 ms P [place] : 73 degrees R [place] : 16 degrees T [place] : 47 degrees Test Reason : Location : 158 : [facility] Overread By : MD IRAHETA GREGORY Edited By : MD IRAHETA GREGORY Referred By : CLARA IRAHETA Acquired by : madi WATERS on 2020-02-04 CNPN Telephone (FAMPWS) Normal 02-04-2020 [place] SONNY DENNIS ([id number]) 1940 [facility] Date Time Provider Department ([id number]) 02/04/20 MATI MONTENEGRO During your visit today, [...] faxed to Dr Wanda eaton. Call Efraín [phone] ext [phone] ok to ms. Enrrique Polo PN Jake Fish, NBA.FINANCIAL AID MANAGER 02/04/2020 5:[address] Iraheta office? [...] 03/20/2010 Cervicalgia [M54.2] 05/22/2010 Other physical therapy [[id number]] 06/21/2010 01/06/2016 Other specified disorder of bladder [...] 2020-02-04 CNOV Office Visit (GAETANO) Normal 02-04-20 [place] SONNY DENNIS ([id number]) 1940 [facility] Time Provider Department (03757) 02/04/20 2:00 PM CLARA IRAHETA During your visit today, we recorded the following informati on about you: Pulse Blood pressure Weight Height 95/minute 110/62 53.1 kg 1.549 m Clara Iraheta DO, 02/04/2020 2:52 PM [facility] SECTION OF REGIONAL CARDIOLOGY [facility] OUTPATIENT VISIT DATE February 04, 2020 PRIMARY CARE PHYSICIAN: Mati Montenegro MD [address] [place] [address] HISTORY OF PRESENT ILLNESS: Ms. Dennis is [...] Laterality Date - COLONOSCOP W/ OR W/O [facility] SPEC 01/29 Colonoscopy - COLONOSCOP W/ OR W/O [facility] SPEC 01/29, 04/05/06 - COLONOSCOPY W/BX 10/29/08 Diverticulosis - COLONOSCOPY W/BX 07/18/11 Repeat in - EGD W/O [facility] SPECIMEN W/BX 10/02, 04/05/06 - EGD W/O [facility] SPECIMEN W/BX 10/29/08 Patent gastrojejunostomy - EGD [...] SURGICAL HISTORY OF 1997 Right elbow - [facility] - PAST SURGICAL HISTORY OF Left 29-16 [...] as needed for Constipation. While taking hydrocodone ([place]) [START ON 02/06/2020] HYDROcodone-acetamin ophen (NORCO) 5-325 [...] 1 tablet by mouth once daily. ID# [id number] gabapentin (NEURONTIN) 300 mg capsule Take 2 capsules in the morning, 3 capsules at bedtime famotidine (PEPCID) 20 mg tablet Take 1 tablet b y mouth twice daily. take for one month while taking celocoxib levothyroxine (SYNTHROID) 50 mcg tablet Take 1 tablet by m outh daily before breakfast. ID# [id number] metFORMIN (GLUCOPHAGE) 850 mg tablet Take 1 tablet by mouth twice daily with meals. ID# [id number] metFORMIN (GLUCOPHAGE) 850 mg tablet Take 1 tablet by mouth twice daily with meals. ID# [id number] cyanocobalamin 1,000 mcg/mL 1 mL IM every 3 weeks furosemide (LASIX) 20 mg tablet Take 1 tablet by mouth once daily. as needed for leg swelling. lisinopril (ZESTRIL, PRINIVIL) 10 mg tab let Take 1 tablet by mouth once daily. As directed ID# [id number] nystatin (MYCOSTATIN) 100,000 unit/mL suspension One t easpoon swish in mouth for several minutes then swallow (or expectorate ) four times daily. Use until gone. cyclobenzaprine (FLEXERIL) 10 mg tablet Take 1 tablet by angela th daily at bedtime. ID# [id number] atorvastatin (LIPITOR) 20 mg tablet Take 1 tablet by mouth o nce daily. mirtazapine (REMERON) 15 mg tablet Take 1 tablet by mouth daily at bedtime. ID# [id number] PARoxetine (PAXIL) 10 mg tab let Take 1 tablet by mouth once daily. ID# [id number] perflutren lipid microspheres (DEFINITY) 1.1 mg/mL inj [...] b y mouth daily with breakfast. ID# [id number] PNV Cmb#21-Kmrm-Sdzdd Acid ( COM PLETE) 14 mg iron- [...] Department of Medicine and Division of Cardiology, [facility] Staff Supervisor Steno Pool, George and Katelin Sutton Depart ment of Cardiovascular Medicine/Heart and Vascular [place], [facility] Clinical assistant signal maintainer Profressor of Medicine, [facility] Please note: This note has been produced using speech recognition software and may contain errors related to that system including varinder, punctuation, spelling, words, gender and phrases that may be inappropriat e. Referring Provider: CLARA IRAHETA [[id number]] Allergies As of Date: 02/04/2020 Noted Allergy [...] exam [Z01.810] Order(s):ECG COMPLETE [ECG01] Order #: [id number] FUTURE ECHO [146193] Order #: [id number]: 1 FUTURE perflutren lipid microspheres (DEFINITY) 1.1 [...] 03/20/2010 Cervicalgia [M54.2] 05/22/2010 Other physical therapy [[id number]] 06/21/2010 01/06/2016 Other specified disorder of bladder [...] on 2020-01-29 MADI Telephone (GAETANO) Normal 01-29-2020 [facility] SONNY DENNIS ([id number]) 1940 [facility] Date Time Provider Department ([id number]) 01/29/20 CLARA IRAHETA During your visit today, [...] written on it after. Fax number is [phone] Phone number [phone] Magdalena Ellison, RN, RN 02/05/2020 4:09 PM [...] darvon Date Reviewed: 01/07/2020 Reviewed by: Jake (Tablet Technician) Abe - Fully Assessed Reason for Visit: cardiac risk assessment [Other] Cmt: [facility] Prescriptions as of 01/29/2020 Sig: DOCUSATE [...] 03/20/2010 Cervicalgia [M54.2] 05/22/2010 Other physical therapy [[id number]] 06/21/2010 01/06/2016 Other specified disorder of bladder [...] MARIANO ELIZABETH on 01/29/20 [facility]) [facility] 01-12-2020 [facility] SONNY DENNIS ([id number]) 1940 [facility] Date Time Provider Department ([id number]) 01/12/20 JAKE FISH ([facility]) FAMPWS During your visit today, we recorded the following informati on about you: Radha Owens LPN 01/12/2020 4:21 PM Signed Patient calling for the results of last lab work. Alphonso montiel advise. Radha Fish APRN.JANNY 01/12/2020 4:33 PM Signed Tox [...] Comments: monaevon Date Reviewed: 01/07/2020 Reviewed by: Jake (Tablet Technician) Abe - Fully Assessed Reason for Visit: [...] 03/20/2010 Cervicalgia [M54.2] 05/22/2010 Other physical therapy [[id number]] 06/21/2010 01/06/2016 Other specified disorder of bladder [...] 01/21/20 progress on 2019-12 PROGRESS HNO ID: [id number] Normal 01-07-2020 [facility] Author: Jake (Tablet Technician) Abe Santiago ([id number]) Service: ? Author Type: Nurse Specialist Type: Progress Notes Filed: 01/07/2020 12:22 PM Note Text: DISTANCE HEALTH VISIT This Team Access Model visit is a phone encounter. It requir ed patient-provider interaction for the medical decision making as documented below. Sonny Dennis is a 79 year old female seen for [facility] follow up. Subjective HPI excerpted from last visit: She is s/p lumbar fusion 01/05/[address] Florencio I[facility], intially felt she was doing better following surgery, but carreno s had trouble with left sided low back pain radiation down left leg recent ly. She was seen at [facility] emergency departm ent yesterday for back [...] hip and left knee. She reported trying [place] at [facility] but was having severe pain. No bowel [...] with pain medication, advise d to resume [place] at home to follow-up in outpatient setting. Today she notes she is not sure if gabapentin is helping prisca y much. She reports not sedated with current dosing. Reports [place] does help. She reports receiving morphine in the ER yesterday and this did help but caused her to sleep in this morning. She still takes Tylenol for back pain, has not noticed much difference with this. She did see pain management previously in [place] but did not find relief wit h [...] she is getting relief of pain with [place]. No repor rod adverse effects. PDMP website checked and validated. All prescriptions have b een APPROPRIATELY filled. No suspicious activity was identified. 01/07/2020 by Jake Fish APRN.FINANCIAL AID MANAGER Since last year she has been seen by her surgeon Dr. Ibrahim, Xrays completed, MRI scheduled at [facility]. To be seen in [facility] up 01/17. She notes that he thought [...] needed for Constipation. While taking hydrocodone ( [place]) - [START ON 02/06/2020] HYDROcodone-acetaminophen (NORCO) 5-32 [...] ta blet by mouth once daily. ID# [id number] - gabapentin (NEURONTIN) 300 mg capsule Take 2 capsules in t he morning, 3 capsules at bedtime - famotidine (PEPCID) 20 mg tablet Take 1 tablet by mouth tw ice daily. take for one month while taking celocoxib - levothyroxine (SYNTHROID) 50 mcg tablet Take 1 tablet by m outh daily before breakfast. ID# [id number] - metFORMIN (GLUCOPHAGE) 850 mg tablet Take 1 tablet by mout h twice daily with meals. ID# [id number] - metFORMIN (GLUCOPHAGE) 850 mg tablet Take 1 tablet by mout h twice daily with meals. ID# [id number] - cyanocobalamin 1,000 mcg/mL 1 mL IM every 3 weeks - furosemide (LASIX) 20 mg tablet Take 1 tablet by mouth onc e daily. as needed for leg swelling. - lisinopril (ZESTRIL, PRINIVIL) 10 mg tablet Take 1 tablet by mouth once daily. As directed ID# [id number] - nystatin (MYCOSTATIN) 100,000 unit/mL suspension One teasp oon swish in mouth for several minutes then swallow (or expectorate) four times daily. Use until gone. - cyclobenzaprine (FLEXERIL) 10 mg tablet Take 1 tablet by m outh daily at bedtime. ID# XZVGFI1D - atorvastatin (LIPITOR) 20 mg tablet Take 1 tablet by mouth once daily. - mirtazapine (REMERON) 15 mg tablet Take 1 tablet by mouth daily at bedtime. ID# [id number] - PARoxetine (PAXIL) 10 mg tablet Take 1 tablet by mouth onc e daily. ID# TWPVYK9M - perflutren lipid microspheres (DEFINITY) 1.1 mg/mL [...] by mouth da eb with breakfast. ID# TVROHS5P - PNV Cmb#80-Eojb-Zgyxe Acid ( COMPLETE) 14 mg iron- 400 [...] her spine surgeon Dr. Agueda johansen at [facility]. An x-ray was completed. MRI is scheduled. [...] for now. She is getting relief from [place] for her pain so we will inc [...] 30 min spent in visit Jake Fish APRN.FINANCIAL AID MANAGER clinical summary: hmspatientid on 2019-12-31 OOP 12-31-2019 - 12-31-2019 [facility] [place] ([id number]) progress on 2019-11 PROGRESS HNO ID: [id number] Normal 12-22-2019 [facility] Author: Juany (Rac) Jessica [facility] ([id number]) Service: ? Author Type: Diplomat of Acupuncture [...] - 25% in 6 weeks Improve ADLs FDC GOALS: Reduce pain by 50% - 55% [...] the procedure well. TCM topicals used: none [place] Protocol Safety Checklist Worksheet Complete? : Ye s Home-Going Instructions: Avoid anything cold (food/drinks) at this time. If applying heat/cold packs, should try to alternate between the two (10 minutes w arm and 5 minutes cold). Provider Name: Ayaz Arzate 30 Total minutes face to face time spent with patient Acupuncture and Emirati herbal therapy is not a substitute f [...] for which patient is seeking treatment, the Jaw Skinner, per [place] Law, recommends that this diagnostic exam be performed. cnov on 2019-12-22 CNOV Office Visit (WELCIM) Normal 12-22-19 [facility] SONNY DENNIS ([id number]) 1940 [facility] Date Time Provider Department ([id number]) 12/22/19 8:00 AM [facility] AMBER During your visit today, we recorded [...] No Treatment schedule: Acupuncture once a w [place]. Then re-evaluated for therapeutic effect. Prognosis: Fair SHORT TERM GOALS: Reduce pain by 20% - 25% in 6 weeks. Improve ROM by 20% - 25% in 6 weeks Improve ADLs FDC GOALS: Reduce pain by 50% - 55% [...] the procedure well. TCM topicals used: none [place] Protocol Safety Checklist Worksheet Complete? : Ye s Home-Going Instructions: Avoid anything cold (food/drinks) at this time. If bari lying heat/cold packs, should try to alternate between the two (10 virginie willie warm and 5 minutes cold). Provider Name: Juany Young, R Ac 30 Total minutes face to face time spent with patient Acupuncture and Emir[place] herbal therapy is not a substitute for [...] which patien t is seeking treatment, the Jaw Skinner, per [place] Law, recomme nds that this diagnostic exam [...] matti Date Reviewed: 12/22/2019 Reviewed by: [facility] Center[facility] Young - Fully Assessed Reason for Visit: [...] 03/20/2010 Cervicalgia [M54.2] 05/22/2010 Other physical therapy [[id number]] 06/21/2010 01/06/2016 Other specified disorder of bladder [...] radiculopathy affecting l*10/13/2019 Encounter Status:Closed by JUANY OYUNG on 12/22/19 progress on 2019-11 PROGRESS HNO ID: [id number] Normal 12-10-2019 [facility] Author: Jake (Janny) Abe Santiago ([id number]) Service: ? Author Type: Nurse Specialist Type: Progress Notes Filed: 12/10/2019 8:46 AM Note Text: She was seen at [facility] emergency departm ent yesterday for back [...] hip and left knee. She reported trying [place] at [facility] but was having severe [...] with pain medication, advise d to resume [place] at home to follow-up in outpatient setting. PROGRESS HNO ID: [id number] Normal 12-10-2019 [facility] Author: Jake (Tablet Technician) Abe [facility] ([id number]) Service: ? Author Type: Nurse Specialist Type: Progress Notes Filed: 12/10/2019 9:40 AM Note Text: DISTANCE HEALTH VISIT This Team Access Model visit is a phone encounter. It requir ed patient-provider interaction for the medical decision making as documented below. Sonny Dennis is a 79 year old female seen for [facility] follow up. Subjective She is s/p lumbar fusion 01/05/[address] Florencio Ibrahim [facility], intially felt she was doing better following surgery, but carreno s had trouble with left sided low back pain radiation down left leg recent ly. She was seen at [facility] emergency departm ent yesterday for back [...] hip and left knee. She reported trying [place] at [facility] e but was having severe [...] with pain medication, advise d to resume [place] at home to follow-up in outpatient setting. Today she notes she is not sure if gabapentin is helping prisca y much. She reports not sedated with current dosing. Reports [place] does help. She reports receiving morphine in the ER yesterday and this did help but caused her to sleep in this morning. She still takes Tylenol for back pain, has not noticed much difference with this. She did see pain management previously in [place] but did not find relief wit h [...] by m outh daily before breakfast. ID# [id number] - HYDROcodone-acetaminophen (NORCO) 5-325 mg per tablet Take 1 tablet by mouth every 6 hours as needed for Pain for up to 14 days. - metFORMIN (GLUCOPHAGE) 850 mg tablet Take 1 tablet by mout h twice daily with meals. ID# [id number] - metFORMIN (GLUCOPHAGE) 850 mg tablet Take 1 tablet by mout h twice daily with meals. ID# GEVLSG3M - cyanocobalamin 1,000 mcg/mL 1 mL IM every 3 weeks - gabapentin (NEURONTIN) 300 mg capsule Take 2 capsules by m outh twice daily for 180 days. ID# FPTETV4Q - furosemide (LASIX) 20 mg tablet Take 1 tablet by mouth onc e daily. as needed for leg swelling. (Patient not taking: Reported on ) - lisinopril (ZESTRIL, PRINIVIL) 10 mg tablet Take 1 tablet by mouth once daily. As directed ID# DZYHLU0N - nystatin (MYCOSTATIN) 100,000 unit/mL suspension One [...] by m outh daily at bedtime. ID# [id number] - atorvastatin (LIPITOR) 20 mg tablet Take 1 tablet by mouth once daily. - mirtazapine (REMERON) 15 mg tablet Take 1 tablet by mouth daily at bedtime. ID# [id number] - PARoxetine (PAXIL) 10 mg tablet Take 1 tablet by mouth onc e daily. ID# [id number] - perflutren lipid microspheres (DEFINITY) 1.1 mg/mL [...] by mouth da eb with breakfast. ID# [id number] - PNV Cmb#33-Ncom-Ffwgt Acid ( COMPLETE) 14 mg iron- 400 mcg tab Take by mouth. Pt is taking 2 tablets daily - buPROPion XL (WELLBUTRIN XL) 150 mg 24 hr tablet Take 1 ta blet by mouth once daily. ID# PQSDFB5G - potassium chloride SR (MICRO-K) 10 mEq [...] 30 min spent in visit Jake Fish APRN.FINANCIAL AID MANAGER tsh on 2019-12-08 TSH Qn 2.880 0.270-4.200 uU/mL Normal 12-08-2019 [facility] ([id number]) Comment: Performed By: #### LIPB, TSH , HBA1C, CMP, CBC, FT4 ####[facility] [address] [place], [place] [phone] lipid panel, basic on 2019-12-08 Cholesterol [Mass/Vol] 132 <200 mg/dL Normal 12-07- 020 [facility] (67029) Comment: Result Comment: <200 mg/dL, Desirable 200-239 mg/dL, Borderline hi gh >239 mg/dL, High Performed By: #### LIPB, TSH , HBA1C, CMP, CBC, FT4 ####[facility] [place], [place] [phone] Cholesterol in HDL 64 >39 mg/dL Normal 12-08-2019 [facility] [Mass/Vol] (38237) Comment: Result Comment: 40-59 mg/dL, Acceptable >59 mg/dL, High: Negative ri sk factor for coronary heart disease <40 mg/dL, Low: Positive ris k factor for coronary heart disease Performed By: #### LIPB, TSH , HBA1C, CMP, CBC, FT4 ####[place] [address] [place], [place] [phone] Cholesterol in LDL 48 <100 mg/dL Normal 12-08-2019 [facility] [Mass/Vol] [facility] ([id number]) Comment: Result Comment: <100 mg/dL, Optimal 100-129 mg/dL, Near optimal/ above optimal 130-159 mg/dL, Borderline hi gh 160-189 mg/dL, High >189 mg/dL, Very high Secondary prevention optimal LDL Cholesterol levels are recommended to be < 70 mg/dL Performed By: #### LIPB, TSH , HBA1C, CMP, CBC, FT4 ####[facility] [place], [place] [phone] Fasting Time 12 hrs Normal 12-08-2019 [facility] (00543) Comment: Performed By: #### LIPB, TSH , HBA1C, CMP, CBC, FT4 ####[place] [address] [place], [place] [phone] LDL:HDL Ratio 0.75 <2.54 Normal 12-08-2019 [facility] ([id number]) Comment: Result Comment: Reference: 1. National Cholesterol Educ ation Program ATP III Guideline At-A-Glance Quick Desk Reference: National Heart, Lung, and Blood [place]. National Institutes of Health. 2001: NIH Publication No. 01-3305. 2. An International Atherosc lerosis Society position paper: global recommendations for the management of dyslipidemia: executive summary, Atherosclerosis. 2014: 232(2):410-413. Performed By: #### LIPB, TSH , HBA1C, CMP, CBC, FT4 ####[place] [address] [place], [place] [phone] Non HDL Cholesterol 68 <130 mg/dL Normal 12-08-2019 [facility] (34136) Comment: Result Comment: <130 mg/dL, Optimal 130-159 mg/dL, Near optimal/ above optimal 160-189 mg/dL, Borderline hi gh 190-219 mg/dL, High >219 mg/dL, Very high Secondary prevention optimal non HDL Cholesterol levels are recommended to be < 100 mg/dL Performed By: #### LIPB, TSH , HBA1C, CMP, CBC, FT4 ####[place] [address] [place], [place] [phone] TC:HDL Ratio 2.06 <5.10 Normal 12-08-2019 [facility] (93644) Comment: Performed By: #### LIPB, TSH , HBA1C, CMP, CBC, FT4 ####[place] [address] [place], [place] [phone] Triglyceride [Mass/Vol] 100 <150 mg/dL Normal 2019 [facility] (04406) Comment: Result Comment: <150 mg/dL, Normal 150-199 mg/dL, Borderline hi gh 200-499 mg/dL, High >499 mg/dL, Very high Performed By: #### LIPB, TSH , HBA1C, CMP, CBC, FT4 ####[place] [address] [place], [place] [phone] VLDL Cholesterol 20 <30 mg/dL Normal 12-08-2019 [facility] (24737) Comment: Performed By: #### LIPB, TSH , HBA1C, CMP, CBC, FT4 ####[place] [address] [place], [place] [phone] hemoglobin a1c on 2 HbA1c (Bld) [Mass fraction] 7.2 4.3-5.6 % High [facility] (15448) Comment: Result Comment: [place] Jessica betes Association guidelines indicate that patients with HgbA1c in the range 5.7-6.4% are at increased risk for development of diabetes, and intervention by lifestyle modification may be beneficial. HgbA1c greater o r equal to 6.5% is considered diagnostic of diabetes. Performed By: #### LIPB, TSH , HBA1C, CMP, CBC, FT4 ####[place] [address] [place], [place] [phone] HbA1c (Bld) [Mass fraction] 160 mg/dL Normal [facility] (80944) Comment: Result Comment: eAG: (Estima rod average glucose) is a calculated value from HgbA1c and is automotive leasing sales representative of the average blood glucose level in the last 2-3 month period. Performed By: #### LIPB, TSH , HBA1C, CMP, CBC, FT4 ####[place] [address] [place] [phone] free t4 on Free T4 [Mass/Vol] 1.3 0.9-1.7 ng/dL Normal 12-08-2019 [facility] (72740) Comment: Performed By: #### LIPB, TSH , HBA1C, CMP, CBC, FT4 ####[place] [address] [place], [place] [phone] comp metabolic panel on 2019-12-08 Albumin [Mass/Vol] 4.4 3.9-4.9 g/dL Normal 12-08-2019 [facility] (56739) Comment: Performed By: #### LIPB, TSH , HBA1C, CMP, CBC, FT4 ####[place] [address] [place], [place] [phone] ALP [Catalytic activity/Vol] 65 34-123 U/L Normal 0 12-08-2019 [facility] (61562) Comment: Performed By: #### LIPB, TSH , HBA1C, CMP, CBC, FT4 ####[place] [address] [place], [place] [phone] ALT [Catalytic activity/Vol] 13 7-38 U/L Normal 0 12-08-2019 [facility] (92217) Comment: Performed By: #### LIPB, TSH , HBA1C, CMP, CBC, FT4 ####[facility] [place], [place] [phone] Anion gap [Moles/Vol] 15 9-18 mmol/L Normal 12-08-19 20 [facility] (06437) Comment: Performed By: #### LIPB, TSH , HBA1C, CMP, CBC, FT4 ####[facility] [place], [place] [phone] AST [Catalytic activity/Vol] 24 13-35 U/L Normal 0 12-08-2019 [facility] (90421) Comment: Performed By: #### LIPB, TSH , HBA1C, CMP, CBC, FT4 ####[facility] [place], [place] [phone] Bilirubin [Mass/Vol] 0.2 0.2-1.3 mg/dL Normal 0 [facility] (49586) Comment: Performed By: #### LIPB, TSH , HBA1C, CMP, CBC, FT4 ####[facility] [place], [place] [phone] Calcium [Mass/Vol] 9.9 8.5-10.2 mg/dL Normal 12-08-2019 [facility] (36341) Comment: Performed By: #### LIPB, TSH , HBA1C, CMP, CBC, FT4 ####[facility] [address] [place], [place] [phone] Chloride [Moles/Vol] 98 97-105 mmol/L Normal 0 [facility] (18312) Comment: Performed By: #### LIPB, TSH , HBA1C, CMP, CBC, FT4 ####[facility] [place], [place] [phone] CO2 [Moles/Vol] 25 22-30 mmol/L Normal 12-08-2019 [facility] (74408) Comment: Performed By: #### LIPB, TSH , HBA1C, CMP, CBC, FT4 ####[facility] [address] [place], [place] [phone] Creatinine [Mass/Vol] 0.96 0.58-0.96 mg/dL Normal 12-08-19 20 [facility] (05444) Comment: Performed By: #### LIPB, TSH , HBA1C, CMP, CBC, FT4 ####[facility] [address] [place], [place] [phone] eGFR- Amer. >60 Normal 12-08-2019 [facility] (22189) Comment: Performed By: #### LIPB, TSH , HBA1C, CMP, CBC, FT4 ####[facility] [place], [place] [phone] GFR/1.73 sq M predicted among 56 . Normal 12-08-2019 [facility] non-blacks MDRD (S/P/Bld) [Vol (75381) rate/Area] Comment: Result Comment: eGFR (Estima rod [...] LIPB, TSH , HBA1C, CMP, CBC, FT4 ####[facility] [address] [place], [place] [phone] Glucose [Mass/Vol] 117 74-99 mg/dL High 12-08-2019 [facility] (01300) Comment: Result Comment: The [place] Diabetes Association (ADA) provides guidance for cutoff [...] for diagnosis of diabetes. Reference: Standards of [facility] Care in Diabetes 2016, [place] Diabetes Association. Diabetes Care. 2016.39(Suppl 1). Performed By: #### LIPB, TSH , HBA1C, CMP, CBC, FT4 ####[facility], [place] [phone] Potassium [Moles/Vol] 4.6 3.7-5.1 mmol/L Normal 12-08-19 [facility] (84322) Comment: Performed By: #### LIPB, TSH , HBA1C, CMP, CBC, FT4 ####[place] [address], [place] [phone] Protein [Mass/Vol] 7.1 6.3-8.0 g/dL Normal 12-08-2019 [facility] (66472) Comment: Performed By: #### LIPB, TSH , HBA1C, CMP, CBC, FT4 ####[place] [address] [place], [place] [phone] Sodium [Moles/Vol] 138 136-144 mmol/L Normal 12-08-2019 [facility] (74982) Comment: Performed By: #### LIPB, TSH , HBA1C, CMP, CBC, FT4 ####[facility] [place], [place] [phone] Urea nitrogen [Mass/Vol] 13 7-21 mg/dL Normal 12-07 [facility] (70796) Comment: Performed By: #### LIPB, TSH , HBA1C, CMP, CBC, FT4 ####[facility] [place], [place] [phone] cbc on 2019-12-08 Absolute nRBC <0.01 <0.01 Normal 12-08-2019 [facility] (71700) Comment: Performed By: #### LIPB, TSH , HBA1C, CMP, CBC, FT4 ####[facility] [place], [place] [phone] Erythrocyte distribution 13.1 11.5-15.0 % Normal 12-07 [facility] width (RBC) [Ratio] [facility] (23981) Comment: Performed By: #### LIPB, TSH , HBA1C, CMP, CBC, FT4 ####[place] [address] [place], [place] [phone] Hematocrit (Bld) [Volume 38.5 36.0-46.0 % Normal 12-07 [facility] fraction] [facility] (26290) Comment: Performed By: #### LIPB, TSH , HBA1C, CMP, CBC, FT4 ####[place] [address] [place], [place] [phone] Hemoglobin (Bld) 12.0 11.5-15.5 g/dL Normal 12-08-2019 [facility] [Mass/Vol] [facility] (34403) Comment: Performed By: #### LIPB, TSH , HBA1C, CMP, CBC, FT4 ####[place] [address] [place], [place] [phone] MCH (RBC) [Entitic mass] 30.6 26.0-34.0 pG Normal 12-07 [facility] (65971) Comment: Performed By: #### LIPB, TSH , HBA1C, CMP, CBC, FT4 ####[place] [address] [place], [place] [phone] MCHC (RBC) [Mass/Vol] 31.2 30.5-36.0 g/dL Normal 12-08-19 20 [facility] ([id number]) Comment: Performed By: #### LIPB, TSH , HBA1C, CMP, CBC, FT4 ####[facility] [address] [place], [place] [phone] MCV (RBC) [Entitic vol] 98.2 80.0-100.0 fL Normal 12-07 [facility] ([id number]) Comment: Performed By: #### LIPB, TSH , HBA1C, CMP, CBC, FT4 ####[place] [address] [place], [place] [phone] Platelet mean volume 10.0 9.0-12.7 fL Normal 0 [facility] (Bld) [Entitic vol] [place] ([id number]) Comment: Performed By: #### LIPB, TSH , HBA1C, CMP, CBC, FT4 ####[place] [address] [place], [place] [phone] Platelets (Bld) [#/Vol] 333 150-400 k/uL Normal 2019 [facility] ([id number]) Comment: Performed By: #### LIPB, TSH , HBA1C, CMP, CBC, FT4 ####[place] [address] [place], [place] [phone] RBC (Bld) [#/Vol] 3.92 3.90-5.20 m/uL Normal 12-08-2019 C [facility] ([id number]) Comment: Performed By: #### LIPB, TSH , HBA1C, CMP, CBC, FT4 ####[place] [address] [place], [place] [phone] WBC (Bld) [#/Vol] 5.25 3.70-11.00 k/uL Normal 12-08-2019 [facility] ([id number]) Comment: Performed By: #### LIPB, TSH , HBA1C, CMP, CBC, FT4 ####[place] [id number] [place], [place] [phone] obsolete on 2019-11 OBSOLETE Refill (INTMWS) Normal 12-07-2019 Manny mcdaniel [facility] SONNY DENNIS ([id number]) 1940 [facility] Date Time Provider Department ([id number]) 12/07/19 MATI MONTENEGRO INTMWS During your visit [...] tablet by mouth daily before breakfast. ID# [id number]: 30 tabletRfl: 2 Prescriptions as of 12/07/2019 [...] 03/20/2010 Cervicalgia [M54.2] 05/22/2010 Other physical therapy [[id number]] 06/21/2010 01/06/2016 Other specified disorder of bladder [...] Telephone (INTWS) Normal 12-01-2019 [facility] SONNYSONNY ([id number]) 1940 [facility] Date Time Provider Department ([id number]) 12/01/19 MATI MONTENEGRO INTMWS During your visit [...] Fully Assessed Reason for Visit: Patient Question [0267] Prescriptions as of 12/01/2019 Sig: HYDROCODONE 5 [...] 03/20/2010 Cervicalgia [M54.2] 05/22/2010 Other physical therapy [[id number]] 06/21/2010 01/06/2016 Other specified disorder of bladder [...] OBSOLETE Refill (INTMWS) Normal 11-23-2019 Manny mcdaniel [facility] SONNY DENNIS ([id number]) 1940 [facility] Date Time Provider Department ([id number]) 11/23/19 MATI MONTENEGRO During your visit today, we recorded the following informati on about you: Catherine Jesus Anne 11/23/2019 3:54 PM Signed Patient has been identified by name and date of : Yes Last office visit in this department: 07/06/2019 RX INSTRUCTIONS: Print and leave at the patient coordinator front desk. Call patient when complet e. Patient phones [...] follow up with either PCP o r NETWORK DIAGNOSTIC SUPPORT SPECIALIST Treasure Ballard 11/27/2019 3:57 PM Signed Patient [...] 03/20/2010 Cervicalgia [M54.2] 05/22/2010 Other physical therapy [[id number]] 06/21/2010 01/06/2016 Other specified disorder of bladder [...] 11/27/19 progress on 2019-10 PROGRESS HNO ID: [id number] Normal 11-16-2019 [facility] Author: Vidal Dennis [place] Service: ? ([id number]) Author Type: Physician Type: Progress Notes Filed: 11/16/2019 12:37 PM Note Text: Vidal Dennis MD Department of Orthopaedics Orth[facility] [address] [facility] [address] Dept: [phone] Dept November 16, 2019 CHIEF COMPLAINT: Established [...] (if applicable) and completion and review of replaced by [facility] anson r isk assessment/protocols (if appropriate): Affirmation of [...] Laterality Date - COLONOSCOP W/ OR W/O [facility] SPEC 01/29 Colonoscopy - COLONOSCOP W/ OR W/O [facility] SPEC 01/29, 04/05/06 - COLONOSCOPY W/BX 10/29/08 Diverticulosis - COLONOSCOPY W/BX 07/18/11 Repeat in - EGD W/O [facility] SPECIMEN W/BX 10/02, 04/05/06 - EGD W/O [...] SURGICAL HISTORY OF 1997 Right elbow - [facility] - PAST SURGICAL HISTORY OF Left 01-27-16 [...] mout h twice daily with meals. ID# [id number] - cyanocobalamin 1,000 mcg/mL 1 mL IM every 3 weeks - HYDROcodone-acetaminophen (NORCO) 5-325 mg per tablet Take 1 tablet by mouth every 6 hours as needed for Pain for up to 14 days. Do not start before October 26, 2019. - levothyroxine (SYNTHROID) 50 mcg tablet Take 1 tablet by m outh daily before breakfast. ID# [id number] - gabapentin (NEURONTIN) 300 mg capsule Take 2 capsules by m outh twice daily for 180 days. ID# [id number] - lisinopril (ZESTRIL, PRINIVIL) 10 mg tablet Take 1 tablet by mouth once daily. As directed ID# [id number] - cyclobenzaprine (FLEXERIL) 10 mg tablet Take 1 tablet by m outh daily at bedtime. ID# [id number] - atorvastatin (LIPITOR) 20 mg tablet Take 1 tablet by mouth once daily. - mirtazapine (REMERON) 15 mg tablet Take 1 tablet by mouth daily at bedtime. ID# [id number] - PARoxetine (PAXIL) 10 mg tablet Take 1 tablet by mouth onc e daily. ID# [id number] - calcium carbonate (CALCIUM 600 ORAL) Take [...] by mouth da eb with breakfast. ID# [id number] - PNV Cmb#40-Rxeq-Fbfyf Acid ( COMPLETE) 14 mg iron- 400 mcg tab Take by mouth. Pt is taking 2 tablets daily - buPROPion XL (WELLBUTRIN XL) 150 mg 24 hr tablet Take 1 ta blet by mouth once daily. ID# [id number] - Blood-Glucose Meter monitoring kit Glucose Meter [...] mout h twice daily with meals. ID# [id number] - furosemide (LASIX) 20 mg tablet Take [...] anxiety) This note was partially generated using Purplle recogni tion system, and there may be some incorrect words, spellings, and punctu ation that were not noted in checking the note before saving. Vidal Dennis MD PROGRESS HNO ID: [id number] Normal 11-16-2019 [facility] Author: Syl Arreola [facility] Service: ? ([id number]) Author Type: ? Type: Progress Notes Filed: [...] 2019-11-16 CNOV Office Visit (ORTHWS) Normal 11-16-19 [place] [facility] SONNY DENNIS ([id number]) 1940 [facility] Date Time Provider Department ([id number]) 11/16/19 9:20 AM VIDAL DENNIS During your visit today, we recorded the following informati on about you: Syl Arreola Ma 11/16/2019 12:37 PM Signed [facility] INTAKE FLOWSHEET DATA Risk [...] Vidal Dennis MD Department of Orthopaedics Orthopaedics [address] [place] [address] Dept: [phone] Dept November 16, 2019 CHIEF COMPLAINT: Established [...] SURGICAL HISTORY OF 1997 Right elbow - [facility] - PAST SURGICAL HISTORY OF Left 16 [...] by mouth twice daily with meals. ID# [id number] - cyanocobalamin 1,000 mcg/mL 1 mL IM every 3 weeks - HYDROcodone-acetaminophen (NORCO) 5-32 5 mg per tablet Take 1 tablet by mouth every 6 hours as needed for Pain for up to 14 da ys. Do not start before October 26, 2019. - levothyroxine (SYNTHROID) 50 mcg tablet Take 1 tablet by mouth daily before breakfast. ID# [id number] - gabapentin (NEURONTIN) 300 mg capsule Take 2 capsule s by mouth twice daily for 180 days. ID# [id number] - lisinopril (ZESTRIL, PRINIVIL) 10 mg tablet Take 1 tablet by mouth once daily. As directed ID# [id number] - cyclobenzaprine (FLEXERIL) 10 mg tablet Take 1 tablet by m outh daily at bedtime. ID# SEDWSH9J - atorvastatin (LIPITOR) 20 mg tablet Take 1 tablet by mouth once daily. - mirtazapine (REMERON) 15 mg tablet Take 1 tabl et by mouth daily at bedtime. ID# [id number] - PARoxetine (PAXIL) 10 mg tablet Take 1 tablet by mouth onc e daily. ID# AAMTVV5Y - calcium carbonate (CALCIUM 600 ORAL) Take [...] tablet by mouth daily with breakfast. ID# KUSQUI4W - PNV Cmb#29-Qyic-Xjfpx Acid ( COMPLETE) 14 mg iron- 400 mcg tab Take by mouth. Pt is taking 2 tablets daily - buPROPion XL (WELLBUTRIN XL) 150 mg 24 hr tablet Take 1 tablet by mouth once daily. ID# QQGUJO1M - Blood-Glucose Meter monitoring kit Glucose Met [...] by mouth twice daily with meals. ID# GKAMRC7I - furosemide (LASIX) 20 mg tablet Take [...] anxiety) This note was partially generated using [employer]AboutMyStar system, and there may be some incorrect words, spellings, and punctuat ion that were not noted in checking the note before saving. Vidal Dennis MD Referring Provider: JAKE FISH (FINANCIAL AID MANAGER) [[id number]] Allergies As of Date: 11/16/2019 Noted Allergy [...] Diagnosis:Left hip pain [M25.552] Order(s):CONSULT TO ORTHOPAEDICS [9002] Order #: [id number] ty: 1 Large Joint Arthro/Inj: L greater trochanteric bursa [IUQ616 ] Order #: [id number] betamethasone acetate-betamethasone sodium phosphate 6 mg in [...] 03/20/2010 Cervicalgia [M54.2] 05/22/2010 Other physical therapy [[id number]] 06/21/2010 01/06/2016 Other specified disorder of bladder [...] on 2019-10 OBSOLETE Refill (INTMWS) Normal 11-09-2019 [facility] SONNY DENNIS ([id number]) 1940 [facility] Time Provider Department ([id number]) 11/09/19 JAKE FISH (JANNY) INTMWS During your [...] y mouth twice daily with meals. ID# [id number]: 180 tabletRfl: 3 metFORMIN (GLUCOPHAGE) 850 mg tabletTake 1 tablet by mouth t wice daily with meals. ID# [id number]: 60 tabletRfl: 1 Prescriptions as of 11/09/2019 [...] 03/20/2010 Cervicalgia [M54.2] 05/22/2010 Other physical therapy [[id number]] 06/21/2010 01/06/2016 Other specified disorder of bladder [...] JAKE BLACKMON on 11/09/19 [facility]ulinon on [facility]11-[facility]) Normal 11-06-2019 [place] [facility] SONNY DENNIS ([id number]) 1940 [facility] Date Time Provider Department ([id number]) 11/06/19 MATI MONTENEGRO INTMWS During your visit [...] take with food. Authorizing Provider: MAYRA POND ([facility]) Mayra Pond APRN.PAULINO Damon Ma 11/06/2019 4:14 PM Signed Patient notified. Arley Glover RN 11/06/2019 4:46 PM Signed Pt called, verified by name and birthdate. Reviewed below no te with pt. Pt upset that she has norco rx to take. Pt states s he does not have any. Advised pt to contact [facility] about this rx. Arley Glover RN Allergies [...] 03/20/2010 Cervicalgia [M54.2] 05/22/2010 Other physical therapy [[id number]] 06/21/2010 01/06/2016 Other specified disorder of bladder [...] on 11/06/19 cnpn on 2019-10-29 [facility] Normal 10-29-2019 [facility] SONNY DENNIS ([id number]) 1940 [facility] Date Time Provider Department (84560) 10/29/19 MATI MONTENEGRO INTMWS During your visit [...] for refill. Please advise patient. Jake Fish APRN.FINANCIAL AID MANAGER 10/29/2019 5:06 PM Signed Please get ER record to verify dosing of prednisone Ivis Montelongo LPN 10/30/2019 11:03 AM Signed Printed and in POD to review. The rx was prednisone 40 mg daily #10. Jake Fish APRN.FINANCIAL AID MANAGER 10/30/2019 11:39 AM Signed No mention of repeating prednisone, only to foll ow up with PCP in one week in ER record. did suspect hip bursitis. If still having pain, may resume daypro, refill sent to [facility]. Can offer appt with ortho doctor if [...] pain present, recommend follow u p with [facility] doctor - history of spinal fusion, donovan rods on [facility] XR. Ivis Lon NURSE OFFICE 10/31/2019 8:46 AM Signed Called pt and [...] days.Disp: 15 tabletRfl: 0 CONSULT TO ORTHOPAEDICS [9054] Order #: [id number]: 1 FUT URE Prescriptions as of 10/29/2019 [...] 03/20/2010 Cervicalgia [M54.2] 05/22/2010 Other physical therapy [[id number]] 06/21/2010 01/06/2016 Other specified disorder of bladder [...] CNPN Telephone (PTWS) Normal 10-26-2019 [place] rodriguez [facility] SONNY DENNIS ([id number]) 1940 [facility] Time Provider Department ([id number]) 10/26/19 KRANTHI LARKIN (PT) PTWS During your visit today, we recorded the following informati on about you: Kranthi Larkin, PT 10/26/2019 10:33 AM Signed Pt called this morning to report that she had increased leg pain over the weekend and difficulty walking. She reports that she was r eferred to ED for evaluation and therefore she was seen at [facility] on Saturd ay 10/24/19. Pt reports being [...] 03/20/2010 Cervicalgia [M54.2] 05/22/2010 Other physical therapy [[id number]] 06/21/2010 01/06/2016 Other specified disorder of bladder [...] with radiculopathy affecting l*10/13/2019 Encounter Status:Closed by KRANTHI LARKIN PT on 10/26/19 progress on 2019-09 PROGRESS HNO ID: [id number] Normal 10-20-2019 [facility] Author: Kranthi (Davion) Ch[facility] [place] ([id number]) Service: ? Author Type: Physical Therapist Type: Progress Notes Filed: 10/20/2019 11:15 AM Note Text: [facility] PHYSICAL THERAPY TELEVISIT NOTE Patient initiated and consented to Televisit to consult chiquis jauregui their Physical Therapy reason for Televisit is [facility] g yosefunc healthfatou. Persons Present: patient Chief Complaint/Reason: L lumbar [...] does not k now how to use [employer] and does not have a functioning email account. I f text method does not work, a handout will be mailed to her. PLAN: Plan: Follow up phone call in 1 weeks for re-check and HEP modification prn. She will call sooner prn. Total Time Spent: 11-20 minutes Kranthi Larkin PT cntherapy on 10-19 CNTHERAPY OT/PT/Speech Visit (PTWS) Normal - [place] SONNY DENNIS ([id number]) 1940 [facility] Date Time Provider Department [place] 10/20/19 10:45 AM KRANTHI LARKIN (PT) PTWS ([id number]) Date Time Provider Department [place] 10/20/2019 10:45 AM [id number], BRENT (PT) PTWS [facility] R Reason for Visit: Rehab Televisit [6512] Physical Therapy [503] Primary Visit Diagnosis:Lumbar back [...] on 2019-10-20 CNPN Telephone (INTMWS) Normal 10-20-2019 [place] [facility] SONNY DENNIS ([id number]) 1940 [facility] Date Time Provider Department ([id number]) 10/20/19 MATI MONTENEGRO INTMERA During your visit today, we recorded the following informati on about you: Radha Owens LPN 10/20/2019 4:54 PM Signed Patient calling to see what she needs to do to g et a refill on her [place]. She does not have a smart phone. Can she do another phone apt or does it have to be a virtual apt. 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 Please advise. She has only 2 days of [place] left. PH: . Radha Montelongo LPN 10/21/2019 [...] on at least a telephone visit in [facility] if not able to bring her in for Face to Face visit in October (depends on COVID 19 precautions next [facility]) Ivis Montelongo RACHEL 10/22/2019 10:03 AM Signed [...] 03/20/2010 Cervicalgia [M54.2] 05/22/2010 Other physical therapy [[id number]] 06/21/2010 01/06/2016 Other specified disorder of bladder [...] 10/26/19 progress on 2019-09 PROGRESS HNO ID: [id number] Normal 10-13-2019 [place] Author: Kranthi (Pt) [facility] Service: ? [place] Author Type: Physical Therapist ([id number]) Type: Progress Notes Filed: 10/13/2019 5:30 PM [...] visit) Planned Treatment Interventions: Therapeutic exercise;Manual therapy;Therapeutic activities;Self-fdc management;Gai t Training;Patient/Family/Caregiver Education;Body Mechanics T raining [...] tactile cuing. Patient education as noted. Billing: [facility]: Evaluation - Moderate Complexity (89955) Therapeutic Exercise (49941): 1:1 time: 30 minutes (2 units: 23-37 mins) Total time / Length of visit: 60 minutes Kranthi Larkin PT cntherapy on 10-12 CNTHERAPY OT/PT/Speech Visit (PTWS) Normal 09-29 [place] SONNY DENNIS ([id number]) 1940 [facility] Date Time Provider Department [place] 10/13/19 10:00 AM KRANTHI LARKINPT) PTWS ([id number]) Date Time Provider Department [place] 10/13/2019 10:00 AM [id number], BRENT (PT) PTWS [facility] R Reason for Visit: PT Eval [...] Planned Treatment Interventi ons: Therapeutic exercise;Manual therapy;Therapeutic activities;Self-fdc management;Gait Training;Patient /Family/Caregiver Education;Body Mechanics Training PLAN [...] tactile cuing. Patient education as noted. Billing: [facility]: Evaluation - Moderate Complexity (27874) Therapeutic Exercise (57824): 1:1 time: 30 minutes (2 units: 23-37 mins) Total time / Length of visit: 60 minutes Kranthi Larkin PT progress on 2019-09 PROGRESS HNO ID: [id number] Normal 10-12-2019 [facility] Author: Mati Montenegro [place] ([id number]) Service: ? Author Type: Physician Type: Progress Notes Filed: 10/12/2019 3:28 PM Note Text: This Team Access Model visit is a phone encounter. It requir ed patient-provider interaction for the medical decision making as documented below. This note was created using [employer] [place]. Subjective Sonny Dennis is a 79 year [...] surgery devel oped the bursitis pain. Taking [place] more often did help. Was 10/10 when [...] by m outh daily before breakfast. ID# [id number] - gabapentin (NEURONTIN) 300 mg capsule Take 2 capsules by m outh twice daily for 180 days. ID# [id number] - furosemide (LASIX) 20 mg tablet Take 1 tablet by mouth onc e daily. as needed for leg swelling. - lisinopril (ZESTRIL, PRINIVIL) 10 mg tablet Take 1 tablet by mouth once daily. As directed ID# ASEENI3F - nystatin (MYCOSTATIN) 100,000 unit/mL suspension One teasp oon swish in mouth for several minutes then swallow (or expectorate) four times daily. Use until gone. - famotidine (PEPCID) 20 mg tablet Take 1 tablet by mouth tw ice daily. - cyclobenzaprine (FLEXERIL) 10 mg tablet Take 1 tablet by m outh daily at bedtime. ID# [id number] - atorvastatin (LIPITOR) 20 mg tablet Take 1 tablet by mouth once daily. - mirtazapine (REMERON) 15 mg tablet Take 1 tablet by mouth daily at bedtime. ID# CXLVVD1W - PARoxetine (PAXIL) 10 mg tablet Take 1 tablet by mouth onc e daily. ID# EJAKXR5R - perflutren lipid microspheres (DEFINITY) 1.1 mg/mL [...] by mouth da eb with breakfast. ID# ZSSWWQ4Q - PNV Cmb#26-Yqtt-Okmxr Acid ( COMPLETE) 14 mg iron- 400 mcg tab Take by mouth. Pt is taking 2 tablets daily - cyanocobalamin 1,000 mcg/mL soln 1 mL IM every 3 weeks - buPROPion XL (WELLBUTRIN XL) 150 mg 24 hr tablet Take 1 ta blet by mouth once daily. ID# QWNIKT8P - metFORMIN (GLUCOPHAGE) 850 mg tablet Take 1 tablet by mout h twice daily with meals. ID# ORYTYO5T - potassium chloride SR (MICRO-K) 10 mEq [...] cold sores - Lancets (ACCU-CHEK MULTICLIX LANCET) [facility] lancets Use as i nstructed Current Facility-Administered [...] see whether or not had gotten the [place] prescription that I had sent last week. [...] on 2019-10-05 CNPN Telephone (INTMWS) Normal 10-05-2019 [place] [facility] SONNYSONNY Agueda ([id number]) 1940 [facility] [place] Date Time Provider Department ([id number]) 10/05/19 MATI MONTENEGRO INTSILVIANO During your visit today, we recorded the following informati on about you: Radha Owens LPN 10/05/2019 8:36 AM Signed Patient calling with severe leg pain. No t getting better, no relief. She has 1 Radha Owens LPN 10/05/2019 8:39 AM Signed She has 1 [place] left and not sure what to do. The pain per p atient is so severe. She was informed that per last [facility] a virtual apt or apt in the office would be needed. She has no way to come in for an apt or do a virtual apt. Please advise patient. Radha Montenegro MD 10/05/2019 7:28 PM Signed This Team Access Model visit is a [employer] message encounter. It required patient-provider interaction for [...] the pain m ed helps. Jake Fish APRN.FINANCIAL AID MANAGER 10/06/2019 7:49 AM Signed did you want [...] 03/20/2010 Cervicalgia [M54.2] 05/22/2010 Other physical therapy [[id number]] 06/21/2010 01/06/2016 Other specified disorder of bladder [...] on 2019-09-28 CNPN Telephone (INTMWS) Normal 09-28-2019 [place] SONNY Lopez ([id number]) 1940 [address] [place] Date Time Provider Department ([id number]) 09/28/19 MATI MONTENEGRO INTAguedaWS During your visit [...] message to pt with info. Christyjanay Kirby NURSE OFFICE 09/29/2019 4:42 PM Signed Patient returned call [...] Time visit if needs refills. Chelsea Farris NURSE OFFICE 09/29/2019 5:55 PM Signed Patient notified. Her [...] 03/20/2010 Cervicalgia [M54.2] 05/22/2010 Other physical therapy [[id number]] 06/21/2010 01/06/2016 Other specified disorder of bladder [...] on 2019-08 OBSOLETE Refill (INTMWS) Normal 09-23-2019 [facility] SONNY DENNIS ([id number]) 1940 [facility] Time Provider Department ([id number]) 09/23/19 MATI MONTENEGRO INTMWS During your visit today, we recorded the following informati on about you: Mauro Romeo [facility] 09/23/2019 11:46 AM Signed Patient stated she [...] to go to PT. Patient has some [place] left over and she is wondering if she can take this. Reports again in severe pain to the point it makes her cry. Please advise patient. Mati Montenegro MD 09/23/2019 2:17 PM Signed [facility] Prescriptions shows filled levothyroxine 50 mcg pil ls in 08/04/19 oer medication dispense history. Looks fabrice rucker was sent for 30 instead of 90 pills in August by [facility] have her check her bottle to see if says 25 or 50 since might have been taking two 50's by mistake or she still has been taking prior bottl e of 25s Looks should have been getti ng 50mcg pills since last May but that as sent to [facility] of [facility] then August was sent again for only [...] tablet by mouth daily before breakfast. ID# [id number]: 30 tabletRfl: 2 Prescriptions as of 09/23/2019 [...] 03/20/2010 Cervicalgia [M54.2] 05/22/2010 Other physical therapy [MEU5389] 06/21/2010 01/06/2016 Other specified disorder of bladder [...] on 2019-09-17 CNPN Telephone (FAMPWS) Normal 09-17-2019 [place] SONNY Lopez ([id number]) 1940 [facility] Date Time Provider Department ([id number]) 09/17/19 AMTI MONTENEGROWS During your visit today, we recorded [...] d/t COVID19 concerns. Please advise. Mayra Fish APRN.FINANCIAL AID MANAGER 09/18/2019 11:48 AM Signed Aleve should be [...] PCP may have alternate recommendations Martinez Hairston [facility] 09/18/2019 2:10 PM Signed Patient is notified of all information and verbalizes unders kofi Hairston [facility] September 18, 2019 2:10 PM Allergies [...] 03/20/2010 Cervicalgia [M54.2] 05/22/2010 Other physical therapy [[id number]] 06/21/2010 01/06/2016 Other specified disorder of bladder [...] on 2019-09-16 CNPN Telephone (ORTHWS) Normal 09-16-2019 [place] [facility] SONNY DENNIS ([id number]) 1940 [facility] Date Time Provider Department ([id number]) 09/16/19 VIDAL DENNIS During your visit today, we recorded the following informati on about you: Candace Luukadi Stephen 09/16/2019 3:15 PM Signed Patient calling stating that she is still having pain in L leg and hip. Rates pain 8-10/10 and states it is sharp and stabbing. Patient had injection at [facility] on 09/06 OV. Vidal Dennis MD [...] 03/20/2010 Cervicalgia [M54.2] 05/22/2010 Other physical therapy [[id number]] 06/21/2010 01/06/2016 Other specified disorder of bladder [...] 2019-08 OBSOLETE Refill (INTMWS) Normal 09-14-2019 [facility] SONNY DENNIS ([id number]) 1940 [facility] Date Time Provider Department ([id number]) 09/14/19 MATI MONTENEGRO INTMWS During your visit today, we recorded the following informati on about you: Denise Traore Pss 09/14/2019 4:10 PM Signed Patient has been identified by name and date of : Yes Pending Prescriptions Disp Refills GABAPENTIN 300 MG CAPSULE 360 capsule 1 Sig: Take 2 capsules by mouth twice daily for 180 days. ID# [id number] ROSARIO: No FUROSEMIDE 20 MG TABLET 30 tablet 0 Sig: Take 1 tablet by mouth once daily. as needed for leg sw elling. ROSARIO: No RX INSTRUCTIONS: Patient aware RX will be sent to pharmacy. No need to notify patient. Patient aware RX escripted to mail away pharmacy. No n eed to notify patient. Denise Traore Pss Jake Fish APRN.FINANCIAL AID MANAGER 09/14/2019 4:49 PM Signed rx sent Allergies [...] mouth twice daily for 180 days. ID# [id number]: 360 capsuleRfl: 1 furosemide (LASIX) 20 mg [...] 03/20/2010 Cervicalgia [M54.2] 05/22/2010 Other physical therapy [[id number]] 06/21/2010 01/06/2016 Other specified disorder of bladder [...] mouth twice daily for 180 days. ID# [id number] FUROSEMIDE 20 MG TABLET 30 t* 0 09/14/2019 Route: ORAL Sig: Take 1 tablet by mouth once daily. as needed for leg sw elling. Medications Discontinued During This Encounter gabapentin (NEURONTIN) 300 mg capsule 360 * 1 09/04/20182019 Route: ORAL Sig: Take 2 capsules by mouth twice daily for 180 days. ID# [id number] Disc: Reason for discontinue is not on file. furosemide (LASIX) 20 mg tablet 30 t* 0 05/26/2019 09/14/2019 Route: ORAL Sig: Take 1 tablet by mouth once daily. as needed for leg sw elling. Disc: Reason for discontinue is not on file. Encounter Status:Closed by ABE VEGACARLOSI on 09/14/19 progress on 2019-08 PROGRESS HNO ID: [id number] Normal 09-07-2019 [facility] Author: Vidal Dennis [place] Service: ? ([id number]) Author Type: Physician Type: Progress Notes Filed: 09/07/2019 9:16 AM Note Text: Vidal Dennis MD Department of Orthopaedics Orthopaedics [address] [facility] [address] Dept: [phone] Dept September 07, 2019 CHIEF COMPLAINT: Established [...] Back surgeon referred patient to return to nd in management. She did have an injection [...] hip. ?Left hip is maintained. ? Chondrocalcinosis. Systems Manager: WILLEI ? Transcribe Date/Time: May 12:03P Dictated by : DAMARI DOHERTY MD This examination was interpreted and the report reviewed and electronically signed by: DAMARI DOHERTY MD on May 12:04PM ?EST Results-Findings * * *Final Report* * * DATE OF EXAM: May ?9:54AM ? WOX ? 5351 ?- ?XR HIP 3V PELV+ AP/LAT LT ?/ [id number] PROCEDURE REASON: Left leg pain ?? ? [...] Laterality Date - COLONOSCOP W/ OR W/O [facility] SPEC 01/29 Colonoscopy - COLONOSCOP W/ OR W/O [facility] SPEC 01/29, 04/05/06 - COLONOSCOPY W/BX 10/29/08 Diverticulosis - COLONOSCOPY W/BX 07/18/11 Repeat in - EGD W/O [facility] SPECIMEN W/BX 10/02, 04/05/06 - EGD W/O [facility] SPECIMEN W/BX 10/29/08 Patent gastrojejunostomy - EGD [...] SURGICAL HISTORY OF 1997 Right elbow - [facility] - PAST SURGICAL HISTORY OF Left 16 [...] by mouth once daily. As directed ID# [id number] - levothyroxine (SYNTHROID) 50 mcg tablet Take 1 tablet by m outh daily before breakfast. ID# [id number] - famotidine (PEPCID) 20 mg tablet Take 1 tablet by mouth tw ice daily. - cyclobenzaprine (FLEXERIL) 10 mg tablet Take 1 tablet by m outh daily at bedtime. ID# [id number] - atorvastatin (LIPITOR) 20 mg tablet Take 1 tablet by mouth once daily. - mirtazapine (REMERON) 15 mg tablet Take 1 tablet by mouth daily at bedtime. ID# VNJPRF3L - PARoxetine (PAXIL) 10 mg tablet Take 1 tablet by mouth onc e daily. ID# YSPNXM0P - furosemide (LASIX) 20 mg tablet Take [...] by mouth da eb with breakfast. ID# KGHWYS7H - PNV Cmb#46-Zrva-Twfef Acid ( COMPLETE) 14 mg iron- 400 mcg tab Take by mouth. Pt is taking 2 tablets daily - buPROPion XL (WELLBUTRIN XL) 150 mg 24 hr tablet Take 1 ta blet by mouth once daily. ID# [id number] - gabapentin (NEURONTIN) 300 mg capsule Take 2 capsules by m outh twice daily for 180 days. ID# HLBUOL2W - metFORMIN (GLUCOPHAGE) 850 mg tablet Take 1 tablet by mout h twice daily with meals. ID# AMLNXA5A - Blood-Glucose Meter monitoring kit Glucose Meter [...] VelozSonny M Sonny was referred t o nh for consultation by the following physician. This consultation n ote will be sent to the following physician by either mail or electronic medical record. Mati Montenegro MD [address] [facility] [id number] This note was partially generated using Purplle recogni tion system, and there may be some incorrect words, spellings, and punctu ation that were not noted in checking the note before saving. Vidal Dennis MD cnov on 2019-09-07 CNOV Office Visit (JÚNIOR) Normal 09-07-19 [facility] SONNY DENNIS ([id number]) [address] [place] Date Time Provider Department () 09/07/19 9:00 AM VIDAL DENNIS During your visit today, we recorded the following informati on about you: Vidal Dennis MD 09/07/2019 9:16 AM Signed Vidal Dennis MD Department of Orthopaedics Orthopaedics [address] [facility] [address] Dept: [phone] Dept September 07, 2019 CHIEF COMPLAINT: Established [...] did not get any relief. X-ray at [facility] on 06/04/2019. ASSESSMENT: M25.552 Greater trochanteric [...] hip. ?Left hip is maintained. ? Chondrocalcinosis. Systems Manager: PSCB ? Transcribe Date/Time: May 12:03P Dictated by : DAMARI DOHERTY MD This examination was interpreted and the report reviewed and electronically signed by: DAMARI DOHERTY MD on May 12:04PM ?EST Results-Findings * * *Final Report* * * DATE OF EXAM: May ?9:54AM ? WOX ? 5351 ?- ?XR HIP 3V PELV+ AP/LAT LT ?/ [id number] PROCEDURE REASON: Left leg pain ?? ? [...] SURGICAL HISTORY OF 1997 Right elbow - [facility] - PAST SURGICAL HISTORY OF Left 01-27-16 [...] by mouth once daily. As directed ID# [id number] - levothyroxine (SYNTHROID) 50 mcg tablet Take 1 tablet by mouth daily before breakfast. ID# QQSUTX4X - famotidine (PEPCID) 20 mg tablet Take 1 tablet by mouth tw ice daily. - cyclobenzaprine (FLEXERIL) 10 mg tablet Take 1 tablet by m outh daily at bedtime. ID# YLEMGN8T - atorvastatin (LIPITOR) 20 mg tablet Take 1 tablet by mouth once daily. - mirtazapine (REMERON) 15 mg tablet Take 1 tabl et by mouth daily at bedtime. ID# LILEGN3O - PARoxetine (PAXIL) 10 mg tablet Take 1 tablet by mouth onc e daily. ID# XSBWAC0D - furosemide (LASIX) 20 mg tablet Take [...] tablet by mouth daily with breakfast. ID# CNKBAZ3A - PNV Cmb#67-Krjf-Ubbmb Acid ( COMPLETE) 14 mg iron- 400 mcg tab Take by mouth. Pt is taking 2 tablets daily - buPROPion XL (WELLBUTRIN XL) 150 mg 24 hr tablet Take 1 tablet by mouth once daily. ID# GFHEZQ8W - gabapentin (NEURONTIN) 300 mg capsule Take 2 capsule s by mouth twice daily for 180 days. ID# BSFINO1U - metFORMIN (GLUCOPHAGE) 850 mg tablet T génesis 1 tablet by mouth twice daily with meals. ID# CNHCDA8I - Blood-Glucose Meter monitoring kit Glucose Met [...] or electronic medical record. Mati Montenegro MD [address] [facility] [id number] This note was partially generated using Accrediblenition system, and there may be some incorrect words, spellings, and punctuat ion that were not noted in checking the note before saving. MD Vidal Chacon MD 09/07/2019 9:25 AM Signed Addended by: VIDAL DENNIS MD on: 09/07/2019 09:25 AM Modules accepted: Orders Referring Provider: MATI MONTENEGRO [[id number]] Allergies As of Date: 09/07/2019 Noted Allergy [...] left lower extremity [M25.552] Order(s):CONSULT TO ORTHOPAEDICS [9075] Order #: [id number] ty: 1 Large Joint Arthro/Inj: L greater trochanteric bursa [EKP898 ] Order #: [id number] betamethasone acetate-betamethasone sodium phosphate 6 mg in jection (CELESTONE)Disp: Rfl: lidocaine (PF) 10 mg/mL (1 %) 2 mL injection (XYLOCAINE)Disp : Rfl: CONSULT TO PHYSICAL THERAPY [1547] Order #: [id number]: 1 Prescriptions as of 09/07/2019 Sig: HYDROCODONE [...] 03/20/2010 Cervicalgia [M54.2] 05/22/2010 Other physical therapy [[id number]] 06/21/2010 01/06/2016 Other specified disorder of bladder [...] 2019-08 OBSOLETE Refill (INTMWS) Normal 08-18-2019 [facility] SONNY DENNIS ([id number]) 1940 [facility] Date Time Provider Department ([id number]) 08/18/19 MATI MONTENEGRO INTMWS During your visit [...] be seen every 2 month s per NV protocol since not really taking a high [...] TOX SCREEN ROUT UR [SQUTOX2] Order #: [id number] STANDING PAIN PANEL, UR QUANT [SQUQNTPP] Order #: [id number] STANDING Prescriptions as of 08/18/2019 Sig: HYDROCODONE [...] 03/20/2010 Cervicalgia [M54.2] 05/22/2010 Other physical therapy [[id number]] 06/21/2010 01/06/2016 Other specified disorder of bladder [...] OBSOLETE Refill (INTMWS) Normal 08-13-2019 [facility] SONNY DENNIS ([id number]) 1940 [facility] Date Time Provider Department ([id number]) 08/13/19 JAKE FISH (FINANCIAL AID MANAGER) INTMWS During your visit today, we recorded [...] by mouth once daily. As directed ID# [id number]: 90 tabletRfl: 3 Prescriptions as of 08/13/2019 [...] 03/20/2010 Cervicalgia [M54.2] 05/22/2010 Other physical therapy [[id number]] 06/21/2010 01/06/2016 Other specified disorder of bladder [...] 08/13/19 progress on 2019-08 PROGRESS HNO ID: [id number] Normal 08-11-2019 [facility] Author: Juan Luis Santiago ([id number]) Service: ? Author Type: Psychologist Type: Progress Notes Filed: 08/11/2019 2:55 PM Note Text: [facility] Progress Note Sonny Romeo Sonny 08/11/2019 [id number] Provider: Juan Luis Oreilly, PHD CPT Code: 74517 Psychotherapy 38-52 minutes Time: Approximately 50 minutes [...] by m outh daily before breakfast. ID# QMVCVQ0U - famotidine (PEPCID) 20 mg tablet Take 1 tablet by mouth tw ice daily. - cyclobenzaprine (FLEXERIL) 10 mg tablet Take 1 tablet by m outh daily at bedtime. ID# WNNRCX4Q - atorvastatin (LIPITOR) 20 mg tablet Take 1 tablet by mouth once daily. - mirtazapine (REMERON) 15 mg tablet Take 1 tablet by mouth daily at bedtime. ID# ZGMEXB8S - PARoxetine (PAXIL) 10 mg tablet Take 1 tablet by mouth onc e daily. ID# MMLFHQ4S - HYDROcodone-acetaminophen (NORCO) 5-325 mg per tablet [...] by mouth once daily. As directed ID# QLTUKN5C - calcium carbonate (CALCIUM 600 ORAL) Take [...] by mouth da eb with breakfast. ID# SUKAVH7N - PNV Cmb#88-Timo-Snbjf Acid ( COMPLETE) 14 mg iron- 400 mcg tab Take by mouth. Pt is taking 2 tablets daily - cyanocobalamin 1,000 mcg/mL soln 1 mL IM every 3 weeks - buPROPion XL (WELLBUTRIN XL) 150 mg 24 hr tablet Take 1 ta blet by mouth once daily. ID# NJOENN9P - gabapentin (NEURONTIN) 300 mg capsule Take 2 capsules by m outh twice daily for 180 days. ID# IJGJPR7D - metFORMIN (GLUCOPHAGE) 850 mg tablet Take 1 tablet by mout h twice daily with meals. ID# WVRKUQ9F - potassium chloride SR (MICRO-K) 10 mEq [...] : Deferred ? AXIS III : See [facility] medical notes ? AXIS IV: Problems related [...] on 2019-07 OBSOLETE Refill (INTMWS) Normal 07-31-2019 [facility] SONNY DENNIS ([id number]) 1940 [facility] Date Time Provider Department ([id number]) 07/31/19 MATI MONTENEGRO INTMWS During your visit [...] n eed to notify patient. Ally Tan [facility] Verito Vasquez LPN 08/03/2019 2:46 PM Signed [...] tablet by mouth daily before breakfast. ID# [id number]: 30 tabletRfl: 11 Prescriptions as of 07/31/2019 [...] 03/20/2010 Cervicalgia [M54.2] 05/22/2010 Other physical therapy [[id number]] 06/21/2010 01/06/2016 Other specified disorder of bladder [...] 2019-07 OBSOLETE Refill (INTMWS) Normal 07-23-2019 [facility] SONNY DENNIS ([id number]) 1940 [facility] Date Time Provider Department ([id number]) 07/23/19 MATI MONTENEGRO INTMWS During your visit today, we recorded the following informati on about you: Denise Traore Pss 07/23/2019 4:26 PM Signed Patient has been identified by name and date of : Yes famotidine (PEPCID) 20 mg tablet (Discontinued) 60 tablet 1 RX INSTRUCTIONS: Patient aware RX will be sent to pharmacy. No need to notify patient. Denise Traore Pss Jake Fish APRN.FINANCIAL AID MANAGER 07/24/2019 9:55 AM Signed Please verify if taking, noted to be discontinued by PCP . Ivis Montelongo NURSE OFFICE 07/24/2019 11:16 AM Signed Called pt and [...] (PEPCID) 20 mg tabletTake 1 tablet by [facility] twice daily.Disp: 60 tabletRfl: 2 Prescriptions as [...] 03/20/2010 Cervicalgia [M54.2] 05/22/2010 Other physical therapy [IHQ5454] 06/21/2010 01/06/2016 Other specified disorder of bladder [...] 07/24/19 progress on 2019-07 PROGRESS HNO ID: [id number] Normal 07-06-2019 [facility] Author: Mati Montenegro [place] ([id number]) Service: ? Author Type: Physician Type: Progress Notes Filed: 07/27/2019 12:56 AM Note Text: This note was created using [employer] [place]. This Team Access Model visit is a [...] 2019-07-06 CNOV Office Visit (INTMWS) Normal 07-06-19 [facility] SONNY DENNIS ([id number]) 1940 [facility] Date Time Provider Department ([id number]) 07/06/19 1:00 PM MATI MONTENEGRO INTMWS During your visit today, we recorded the following informati on about you: Pulse Respiration Blood pressure Weight 100/minute 20/minute 100/48 53.5 kg Mati Montenegro MD 07/27/2019 12:56 AM Signed This note was created using [employer] [place]. This Team Access Model visit is a [...] [M25.552] Order(s):CONSULT TO ORTHOPAEDICS [9026] Order #: [id number] ty: 1 FUTURE Prescriptions as of 07/06/2019 [...] 03/20/2010 Cervicalgia [M54.2] 05/22/2010 Other physical therapy [BDQ7539] 06/21/2010 01/06/2016 Other specified disorder of bladder [...] hmspatientid on 2019-06-30 OOP 06-30-2019 - 06-30-2019 [facility] [place] ([id number]) obsolete on 2019-05 OBSOLETE Refill (INTMWS) Normal 06-29-2019 [facility] SONNY DENNIS ([id number]) 1940 [facility] Date Time Provider Department ([id number]) 06/29/19 MATI MONTENEGRO INTMERA During your visit today, we recorded the following informati on about you: Denise Traore [facility] 06/29/2019 9:19 AM Signed Patient has been identified by name and date of : Yes Pending Prescriptions Disp Refills CYCLOBENZAPRINE 10 MG TABLET 90 tablet 3 Sig: Take 1 tablet by mouth daily at bedtime. ID# [id number] ROSARIO: No RX INSTRUCTIONS: Patient aware RX escripted to mail away pharmacy. No n eed to notify patient. Denise Traore [facility] Verito Vasquez LPN 06/30/2019 2:02 PM Signed Patient has been identified by name and date of : Yes Patient phones for refill(s): Pending Prescriptions Disp Refills CYCLOBENZAPRINE 10 MG TABLET 90 tablet 3 Sig: Take 1 tablet by mouth daily at bedtime. ID# [id number] ROSARIO: No Date of last office visit [...] tablet by mouth daily at bedtime. ID# [id number]: 90 tabletRfl: 3 Prescriptions as of 06/29/2019 [...] 03/20/2010 Cervicalgia [M54.2] 05/22/2010 Other physical therapy [LOT7203] 06/21/2010 01/06/2016 Other specified disorder of bladder [...] tablet by mouth daily at bedtime. ID# [id number] Medications Discontinued During This Encounter cyclobenzaprine (FLEXERIL) 10 mg tab* 90 t* 3 08/14/201806/02 Route: ORAL Sig: Take 1 tablet by mouth daily at bedtime. ID# [id number] Disc: Reason for discontinue is not on file. Encounter Status:Closed by MATI MONTENEGRO MD on 06/30/19 progress on 2019-05 PROGRESS HNO ID: [id number] Normal 06-23-2019 [facility] Author: Mati Montenegro [place] ([id number]) Service: ? Author Type: Physician Type: Progress [...] by m outh daily before breakfast. ID# VSNJLM9W - lisinopril (ZESTRIL, PRINIVIL) 10 mg tablet Take 1 tablet by mouth once daily. As directed ID# GFSSFP3K - calcium carbonate (CALCIUM 600 ORAL) Take [...] by mouth da eb with breakfast. ID# BPPCQB5D - PNV Cmb#84-Xrsk-Afpfb Acid ( COMPLETE) 14 mg iron- 400 mcg tab Take by mouth. Pt is taking 2 tablets daily - cyanocobalamin 1,000 mcg/mL soln 1 mL IM every 3 weeks - buPROPion XL (WELLBUTRIN XL) 150 mg 24 hr tablet Take 1 ta blet by mouth once daily. ID# LKJKDR1G - atorvastatin (LIPITOR) 20 mg tablet Take 1 tablet by mouth once daily. - gabapentin (NEURONTIN) 300 mg capsule Take 2 capsules by m outh twice daily for 180 days. ID# LRXKCM0J - metFORMIN (GLUCOPHAGE) 850 mg tablet Take 1 tablet by mout h twice daily with meals. ID# QBRPZX6Z - cyclobenzaprine (FLEXERIL) 10 mg tablet Take 1 tablet by m outh daily at bedtime. ID# YCAAJZ2D - mirtazapine (REMERON) 15 mg tablet Take 1 tablet by mouth daily at bedtime. ID# RRXMRV7O - potassium chloride SR (MICRO-K) 10 mEq [...] tablet by mouth onc e daily. ID# NHKLZM6G - BD LUER-MARLIN SYRINGE 3 mL 23 [...] complication, without long-term current use of insulin ([facility]) E11.9 HGB A1C COMP METABOLIC PANEL LIPID [...] management. Able to do ADLs and IADLs. [facility] website checked and validated. All prescriptions have b een APPROPRIATELY filled. No suspicious activity was identified. 07/20/2019 by Mati Montenegro MD The majority of the visit was spent counseling and/or coordi nating care for the patient. Apkh-pv-rwgu time was at least 25 minutes. Mati Montenegro MD cnov on 2019-06-23 CNOV Office Visit (INTMWS) Normal 06-23-20 [place] [facility] SONNY DENNIS ([id number]) 1940 [facility] Date Time Provider Department ([id number]) 06/23/19 10:20 AM MATI MONTENEGRO INTMWS During your visit today, we recorded the following informati on about you: Pulse Respiration Blood pressure Weight 92/minute 20/minute 114/62 55.3 kg Mati Montenegro MD 07/20/2019 11:26 PM Signed Patient presents with: Follow Up SUBJECTIVE: Sonny Dennis is a 79 [facility] [...] tablet by mouth daily before breakfast. ID# [id number] - lisinopril (ZESTRIL, PRINIVIL) 10 mg tablet Take 1 tablet by mouth once daily. As directed ID# ZKLHGN7A - calcium carbonate (CALCIUM 600 ORAL) Take [...] tablet by mouth daily with breakfast. ID# CAUNPA2Z - PNV Cmb#27-Ylly-Spxrj Acid ( COMPLETE) 14 mg iron- 400 mcg tab Take by mouth. Pt is taking 2 tablets daily - cyanocobalamin 1,000 mcg/mL soln 1 mL IM every 3 weeks - buPROPion XL (WELLBUTRIN XL) 150 mg 24 hr tablet Take 1 tablet by mouth once daily. ID# OCKTEG4U - atorvastatin (LIPITOR) 20 mg tablet Take 1 tablet by mouth once daily. - gabapentin (NEURONTIN) 300 mg capsule Take 2 capsule s by mouth twice daily for 180 days. ID# ZGADFN8J - metFORMIN (GLUCOPHAGE) 850 mg tablet T génesis 1 tablet by mouth twice daily with meals. ID# GKFWVO4O - cyclobenzaprine (FLEXERIL) 10 mg tablet Take 1 tablet by m outh daily at bedtime. ID# KYXGHG6P - mirtazapine (REMERON) 15 mg tablet Take 1 tabl et by mouth daily at bedtime. ID# XEILEG4L - potassium chloride SR (MICRO-K) 10 mEq [...] tablet by mouth onc e daily. ID# SZDXWD0M - BD LUER-MARLIN SYRINGE 3 mL 23 [...] counseling and/or coordinating care for the patient. Rgqa-mj-lgvi time was at least 25 minutes. Mati [...] by mouth yamilex ly at bedtime. ID# UVIWCF4DSofp: 90 tabletRfl: 3 PARoxetine (PAXIL) 10 mg tabletTake 1 tablet by mouth once d aily. ID# EMTHED3HQgrc: 90 tabletRfl: 3 HYDROcodone-acetaminophen (NORCO) 5-325 mg per tabletTake 0. 5-1 tablets by mouth once daily as needed for up to 60 days.Disp : 40 tabletRfl: 0 HGB A1C [ORJMX6I] Order #: [id number] FUTURE COMP METABOLIC PANEL [SQCMP] Order #: [id number] FUTURE CBC [SQCBC] Order #: [id number] FUTURE LIPID PANEL BASIC [SQLIPB] Order #: [id number] FUTURE TSH BLD [SQTSH] Order #: [id number] FUTURE T4 FREE/FREE THYROX [SQFT4] Order #: [id number] FUTURE Prescriptions as of 06/23/2019 Sig: ATORVASTATIN [...] 03/20/2010 Cervicalgia [M54.2] 05/22/2010 Other physical therapy [RUX0932] 06/21/2010 01/06/2016 Other specified disorder of bladder [...] tablet by mouth daily at bedtime. ID# [id number] PAROXETINE 10 MG TABLET 90 t* 3 06/23/2019 Route: ORAL Sig: Take 1 tablet by mouth once daily. ID# SUFNQT7B HYDROCODONE 5 MG-ACETAMINOPHEN 325 M* 40 t* [...] tablet by mouth daily at bedtime. ID# TEOZOM5V Disc: Reason for discontinue is not on file. PARoxetine (PAXIL) 10 mg tablet 90 t* 3 07/12/2017 06/23/2019 Class: Print RX Cmt: Intentional dose decrease Route: ORAL Sig: Take 1 tablet by mouth once daily. ID# [id number] Disc: Reason for discontinue is not on [...] 07/20/19 progress on 2019-05 PROGRESS HNO ID: [id number] Normal 06-09-2019 [facility] Author: Clara Iraheta, [place] ([id number]) Service: ? Author Type: Physician Type: Progress Notes Filed: 06/09/2019 1:54 PM Note Text: [facility]ARDIOLOGY [facility] OUTPATIENT VISIT DATE June 09, 2019 PRIMARY CARE PHYSICIAN: Mati Montenegro MD [address] [place] [address] HISTORY OF PRESENT ILLNESS: Ms. Dennis is [...] SURGICAL HISTORY OF 1997 Right elbow - [facility] - PAST SURGICAL HISTORY OF Left 01-27-16 [...] Macrobid [Nitrofura* GI Upset - Adhesive Tape (Ilsa* Other: See Comments redness - Ativan [Lorazepam] [...] by angela th daily before breakfast. ID# ANKGUD1D lisinopril (ZESTRIL, PRINIVIL) 10 mg tablet Take 1 tablet by mouth once daily. As directed ID# IRZFPT2R calcium carbonate (CALCIUM 600 ORAL) Take by [...] by mouth miriam y with breakfast. ID# ZYMKKB6K PNV Cmb#61-Mrpo-Oiqow Acid ( COMPLETE) 14 mg iron- 4 00 mcg tab Take by mouth. Pt is taking 2 tablets daily cyanocobalamin 1,000 mcg/mL soln 1 mL IM every 3 weeks buPROPion XL (WELLBUTRIN XL) 150 mg 24 hr tablet Take 1 tabl et by mouth once daily. ID# QOZDQB7D atorvastatin (LIPITOR) 20 mg tablet Take 1 tablet by mouth o nce daily. metFORMIN (GLUCOPHAGE) 850 mg tablet Take 1 tablet by mouth twice daily with meals. ID# RPGPXJ6P cyclobenzaprine (FLEXERIL) 10 mg tablet Take 1 tablet by angela th daily at bedtime. ID# ASOPED9T mirtazapine (REMERON) 15 mg tablet Take 1 tablet by mouth da eb at bedtime. ID# IWNLEZ1D potassium chloride SR (MICRO-K) 10 mEq CR [...] 1 tablet by mouth once daily. ID# OOEFAO2G BD LUER-MARLIN SYRINGE 3 mL 23 x [...] th twice daily for 180 days. ID# ENSTQY2F Clara Iraheta, DO, FACC, FACOI Clinical and Preventive Cardiology [facility] cnov on 2019-06-09 CNOV Office Visit (CARDMM) Normal 06-09-20 19 [place] SONNY Lopez ([id number]) 1940 [facility] Time Provider Department ([id number]) 06/09/19 1:20 PM CLARA IRAHETA During your visit today, we recorded the following informati on about you: Pulse Blood pressure Weight Height 98/minute 98/56 55.9 kg 1.562 m Clara Iraheta DO, 06/09/2019 1:54 PM Signed [facility] OUTPATIENT VISIT DATE June 09, 2019 PRIMARY CARE PHYSICIAN: Mati Montenegro MD [address] [place] [address] HISTORY OF PRESENT ILLNESS: Ms. Dennis is [...] SURGICAL HISTORY OF 1997 Right elbow - [facility] - PAST SURGICAL HISTORY OF Left 01-27-16 [...] by m outh daily before breakfast. ID# [id number] lisinopril (ZESTRIL, PRINIVIL) 10 mg tab let Take 1 tablet by mouth once daily. As directed ID# LJCHDU1U calcium carbonate (CALCIUM 600 ORAL) Take by [...] b y mouth daily with breakfast. ID# VXDVFI8H PNV Cmb#92-Jsom-Quwqp Acid ( COM PLETE) 14 mg iron- 400 mcg tab Take by mouth. Pt is taking 2 tablets daily cyanocobalamin 1,000 mcg/mL soln 1 mL IM every 3 weeks buPROPion XL (WELLBUTRIN XL) 150 mg 24 hr tablet Take 1 tablet by mouth once daily. ID# URPMHQ2I atorvastatin (LIPITOR) 20 mg tablet Take 1 tablet by mouth o nce daily. metFORMIN (GLUCOPHAGE) 850 mg tablet Take 1 tablet by mouth twice daily with meals. ID# WMNYGT1V cyclobenzaprine (FLEXERIL) 10 mg tablet Take 1 tablet by angela th daily at bedtime. ID# RSDMIF9G mirtazapine (REMERON) 15 mg tablet Take 1 tablet by mouth daily at bedtime. ID# CFJQXM8B potassium chloride SR (MICRO-K) 10 mEq C [...] 1 tablet by mouth once daily. ID# YDBCTV2H BD LUER-MARLIN SYRINGE 3 mL 23 x [...] mouth twice daily for 180 days. ID# FNLRBF1F Clara Iraheta DO, FACC, FAC Clinical and Preventive Cardiology [facility] Referring Provider: CLARA IRAHETA [[id number]] Allergies As of Date: 06/09/2019 Noted Allergy [...] below 130/80 [I10] Mixed hyperlipidemia [E78.2] Order(s):ECHO [646524] Order #: [id number]: 1 FUTURE perflutren lipid microspheres ([employer]) 1.1 mg/mL injection (to be provided with [...] 03/20/2010 Cervicalgia [M54.2] 05/22/2010 Other physical therapy [MQY7858] 06/21/2010 01/06/2016 Other specified disorder of bladder [...] CLARA IRAHETA on 06/09/19 [facility]) [facility] 06-05-2019 [facility] SONNY DENNIS ([id number]) [address] [place] Date Time Provider Department ([id number]) 06/05/19 MATI MONTENEGROPWS During your visit today, [...] better let me know. Thanks, Michelle Podlogar, CARDIAC TECH.PAULINO Irwin LPN, RACHEL 06/05/2019 8:47 AM Signed [...] 03/20/2010 Cervicalgia [M54.2] 05/22/2010 Other physical therapy [[id number]] 06/21/2010 01/06/2016 Other specified disorder of bladder [...] *Final Report* * * Normal 1 08-05-2018 [facility] AP/LAT LT DATE OF EXAM: Jun 04 2019 9:54AM [place] ([id number]) WOX 5351 - XR HIP 3V PELV+ [...] left hip. Left hip is maintained. Chondrocalcinosis. Systems Manager: PSCB Transcribe Date/Time: Jun 04 2019 12:03P Dictated by : DAMARI DOHERTY MD This examination was interpreted and the report reviewed and electronically signed by: DAMARI DOHERTY MD on Jun 04 2019 12:04PM EST [id number] progress on 2019-05 PROGRESS HNO ID: [id number] Normal 06-04-2019 [facility] Author: Adelaida Polo () Deja Vuong ([id number]) Service: ? Author Type: Computer Teacher Type: Progress Notes Filed: 06/04/2019 9:55 AM [...] 04, 2019 9:40 AM PROGRESS HNO ID: [id number] Normal 06-04-2019 [facility] Author: Michelle Gray) Tanmay Santiago ([id number]) Service: ? Author Type: Nurse Practitioner Type: [...] by m outh daily before breakfast. ID# [id number] - lisinopril (ZESTRIL, PRINIVIL) 10 mg tablet Take 1 tablet by mouth once daily. As directed ID# ETYCNW4S - calcium carbonate (CALCIUM 600 ORAL) Take [...] by mouth da eb with breakfast. ID# YRZZGX6K - PNV Cmb#58-Noro-Zmouj Acid ( COMPLETE) 14 mg iron- 400 mcg tab Take by mouth. Pt is taking 2 tablets daily - cyanocobalamin 1,000 mcg/mL soln 1 mL IM every 3 weeks - buPROPion XL (WELLBUTRIN XL) 150 mg 24 hr tablet Take 1 ta blet by mouth once daily. ID# HDLVER1X - atorvastatin (LIPITOR) 20 mg tablet Take 1 tablet by mouth once daily. - metFORMIN (GLUCOPHAGE) 850 mg tablet Take 1 tablet by mout h twice daily with meals. ID# SRAZXQ7F - cyclobenzaprine (FLEXERIL) 10 mg tablet Take 1 tablet by m outh daily at bedtime. ID# VGCIJJ3K - mirtazapine (REMERON) 15 mg tablet Take 1 tablet by mouth daily at bedtime. ID# ROTLUX9V - Blood-Glucose Meter monitoring kit Glucose Meter [...] tablet by mouth onc e daily. ID# NSPTZW5P - BD LUER-MARLIN SYRINGE 3 mL 23 [...] outh twice daily for 180 days. ID# SOAHNL6V - potassium chloride SR (MICRO-K) 10 mEq [...] 55.8 kg (123 lb 1.9 oz) B NV 22.89 kg/m? . Vital signs reviewed by [...] CNOV Office Visit (FAMPWS) Normal 06-04-20 19 [place] [facility] SONNY DENNIS ([id number]) 1940 [facility] Date Time Provider Department ([id number]) 06/04/19 8:40 AM MIC[facility] DONAT[facility]PAULINO[facility] visit today, we recorded the [...] tablet by mouth daily before breakfast. ID# XZSIEC5Y - lisinopril (ZESTRIL, PRINIVIL) 10 mg tablet Take 1 tablet by mouth once daily. As directed ID# TJADUT1Z - calcium carbonate (CALCIUM 600 ORAL) Take [...] tablet by mouth daily with breakfast. ID# IKXCHV2J - PNV Cmb#21-Lgtu-Mqfck Acid ( COMPLETE) 14 mg iron- 400 mcg tab Take by mouth. Pt is taking 2 tablets daily - cyanocobalamin 1,000 mcg/mL soln 1 mL IM every 3 weeks - buPROPion XL (WELLBUTRIN XL) 150 mg 24 hr tablet Take 1 tablet by mouth once daily. ID# AYXVOY2F - atorvastatin (LIPITOR) 20 mg tablet Take 1 tablet by mouth once daily. - metFORMIN (GLUCOPHAGE) 850 mg tablet T génesis 1 tablet by mouth twice daily with meals. ID# CNLVJV7I - cyclobenzaprine (FLEXERIL) 10 mg tablet Take 1 tablet by m outh daily at bedtime. ID# BGWTPE8D - mirtazapine (REMERON) 15 mg tablet Take 1 tabl et by mouth daily at bedtime. ID# MCXSPM8Y - Blood-Glucose Meter monitoring kit Glucose Met [...] tablet by mouth onc e daily. ID# ASBJZK5F - BD LUER-MARLIN SYRINGE 3 mL 23 [...] mouth twice daily for 180 days. ID# LHATTY4D - potassium chloride SR (MICRO-K) 10 mEq [...] 55.8 kg (123 lb 1.9 oz) B NV 22.89 kg/m? . Vital signs reviewed by [...] with red flag sympt oms Michelle Podlogar, CARDIAC TECH.BUSINESS SERVICES CLERK Prescription instructions reviewed with patient as applicable. [...] Date Reviewed: 06/04/2019 Reviewed by: Teresa Romeo (Electrical Installation Inspector) RACHEL Irwin - Fully Assessed Reason for Visit: Thigh Pain [1586] Cmt: starts at top of lft groin goes into top of thigh down to knee started a week ago Primary Visit Diagnosis:Left leg pain [M79.605] Other Visit Diagnosis:Lower abdominal pain [R10.30] Order(s):XR HIP GENERAL 3V PELV/AP/LAT L T [[id number]] Order #: [id number] FUTURE Prescriptions as of 06/04/2019 Sig: FUROSEMIDE [...] 03/20/2010 Cervicalgia [M54.2] 05/22/2010 Other physical therapy [[id number]] 06/21/2010 01/06/2016 Other specified disorder of bladder [...] OBSOLETE Refill (INTMWS) Normal 06-02-2019 Manny mcdaniel [facility] SONNY DENNIS ([id number]) 1940 [facility] Time Provider Department ([id number]) 06/02/19 MATI MONTENEGRO INTMWS During your visit [...] 03/20/2010 Cervicalgia [M54.2] 05/22/2010 Other physical therapy [[id number]] 06/21/2010 01/06/2016 Other specified disorder of bladder [...] OBSOLETE Refill (INTMWS) Normal 05-29-2019 Manny mcdaniel [facility] SONNYSONNY Agueda ([id number]) 1940 [facility] Date Time Provider Department ([id number]) 05/29/19 MATI MONTENEGRO INTMERA During your visit today, we recorded the following informati on about you: Maile Rincon Pss 05/29/2019 8:10 AM Signed Patient's request for medication is as follows: Pending Prescriptions Disp Refills CYCLOBENZAPRINE 10 MG TABLET 90 tablet 3 Sig: Take 1 tablet by mouth daily at bedtime. ID# [id number] ROSARIO: No Prescription(s) as above. Please process accordingly. Maile Anen M Kiran Goldstein RN 05/29/2019 9:27 AM [...] 03/20/2010 Cervicalgia [M54.2] 05/22/2010 Other physical therapy [[id number]] 06/21/2010 01/06/2016 Other specified disorder of bladder [...] on 2019-05 OBSOLETE Refill (INTMWS) Normal 05-26-2019 [facility] SONNY DENNIS ([id number]) 1940 [facility] Date Time Provider Department ([id number]) 05/26/19 MATI MONTENEGRO INTMWS During your visit [...] 03/20/2010 Cervicalgia [M54.2] 05/22/2010 Other physical therapy [[id number]] 06/21/2010 01/06/2016 Other specified disorder of bladder [...] Encounter Status:Closed by JAKE BLACKMON [facility]) Normal 05-11-2019 [place] [facility] SONNY DENNIS ([id number]) 1940 [address] [place] Date Time Provider Department ([id number]) 05/11/19 JAKE FISH (JANNY) INTMWS During your [...] Abs Lymph 1.00 - 4.00 k/uL 1.60 Chilton% % 10.8 Abs Chilton <0.87 k/uL 0.73 Eosin% % 2.5 Abs [...] 232 - 1,245 pg/mL >2,000 (H) Magali Cruzjamari NURSE OFFICE 05/11/2019 4:37 PM Signed Patient notified of lab results and recommendations and verb alized understanding. Patient has been feeling very fat igue lately and would like to see if we could increase the levothyroxine to see if that he lps. Jake Fish, CARDIAC TECH.FINANCIAL AID MANAGER 05/12/2019 7:36 AM Signed Rx sent Alicia James NURSE OFFICE 05/12/2019 9:10 AM Signed left message on machine rx for thyroid was sent to mail [facility]. Mauro Romeo Pss 05/12/2019 10:03 AM [...] on 06/23/19. She sees Dr. Montenegro in [place] at 10:20 am and then has to be in [place] with Supervisor Steno Pool, Dr. Iraheta at 11:40 am. She is [...] by mouth once daily. As directed ID# [id number]: Rfl: BASIC METABOLIC PNL [SQBMP] Order #: [id number] FUTURE TSH BLD [SQTSH] Order #: [id number] FUTURE T4 FREE/FREE THYROX [SQFT4] Order #: [id number] FUTURE levothyroxine (SYNTHROID) 50 mcg tabletTake 1 tablet by mout h daily before breakfast. ID# [id number]: 30 tabletRfl: 5 Prescriptions as of 05/11/2019 [...] 03/20/2010 Cervicalgia [M54.2] 05/22/2010 Other physical therapy [[id number]] 06/21/2010 01/06/2016 Other specified disorder of bladder [...] (Vitamin B12) >2000 232-1245 pg/mL High 2018 [facility] [Mass/Vol] [place] ([id number]) Comment: Performed By: #### CBC, LIPB , B12, HBA1C, CMP, FT4, TSH ####[facility] [address] [place], [place] [phone] tsh on 2019-05-07 TSH Qn 5.690 0.270-4.200 uU/mL High 05-07-2019 [facility] ([id number]) Comment: Performed By: #### CBC, LIPB , B12, HBA1C, CMP, FT4, TSH ####[facility] [address] [place], [place] [phone] progress on 2019-05 PROGRESS HNO ID: [id number] Normal 05-07-2019 [facility] Author: Jake (Tablet Technician) [facility] ([id number]) Service: ? Author Type: Nurse Specialist Type: Progress Notes Filed: 05/07/2019 10:31 AM Note Text: This note was created using NoteWriter. Subjective Sonny Dennis is a 79 year old female. HPI She is s/p lumbar fusion 01/05/[address] Florencio Ibrahim [facility], feels she is doing better following surgery. [...] Abs Lymph 1.00 - 4.00 k/uL 1.60 Chilton% % 10.8 Abs Chilton <0.87 k/uL 0.73 Eosin% % 2.5 Abs [...] by angela th daily before breakfast. ID# YNVBWH0H glimepiride (AMARYL) 1 mg tablet Take 1 tablet by mouth miriam y with breakfast. ID# CXTFUO7U furosemide (LASIX) 20 mg tablet Take 1 tablet by mouth once daily. as needed for leg swelling. PNV Cmb#91-Hano-Ldyqd Acid ( COMPLETE) 14 mg iron- 4 00 mcg tab Take by mouth. Pt is taking 2 tablets daily cyanocobalamin 1,000 mcg/mL soln 1 mL IM every 3 weeks buPROPion XL (WELLBUTRIN XL) 150 mg 24 hr tablet Take 1 tabl et by mouth once daily. ID# [id number] atorvastatin (LIPITOR) 20 mg tablet Take 1 tablet by mouth o nce daily. gabapentin (NEURONTIN) 300 mg capsule Take 2 capsules by angela th twice daily for 180 days. ID# RZQGMT5D metFORMIN (GLUCOPHAGE) 850 mg tablet Take 1 tablet by mouth twice daily with meals. ID# SRNEED1H cyclobenzaprine (FLEXERIL) 10 mg tablet Take 1 tablet by anglea th daily at bedtime. ID# DOEKHN9N lisinopril (ZESTRIL, PRINIVIL) 10 mg tablet Take 1 tablet by mouth twice daily. As directed ID# SHQYOM6D mirtazapine (REMERON) 15 mg tablet Take 1 tablet by mouth da eb at bedtime. ID# VVXUCO5S Blood-Glucose Meter monitoring kit Glucose Meter of [...] 1 tablet by mouth once daily. ID# WTADTW7G BD LUER-MARLIN SYRINGE 3 mL 23 x [...] or other ca rdiac complaints Jake Fish, NBA.FINANCIAL AID MANAGER lipid panel, basic on 2019-05-07 Cholesterol [Mass/Vol] 120 <200 mg/dL Normal 019 [facility] (48913) Comment: Result Comment: <200 mg/dL, Desirable 200-239 mg/dL, Borderline hi gh >239 mg/dL, High Performed By: #### CBC, LIPB , B12, HBA1C, CMP, FT4, TSH ####[facility] [address] [place], [place] [phone] Cholesterol in HDL 56 >39 mg/dL Normal 05-07-2019 [facility] [Mass/Vol] (78799) Comment: Result Comment: 40-59 mg/dL, Acceptable >59 mg/dL, High: Negative ri sk factor for coronary heart disease <40 mg/dL, Low: Positive ris k factor for coronary heart disease Performed By: #### CBC, LIPB , B12, HBA1C, CMP, FT4, TSH ####[facility] [address] [place], [place] [phone] Cholesterol in LDL 43 <100 mg/dL Normal 05-07-2019 [facility] [Mass/Vol] [place] (53275) Comment: Result Comment: <100 mg/dL, Optimal 100-129 mg/dL, Near optimal/ above optimal 130-159 mg/dL, Borderline hi gh 160-189 mg/dL, High >189 mg/dL, Very high Secondary prevention optimal LDL Cholesterol levels are recommended to be < 70 mg/dL Performed By: #### CBC, LIPB , B12, HBA1C, CMP, FT4, TSH ####[facility] [place], [place] [phone] Fasting Time 12 hrs Normal 05-07-2019 [facility] (44469) Comment: Performed By: #### CBC, LIPB , B12, HBA1C, CMP, FT4, TSH ####[place] [address] [address], [place] [phone] LDL:HDL Ratio 0.77 <2.54 Normal 05-07-2019 [facility] (27441) Comment: Result Comment: Reference: 1. National Cholesterol Educ ation Program ATP III Guideline At-A-Glance Quick Desk Reference: National Heart, Lung, and Blood [place]. National Institutes of Health. 2001: NIH Publication No. 01-3305. 2. An International Atherosc lerosis Society position paper: global recommendations for the management of dyslipidemia: executive summary, Atherosclerosis. 2014: 232(2):410-413. Performed By: #### CBC, LIPB , B12, HBA1C, CMP, FT4, TSH ####[place] [address] [address], [place] [phone] Non HDL Cholesterol 64 <130 mg/dL Normal 05-07-2019 [facility] (08632) Comment: Result Comment: <130 mg/dL, Optimal 130-159 mg/dL, Near optimal/ above optimal 160-189 mg/dL, Borderline hi gh 190-219 mg/dL, High >219 mg/dL, Very high Secondary prevention optimal non HDL Cholesterol levels are recommended to be < 100 mg/dL Performed By: #### CBC, LIPB , B12, HBA1C, CMP, FT4, TSH ####[place] [address] [place], [place] [phone] TC:HDL Ratio 2.14 <5.10 Normal 05-07-2019 [facility] (85854) Comment: Performed By: #### CBC, LIPB , B12, HBA1C, CMP, FT4, TSH ####[place] [address] [place], [place] [phone] Triglyceride [Mass/Vol] 105 <150 mg/dL Normal 2018 [facility] (28594) Comment: Result Comment: <150 mg/dL, Normal 150-199 mg/dL, Borderline hi gh 200-499 mg/dL, High >499 mg/dL, Very high Performed By: #### CBC, LIPB , B12, HBA1C, CMP, FT4, TSH ####[place] [address] [place], [place] [phone] VLDL Cholesterol 21 <30 mg/dL Normal 05-07-2019 [facility] (87766) Comment: Performed By: #### CBC, LIPB , B12, HBA1C, CMP, FT4, TSH ####[place] [address] [place], [place] [phone] hemoglobin a1c on HbA1c (Bld) [Mass fraction] 154 mg/dL Normal [facility] (26747) Comment: Result Comment: eAG: (Estima rod average glucose) is a calculated value from HgbA1c and is automotive leasing sales representative of the average blood glucose level in the last 2-3 month period. Performed By: #### CBC, LIPB , B12, HBA1C, CMP, FT4, TSH ####[place] [address] [place], [place] [phone] HbA1c (Bld) [Mass fraction] 7.0 4.3-5.6 % High [facility] (55976) Comment: Result Comment: [place] Jessica betes Association guidelines indicate that patients with HgbA1c in the range 5.7-6.4% are at increased risk for development of diabetes, and intervention by lifestyle modification may be beneficial. HgbA1c greater o r equal to 6.5% is considered diagnostic of diabetes. Performed By: #### CBC, LIPB , B12, HBA1C, CMP, FT4, TSH ####[place] [address] [place] [phone] free t4 on Free T4 [Mass/Vol] 1.1 0.9-1.7 ng/dL Normal 05-07-2019 [facility] (81703) Comment: Performed By: #### CBC, LIPB , B12, HBA1C, CMP, FT4, TSH ####[place] [address] [place] [phone] comp metabolic panel on 2019-05-07 Albumin [Mass/Vol] 4.3 3.9-4.9 g/dL Normal 05-07-2019 [facility] (03681) Comment: Performed By: #### CBC, LIPB , B12, HBA1C, CMP, FT4, TSH ####[place] [address] [place] [phone] ALP [Catalytic activity/Vol] 84 34-123 U/L Normal 1 07-07-2018 [facility] (46622) Comment: Performed By: #### CBC, LIPB , B12, HBA1C, CMP, FT4, TSH ####[place] [address] [place], [place] [phone] ALT [Catalytic activity/Vol] 13 7-38 U/L Normal 1 07-07-2018 [facility] (53744) Comment: Performed By: #### CBC, LIPB , B12, HBA1C, CMP, FT4, TSH ####[place] [address] [place], [place] [phone] Anion gap [Moles/Vol] 11 9-18 mmol/L Normal 05-07-20 [facility] (38856) Comment: Performed By: #### CBC, LIPB , B12, HBA1C, CMP, FT4, TSH ####[place] [address] [place], [place] [phone] AST [Catalytic activity/Vol] 19 13-35 U/L Normal 1 07-07-2018 [facility] (97792) Comment: Performed By: #### CBC, LIPB , B12, HBA1C, CMP, FT4, TSH ####[facility] [place], [place] [phone] Bilirubin [Mass/Vol] 0.2 0.2-1.3 mg/dL Normal 9 [facility] (24468) Comment: Performed By: #### CBC, LIPB , B12, HBA1C, CMP, FT4, TSH ####[place] [address] [place], [place] [phone] Calcium [Mass/Vol] 9.7 8.5-10.2 mg/dL Normal 05-07-2019 [facility] (08982) Comment: Performed By: #### CBC, LIPB , B12, HBA1C, CMP, FT4, TSH ####[place] [address] [place], [place] [phone] Chloride [Moles/Vol] 98 97-105 mmol/L Normal 9 [facility] (88471) Comment: Performed By: #### CBC, LIPB , B12, HBA1C, CMP, FT4, TSH ####[place] [address] [place], [place] [phone] CO2 [Moles/Vol] 27 22-30 mmol/L Normal 05-07-2019 [facility] (10760) Comment: Performed By: #### CBC, LIPB , B12, HBA1C, CMP, FT4, TSH ####[place] [address] [place], [place] [phone] Creatinine [Mass/Vol] 1.19 0.58-0.96 mg/dL High 05-07-20 [facility] (12596) Comment: Performed By: #### CBC, LIPB , B12, HBA1C, CMP, FT4, TSH ####[place] [address] [place], [place] [phone] eGFR- Amer. 53 Normal 05-07-2019 [facility] (72934) Comment: Performed By: #### CBC, LIPB , B12, HBA1C, CMP, FT4, TSH ####[facility] [address] [place], [place] [phone] GFR/1.73 sq M predicted among 44 . Normal 05-07-2019 [facility] non-blacks MDRD (S/P/Bld) [Vol (82511) rate/Area] Comment: Result Comment: eGFR (Estima rod [...] LIPB , B12, HBA1C, CMP, FT4, TSH ####[facility] [address] [place], [place] [phone] Glucose [Mass/Vol] 89 74-99 mg/dL Normal 05-07-2019 [facility] (64802) Comment: Result Comment: The [place] Diabetes Association (ADA) provides guidance for cutoff [...] for diagnosis of diabetes. Reference: Standards of [facility] Care in Diabetes 2016, [place] Diabetes Association. Diabetes Care. 2016.39(Suppl 1). Performed By: #### CBC, LIPB , B12, HBA1C, CMP, FT4, TSH ####[place] [address] [place], [place] [phone] Potassium [Moles/Vol] 5.9 3.7-5.1 mmol/L High 05-07-20 [facility] (88035) Comment: Performed By: #### CBC, LIPB , B12, HBA1C, CMP, FT4, TSH ####[address] [place], [place] [phone] Protein [Mass/Vol] 6.9 6.3-8.0 g/dL Normal 05-07-2019 [facility] (68909) Comment: Performed By: #### CBC, LIPB , B12, HBA1C, CMP, FT4, TSH ####[address] [phone] Sodium [Moles/Vol] 136 136-144 mmol/L Normal 05-07-2019 [facility] (01668) Comment: Performed By: #### CBC, LIPB , B12, HBA1C, CMP, FT4, TSH ####[address] [place], [place] [phone] Urea nitrogen [Mass/Vol] 22 7-21 mg/dL High 05-07 [facility] (21308) Comment: Performed By: #### CBC, LIPB , B12, HBA1C, CMP, FT4, TSH ####[address] [place], [place] [phone] cnov on 2019-05-07 CNOV Office Visit (INTMWS) Normal 05-07-[address] [place] [address] [facility] SONNY DENNIS ([id number]) 1940 [facility] Date Time Provider Department ([id number]) 05/07/19 9:40 AM JAKE FISH (JANNY) INTMWS During your visit today, we recorded the following informati on about you: Pulse Respiration Blood pressure Weight 92/minute 16/minute 106/60 54 kg Jake Fish APRN.CNS 05/07/2019 10:31 AM Signed This note was created using NoteWriter. Subjective Sonny Dennis is a 79 year old female. HPI She is s/p lumbar fusion 01/05/[address] Florencio Ibrahim [facility], feels she is doing better following [...] Abs Lymph 1.00 - 4.00 k/uL 1.60 Chilton% % 10.8 Abs Chilton <0.87 k/uL 0.73 Eosin% % 2.5 Abs [...] by m outh daily before breakfast. ID# RXZRZS1E glimepiride (AMARYL) 1 mg tablet Take 1 tablet b y mouth daily with breakfast. ID# TFJLDX1M furosemide (LASIX) 20 mg tablet Take 1 tablet by mouth once daily. as needed for leg swelling. PNV Cmb#25-Rjqj-Mpfgk Acid ( COM PLETE) 14 mg iron- 400 mcg tab Take by mouth. Pt is taking 2 tablets daily cyanocobalamin 1,000 mcg/mL soln 1 mL IM every 3 weeks buPROPion XL (WELLBUTRIN XL) 150 mg 24 hr tablet Take 1 tablet by mouth once daily. ID# UESBVS5P atorvastatin (LIPITOR) 20 mg tablet Take 1 tablet by mouth o nce daily. gabapentin (NEURONTIN) 300 mg capsule Ta ke 2 capsules by mouth twice daily for 180 days. ID# NBNGRU1R metFORMIN (GLUCOPHAGE) 850 mg tablet Take 1 tablet by mouth twice daily with meals. ID# NPLSDI9T cyclobenzaprine (FLEXERIL) 10 mg tablet Take 1 tablet by angela th daily at bedtime. ID# TWWRWJ1S lisinopril (ZESTRIL, PRINIVI L) 10 mg tablet Take 1 tablet by mouth twice daily. As directed ID# MAHLPU8O mirtazapine (REMERON) 15 mg tablet Take 1 tablet by mouth daily at bedtime. ID# YTRMOJ7L Blood-Glucose Meter monitoring kit Glucose Meter of [...] 1 tablet by mouth once daily. ID# SUKDIJ6L BD LUER-MARLIN SYRINGE 3 mL 23 x [...] or ot her cardiac complaints Jake Fish, NBA.FINANCIAL AID MANAGER Referring Provider: SELF [200] Allergies As of [...] Nonrheumatic aortic valve stenosis [I35.0] Order(s):HGB A1C [FFXSF5V] Order #: [id number] FUTURE COMP METABOLIC PANEL [SQCMP] Order #: [id number] FUTURE CBC [SQCBC] Order #: [id number] FUTURE LIPID PANEL BASIC [SQLIPB] Order #: [id number] FUTURE TSH BLD [SQTSH] Order #: [id number] FUTURE T4 FREE/FREE THYROX [SQFT4] Order #: [id number] FUTURE ALBUMIN/CREAT RATIO RND UR [SQUACR] Order #: [id number] VITAMIN B12 BLOOD [SQB12] Order #: [id number] FUTURE Prescriptions as of 05/07/2019 Sig: CALCIUM [...] Cervicalgia [M54.2] INVALID FOR* Other physical therapy [OZC3209] INVALID FOR*01/06/2016 Other specified disorder of bladder [...] 2019-05-07 Absolute nRBC <0.01 <0.01 Normal 05-07-2019 [facility] (14339) Comment: Performed By: #### CBC, LIPB , B12, HBA1C, CMP, FT4, TSH ####[place] [address] [place] [phone] Erythrocyte distribution 14.4 11.5-15.0 % Normal 05-07 [facility] width (RBC) [Ratio] [place] (86635) Comment: Performed By: #### CBC, LIPB , B12, HBA1C, CMP, FT4, TSH ####[place] [address] [place] [phone] Hematocrit (Bld) [Volume 35.3 36.0-46.0 % Low 05-07 [facility] fraction] (12885) Comment: Performed By: #### CBC, LIPB , B12, HBA1C, CMP, FT4, TSH ####[place] [address] [place], [place] [phone] Hemoglobin (Bld) 10.7 11.5-15.5 g/dL Low 05-07-2019 [facility] [Mass/Vol] [place] (11554) Comment: Performed By: #### CBC, LIPB , B12, HBA1C, CMP, FT4, TSH ####[place] [address] [place], [place] [phone] MCH (RBC) [Entitic mass] 30.0 26.0-34.0 pG Normal 05-07 [facility] (34758) Comment: Performed By: #### CBC, LIPB , B12, HBA1C, CMP, FT4, TSH ####[place] [address] [place], [place] [phone] MCHC (RBC) [Mass/Vol] 30.3 30.5-36.0 g/dL Low 05-07-20 19 [facility] (03714) Comment: Performed By: #### CBC, LIPB , B12, HBA1C, CMP, FT4, TSH ####[place] [address] [place], [place] [phone] MCV (RBC) [Entitic vol] 98.9 80.0-100.0 fL Normal 05-07 [facility] (70401) Comment: Performed By: #### CBC, LIPB , B12, HBA1C, CMP, FT4, TSH ####[place] [address] [place], [place] [phone] Platelet mean volume 10.7 9.0-12.7 fL Normal 9 [facility] (d) [Entitic vol] [place] (65686) Comment: Performed By: #### CBC, LIPB , B12, HBA1C, CMP, FT4, TSH ####[place] [address] [place], [place] [phone] Platelets (d) [#/Vol] 342 150-400 k/uL Normal 2018 [facility] (58598) Comment: Performed By: #### CBC, LIPB , B12, HBA1C, CMP, FT4, TSH ####[place] [address] [place], [place] [phone] RBC (Bld) [#/Vol] 3.57 3.90-5.20 m/uL Low 05-07-2019 C [facility] (66274) Comment: Performed By: #### CBC, LIPB , B12, HBA1C, CMP, FT4, TSH ####[place] [address] [place], [place] [phone] WBC (Bld) [#/Vol] 5.76 3.70-11.00 k/uL Normal 05-07-2019 [facility] ([id number]) Comment: Performed By: #### CBC, LIPB , B12, HBA1C, CMP, FT4, TSH ####[place] [phone] toxicology screen,ur on 2019-04-24 Amphetamines, Urine Negative Negative Normal 04-24-2019 [facility] ([id number]) Comment: Result Comment: Cutoff thres hold at 1000 ng/mL. Performed By: #### UTOX2 ### #[place] [phone]- [phone] Barbiturates, Urine Negative Negative Normal 04-24-2019 [facility] ([id number]) Comment: Result Comment: Cutoff thres hold at 200 ng/mL. Performed By: #### UTOX2 ### #[place] [phone]- [phone] Benzodiazepines, Ur Negative Negative Normal 04-24-2019 [facility] (36022) Comment: Result Comment: Cutoff thres hold at 200 ng/mL. Performed By: #### UTOX2 ### #[place] [address] [place] [phone] Cannabinoids, Urine Negative Negative Normal 04-24-2019 [facility] ([id number]) Comment: Result Comment: Cutoff thres hold at 50 ng/mL. Performed By: #### UTOX2 ### #[place] [phone]- [phone] Cocaine, Urine Negative Negative Normal 04-24-2019 [facility] (65431) Comment: Result Comment: Cutoff thres hold at 300 ng/mL. Performed By: #### UTOX2 ### #[place] [address] [place] [phone]- [phone] Ethanol, Urine <11 <11 Normal 04-24-2019 [facility] (35437) Comment: Performed By: #### UTOX2 ### #[place] [address] [address], [place] [id number]- [phone] Opiates, Urine Negative Negative Normal 04-24-2019 [facility] ([id number]) Comment: Result Comment: Cutoff thres hold at 300 ng/mL. Performed By: #### UTOX2 ### #[facility] [place], [place] [id number]- [phone] Oxycodone, Urine Negative Negative Normal 04-24-2019 [facility] (61278) Comment: Result Comment: Cutoff thres hold at 100 ng/mL. Comment: Immunoassay screen only. [employer] ss reactivity with other substances can occur [...] on the same specimen through Client Services ([phone]) if contacted within 48 hours of initial testing. [1]Substance Abuse and [facility] Administration (2012). Clinical Drug Testing in Primary Care Technical Assistance Publication Series 32. Department of Health and Human Services, [place], p.10. Performed By: #### UTOX2 ### #[facility] [place], [place] [phone] Phencyclidine, Urine Negative Negative Normal 9 [facility] (11528) Comment: Result Comment: Cutoff thres hold at 25 ng/mL. Performed By: #### UTOX2 ### #[facility] [place], [place] [phone]- [phone] quant pain panel, ur on 2019-04-24 6-Acetylmorphine, Ur <5 <5 Normal 9 [facility] (62696) Comment: Result Comment: 6-MAMADOU (6-mon oacetylmorphine, also known as 6-acetylmorphine) is a unique metabolite of he roin. Presence of 6-MAMADOU indicates use of heroin. 6-MAMADOU is further metabolized to morphine and absence of 6-MAMADOU does not rule out the use of heroin. Performed By: #### UQNTPP ## ##[place] [phone]- [phone] Amphetamine, Urine <5 <5 Normal 04-24-2019 [facility] (18126) Comment: Performed By: #### UQNTPP ## ##[place] [phone]- [phone] Benzoylecognine, Ur <24 <24 Normal 04-24-2019 [facility] (02353) Comment: Result Comment: Benzoylecogn ine is a metabolite of cocaine. Performed By: #### UQNTPP ## ##[place] [phone]- [phone] Buprenorphine, Ur <20 <20 Normal 04-24-2019 [facility] (26822) Comment: Performed By: #### UQNTPP ## ##[place] [phone]- [phone] Cannabinoid, Urine <16 <16 Normal 04-24-2019 [facility] (31251) Comment: Result Comment: Tetrahydroca nnabinol carboxylic acid (THCA) is a metabolite of zpbbf-0-qbghbnqjaumluvuqs nol which is the main active component of marijuana. Performed By: #### UQNTPP ## ##[place] [phone]- [phone] CHROMATE,URINE <10 <50 Normal 04-24-2019 [facility] (69108) Comment: Performed By: #### UQNTPP ## ##[place] [phone]- [phone] Codeine, Urine <11 <11 Normal 04-24-2019 [facility] (25937) Comment: Performed By: #### UQNTPP ## ##[place] [phone]- [phone] Creatinine, Urine 71.3 42.2-237.9 mg/dL Normal 04-24-2019 [facility] (20313) Comment: Performed By: #### UQNTPP ## ##[place] [phone]- [phone] Desmethyltramadol,Ur <20 <20 Normal 9 [facility] (56376) Comment: Result Comment: Desmethyltra madol is a metabolite of tramadol. Performed By: #### UQNTPP ## ##[place] [id number] [phone] Dihydrocodeine, Ur 13 <5 ng/mL High 04-24-2019 [facility] (16594) Comment: Result Comment: The presence of dihydrocodeine may arise from dihydrocodeine containing drugs or from the metabolism of hydrocodone. Performed By: #### UQNTPP ## ##[place] [phone] EDDP, Urine <6 <6 Normal 04-24-2019 [facility] (73916) Comment: Result Comment: EDDP is a me tabolite of methadone. Performed By: #### UQNTPP ## ##[place] [phone]- [phone] Fentanyl, Urine <6 <6 Normal 04-24-2019 [facility] (69448) Comment: Performed By: #### UQNTPP ## ##[place] [phone]- [phone] Hydrocodone, Urine 16 <8 ng/mL High 04-24-2019 [facility] (47798) Comment: Result Comment: Hydrocodone may arise from hydrocodone containing drugs or by metabolism of dihydrocode ine. Hydrocodone is also a minor metabolite of codeine, and may be detected with elevated levels of codeine. Hydrocodone is metabolized to hydromorphone and dihydrocodeine. Performed By: #### UQNTPP ## ##[address] [phone] Hydromorphone, Ur 21 <5 ng/mL High 04-24-2019 [facility] (94925) Comment: Result Comment: Hydromorphon e may arise from hydromorphone containing drugs or by metabolism of morphine and hydrocodone. Performed By: #### UQNTPP ## ##[place] [phone]- [phone] Methadone, Urine <16 <16 Normal 04-24-2019 [facility] (71244) Comment: Performed By: #### UQNTPP ## ##[place] [phone]- [phone] Methamphetamine, Ur <8 <8 Normal 04-24-2019 [facility] (70005) Comment: Performed By: #### UQNTPP ## ##[place] [phone]- [phone] Morphine, Urine <10 <10 Normal 04-24-2019 [facility] (69116) Comment: Result Comment: Morphine is a metabolite of codeine and heroin. Performed By: #### UQNTPP ## ##[address] [phone] NITRITES,URINE <50 <51 Normal 04-24-2019 [facility] (79243) Comment: Performed By: #### UQNTPP ## ##[address] [id number]- [phone] Norbuprenorphine, Ur <20 <20 Normal 9 [facility] (90565) Comment: Result Comment: Norbuprenorp soumya is the primary active metabolite of buprenorphine. Performed By: #### UQNTPP ## ##[place] [address] [address], [place] [id number]- [phone] Norfentanyl, Urine <6 <6 Normal 04-24-2019 [facility] (35055) Comment: Result Comment: Norfentanyl is a metabolite of fentanyl. Performed By: #### UQNTPP ## ##[address] [place], [place] [id number]- [phone] Note This test is for Medical use Normal 1 [facility] only. (08143) Comment: Result Comment: This test wa s developed and its performance characteristics determined by [facility]'s [facility] Pathology and Laboratory Medicine [place] ([facility]). It has not been cleared or a pproved by the FDA. [facility] is regulated under CLIA as qualified to perform high complexity testing. This test is used for clinic al purposes. It should not be regarded as investigational or for research. Performed By: #### UQNTPP ## ##[address] [place], [place] [phone]- [phone] Oxidants, Urine <38 <200 Normal 04-24-2019 [facility] (23240) Comment: Performed By: #### UQNTPP ## ##[address] [id number]- [phone] Oxycodone, Urine <10 <10 Normal 04-24-2019 [facility] (15288) Comment: Performed By: #### UQNTPP ## ##[place] [address] [address], [place] [id number]- [phone] Oxymorphone, Urine <5 <5 Normal 04-24-2019 [facility] (40800) Comment: Result Comment: Oxymorphone is a metabolite of oxycodone. Performed By: #### UQNTPP ## ##[address] [id number]- [phone] pH (U) 5.4 4.5-8.0 [pH] Normal 04-24-2019 [facility] (78418) Comment: Performed By: #### UQNTPP ## ##[address] [id number]- [phone] QUALITY,URINE Specimen quality results Normal 1 [facility] within acceptable limits. [place] (67489) Comment: Performed By: #### UQNTPP ## ##[place] [phone] Specific [place],Ur 1.012 1.002-1.030 Normal 04-24-20 [facility] (35726) Comment: Performed By: #### UQNTPP ## ##[address] [id number]- [phone] Tramadol, Urine <25 <25 Normal 04-24-2019 [facility] (45077) Comment: Performed By: #### UQNTPP ## ##[address] [id number]- [phone] obsolete on 2019-03 OBSOLETE Refill (INTMWS) Normal 04-23-2019 [facility] SONNY DENNIS ([id number]) 1940 [facility] Date Time Provider Department ([id number]) 04/23/19 MATI MONTENEGRO INTMWS During your visit [...] applicable Please advise. Thank you. LUDIN Hanks APRN.FINANCIAL AID MANAGER 04/23/2019 11:26 AM Signed Check to see if neck pain is improved pe r Dr. Johnston's note 04/16/2019, let her know if not. PDMP website checked and validated. All prescrip tions have been APPROPRIATELY filled. No suspicious activity was identified. 04/23/2019 by Jake Fish APRN.FINANCIAL AID MANAGER due for urine tox screen if chronic use. Rx filed, please process Magalijanay Choudhury LPN 04/23/2019 3:38 PM Signed No answer. 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 Author Type: Physician Type: Progress [...] SURGICAL HISTORY OF 1997 Right elbow - [facility] - PAST SURGICAL HISTORY OF Left 01-27-16 [...] furosemide (LASIX) 20 mg tablet - PNV Cmb#73-Oixq-Przpu Acid ( COMPLETE) 14 mg iron- 400 [...] 2019-04-16 CNOV Office Visit (INTMWS) Normal 04-16-20 [place] [facility] SONNY DENNIS ([id number]) 1940 [facility] Date Time Provider Department ([id number]) 04/16/19 9:20 AM PEREZ JOHNSTON INTMWS During your visit today, we recorded the following informati on about you: Pulse Respiration Blood pressure Weight 96/minute 12/minute 128/60 53.5 kg Height 1.562 m PEREZ JOHNSOTN MD 04/16/2019 10:33 AM Signed Reason for [...] Laterality Date - COLONOSCOP W/ OR W/O [facility] SPEC 01/29 Colonoscopy - COLONOSCOP W/ OR W/O [facility] SPEC 01/29, 04/05/06 - COLONOSCOPY W/BX 10/29/08 Diverticulosis - COLONOSCOPY W/BX 07/18/11 Repeat in - EGD W/O [facility] SPECIMEN W/BX 10/02, 04/05/06 - EGD W/O [facility] SPECIMEN W/BX 10/29/08 Patent gastrojejunostomy - EGD [...] furosemide (LASIX) 20 mg tablet - PNV Cmb#47-Mpmu-Jizic Acid ( COMPLETE) 14 mg iron- 400 [...] % ointment - Lancets (ACCU-CHEK MULTICLIX LANCET) [facility] lancets Review of Systems CONSTITUTIONAL: No fevers, [...] Date Reviewed: 04/16/2019 Reviewed by: Jessie Laguna NURSE OFFICE - Fully Assessed Reason for Visit: Established [...] Cervicalgia [M54.2] INVALID FOR* Other physical therapy [[id number]] INVALID FOR*01/06/2016 Other specified disorder of bladder [...] hmspatientid on 2019-01-29 OOP 01-29-2019 - 01-29-2019 [facility] ([id number]) Vital Signs Vital Sign Description Value / Unit Date Location The following section is limited to 5 en tries per type and includes entries from the following time range: 20190129 - [id number] 0. NEGATED: Highlighted 23.7 kg/m2 02-18-2020 - 02-18-2020 [facility] rowBMI (Body Mass Index) [facility] (51781) NEGATED: Highlighted 23.7 kg/m2 12-31-2019 - 12-31-2019 [facility] rowBMI (Body Mass Index) [facility] (74226) NEGATED: Highlighted 22.21 kg/m2 06-30-2019 - 06-30-2019 [facility] rowBMI (Body Mass Index) [facility] (83865) NEGATED: Highlighted 23.68 kg/m2 01-29-2019 - 01-29-2019 [facility] rowBMI (Body Mass Index) [facility] (80502) NEGATED: Highlighted 57 kg 02-18-2020 - 02-18-2020 [facility] rowBody weight [facility] (58737) NEGATED: Highlighted 56.7 kg 02-18-2020 - 02-18-2020 [facility] rowBody weight [facility] (89597) NEGATED: Highlighted 56.7 kg 12-31-2019 - 12-31-2019 [facility] rowBody weight [facility] (54104) NEGATED: Highlighted 57 kg 12-31-2019 - 12-31-2019 [facility] rowBody weight [facility] (50253) NEGATED: Highlighted 54.89 kg 06-30-2019 - 06-30-2019 [facility] rowBody weight [facility] (00876) NEGATED: Highlighted 74 mm[Hg] 02-18-2020 - 02-18-2020 [facility] rowBP Diastolic [facility] (77599) NEGATED: Highlighted 62 mm[Hg] 06-30-2019 - 06-30-2019 [facility] rowBP Diastolic [facility] (82572) NEGATED: Highlighted 78 mm[Hg] 01-29-2019 - 01-29-2019 [facility] rowBP Diastolic [facility] (85925) NEGATED: Highlighted 122 mm[Hg] 02-18-2020 - 02-18-2020 [facility] rowBP Systolic [facility] (16545) NEGATED: Highlighted 105 mm[Hg] 06-30-2019 - 06-30-2019 [facility] rowBP Systolic [facility] (38964) NEGATED: Highlighted 114 mm[Hg] 01-29-2019 - 01-29-2019 [facility] rowBP Systolic [facility] (26807) NEGATED: Highlighted 2+ 06-30-2019 - 06-30-2019 [facility] rowHeart rate [facility] (42994) NEGATED: Highlighted 154.94 cm 02-18-2020 - 02-18-2020 [facility] rowHeight [facility] (46645) NEGATED: Highlighted 155 cm 02-18-2020 - 02-18-2020 [facility] rowHeight [facility] (21027) NEGATED: Highlighted 155 cm 12-31-2019 - 12-31-2019 [facility] rowHeight [facility] (61984) NEGATED: Highlighted 154.94 cm 12-31-2019 - 12-31-2019 [facility] rowHeight [facility] (38996) NEGATED: Highlighted 157.48 cm 06-30-2019 - 06-30-2019 [facility] rowHeight [facility] (04027) NEGATED: Highlighted 102 /min 02-18-2020 - 02-18-2020 [facility] rowPulse (Heart Rate) [facility] (86354) NEGATED: Highlighted 92 /min 06-30-2019 - 06-30-2019 [facility] rowPulse (Heart Rate) [facility] (10953) NEGATED: Highlighted 81 /min 01-29-2019 - 01-29-2019 [facility] rowPulse (Heart Rate) [facility] (91283) Encounters Date Type Reason Provider Location 03-25-2020 - Patient encounter External Provider [facility] 03-25-2020 procedure 02-18-2020 - Patient encounter [facility] 02-18-2020 procedure [facility] ([id number]) 12-31-2019 - Patient encounter [facility]obeida Kathy [facility] 12-31-2019 procedure [facility]CH-[facility] (82168) 06-30-2019 - Patient encounter [facility] 07-04-2019 procedure [facility] - [facility] (26827) 01-29-2019 - Patient encounter [facility]obeida Kathy [facility] 01-29-2019 procedure [facility] ([id number]) 01-29-2019 - Pt evaluation Sobeida Velazquez [facility] 01-29-2019 [facility] (74099) 04-01-2020 - Refill Chronic low back [facility] 04-01-2020 pain [place] Comment: Refill Request 03-31-2020 - 03-31-2020 Refill [facility] [place] Comment: Refill Request 03-15-2020 - 03-15-2020 Refill [facility] [facility] [place] Comment: Refill Request 03-25-2020 Results Only External External-Non[facility] Provider 02-24-2020 - Telephone Chronic low [facility] [place] [facility] 02-24-2020 encounter back pain [place] Comment: Medication Question Procedures Procedure Name Date Provider Location EXTERNAL IMAGING 03-25-2020 External Provider [facility] ([id number]) NEGATED: Highlighted 02-18-2020 - [facility] rowDocumentation of current 02-18-2020 [facility] (47591) Blood pressure within normal 02-18-2020 - Sobeida Velazquez Clinic parameters - no follow-up 02-18-2020 [facility] - required [facility] (78378) Documentation of current 02-18-2020 - [facility]inez [facility] medications 02-18-2020 [facility] - [facility] (99744) Pain assessment documented 02-18-2020 - [facility]ios [facility] as positive - follow-up 02-18-2020 [facility] - documented [facility] (11299) Tobacco non-user 02-18-2020 - [facility] 02-18-2020 [facility] - [facility] (12273) NEGATED: Highlighted 12-31-2019 - [facility] rowDocumentation of current 12-31-2019 [facility] (55071) Blood pressure screening not 12-31-2019 - [facility] Ch[facility] performed - reason not given 12-31-2019 [facility] - [facility] (63295) BMI documented within normal 12-31-2019 - [facility]ida Ch[facility] parameters - no follow-up 12-31-2019 [facility] - plan is required [facility] (34690) Documentation of current 12-31-2019 - [facility] [place] [facility] (51678) Pain assessment documented 12-31-2019 - [facility]obeida Chavez [facility] as positive - follow-up 12-31-2019 [facility] Center - documented [facility] (00411) Tobacco non-user 12-31-2019 - [facility] Chavez [facility] 12-31-2019 [facility] - [facility] (24855) NEGATED: Highlighted 06-30-2019 - [facility] rowDocumentation of current 06-30-2019 [facility] (63399) Blood pressure within normal 06-30-2019 - Armin Ibrahim DO [facility] parameters - no follow-up 07-04-2019 [facility] - required [facility] (79952) Documentation of current 06-30-2019 - Armin Reynoldsa l [facility] medications 07-04-2019 [facility] (00626) Fall plan of care docd 06-30-2019 - Armin Ibrahim DO [facility] 07-04-2019 [facility] (93832) Fall risk assessment docd 06-30-2019 - [facility]in Ibrahim DO [facility] 07-04-[facility] (36621) Pain assessment documented 06-30-2019 - Armin Ibrahim DO [facility] as positive - follow-up 07-04-2019 [facility] - documented [facility] (90698) Ptfalls assess-docd ge2>/yr 06-30-2019 - Armin Ibrahim DO [facility] 07-04-[facility] (27274) Tobacco non-user 06-30-2019 - Armin Lamar Patrice HAGAN [facility] 07-04-[facility] (87804) NEGATED: Highlighted 01-29-2019 - [facility] Cli [facility] rowDocumentation of current 01-29-2019 [facility] (55528) Blood pressure within normal 01-29-2019 - Sobeida Chavez [facility] parameters - no follow-up 01-29-2019 [facility] Center - required [facility] (30487) BMI documented within normal 01-29-2019 - Sobeida Velazquez [facility] parameters - no follow-up 01-29-2019 [facility] Center - plan is required [facility] (63236) Documentation of current 01-29-2019 - [facility]obeida Graves [facility]-29[facility] (66143) Pain assessment documented 01-29-2019 - [facility] Turcios [facility] as positive - follow-up 01-29-2019 [facility] Center - documented [facility] (77923) Tobacco non-user 01-29-2019 - [facility]29[facility] (02529) Colonoscopy 05-12-2018 - [facility] 05-12-2018 ([id number]) Plan of Treatment Plan Description Date Location COLONOSCOPY COLONOSCOPY 05-12-2028 - [facility] 05-12-2028 ([id number]) DTAP,TDAP,TD (3 - Td) DTAP,TDAP,TD (3 - Td) 01-08-2028 - [facility] 01-08-2028 ([id number]) ANNUAL PCP TEAM CHRONIC ANNUAL PCP TEAM CHRONIC 02-04-2021 - [facility] DISEASE VISIT DISEASE VISIT 02-04-2021 ([id number]) BP CONTROLLED (<130/80) BP CONTROLLED (<130/80) 02-04-2021 - [facility] 02-04-2021 (52990) LDL CHOLESTEROL LDL CHOLESTEROL 12-07-2020 - [facility] 12-07-2020 ([id number]) DILATED RETINAL EXAM DILATED RETINAL EXAM 11-09-2020 - [facility] 11-09-2020 ([id number]) HBA1C HBA1C 06-08-2020 - [facility] 06-08-2020 ([id number]) INFLUENZA (#1) INFLUENZA (#1) 2020 - [facility] 03-01-2020 ([id number]) Appointment Appointment 02-18-2020 - [facility] 02-18-[address] [facility] (20451) XR LUMBAR 2-3 VWS XR LUMBAR 2-3 VWS 02-18-2020 - [facility] AP/LAT AP/LAT 02-18-[address] [facility] (52880) Appointment Appointment 01-18-2020 - [facility] 01-18-[address] [facility] (55911) Appointment Appointment 12-31-2019 - [facility] 12-31-2019 [facility] (35474) MRI lumbar with and MRI lumbar with and 12-31-2019 - [facility] without contrast without contrast 12-31-2019 [facility] (00984) XR LUMBAR 4VWS FLEX/EX XR LUMBAR 4VWS FLEX/EX 12-31-2019 - [facility] 12-31-[address] [facility] (95648) DIABETIC FOOT EXAM DIABETIC FOOT EXAM 12-13-2019 - [facility] 12-13-2019 ([id number]) XR LUMBAR 4VWS FLEX/EX XR LUMBAR 4VWS FLEX/EX 06-30-2019 - [facility] 06-30-[address] [facility] (06960) Appointment Appointment 03-31-2019 - [facility] ([id number]) Appointment no information 01-29-2019 - [facility] ([id number]) XR LUMBAR 2-3 VWS XR LUMBAR 2-3 VWS 01-29-2019 [facility] AP/LAT AP/LAT 01-29-[facility] ([id number]) URINE URINE 08-19-2018 - [facility] ALBUMIN:CREATININE ALBUMIN:CREATININE 08-19-2018 ([id number]) RATIO RATIO ADVANCE DIRECTIVE ADVANCE DIRECTIVE 11-05-2013 - [facility] inic DISCUSSION DISCUSSION 11-05-2013 ([id number]) Patient education \cps-sql1\CPS_PtEducati [facility] on\CDC_FALL_PREVENTION. [facility] - pdf [facility] ([id number]) no information [facility] ([id number]) Immunizations Vaccine Notes Status Date Location DT(PEDIATRIC) diphtheria and tetanus (completed) 03-21-1999 - [facility] toxoids, adsorbed for 03-21-1999 (22016 ) pediatric use Influenza Vaccine, influenza virus (completed) 05-21-2013 - [facility] Split-Non Spec vaccine, unspecified 05-21-2013 (4419 5) formulation Influenza Vaccine, influenza virus (completed) 03-26-2012 - [facility] Split-Non Spec vaccine, unspecified 03-26-2012 (4419 5) formulation Influenza Vaccine, influenza virus (completed) 03-29-2010 - [facility] Split-Non Spec vaccine, unspecified 03-29-2010 (4419 5) formulation Influenza Vaccine, influenza virus (completed) 05-07-2005 - [facility] Split-Non Spec vaccine, unspecified 05-07-2005 (4419 5) formulation Influenza Seasonal - influenza, high dose (completed) 04-27-2019 - [facility] High Dose - Age 65+ seasonal, 04-27-2019 ([id number]) preservative-free Influenza Seasonal - influenza, high dose (completed) 05-18-2015 - [facility] High Dose - Age 65+ seasonal, 05-18-2015 ([id number]) preservative-free Influenza Seasonal - influenza, high dose (completed) 02-16-2014 - [facility] High Dose - Age 65+ seasonal, 02-16-2014 (56437) preservative-free Influenza Seasonal influenza, seasonal, (completed) 02-28-2018 - [facility] Inj Age 3+ injectable 02-28-2018 ([id number]) Pneumococcal-13 Vac pneumococcal conjugate (completed) 10-11-2016 - [facility] Conjugate vaccine, 13 valent 10-11-2016 ([id number]) Pneumovax pneumococcal (completed) 04-25-2012 - [facility] polysaccharide vaccine, 04-25-2012 (441 [id number]) 23 valent Pneumovax pneumococcal (completed) 05-18-2002 - [facility] polysaccharide vaccine, 05-18-2002 (441 [id number]) 23 valent Tdap (Age 7+) tetanus toxoid, reduced (completed) 01-07-2018 - [facility] diphtheria toxoid, and 01-07-2018 (4419 5) acellular pertussis vaccine, adsorbed Zoster Recombinant zoster vaccine (completed) 03-10-2018 - [facility] (Shingrix) recombinant 03-10-2018 ([id number]) Zoster Recombinant zoster vaccine (completed) 01-30-2018 - [facility] ([facility]) recombinant 01-30-2018 ([id number]) Payers Payer Name Policy Number Location [employer] MED[employer] [id number] [facility] ([phone]) The following information is from the original human readable contentNo Payer Records Found Social History Type Social History Date Location Description Assertion Unknown if ever smoked [id number] Tobacco smoking status Former smoker 02-05-2020 [facility] NHIS 02-05-2020 ([id number]) History of tobacco use Current smoker 01-05-1971 [facility] ([id number]) History of tobacco use Cigarette Smoker 01-05-1971 [facility] ([id number]) Cigarettes smoked 02-05-[address] 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 [facility] provides no warranty or guarantee of [...] or prosecute any alcohol or drug abuse patient.[facility] the event this information is protected by the Federal Confidentiality of Alcohol and Drug Abuse Patient Records regulations: The Federal rules restrict any use of the information to criminally investigate or prosecute any alcohol or drug abuse patient.[facility] the event this information is protected by the Federal Confidentiality of Alcohol and Drug Abuse Patient Records regulations: The Federal rules restrict any use of the information to criminally investigate or prosecute any alcohol or drug abuse patient.[facility] the event this information is protected by the Federal Confidentiality of Alcohol and Drug Abuse Patient Records regulations: The Federal rules restrict any use of the information to criminally investigate or prosecute any alcohol or drug abuse patient.[facility] the event this information is protected by the Federal Confidentiality of Alcohol and Drug Abuse Patient Records regulations: The Federal rules restrict any use of the information to criminally investigate or prosecute any alcohol or drug abuse patient.[facility] UNRECOGNIZED CONTENT PROVIDED BELOW FOR UNRECOGNIZED [...] MATI MONTENEGRO MD elephone Encounter - Jake FishTablet Technician) - 02/25/2020 3:14 PM EDTShe has an [...] use them. Pt states she took her [place] instead. Pt is now out of [place] and wants to know if PCP will write [place] to last until 03-04-2020. Pt states her surgeon will begin writing narcotics for her at that time. Please advise Arley Glover RN documented in this encounterTelephone Encounter - Chelsea Farris LPN - 03/15/2020 10:11 AM EDT Call from patient requesting refill. Pending Prescriptions Disp Refills LEVOTHYROXINE 50 MCG TABLET 30 tablet 5 Sig: Take 1 tablet by mouth daily before breakfast. ID# [id number] ROSARIO: No Patient last seen 02/05/2020 Chelsea [...] tablet by mouth daily before breakfast. ID# [id number] ROSARIO: No Please review and advise. Susan Naranjo Pss documented in this encounterTelephone Encounter - Denise Parker - 03/31/2020 10:00 AM EDT Patient has been identified by name and date of : Yes Pending Prescriptions Disp Refills GLIMEPIRIDE 1 MG TABLET 90 tablet 3 Sig: Take 1 tablet by mouth daily with breakfast. ID# [id number] ROSARIO: No RX INSTRUCTIONS: Patient aware RX [...] DATE CREATED AUTHOR AUTHOR'S ORGANIZATIO N 04/14/2020 [facility] Manny mcdaniel
== END 2019-12-09 19:09 | disposition home or self-care (01) ==
LOC: ED 18:22
PROVIDERS: Emergency Provider Emergency Medicine; PCP Internal Medicine
DX: M54.5 Low back pain (principal); G89.29 Other chronic pain; M25.562 Pain in left knee; M25.552 Pain in left hip; E11.9 Type 2 diabetes mellitus without complications; Z79.84 Long term (current) use of oral hypoglycemic drugs; Z79.899 Other long term (current) drug therapy; Z87.891 Personal history of nicotine dependence
CPT/HCPCS: 72100; 73502; 96372; 99282

== ENCOUNTER 2020-12-20 11:00 | Outpatient (RCR) | payer MEDICARE, SELFPAY ==
--- NOTE | 2020-11-10 11:05 | HP.PTEVAL_ITS ---
Patient's Visit Information SONNY DENNIS is a 80 year old F referred to Physical Therapy by CHRISTOS Hensley with a diagnosis of sacroilitis. Date of Evaluation: 11/10/20 Physical Therapist: DONNELL Arriola - Visit Plan Frequency: 2x /Week Duration: 6 Weeks Plan: 2X/ week for 6 weeks for Neutral spine core and pelvic stability, L hip and LE strengthening, L hip stretching, with HEP - Subjective Pt reports that her R hip and R leg are really paining her. He says that it is nerve damage. She had [address] Florencio Ibrahim and he thinks that it is nerve damage. She had some curvature due to old age. He did x-rays and everything is still in place. She no pain after last Aug surgery and she started with the R leg pain about 1 month ago. She did get a seated floor bike peddler and it started to hurt after starting that. She stopped that. She walks to the mailbox every day and the R hip does hurt her. She reports that she can sit and she can walk slow. She has pain when she walks fast or long distances. She takes gabapetin at night to help her sleep. She is generally good with laying down. Stairs: she is tired and has pain with going up and down the stairs and does use 1 railing and at times she will go 2 feet to the steps or recip. Sit to stand: able but has to use her arms. She has a step and then gets into bed. she does not roll over at night. No AD with gait. She did have a fall and caught her toe in the doorway a couple of weeks ago but she was ok. No N&T. - Pain back pain Pain Intensity (Out of 10): 8 R hip pain Pain Intensity (Out of 10): 8 Pain Intensity Range: 8 - Objective gait: Walks with no trunk rotation and increase veering especially to the R with gait. Trunk AROM: flex 25%, ext 50%, SB R 25% increase pain, SB L 50%, Rot B 50%. Pt is able to walk on her heels and toes with UE support. LE MMT: B hip flex 3-/4, B knee ext 4-/5, B knee flex 4-/5, B hip abd 3-/5, Able to do 1/4 normal ROM bridge. Pt is able to walk on heels and toes. Patella DTR's 1+/3 B. + SLR on the L for pain. Increase pain with DF on the L LE. Increase pain and slight tightness on the L with piriformis stretching - Goals Goal 1:: I HEP Goal Time Frame: 4-6 Weeks Goal 2:: Increase LE strength by 1/2 muscle grade (at the time of the eval:LE MMT: B hip flex 3-/4, B knee ext 4-/5, B knee flex 4-/5, B hip abd 3-/5, Able to do 1/4 normal ROM bridge. Pt is able to walk on heels and toes). Goal Time Frame: 4-6 Weeks Goal 3:: Pt to be able to get out of the chair X 5 without the use of her UE's Goal Time Frame: 4-6 Weeks Goal 4:: Pt will have 50% reduction in pain in her L hip per subjective Goal Time Frame: 4-6 Weeks - Rehabilitation Potential Rehabilitation Potential: Good - Anticipated Interventions Patient/Client Instruction: Educate patient on: Condition, Plan of Care For the Purpose of:: To decrease pain, To increase ROM, To improve nutrient delivery to tissue, To improve muscle performance and motor function, To improve ability to perform ADL's, To increase tolerance to activity/condition/position, To improve performance and independence with ADL's, To decrease level of supervision to perform tasks, To improve ability of physical actions for home/community/work/leisure, To improve gait and locomotor functions, To improve health of tissue, To decrease soft tissue restriction, To increase flexibi lity/ROM, To improve balance Therapeutic Exercise to Include: Strength training, Balance training, Postural training, Gait and locomotor training, Neuromotor development, Active ROM, Dynamic Lumbar Stabilization For the Purpose of:: To decrease pain, To increase ROM, To improve nutrient delivery to tissue, To improve muscle performance and motor function, To improve ability to perform ADL's, To increase tolerance to activity/condition/position, To improve performance and independence with ADL's, To improve gait and locomotor functions, To improve health of tissue, To decrease soft tissue restriction, To increase flexibility/ROM, To improve balance Manual Therapy Techniques to Include: Passive ROM, Soft tissue mobilization For the Purpose of:: To decrease pain, To increase ROM, To improve nutrient delivery to tissue, To improve muscle performance and motor function Thank you for the opportunity to evaluate your patient. For Medicare and Medicare HMO plans, please review the plan of care and approve it. It will need to be FAXED BACK to us at [phone] for Medicare purposes. For Medicare only, by signing this I certify the plan of care. Please let me know if there are questions or concerns regarding this plan of care. Physician Signature: Date:
== END 2020-12-20 19:00 | disposition home or self-care (01) ==
LOC: PT 11:00
PROVIDERS: PCP Internal Medicine; Referring Provider Nurse Practitioner; Visit Provider Nurse Practitioner
DX: M46.1 Sacroiliitis, not elsewhere classified (principal)
CPT/HCPCS: 97110; 97161

== ENCOUNTER → 2021-04-06 10:07 | Outpatient (CLI) | payer MEDICARE, SELFPAY ==
--- NOTE | 2021-04-06 10:13 | MRI_ITS ---
STUDY: MRI LUMBAR SPINE WITH AND WITHOUT CONTRAST REASON FOR EXAM: Female, 80 years old. S/P LUMBAR FUSION TECHNIQUE: Standardized fat and water weighted pulse sequences were obtained in the sagittal and axial planes. IV 9 cc Dotarem was administered for the contrast portion of the examination. COMPARISON: MRI lumbar spine without contrast 09/05/2018. FINDINGS: T10-T11, T11-T12 and T12-L1: (Sagittal only). Normal endplates. Normal disc height, hydration and morphology. No ventral extradural defect. Normal central canal and bilateral intervertebral neural foramina. Normal lumbar lordosis. There is no substantial scoliosis. Normal conus medullaris that terminates at the upper L1 vertebral body level. L1-2: Normal endplates. Normal disc height, hydration and morphology. Normal bilateral facet joints. Normal central canal and bilateral lateral recesses. Normal bilateral intervertebral neural foramina. L2-3: Normal endplates. Normal disc height. Mild bilateral degenerative facet arthropathy is unchanged. More capacious central canal and bilateral lateral recesses. Pedicular screws and rods causing signal distortion artifacts. Postsurgical absence of the lamina and spinous processes. L3-4: Normal endplates. Mild disc space height narrowing. Degenerative anterolisthesis of L3 on L4. Improvement of the severe central canal stenosis. Postsurgical absence of the lamina. Normal central canal and bilateral lateral recesses. Moderate stenosis of the left intervertebral neural foramen is partially obscured by pedicular screw at L3. Normal right intervertebral neural foramen. L4-5: Normal endplates. Normal disc height. More capacious central canal following decompression laminectomy. Normal bilateral lateral recesses. Normal bilateral intervertebral neural foramina. L5-S1: Normal endplates. Normal disc height. Small posterior bulging disc. Mild asymmetric degenerative facet arthropathy. Normal central canal and bilateral lateral recesses. Normal bilateral intervertebral neural foramina. Normal visualized sacral ala. Normal visualized paraspinous soft tissue structures. No abnormal enhancing lesions intradurally and extradurally. MRI/Spine Lumbar W/WO Contrast IMPRESSION: 1. No MRI evidence of lumbar extruded disc fragment. 2. Interval improvement of severe central canal stenosis at L3-L4 disc space level but there is new degenerative anterolisthesis of L3 on L4. 3. More capacious central canal at L2-L3 disc space level following decompression laminectomy with placement of pedicular screws and rods. 4. More capacious central canal at L4-L5 disc space level following posterior decompression laminectomy. 5. No abnormal enhancing lesions intradurally and extradurally. Electronically Signed: Miky Ramos MD at 16:16 EDT , Service support ,
[2021-04-06 10:36] LABS: CREATININE FINGERSTICK 0.6 mg/dL (0.55-1.02); EGFR FINGERSTICK > 60.0000 mL/min (>60)
== END ==
PROVIDERS: PCP Internal Medicine; Referring Provider Nurse Practitioner Acute Care; Visit Provider Nurse Practitioner Acute Care
DX: M48.061 Spinal stenosis, lumbar region without neurogenic claudication (principal); Z98.1 Arthrodesis status
CPT/HCPCS: 72158; A9575

== ENCOUNTER → 2021-05-05 14:25 | Outpatient (CLI) | payer MEDICARE, SELFPAY ==
--- NOTE | 2021-05-05 14:33 | RAD_ITS ---
STUDY: X-RAY - PELVIS REASON FOR EXAM: Female, 81 years old. Osteoarthritis of the right hip. TECHNIQUE: One view of the pelvis was obtained. COMPARISON: Pelvis and left hip, 12/09/2019 FINDINGS: There is a non-specific bowel gas pattern. Normal visualized soft tissue structures. There is evidence of fusion of the upper lumbar spine. There is evidence of L4 and L5 laminectomies. Normal bilateral iliac wings, sacroiliac joints and visualized sacrum. Normal visualized bilateral superior and inferior pubic rami. Normal pubic symphysis. Normal ischial tuberosities. Normal visualized right femoral head. Normal right acetabulum. There is mild articular joint space narrowing of the right hip. Normal visualized left femoral head. Normal left acetabulum. There is mild articular joint space narrowing of the left hip. RAD/Pelvis 1 or 2 Views IMPRESSION: 1. Mild degenerative changes of the bilateral hips. There is no major interval change. 2. Surgical changes of the lumbar spine. There is interval removal of the lower lumbar hardware seen on the earlier study. Electronically Signed: Kannan Mccann DO at 21:35 EDT Tel [phone], Service support ,
== END ==
PROVIDERS: PCP Internal Medicine; Referring Provider Nurse Practitioner Acute Care; Visit Provider Nurse Practitioner Acute Care
DX: M16.11 Unilateral primary osteoarthritis, right hip (principal)
CPT/HCPCS: 72170

== ENCOUNTER → 2021-06-08 09:01 | Outpatient (CLI) | payer MEDICARE, SELFPAY ==
--- NOTE | 2021-06-08 09:04 | RAD_ITS ---
CLINICAL HISTORY: Female, 81 years old. Right hip pain. PROCEDURE: ARTHROGRAM - RIGHT HIP. CONSENT: The procedure as well as the benefits and possible complications including infection and bleeding were explained to the patient. Informed consent was obtained. FLUOROSCOPY TIME (if supplied): (26 seconds) minutes/seconds Injection Information: 10 cc of dilute Doterem Number of images obtained: 1 TECHNIQUE: (All elements of maximal sterile barrier technique followed, including US elements as applicable) The patient was in the supine position. The overlying skin was prepped and draped in usual sterile fashion. Following local anesthetic application and under direct fluoroscopic guidance, a 22-gauge spinal needle was placed through the hip joint. 2 cc of ISOVUE 300 was injected for confirmation. Following this, 10 cc of dilute MRI contrast was injected. The patient tolerated the procedure well RAD/Arthrogram Hip w/ MRI IMPRESSION: Successful right hip arthrogram. MRI will follow. Electronically Signed: Terrell Jules MD at 12:01 EST , Service support ,
--- NOTE | 2021-06-08 09:19 | MRI_ITS ---
STUDY: MR RIGHT HIP ARTHROGRAPHY REASON FOR EXAM: Right hip and right leg pain for one year. TECHNIQUE: Standardized fat and water weighted pulse sequences were obtained in all 3 orthogonal planes after intra-articular instillation of 0.8 mL of dilute Dotarem. COMPARISON: Radiographs 05/05/2021 and 03/13/2018. FINDINGS: There is mild arthrosis of the right hip joint with mild chondral thinning (T2 sagittal image 19). Normal acetabulum. There is a tear of the right anterosuperior labrum (T1 sagittal images 17, 18). There is a femoral cam lesion (T1 coronal image 12). There is a small enchondroma in the anterior aspect of the femoral head (T2 sagittal image 15) measuring 1 cm in length. Normal femoral neck and intratrochanteric region. Normal gluteus minimus, medius and iliopsoas tendons and distal insertions. There is no trochanteric, iliopsoas or iliopectineal bursitis. Normal superior and inferior pubic rami. Normal pubic symphysis. Normal ischial tuberosity. Normal origin of the hamstring tendons. Normal visualized iliac wing. The sacroiliac joints are not included in the [id number]. There is mild extravasated contrast at the anterior aspect of the hip. MRI/Lower Ext/Jt Only/W Contrast IMPRESSION: Mild right hip arthrosis. Tear of the right anterosuperior labrum. 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 Electronically Signed: Domenico Savage MD at 12:53 EST Tel , Service support ,
[2021-06-08] MEDS: Lidocaine 2% (5ml sdv) 5 ML VIAL.MPF INFILT (09:30)
[2021-06-08] MEDS: Iopamidol 10 ML in Syringe 1 EACH 600 ML INTRAARTIC (09:30)
== END ==
PROVIDERS: PCP Internal Medicine; Referring Provider Orthopaedic Surgery; Visit Provider Orthopaedic Surgery
DX: M46.1 Sacroiliitis, not elsewhere classified (principal)
CPT/HCPCS: 27093; 73722; 77002; A9575; Q9967

== ENCOUNTER 2021-07-05 08:46 | Outpatient (CLI) | payer MEDICARE, SELFPAY ==
[2021-07-05 09:02] VITALS: BP 137/68; PULSE 89; RESP 16; TEMP 36; O2SAT 97; BMI 20.5
[2021-07-05] MEDS: 0.9% NaCl Peripheral Flush Adult/Peds IV (09:07)
[2021-07-05 09:27] VITALS: BP 118/61; PULSE 90; RESP 16; TEMP 36.3
[2021-07-05 10:30] VITALS: BP 106/64; PULSE 88; RESP 16; TEMP 36; O2SAT 98
[2021-07-05 11:27] VITALS: BP 130/76; PULSE 92; TEMP 36.2
[2021-07-05 11:51] VITALS: BP 122/60; PULSE 93; RESP 16; TEMP 36.2
[2021-07-05 12:51] VITALS: BP 108/86; PULSE 90; TEMP 36.4; O2SAT 96
== END 2021-07-05 23:59 | disposition short-term general hospital (02) ==
LOC: MEDOUTP 08:47
PROVIDERS: PCP Internal Medicine; Referring Provider Internal Medicine; Visit Provider Internal Medicine
DX: D64.9 Anemia, unspecified (principal)
CPT/HCPCS: 36415; 36430; 86850; 86900; 86901; 86920; 86922; J7040; P9016; A4216

== ENCOUNTER 2021-07-26 12:16 | Outpatient (CLI) | payer MEDICARE, SELFPAY ==
--- NOTE | 2021-07-26 12:18 | RAD_ITS ---
STUDY: X-RAY - LUMBAR SPINE REASON FOR EXAM: Female, 81 years old. Radiculopathy, lumbar region TECHNIQUE: 3 view(s) of the lumbar spine were obtained. COMPARISON: Comparison is made with prior study dated 12/09/2019. FINDINGS: Normal lumbar lordosis. There is a mild dextroscoliosis of the lumbar spine. Minimal anterior listhesis of L3 on L4. The patient is status post laminectomy and fusion at the L2-L3 level. The patient is status post bone grafting along the transverse bodies of the L4 and L5 vertebrae. There is multi-level degenerative disc disease with multi-level disc space narrowing. There is atherosclerotic calcification of the abdominal aorta without a demonstrated aneurysm. RAD/Lumbar Spine 2 or 3 Views IMPRESSION: Stable examination. Electronically Signed: Terrell Jules MD at 13:45 EST ,
== END 2021-07-26 23:59 | disposition short-term general hospital (02) ==
LOC: RAD 12:18
PROVIDERS: PCP Internal Medicine; Referring Provider Anesthesiology Pain Medicine; Visit Provider Anesthesiology Pain Medicine
DX: M54.16 Radiculopathy, lumbar region (principal)
CPT/HCPCS: 72100

== ENCOUNTER 2021-08-06 23:54 | Emergency (ER) | payer MEDICARE, SELFPAY ==
[2021-08-06 23:55] VITALS: BP 198/91; PULSE 102; RESP 16; TEMP 37.2; O2SAT 94; BMI 20.1
--- NOTE | 2021-08-07 00:25 | EX.ED.DYSGE1 ---
HPI History of Present Illness Chief Complaint: Ear Problem Narrative Narrative: Patient is an 81-year-old female who states she has had nasal congestion with slight cough for about 5 to 7 days. She states yesterday she began with left ear pain. She denies any discharge from the ear or injury. She states that she took her home medications which includes a pain pill and despite this she has had persistent left ear pain and secondary to this comes in for evaluation. PFSH PFSH Home Medications cyanocobalamin (vitamin B-12) 1,000 mcg IM UD 04/11/13 [History Last Taken 05/08/18] gabapentin 600 mg PO BID 04/11/13 [History Last Taken 05/08/18] glimepiride 1 mg PO DAILY 04/11/13 [History Last Taken 05/08/18] levothyroxine 25 mcg PO DAILY 04/11/13 [History Last Taken 05/08/18] melatonin 10 mg PO QHS 04/11/13 [History Last Taken 05/07/18] metformin 850 mg PO BIDCM 04/11/13 [History Last Taken 05/08/18] mirtazapine 15 mg PO QHS 04/11/13 [History Last Taken 05/07/18] paroxetine HCl [Paxil] 10 mg PO DAILY 04/11/13 [History Last Taken 05/08/18] bupropion HCl 150 mg PO DAILY 11/06/15 [History Last Taken 05/08/18] cyclobenzaprine 10 mg PO QHS 11/06/15 [History Last Taken 05/07/18] hydrocodone-acetaminophen 1 - 2 tab PO Q4H PRN PRN #12 tablet 12/14/16 [Rx Last Taken 05/07/18] acyclovir 1 applic TOPICAL 5X/DAY 05/08/18 [History Last Taken 05/08/18] cholecalciferol (vitamin D3) [Vitamin D3] 2,000 unit PO DAILY 05/08/18 [History Last Taken 05/08/18] lisinopril 10 mg PO BID 05/08/18 [History Last Taken 05/08/18] cefdinir 300 mg PO BID 10 Days #20 cap 08/07/21 [Rx Last Taken Unknown] skabhswp-nxrkmc-QD-thonzonium [Cortisporin-TC] 1 applic LEFT EAR 4X/DAY 10 Days #10 ml 08/07/21 [Rx Last Taken Unknown] prednisone 20 mg PO DAILY 5 Days #5 tab 08/07/21 [Rx Last Taken Unknown] Allergy/AdvReac Type Severity Reaction Status Date / Time Benzodiazepines Allergy Unknown Verified 07/05/21 09:06 ciprofloxacin [From Cipro] Allergy Itching Verified 07/05/21 09:06 ciprofloxacin HCl Allergy Itching Verified 07/05/21 09:06 [From Cipro] meperidine HCl [From Demerol] Allergy Unknown Verified 07/05/21 09:06 lorazepam [From Ativan] AdvReac Other Verified 07/05/21 09:06 nitrofurantoin AdvReac Vomiting Verified 07/05/21 09:06 [From Macrobid] nitrofurantoin AdvReac Vomiting Verified 07/05/21 09:06 macrocrystalline [From Macrobid] Sulfa (Sulfonamide AdvReac Vomiting Verified 07/05/21 09:06 Antibiotics) Xanthines AdvReac Vomiting Verified 07/05/21 09:06 Social History Smoking Status: Former smoker ROS ROS ED Constitutional Constitutional ED: Denies chills or fever(s) ENT ENT ED: Reports ear pain and rhinorrhea; Denies sore throat Cardiovascular Cardiovascular: Denies chest pain Respiratory/Chest Respiratory/Chest: Reports cough; Denies dyspnea Gastrointestinal Gastrointestinal: Denies abdominal pain, diarrhea, nausea or vomiting Genitourinary Genitourinary ED: Denies dysuria Musculoskeletal Musculoskeletal: Denies myalgias Integumentary Denies rash Neurologic Neurologic: Denies headache(s) Hematologic/Lymphatic Hematologic/Lymphatic: Denies easy bleeding or easy bruising EXAM Physical Exam Const Vital Signs: 08/06/21 23:55 Temperature 98.9 F Temperature Source Temporal Pulse Rate 102 H Respiratory Rate 16 Blood Pressure 198/91 H Blood Pressure Mean 126 Pulse Ox 94 Oxygen Delivery Method Room Air Positive well nourished and well developed General Appearance ED: well developed HEENT Reports moist mucous membranes HEENT Narrative: Right ear canal and TM are normal. The left ear canal is slightly erythematous and edematous. There is cerumen present as well and with the narrowing of the canal I cannot see the tympanic membrane. There is pain with external manipulation of the left ear. No pain on palpation over top the mastoids bilaterally. No malignant otitis externa changes noted. Eyes PERRL and EOMs intact bilaterally Neck supple Neck Narrative: Positive anterior cervical lymphadenopathy noted Resp normal respiratory effort and clear to auscultation bilaterally Cardio regular rate and regular rhythm Extremity normal to inspection Neuro oriented x3 and CN's II-XII intact bilaterally Sensorium / Orientation: alert Motor Exam: strength 5/5 throughout Psych mental status grossly normal Skin no rashes or lesions noted MDM MDM MDM Narrative Medical decision making narrative: Patient presented to the ER afebrile. She reported unilateral left ear pain with no fever or trauma. She did have 5 to 7 days of congestion and there is concern this could be secondary to an infection from derangement/obstruction of the eustachian tube. On exam the ear canals are asymmetric in size indicating otitis externa and this does correlate with pain with external manipulation of the left ear. She does not have changes to suggest malignant otitis externa and therefore I do not feel there is need for imaging or laboratory studies. The patient's tympanic membrane cannot be visualized and with concern that there is also a otitis media I will place her on oral antibiotics as well. However at this time as she does not have changes to suggest systemic infection or malignant otitis externa there is no need for admission or further work-up and she can be discharged home with symptomatic care Discharge Plan Triage Chief Complaint: Ear Problem ED Provider: Deandre Melton Dx/Rx/DC Orders Clinical Impression: Left otitis externa Instructions: ED Otitis Media Antibiotic ..., ED External Ear Infection (Adult) Prescriptions: New prednisone 20 mg tablet 20 mg PO DAILY 5 Days Qty: 5 RF: 0 cefdinir 300 mg capsule 300 mg PO BID 10 Days Qty: 20 RF: 0 Cortisporin-TC 3.3-3-10-0.5 mg/mL drops,suspension 1 applic LEFT EAR 4X/DAY 10 Days Qty: 10 RF: 0 No Action metformin 850 MG tablet 850 mg PO BIDCM RF: 0 levothyroxine 25 MCG tablet 25 mcg PO DAILY RF: 0 glimepiride 1 MG tablet 1 mg PO DAILY RF: 0 cyanocobalamin (vitamin B-12) 1,000 MCG/ML solution 1,000 mcg IM UD RF: 0 gabapentin 300 MG capsule 600 mg PO BID RF: 0 mirtazapine 15 MG tablet 15 mg PO QHS RF: 0 paroxetine HCl [Paxil] 40 MG tablet 10 mg PO DAILY RF: 0 melatonin 1 MG tablet 10 mg PO QHS RF: 0 cyclobenzaprine 10 MG tablet 10 mg PO QHS RF: 0 bupropion HCl 150 MG tablet extended release 24 hr 150 mg PO DAILY RF: 0 hydrocodone-acetaminophen 1 TABLET tablet 1 - 2 tab PO Q4H PRN PRN (Reason: Pain) Qty: 12 RF: 0 acyclovir 1 APPLIC ointment 1 applic topical 5X/DAY RF: 0 cholecalciferol (vitamin D3) [Vitamin D3] 1,000 UNIT tablet 2,000 unit PO DAILY RF: 0 lisinopril 10 MG tablet 10 mg PO BID RF: 0 Primary Care Provider: Melissa Montes Referrals: Melissa Montes MD [Primary Care Provider] - Disposition Disposition: Home, Self Care
[2021-08-07] MEDS: oxyCODONE 5 MG Tablet 10 MG PO (00:44)
[2021-08-07] MEDS: Cefdinir 300 MG Capsule PO (00:44)
[2021-08-07] MEDS: dexAMETHasone 10 MG/ML Vial PO.IVFORM (00:44)
[2021-08-07 01:38] VITALS: BP 180/85; PULSE 99; RESP 16; O2SAT 95
== END 2021-08-07 01:41 | disposition home or self-care (01) ==
LOC: ED 08-07 00:29
PROVIDERS: Emergency Provider Emergency Medicine; PCP Internal Medicine; Visit Provider Emergency Medicine
DX: H60.92 Unspecified otitis externa, left ear (principal); Z87.891 Personal history of nicotine dependence; Z79.890 Hormone replacement therapy; Z79.84 Long term (current) use of oral hypoglycemic drugs; Z79.899 Other long term (current) drug therapy; R05.9 Cough, unspecified
CPT/HCPCS: 99283